=== PATIENT | male | born 1940 | race Caucasian/White ===

== ENCOUNTER 2023-09-18 12:28 | Emergency (ER) | payer MEDICARE, OTHER, SELFPAY ==
[2023-09-18 12:36] VITALS: BP 125/85; PULSE 76; RESP 22; TEMP 36.4; O2SAT 96; BMI 25.0
--- NOTE | 2023-09-18 12:43 | CRLHL7_ITS ---
For Patients: As a result of the Century Cures Act, medical imaging exams and procedure reports are released immediately into your electronic medical record. You may view this report before your referring provider. If you have questions, please contact your health care provider. Indication: Trauma. Technique: Left wrist, 3 views. Comparison: None. Findings/Impression: Bones: Decreased osseous mineralization. Acute minimally displaced distal radius fracture with trace dorsal angulation. Additional minimally displaced ulnar styloid fracture. Joint spaces: Associated joint effusion. Soft tissues: Associated soft tissue swelling. Dictated by Prosper Puente MD @ 09/18/2023 1:33:36 PM (Electronically Signed)
--- NOTE | 2023-09-18 12:43 | CRLHL7_ITS ---
For Patients: As a result of the Cures Act, medical imaging exams and procedure reports are released immediately into your electronic medical record. You may view this report before your referring provider. If you have questions, please contact your health care provider. Indication: Trauma. Technique: Left shoulder, 3 views. Comparison: None. Findings/Impression: Bones: Superior elevation of the humerus likely related to chronic rotator cuff insufficiency. Otherwise, alignment is normal. No displaced fractures or bone lesions. Postsurgical changes of prior rotator cuff repair. Joint spaces: Moderate acromioclavicular and mild glenohumeral joint degenerative changes. Soft tissues: Unremarkable. Dictated by Prosper Puente MD @ 09/18/2023 1:26:11 PM (Electronically Signed)
--- NOTE | 2023-09-18 13:02 | ED_ITS ---
HPI - General Adult General Date Seen: 09/18/23 Chief complaint: Extremity Pain/Injury, Upper Stated complaint: L arm pain, fall Time Seen by Provider: 09/18/23 12:36 Source: patient and other Mode of arrival: ambulatory Limitations: no limitations History of Present Illness HPI narrative: Patient is an 82-year-old brought in by a friend. He had a fall yesterday while he was at work, he fell landing on his left arm. To me he complained of pain at the top of his shoulder, near the acromion. He has limited active range of motion, with abduction to only about 15?, extension is the same. Passive range of motion I am able to take him to 90?. He also has some bruising in his wrist area that his friend was concerned about. Patient did not complain of pain in that area, but he does have a little tenderness and a little pain with range of motion. No other injuries or complaints. Related Data Allergies Allergy/AdvReac Type Severity Reaction Status Date / Time Penicillins Allergy Unknown Verified 09/18/23 12:40 [facility] Surgical History (Updated 09/18/23 @ 14:57 by Brianna Agrawal) S/P arthroscopy of right shoulder (11/02/97) ?Z98.890 - Other specified postprocedural states (ICD-10) S/P arthroscopy of left shoulder (12/26/01) ?Z98.890 - Other specified postprocedural states (ICD-10) Social History Smoking Status: Smoker, status unknown Non-prescribed substance use: denies use Exam Narrative: Exam Narrative: Vital signs reviewed In general, alert, nontoxic elderly male. Hard of hearing. Head: Normocephalic, atraumatic. Neck: Nontender to palpation. Extremities: The left shoulder is point tender over the lateral shoulder. No obvious deformity. There is bruising noted on the dorsal and volar side of the wrist and distal forearm. A little bit of mild tenderness with compression of the radius and ulna. He has extension and flexion intact at the wrist but says it is mildly uncomfortable. Distal CMS normal. Skin: Warm dry well perfused. Const: Vital Signs, click to edit/add: Vital Signs - 24 hr 09/18/23 12:36 09/18/23 14:09 Temperature 97.6 F 97.6 F Pulse Rate [Pulse Oximeter] 76 76 Respiratory Rate 22 22 Blood Pressure [Le ft Upper Arm] 125/85 125/85 Pulse Oximetry 96 Oxygen Delivery Me thod Room Air Documenting provider has reviewed patient's vital signs: yes Course Course ED Course: Patient had x-rays of the left shoulder and the left wrist. In the left shoulder there are postsurgical changes but I do not see any acute findings. Of the wrist, there is a minimally displaced fracture of the radius and the ulnar styloid. Final radiology is the same. I placed a sandwich plan on the left wrist using [employer] into [employer] wraps. Tolerated well. Will give him a sling. We made him a follow-up appointment with Orthopedics. Injury of the shoulder is unclear at this time although he has previous rotator cuff surgery and certainly could have re-injured the rotator cuff. Vital Signs Vital signs: Initial Vital Signs Temperature 97.6 F 09/18/23 12:36 Temperature Source Temporal Artery Scan 09/18/23 12:36 Pulse Rate 76 09/18/23 12:36 Pulse Strength 3+ Normal 09/18/23 12:36 Respiratory Rate 22 09/18/23 12:36 Blood Pressure 125/85 09/18/23 12:36 Blood Pressure Mean 98 09/18/23 12:36 Pulse Oximetry 96 09/18/23 12:36 Oxygen Delivery Method Room Air 09/18/23 12:36 Vital Signs Temperature 97.6 F 09/18/23 12:36 Pulse Rate 76 09/18/23 12:36 Respiratory Rate 22 09/18/23 12:36 Blood Pressure 125/85 09/18/23 12:36 Pulse Oximetry 96 09/18/23 12:36 Oxygen Delivery Method Room Air 09/18/23 12:36 Temperature 97.6 F 09/18/23 14:09 Pulse Rate 76 09/18/23 14:09 Respiratory Rate 22 09/18/23 14:09 Blood Pressure 125/85 09/18/23 14:09 Pulse Oximetry 96 09/18/23 12:36 Oxygen Delivery Method Room Air 09/18/23 12:36 Discharge Plan Discharge Clinical Impression: Fracture of wrist, Injury of shoulder, left Patient Disposition: Home, Self-Care Condition: Stable Instructions: Rotator Cuff Injury (ED), Wrist Fracture in Adults (ED) Additional Instructions: Splint until follow-up. Sling as needed for comfort. Tylenol as needed for pain. Ice may be helpful as well. Return for new or worsening symptoms. Follow Up/Referrals: Rome Fuller MD [Primary Care Provider] - Stand Alone Forms: [employer] Info Instructions
[2023-09-18 14:09] VITALS: BP 125/85; PULSE 76; RESP 22; TEMP 36.4
== END 2023-09-18 14:05 | disposition home or self-care (01) ==
PROVIDERS: Emergency Provider Emergency Medicine; PCP Family Medicine
DX: S52.615A Nondisplaced fracture of left ulna styloid process, initial encounter for closed fracture (principal); S52.515A Nondisplaced fracture of left radial styloid process, initial encounter for closed fracture; W19.XXXA Unspecified fall, initial encounter
CPT/HCPCS: 29125; 73030; 73110; 99283; 99284

== ENCOUNTER 2024-03-03 07:25 | Outpatient (CLI) | payer MEDICARE, OTHER, SELFPAY ==
--- OUTSIDE RECORDS SUMMARY | 2024-03-03 07:31 | XMS_ITS | Data Portability ---
Author Name Unknown Address [address] [place] [address] Phone [phone] Organization [facility], [facility] Address [address] [place] [address] Assessment No assessment recorded. Plan of Treatment Reminders Order Date Submit Date Provider Last Modified By Organization Details Last Modified Time Details Appointments None recorded. Lab None recorded. Referral oncologist referral 2020 021 [facility], [address], [address], [place], [address], 11:44:19 Procedures None recorded. Surgeries None recorded. Imaging US, renal 2020 021 [email or web address] 30 [facility], [address], [place], [address], 08:44:55 CT, chest, w/ contrast 2020 021 [facility], [address], [place], [address], 17:12:12 Medication Orders gentamicin 40 mg/mL injection solution 2020 021 [email or web address] [facility], [address] [place] [address], [address], 10:40:40 Casodex 50 mg tablet 2020 021 [facility], [address], [place], [address], 10:40:42 Patient TargetsNo targets recorded. Patient InstructionsNo instructions recorded. Reason for Referral Referring Physician: Jamar pack, Urology, Encounter Date: 04/21/2021 Results Created Date Observation Date Name Description Value Unit Range Abnormal Flag LastModifiedBy Organization Detail LastModifiedTime 04/15/20 21 04/11/2021 measu remen t of post- voidi ng resid ual urine and/o r bladd er capac ity (PROC ) No observ ation record ed. [email or web address] Not Available 04/15/2021 09:20:26 04/21/20 21 04/19/2021 CT, chest , w/ contr ast No observ ation record ed. [email or web address] [facility] [address], [place], [address], 04/21/2021 17:12:12 04/21/20 21 04/19/2021 NM, bone scan, whole body No observ ation record ed. [email or web address] Not Available 04/21/2021 17:12:59 04/21/20 21 04/21/2021 imagi ng/di agnos tic resul t No observ ation record ed. [email or web address] Not Available 04/21/2021 17:15:10 08/19/20 21 08/15/2021 measu remen t of post- voidi ng resid ual urine and/o r bladd er capac ity (PROC ) No observ ation record ed. [email or web address] Not Available 08/19/2021 09:33:44 Result Notes None recorded. Procedures Surgical History Date Name Laterality Status Provider Name and Address Organization Details Recorded Time 04/21/20 21 Prostate Biopsy Procedure completed Jamar Moss MD [address] [place] [address],[address], [place], [address], [facility] 04/21/2021 10:14:53 laminectomy completed TAMRA Carrillo [facility] 04/21/2021 10:37:04 tonsillectomy completed TAMRA Carrillo [facility] 04/21/2021 10:37:18 Imaging Results Imaging Date Name Status LastModified by Organiz ation Details LastModified Time 04/11/2021 measurement of post-voiding residual urine and/or bladder capacity (PROC) completed Information not available 04/15/2021 09:20:26 04/19/2021 CT, chest, w/ contrast completed [email or web address] [facility] [address], [place], [address], 04/21/2021 17:12:12 04/19/2021 NM, bone scan, whole body completed Information not available 04/21/2021 17:12:59 04/21/2021 imaging/diagnos tic result completed [email or web address] Information not available 04/21/2021 17:15:10 08/15/2021 measurement of post-voiding residual urine and/or bladder capacity (PROC) completed Information not available 08/19/2021 09:33:44 Procedure Notes None recorded. Medical Equipment None Reported. Allergies Allergen ID Allergen Name Allergen Category Reaction Reaction Severity Criticality Documentation Date Start Date Code Code System Note Provider Name and Address Organization Details Recorded Time 414308 Medicinal product containin g penicilli n and acting as antibacte rial agent (product) medicatio n Not available Not available Not available 04/21/2021 74324 05 SNOMED Beverleybjorn Mosquedadasia lux [facility] 10:01:28 402168 bupropion Not available Not available Not available Not available 04/21/2021 74127 RxNorm Beverley Bahsultana lux [facility] 10:01:42 Medications Name Sig Start Date Stop Date Status Note LastModified by Organization Details LastModified Time Casodex 50 mg tablet Take 1 tablet every day by oral route. 2020 active Not Available Not Available Not Avai lable Cipro 500 mg tablet Cipro 500mg #8 PO BID starting day before biopsy 2020 active Cipro 500mg #8 BID starting day before biopsy Not Available Not Available Not Available gentamicin 40 mg/mL injection solution Take 80 mg by injection route. 2020 active fred barroso Not Available Not Available Not Available Vitals Date Recorded Body height Body mass index (BMI) Body weight Provider Name and Address Organization Details Last Updated DateTime 04/21/2021 172.72 cm 24 kg/m2 18597.59 g TAMRA Carrillo [facility] 04/21/2021 10:01:19 Social History Question Answer Notes LastModified by Organizat ion Details LastModified Time Tobacco Smoking Status Former Smoker 1991 Beverley MosquedaTAMRA izquierdo [facility] 04/21/2021 10:36:12 When Did You Quit Smoking? 14+yearssinc elastcigaret te [email or web address] Information not available 04/21/2021 What Was The Date Of Your Most Recent Tobacco Screening? 04/21/2021 [email or web address] Information not available 04/21/2021 Sex: Male Functional Status None recorded. Mental Status None recorded. Family History Nothing Reported. Medical History Condition Response Depression Y GERD/Acid Reflux Y Past Encounters Encounter ID Performer Location Encounter Start Date Encounter Closed Date Diagnosis/Indication Diagnosis SNOMED-CT Code [id number] Jamar Moss MD [facility] [address] [place] [address] 04/21/2021 09:38:47 04/25/2021 09:11:18 Prostate nodule 614240069491395 Renal mass 164996767 Lung mass 170633415 Lower urin noble tract symptoms due to benign prostatic hypertrophy 05685774556126 Health Concerns Section Related Observation LastModified by Organization Detai ls LastModified Time None Recorded Concern Status LastModified by Organization Details LastModified Time None Recorded Advance Directives Directive None Recorded Payers Encounter Date Sequence Insurance Name Policy Number Policy Arechiga Covered Member ID Arechiga Member ID Guarantor Name 04/21/2021 1 MEDICA - DOS ON OR AFTER 2020 - [employer] GOVERNMENT PROGRAMS - ADVANTAGE SOLUTION (MEDICARE REPLACEMENT/A DVANTAGE - PPO) [id number] Jose Chan [id number] Jose Chan Notes Date Note Type Note Provider Name and Address Organization Details Recorded Time 04/21/2021 text/html HPI Notes: 80 yo male presented with with constipation and frequent urination for 6 months - examination revealed Right prostate nodule (hard / fixed). PSA - 327. He was noted to have incomplete bladder emptying (PVR = 127 mL). Oxybutynin was stopped. He was started on Flomax 0.4 mg daily. 04/21/21 - He presents for TRUS bx of the prostate. urinary frequency. He voids every 60 minutes during the day and 2-3x/night. He still has urgency with occasional leakage and variable stream. He denies hesitancy or dysuria. His constipation has improved. PSA - 327.32 (04/11/21) CT scan (04/19/21) - Prostate - 3.4 cm mass in Right prostate - extensive right pelvic sidewall / retroperitoneal adenopathy - numerous sclerotic bone mets - Left renal mass (1.4 cm) (lower pole medial) - ? 2.5 cm mass in Left lower lung Bone scan (04/19/21) - diffuse skeletal metastases Jamar Moss MD [address], [place], [address], [facility] 04/21/2021 10:46:26
--- OUTSIDE RECORDS SUMMARY | 2024-03-03 07:31 | XMS_ITS | Clinical Summary ---
Author Name Unknown Organization [facility] Address [place], [place] [address] Care Team Providers Care Live Hanger Name Role Phone Rome Fuller MD Primary Care Provider [phone] Abdulkadir Sandoval Unavailable [phone] Jamar Moss MD Unavailable [phone] Allergies Active Allergy Reactions Criticality Noted Date Comments Bupropion 03/14/2010 Patient felt hot spots on back area, painful. Penicillins 05/24/2007 Medications Medication Sig Dispensed Refills Start Date End Date Status GLUCOSAMINE-CHONDR OITIN COMPLX CAP daily 0 11/23/2008 Active multivitamin (MVI) tablet Take 1 tablet by mouth once daily. 0 11/17/2014 Active aspirin chewable 81 mg chewable tablet Take 1 tablet by mouth once daily with a meal. 0 03/05/2020 Active apalutamide 60 mg tab Take 120 mg by mouth once daily. 0 02/16/2022 Active cyclobenzaprine (FLEXERIL) 5 mg tabletIndications: Mid back pain on left side Take 1 Tablet (5 mg) by mouth 3 times daily if needed for Muscle Spasm. May cause drowsiness. 30 Tablet 05/31/2022 Active albuterol HFA (PRO-AIR; VENTOLIN; PROVENTIL) 90 mcg/actuation inhalerIndications :Chronic obstructive pulmonary disease, unspecified COPD type (HC) Inhale 1-2 Puffs by mouth every 4 hours if needed for Shortness of Breath 1st choice. 1 Each 2 11/05/2023 Active atorvastatin (LIPITOR) 20 mg tabletIndications: Cerebrovascular accident (CVA) of left thalamus (HC) Take 1 Tablet (20 mg) by mouth at bedtime. For Cholesterol. 90 Tablet 3 11/05/2023 Active fluticasone (50 mcg per actuation) nasal solution (FLONASE)Indicatio ns:Seasonal allergic rhinitis, unspecified trigger Inhale 1 Sherrill to both nostrils once daily. 48 g 3 11/05/2023 Active tamsulosin (FLOMAX) 0.4 mg capsuleIndications :Benign prostatic hyperplasia with incomplete bladder emptying Take 1 Capsule (0.4 mg) by mouth once daily after a meal. 90 Capsule 3 11/05/2023 Active tiotropium (spiriva) 18 mcg inhalation capsuleIndications :Chronic obstructive pulmonary disease, unspecified COPD type (HC) Inhale 1 Capsule (18 mcg) by mouth once daily. 90 Capsule 3 11/05/2023 Active traZODone (DESYREL) 150 mg tabletIndications: Insomnia, idiopathic Take 1 Tablet (150 mg) by mouth at bedtime. For sleep. 90 Tablet 3 11/05/2023 Active diphenhydrAMINE-ac etaminophen 25-500 mg (TYLENOL PM) 25-500 mg tablet Take 1 Tablet by mouth. Active losartan (COZAAR) 25 mg tabletIndications: Nonrheumatic mitral valve regurgitation Take 1 Tablet (25 mg) by mouth once daily. 90 Tablet 3 11/09/2023 Active HYDROcodone-acetam inophen (10-325 mg/tablet) Take 1 Tablet by mouth 3 times daily if needed for Pain. Active naproxen sodium 220 mg cap Take 1 Tablet by mouth once daily. Active famotidine (PEPCID) 20 mg tablet Take 20 mg by mouth once daily. 09/19/2023 Active iron,carbonyl-tasha min C (Vitron-C) 65 mg iron- 125 mg Delayed-Release tablet Take 1 Tablet by mouth two times daily with meals. 11/22/2023 Active leuprolide, 3 month, (ELIGARD) 22.5 mg subcutaneous syringe Inject 22.5 mg subcutaneous. 01/31/2024 Active methylPREDNISolone sod suc (SOLU-MEDROL) 2 gram injection Inject 125 mg intravenous one time. 01/18/2023 Active mometasone-formote rol (DULERA) 200-5 mcg/actuation inhalerIndications :Chronic obstructive pulmonary disease, unspecified COPD type (HC) Inhale 2 Puffs by mouth two times daily. 39 g 3 12/07/2023 Active polyethylene glycol-electrolyte (GOLYTELY) 236-22.74-6.74 -5.86 gram suspensionIndicati ons:Encounter for screening colonoscopy Drink 2 liters the day before the procedure and 2 liters 6 hours prior to procedure. 4000 mL 02/01/2024 Active polyethylene glycoL (MIRALAX) 17 gram/scoop powderIndications: Constipation, unspecified constipation type Mix 8.5gm up to 17gm of powder in liquid and drink once daily as needed. Use as needed for constipation. 850 g 2 01/13/2024 Active clopidogreL (PLAVIX) 75 mg tablet Take 75 mg by mouth once daily. 02/27/2020 Discontinue d(*Patient states no longer taking) Active Problems Problem Noted Date Diagnosed Date Malignant neoplasm metastati c to lung, unspecified laterality 12/08/2023 Anemia, unspecified 12/07/2023 Systolic murmur 09/19/2023 Overview: Aug 2023: 1st heard. Secondary malignant neoplasm of bone 01/31/2022 Prostate cancer 01/31/2022 Cerebrovascular accident (CVA) of left thalamus 03/05/2020 Overview: February 2020. Plavix 75 mg daily for one month. Aspirin 81 mg lifelong. Adenomatous colon polyp 01/29/2018 Overview: Colonoscopy 01/2018 polyp, repeat in 5 years COPD (chronic obstructive pulmonary disease) Overview: November 2023: dulera increased to 200mg dose twice daily. Anxiety state, unspecified 02/28/2011 Osteoporosis, unspecified 03/14/2010 Shingles 03/11/2010 Esophageal reflux 11/02/2009 Overview: EGD 10/2009 reflux, repeat EGD in 5 years EGD 11/2014 no montoya's, no follow up needed PLMD (periodic limb movement disorder) 9 Central Sleep Apnea -summary note 01/04/2009 01/0 03/2009 Bilateral primary osteoarthritis of knee 007 Overview: Synvisc right knee not helpful 2010. Right. knee Cortisone Helpful Jul 2012. Repeat Right knee cortisone April 2013, great benefit for pain 2 weeks out and continuing. Jul 2014: Dr. Griffith did right knee cortisone. March 2015: Bilateral knee cortisone by Dr. Fuller. (First left knee cortisone injection), 90 % better 1 week out. May 2022: Repeat bilateral knee cortisone injections by Dr. Fuller. December 2022: Repeat bilateral knee cortisone injections by Dr. Fuller. Aug 2023: Repeat bilateral knee cortisone injections by Dr. Fuller. Insomnia, unspecified 10/30/2006 Resolved Problems Problem Noted Date Diagnosed Date Resolved Date Mild recurrent major depression 02/14/2010 02/28/2011 Unspecified sleep apnea 10/30/200603/20 Encounters Date Type Department Care Team Description 03/02/2024 Travel 02/22/2024 9:05 AM CDT Preop Visit [facility] [address] [place] [address] Rome Fuller MD Preoperative Exam (DOS: 03/03/2024/Colonoscopy and EGD/[facility]/Dr Bear) 02/22/2024 Travel 02/18/2024 Travel 01/29/2024 Telephone [facility] [address] [place] [address] Rome Fuller MD Questions 01/17/2024 Orders Only [facility] [address] [place] [address] Ramos Bear MD <No scans attached> 01/13/2024 Refill [facility] [address] [place] [address] Tia Lynne PA Refill Request (Polyethylene Glycol) 12/12/2023 Telephone [facility] [address] [place] [address] Ramos Bear MD Referral 12/07/2023 9:05 AM NEWS PHOTOGRAPHER [facility] [address] [facility] [address] Rome Fuller MD Follow Up (Blood Pressure and review labs) 12/07/2023 Travel 12/05/2023 Telephone [facility] [address] [place] [address] Rome Fuller MD Referral (Referral for GI Consult) from Last 3 Months Immunizations Name Administration Dates Next Due AMB INFLUENZA IIV3 (AGE 65+ YRS) PF (Flu Clinic Only) 09/20/2017 AMB Influenza, IIV3 (Age >=3 years)(Flu Clinic Only) 08/14/2012,10/16/2008 Amb Influenza, Inact (High-d ose) (Flu Clinic Only) 08/21/2014 COVID-19 Vaccine Spikevax (M oderna 50mcg/0.5mL) 12YO+ [id number] Formula PF 09/17/2023 COVID-19 vaccine (Pfizer-Bio NTech 30mcg/0.3mL) 12YO+ BIVALENT PF, MDV 11/03/2022 COVID-19 vaccine (Pfizer-Bio NTech 30mcg/0.3mL) 12YO+ MERARI-SUCROSE PF, MDV 04/12/2022 COVID-19 vaccine (Pfizer-Bio NTech 30mcg/0.3mL) PF, MDV 09/23/2021,01/25/2021,01/04/2021 Influenza A (H1N1), Inactivated 11/17/2009 Influenza, High-dose Inactivated 08/17/2016,08/19,08/21/2014 Influenza, IIV3 (Age 6-35 mos) 08/25/2011,2009 Influenza, IIV3 (Age >=3 years) 09/02/20 13,08/14/2012,08/25/2011,10/16,09/19/2007,09/23/2005,09/03/2004 ,09/30/2003 Influenza, Inactivated AIIV4 (Age 65+ Years) Preserv Free 09/17/2023,09/11/2022,08/15/2021,08/14 Influenza, Inactivated IIV3 (Age 65+ Years) Preserv Free 08/21/2019,07/16/2018,09/20/2017 Pneumococcal Poly,23-Valent (Pneumovax) 08/10/2005 Pneumococcal conj 13-Valent (Prevnar 13) 09/03/2015 RSV, Recombinant ADJ Reconst ituted (Arexvy 120MCG/0.5mL) 11/16/2023 Td (Age >=7 Years) 05/19/2002 Td, Preservative Free (age >= 7 Years) 1 Tdap 10/11/2019 Family History Medical History Relation Name Comments Diabetes Mother borderline Heart Disease Mother Cancer-breast Sister 1 metastatic Other Sister 2 fibromyalgia Unknown Sister 3 Relation Name Status Comments Father MVA Mother Sister 1 Sister 2 Sister 3 Social History Tobacco Use Types Packs/Day Years Used Date Smoking Tobacco: Former Cigarettes Q uit: 05/24/1992 Smokeless Tobacco: Never Tobacco Cessation:Counseling Given: Yes Comments:quit in his 20s Alcohol Use Standard Drinks/Week Comments No 0 (1 standard drink = 0.6 oz pur e alcohol) PHQ-2 Answer Date Recorded PHQ-2 TOTAL SCORE 2 11/05/2023 Social Connections Answer Date Recorded Frequency of Communication with Friends and Fami ly 0 09/14/2023 Financial Resource Strain Answer Date R ecorded Difficulty of Paying Living Expenses 3 09/14/2023 Difficulty of Paying Living Expenses Not on file 09/14/2023 Food Insecurity Answer Date Recorded Worried About Running Out of Food in the Last Ye ar 1 09/14/2023 Transportation Needs Answer Date Record ed Lack of Transportation (Medical) 1 09/14/2023 Housing Stability Answer Date Recorded Unable to Pay for Housing in the Last Year 1 09/14/2023 Sex and Gender Information Value Date Recorded Sex Assigned at Not on file Gender Identity Not on file Sexual Orientation Not on file Obstetrics History Last Filed Vital Signs Vital Sign Reading Time Taken Comments Blood Pressure 128/64 02/22/2024 9:09 AM CDT Pulse 60 02/22/2024 9:09 AM CDT Temperature 36.8 ??C (98.3 ??F) 11/30/2023 1:03 PM CS T Respiratory Rate 24 03/22/2018 6:08 PM CDT Oxygen Saturation 100% 02/22/2024 9:09 AM CDT Inhaled Oxygen Concentration - - Weight 72.8 kg (160 lb 8 oz) 02/22/2024 9:09 AM CDT Height 162.6 cm (5' 4) 11/05/2023 8:35 AM NEWS PHOTOGRAPHER Body Mass Index 27.55 11/05/2023 8:35 AM NEWS PHOTOGRAPHER Plan of Treatment Upcoming Encounters Date Type Department Care Team (Late st Contact Info) Description 03/03/2024 7:45 AM CDT Office Visit [facility] at [facility] [address] [place] [address] Ramos Bear MD [address] [place] [address] 03/24/2024 7:40 AM CDT Office Visit [facility] [address] [place] [address] Shahzad Griffith MD [address] [place] [address] Health Maintenance Due Date Last Done Comments Zoster (shingles) series for age 50+ (1 of 2) 1959 COVID-19 vaccine series ( season) 2023 09/17/2023, 11/03/2022, 04/12/2022, Additional history exists Influenza for age 65+ 07/20/2024 09/17/2023 , 09/11/2022, 08/15/2021, Additional history exists BMI (ht and wt on same day) for age 18+ 11/05/2024 11/05/2023, 11/03/2022, 02/22/2021, Additional history exists Medicare Wellness for age 65+ 11/05/2024, 11/03/2022, 02/22/2021 Depression screening for age 12+ 11/09/2024 11/09/2023, 11/05/2023, 11/03/2022, Additional history exists Tetanus booster 10/11/2029 10/11/2019, 11/19, 05/19/2002 Pneumococcal series for age 65+ Completed 5, 08/10/2005 Tdap Completed 10/11/2019 Procedures Procedure Name Priority Date/Time Associated Diagnosis Comments CREATININE Routine 02/22/2024 10:09 AM CDT Preoperative examination POTASSIUM Routine 02/22/2024 10:09 AM CDT Preoperative examination from Last 3 Months Results * POTASSIUM (02/22/2024 10:09 AM CDT) POTASSIUM 4.6 3.5 - 5.1 mmol/L 02/22/2024 5:16 PM CDT [facility] Blood BLOOD SPECIMEN / Unknown Venipuncture / Unknown 02/22/2024 10:09 AM CDT 02/22/2024 10:11 AM CDT Rome Fuller MD CHEMISTRY [facility] [address] [place] [id number], * (ABNORMAL) CREATININE (02/22/2024 10:09 AM CDT) eGFR 70(L) >90 mL/min/1.7 3m2 02/22/2024 5:16 PM CDT [facility] Comment:As of 2022, eG FR is calculated by the CKD-EPI creatinine equation without race adjustment. ??eGFR can be influenced by muscle mass, exercise, and diet. ??The reported eGFR is an estimation only and is only applicable if the renal function is stable. CREATININE 1.05 0.70 - 1.20 mg/dL 02/22/2024 5:16 PM CDT [facility] Blood BLOOD SPECIMEN / Unknown Venipuncture / Unknown 02/22/2024 10:09 AM CDT 02/22/2024 10:11 AM CDT Rome Fuller MD CHEMISTRY [facility] [address] [place] [id number], [place] from Last 3 Months Additional Health Concerns Infection Onset Date Last Indicated [id number] Comment:Order contact precautions. Order consult to Infection Prevention to determine if patient may be removed from precautions. +MDRO <12/07/21, urine, ESBL E.coli> 12/07/2021 12/07/2021 Care Teams Live Hanger Relationship Specialty Start Date End Date Rome Fuller MD [address] [place] [address] PCP - General Family Practice 08/23/23 Abdulkadir Sandoval MBBS [address] [address] Oncology Oncology 11/05/23 Jamar Moss MD [address] [address] Urology Surgery - Urology 11/05/23
--- NOTE | 2024-03-03 09:28 | P.ANES_ITS ---
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
--- NOTE | 2024-03-03 09:37 | W.ANESCHARGE ---
Anesthesia Charges Start Date/Time Anesthesia Start Date: 03/03/24 Anesthesia Start Time: 08:40 Stop Date/Time Anesthesia Stop Date: 03/03/24 Anesthesia Stop Time: 09:20 Summary Extremes of Age - Over 70 or under 1: MDA
== END 2024-03-03 07:26 | disposition home or self-care (01) ==
PROVIDERS: PCP Family Medicine; Visit Provider Internal Medicine Gastroenterology
DX: D50.9 Iron deficiency anemia, unspecified (principal); K63.5 Polyp of colon; K57.30 Diverticulosis of large intestine without perforation or abscess without bleeding; Z86.010 Personal history of colon polyps
CPT/HCPCS: 00813; 43239; 45385; 88305; 99100; J2704

== ENCOUNTER 2024-05-13 14:15 | Outpatient (CLI) | payer MEDICARE, OTHER, SELFPAY ==
--- OUTSIDE RECORDS SUMMARY | 2024-05-13 14:17 | XMS_ITS | Clinical Summary ---
Author Organization [facility] Address [place], [place] [address] Care Team Providers Care Winding Machine Operator Name Role Phone Rome Fuller MD Primary Care Provider [phone] Abdulkadir Sandoval Unavailable [phone] Jamar Moss MD Unavailable [phone] Allergies Active Allergy Reactions Criticality Noted Date Comments Bupropion 03/14/2010 Patient felt hot spots on back area, painful. Penicillins 05/24/2007 Medications Medication Sig Dispensed Refills Start Date End Date Status GLUCOSAMINE-CHONDROI TIN COMPLX CAP daily 0 11/23/2008 Active multivitamin (MVI) tablet Take 1 tablet by mouth once daily. 0 11/17/2014 Active aspirin chewable 81 mg chewable tablet Take 1 tablet by mouth once daily with a meal. 0 03/05/2020 Active apalutamide 60 mg tab Take 120 mg by mouth once daily. 0 02/16/2022 Active cyclobenzaprine (FLEXERIL) 5 mg tabletIndications:Mi d back pain on left side Take 1 Tablet (5 mg) by mouth 3 times daily if needed for Muscle Spasm. May cause drowsiness. 30 Tablet 05/31/2022 Active albuterol HFA (PRO-AIR; VENTOLIN; PROVENTIL) 90 mcg/actuation inhalerIndications:C hronic obstructive pulmonary disease, unspecified COPD type (HC) Inhale 1-2 Puffs by mouth every 4 hours if needed for Shortness of Breath 1st choice. 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 For Cholesterol. 90 Tablet 3 11/05/2023 Active fluticasone (50 mcg per actuation) nasal solution (FLONASE)Indications :Seasonal allergic rhinitis, unspecified trigger Inhale 1 [place] to both nostrils once daily. 48 g 3 11/05/2023 Active tamsulosin (FLOMAX) 0.4 mg capsuleIndications:B enign prostatic hyperplasia with incomplete bladder emptying Take 1 Capsule (0.4 mg) by mouth once daily after a meal. 90 Capsule 3 11/05/2023 Active traZODone (DESYREL) 150 mg tabletIndications:In somnia, idiopathic Take 1 Tablet (150 mg) by mouth at bedtime. For sleep. 90 Tablet 3 11/05/2023 Active diphenhydrAMINE-acet aminophen 25-500 mg (TYLENOL PM) 25-500 mg tablet Take 1 Tablet by mouth. Active losartan (COZAAR) 25 mg tabletIndications:No nrheumatic mitral valve regurgitation Take 1 Tablet (25 mg) by mouth once daily. 90 Tablet 3 11/09/2023 Active HYDROcodone-acetamin ophen (10-325 mg/tablet) Take 1 Tablet by mouth 3 times daily if needed for Pain. Active naproxen sodium 220 mg cap Take 1 Tablet by mouth once daily. Active famotidine (PEPCID) 20 mg tablet Take 20 mg by mouth once daily. 09/19/2023 Active iron,carbonyl-vitami n C (Vitron-C) 65 mg iron- 125 mg Delayed-Release tablet Take 1 Tablet by mouth two times daily with meals. 11/22/2023 Active leuprolide, 3 month, (ELIGARD) 22.5 mg subcutaneous syringe Inject 22.5 mg subcutaneous. 01/31/2024 Active methylPREDNISolone sod suc (SOLU-MEDROL) 2 gram injection Inject 125 mg intravenous one time. 01/18/2023 Active polyethylene glycol-electrolyte (GOLYTELY) 236-22.74-6.74 -5.86 gram suspensionIndication s:Encounter for screening colonoscopy Drink 2 liters the day before the procedure and 2 liters 6 hours prior to procedure. 4000 mL 02/01/2024 Active polyethylene glycoL (MIRALAX) 17 gram/scoop powderIndications:Co nstipation, unspecified constipation type Mix 8.5gm up to 17gm of powder in liquid and drink once daily as needed. Use as needed for constipation. 850 g 2 01/13/2024 Active fluticasone vmz-eylylyevflld-hme anterol (TRELEGY ELLIPTA) 200-62.5-25 mcg inhalerIndications:C hronic obstructive pulmonary disease, unspecified COPD type (HC) Inhale 1 Puff by mouth once daily. Rinse mouth after use 90 Each 3 03/25/2024 Active Active Problems Problem Noted Date Diagnosed Date [...] Colonoscopy 01/2018 polyp, repeat in 5 years Colonoscopy 02/2024 hyperplastic polyp, no follow up needed COPD (chronic obstructive pulmonary disease) Overview: November 2023: dulera increased to 200mg dose twice daily. February 2024: Due to cost Trelligy ellipta prescription sent and Removing spiriva and dulera. Cost was only reason for change. Anxiety state, unspecified 02/28/2011 Osteoporosis, unspecified 03/14/2010 Shingles 03/11/2010 Esophageal reflux 11/02/2009 Overview: EGD 10/2009 reflux, repeat EGD in 5 years EGD 11/2014 no montoya's, no follow up needed EGD 02/2024 normal, no follow up needed PLMD (periodic limb [...] Encounters Date Type Department Care Team Description 05/11/2024 Travel 03/25/2024 Telephone [facility] [address] [place] [address] Rome Fuller MD Follow Up (Returning Provider Call) 03/24/2024 7:40 AM CDT Office Visit [facility] [address] [place] [address] Shahzad Griffith MD Musculoskeletal Problem (Consult bilateral knee pain right is worse per Dr. Fuller discuss [place]) 03/24/2024 Telephone [facility] [address] [place] [address] Rome Fuller MD Pharmacist Medication Management (tiotropium (spiriva)/mometasone-fo rmoterol (DULERA) /FYI alternates treligy elyipa or brectri aerofphere) 03/24/2024 Travel 03/17/2024 Refill [facility] [address] [place] [address] Tia Lynne PA Refill Request (Hydrocodone-acetaminop hen) 03/03/2024 7:45 AM CDT Office Visit [facility] at [address] [phone] Ramos Bear MD 03/03/2024 Lab Requisition [facility] [phone] Ramos Bear MD 03/03/2024 Lab Requisition [facility] [phone] Ramos Bear MD 03/02/2024 Travel 02/22/2024 9:05 AM CDT Preop Visit [facility] [address] [place] [address] Rome Fuller MD Preoperative Exam (DOS: 03/03/2024/Colonoscopy and EGD/[facility]/Dr Bear) 02/22/2024 Travel 02/18/2024 Travel from Last 3 Months Immunizations Name Administration Dates Next Due AMB INFLUENZA IIV3 (AGE 65+ YRS) PF (Flu Clinic Only) 09/20/2017 AMB Influenza, IIV3 (Age >=3 years)(Flu Clinic Only) 08/14/2012,10/16/2008 Amb Influenza, Inact (High-d ose) (Flu Clinic Only) 08/21/2014 COVID-19 Vaccine Spikevax (M oderna 50mcg/0.5mL) 12YO+ [id number] Formula PF 02/28/2024,09/17/2023 COVID-19 vaccine (Pfizer-Bio NTech 30mcg/0.3mL) 12YO+ BIVALENT [...] Sign Reading Time Taken Comments Blood Pressure 145/74 03/24/2024 7:48 AM CDT Pulse 67 03/24/2024 7:48 AM CDT Temperature 36.1 ??C (97 ??F) 03/24/2024 7:48 AM CDT Respiratory Rate 24 03/22/2018 6:08 PM CDT Oxygen Saturation 99% 03/24/2024 7:48 AM CDT Inhaled Oxygen Concentration - - Weight 72.3 kg (159 lb 6.4 oz) 03/24/2024 7:48 A M CDT Height 162.6 cm (5' 4) 11/05/2023 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 Body Mass Index 27.36 11/05/2023 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 Plan of Treatment Upcoming Encounters Date Type Department Care Team (Late st Contact Info) Description 05/13/2024 3:00 PM CDT Procedure Only [facility] [address] [place] [phone] Shahzad Griffith MD [address] [place] [address] Arrived 05/15/2024 11:10 AM CDT Office Visit [facility] [address] [place] [address] Rome Fuller MD [address] [place] [address] Health Maintenance Due Date Last Done Comments Zoster (shingles) series for age 50+ (1 of 2) 1959 COVID-19 vaccine series ( season) 2024 02/28/2024, 09/17/2023, 11/03/2022, Additional history exists Influenza for age 65+ [...] Procedure Name Priority Date/Time Associated Diagnosis Comments LAB TRACKING EVENT Routine 03/03/2024 9: 15 AM CDT LAB TRACKING EVENT Routine 03/03/2024 8: 50 AM CDT PATH TISSUE EXAM Routine 03/03/2024 8:50 AM CDT ESOPHAGOGASTRODUODENOSCOPY Routine 03/03 12:00 AM CDT Iron deficiency anemia, unspecified iron deficiency anemia type COLONOSCOPY SCREENING Routine 03/03/2024 12:00 AM CDT Iron deficiency anemia, unspecified iron deficiency anemia type CREATININE Routine 02/22/2024 10:09 AM CDT Preoperative examination POTASSIUM Routine 02/22/2024 10:09 AM CDT Preoperative examination from Last 3 Months Results * LAB TRACKING EVENT (03/03/2024 9:15 AM CDT) Only the most recent of2 resultswithin the time period is included. Other (Other) Client Collect / Unknown 03/03/2024 9:15 AM CDT 03/03/2024 9:48 PM CDT Ramos Bear MD LAB BILL ONLY [facility] [address] [place] [address], * PATH TISSUE EXAM (03/03/2024 8:50 AM CDT) Case Report Pathology Report ?Case: [id number] ? Authorizing Provider: ??Ramos Bear MD ?? Collected: ? 03/03/2024 0850 ? Ordering Location: ? [facility] ?Received: ?03/04/2024 0848 ? Pathologist: ? Erik Watson, ? MD ? Specimens: ?? A) - Duodenum ? B) - ? C) - Distal Esophagus Biopsy ? D) - Descending Colon Biopsy ? 03/05/2024 9:36 AM [facility] Final Diagnosis A) DUODENUM, BIOPSY: 1. Normal duodenal mucosa 2. Negative for celiac disease and other enteropathy B) STOMACH, ANTRUM AND BODY, BIOPSY: 1. Normal gastric antral and body mucosae 2. Negative for inflammation, Helicobacter and atrophy C) ESOPHAGUS, DISTAL, BIOPSY: 1. Normal esophageal squamous mucosa 2. Normal gastric fundic mucosa 3. Negative for reflux changes and eosinophilic esophagitis 4. Negative for intestinal metaplasia and dysplasia D) COLON, DESCENDING, POLYPECTOMY: Hyperplastic polyp 03/05/2024 9:36 AM [facility] Clinical Information Iron deficiency anemia. Upper endoscopy is grossly normal. Colonoscopy demonstrates a 4 mm descending colon polyp. 03/05/2024 9:36 AM [facility] Gross Description A) Received in formalin are 4 combs mucosal fragments ranging from 3 mm to 5 mm in greatest dimension, which are entirely submitted in one cassette. It is labeled with the patient's name and designated duodenal biopsy. B) Received in formalin are 6 combs mucosal fragments ranging from 3 mm to 5 mm in greatest dimension, which are entirely submitted in one cassette. It is labeled with the patient's name and designated random stomach biopsies. C) Received in formalin are 5 combs mucosal fragments ranging from 2 mm to 4 mm in greatest dimension, which are entirely submitted in one cassette. It is labeled with the patient's name and designated distal esophagus biopsies. D) Received in formalin is a combs mucosal fragment measuring 5 mm in greatest dimension, which is entirely submitted in one cassette. It is labeled with the patient's name and designated colon-descendi ng. Yuli Richards 03/04/2024 8:58 AM 03/05/2024 9:36 AM CDT [facility] Microscopic Description The final diagnosis is based on microscopic examination of appropriate sections of all specimens. 03/05/2024 9:36 AM CDT [facility] Additional Information Interpreted at [facility] - [address], [place] [address] 03/05/2024 9:36 AM CDT [facility] Other (Duodenum) 03/03/2024 8:50 AM CDT 03/04/2024 8:48 AM CDT Specimen (specimen) 03/03/2024 8:50 AM CDT 03/04/2024 8:48 AM CDT Specimen (specimen) (Distal Esophagus Biopsy) 03/03/2024 8:50 AM CDT 03/04/2024 8:48 AM CDT Specimen (specimen) (Descending Colon Biopsy) 03/03/2024 8:50 AM CDT 03/04/2024 8:48 AM CDT Ramos Bear MD PATHOLOGY/CYTOLOG Y Performing Organization Address City/State/[facility] Co de Phone Number [facility] [address] [place] [address], * ESOPHAGOGASTRODUODENOSCOPY (03/03/2024 12:00 AM CDT) Ramos Bear MD GI PROCEDURE ORD * COLONOSCOPY SCREENING (03/03/2024 12:00 AM CDT) Ramos Bear MD GI PROCEDURE ORD * POTASSIUM (02/22/2024 10:09 AM CDT) POTASSIUM 4.6 3.5 - 5.1 mmol/L 02/22/2024 5:16 PM CDT [facility] Blood BLOOD SPECIMEN / Unknown Venipuncture / Unknown 02/22/2024 10:09 AM CDT 02/22/2024 10:11 AM CDT Rome Fuller MD CHEMISTRY Performing Organization Address [facility] Co de Phone Number [facility] [address] [place] [address], * (ABNORMAL) CREATININE (02/22/2024 10:09 AM CDT) eGFR 70(L) >90 mL/min/1.7 3m2 02/22/2024 5:16 PM CDT [facility] Comment:As of 2022, eG FR is calculated by the CKD-EPI creatinine equation without race adjustment. ??eGFR can be influenced by muscle mass, exercise, and diet. ??The reported eGFR is an estimation only and is only applicable if the renal function is stable. CREATININE 1.05 0.70 - 1.20 mg/dL 02/22/2024 5:16 PM CDT [facility] Blood BLOOD SPECIMEN / Unknown Venipuncture / Unknown 02/22/2024 10:09 AM CDT 02/22/2024 10:11 AM CDT Rome Fuller MD CHEMISTRY Performing Organization Address [facility] Co de Phone Number [facility] [address] [place] [address], from Last 3 Months Additional Health Concerns Infection Onset Date Last Indicated MDRO-GNB Comment:Order contact precautions. Order consult to Infection Prevention to determine if patient may be removed from precautions. +MDRO <12/07/21, urine, ESBL E.coli> 12/07/2021 12/07/2021 Care Teams Winding Machine Operator Relationship Specialty Start Date End Date Rome Fuller MD [address] [place] [address] PCP - General Family Practice 08/23/23 Abdulkadir Sandoval MBBS [address] [address] Oncology Oncology 11/05/23 Jmaar Moss MD [address] [address] Urology Surgery - Urology 11/05/23
== END 2024-05-13 14:16 | disposition home or self-care (01) ==
LOC: INJ CL 14:15
PROVIDERS: PCP Family Medicine; Visit Provider Family Medicine
DX: M17.11 Unilateral primary osteoarthritis, right knee (principal); M25.561 Pain in right knee
CPT/HCPCS: 64454

== ENCOUNTER 2024-05-20 13:04 | Outpatient (CLI) | payer MEDICARE, OTHER, SELFPAY ==
--- OUTSIDE RECORDS SUMMARY | 2024-05-20 13:07 | XMS_ITS | Clinical Summary ---
Author Organization [facility] Address [place], [place] [address] Care Team Providers Care Biology Manager Name Role Phone Rome Fuller MD Primary Care Provider [phone] Abdulkadir Sandoval Unavailable [phone] Jamar Moss MD Unavailable [phone] Allergies Active Allergy Reactions Criticality Noted Date [...] :Seasonal allergic rhinitis, unspecified trigger Inhale 1 Peculiar to both nostrils once daily. 48 g [...] constipation. 850 g 2 01/13/2024 Active fluticasone znc-kdhauhsaiwds-yfr anterol (TRELEGY ELLIPTA) 200-62.5-25 mcg inhalerIndications:C hronic [...] Encounters Date Type Department Care Team Description 05/20/2024 2:00 PM CDT Procedure Only [facility] [address] [place] [address] Shahzad Griffith MD Arrived 05/19/2024 Travel 05/15/2024 12:00 PM CDT Ancillary Procedure [facility] [address] [place] [address] Arrived 05/15/2024 11:10 AM CDT Office Visit [facility] [address] [place] [address] Rome Fuller MD Ear Problem (Check both ears - possibly needs cleaning) 05/15/2024 Travel 05/13/2024 3:00 PM CDT Procedure Only [facility] [address] [place] [address] Shahzad Griffith MD Procedure (Right knee genicular nerve block ) 05/13/[address] [facility] Scanner 1 scan: (1-Ord) [facility], RT SUPERIOR MEDIAL, SUPERIOR LATERAL AND INFERIOR MEDIAL GENICULAR NERVE BLOCKS UNDER FLUROSC, 05/13/2024 05/11/2024 Travel 03/25/2024 Telephone [facility] [address] [place] [address] Rome Fuller MD Follow Up (Returning Provider Call) 03/24/2024 7:40 AM CDT Office Visit [facility] [address] [place] [address] Shahzad Griffith MD Musculoskeletal Problem (Consult bilateral knee pain right is worse per Dr. Fuller discuss Coolief) 03/24/2024 Telephone [facility] [address] [place] [address] Rome Fuller MD Pharmacist Medication Management (tiotropium (spiriva)/mometasone-f ormoterol (DULERA) /FYI alternates treligy elyipa or brectri aerofphere) 03/24/2024 Travel 03/17/2024 Refill [facility] [address] [place] [address] Tia Lynne PA Refill Request (Hydrocodone-acetamino phen) 03/03/2024 7:45 AM CDT Office Visit [facility] at [facility] [address] [place] [address] Ramos Bear MD 03/03/2024 Lab Requisition [facility] [phone] Ramos Bear MD 03/03/2024 Lab Requisition [facility] [phone] Ramos Bear MD 03/02/2024 Travel 02/22/2024 9:05 AM CDT Preop Visit [facility] [address] [place] [address] Rome Fuller MD Preoperative Exam (DOS: 03/03/2024/Colonoscopy and EGD/[facility]/Dr Bear) 02/22/2024 Travel from Last 3 Months Immunizations Name Administration Dates Next Due AMB INFLUENZA IIV3 (AGE 65+ YRS) PF (Flu Clinic Only) 09/20/2017 AMB Influenza, IIV3 (Age >=3 years)(Flu Clinic Only) 08/14/2012,10/16/2008 Amb Influenza, Inact (High-d ose) (Flu Clinic Only) 08/21/2014 COVID-19 Vaccine Spikevax (M oderna 50mcg/0.5mL) 12YO+ 6037-2633 Formula PF 02/28/2024,09/17/2023 COVID-19 vaccine (Pfizer-Bio NTech [...] Sign Reading Time Taken Comments Blood Pressure 149/74 05/15/2024 11:16 AM CDT BP med taken about 10am Pulse 60 05/15/2024 11:16 AM CDT Temperature 36.1 ??C (97 ??F) 03/24/2024 7:4 8 AM CDT Respiratory Rate 24 03/22/2018 6:08 PM CDT Oxygen Saturation 100% 05/15/2024 11: 14 AM CDT Inhaled Oxygen Concentration - - Weight 69.3 kg (152 lb 12.8 oz) 05/15/2024 11:14 AM CDT Height 162.6 cm (5' 4) 11/05/2023 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 Body Mass Index 26.23 11/05/2023 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 Plan of Treatment Upcoming Encounters Date Type Department Care Team (Late st Contact Info) Description 05/20/2024 2:00 PM CDT Procedure Only [facility] at [facility] [address] [place] [address] Shahzad Griffith MD [address] [place] [address] Arrived Health Maintenance Due Date Last Done Comments Zoster (shingles) series for age 50+ (1 of 2) 1959 COVID-19 vaccine series (2022-24 season) 2024 02/28/2024, 09/17/2023, 11/03/2022, Additional history [...] Procedure Name Priority Date/Time Associated Diagnosis Comments XR HIP 1 VIEW W PELVIS RIGHT Routine 12:09 PM CDT Right buttock pain SCAN-OPERATIVE/PROCEDURE REPORT 05/13/2024 12:00 AM CDT LAB TRACKING EVENT Routine 03/03/2024 9:15 AM CDT LAB TRACKING EVENT Routine 03/03/2024 8:50 AM CDT PATH TISSUE EXAM Routine 03/03/2024 8:50 AM CDT ESOPHAGOGASTRODUODENOSCOPY Routine 03/03 12:00 AM CDT Iron deficiency anemia, unspecified iron deficiency anemia type COLONOSCOPY SCREENING Routine 03/03/2024 12:00 AM CDT Iron deficiency anemia, unspecified iron deficiency anemia type CREATININE Routine 02/22/2024 10:09 AM CDT Preoperative examination POTASSIUM Routine 02/22/2024 10:09 AM CDT Preoperative examination from Last 3 Months Results * XR HIP 1 VIEW W PELVIS RIGHT (05/15/2024 12:09 PM CDT) Anatomical Region Laterality Modality HIPS, HIPR, Pelvis Computed Radi ography 05/18/2024 6:50 AM CDT Narrative 05/18/2024 6:50 AM CDT For Patients: ??As a result of the Cures Act, medical imaging exams and procedure reports are released immediately into your electronic medical record. ??You may view this report before your referring provider. ??If you have questions, please contact your health care provider. Indication: Right buttock pain. Technique: One-view pelvis. One-view right hip Comparison: CT abdomen pelvis 01/02/2023. Findings: Bones: Alignment is normal. No fractures. No suspicious osseous lesions. Joint spaces: Minimal bilateral hip arthrosis. Advanced lower lumbar spondylosis. Soft tissues: Large colonic and rectal stool burden. Impression: 1. Minimal bilateral hip arthrosis. 2. Advanced lower lumbar spondylosis. 3. Large colonic and rectal stool burden. Dictated by Abad Wray MD @ 05/18/2024 6:50:16 AM (Electronically Signed) Procedure Note Abad Wray MD - 05/18/2024 For Patients: As a result of the Cures Act, medical imagingexams and procedure reports are released immediately into your electronicmedical record. You may view this report before your referring provider.If you have questions, please contact your health care provider. Indication: Right buttock pain. Technique: One-view pelvis. One-view right hip Comparison: CT abdomen pelvis 01/02/2023. Findings: Bones: Alignment is normal. No fractures. No suspicious osseous lesions. Joint spaces: Minimal bilateral hip arthrosis. Advanced lower lumbarspondylosis. Soft tissues: Large colonic and rectal stool burden. Impression: 1. Minimal bilateral hip arthrosis. 2. Advanced lower lumbar spondylosis. 3. Large colonic and rectal stool burden. Dictated by Abad Wray MD @ 05/18/2024 6:50:16 AM (Electronically Signed) Rome Fuller MD GENERAL IMAGING * SCAN-OPERATIVE/PROCEDURE REPORT (05/13/2024 12:00 AM CDT) Scanner OTHER * LAB TRACKING EVENT (03/03/2024 9:15 AM CDT) Only the most recent of2 resultswithin the time period is included. Other (Other) Client Collect / Unknown 03/03/2024 9:15 AM CDT 03/03/2024 9:48 PM CDT Ramos Bear MD LAB BILL ONLY [facility] [address] [place] [address], * PATH TISSUE EXAM (03/03/2024 8:50 AM CDT) Case Report Pathology Report ?Case: [id number] ? Authorizing Provider: ??Ramos Bear MD ?? Collected: ? 03/03/2024 0850 ? Ordering Location: ? [facility] ?Received: ?03/04/2024 0848 ? Pathologist: ? Erik Watson, ? MD ? Specimens: ?? A) - Duodenum ? B) - ? C) - Distal Esophagus Biopsy ? D) - Descending Colon Biopsy ? 03/05/2024 9:36 AM CDT [facility] Final Diagnosis A) DUODENUM, BIOPSY: 1. [...] DESCENDING, POLYPECTOMY: Hyperplastic polyp 03/05/2024 9:36 AM CDT [facility] Clinical Information Iron deficiency anemia. Upper endoscopy is grossly normal. Colonoscopy demonstrates a 4 mm descending colon polyp. 03/05/2024 9:36 AM CDT [facility] Gross Description A) Received in [...] 03/04/2024 8:58 AM 03/05/2024 9:36 AM CDT [facility] Microscopic Description The final diagnosis is based on microscopic examination of appropriate sections of all specimens. 03/05/2024 9:36 AM CDT [facility] Additional Information [facility] - [address], [place] [address] 03/05/2024 9:36 AM CDT [facility] Other (Duodenum) 03/03/2024 8:50 AM CDT 03/04/2024 8:48 AM CDT Specimen (specimen) 03/03/2024 8:50 AM CDT 03/04/2024 8:48 AM CDT Specimen (specimen) (Distal Esophagus Biopsy) 03/03/2024 8:50 AM CDT 03/04/2024 8:48 AM CDT Specimen (specimen) (Descending Colon Biopsy) 03/03/2024 8:50 AM CDT 03/04/2024 8:48 AM CDT Ramos Bear MD PATHOLOGY/CYTOLOG Y Performing Organization Address [facility] Co de Phone Number [facility] [address] [address], [place] * ESOPHAGOGASTRODUODENOSCOPY (03/03/2024 12:00 AM CDT) Ramos Bear MD GI PROCEDURE ORD * COLONOSCOPY SCREENING (03/03/2024 12:00 AM CDT) Ramos Bear MD GI PROCEDURE ORD * POTASSIUM (02/22/2024 10:09 AM CDT) POTASSIUM 4.6 3.5 - 5.1 mmol/L 02/22/2024 5:16 PM CDT [facility] Blood BLOOD SPECIMEN / Unknown Venipuncture / Unknown 02/22/2024 10:09 AM CDT 02/22/2024 10:11 AM CDT Rome Fuller MD CHEMISTRY Performing Organization Address [facility] Co de Phone Number [facility] [address] [address], * (ABNORMAL) CREATININE (02/22/2024 10:09 AM CDT) eGFR 70(L) >90 mL/min/1.7 3m2 02/22/2024 5:16 PM CDT [facility] Comment:As of 2022, eG FR is calculated by the CKD-EPI creatinine equation without race adjustment. ??eGFR can be influenced by muscle mass, exercise, and diet. ??The reported eGFR is an estimation only and is only applicable if the renal function is stable. CREATININE 1.05 0.70 - 1.20 mg/dL 02/22/2024 5:16 PM CDT [facility] Blood BLOOD SPECIMEN / Unknown Venipuncture / Unknown 02/22/2024 10:09 AM CDT 02/22/2024 10:11 AM CDT Rome Fuller MD CHEMISTRY [facility] [address] [place] [address], from Last 3 Months Additional Health Concerns Infection Onset Date Last Indicated [id number] Comment:Order contact precautions. Order consult to Infection Prevention to determine if patient may be removed from precautions. +MDRO <12/07/21, urine, ESBL E.coli> 12/07/2021 12/07/2021 Care Teams Biology Manager Relationship Specialty Start Date End Date Rome Fuller MD [address] [place] [phone] PCP - General Family Practice 08/23/23 Abdulkadir Sandoval MBBS [address] [address] Oncology Oncology 11/05/23 Jamar Moss MD [address] [address] Urology Surgery - Urology 11/05/23
== END 2024-05-20 13:05 | disposition home or self-care (01) ==
LOC: INJ CL 13:05
PROVIDERS: PCP Family Medicine; Visit Provider Family Medicine
DX: M17.11 Unilateral primary osteoarthritis, right knee (principal); M25.561 Pain in right knee; G89.29 Other chronic pain
CPT/HCPCS: 64624; J2250; J3010

== ENCOUNTER 2025-07-14 20:11 | Emergency (ER) | payer MEDICARE, OTHER, SELFPAY ==
--- OUTSIDE RECORDS SUMMARY | 2025-07-14 20:14 | XMS_ITS ---
Author Name Interface, [id number] lity Address [address] [place] [address] [facility] Oncology Address [facility] [address] [address] Allergies and Adverse Reactions Plan Reason for Visit Encounters Immunizations Diagnostic Results Medications Problems Vital Signs
--- OUTSIDE RECORDS SUMMARY | 2025-07-14 20:14 | XMS_ITS | CCD ---
Author Name Interface, [id number] lity Address [address] [place] [address] [address] [place] [address] [facility] Oncology Address [address] [facility] [address] [place] [address] Care Team Providers Care Kennel Manager Dog Track Name Role Phone Abdulkadir Campo Unavailable Unavailable Allergies and Adverse Reactions Care Plan Reason for Visit Encounters Functional Status Diagnostic Results Medications Problems Procedures Social History Visits Vital Signs Notes Section
--- OUTSIDE RECORDS SUMMARY | 2025-07-14 20:14 | XMS_ITS | Clinical Summary ---
Author Organization [email or web address] [facility] Address [facility] [place] [address] Care Team Providers Care Vehicle Inspector Name Role Phone Rome Fuller MD Primary Care Provider [phone] Abdulkadir Sandoval Unavailable [phone] Jamar Moss MD Unavailable [phone] Rene Valdivia MD Unavailable [phone] Allergies Active Allergy Reactions Criticality Noted Date Comments Bupropion 03/14/2010 Patient felt hot spots on back area, painful. Penicillins *Unknown 05/24/2007 Medications multivitamin (MVI) tablet Take 1 tablet by mouth once daily. 0 11/17/20 14 Active famotidine (PEPCID) 20 mg tablet Take 20 mg by mouth once daily. 09/19/20 23 Active iron,carbonyl-vit tang C (Vitron-C) 65 mg iron- 125 mg Delayed-Release tablet Take 1 Tablet by mouth two times daily with meals. 11/22/19 24 Active diphenhydrAMINE-a cetaminophen 25-500 mg (Tylenol PM Extra Strength) 25-500 mg tablet Take 1 Tablet by mouth at bedtime if needed. Max acetaminophen dose: 4000mg in 24 hrs. Active glucosam/chond-ms m1/C/sloan/bor (GLUCOSAMINE-EVI D-MSM COMPLEX ORAL) Take 1 Capsule by mouth once daily. Active cetirizine (ZYRTEC) 10 mg tabletIndications :Allergy, sequela Take 1 Tablet (10 mg) by mouth once daily. 09/06/20 24 Active tamsulosin 0.4 mg capsuleIndication s:Benign prostatic hyperplasia with incomplete bladder emptying Take 1 Capsule (0.4 mg) by mouth once daily after a meal. 90 Capsule 2 11/21/19 25 Active acetaminophen (TYLENOL EXTRA STRGTH) 500 mg tabletIndications :S/P total knee arthroplasty, left Take 2 Tablets (1,000 mg) by mouth every 6 hours. Max acetaminophen dose: 4000mg in 24 hrs. If taking Tylenol PM at night, use that instead of night time dose of regular Tylenol. 200 Tablet 5 11:00 AM HAIR OR BEAUTY SALON MANAGER 12/06/19 25 Active sennosides-docusa te (SENOKOT S) (8.6-50 mg) tabletIndications :S/P total knee arthroplasty, left Take 1-3 Tablets by mouth two times daily as needed 100 Tablet 5 11:00 AM HAIR OR BEAUTY SALON MANAGER 12/06/19 25 Active aspirin (ECOTRIN) 81 mg enteric coated tabletIndications :S/P total knee arthroplasty, left Take 1 Tablet (81 mg) by mouth two times daily with meals. Take for 6 weeks following surgery, do not stop taking until 6 weeks after surgery. 84 Tablet 5 11:00 AM HAIR OR BEAUTY SALON MANAGER 12/06/19 25 Active traZODone (DESYREL) 150 mg tabletIndications :Insomnia, idiopathic Take 1 Tablet (150 mg) by mouth at bedtime. For sleep. 90 Tablet 3 12/16/19 25 Active atorvastatin (LIPITOR) 20 mg tabletIndications :Cerebrovascular accident (CVA) of left thalamus (HC) Take 1 Tablet (20 mg) by mouth at bedtime. For Cholesterol. 90 Tablet 3 01/18/20 25 Active losartan 25 mg tabletIndications :Nonrheumatic mitral valve regurgitation Take 1 Tablet (25 mg) by mouth once daily. 90 Tablet 3 04/24/20 25 Active fluticasone (50 mcg per actuation) nasal solution (FLONASE)Indicati ons:Seasonal allergic rhinitis, unspecified trigger Inhale 1 [place] in both nostrils once daily. 48 g 2 04/29/20 25 Active fluticasone fur-umeclidinium- vilanterol (TRELEGY ELLIPTA) 200-62.5-25 mcg inhalerIndication s:Chronic obstructive pulmonary disease, unspecified COPD type (HC) Inhale 1 Puff by mouth once daily. Rinse mouth after use 180 Each 05/29/20 25 Active albuterol HFA (PRO-AIR; VENTOLIN; PROVENTIL) 90 mcg/actuation inhalerIndication s:Chronic obstructive pulmonary disease, unspecified COPD type (HC) Inhale 1-2 Puffs by mouth every 4 hours if needed for Shortness of Breath 1st choice. 1 Each 2 05/29/20 25 Active polyethylene glycoL (MIRALAX) 17 gram/scoop powderIndications :Constipation, unspecified constipation type Mix 1 scoop (17 g) in liquid then take by mouth once daily if needed for Constipation. Hold if loose stools. 510 g 1 07/05/20 25 Active polyethylene glycoL 17 gram/scoop powderIndications :Constipation, unspecified constipation type Mix 1 scoop (17 g) in liquid then take by mouth once daily if needed for Constipation. 510 g 02/14/20 25 025 Discontin ued(Reord er (E-cancel not sent)) polyethylene glycoL (MIRALAX) 17 gram/scoop powderIndications :Constipation, unspecified constipation type Mix 1 scoop (17 g) in liquid then take by mouth once daily if needed for Constipation. 510 g 07/01/20 25 025 Discontin ued(Reord er (E-cancel not sent)) Active Problems Problem Noted Date Diagnosed Date Unilateral primary osteoarthritis, left knee Acquired iron deficiency anemia due to decreased absorption 10/23/2024 HTN (hypertension) 10/23/2024 Status post total knee replacement, right 2023 S/P total knee arthroplasty, right 09/05/2408/19 Primary osteoarthritis of right knee 09/05/2024 Bilateral primary osteoarthritis of knee 024 Overview (05/25/2024): May 2024: Right knee coolief procedure by Dr. Griffith. Malignant neoplasm metastatic to lung 12/08/2023 Anemia 12/07/2023 Systolic murmur 09/19/2023 Overview (09/19/2023): Aug 2023: 1st heard. Malignant neoplasm metastatic to bone 01/31/2022 Primary malignant neoplasm of prostate Cerebrovascular accident (CVA) 03/05/2020 Overview (03/05/2020): February 2020. Plavix 75 mg daily for one month. Aspirin 81 mg lifelong. Adenomatous colon polyp 01/29/2018 Overview (03/05/2024): Colonoscopy 01/2018 polyp, repeat in 5 years Colonoscopy 02/2024 hyperplastic polyp, no follow up needed COPD (chronic obstructive pulmonary disease) Overview (03/25/2024): November 2023: dulera increased to 200mg dose twice daily. February 2024: Due to cost Trelligy ellipta prescription sent and Removing spiriva and dulera. Cost was only reason for change. Anxiety state, unspecified 02/28/2011 Osteoporosis, unspecified 03/14/2010 Shingles 03/11/2010 Gastroesophageal reflux disease 11/02/2009 Overview (03/05/2024): EGD 10/2009 reflux, repeat EGD in 5 years EGD 11/2014 no montoya's, no follow up needed EGD 02/2024 normal, no follow up needed PLMD (periodic limb movement disorder) 9 Central Sleep Apnea -summary note 01/04/2009/0 03/2009 Bilateral primary osteoarthritis of knee 007 Overview (09/05/2023): Synvisc right knee not helpful 2010. Right. [...] bilateral knee cortisone injections by Dr. Fuller. Persistent insomnia 10/30/2006 Resolved Problems Problem Noted Date Diagnosed Date Resolved Date Closed fracture of carpal bone 10/23/2024 10/23/2024 Closed fracture of right clavicle 10/23/2024 10/23/2024 Mild recurrent major depression 02/14/2010 02/28/2011 Unspecified sleep apnea 10/30/200603/20 Encounters Date Type Department Care Team Description 06/29/2025 Refill [facility] [address] [place] [address] Rome Fuller MD Refill Request (Polyethylene glycol) 06/02/2025 1:30 PM CDT Office Visit [facility] [address] [facility] [address] [place] [address] Judy Joyner PA Surgical Followup 06/02/2025 Travel 05/31/2025 Travel 05/29/2025 10:45 AM CDT Office Visit [facility] [address] [place] [address] Rome Fuller MD Medicare ANNUAL (subsequent) Visit (Age 84) 05/29/2025 Travel 05/26/[address] [facility] [address] [facility] [address] [place] [address] Judy Joyner PA Refill Request (PANTOPRAZOLE SODIUM 40 MG TBEC) 05/24/2025 Travel 05/11/2025 1:00 PM CDT Ancillary Procedure [facility] [address] [place] [address] 05/11/2025 Travel 04/27/2025 Refill [facility] [address] [place] [address] Rome Fuller MD Refill Request (Fluticasone) 04/24/2025 Refill [facility] [address] [facility] [phone] Rudolph Martinez MD Refill Request (Losartan) from Last 3 Months Immunizations Immunization Administration Dates Next Due AMB INFLUENZA IIV3 (AGE 65+ YRS) PF (Flu Clinic Only) 09/20/2017 AMB Influenza, IIV3 (Age >=3 years)(Flu Clinic Only) 08/14/2012,10/16/2008 Amb Influenza, Inact (High-d ose) (Flu Clinic Only) 08/21/2014 COVID-19 VACCINE SPIKEVAX (M ODERNA 50MCG/0.5ML) 12YO+ PFS 09/11/2024,02/28/2024,09/17/2023 COVID-19 vaccine (VivaBioCell-Bio NTech 30mcg/0.3mL) 12YO+ BIVALENT PF, MDV 11/03/2022 COVID-19 vaccine (Pfizer-Bio NTech 30mcg/0.3mL) 12YO+ MERARI-SUCROSE PF, MDV 04/12/2022 COVID-19 vaccine (VivaBioCell-Bio NTech 30mcg/0.3mL) PF, MDV 09/23/2021,01/25/2021,01/04/2021 Influenza A (H1N1), Inactivated 11/17/2009 Influenza, High-dose Inactivated 08/17/2016,08/19,08/21/2014 Influenza, IIV3 (Age 6-35 mos) 08/25/2011,2009 Influenza, IIV3 (Age >=3 years) 09/02/20 13,08/14/2012,08/25/2011,10/16,09/19/2007,09/23/2005,09/03/2004 ,09/30/2003 Influenza, Inactivated AIIV4 (Age 65+ Years) Preserv Free 09/17/2023,09/11/2022,08/15/2021,08/14 Influenza, Inactivated IIV3 (Age 65+ Years) Preserv Free 09/11/2024,08/21/2019,07/16/2018,09/20 Pneumococcal Poly,23-Valent (Pneumovax) 08/10/2005 Pneumococcal conj 13-Valent [...] Years Used Date Smoking Tobacco: Former Cigarettes 1 10 Q uit: 05/24/1992 Smokeless Tobacco: Never Tobacco Cessation:Counseling Given: Yes Comments:quit in his 20s Alcohol Use Standard Drinks/Week Comments No 0 (1 standard drink = 0.6 oz pur e alcohol) PHQ-2 Answer Date Recorded PHQ-2 TOTAL SCORE 0 05/29/2025 Social Connections Answer Date Recorded Do you often feel lonely or isolated from those around you? 0 10/19/2024 Financial Resource Strain Answer Date R ecorded Difficulty of Paying Living Expenses 3 10/19/2024 Difficulty of Paying Living Expenses Not on file 10/19/2024 Food Insecurity Answer Date Recorded Do you worry your food will run out before you are able to buy more? 1 10/19/2024 Transportation Needs Answer Date Record ed Does lack of transportation keep you from medica l appointments? 1 10/19/2024 Does lack of transportation keep you from work, meetings or getting things that you need? 1 10/19/2024 Housing Stability Answer Date Recorded What is your housing situation today? 1 10/19/2024 Utilities Answer Date Recorded Do you have trouble paying f or utilities (for example, heat, electricity, water, phone)? 1 10/19/2024 Sex and Gender Information Value Date Recorded Sex Assigned at Not on file Legal Sex Male 6:02 AM HAIR OR BEAUTY SALON MANAGER Gender Identity Not on file Sexual Orientation Not on file Obstetrics History Last Filed Vital Signs Vital Sign Reading Time Taken Comments Blood Pressure 109/67 05/29/2025 10:51 AM CDT Pulse 64 05/29/2025 10:51 AM CDT Temperature 36.7 C (98.1 F) 12/06/2024 8:00 AM HAIR OR BEAUTY SALON MANAGER Respiratory Rate 18 12/06/2024 8:00 AM HAIR OR BEAUTY SALON MANAGER Oxygen Saturation 100% 05/29/2025 10:51 AM CDT Inhaled Oxygen Concentration - - Weight 72.8 kg (160 lb 9.6 oz) 05/29/2025 10:51 AM CDT Height 163.2 cm (5' 4.25) 05/29/2025 10:51 AM C DT Body Mass Index 27.35 05/29/2025 10:51 AM CDT Plan of Treatment Upcoming Encounters Date Type Department Care Team (Late st Contact Info) Description 12/01/2025 10:00 AM HAIR OR BEAUTY SALON MANAGER Office Visit [facility] [address] [place] [address] [place] [address] [place] [address] Health Maintenance Due Date Last Done Comments Zoster (shingles) series for age 50+ (1 of 2) 1959 COVID-19 vaccine series (9 - Pfizer risk season) 2025 09/11/2024, 02/28/2024, 09/17/2023, Additional history exists Influenza Vaccine (#1) 2025 , 09/17/2023, 09/11/2022, Additional history exists BMI (ht and wt on same day) for age 18+ 05/29/2026 05/29/2025, 11/21/2024, 11/05/2023, Additional history exists Depression screening for age 12+ 05/29/2026 05/29/2025, 11/21/2024, 11/09/2023, Additional history exists Medicare Wellness for age 65+ 05/30/2026 05/29/2025, 11/05/2023, 11/03/2022, Additional history exists Tetanus booster 10/11/2029 10/11/2019, 11/19, 05/19/2002 Pneumococcal series for age 50+ Completed 09/03/2015, 08/10/2005 RSV vaccine for adults or Completed 11/16/2023 Hepatitis B series for 19+ Aged Out N o longer eligible based on patient's age to complete this topic Medical Devices Implanted Type Area Gourmet Coffee Attendant Device Identifier Shelf Expiration Date Model / Serial / Lot Cmnt Bone 40g Simplex P Non Atb Mv - [id number] Implanted:Qty: 1 on 09/05/2024 by Satish Canela DO at [facility] Right: Knee [employer] 09/18/2026 6191-1-010 / / [id number] Cmnt Bone 40g Simplex P Non Atb Mv - [id number] Implanted:Qty: 1 on 09/05/2024 by Satish Canela DO at [facility] Right: Knee [employer] 07/19/2026 6191-1-010 / / [id number] Baseplate Tib Sz 5 Triathlon Pe - [id number] Implanted:Qty: 1 on 09/05/2024 by Satish Canela DO at [facility] Right: Knee [employer] 03/03/2029 5521-B-500 / / [id number] Fem Rt Sz 5 Triathlon Cruc Retco Cr - [id number] Implanted:Qty: 1 on 09/05/2024 by Satish Canela DO at [facility] Right: Knee [employer] 01/02/2029 5510-F-502 / / [id number] Insert Tib Sz 5 9mm Knee X3 Condylar Stabilizing Triathlon - [id number] Implanted:Qty: 1 on 09/05/2024 by Satish Canela DO at [facility] Right: Knee [employer] 04/16/2029 5531-G-509 -E / / [id number] Implant Patellar [id number] Knee X3 Asymmetric Triathlon - [id number] Implanted:Qty: 1 on 09/05/2024 by Satish Canela DO at [facility] Right: Knee [employer] 12/19/2028 5551-G-381 -E / / [id number] Baseplate Tib Sz 6 Triathlon Pe - [id number] Implanted:Qty: 1 on 12/05/2024 by Satish Canela DO at [facility] Left: Knee [employer] 03/13/2029 5521-B-600 / / [id number] Fem Lt Sz 6 Triathlon Cruc Retco Cr - [id number] Implanted:Qty: 1 on 12/05/2024 by Satish Canela DO at [facility] Left: Knee [employer] 11/19/2028 5510-F-601 / / [id number] Implant Patellar [id number] Knee X3 Asymmetric Triathlon - [id number] Implanted:Qty: 1 on 12/05/2024 by Satish Canela DO at [facility] Left: Knee [employer] 2028 5551-G-381 -E / / [id number] Insert Tib Sz 6 9mm Knee X3 Condylar Stabilizing Triathlon - [id number] Implanted:Qty: 1 on 12/05/2024 by Satish Canela DO at [facility] Left: Knee [employer] 06/25/2029 5531-G-609 -E / / [id number] Cmnt Bone Simplex Hv Us 1 Pack - [id number] Implanted:Qty: 2 on 12/05/2024 by Satish Canela DO at [facility] Left: Knee [employer] 03/18/2026 6194-1-001 / / [id number] Explanted Type Area Gourmet Coffee Attendant Device Identifier Shelf Expiration Date Model / Serial / Lot Pin Bone Fix [id number] - [id number] Explanted:Qty: 1 on 09/05/2024 at [facility] Right: Knee [employer] [id number] / / Inactive See # [id number] Pin Bone Fix 3.7oeg081up - [id number] Explanted:Qty: 1 on 09/05/2024 at [facility] Right: Knee [employer] [id number] / / Pin Bone Fix [id number] Strl - [id number] Explanted:Qty: 1 on 12/05/2024 by Satish Canela DO at [facility] Left: Azooo [id number] / / Pin Bone Fix [id number] - [id number] Explanted:Qty: 1 on 12/05/2024 by Satish Canela DO at [facility] Left: Knee [employer] [id number] / / Procedures Procedure Name Priority Date/Time Associated Diagnosis Comments ECHO TTE COMPLETE WO CONTRAST Routine 05/11/2025 1:23 PM CDT Nonrheumatic mitral valve regurgitation from Last 3 Months Results * ECHO TTE COMPLETE WO CONTRAST (05/11/2025 1:23 PM CDT) AORTIC VALVE MEAN PG 13 mmHg EJECTION FRACTION 72 % PEAK TR VELOCITY 3.2 m/s LVEDD 4.2 cm EJECTION FRACTION 70 - 75% Anatomical Region Laterality Modality Ultrasound 05/11/2025 1:05 PM CDT Narrative 05/11/2025 2:18 PM CDT ECHOCARDIOGRAM ISABEL CHAN : 1940 84 years Study Date: 05/11/2025 1:05:14 PM Gender: M BP: 110/56 mmHg Height: 168.00 cm BSA: 1.83 m Weight: 73.00 kg Tech: [facility] Referring MD: RENE VALDIVIA Site: [facility] Reading Location: Mobile-OP Patient Location: Outpatient. Procedure: 2D, Color Doppler and Spectral Doppler. Indication for study: Nonrheumatic mitral valve regurgitation Cardiac Rhythm: Regular.Study quality: Good. Final Impressions: 1. Normal LV size, mildly increased wall thickness, normal function with an estimated EF of 70 - 75%. 2. Right ventricular cavity size is normal, global systolic RV function is normal. 3. Moderately enlarged left atrium. 4. The mitral valve is sclerotic with probably moderate mitral regurgitation, eccentric anteromedially directed jet. No indirect markers of severe (e velocity 1m/s, no PV systolic reversal). 5. Moderately increased estimated pulmonary pressures by tricuspid regurgitation velocity and right atrial pressure (41 mmHg plus RAP). Comparison Compared to prior exam of 10/31/23: The PA pressure is higher. The degree of MR appears similar. Chamber Sizes and Function Normal left ventricular size, mildly increased wall thickness, normal global systolic function with an estimated EF of 70 - 75%. No resting regional wall motion abnormality visualized. Left atrial size is moderately enlarged. Left atrial pressure is normal. Right ventricular cavity size is normal, global systolic RV function is normal. RV wall thickness is normal. The right atrium is normal. Right atrial volume index is 13 ml/m . Right atrial area is 13 cm . The pulmonary artery is of normal size and origin. The sinus of Valsalva is normal sized. The ascending aorta is normal sized. Valves, RV Pressures and Diastolic Function The aortic valve is trileaflet and sclerotic, no stenosis and no regurgitation. The mitral valve is sclerotic, moderate mitral regurgitation, eccentric jet directed anteromedially suggests posterior mitral valve leaflet dysfunction. Normal diastolic function for age. The tricuspid valve is normal in structure, mild tricuspid regurgitation. The tricuspid regurgitant velocity is 3.2 m/s, the estimated right ventricular systolic pressure is 41 mmHg plus right atrial pressure. There is moderately increased estimated pulmonary pressure by tricuspid regurgitation velocity and right atrial pressure. The pulmonic valve is normal. No pulmonary regurgitation. Masses, Effusion, Shunts There is no pericardial effusion. The inferior vena cava is normal sized, respiratory size variation greater than 50%. No left to right shunting was detected by limited color flow Doppler interrogation of the interatrial septum. MEASUREMENTS AND CALCULATIONS 2-D Measurements and LV Function: LVID (d) 4.2 cm LV FS% (2D) 42 % LVID (s) 2.5 cm LVOT diameter 2.2 cm IVS (d) 1.3 cm HR 63 bpm LVPW (d) 1.3 cm LA Vol index 37 ml/m2 Ao Sinus 3.6 cm RA Vol index 13 ml/m2 Ao Sinus ULN 4.1 cm * RA area 13 cm Asc Ao 3.8 cm RV Basal Diam 3.5 cm Asc Ao ULN 4.3 cm * LA 3.9 cm * Input age outside of range, reported values correspond to Age = 78 Diastology: Mitral Tissue Doppler Pulmonary veins E Peak 1.0 m/s e', Septum 0.08 m/s Pulm s 61.4 cm/s A Peak 1.2 m/s e', Lateral 0.08 m/s Pulm d 43.2 cm/s E/A 0.9 E/e' Average 12.86 Pulm s/d ratio 1.42 DT 246 msec Aortic Valve: Vmax 2.3 m/s SHIRAZ (V) 2.31 cm VTI 0.56 m SHIRAZ (I) 1.86 cm LVOT V max 1.4 m/s Max PG 20 mmHg LVOT VTI 0.27 m Mean PG 13 mmHg SV 104 ml Dim Index 0.49 SV index 57 ml/m CO 6.5 l/min CI 3.6 l/min/m Mitral Valve: MVA 3.1 cm MV P 1/2 71 msec MV Mean G 3 mmHg MV VTI 0.44 m Tricuspid Valve and estimated PA pressures: TR Vmax 3.2 m/s TAPSE 2.4 cm TR maxG 41 mmHg Pulmonic Valve: PV AT 135 msec . This study was interpreted by an [facility] accredited facility. Final Procedure Note Fabio See MD - 05/11/2025 ECHOCARDIOGRAM ISABEL CHAN : 1940 84 years Study Date: 05/11/2025 1:05:14 PM Gender: M BP: 110/56 mmHg Height: 168.00 cm BSA: 1.83 m Weight: 73.00 kg Tech: [facility] Referring MD: RENE VALDIVIA Site: [facility] Reading Location: Mobile-OP Patient Location: Outpatient. Procedure: 2D, Color Doppler and Spectral Doppler. Indication for study: Nonrheumatic mitral valve regurgitation Cardiac Rhythm: Regular.Study quality: Good. Final Impressions: 1. Normal LV size, mildly increased wall thickness, normal function withan estimated EF of 70 - 75%. 2. Right ventricular cavity size is normal, global systolic RV functionis normal. 3. Moderately enlarged left atrium. 4. The mitral valve is sclerotic with probably moderate mitralregurgitation, eccentric anteromedially directed jet. No indirect markersof severe (e velocity 1m/s, no PV systolic reversal). 5. Moderately increased estimated pulmonary pressures by tricuspidregurgitation velocity and right atrial pressure (41 mmHg plus RAP). Comparison Compared to prior exam of 10/31/23: The PA pressure is higher. The degree of MR appears similar. Chamber Sizes and Function Normal left ventricular size, mildly increased wall thickness, normalglobal systolic function with an estimated EF of 70 - 75%. No restingregional wall motion abnormality visualized. Left atrial size ismoderately enlarged. Left atrial pressure is normal. Right ventricularcavity size is normal, global systolic RV function is normal. RV wallthickness is normal. The right atrium is normal. Right atrial volume indexis 13 ml/m . Right atrial area is 13 cm . The pulmonary artery is ofnormal size and origin. The sinus of Valsalva is normal sized. Theascending aorta is normal sized. Valves, RV Pressures and Diastolic Function The aortic valve is trileaflet and sclerotic, no stenosis and noregurgitation. The mitral valve is sclerotic, moderate mitralregurgitation, eccentric jet directed anteromedially suggests posteriormitral valve leaflet dysfunction. Normal diastolic function for age. Thetricuspid valve is normal in structure, mild tricuspid regurgitation. Thetricuspid regurgitant velocity is 3.2 m/s, the estimated right ventricularsystolic pressure is 41 mmHg plus right atrial pressure. There ismoderately increased estimated pulmonary pressure by tricuspidregurgitation velocity and right atrial pressure. The pulmonic valve isnormal. No pulmonary regurgitation. Masses, Effusion, Shunts There is no pericardial effusion. The inferior vena cava is normal sized,respiratory size variation greater than 50%. No left to right shunting wasdetected by limited color flow Doppler interrogation of the interatrialseptum. MEASUREMENTS AND CALCULATIONS 2-D Measurements and LV Function: LVID (d) 4.2 cm LV FS% (2D) 42% LVID (s) 2.5 cm LVOT diameter2.2 cm IVS (d) 1.3 cm HR 63bpm LVPW (d) 1.3 cm LA Vol index 37ml/m2 Ao Sinus 3.6 cm RA Vol index 13ml/m2 Ao Sinus ULN 4.1 cm * RA area 13cm Asc Ao 3.8 cm RV Basal Diam3.5 cm Asc Ao ULN 4.3 cm * LA 3.9 cm * Input age outside of range, reported values correspond to Age = 78 Diastology: Mitral Tissue Doppler Pulmonary veins E Peak 1.0 m/s e', Septum 0.08 m/s Pulm s 61.4 cm/s A Peak 1.2 m/s e', Lateral 0.08 m/s Pulm d 43.2 cm/s E/A 0.9 E/e' Average 12.86 Pulm s/d ratio 1.42 DT 246 msec Aortic Valve: Vmax 2.3 m/s SHIRAZ (V) 2.31 cm VTI 0.56 m SHIRAZ (I) 1.86 cm LVOT V max 1.4 m/s Max PG 20 mmHg LVOT VTI 0.27 m Mean PG 13 mmHg SV 104 ml Dim Index 0.49 SV index 57 ml/m CO 6.5 l/min CI 3.6 l/min/m Mitral Valve: MVA 3.1 cm MV P 1/2 71 msec MV Mean G 3 mmHg MV VTI 0.44 m Tricuspid Valve and estimated PA pressures: TR Vmax 3.2 m/s TAPSE 2.4 cm TR maxG 41 mmHg Pulmonic Valve: PV AT 135 msec . This study was interpreted by an [facility] accredited facility. Final us Rene Valdivia MD ECHO ORD Final Result from Last 3 Months Additional Health Concerns Infection Onset Date Last Indicated MDRO Clearance Comment:Infection Control Note: Hx of ESBL, surveillance criteria met, no need for further testing or isolation precautions. Do not delete or resolve the Infection Flag. +ESBL E. coli 12/07/21 urine 09/04/2024 09/04/2024 Insurance [employer] ONLY MEDICARE PART A HB ONLY MEDICARE PART B HB ONLY MEDICA PRIME SOLUTION HB Advance Directives * Full Code (Latest Code Status on File) Date Activated Date Inactivated Comments 12/05/2024 10:07 AM 12/06/2024 1:55 PM per surgica l consent Question Answer Comments Code Status Discussion: Reviewed Preferences * Full Code Date Activated Date Inactivated Comments 12/05/2024 6:01 AM 12/05/2024 10:07 AM per surgica l consent Question Answer Comments Code Status Discussion: Reviewed Preferences * Full Code Date Activated Date Inactivated Comments 09/05/2024 5:54 AM 09/06/2024 6:44 PM Question Answer Comments Code Status Discussion: Unable to Assess Preferences, Provider to review later Care Teams Vehicle Inspector Relationship Specialty Start Date End Date Rome Fuller [place] [address] PCP - General Family Practice 08/23/23 Abdulkadir Sandoval MBBS [address] [address] Oncology Oncology 11/05/23 Jamar Moss MD [address] [address] Urology Surgery - Urology 11/05/23 Rene Valdivia MD [address] [place] [id number] Cardiology Cardiovascular Disease 05/29/25
[2025-07-14 20:26] VITALS: BP 150/82; PULSE 84; RESP 16; TEMP 36.6; O2SAT 97; BMI 25.7
--- NOTE | 2025-07-14 21:22 | CRLHL7_ITS ---
For Patients: As a result of the Cures Act, medical imaging exams and procedure reports are released immediately into your electronic medical record. You may view this report before your referring provider. If you have questions, please contact your health care provider. INDICATION: Trauma, fall. Back pain. TECHNIQUE: CT thoracic spine without contrast. COMPARISON: None. FINDINGS: Vertebrae: Alignment is normal. Nondisplaced fractures of the right T6-T10 transverse processes. Discs and facet joints: There are diffuse degenerative changes in the disc spaces and facet joints. Extraspinal findings: Trace right pleural effusion. Bibasilar atelectasis. Cardiomegaly. Coronary artery and mitral annular calcifications. Nondisplaced fractures of the right 5th through 9th ribs at the costovertebral junction. Additional nondisplaced fracture of the posterior right 8th and 9th ribs. Old bilateral rib fractures. IMPRESSION: 1. Acute nondisplaced right T6-T10 transverse process fractures. 2. Acute nondisplaced right 5th through 9th rib costovertebral junction fractures. 3. Acute nondisplaced posterior right 8th and 9th rib fractures. 4. Trace right pleural effusion. Please note that all CT scans at this facility use dose modulation, iterative reconstruction, and/or weight-based dosing when appropriate to reduce radiation dose to as low as reasonably achievable. Dictated by Michael Hernandez MD @ 07/14/2025 10:47:04 PM (Electronically Signed)
--- NOTE | 2025-07-14 21:22 | CRLHL7_ITS ---
For Patients: As a result of the Century Cures Act, medical imaging exams and procedure reports are released immediately into your electronic medical record. You may view this report before your referring provider. If you have questions, please contact your health care provider. INDICATION: Trauma, fall. TECHNIQUE: CT head without contrast. COMPARISON: MRI brain 02/27/2020. FINDINGS: CSF spaces: Proportionate prominence of the ventricles and sulci, reflecting mild to moderate generalized cerebral volume loss. Brain parenchyma: The graham-white differentiation is maintained. Patchy white matter low attenuation changes, nonspecific but likely reflecting chronic small vessel ischemic disease. No evidence of intracranial hemorrhage, extra-axial collection, or midline shift. Atherosclerotic calcifications of the cavernous carotids and carotid siphons. Skull base and calvarium: The visualized paranasal sinuses and mastoid air cells demonstrate no acute or significant findings. The visualized orbits are grossly unremarkable. No skull fractures. Left TMJ arthrosis. IMPRESSION: No acute intracranial abnormality. Please note that all CT scans at this facility use dose modulation, iterative reconstruction, and/or weight-based dosing when appropriate to reduce radiation dose to as low as reasonably achievable. Dictated by Michael Hernandez MD @ 07/14/2025 10:37:11 PM (Electronically Signed)
--- NOTE | 2025-07-14 21:22 | CRLHL7_ITS ---
For Patients: As a result of the Cures Act, medical imaging exams and procedure reports are released immediately into your electronic medical record. You may view this report before your referring provider. If you have questions, please contact your health care provider. INDICATION: Trauma, fall. TECHNIQUE: CT cervical spine without contrast. COMPARISON: None. FINDINGS: Vertebrae: Alignment is normal. There are no fractures or suspicious bony lesions. Discs and facet joints: There are diffuse degenerative changes in the disc spaces and facet joints. C3-C7 laminectomies. Extraspinal findings: Paraspinous soft tissues are unremarkable. IMPRESSION: 1. No acute fracture or traumatic subluxation of the cervical spine. 2. Multilevel degenerative spondylosis. Please note that all CT scans at this facility use dose modulation, iterative reconstruction, and/or weight-based dosing when appropriate to reduce radiation dose to as low as reasonably achievable. Dictated by Michael Hernandez MD @ 07/14/2025 10:39:16 PM (Electronically Signed)
--- NOTE | 2025-07-14 21:22 | CRLHL7_ITS ---
For Patients: As a result of the Century Cures Act, medical imaging exams and procedure reports are released immediately into your electronic medical record. You may view this report before your referring provider. If you have questions, please contact your health care provider. INDICATION: Trauma, fall. Back pain. TECHNIQUE: CT lumbar spine without contrast. COMPARISON: None. FINDINGS: Vertebrae: Alignment is normal. Comminuted obliquely oriented fracture of the L2 vertebral body. Nondisplaced fracture plane extends to the left L1-L2 bridging osteophyte. Diffuse osteopenia. Discs and facet joints: Disc spaces and facets are within normal limits. Extraspinal findings: Severe scattered atherosclerotic calcifications. Hyperdense left renal cyst. IMPRESSION: Comminuted obliquely oriented L2 vertebral body fracture. Please note that all CT scans at this facility use dose modulation, iterative reconstruction, and/or weight-based dosing when appropriate to reduce radiation dose to as low as reasonably achievable. Dictated by Michael Hernandez MD @ 07/14/2025 10:54:46 PM (Electronically Signed)
--- OUTSIDE RECORDS SUMMARY | 2025-07-14 21:31 | XMS_ITS | CCD ---
Author Name Interface, [id number] lity Address [address] [place] [address] [address] [place] [address] [facility] Oncology Address [address] [facility] [address] [place] [address] Care Team Providers Care Bike Technician Name Role Phone Abdulkadir Campo Unavailable Unavailable Allergies and Adverse Reactions Care Plan Reason for Visit Encounters Functional Status Diagnostic Results Medications Problems Procedures Social History Visits Vital Signs Notes Section
--- OUTSIDE RECORDS SUMMARY | 2025-07-14 21:31 | XMS_ITS | CCD ---
Author Name Interface, [id number] lity Address [address] [place] [address] [address] [place] [address] [facility] Oncology Address [address] [facility] [address] [place] [address] Care Team Providers Care Bottom Saw Operator Name Role Phone Abdulkadir Campo Unavailable Unavailable Allergies and Adverse Reactions Care Plan Reason for Visit Encounters Functional Status Diagnostic Results Medications Problems Procedures Social History Visits Vital Signs Notes Section
--- OUTSIDE RECORDS SUMMARY | 2025-07-14 21:31 | XMS_ITS ---
Author Name Interface, [id number] lity Address [address] [place] [address] [facility] Oncology Address [facility] [address] Allergies and Adverse Reactions Plan Reason for Visit Encounters Immunizations Diagnostic Results Medications Problems Vital Signs
--- OUTSIDE RECORDS SUMMARY | 2025-07-14 21:32 | XMS_ITS ---
Author Name Interface, [id number] lity Address [address] [facility] [address] [address] [facility] Address [address] [facility] [address] [address] Allergies and Adverse Reactions Medication/Group Name Reaction Severity Date Penicillins 04/03/2025 Wellbutrin 04/03/2025 Plan Date Type Value 08/04/2025 APPOINTMENT OV 20 MIN 07/28/2025 APPOINTMENT LAB 10 MIN 04/03/2025 APPOINTMENT OV 20 MIN 03/27/2025 APPOINTMENT LAB 15 MIN 03/27/2025 APPOINTMENT LAB 15 MIN 11/20/2024 APPOINTMENT INJECTION 15 MIN 11/20/2024 APPOINTMENT OV 20 MIN 11/17/2024 APPOINTMENT LAB 10 MIN 08/12/2024 APPOINTMENT INJECTION 15 MIN 08/12/2024 APPOINTMENT OV 20 MIN 08/05/2024 APPOINTMENT LAB 15 MIN 05/20/2024 APPOINTMENT INJECTION 15 MIN 05/20/2024 APPOINTMENT OV 20 MIN 05/16/2024 APPOINTMENT LAB 15 MIN 02/01/2024 APPOINTMENT INJECTION 15 MIN 02/01/2024 APPOINTMENT OV 20 MIN 01/29/2024 APPOINTMENT LAB 10 MIN 11/08/2023 APPOINTMENT LAB 15 MIN 11/08/2023 APPOINTMENT LAB 10 MIN 11/08/2023 APPOINTMENT INJECTION 15 MIN 11/08/2023 APPOINTMENT OV 20 MIN 11/02/2023 APPOINTMENT LAB 15 MIN 08/03/2023 APPOINTMENT INJECTION 15 MIN 08/03/2023 APPOINTMENT LAB 15 MIN 08/03/2023 APPOINTMENT OV 20 MIN 05/04/2023 APPOINTMENT LAB 15 MIN 05/04/2023 APPOINTMENT INJECTION 15 MIN 05/04/2023 APPOINTMENT OV 20 MIN 01/18/2023 APPOINTMENT INJECTION 15 MIN 01/18/2023 APPOINTMENT OV 20 MIN 01/18/2023 APPOINTMENT LAB 10 MIN 10/24/2022 APPOINTMENT INJECTION 15 MIN 10/24/2022 APPOINTMENT OV 20 MIN 10/24/2022 APPOINTMENT LAB 15 MIN 10/17/2022 APPOINTMENT INJECTION 15 MIN 10/17/2022 APPOINTMENT OV 20 MIN 10/17/2022 APPOINTMENT LAB 15 MIN 08/07/2022 APPOINTMENT CHART CHECK 5 MD N 07/25/2022 APPOINTMENT INJECTION 15 MIN 07/25/2022 APPOINTMENT LAB 15 MIN 07/25/2022 APPOINTMENT OV 20 MIN 05/02/2022 APPOINTMENT INJECTION 15 MIN 05/02/2022 APPOINTMENT LAB 15 MIN 05/02/2022 APPOINTMENT OV 20 MIN 03/31/2022 APPOINTMENT LAB 15 MIN 03/31/2022 APPOINTMENT OV 20 MIN 02/07/2022 APPOINTMENT INJECTION 15 MIN 02/07/2022 APPOINTMENT LAB 15 MIN 02/07/2022 APPOINTMENT OV 20 MIN 01/06/2022 APPOINTMENT LAB 15 MIN 01/06/2022 APPOINTMENT OV 20 MIN 01/05/2022 APPOINTMENT LAB 15 MIN 01/05/2022 APPOINTMENT OV 20 MIN 12/06/2021 APPOINTMENT LAB 5 MIN 12/06/2021 APPOINTMENT OV 20 MIN 11/04/2021 APPOINTMENT CHART CHECK 5 MD N 11/01/2021 APPOINTMENT INJECTION 15 MIN 10/28/2021 APPOINTMENT INJECTION 15 MIN 10/28/2021 APPOINTMENT OV 20 MIN 10/28/2021 APPOINTMENT LAB 5 MIN 09/30/2021 APPOINTMENT RC - 158 ARM REC HECK - 158 ARM RECHECK 09/30/2021 APPOINTMENT RC - 158 ARM REC HECK - 158 ARM RECHECK 09/02/2021 APPOINTMENT RC - 158 ARM REC HECK - 158 ARM RECHECK 09/02/2021 APPOINTMENT RC - 158 ARM REC HECK - 158 ARM RECHECK 08/24/2021 APPOINTMENT CHTCK - 158 CT A ND DEXA [facility] 08/18/2021 APPOINTMENT CHTCK - 44 REVIE W SCANS DONE AT [facility] 08/17/[address] - [address] AB/PELVIS - [facility]: 12:45 08/17/2021 APPOINTMENT DEXA - 44 DEXA C T AB/PELVIS - [facility] CKIN: 12:45 08/02/2021 APPOINTMENT RCINJ - 158 ARM RC CARLINE - CT DONE PRIOR 08/02/2021 APPOINTMENT RCINJ - 158 ARM RC ELIGARD - CT DONE PRIOR 08/02/2021 APPOINTMENT RCINJ - 158 ARM RC ELIGARD - CT DONE PRIOR 07/28/[address] - 158 CHEST C T W/ CONTRAST - CK[facility] 8:45AM NPO 2 HOURS @ N.F 06/02/2021 APPOINTMENT RC - 158 ARM RC - 158 ARM RC 06/02/2021 APPOINTMENT RC - 158 ARM RC - 158 ARM RC 04/29/2021 APPOINTMENT INJ - 158 ELIGAR D NEW - 158 ZANDRAGARGena NEW 04/28/2021 APPOINTMENT TMSV - 158 VSEE - 158 VSEE 06/02/2021 LABORDER PSA diagnostic p destiny 06/02/2021 LABORDER CBC w/ auto diff 06/02/2021 LABORDER CMP 07/22/[address] chest w/ IV c ontrast 08/02/2021 LABORDER PSA diagnostic p destiny 08/02/2021 LABORDER CMP 08/02/2021 LABORDER CBC w/ auto diff 08/17/2021 LABORDER Bone scan, total body 08/17/[address] abdomen/pelvi s w/ contrast 09/02/2021 LABORDER PSA diagnostic p destiny 09/02/2021 LABORDER CBC w/ auto diff 09/02/2021 LABORDER CMP 09/30/2021 LABORDER PSA diagnostic p destiny 09/30/2021 LABORDER CBC w/ auto diff 09/30/2021 LABORDER CMP 10/02/2021 LABORDER PSA diagnostic p destiny 10/02/2021 LABORDER CBC w/ auto diff 10/02/2021 LABORDER CMP 12/06/2021 LABORDER CBC w/ auto diff 12/06/2021 LABORDER PSA diagnostic p destiny 12/06/2021 LABORDER CMP 12/06/2021 LABORDER Urinalysis with Reflex Panel 01/06/2022 LABORDER CBC w/ auto diff 01/06/2022 LABORDER PSA diagnostic p destiny 01/06/2022 LABORDER CMP 02/07/2022 LABORDER CMP 02/07/2022 LABORDER PSA diagnostic p destiny 02/07/2022 LABORDER CBC w/ auto diff 03/07/[address] chest/abdomen /pelvis w/ IV contrast 03/07/2022 LABORDER Bone scan, total body 03/31/2022 LABORDER CBC w/ auto diff 03/31/2022 LABORDER CMP 05/02/2022 LABORDER CMP 05/02/2022 LABORDER PSA diagnostic p destiny 05/02/2022 LABORDER CBC w/ auto diff 07/25/2022 LABORDER PSA diagnostic p destiny 07/25/2022 LABORDER CMP 07/25/2022 LABORDER CBC w/ auto diff 10/24/2022 LABORDER CBC w/ auto diff 10/24/2022 LABORDER CMP 10/24/2022 LABORDER PSA diagnostic p destiny 01/08/2023 LABORDER Bone scan, total body 01/08/[address] chest/abdomen /pelvis w/ IV contrast 01/18/2023 LABORDER CBC w/ auto diff 01/18/2023 LABORDER PSA diagnostic p destiny 01/18/2023 LABORDER CMP 05/04/2023 LABORDER CMP 05/04/2023 LABORDER CBC w/ auto diff 05/04/2023 LABORDER PSA diagnostic p destiny 08/03/2023 LABORDER CMP 08/03/2023 LABORDER CBC w/ auto diff 08/03/2023 LABORDER PSA diagnostic p destiny 11/02/2023 LABORDER CMP 11/02/2023 LABORDER PSA diagnostic p destiny 11/02/2023 LABORDER CBC w/ auto diff 11/08/2023 LABORDER Vitamin B12 pane l 11/08/2023 LABORDER Ferritin panel 11/08/2023 LABORDER Iron profile 11/08/2023 LABORDER Immunofixation, serum w/ quant IgG/A/M panel 11/08/2023 LABORDER Folate panel 11/08/2023 LABORDER Path peripheral blood slide review panel 01/29/2024 LABORDER CMP 01/29/2024 LABORDER PSA diagnostic p destiny 01/29/2024 LABORDER CBC w/ auto diff 05/16/2024 LABORDER PSA diagnostic p destiny 05/16/2024 LABORDER CMP 05/16/2024 LABORDER Ferritin panel 05/16/2024 LABORDER CBC w/ auto diff 08/05/2024 LABORDER PSA diagnostic p destiny 08/05/2024 LABORDER CMP 08/05/2024 LABORDER Ferritin panel 08/05/2024 LABORDER CBC w/ auto diff 11/17/2024 LABORDER PSA diagnostic p destiny 11/17/2024 LABORDER CMP 11/17/2024 LABORDER CBC w/ auto diff 03/27/2025 LABORDER PSA diagnostic p destiny 03/27/2025 LABORDER Ferritin panel 03/27/2025 LABORDER CBC w/ auto diff 03/27/2025 LABORDER CMP 07/28/2025 LABORDER Ferritin panel 07/28/2025 LABORDER CMP 07/28/2025 LABORDER CBC w/ auto diff 07/28/2025 LABORDER PSA diagnostic p destiny Reason for Visit OV 20 MIN Encounters Date Name 04/28/2021 Acquired iron defici ency anemia due to decreased absorption 04/28/2021 Anemia 04/28/2021 Counseling 04/28/2021 Edema of lower extre mity (finding) 04/28/2021 GERD 04/28/2021 Insomnia, persistent 04/28/2021 Primary malignant ne oplasm of prostate (disorder) 04/28/2021 Secondary malignant neoplasm of bone (disorder) 04/28/2021 Secondary malignant neoplasm of lung (disorder) 04/28/2021 Urine nitrite positi ve Immunizations Date Name Route Dose Instructions Refusal Reason Stat us Covid-19 vaccine (Pfizer) Patient declined/rejected Not Administered Flu vaccine - Adult Patient declined/rejected Not Administered Flu vaccine - Adult Comp leted Covid-19 vaccine (Moderna) Completed Covid-19 vaccine (Pfizer) Completed Covid-19 vaccine (Pfizer) Flu vaccine - Adult Comp leted Diagnostic Results Date Type Test Units Lower Limit Upper Limit Result Flag Comments Status Ordered By Specimen Source Lab Address 06/02 CBC w/ auto diff WBC K/uL 3.0 8.9 5.2 FINAL [facility] [place], [address] [place] [phone] 0 Phone: () - 06/02 CBC w/ auto diff HGB g/dL 12.5 16.6 13.6 FINAL [facility] [place], [address] [place] [phone] 0 Phone: () - 06/02 CBC w/ auto diff PLT K/uL 113.0 364.0 218 FINAL [facility] [place], [address] [place] [phone] 0 Phone: () - 06/02 CBC w/ auto diff Cayet[place] # (ANC) K/uL 1.6 6.6 2.7 FINAL [facility] [place], [address] [place] [phone] 0 Phone: () - 06/02 CBC w/ auto diff Cayet[place] % % 43.0 74.0 50.9 FINAL [facility] [place], [address] [place] [phone] 0 Phone: () - 06/02 CBC w/ auto diff IG % % 0.0 0.5 0.2 FINAL [facility] [place], [address] [place] [phone] 0 Phone: () - 06/02 CBC w/ auto diff IG # K/uL 0.0 0.03 0.01 FINAL [facility] [place], [address] [place] [phone] 0 Phone: () - 06/02 CBC w/ auto diff LY % % 14.0 41.0 31.9 FINAL [facility] [place], [address] [place] [phone] 0 Phone: () - 06/02 CBC w/ auto diff MO % % 6.0 15.0 8.2 FINAL [facility] [place], [address] [place] [phone] 0 Phone: () - 06/02 CBC w/ auto diff EO % % 0.0 7.0 8.2 High FINAL [facility] [place], [address] [place] [phone] 0 Phone: () - 06/02 CBC w/ auto diff BA % % 0.0 2.0 0.6 FINAL [facility] [place], [address] [place] [phone] 0 Phone: () - 06/02 CBC w/ auto diff LY # K/uL 0.4 3.6 1.7 FINAL [facility] [place], [address] [place] [phone] 0 Phone: () - 06/02 CBC w/ auto diff MO # K/uL 0.2 1.3 0.4 FINAL [facility] [place], [address] [place] [phone] 0 Phone: () - 06/02 CBC w/ auto diff EO # K/uL 0.0 0.6 0.4 FINAL [facility] [place], [address] [place] [phone] 0 Phone: () - 06/02 CBC w/ auto diff BA # K/uL 0.0 0.2 0.0 FINAL [facility] [place], [address] [place] [phone] 0 Phone: () - 06/02 CBC w/ auto diff NRBC % #/100W BC 0.0 0.2 0.0 FINAL [facility] [place], [address] [place] [phone] 0 Phone: () - 06/02 CBC w/ auto diff RBC M/uL 4.2 5.6 4.49 FINAL [facility] [place], [address] [place] [phone] 0 Phone: () - 06/02 CBC w/ auto diff HCT % 39.0 49.0 40.8 FINAL [facility] Ja[facility] [place], [address] [facility] [address] [place] [phone] 0 Phone: () - 06/02 CBC w/ auto diff MCV fL 80.0 104.0 90.9 FINAL [facility] [place], [address] [facility] [address] [place] [phone] 0 Phone: () - 06/02 CBC w/ auto diff MCH pg 26.0 35.0 30.3 FINAL [facility] [place], [address] [address] [facility] [address] [place] [phone] 0 Phone: () - 06/02 CBC w/ auto diff MCHC g/dL 30.0 35.0 33.3 FINAL [facility] [place], [address] [facility] [address] [place] [phone] 0 Phone: () - 06/02 CBC w/ auto diff MPV fL 9.5 13.4 10.5 FINAL [facility] [place], [address] [facility] [address] [place] [phone] 0 Phone: () - 06/02 CBC w/ auto diff RDW % 11.3 15.6 13.90 FINAL [facility] [place], [address] [facility] [address] [place] [phone] 0 Phone: () - 06/02 CMP Album in g/dL 3.2 5.2 4.2 FINAL [facility] Jaime [facility], [address] [facility] [address] [place] [phone] 0 Phone: () - 06/02 CMP Alkal ine phosp hatas e U/L 46.0 116.0 270 High FINAL [facility] Jaime [facility], [address] [facility] [address] [place] [phone] 0 Phone: () - 06/02 CMP ALT/S GPT U/L 7.0 40.0 24 FINAL [place] [address] [phone] 0 Phone: () - 06/02 CMP AST/S GOT U/L 13.0 40.0 39 FINAL [place] [address] [phone] 0 Phone: () - 06/02 CMP BUN mg/dL 9.0 23.0 21 FINAL [place] [address] [phone] 0 Phone: () - 06/02 CMP Calci um mg/dL 8.7 10.4 9.5 FINAL [place] [address] [phone] 0 Phone: () - 06/02 CMP Chlor narinder mmol/L 96.0 114.0 111 FINAL [place] [address] [phone] 0 Phone: () - 06/02 CMP CO2 mmol/L 20.0 31.0 26 FINAL [place] [address] [phone] 0 Phone: () - 06/02 CMP Creat inine mg/dL 0.5 1.2 0.95 FINAL [place] [address] [phone] 0 Phone: () - 06/02 CMP GFR estim ate ml/min /1.73m ^2 73.9 GFR is calculate d using the CKD-EPI equation. FINAL [place] [address] [phone] 0 Phone: () - 06/02 CMP Gluco se mg/dL 73.0 126.0 77 FINAL [place] [address] [place] [phone] 0 Phone: () - 06/02 CMP Potas sium mmol/L 3.5 5.1 3.9 FINAL [facility], [address] [facility] [address] [facility] [phone] 0 Phone: () - 06/02 CMP Sodiu m mmol/L 136.0 145.0 143 FINAL [facility] [address] [phone] 0 Phone: () - 06/02 CMP Bilir ubin, total mg/dL 0.3 1.2 0.4 FINAL [place] [address] [phone] 0 Phone: () - 06/02 CMP Total prote in g/dL 5.7 8.2 6.9 FINAL [place] [address] [phone] 0 Phone: () - 06/02 PSA diagn ostic panel PSA ng/ml 0.0 4.0 8.40 High Test performed at [facility] on a XGIMI Immunoass ay Analyzer that uses an immunoenz ymometric sandwich assay for analysis. Patient testing should not be performed using multiple methodolo mela due to analytica l variation seen between test methodunruly plaza. FINAL [place] [address] [phone] 0 Phone: () - [facility] d 08/02 CMP Album in g/dL 3.2 5.2 4.2 FINAL [place] [address] [address] [facility] [address] [phone] 0 Phone: () - 08/02 CMP Alkal ine phosp hatas e U/L 46.0 116.0 131 High FINAL [facility] [address] [phone] 0 Phone: () - 08/02 CMP ALT/S GPT U/L 7.0 40.0 22 FINAL [facility], [address] [facility] [address] [facility] [phone] 0 Phone: () - 08/02 CMP AST/S GOT U/L 13.0 40.0 31 FINAL [facility] [address] [facility] [address] [phone] 0 Phone: () - 08/02 CMP BUN mg/dL 9.0 23.0 20 FINAL [place] [address] [address] [facility] [address] [phone] 0 Phone: () - 08/02 CMP Calci um mg/dL 8.7 10.4 9.9 FINAL [place] [address] [address] [facility] [address] [phone] 0 Phone: () - 08/02 CMP Chlor narinder mmol/L 96.0 114.0 108 FINAL [place] [address] [address] [facility] [address] [phone] 0 Phone: () - 08/02 CMP CO2 mmol/L 20.0 31.0 25 The expected total allowable error for CO2 is 5.6%. We have seen up to 10% differenc e in values if reported at the end of the 96 hour stability window. Please consider the clinical significa nce of a 2.0-2.5 mmol/L lower reported CO2 value if reported at the end of the 96 hour stability window. FINAL [facility], [facility] [address] [facility] [address] [place] [phone] 0 Phone: () - 08/02 CMP Creat inine mg/dL 0.5 1.2 0.98 FINAL [place] [address] [address] [facility] [address] [phone] 0 Phone: () - 08/02 CMP GFR estim ate ml/min /1.73m ^2 71.1 GFR is calculate d using the CKD-EPI equation. FINAL [place] [address] [facility] [address] [facility] [phone] 0 Phone: () - 08/02 CMP Gluco se mg/dL 73.0 126.0 83 FINAL [facility] [address] [facility] [address] [facility] [phone] 0 Phone: () - 08/02 CMP Potas sium mmol/L 3.5 5.1 4.2 FINAL [facility] [address] [facility] [address] [facility] [phone] 0 Phone: () - 08/02 CMP Sodiu m mmol/L 136.0 145.0 142 FINAL [place] [address] [phone] 0 Phone: () - 08/02 CMP Bilir ubin, total mg/dL 0.3 1.2 0.5 FINAL [place] [address] [phone] 0 Phone: () - 08/02 CMP Total prote in g/dL 5.7 8.2 7.0 FINAL [place] [address] [phone] 0 Phone: () - 08/02 PSA diagn ostic panel PSA ng/ml 0.0 4.0 1.10 Test performed at [facility] on a tenXer 2000 Immunoass ay Analyzer that uses an immunoenz ymometric sandwich assay for analysis. Patient testing should not be performed using multiple methodunruly plaza due to analytica l variation seen between test methodunruly plaza. FINAL [facility], [facility] [address] [facility] [address] [phone] 0 Phone: () - 08/02 CBC w/ auto diff WBC K/uL 3.[address] [facility], [address] [facility] [phone] 0 Phone: () - 08/02 CBC w/ auto diff HGB g/dL 12.5 16.6 13.1 FINAL [facility] [place], [address] [place] [phone] 0 Phone: () - 08/02 CBC w/ auto diff PLT K/uL 113.0 364.0 237 FINAL [facility] [place], [address] [place] [phone] 0 Phone: () - 08/02 CBC w/ auto diff [place] # (ANC) K/uL 1.6 6.6 2.9 FINAL [facility] [place], [address] [place] [id number] 0 Phone: () - 08/02 CBC w/ auto diff [place] % % 43.0 74.0 49.2 FINAL [facility] [place], [address] [place] [phone] 0 Phone: () - 08/02 CBC w/ auto diff IG % % 0.0 0.5 0.2 FINAL [facility] [place], [address] [place] [phone] 0 Phone: () - 08/02 CBC w/ auto diff IG # K/uL 0.0 0.03 0.01 FINAL [facility] [place], [address] [place] [id number] 0 Phone: () - 08/02 CBC w/ auto diff LY % % 14.0 41.0 33.2 FINAL [facility] [place], [address] [place] [phone] 0 Phone: () - 08/02 CBC w/ auto diff MO % % 6.0 15.0 9.0 FINAL [facility] [place], [address] [place] [phone] 0 Phone: () - 08/02 CBC w/ auto diff EO % % 0.0 7.0 7.5 High FINAL [facility] [place], [address] [place] [phone] 0 Phone: () - 08/02 CBC w/ auto diff BA % % 0.0 2.0 0.9 FINAL [facility] [place], [address] [place] [phone] 0 Phone: () - 08/02 CBC w/ auto diff LY # K/uL 0.4 3.6 2.0 FINAL [facility] [place], [address] [place] [phone] 0 Phone: () - 08/02 CBC w/ auto diff MO # K/uL 0.2 1.3 0.5 FINAL [facility] [place], [address] [place] [id number] 0 Phone: () - 08/02 CBC w/ auto diff EO # K/uL 0.0 0.6 0.4 FINAL [facility] [place], [address] [place] [phone] 0 Phone: () - 08/02 CBC w/ auto diff BA # K/uL 0.0 0.2 0.1 FINAL [facility] [place], [address] [place] [phone] 0 Phone: () - 08/02 CBC w/ auto diff NRBC % #/100W BC 0.0 0.2 0.0 FINAL [facility] [place], [address] [place] [id number] 0 Phone: () - 08/02 CBC w/ auto diff RBC M/uL 4.2 5.6 4.28 FINAL [facility] [place], [address] [place] [phone] 0 Phone: () - 08/02 CBC w/ auto diff HCT % 39.0 49.0 39.1 FINAL [facility] [place], [address] [place] [phone] 0 Phone: () - 08/02 CBC w/ auto diff MCV fL 80.0 104.0 91.4 FINAL [facility] [place], [address] [place] [phone] 0 Phone: () - 08/02 CBC w/ auto diff MCH pg 26.0 35.0 30.6 FINAL [facility] [place], [address] [place] [phone] 0 Phone: () - 08/02 CBC w/ auto diff MCHC g/dL 30.0 35.0 33.5 FINAL [facility] [place], [address] [place] [phone] 0 Phone: () - 08/02 CBC w/ auto diff MPV fL 9.5 13.4 10.1 FINAL [facility] [place], [address] [place] [phone] 0 Phone: () - 08/02 CBC w/ auto diff RDW % 11.3 15.6 13.70 FINAL [facility] [place], [address] [place] [phone] 0 Phone: () - 09/02 CBC w/ auto diff WBC K/uL 3.0 8.9 5.0 FINAL [facility] [place], [address] [place] [phone] 0 Phone: () - 09/02 CBC w/ auto diff HGB g/dL 12.5 16.6 13.1 FINAL [facility] [place], [address] [place] [phone] 0 Phone: () - 09/02 CBC w/ auto diff PLT K/uL 113.0 364.0 209 FINAL [facility] [place], [address] [place] [phone] 0 Phone: () - 09/02 CBC w/ auto diff [place] # (ANC) K/uL 1.6 6.6 2.6 FINAL [facility] [place], [address] [place] [id number] 0 Phone: () - 09/02 CBC w/ auto diff [place] % % 43.0 74.0 53.1 FINAL [facility] [place], [address] [facility] [address] [place] [phone] 0 Phone: () - 09/02 CBC w/ auto diff IG % % 0.0 0.5 0.2 FINAL [facility] Ja[facility] [place], [address] [place] [phone] 0 Phone: () - 09/02 CBC w/ auto diff IG # K/uL 0.0 0.03 0.01 FINAL [facility] Ja[facility] [place], [address] [place] [phone] 0 Phone: () - 09/02 CBC w/ auto diff LY % % 14.0 41.0 33.6 FINAL [facility] [place], [address] [place] [phone] 0 Phone: () - 09/02 CBC w/ auto diff MO % % 6.0 15.0 8.7 FINAL [facility] [place], [address] [place] [id number] 0 Phone: () - 09/02 CBC w/ auto diff EO % % 0.0 7.0 3.8 FINAL [facility] [place], [address] [place] [phone] 0 Phone: () - 09/02 CBC w/ auto diff BA % % 0.0 2.0 0.6 FINAL [facility] [place], [address] [place] [phone] 0 Phone: () - 09/02 CBC w/ auto diff LY # K/uL 0.4 3.6 1.7 FINAL [facility] [place], [address] [place] [phone] 0 Phone: () - 09/02 CBC w/ auto diff MO # K/uL 0.2 1.3 0.4 FINAL [facility] [place], [address] [place] [phone] 0 Phone: () - 09/02 CBC w/ auto diff EO # K/uL 0.0 0.6 0.2 FINAL [facility] [place], [address] [place] [phone] 0 Phone: () - 09/02 CBC w/ auto diff BA # K/uL 0.0 0.2 0.0 FINAL [facility] [place], [address] [address] [place] [id number] 0 Phone: () - 09/02 CBC w/ auto diff NRBC % #/100W BC 0.0 0.2 0.0 FINAL [facility] Jaime [facility] - [place], [address] [place] [id number] 0 Phone: () - 09/02 CBC w/ auto diff RBC M/uL 4.2 5.6 4.26 FINAL Abd[facility]adirshell we[facility] [place], [address] [place] [address] d [address] [place] [id number] 0 Phone: () - 09/02 CBC w/ auto diff HCT % 39.0 49.0 39.6 FINAL [facility]adirshell ewinberg [facility] - [place], [address] [place] [address] [address] [place] [id number] 0 Phone: () - 09/02 CBC w/ auto diff MCV fL 80.0 104.0 93.0 FINAL [facility]adirshell we[facility] - [place], [address] [place] [address] [address] [place] [id number] 0 Phone: () - 09/02 CBC w/ auto diff MCH pg 26.0 35.0 30.8 FINAL [facility]adirshell we[facility] - [place], [address] [place] [address] [address] [place] [facility] [id number] 0 Phone: () - 09/02 CBC w/ auto diff MCHC g/dL 30.0 35.0 33.1 FINAL [facility] - [place], [address] [place] [address] [address] [place] [id number] 0 Phone: () - 09/02 CBC w/ auto diff MPV fL 9.5 13.4 10.2 FINAL [facility]adirshell we[facility] - [place], [address] [place] [address] [address] [place] [facility] [id number] 0 Phone: () - 09/02 CBC w/ auto diff RDW % 11.3 15.6 13.50 FINAL [facility]adirshell we[facility] - [place], [address] [place] [address] [address] [place] [id number] 0 Phone: () - 09/02 PSA diagn ostic panel PSA ng/ml 0.0 4.0 0.70 Test performed at [facility] on a XGIMI Immunoass ay Analyzer that uses an immunoenz ymometric sandwich assay for analysis. Patient testing should not be performed using multiple methodunruly plaza due to analytica l variation seen between test methodunruly plaza. FINAL [place] [address] [id number] 0 Phone: () - 09/02 CMP Album in g/dL 3.2 5.2 4.1 FINAL [place] [address] [id number] 0 Phone: () - 09/02 CMP Alkal ine phosp hatas e U/L 46.0 116.0 113 FINAL [place] [address] [id number] 0 Phone: () - 09/02 CMP ALT/S GPT U/L 7.0 40.0 23 FINAL [place] [address] [id number] 0 Phone: () - 09/02 CMP AST/S GOT U/L 13.0 40.0 35 FINAL [place] [address] [id number] 0 Phone: () - 09/02 CMP BUN mg/dL 9.0 23.0 20 FINAL [place] [address] [id number] 0 Phone: () - 09/02 CMP Calci um mg/dL 8.7 10.4 10.1 FINAL [place] [address] [id number] 0 Phone: () - 09/02 CMP Chlor narinder mmol/L 96.0 114.0 107 FINAL [place] [address] [id number] 0 Phone: () - 09/02 CMP CO2 mmol/L 20.0 31.0 25 The expected total allowable error for CO2 is 5.6%. We have seen up to 10% differenc e in values if reported at the end of the 96 hour stability window. Please consider the clinical significa nce of a 2.0-2.5 mmol/L lower reported CO2 value if reported at the end of the 96 hour stability window. FINAL [place] [address] [id number] 0 Phone: () - 09/02 CMP Creat inine mg/dL 0.5 1.2 1.00 [facility]AL [facility] [address] [id number] 0 Phone: () - 09/02 CMP GFR estim ate ml/min /1.73m ^2 69.4 GFR is calculate d using the CKD-EPI equation. FINAL [address] [id number] 0 Phone: () - 09/02 CMP Gluco se mg/dL 73.0 126.0 [address] [id number] 0 Phone: () - 09/02 CMP Potas sium mmol/L 3.5 5.1 3.8 FINAL [place] [address] [id number] 0 Phone: () - 09/02 CMP Sodiu m mmol/L 136.0 145.0 144 FINAL [place] [address] [id number] 0 Phone: () - 09/02 CMP Bilir ubin, total mg/dL 0.3 1.2 0.[address] [id number] 0 Phone: () - 09/02 CMP Total prote in g/dL 5.7 8.2 6.9 FINAL [place] [address] [id number] 0 Phone: () - 09/30 PSA diagn ostic panel PSA ng/ml 0.0 4.0 0.60 Test performed at [facility] on a tenXer 2000 Immunoass ay Analyzer that uses an immunoenz ymometric sandwich assay for analysis. Patient testing should not be performed using multiple malik plaza due to analytica l variation seen between test malik plaza. FINAL [place] [address] [id number] 0 Phone: () - 09/30 CMP Album in g/dL 3.2 5.2 4.2 FINAL [place] [address] [id number] 0 Phone: () - 09/30 CMP Alkal ine phosp hatas e U/L 46.0 116.0 108 FINAL [place] [address] [id number] 0 Phone: () - 09/30 CMP ALT/S GPT U/L 7.0 40.0 22 FINAL [place] [address] [id number] 0 Phone: () - 09/30 CMP AST/S GOT U/L 13.0 40.0 26 FINAL [place] [address] [id number] 0 Phone: () - 09/30 CMP BUN mg/dL 9.0 23.0 28 High FINAL [place] [address] [id number] 0 Phone: () - 09/30 CMP Calci um mg/dL 8.7 10.4 10.3 FINAL [place] [address] [id number] 0 Phone: () - 09/30 CMP Chlor narinder mmol/L 96.0 114.0 109 FINAL [place] [address] [address] [facility] [address] [id number] 0 Phone: () - 09/30 CMP CO2 mmol/L 20.0 31.0 27 The expected total allowable error for CO2 is 5.6%. We have seen up to 10% differenc e in values if reported at the end of the 96 hour stability window. Please consider the clinical significa nce of a 2.0-2.5 mmol/L lower reported CO2 value if reported at the end of the 96 hour stability window. [facility]AL [facility] [place] [address] [id number] 0 Phone: () - 09/30 CMP Creat inine mg/dL 0.5 1.2 0.96 FINAL [place] [address] [id number] 0 Phone: () - 09/30 CMP GFR estim ate ml/min /1.73m ^2 72.8 GFR is calculate d using the CKD-EPI equation. FINAL [place] [address] [id number] 0 Phone: () - 09/30 CMP Gluco se mg/dL 73.0 126.0 73 FINAL [place] [address] [id number] 0 Phone: () - 09/30 CMP Potas sium mmol/L 3.5 5.1 4.2 FINAL [place] [address] [id number] 0 Phone: () - 09/30 CMP Sodiu m mmol/L 136.0 145.0 146 High FINAL [place] [address] [id number] 0 Phone: () - 09/30 CMP Bilir ubin, total mg/dL 0.3 1.2 0.4 FINAL [place] [address] [id number] 0 Phone: () - 09/30 CMP Total prote in g/dL 5.7 8.2 6.8 FINAL Abdulkadir Jaime [facility] - [place], [address] [place] [id number] 0 Phone: () - 09/30 CBC w/ auto diff WBC K/uL 3.0 8.9 6.4 FINAL Abdulkadir Jaime [facility] [place], [address] [place] [id number] 0 Phone: () - 09/30 CBC w/ auto diff HGB g/dL 12.5 16.6 12.7 FINAL Abdulkadir Jaime [facility] [place], [address] [place] [id number] 0 Phone: () - 09/30 CBC w/ auto diff PLT K/uL 113.0 364.0 233 FINAL Abdulkadir Jaime [facility] [place], [address] [place] [id number] 0 Phone: () - 09/30 CBC w/ auto diff Cayetano # (ANC) K/uL 1.6 6.6 3.4 FINAL Abdulkadir Jaime [facility] - [place], [address] [place] [id number] 0 Phone: () - 09/30 CBC w/ auto diff Cayetano % % 43.0 74.0 53.1 FINAL Abdulkadir Jaime [facility] - [place], [address] [place] [id number] 0 Phone: () - 09/30 CBC w/ auto diff IG % % 0.0 0.5 0.3 FINAL Abdulkadir Jaime [facility] - [place], [address] [place] [id number] 0 Phone: () - 09/30 CBC w/ auto diff IG # K/uL 0.0 0.03 0.02 FINAL Abdulkadir Jaime [facility] - [place], [address] [place] [id number] 0 Phone: () - 09/30 CBC w/ auto diff LY % % 14.0 41.0 33.3 FINAL Abdulkadir Jaime [facility] [place], [address] [place] [id number] 0 Phone: () - 09/30 CBC w/ auto diff MO % % 6.0 15.0 8.9 FINAL Abdulkadir Jaime [facility] [place], [address] [place] [id number] 0 Phone: () - 09/30 CBC w/ auto diff EO % % 0.0 7.0 3.8 FINAL Abdulkadir Jaime [facility] - [place], [address] [place] [id number] 0 Phone: () - 09/30 CBC w/ auto diff BA % % 0.0 2.0 0.6 FINAL Abdulkadir Jaime [facility] - [place], [address] [place] [id number] 0 Phone: () - 09/30 CBC w/ auto diff LY # K/uL 0.4 3.6 2.1 FINAL Abdulkadir Jaime Campbell a [facility] - [place], [address] [place] [id number] 0 Phone: () - 09/30 CBC w/ auto diff MO # K/uL 0.2 1.3 0.6 FINAL Abdulkadir Jaime Campbell [facility] - [place], [address] [place] [id number] 0 Phone: () - 09/30 CBC w/ auto diff EO # K/uL 0.0 0.6 0.2 FINAL Abdulkadir Jaime [facility] - [place], [address] [place] [id number] 0 Phone: () - 09/30 CBC w/ auto diff BA # K/uL 0.0 0.2 0.0 FINAL Abdulkadir Jaime [facility] [place], [address] [place] [id number] 0 Phone: () - 09/30 CBC w/ auto diff NRBC % #/100W BC 0.0 0.2 0.0 FINAL Abdulkadir Jaime [facility] [place], [address] [place] [id number] 0 Phone: () - 09/30 CBC w/ auto diff RBC M/uL 4.2 5.6 4.10 Low FINAL Abdulkadir Jaime [facility] [place], [address] [place] [id number] 0 Phone: () - 09/30 CBC w/ auto diff HCT % 39.0 49.0 38.4 Low FINAL Abdulkadir Jaime [facility] - [place], [address] [place] [id number] 0 Phone: () - 09/30 CBC w/ auto diff MCV fL 80.0 104.0 93.7 FINAL Abdulkadir Jaime [facility] - [place], [address] [place] [id number] 0 Phone: () - 09/30 CBC w/ auto diff MCH pg 26.0 35.0 31.0 FINAL Abdulkadir Jaime [facility] - [place], [address] [place] [id number] 0 Phone: () - 09/30 CBC w/ auto diff MCHC g/dL 30.0 35.0 33.1 FINAL Abdulkadir Jaime [facility] [place], [address] [place] [id number] 0 Phone: () - 09/30 CBC w/ auto diff MPV fL 9.5 13.4 9.9 FINAL Abdulkadir Jaime [facility] - [place], [address] [place] [id number] 0 Phone: () - 09/30 CBC w/ auto diff RDW % 11.3 15.[address] [facility] Jaime weinberg [facility] angelic, [address] [facility] [id number] 0 Phone: () - 12/06 CMP Album in g/dL 3.2 5.[address] [facility], [address] [facility] [id number] 0 Phone: () - 12/06 CMP Alkal ine phosp hatas e U/L 46.0 116.0 103 FINAL [facility], [address] [facility] [address] [place] [address] [id number] 0 Phone: () - 12/06 CMP ALT/S GPT U/L 7.0 40.[address] [facility] [address] [facility] [address] [place] [address] [id number] 0 Phone: () - 12/06 CMP AST/S GOT U/L 13.0 40.0 [address] [facility], [address] [facility] [address] [place] [address] [id number] 0 Phone: () - 12/06 CMP BUN mg/dL 9.0 23.0 [address] [facility], [address] [facility] [address] [place] [address] [id number] 0 Phone: () - 12/06 CMP Calci um mg/dL 8.7 10.4 10.1 FINAL [facility], [address] [place] [address] [id number] 0 Phone: () - 12/06 CMP Chlor narinder mmol/L 96.0 114.0 108 FINAL [place] [address] [address] [facility] [address] [id number] 0 Phone: () - 12/06 CMP CO2 mmol/L 20.0 31.0 26 The expected total allowable error for CO2 is 5.6%. We have seen up to 10% differenc e in values if reported at the end of the 96 hour stability window. Please consider the clinical significa nce of a 2.0-2.5 mmol/L lower reported CO2 value if reported at the end of the 96 hour stability window. FINAL Abd[facility]irsavannah [facility], [facility] N [address] [id number] 0 Phone: () - 12/06 CMP Creat inine mg/dL 0.5 1.2 1.21 High FINAL [place] [address] [id number] 0 Phone: () - 12/06 CMP GFR estim ate ml/min /1.73m ^2 55.0 Low GFR is calculate d using the CKD-EPI equation. FINAL [place] [address] [id number] 0 Phone: () - 12/06 CMP Gluco se mg/dL 73.0 126.[address] [facility] [place] [address] [id number] 0 Phone: () - 12/06 CMP Potas sium mmol/L 3.5 5.1 4.2 FINAL [place] [address] [id number] 0 Phone: () - 12/06 CMP Sodiu m mmol/L 136.0 145.0 144 FINAL [place] [address] [id number] 0 Phone: () - 12/06 CMP Bilir ubin, total mg/dL 0.3 1.2 0.3 FINAL [place] [address] [id number] 0 Phone: () - 12/06 CMP Total prote in g/dL 5.7 8.2 6.5 FINAL [place] [address] [id number] 0 Phone: () - 12/06 CBC w/ auto diff WBC K/uL 3.0 8.9 5.2 FINAL Abd[facility]adir Jaime [facility] [place], [address] [facility] [address] [place] [id number] 0 Phone: () - 12/06 CBC w/ auto diff HGB g/dL 12.5 16.6 10.4 Low FINAL Abdulkadir Jaime [facility] [place], [address] [facility] [address] [place] [id number] 0 Phone: () - 12/06 CBC w/ auto diff PLT K/uL 113.0 364.0 248 FINAL [facility]ulkadir [facility] [place], [address] [place] [id number] 0 Phone: () - 12/06 CBC w/ auto diff Cayet[place] # (ANC) K/uL 1.6 6.6 2.6 FINAL Abdulkadir Jaime Campbell [facility] - [place], [address] [facility] [address] [place] [id number] 0 Phone: () - 12/06 CBC w/ auto diff Cayetano % % 43.0 74.0 50.8 FINAL Abdulkadir Jaime Campbell [facility] [place], [address] [facility] [address] [place] [id number] 0 Phone: () - 12/06 CBC w/ auto diff IG % % 0.0 0.5 0.2 FINAL Abdulkadir Jaime [facility] [place], [address] [place] [id number] 0 Phone: () - 12/06 CBC w/ auto diff IG # K/uL 0.0 0.03 0.01 FINAL Abdulkadir Jaime [facility] - [place], [address] [place] [id number] 0 Phone: () - 12/06 CBC w/ auto diff LY % % 14.0 41.0 35.7 FINAL Abdulkadir Jaime [facility] - [place], [address] [place] [id number] 0 Phone: () - 12/06 CBC w/ auto diff MO % % 6.0 15.0 10.6 FINAL Abdulkadir Jaime [facility] [place], [address] [place] [id number] 0 Phone: () - 12/06 CBC w/ auto diff EO % % 0.0 7.0 2.1 FINAL Abdulkadir Jaime [facility] [place], [address] [place] [id number] 0 Phone: () - 12/06 CBC w/ auto diff BA % % 0.0 2.0 0.6 FINAL Abdulkadir Jaime [facility] [place], [address] [place] [id number] 0 Phone: () - 12/06 CBC w/ auto diff LY # K/uL 0.4 3.6 1.9 FINAL Abdulkadir Jaime [facility] [place], [address] [place] [id number] 0 Phone: () - 12/06 CBC w/ auto diff MO # K/uL 0.2 1.3 0.6 FINAL Abdulkadir Jaime [facility] - [place], [address] [place] [id number] 0 Phone: () - 12/06 CBC w/ auto diff EO # K/uL 0.0 0.6 0.1 FINAL Abdulkadir Jaime [facility] [place], [address] [place] [id number] 0 Phone: () - 12/06 CBC w/ auto diff BA # K/uL 0.0 0.2 0.0 FINAL Abdulkadir Jaime [facility] [place], [address] [place] [id number] 0 Phone: () - 12/06 CBC w/ auto diff NRBC % #/100W BC 0.0 0.2 0.0 FINAL Abdulkadir Jaime [facility] [place], [address] [place] [id number] 0 Phone: () - 12/06 CBC w/ auto diff RBC M/uL 4.2 5.6 3.49 Low FINAL Abdulkadir Jaime [facility] [place], [address] [place] [id number] 0 Phone: () - 12/06 CBC w/ auto diff HCT % 39.0 49.0 31.6 Low FINAL Abdulkadir Jaime [facility] [place], [address] [place] [id number] 0 Phone: () - 12/06 CBC w/ auto diff MCV fL 80.0 104.0 90.5 FINAL Abdulkadir Jaime Campbell [facility] - [place], [address] [place] [id number] 0 Phone: () - 12/06 CBC w/ auto diff MCH pg 26.0 35.0 29.8 FINAL Abdulkadir Jaime [facility] - [place], [address] [place] [id number] 0 Phone: () - 12/06 CBC w/ auto diff MCHC g/dL 30.0 35.0 32.9 FINAL Abdulkadir Jaime [facility] - [place], [address] [place] [id number] 0 Phone: () - 12/06 CBC w/ auto diff MPV fL 9.5 13.4 9.9 FINAL Abdulkadir Jaime [facility] [place], [address] [place] [id number] 0 Phone: () - 12/06 CBC w/ auto diff RDW % 11.3 15.6 13.00 FINAL Abdulkadir Jaime [facility] [place], [address] [place] [id number] 0 Phone: () - 12/06 PSA diagn ostic panel PSA ng/ml 0.0 4.0 0.50 Test performed at [facility] on a tenXer 2000 Immunoass ay Analyzer that uses an immunoenz ymometric sandwich assay for analysis. Patient testing should not be performed using multiple methodunruly plaza due to analytica l variation seen between test methodunruly plaza. FINAL Abdulkadir Jaime Campbell [facility] - [place], [address] [place] [id number] 0 Phone: () - 12/06 UA Micro scopi c WBC (ua) 0.0 2.0 0-[address] [facility] Jaime Campbell [facility] [place], [address] [place] [address] [address] [facility] [id number] 0 Phone: () - 12/06 UA Micro scopi c RBC (ua) 0.0 2.0 3-5 Abnor mal FINAL [facility] Jaime Campbell [facility] [place], [address] [place] [address] [address] [facility] [id number] 0 Phone: () - 12/06 UA Micro scopi c Epith elial cells (ua) Rare 0-[address] [facility] Jaime we[facility] [place], [address] [place] [address] [address] [facility] [place] [id number] 0 Phone: () - 12/06 UA Micro scopi c Bacte anai (ua) Moderat e Abnor mal FINAL [facility] Jaime Campbell [facility] [place], [address] [place] [address] d [address] [facility] [place] [id number] 0 Phone: () - 12/06 UA Micro scopi c Mucus (ua) Negativ e FINAL Abdulkadir Jaime [facility] - [place], [address] [place] [address] [address] [facility] [place] [id number] 0 Phone: () - 12/06 UA Micro scopi c Casts , urine None FINAL Abdulkadir Jaime Campbell [facility] - [place], [address] [place] [address] d [address] [place] [id number] 0 Phone: () - 12/06 UA Micro scopi c Cryst als (ua) None FINAL Abdulkadir Jaime [facility] [place], [address] [place] [id number] 0 Phone: () - 12/06 UA Micro scopi c UA comme nt 1 Micro Positiv e-Cultu re Ordered FINAL Abdulkadir Jaime [facility] [place], [address] [place] [id number] 0 Phone: () - 12/06 Color (ua) Yellow FINAL Abdulkadir Jaime [facility] [place], [address] [place] [id number] 0 Phone: () - 12/06 Appea rosie (ua) Clear FINAL Abdulkadir Jaime [facility] [place], [address] [place] [id number] 0 Phone: () - 12/06 Gluco se (ua), qual Negativ e FINAL Abdulkadir Jaime Campbell [facility] [place], [address] [place] [id number] 0 Phone: () - 12/06 Bilir ubin (ua) Negativ e FINAL Abdulkadir Jaime [facility] - [place], [address] [place] [id number] 0 Phone: () - 12/06 Urina lysis , aceto ne or keton e vladimir s measu remen t Negativ e FINAL Abdulkadir Jaime [facility] [place], [address] [place] [id number] 0 Phone: () - 12/06 Speci fic gravi ty (ua) 1.005 1.02 1.030 Abnor mal FINAL Abdulkadir Jaime [facility] [place], [address] [place] [id number] 0 Phone: () - 12/06 Blood (ua) Negativ e FINAL Abdulkadir Jaime [facility] [place], [address] [place] [id number] 0 Phone: () - 12/06 pH (ua) 5.0 8.[address] [facility] Jaime [facility]ot [facility] - [place], [address] [place] [id number] 0 Phone: () - 12/06 Prote in (ua) Negativ e FINAL [facility] Jaime [facility] - [place], [address] [place] [id number] 0 Phone: () - 12/06 Urobi linog en (ua) 0.2 [address] [facility] Jaime [facility]ot [facility] - [place], [address] [place] [id number] 0 Phone: () - 12/06 Nitri te (ua) Positiv e Abnor mal FINAL [facility] Jaime Campbell [facility] - [place], [address] [place] [id number] 0 Phone: () - 12/06 Leuko cyte theresa ase (ua), qual Negativ e FINAL [facility] Jaime [facility]ot [facility] - [place], [address] [place] [id number] 0 Phone: () - 12/06 UA comme nt 1 Dipstic k Positiv e-Micro Ordered FINAL [facility] Jaime [facility] - [place], [address] [place] [id number] 0 Phone: () - 12/07 Urine cultu re panel Final repor t, urine cultu re SEE RESULTS BELOW Abnor mal SOURCE: Urine VoidBacte anai Identific ation in Isolate by Culture:R ESULT10,0 00-50,000 CFU/mL Escherich ia coliESBL- positive (Extended -spectrum beta-lact amase); multidrug -resistan t organism. Organism: ESCHERICH IA COLISusce ptibility :Trimetho prim+Sulf amethoxaz ole >=16/304 RAmpicill in >=32 RceFAZoli n >=64 RceFAZoli n >=64 RCefazoli n-UC interpret ations are for therapy of uncomplic ated UTIs due toE.coli, K.pneumon iae, or P.mirabli s.Gentami eric <=1 ScefTRIAX one >=64 RcefTAZid kae RlevoFLOX acin >=8 RCiproflo xacin >=4 RPiperac illin+Arvind obactam <=4 SAmpicill in+Sulbac austin 16 ICefepime RTobramyc in <=1 SMeropene m <=0.25 SNitrofur antoin <=16 STest Performed by:[facility] [address] - [facility] [place] [address]Tjtz e : FINAL Abdulkadir Jaime 01/06 CBC w/ auto diff WBC K/uL 3.0 8.9 5.5 FINAL Abdulkadir Sandovalbrody [facility] - [place], [address] [facility] [address] [place] [id number] 0 Phone: () - 01/06 CBC w/ auto diff HGB g/dL 12.5 16.6 11.0 Low FINAL Abdulkadir Jaime [facility] [place], [address] [place] [id number] 0 Phone: () - 01/06 CBC w/ auto diff PLT K/uL 113.0 364.0 245 FINAL Abdulkadir Jaime [facility] - [place], [address] [place] [id number] 0 Phone: () - 01/06 CBC w/ auto diff Cayet[place] # (ANC) K/uL 1.6 6.6 2.9 FINAL Abdulkadir Sandovalbrody [facility] - [place], [address] [facility] [address] [place] [id number] 0 Phone: () - 01/06 CBC w/ auto diff Cayet[place] % % 43.0 74.0 52.3 FINAL Abdulkadir Jaime [facility] - [place], [address] [place] [id number] [phone] Phone: () - 01/06 CBC w/ auto diff IG % % 0.0 0.5 0.2 FINAL [facility] [place], [address] [place] [phone] 0 Phone: () - 01/06 CBC w/ auto diff IG # K/uL 0.0 0.03 0.01 FINAL Abd[facility]adir Ja[facility] [place], [address] [place] [id number] 0 Phone: () - 01/06 CBC w/ auto diff LY % % 14.0 41.0 31.1 FINAL Abdulkadir Jaime Campbell a [facility] [place], [address] [place] [id number] 0 Phone: () - 01/06 CBC w/ auto diff MO % % 6.0 15.0 9.1 FINAL Abdulkadir Jaime Campbell [facility] [place], [address] [place] [id number] 0 Phone: () - 01/06 CBC w/ auto diff EO % % 0.0 7.0 6.8 FINAL Abdulkadirshell Campbell [facility] [place], [address] [place] [id number] 0 Phone: () - 01/06 CBC w/ auto diff BA % % 0.0 2.0 0.5 FINAL Abdulkadir Jaime Campbell [facility] [place], [address] [place] [id number] 0 Phone: () - 01/06 CBC w/ auto diff LY # K/uL 0.4 3.6 1.7 FINAL Abdulkadir [facility] [place], [address] [place] [id number] 0 Phone: () - 01/06 CBC w/ auto diff MO # K/uL 0.2 1.3 0.5 FINAL Abdulkadir Ja[facility] [place], [address] [place] [id number] 0 Phone: () - 01/06 CBC w/ auto diff EO # K/uL 0.0 0.6 0.4 FINAL Abdulkadir Ja[facility] [place], [address] [place] [id number] 0 Phone: () - 01/06 CBC w/ auto diff BA # K/uL 0.0 0.2 0.0 FINAL Abdulkadir Ja[facility] [place], [address] [place] [id number] 0 Phone: () - 01/06 CBC w/ auto diff NRBC % #/100W BC 0.0 0.2 0.0 FINAL Abdulkadir Ja[facility] [place], [address] [place] [id number] 0 Phone: () - 01/06 CBC w/ auto diff RBC M/uL 4.2 5.6 3.75 Low FINAL Abdulkadir Ja[facility] [place], [address] [place] [phone] 0 Phone: () - 01/06 CBC w/ auto diff HCT % 39.0 49.0 34.1 Low FINAL Abdulkadir Ja[facility] [place], [address] [place] [id number] 0 Phone: () - 01/06 CBC w/ auto diff MCV fL 80.0 104.0 90.9 FINAL Abdulkadir Jaime [facility] [place], [address] [place] [id number] 0 Phone: () - 01/06 CBC w/ auto diff MCH pg 26.0 35.0 29.3 FINAL Abdulkadir Jaime Campbell [facility] [place], [address] [facility] [address] [facility] [place] [id number] 0 Phone: () - 01/06 CBC w/ auto diff MCHC g/dL 30.0 35.0 32.3 FINAL Abdulkadir Jaime Rajan sultana [facility] [place], [address] [facility] [address] [facility] [place] [id number] 0 Phone: () - 01/06 CBC w/ auto diff MPV fL 9.5 13.4 10.0 FINAL Abdulkadir Jaime [facility]an s[facility] [place], [address] [facility] [address] [facility] [place] [id number] 0 Phone: () - 01/06 CBC w/ auto diff RDW % 11.3 15.[address] [facility] Jaime weinberg [facility] [place] , [address] [facility] [address] [facility] [place] [id number] 0 Phone: () - 01/06 PSA diagn ostic panel PSA ng/ml 0.0 4.0 0.30 Test performed at [facility] on a XGIMI Immunoass ay Analyzer that uses an immunoenz ymometric sandwich assay for analysis. Patient testing should not be performed using multiple methodolo girandee due to analytica l variation seen between test methodolo girandee. FINAL [facility], [address] [facility] [address] [place] [address] [id number] 0 Phone: () - 01/06 CMP Album in g/dL 3.2 5.[address] [facility] [address] [facility] [address] [place] [address] [id number] 0 Phone: () - 01/06 CMP Alkal ine phosp hatas e U/L 46.0 116.[address] [facility], [address] [place] [address] [id number] 0 Phone: () - 01/06 CMP ALT/S GPT U/L 7.0 40.[address] [facility], [address] [id number] 0 Phone: () - 01/06 CMP AST/S GOT U/L 13.0 40.0 45 High FINAL [facility] [address] [id number] 0 Phone: () - 01/06 CMP BUN mg/dL 9.0 23.0 25 High FINAL [facility] [address] [id number] 0 Phone: () - 01/06 CMP Calci um mg/dL 8.7 10.4 10.1 FINAL [place] [address] [id number] 0 Phone: () - 01/06 CMP Chlor narinder mmol/L 96.0 114.0 108 FINAL [place] [address] [id number] 0 Phone: () - 01/06 CMP CO2 mmol/L 20.0 31.0 25 The expected total allowable error for CO2 is 5.6%. We have seen up to 10% differenc e in values if reported at the end of the 96 hour stability window. Please consider the clinical significa nce of a 2.0-2.5 mmol/L lower reported CO2 value if reported at the end of the 96 hour stability window. FINAL [facility], [facility] N [address] [id number] 0 Phone: () - 01/06 CMP Creat inine mg/dL 0.5 1.2 1.14 FINAL [place] [address] [id number] 0 Phone: () - 01/06 CMP GFR estim ate ml/min /1.73m ^2 63.7 GFR is calculate d using the CKD-EPI equation. FINAL [place] [address] [place] [id number] 0 Phone: () - 01/06 CMP Gluco se mg/dL 73.0 126.0 119 FINAL Abdulkadir Jaime weinberg [facility], [address] [place] [address] [id number] 0 Phone: () - 01/06 CMP Potas sium mmol/L 3.5 5.1 3.9 FINAL Abdulkadir Jaime Campbell a [facility], [address] [facility] [id number] 0 Phone: () - 01/06 CMP Sodiu m mmol/L 136.0 145.0 144 FINAL Abdulkadir Jaime Campbell a [facility], [address] [id number] 0 Phone: () - 01/06 CMP Bilir ubin, total mg/dL 0.3 1.2 0.2 Low FINAL Abdulkadir Jaime Campbell a [facility], [address] [id number] 0 Phone: () - 01/06 CMP Total prote in g/dL 5.7 8.2 6.5 FINAL Abdulkadir Jaime weinberg [facility], [address] [id number] 0 Phone: () - 02/07 CBC w/ auto diff WBC K/uL 3.0 8.9 3.6 FINAL Abdulkadir Jaime [facility] [place], [address] [facility] [address] [facility] [id number] 0 Phone: () - 02/07 CBC w/ auto diff HGB g/dL 12.5 16.6 11.9 Low FINAL Abdulkadir Jaime [facility] [place], [address] [facility] [address] [facility] [id number] 0 Phone: () - 02/07 CBC w/ auto diff PLT K/uL 113.0 364.0 184 FINAL Abdulkadir Jaime [facility] [place], [address] [facility] [address] [facility] [id number] 0 Phone: () - 02/07 CBC w/ auto diff Cayet[place] # (ANC) K/uL 1.6 6.6 1.8 FINAL Abdulkadir Jaime Campbell [facility] [place], [address] [place] [id number] 0 Phone: () - 02/07 CBC w/ auto diff Cayetano % % 43.0 74.0 48.3 FINAL Abdulkadir Jaime [facility] [place], [address] [place] [id number] 0 Phone: () - 02/07 CBC w/ auto diff IG % % 0.0 0.5 0.3 FINAL Abdulkadir Jaime Campbell [facility] [place], [address] [place] [id number] 0 Phone: () - 02/07 CBC w/ auto diff IG # K/uL 0.0 0.03 0.01 FINAL Abdulkadirshell Campbell [facility] [place], [address] [place] [id number] 0 Phone: () - 02/07 CBC w/ auto diff LY % % 14.0 41.0 32.6 FINAL Abdulkadirshell Campbell [facility] [place], [address] [place] [id number] 0 Phone: () - 02/07 CBC w/ auto diff MO % % 6.0 15.0 15.5 High FINAL Abdulkadirshell Campbell [facility] [place], [address] [place] [id number] 0 Phone: () - 02/07 CBC w/ auto diff EO % % 0.0 7.0 3.0 FINAL Abdulkadir Jaime Campbell [facility] [place], [address] [place] [id number] 0 Phone: () - 02/07 CBC w/ auto diff BA % % 0.0 2.0 0.3 FINAL Abdulkadir Jaime [facility] [place], [address] [place] [id number] 0 Phone: () - 02/07 CBC w/ auto diff LY # K/uL 0.4 3.6 1.2 FINAL Abdulkadir Jaime [facility] [place], [address] [place] [id number] 0 Phone: () - 02/07 CBC w/ auto diff MO # K/uL 0.2 1.3 0.6 FINAL Abdulkadir Jaime [facility] [place], [address] [place] [id number] 0 Phone: () - 02/07 CBC w/ auto diff EO # K/uL 0.0 0.6 0.1 FINAL Abdulkadir Jaime [facility] [place], [address] [place] [id number] 0 Phone: () - 02/07 CBC w/ auto diff BA # K/uL 0.0 0.2 0.0 FINAL Abdulkadir Jaime [facility] [place], [address] [place] [id number] 0 Phone: () - 02/07 CBC w/ auto diff NRBC % #/100W BC 0.0 0.2 0.0 FINAL Abdulkadir Jaime [facility] [place], [address] [place] [id number] 0 Phone: () - 02/07 CBC w/ auto diff RBC M/uL 4.2 5.6 4.07 Low FINAL Abdulkadir Jaime [facility] [place], [address] [place] [id number] 0 Phone: () - 02/07 CBC w/ auto diff HCT % 39.0 49.0 36.0 Low FINAL Abdulkadir Jaime [facility] [place], [address] [place] [id number] 0 Phone: () - 02/07 CBC w/ auto diff MCV fL 80.0 104.0 88.5 FINAL Abdulkadirshell weinberg [facility] [place], [address] [facility] [address] [place] [id number] 0 Phone: () - 02/07 CBC w/ auto diff MCH pg 26.0 35.0 29.2 FINAL Abdulkadirshell weinberg [facility] [place], [address] [facility] [address] [place] [id number] 0 Phone: () - 02/07 CBC w/ auto diff MCHC g/dL 30.0 35.0 33.1 FINAL Abdulkadirshell weinberg [facility] [place], [address] [facility] [address] [place] [id number] 0 Phone: () - 02/07 CBC w/ auto diff MPV fL 9.5 13.4 10.9 FINAL Abdulkadirshell weinberg [facility] [place], [address] [facility] [address] [place] [id number] 0 Phone: () - 02/07 CBC w/ auto diff RDW % 11.3 15.6 14.50 FINAL Abdulkadirshell weinberg [facility] [place], [address] [place] [address] [address] [facility] [place] [phone] 0 Phone: () - 02/07 CMP Album in g/dL 3.2 5.2 3.9 FINAL Abdulkadirshell weinberg [facility], [address] [place] [address] [id number] 0 Phone: () - 02/07 CMP Alkal ine phosp hatas e U/L 46.0 116.0 102 FINAL Abdulkadir Jaime Rajan a [facility], [address] [facility] [address] [place] [address] [id number] 0 Phone: () - 02/07 CMP ALT/S GPT U/L 7.0 40.0 30 FINAL Abdulkadirshell Rajan a [facility], [address] [place] [address] [id number] 0 Phone: () - 02/07 CMP AST/S GOT U/L 13.0 40.0 [address] [facility], [address] [facility] [address] [facility] [id number] 0 Phone: () - 02/07 CMP BUN mg/dL 9.0 23.0 [address] [facility], [address] [facility] [id number] 0 Phone: () - 02/07 CMP Calci um mg/dL 8.7 10.4 9.5 FINAL [facility], [address] [facility] [address] [facility] [id number] 0 Phone: () - 02/07 CMP Chlor narinder mmol/L 96.0 114.0 106 FINAL [facility] [address] [id number] 0 Phone: () - 02/07 CMP CO2 mmol/L 20.0 31.0 27 The expected total allowable error for CO2 is 5.6%. We have seen up to 10% differenc e in values if reported at the end of the 96 hour stability window. Please consider the clinical significa nce of a 2.0-2.5 mmol/L lower reported CO2 value if reported at the end of the 96 hour stability window. FINAL [facility], [address] [id number] 0 Phone: () - 02/07 CMP Creat inine mg/dL 0.5 1.2 1.13 FINAL [facility], [address] [place] [address] [id number] 0 Phone: () - 02/07 CMP GFR estim ate ml/min /1.73m ^2 64.4 GFR is calculate d using the CKD-EPI equation. FINAL [facility], [address] [facility] [id number] 0 Phone: () - 02/07 CMP Gluco se mg/dL 73.0 126.0 92 FINAL [facility], [address] [facility] [address] [facility] [id number] 0 Phone: () - 02/07 CMP Potas sium mmol/L 3.5 5.1 3.7 FINAL [facility], [address] [facility] [address] [facility] [id number] 0 Phone: () - 02/07 CMP Sodiu m mmol/L 136.0 145.[address] [facility] [address] [facility] [address] [facility] [id number] 0 Phone: () - 02/07 CMP Bilir ubin, total mg/dL 0.3 1.2 0.[address] [facility] [address] [id number] 0 Phone: () - 02/07 CMP Total prote in g/dL 5.7 8.2 [address] [facility] [address] [id number] 0 Phone: () - 02/07 PSA diagn ostic panel PSA ng/ml 0.0 4.0 0.30 Test performed at [facility] on a XGIMI Immunoass ay Analyzer that uses an immunoenz ymometric sandwich assay for analysis. Patient testing should not be performed using multiple methodolo gies due to analytica l variation seen between test methodolo gies. FINAL [facility], [address] [facility] [address] [facility] [phone] 0 Phone: () - 03/31 CBC w/ auto diff WBC K/uL 3.0 8.[address] [facility] [place], [address] [place] [id number] 0 Phone: () - 03/31 CBC w/ auto diff HGB g/dL 12.5 16.6 10.[address] [facility] [place], [address] [place] [id number] 0 Phone: () - 03/31 CBC w/ auto diff PLT K/uL 113.0 364.0 257 FINAL Abdulkadirshell Campbell a [facility] [place], [address] [place] [id number] 0 Phone: () - 03/31 CBC w/ auto diff Cayet[place] # (ANC) K/uL 1.6 6.6 3.7 FINAL Abdulkadir Jaime [facility] [place], [address] [place] [id number] 0 Phone: () - 03/31 CBC w/ auto diff Cayetano % % 43.0 74.0 59.8 FINAL Abdulkadirshell Campbell a [facility] [place], [address] [place] [id number] 0 Phone: () - 03/31 CBC w/ auto diff IG % % 0.0 0.5 0.3 FINAL Abdulkadirshell Campbell a [facility] [place], [address] [place] [id number] 0 Phone: () - 03/31 CBC w/ auto diff IG # K/uL 0.0 0.03 0.02 FINAL Abdulkadirshell Campbell a [facility] [place], [address] [place] [id number] 0 Phone: () - 03/31 CBC w/ auto diff LY % % 14.0 41.0 27.9 FINAL Abdulkadirshell Campbell a [facility] [place], [address] [place] [id number] 0 Phone: () - 03/31 CBC w/ auto diff MO % % 6.0 15.0 10.0 FINAL Abdulkadirshell Rajanot a [facility] [place], [address] [place] [id number] 0 Phone: () - 03/31 CBC w/ auto diff EO % % 0.0 7.0 1.5 FINAL Abdulkadirshell [facility]anot [facility] [place], [address] [place] [id number] 0 Phone: () - 03/31 CBC w/ auto diff BA % % 0.0 2.0 0.5 FINAL Abdulkadir Jaime [facility] [place], [address] [place] [id number] 0 Phone: () - 03/31 CBC w/ auto diff LY # K/uL 0.4 3.6 1.7 FINAL Abdulkadir Jaime [facility]ot [facility] [place], [address] [place] [id number] 0 Phone: () - 03/31 CBC w/ auto diff MO # K/uL 0.2 1.3 0.6 FINAL Abdulkadir Jaime [facility]ot [facility] [place], [address] [place] [id number] 0 Phone: () - 03/31 CBC w/ auto diff EO # K/uL 0.0 0.6 0.1 FINAL Abdulkadir Jaime [facility] [place], [address] [place] [id number] 0 Phone: () - 03/31 CBC w/ auto diff BA # K/uL 0.0 0.2 0.0 FINAL Abdulkadir Jaime [facility] [place], [address] [place] [id number] 0 Phone: () - 03/31 CBC w/ auto diff NRBC % #/100W BC 0.0 0.2 0.0 FINAL Abdulkadir Jaime [facility] [place], [address] [place] [id number] 0 Phone: () - 03/31 CBC w/ auto diff RBC M/uL 4.2 5.6 3.50 Low FINAL Abdulkadir Jaime [facility] [place], [address] [place] [id number] 0 Phone: () - 03/31 CBC w/ auto diff HCT % 39.0 49.0 31.4 Low FINAL Abdulkadir Jaime [facility] [place], [address] [facility] [address] [place] [id number] 0 Phone: () - 03/31 CBC w/ auto diff MCV fL 80.0 104.0 89.7 FINAL Abdulkadir Jaime [facility] [place], [address] [facility] [address] [place] [id number] 0 Phone: () - 03/31 CBC w/ auto diff MCH pg 26.0 35.0 29.4 FINAL Abdulkadir Jaime [facility] [place], [address] [facility] [address] [place] [id number] 0 Phone: () - 03/31 CBC w/ auto diff MCHC g/dL 30.0 35.0 32.8 FINAL Abdulkadir Jaime weinberg [facility] [place], [address] [facility] [address] [place] [id number] 0 Phone: () - 03/31 CBC w/ auto diff MPV fL 9.5 13.4 9.9 FINAL Abdulkadir Jaime weinberg [facility] [place], [address] [facility] [address] [place] [id number] 0 Phone: () - 03/31 CBC w/ auto diff RDW % 11.3 15.6 15.00 FINAL Abdulkadir Jaime Campbell a [facility] [place], [address] [facility] [address] [place] [id number] 0 Phone: () - 03/31 CMP Album in g/dL 3.2 5.2 4.0 FINAL Abdulkadir Jaime Rajan a [facility], [facility] [address] [facility] [address] [place] [address] [id number] 0 Phone: () - 03/31 CMP Alkal ine phosp hatas e U/L 46.0 116.0 87 FINAL Abdulkadir Jaime Rajan a [facility], [address] [facility] [address] [place] [address] [place] [id number] 0 Phone: () - 03/31 CMP ALT/S GPT U/L 7.0 40.0 17 FINAL [facility], [address] [facility] [id number] 0 Phone: () - 03/31 CMP AST/S GOT U/L 13.0 40.0 33 FINAL [facility], [address] [facility] [id number] 0 Phone: () - 03/31 CMP BUN mg/dL 9.0 23.0 24 High FINAL [facility] [address] [id number] 0 Phone: () - 03/31 CMP Calci um mg/dL 8.7 10.4 10.6 High FINAL [facility] [address] [id number] 0 Phone: () - 03/31 CMP Chlor narnider mmol/L 96.0 114.0 106 FINAL [facility], [address] [id number] 0 Phone: () - 03/31 CMP CO2 mmol/L 20.0 31.0 27 The expected total allowable error for CO2 is 5.6%. We have seen up to 10% differenc e in values if reported at the end of the 96 hour stability window. Please consider the clinical significa nce of a 2.0-2.5 mmol/L lower reported CO2 value if reported at the end of the 96 hour stability window. FINAL [facility], [address] [place] [address] [id number] 0 Phone: () - 03/31 CMP Creat inine mg/dL 0.5 1.2 1.33 High FINAL [facility], [address] [place] [address] [id number] 0 Phone: () - 03/31 CMP GFR estim ate ml/min /1.73m ^2 52.9 Low GFR is calculate d using the CKD-EPI equation. FINAL Abdulkadir Jaime weinberg [facility], [address] [facility] [id number] 0 Phone: () - 03/31 CMP Gluco se mg/dL 73.0 126.0 89 FINAL Abdulkadir Jaime weinberg [facility], [address] [facility] [id number] 0 Phone: () - 03/31 CMP Potas sium mmol/L 3.5 5.[address] [facility] Jaime weinberg [facility], [address] [place] [address] [id number] 0 Phone: () - 03/31 CMP Sodiu m mmol/L 136.0 145.[address] [facility] Jaime Rajan sultana [facility], [address] [place] [address] [id number] 0 Phone: () - 03/31 CMP Bilir ubin, total mg/dL 0.3 1.2 [address] [facility] Jaime Rajan sultana [facility], [address] [place] [address] [id number] 0 Phone: () - 03/31 CMP Total prote in g/dL 5.7 8.2 [address] [facility] Jaime Rajan sultana [facility], [address] [place] [address] [id number] 0 Phone: () - 05/02 CBC w/ auto diff WBC K/uL 3.0 8.9 [address] [facility] Jaime we[facility] [place] , [address] [place] [address] [place] [address] [place] [id number] 0 Phone: () - 05/02 CBC w/ auto diff HGB g/dL 12.5 16.6 10.[address] [facility] Jaime we[facility] [place] , [address] [place] [address] [address] [place] [address] [place] [id number] 0 Phone: () - 05/02 CBC w/ auto diff PLT K/uL 113.0 364.[address] [facility] Jaime Rajan sultana [facility] [place], [address] [place] [id number] 0 Phone: () - 05/02 CBC w/ auto diff Cayetano # (ANC) K/uL 1.6 6.6 2.6 FINAL Abdulkadirshell Rajanot a [facility] [place], [address] [place] [id number] 0 Phone: () - 05/02 CBC w/ auto diff Cayetano % % 43.0 74.0 53.8 FINAL Abdulkadir Jaime Rajanot a [facility] [place], [address] [place] [id number] 0 Phone: () - 05/02 CBC w/ auto diff IG % % 0.0 0.5 0.2 FINAL Abdulkadir Jaime Rajanot [facility] [place], [address] [place] [id number] 0 Phone: () - 05/02 CBC w/ auto diff IG # K/uL 0.0 0.03 0.01 FINAL Abdulkadir Jaime Rajanot [facility] [place], [address] [place] [id number] 0 Phone: () - 05/02 CBC w/ auto diff LY % % 14.0 41.0 31.7 FINAL Abdulkadir Jaime Rajanot [facility] [place], [address] [place] [id number] 0 Phone: () - 05/02 CBC w/ auto diff MO % % 6.0 15.0 11.5 FINAL Abdulkadir Jaime Rajanot [facility] [place], [address] [place] [id number] 0 Phone: () - 05/02 CBC w/ auto diff EO % % 0.0 7.0 2.0 FINAL Abdulkadir Jaime Rajanot [facility] [place], [address] [place] [id number] 0 Phone: () - 05/02 CBC w/ auto diff BA % % 0.0 2.0 0.8 FINAL Abdulkadir Jaime [facility]ot [facility] [place], [address] [address] [place] [id number] 0 Phone: () - 05/02 CBC w/ auto diff LY # K/uL 0.4 3.6 1.6 FINAL Abdulkadir Jaime [facility] [place], [address] [place] [id number] 0 Phone: () - 05/02 CBC w/ auto diff MO # K/uL 0.2 1.3 0.6 FINAL Abdulkadir Jaime [facility] [place], [address] [place] [id number] 0 Phone: () - 05/02 CBC w/ auto diff EO # K/uL 0.0 0.6 0.1 FINAL Abdulkadir Jaime [facility] [place], [address] [place] [id number] 0 Phone: () - 05/02 CBC w/ auto diff BA # K/uL 0.0 0.2 0.0 FINAL Abdulkadir Jaime [facility] [place], [address] [place] [id number] 0 Phone: () - 05/02 CBC w/ auto diff NRBC % #/100W BC 0.0 0.2 0.0 FINAL Abdulkadir Jaime [facility] [place], [address] [place] [id number] 0 Phone: () - 05/02 CBC w/ auto diff RBC M/uL 4.2 5.6 3.68 Low FINAL Abdulkadir Jaime [facility] [place], [address] [place] [id number] 0 Phone: () - 05/02 CBC w/ auto diff HCT % 39.0 49.0 32.6 Low FINAL Abdulkadir Jaime [facility] [place], [address] [place] [id number] 0 Phone: () - 05/02 CBC w/ auto diff MCV fL 80.0 104.0 88.6 FINAL Abdulkadirshell Campbell [facility] - [place], [address] [place] [id number] 0 Phone: () - 05/02 CBC w/ auto diff MCH pg 26.0 35.0 29.1 FINAL Abdulkadirshell Campbell [facility] [place], [address] [place] [id number] 0 Phone: () - 05/02 CBC w/ auto diff MCHC g/dL 30.0 35.0 32.8 FINAL Abdulkadir [facility] - [place], [address] [place] [id number] 0 Phone: () - 05/02 CBC w/ auto diff MPV fL 9.5 13.4 9.7 FINAL Abdulkadir [facility] - [place], [address] [place] [id number] 0 Phone: () - 05/02 CBC w/ auto diff RDW % 11.3 15.6 14.20 FINAL [facility]adir [facility] [place], [address] [facility] [address] [place] [id number] 0 Phone: () - 05/02 CMP Album in g/dL 3.2 5.2 4.1 FINAL Abdulkadirshell Campbell [facility], [address] [place] [id number] 0 Phone: () - 05/02 CMP Alkal ine phosp hatas e U/L 46.0 116.0 85 FINAL Abdulkaidr Jaime Campbell [facility], [address] [place] [id number] 0 Phone: () - 05/02 CMP ALT/S GPT U/L 7.0 40.0 24 FINAL Abdulkadir Jaime [facility], [address] [id number] 0 Phone: () - 05/02 CMP AST/S GOT U/L 13.0 40.0 45 High FINAL [place] [address] [id number] 0 Phone: () - 05/02 CMP BUN mg/dL 9.0 23.[address] [facility] Jaime [place] [address] [id number] 0 Phone: () - 05/02 CMP Calci um mg/dL 8.7 10.4 10.5 High FINAL [place] [address] [id number] 0 Phone: () - 05/02 CMP Chlor anrinder mmol/L 96.0 114.0 106 FINAL [place] [address] [id number] 0 Phone: () - 05/02 CMP CO2 mmol/L 20.0 31.0 28 The expected total allowable error for CO2 is 5.6%. We have seen up to 10% differenc e in values if reported at the end of the 96 hour stability window. Please consider the clinical significa nce of a 2.0-2.5 mmol/L lower reported CO2 value if reported at the end of the 96 hour stability window. FINAL [facility] Jaime [facility], [facility] [address] [id number] 0 Phone: () - 05/02 CMP Creat inine mg/dL 0.5 1.2 1.35 High FINAL [place] [address] [id number] 0 Phone: () - 05/02 CMP GFR estim ate ml/min /1.73m ^2 51.9 Low GFR is calculate d using the CKD-EPI equation. FINAL [place] [address] [id number] 0 Phone: () - 05/02 CMP Gluco se mg/dL 73.0 126.0 94 FINAL [place] [address] [id number] 0 Phone: () - 05/02 CMP Potas sium mmol/L 3.5 5.1 4.3 FINAL [place] [address] [id number] 0 Phone: () - 05/02 CMP Sodiu m mmol/L 136.0 145.0 144 FINAL [place] [address] [id number] 0 Phone: () - 05/02 CMP Bilir ubin, total mg/dL 0.3 1.2 0.3 FINAL [place] [address] [id number] 0 Phone: () - 05/02 CMP Total prote in g/dL 5.7 8.2 6.5 FINAL [place] [address] [id number] 0 Phone: () - 05/02 PSA diagn ost panel PSA ng/ml 0.0 4.0 0.20 Test performed at [facility] on a XGIMI Immunoass ay Analyzer that uses an immunoenz ymometric sandwich assay for analysis. Patient testing should not be performed using multiple methodunruly plaza due to analytica l variation seen between test methodunruly plaza. FINAL [place] [address] [id number] 0 Phone: () - 07/25 CMP Album in g/dL 3.2 5.2 4.0 FINAL [place] [address] [id number] 0 Phone: () - 07/25 CMP Alkal ine phosp hatas e U/L 46.0 116.0 105 FINAL [place] [address] [id number] 0 Phone: () - 07/25 CMP ALT/S GPT U/L 7.0 40.0 13 FINAL [facility], [address] [facility] [address] [id number] 0 Phone: () - 07/25 CMP AST/S GOT U/L 13.0 40.0 26 FINAL [facility] [address] [facility] [address] [id number] 0 Phone: () - 07/25 CMP BUN mg/dL 9.0 23.0 22 FINAL [place] [address] [address] [facility] [address] [id number] 0 Phone: () - 07/25 CMP Calci um mg/dL 8.7 10.4 9.6 FINAL [place] [address] [id number] 0 Phone: () - 07/25 CMP Chlor narinder mmol/L 96.0 114.0 106 FINAL [place] [address] [address] [facility] [address] [id number] 0 Phone: () - 07/25 CMP CO2 mmol/L 20.0 31.0 25 The expected total allowable error for CO2 is 5.6%. We have seen up to 10% differenc e in values if reported at the end of the 96 hour stability window. Please consider the clinical significa nce of a 2.0-2.5 mmol/L lower reported CO2 value if reported at the end of the 96 hour stability window. FINAL [facility], [facility] [address] [facility] [address] [id number] 0 Phone: () - 07/25 CMP Creat inine mg/dL 0.5 1.2 1.09 FINAL [place] [address] [address] [facility] [address] [id number] 0 Phone: () - 07/25 CMP GFR estim ate ml/min /1.73m ^2 67.0 GFR is calculate d using the CKD-EPI equation. FINAL [facility], [address] [facility] [address] [facility] [id number] 0 Phone: () - 07/25 CMP Gluco se mg/dL 73.0 126.0 96 FINAL [facility] [address] [facility] [address] [place] [address] [id number] 0 Phone: () - 07/25 CMP Potas sium mmol/L 3.5 5.1 4.1 FINAL [facility] [address] [facility] [address] [place] [address] [phone] 0 Phone: () - 07/25 CMP Sodiu m mmol/L 136.0 145.0 142 FINAL [facility] [address] [id number] 0 Phone: () - 07/25 CMP Bilir ubin, total mg/dL 0.3 1.2 0.3 FINAL [facility] [address] [facility] [address] [id number] 0 Phone: () - 07/25 CMP Total prote in g/dL 5.7 8.2 6.4 FINAL [place] [address] [address] [facility] [address] [id number] 0 Phone: () - 07/25 PSA diagn ostic panel PSA ng/ml 0.0 4.0 0.10 Test performed at [facility] on a XGIMI Immunoass ay Analyzer that uses an immunoenz ymometric sandwich assay for analysis. Patient testing should not be performed using multiple methodunruly plaza due to analytica l variation seen between test methodunruly plaza. FINAL [facility], [facility] [address] [facility] [address] [id number] 0 Phone: () - 07/25 CBC w/ auto diff WBC K/uL 3.[address] [facility], [address] [facility] [id number] 0 Phone: () - 07/25 CBC w/ auto diff HGB g/dL 12.5 16.6 11.8 Low FINAL [facility] [place], [address] [place] [id number] 0 Phone: () - 07/25 CBC w/ auto diff PLT K/uL 113.0 364.0 263 FINAL Abd[facility]adir [facility] [place], [address] [place] [id number] 0 Phone: () - 07/25 CBC w/ auto diff Plate let, immat ure, fract ion % 0.9 11.2 No result FINAL Abd[facility]adir [facility] [place], [address] [place] [id number] 0 Phone: () - 07/25 CBC w/ auto diff Cayetano # (ANC) K/uL 1.6 6.6 3.3 FINAL Abdulkadir [facility] - [place], [address] [place] [id number] 0 Phone: () - 07/25 CBC w/ auto diff Cayetano % % 43.0 74.0 54.9 FINAL Abdulkadir [facility] - [place], [address] [place] [id number] 0 Phone: () - 07/25 CBC w/ auto diff IG % % 0.0 0.5 0.2 FINAL Abdulkadir [facility] - [place], [address] [place] [id number] 0 Phone: () - 07/25 CBC w/ auto diff IG # K/uL 0.0 0.03 0.01 FINAL Abdulkadir [facility] - [place], [address] [place] [id number] 0 Phone: () - 07/25 CBC w/ auto diff LY % % 14.0 41.0 23.3 FINAL Abdulkadir [facility] [place], [address] [place] [id number] 0 Phone: () - 07/25 CBC w/ auto diff MO % % 6.0 15.0 11.7 FINAL Abdulkadir Jaime [facility] [place], [address] [place] [id number] 0 Phone: () - 07/25 CBC w/ auto diff EO % % 0.0 7.0 9.4 High FINAL Abdulkadir Jaime [facility] [place], [address] [place] [id number] 0 Phone: () - 07/25 CBC w/ auto diff BA % % 0.0 2.0 0.5 FINAL Abdulkadir Jaime [facility] [place], [address] [place] [id number] 0 Phone: () - 07/25 CBC w/ auto diff LY # K/uL 0.4 3.6 1.4 FINAL Abdulkadir aJime [facility] - [place], [address] [place] [id number] 0 Phone: () - 07/25 CBC w/ auto diff MO # K/uL 0.2 1.3 0.7 FINAL Abdulkadir Jaime [facility] [place], [address] [place] [id number] 0 Phone: () - 07/25 CBC w/ auto diff EO # K/uL 0.0 0.6 0.6 FINAL Abdulkadir Jaime [facility] - [place], [address] [place] [id number] 0 Phone: () - 07/25 CBC w/ auto diff BA # K/uL 0.0 0.2 0.0 FINAL Abdulkadir Jaime [facility] [place], [address] [place] [id number] 0 Phone: () - 07/25 CBC w/ auto diff NRBC % #/100W BC 0.0 0.2 0.0 FINAL Abdulkadir Jaime [facility] - [place], [address] [facility] [address] [place] [id number] 0 Phone: () - 07/25 CBC w/ auto diff RBC M/uL 4.2 5.6 3.89 Low FINAL Abdulkadir Jaime Campbell [facility] - [place], [address] [facility] [address] [place] [id number] 0 Phone: () - 07/25 CBC w/ auto diff HCT % 39.0 49.0 36.0 Low FINAL Abdulkadir Jaime [facility] - [place], [address] [facility] [address] [place] [id number] 0 Phone: () - 07/25 CBC w/ auto diff MCV fL 80.0 104.0 92.5 FINAL Abdulkadir Jaime [facility] - [place], [address] [facility] [address] [place] [id number] 0 Phone: () - 07/25 CBC w/ auto diff MCH pg 26.0 35.0 30.3 FINAL Abdulkadir Jaime [facility] - [place], [address] [facility] [address] [place] [id number] 0 Phone: () - 07/25 CBC w/ auto diff MCHC g/dL 30.0 35.0 32.8 FINAL Abdulkadir Jaime [facility] [place], [address] [facility] [address] [place] [id number] 0 Phone: () - 07/25 CBC w/ auto diff MPV fL 9.5 13.4 9.7 FINAL Abdulkadirshell Campbell [facility] - [place], [address] [facility] [address] [place] [id number] 0 Phone: () - 07/25 CBC w/ auto diff RDW % 11.3 15.6 14.80 FINAL Abdulkadir Jaime [facility] - [place], [address] [facility] [address] [facility] [id number] 0 Phone: () - 07/25 CBC w/ auto diff Auto CBC comme nts No result FINAL Abdulkadir weinberg [facility] angelic, [address] [facility] [address] [facility] [place] [id number] 0 Phone: () - 10/24 PSA diagn ostic panel PSA ng/ml 0.0 4.0 0.10 Test performed at [facility] on a XGIMI Immunoass ay Analyzer that uses an immunoenz ymometric sandwich assay for analysis. Patient testing should not be performed using multiple methodolo girandee due to analytica l variation seen between test methodunruly plaza. FINAL [place] [address] [id number] 0 Phone: () - 10/24 CMP Album in g/dL 3.2 5.2 [address] [facility] [place] [address] [id number] 0 Phone: () - 10/24 CMP Alkal ine phosp hatas e U/L 46.0 116.[address] [facility] [place] [address] [id number] 0 Phone: () - 10/24 CMP ALT/S GPT U/L 7.0 40.[address] [facility] [place] [address] [id number] 0 Phone: () - 10/24 CMP AST/S GOT U/L 13.0 40.[address] [facility] [place] [address] [id number] 0 Phone: () - 10/24 CMP BUN mg/dL 9.0 23.[address] [facility] [place] [address] [id number] 0 Phone: () - 10/24 CMP Calci um mg/dL 8.7 10.4 10.1 FINAL Abdulkadir Jain [place] [address] [id number] 0 Phone: () - 10/24 CMP Chlor narinder mmol/L 96.0 114.0 107 FINAL [place] [address] [id number] 0 Phone: () - 10/24 CMP CO2 mmol/L 20.0 31.0 26 The expected total allowable error for CO2 is 5.6%. We have seen up to 10% differenc e in values if reported at the end of the 96 hour stability window. Please consider the clinical significa nce of a 2.0-2.5 mmol/L lower reported CO2 value if reported at the end of the 96 hour stability window. [facility]AL [facility] [place] [address] [id number] 0 Phone: () - 10/24 CMP Creat inine mg/dL 0.5 1.2 1.16 FINAL [place] [address] [id number] 0 Phone: () - 10/24 CMP GFR estim ate ml/min /1.73m ^2 62.1 GFR is calculate d using the CKD-EPI equation. FINAL [place] [address] [id number] 0 Phone: () - 10/24 CMP Gluco se mg/dL 73.0 126.0 110 FINAL [place] [address] [id number] 0 Phone: () - 10/24 CMP Potas sium mmol/L 3.5 5.1 3.8 [place] [address] [id number] 0 Phone: () - 10/24 CMP Sodiu m mmol/L 136.0 145.0 145 FINAL [place] [address] N [place] [address] [facility] [id number] 0 Phone: () - 10/24 CMP Bilir ubin, total mg/dL 0.3 1.2 0.5 FINAL Abdulkadir [facility] [place], [address] [facility] [address] [place] [id number] 0 Phone: () - 10/24 CMP Total prote in g/dL 5.7 8.2 6.4 FINAL Abdulkadirshell we[facility] - [place], [address] [facility] [address] [place] [id number] 0 Phone: () - 10/24 CBC w/ auto diff WBC K/uL 3.0 8.9 4.2 FINAL Abdulkadirshell weinberg [facility] [place], [address] [place] [address] [address] [facility] [id number] 0 Phone: () - 10/24 CBC w/ auto diff HGB g/dL 12.5 16.6 10.1 Low FINAL Abdulkadirshell weinberg [facility] - [place], [address] [place] [address] [address] [facility] [place] [id number] 0 Phone: () - 10/24 CBC w/ auto diff PLT K/uL 113.0 364.0 269 FINAL Abdulkadirshell weinberg [facility] - [place], [address] [place] [address] d [address] [facility] [facility] [place] [id number] 0 Phone: () - 10/24 CBC w/ auto diff Cayet[place] # (ANC) K/uL 1.6 6.6 2.1 FINAL Abdulkadirshell Campbell [facility] - [place], [address] [place] [address] d [address] [place] [facility] [place] [id number] 0 Phone: () - 10/24 CBC w/ auto diff Cayet[place] % % 43.0 74.0 50.7 FINAL Abdulkadirshell Campbell [facility] - [place], [address] [place] [address] [address] [place] [id number] 0 Phone: () - 10/24 CBC w/ auto diff IG % % 0.0 0.5 0.0 FINAL Abdulkadir [place] [facility] [place], [address] [place] [id number] 0 Phone: () - 10/24 CBC w/ auto diff IG # K/uL 0.0 0.03 0.00 FINAL Abdulkadir Jaime [facility] - [place], [address] [place] [id number] 0 Phone: () - 10/24 CBC w/ auto diff LY % % 14.0 41.0 34.9 FINAL Abdulkadir Jaime [facility] - [place], [address] [place] [id number] 0 Phone: () - 10/24 CBC w/ auto diff MO % % 6.0 15.0 11.2 FINAL Abdulkadir Jaime [facility] [place], [address] [place] [id number] 0 Phone: () - 10/24 CBC w/ auto diff EO % % 0.0 7.0 2.2 FINAL Abdulkadir Jaime [facility] - [place], [address] [place] [id number] 0 Phone: () - 10/24 CBC w/ auto diff BA % % 0.0 2.0 1.0 FINAL Abdulkadir Jaime [facility] [place], [address] [place] [id number] 0 Phone: () - 10/24 CBC w/ auto diff LY # K/uL 0.4 3.6 1.5 FINAL Abdulkadir Jaime [facility] - [place], [address] [place] [id number] 0 Phone: () - 10/24 CBC w/ auto diff MO # K/uL 0.2 1.3 0.5 FINAL Abdulkadir Jaime [facility] [place], [address] [place] [id number] 0 Phone: () - 10/24 CBC w/ auto diff EO # K/uL 0.0 0.6 0.1 FINAL Abdulkadir Jaime [facility] [place], [address] [place] [id number] 0 Phone: () - 10/24 CBC w/ auto diff BA # K/uL 0.0 0.2 0.0 FINAL Abdulkadir Jaime [facility] [place], [address] [place] [id number] 0 Phone: () - 10/24 CBC w/ auto diff NRBC % #/100W BC 0.0 0.2 0.0 FINAL Abdulkadir Jaime [facility] - [place], [address] [facility] [address] [place] [id number] 0 Phone: () - 10/24 CBC w/ auto diff RBC M/uL 4.2 5.6 3.37 Low FINAL Abdulkadir Jaime [facility] [place], [address] [facility] [address] [place] [id number] 0 Phone: () - 10/24 CBC w/ auto diff HCT % 39.0 49.0 31.2 Low FINAL Abdulkadir Jaime [facility] [place], [address] [facility] [address] [place] [id number] 0 Phone: () - 10/24 CBC w/ auto diff MCV fL 80.0 104.0 92.6 FINAL Abdulkadir Jaime [facility] - [place], [address] [place] [id number] 0 Phone: () - 10/24 CBC w/ auto diff MCH pg 26.0 35.0 30.0 FINAL Abdulkadir Jaime [facility] - [place], [address] [place] [id number] 0 Phone: () - 10/24 CBC w/ auto diff MCHC g/dL 30.0 35.0 32.4 FINAL Abdulkadir Jaime [facility] [place], [address] [place] [id number] 0 Phone: () - 10/24 CBC w/ auto diff MPV fL 9.5 13.4 10.1 FINAL Abdulkadir Jaime [facility] - [place], [address] [place] [id number] 0 Phone: () - 10/24 CBC w/ auto diff RDW % 11.3 15.6 14.40 FINAL Abdulkadir Jaime [facility] - [place], [address] [place] [id number] 0 Phone: () - 11/03 [facility] other lab See epidemiology investigator d 01/18 CBC w/ auto diff WBC K/uL 3.0 8.9 5.0 FINAL Abdulkadir Jaime [facility] - [place], [address] [place] [id number] 0 Phone: () - 01/18 CBC w/ auto diff HGB g/dL 12.5 16.6 11.3 Low FINAL Abdulkadir Jaime [facility] - [place], [address] [place] [id number] 0 Phone: () - 01/18 CBC w/ auto diff PLT K/uL 113.0 364.0 177 FINAL Abdulkadir Jaime [facility] - [place], [address] [place] [id number] 0 Phone: () - 01/18 CBC w/ auto diff Cayetano # (ANC) K/uL 1.6 6.6 2.8 FINAL Abdulkadir Jaime [facility] - [place], [address] [place] [id number] 0 Phone: () - 01/18 CBC w/ auto diff Cayetano % % 43.0 74.0 55.5 FINAL Abdulkadir Jaime [facility] - [place], [address] [place] [id number] 0 Phone: () - 01/18 CBC w/ auto diff IG % % 0.0 0.5 0.2 FINAL Abdulkadirshell Campbell [facility] - [place], [address] [place] [id number] 0 Phone: () - 01/18 CBC w/ auto diff IG # K/uL 0.0 0.03 0.01 FINAL Abdulkadir Jaime [facility] - [place], [address] [place] [id number] 0 Phone: () - 01/18 CBC w/ auto diff LY % % 14.0 41.0 31.7 FINAL Abdulkadirshell Rajanot [facility] - [place], [address] [place] [id number] 0 Phone: () - 01/18 CBC w/ auto diff MO % % 6.0 15.0 10.6 FINAL Abdulkadirshell Campbell [facility] - [place], [address] [place] [id number] 0 Phone: () - 01/18 CBC w/ auto diff EO % % 0.0 7.0 1.6 FINAL Abdulkadirshell Campbell [facility] - [place], [address] [place] [id number] 0 Phone: () - 01/18 CBC w/ auto diff BA % % 0.0 2.0 0.4 FINAL Abdulkadirshell aCmpbell a [facility] - [place], [address] [place] [id number] 0 Phone: () - 01/18 CBC w/ auto diff LY # K/uL 0.4 3.6 1.6 FINAL Abdulkadirshell Campbell [facility] - [place], [address] [place] [id number] 0 Phone: () - 01/18 CBC w/ auto diff MO # K/uL 0.2 1.3 0.5 FINAL Abdulkadirshell Rajanot [facility] - [place], [address] [place] [id number] 0 Phone: () - 01/18 CBC w/ auto diff EO # K/uL 0.0 0.6 0.1 FINAL Abdulkadir Jaime [facility] - [place], [address] [place] [id number] 0 Phone: () - 01/18 CBC w/ auto diff BA # K/uL 0.0 0.2 0.0 FINAL Abdulkadir Jaime [facility] - [place], [address] [place] [id number] 0 Phone: () - 01/18 CBC w/ auto diff NRBC % #/100W BC 0.0 0.2 0.0 FINAL Abdulkadir Jaime [facility] - [place], [address] [place] [id number] 0 Phone: () - 01/18 CBC w/ auto diff RBC M/uL 4.2 5.6 3.56 Low FINAL Abdulkadir Jaime [facility] - [place], [address] [place] [id number] 0 Phone: () - 01/18 CBC w/ auto diff HCT % 39.0 49.0 33.2 Low FINAL Abdulkadir Jaime [facility] - [place], [address] [place] [id number] 0 Phone: () - 01/18 CBC w/ auto diff MCV fL 80.0 104.0 93.3 FINAL Abdulkadir Jaime [facility] - [place], [address] [place] [id number] 0 Phone: () - 01/18 CBC w/ auto diff MCH pg 26.0 35.0 31.7 FINAL Abdulkadir Jaime [facility] - [place], [address] [place] [id number] 0 Phone: () - 01/18 CBC w/ auto diff MCHC g/dL 30.0 35.0 34.0 FINAL Abdulkadir Jaime [facility] - [place], [address] [facility] [address] [place] [id number] 0 Phone: () - 01/18 CBC w/ auto diff MPV fL 9.5 13.4 11.2 FINAL Abdulkadir Jaime [facility] - [place], [address] [facility] [address] [place] [id number] 0 Phone: () - 01/18 CBC w/ auto diff RDW % 11.3 15.6 13.50 FINAL Abdulkadir Jaime [facility] - [place], [address] [facility] [address] [facility] [place] [id number] 0 Phone: () - 01/18 CMP Album in g/dL 3.2 5.2 4.0 FINAL [facility]ir [facility], [address] [facility] [address] [place] [place] [address] [phone] 0 Phone: () - 01/18 CMP Alkal ine phosp hatas e U/L 46.0 116.[address] [facility], [address] [facility] [address] [place] [address] [id number] 0 Phone: () - 01/18 CMP ALT/S GPT U/L 7.0 40.[address] [facility] Jaime [facility], [address] [facility] [address] [place] [address] [id number] [phone] Phone: () - 01/18 CMP AST/S GOT U/L 13.0 40.0 29 FINAL Abdulkadir [facility], [address] [facility] [address] [place] [address] [id number] 0 Phone: () - 01/18 CMP BUN mg/dL 9.0 23.[address] [facility] Jaime [facility], [address] [facility] [address] [place] [address] [id number] 0 Phone: () - 01/18 CMP Calci um mg/dL 8.7 10.4 9.7 FINAL Abdulkadirsavannah Sandoval [place] [address] [id number] 0 Phone: () - 01/18 CMP Chlor narinder mmol/L 96.0 114.[address] [facility] Jaime [place] [address] [id number] [phone] Phone: () - 01/18 CMP CO2 mmol/L 20.0 31.0 25 The expected total allowable error for CO2 is 5.6%. We have seen up to 10% differenc e in values if reported at the end of the 96 hour stability window. Please consider the clinical significa nce of a 2.0-2.5 mmol/L lower reported CO2 value if reported at the end of the 96 hour stability window. FINAL Abdulkadir Jain [place] [address] [phone] 0 Phone: () - 01/18 CMP Creat inine mg/dL 0.5 1.2 1.[address] [facility] Sandoval [place] [address] [id number] 0 Phone: () - 01/18 CMP GFR estim ate ml/min /1.73m ^2 55.1 Low GFR is calculate d using the CKD-EPI equation. [place] [address] [phone] 0 Phone: () - 01/18 CMP Gluco se mg/dL 73.0 126.[address] [facility] Jaime [place] [address] [id number] 0 Phone: () - 01/18 CMP Potas sium mmol/L 3.5 5.1 4.1 FINAL [place] [address] [id number] 0 Phone: () - 01/18 CMP Sodiu m mmol/L 136.0 145.0 144 FINAL [place] [address] [id number] 0 Phone: () - 01/18 CMP Bilir ubin, total mg/dL 0.3 1.2 0.2 Low FINAL [place] [address] [id number] 0 Phone: () - 01/18 CMP Total prote in g/dL 5.7 8.2 6.2 FINAL [place] [address] [id number] 0 Phone: () - 01/18 PSA diagn ostic panel PSA ng/ml 0.0 4.0 PSA less than 0.05; Repeate d Test performed at [facility] on a XGIMI Immunoass ay Analyzer that uses an immunoenz ymometric sandwich assay for analysis. Patient testing should not be performed using multiple methodolo girandee due to analytica l variation seen between test methodolo girandee. FINAL [place] [address] [id number] 0 Phone: () - 05/04 CMP Album in g/dL 3.2 5.2 4.1 FINAL [place] [address] [id number] 0 Phone: () - 05/04 CMP Alkal ine phosp hatas e U/L 46.0 116.0 111 FINAL [place] [address] [id number] 0 Phone: () - 05/04 CMP ALT/S GPT U/L 7.0 40.0 19 FINAL [place] [address] [address] [facility] [address] [id number] 0 Phone: () - 05/04 CMP AST/S GOT U/L 13.0 40.0 34 FINAL [place] [address] [facility] [address] [phone] 0 Phone: () - 05/04 CMP BUN mg/dL 9.0 23.0 19.0 FINAL [facility], [address] [id number] 0 Phone: () - 05/04 CMP Calci um mg/dL 8.7 10.4 9.8 FINAL [place] [address] [id number] 0 Phone: () - 05/04 CMP Chlor narinder mmol/L 96.0 114.0 107 FINAL Abdulkadir Jain [place] [address] [id number] 0 Phone: () - 05/04 CMP CO2 mmol/L 20.0 31.0 24 The expected total allowable error for CO2 is 5.6%. We have seen up to 10% differenc e in values if reported at the end of the 96 hour stability window. Please consider the clinical significa nce of a 2.0-2.5 mmol/L lower reported CO2 value if reported at the end of the 96 hour stability window. FINAL [place] [address] [id number] 0 Phone: () - 05/04 CMP Creat inine mg/dL 0.5 1.2 1.06 FINAL Abdulkadir Jain [place] [address] [id number] 0 Phone: () - 05/04 CMP GFR estim ate ml/min /1.73m ^2 69.0 GFR is calculate d using the CKD-EPI equation. FINAL [place] [address] [id number] 0 Phone: () - 05/04 CMP Gluco se mg/dL 73.0 126.[address] [facility] Sandoval [place] [address] [id number] 0 Phone: () - 05/04 CMP Potas sium mmol/L 3.5 5.[address] [facility] [place] [address] [id number] 0 Phone: () - 05/04 CMP Sodiu m mmol/L 136.0 145.[address] [facility] Jaime weinberg [facility], [address] [facility] [address] [facility] [id number] 0 Phone: () - 05/04 CMP Bilir ubin, total mg/dL 0.3 1.[address] [facility] Jaime Rajan sultana [facility], [address] [facility] [id number] 0 Phone: () - 05/04 CMP Total prote in g/dL 5.7 8.[address] [facility] Jaime Rajan sultana [facility] [address] [facility] [address] [facility] [id number] 0 Phone: () - 05/04 PSA diagn ostic panel PSA ng/ml 0.0 4.0 PSA less than 0.05 Test performed at [facility] on a XGIMI Immunoass ay Analyzer that uses an immunoenz ymometric sandwich assay for analysis. Patient testing should not be performed using multiple methodolo mela due to analytica l variation seen between test methodunruly plaza. FINAL [facility] Jaime Rajan sultana [facility], [address] [facility] [address] [facility] [id number] 0 Phone: () - 05/04 CBC w/ auto diff WBC K/uL 3.0 8.[address] [facility] Jaime weinberg [facility] [place], [address] [facility] [phone] 0 Phone: () - 05/04 CBC w/ auto diff HGB g/dL 12.5 16.6 11.[address] [facility] Jaime Campbell a [facility] [place], [address] [place] [id number] 0 Phone: () - 05/04 CBC w/ auto diff PLT K/uL 113.0 364.0 222 FINAL Abdulkadir Jaime Rajan a [facility] - [place], [address] [facility] [id number] 0 Phone: () - 06/16 /2023 CBC w/ auto diff [place] # (ANC) K/uL 1.6 6.6 2.0 FINAL Abdulkadirshell Rajanot a [facility] - [place], [address] [place] [id number] 0 Phone: () - 05/04 CBC w/ auto diff [place] % % 43.0 74.0 46.4 FINAL Abdulkadir Jaime Rajanot a [facility] - [place], [address] [place] [id number] 0 Phone: () - 05/04 CBC w/ auto diff IG % % 0.0 0.5 0.0 FINAL Abdulkadir Jaime Rajanot a [facility] - [place], [address] [place] [id number] 0 Phone: () - 05/04 CBC w/ auto diff IG # K/uL 0.0 0.03 0.00 FINAL Abdulkadir Jaime Rajanot a [facility] - [place], [address] [place] [id number] 0 Phone: () - 05/04 CBC w/ auto diff LY % % 14.0 41.0 38.0 FINAL Abdulkadirshell Rajanot a [facility] - [place], [address] [place] [id number] 0 Phone: () - 05/04 CBC w/ auto diff MO % % 6.0 15.0 10.0 FINAL Abdulkadir Jaime Rajanot a [facility] - [place], [address] [place] [id number] 0 Phone: () - 05/04 CBC w/ auto diff EO % % 0.0 7.0 4.9 FINAL Abdulkadirshell Rajanot a [facility] - [place], [address] [place] [id number] 0 Phone: () - 05/04 CBC w/ auto diff BA % % 0.0 2.0 0.7 FINAL Abdulkadir Jaime Rajanot a [facility] - [place], [address] [place] [id number] 0 Phone: () - 05/04 CBC w/ auto diff LY # K/uL 0.4 3.6 1.6 FINAL Abdulkdair Jaime Rajanot a [facility] - [place], [address] [place] [id number] 0 Phone: () - 05/04 CBC w/ auto diff MO # K/uL 0.2 1.3 0.4 FINAL Abdulkadir Jaime Rajanot a [facility] - [place], [address] [place] [id number] 0 Phone: () - 05/04 CBC w/ auto diff EO # K/uL 0.0 0.6 0.2 FINAL Abdulkadir Jaime Rajanot a [facility] - [place], [address] [place] [id number] 0 Phone: () - 05/04 CBC w/ auto diff BA # K/uL 0.0 0.2 0.0 FINAL Abdulkadir Jaime Rajanot a [facility] - [place], [address] [place] [id number] 0 Phone: () - 05/04 CBC w/ auto diff NRBC % #/100W BC 0.0 0.2 0.0 FINAL Abdulkadir Jaime Rajanot a [facility] - [place], [address] [place] [id number] 0 Phone: () - 05/04 CBC w/ auto diff RBC M/uL 4.2 5.6 3.89 Low FINAL Abdulkadir Jaime Rajanot a [facility] - [place], [address] [place] [id number] 0 Phone: () - 05/04 CBC w/ auto diff HCT % 39.0 49.0 34.7 Low FINAL Abdulkadir Jaime Rajanot a [facility] - [place], [address] [place] [id number] 0 Phone: () - 05/04 CBC w/ auto diff MCV fL 80.0 104.0 89.2 FINAL Abdulkadir Jaime Rajanot a [facility] - [place], [address] [place] [id number] 0 Phone: () - 05/04 CBC w/ auto diff MCH pg 26.0 35.0 29.6 FINAL Abdulkadir Jaime Rajanot a [facility] - [place], [address] [place] [id number] 0 Phone: () - 05/04 CBC w/ auto diff MCHC g/dL 30.0 35.0 33.1 FINAL Abdulkadir Jaime Rajanot a [facility] - [place], [address] [place] [id number] 0 Phone: () - 05/04 CBC w/ auto diff MPV fL 9.5 13.4 11.0 FINAL Abdulkadir Jaime Rajanot a [facility] - [place], [address] [place] [id number] 0 Phone: () - 05/04 CBC w/ auto diff RDW % 11.3 15.6 14.10 FINAL Abdulkadir Jaime Rajanot a [facility] - [place], [address] [place] [id number] 0 Phone: () - 08/03 CBC w/ auto diff WBC K/uL 3.0 8.9 4.3 FINAL Abdulkadir Jaime Rajanot a [facility] - [place], [address] [place] [id number] 0 Phone: () - 08/03 CBC w/ auto diff HGB g/dL 12.5 16.6 10.9 Low FINAL Abdulkadir Jaime Rajanot a [facility] - [place], [address] [place] [id number] 0 Phone: () - 08/03 CBC w/ auto diff PLT K/uL 113.0 364.0 201 FINAL Abdulkadir Jaime Rajanot a [facility] - [place], [address] [place] [id number] 0 Phone: () - 08/03 CBC w/ auto diff [place]et[place] # (ANC) K/uL 1.6 6.6 2.4 FINAL Abdulkadir Campbell a [facility] - [place], [address] [place] [id number] 0 Phone: () - 08/03 CBC w/ auto diff [place]et[place] % % 43.0 74.0 55.3 FINAL Abdulkadir Campbell a [facility] - [place], [address] [place] [id number] 0 Phone: () - 08/03 CBC w/ auto diff IG % % 0.0 0.5 0.2 FINAL Abdulkadir Campbell a [facility] - [place], [address] [place] [id number] 0 Phone: () - 08/03 CBC w/ auto diff IG # K/uL 0.0 0.03 0.01 FINAL Abdulkadir Campbell a [facility] - [place], [address] [place] [id number] 0 Phone: () - 08/03 CBC w/ auto diff LY % % 14.0 41.0 31.9 FINAL Abdulkadir Campbell a [facility] - [place], [address] [place] [id number] 0 Phone: () - 08/03 CBC w/ auto diff MO % % 6.0 15.0 10.2 FINAL Abdulkadir Campbell a [facility] - [place], [address] [place] [id number] 0 Phone: () - 08/03 CBC w/ auto diff EO % % 0.0 7.0 1.9 FINAL Abdulkadir Rajanot a [facility] - [place], [address] [place] [id number] 0 Phone: () - 08/03 CBC w/ auto diff BA % % 0.0 2.0 0.5 FINAL Abdulkadir [place]oval [place] [facility] [place], [address] [place] [id number] 0 Phone: () - 08/03 CBC w/ auto diff LY # K/uL 0.4 3.6 1.4 FINAL Abdulkadir Jaime Rajanot a [facility] - [place], [address] [place] [id number] 0 Phone: () - 08/03 CBC w/ auto diff MO # K/uL 0.2 1.3 0.4 FINAL Abdulkadir Jaime Rajanot a [facility] - [place], [address] [place] [id number] 0 Phone: () - 08/03 CBC w/ auto diff EO # K/uL 0.0 0.6 0.1 FINAL Abdulkadir Jaime Rajanot a [facility] - [place], [address] [place] [id number] 0 Phone: () - 08/03 CBC w/ auto diff BA # K/uL 0.0 0.2 0.0 FINAL Abdulkadir Jaime Rajanot a [facility] - [place], [address] [place] [id number] 0 Phone: () - 08/03 CBC w/ auto diff NRBC % #/100W BC 0.0 0.2 0.0 FINAL Abdulkadir Jaime Rajanot a [facility] - [place], [address] [place] [id number] 0 Phone: () - 08/03 CBC w/ auto diff RBC M/uL 4.2 5.6 3.69 Low FINAL Abdulkadir Jaime Rajanot a [facility] - [place], [address] [place] [id number] 0 Phone: () - 08/03 CBC w/ auto diff HCT % 39.0 49.0 34.2 Low FINAL Abdulkadir Jaime Rajanot a [facility] - [place], [address] [place] [id number] 0 Phone: () - 08/03 CBC w/ auto diff MCV fL 80.0 104.0 92.7 FINAL Abdulkadir weinberg [facility] - [place], [address] [place] [id number] 0 Phone: () - 08/03 CBC w/ auto diff MCH pg 26.0 35.0 29.5 FINAL Abdulkadir weinberg [facility] - [place], [address] [facility] [address] [place] [id number] 0 Phone: () - 08/03 CBC w/ auto diff MCHC g/dL 30.0 35.0 31.9 FINAL Abdulkadir weinberg [facility] - [place], [address] [facility] [address] [place] [id number] 0 Phone: () - 08/03 CBC w/ auto diff MPV fL 9.5 13.4 10.4 FINAL Abdulkadir weinberg [facility] - [place], [address] [facility] [address] [place] [id number] 0 Phone: () - 08/03 CBC w/ auto diff RDW % 11.3 15.6 15.30 FINAL Abdulkadir weinberg [facility] - [place], [address] [facility] [address] [place] [id number] 0 Phone: () - 08/03 PSA diagn ostic panel PSA ng/ml 0.0 4.0 PSA less than 0.05 Test performed at [facility] on a XGIMI Immunoass ay Analyzer that uses an immunoenz ymometric sandwich assay for analysis. Patient testing should not be performed using multiple methodunruly plaza due to analytica l variation seen between test methodunruly plaza. FINAL Abdulkadir weinberg [facility], [address] [facility] [address] [place] [address] [place] [id number] 0 Phone: () - 08/03 CMP Album in g/dL 3.2 5.2 3.9 FINAL [facility], [address] [facility] [address] [place] [id number] 0 Phone: () - 08/03 CMP Alkal ine phosp hatas e U/L 46.0 116.0 117 High FINAL [facility], [address] [place] [address] [id number] 0 Phone: () - 08/03 CMP ALT/S GPT U/L 7.0 40.0 14 FINAL [facility] [address] [place] [address] [id number] 0 Phone: () - 08/03 CMP AST/S GOT U/L 13.0 40.0 28 FINAL [facility] [address] [place] [address] [id number] 0 Phone: () - 08/03 CMP BUN mg/dL 9.0 23.0 16.0 FINAL [place] [address] [address] [facility] [address] [id number] 0 Phone: () - 08/03 CMP Calci um mg/dL 8.7 10.4 9.5 FINAL [facility], [address] [place] [address] [id number] 0 Phone: () - 08/03 CMP Chlor narinder mmol/L 96.0 114.0 109 FINAL [facility], [address] [facility] [address] [place] [address] [id number] 0 Phone: () - 08/03 CMP CO2 mmol/L 20.0 31.0 25 The expected total allowable error for CO2 is 5.6%. We have seen up to 10% differenc e in values if reported at the end of the 96 hour stability window. Please consider the clinical significa nce of a 2.0-2.5 mmol/L lower reported CO2 value if reported at the end of the 96 hour stability window. FINAL [facility], [facility] [address] [place] [address] [id number] 0 Phone: () - 08/03 CMP Creat inine mg/dL 0.5 1.2 1.13 FINAL [place] [address] [id number] 0 Phone: () - 08/03 CMP GFR estim ate ml/min /1.73m ^2 63.8 GFR is calculate d using the CKD-EPI equation. FINAL [place] [address] [id number] 0 Phone: () - 08/03 CMP Gluco se mg/dL 73.0 126.0 100 FINAL [place] [address] [id number] 0 Phone: () - 08/03 CMP Potas sium mmol/L 3.5 5.1 4.5 FINAL [place] [address] [id number] 0 Phone: () - 08/03 CMP Sodiu m mmol/L 136.0 145.0 144 FINAL [place] [address] [id number] 0 Phone: () - 08/03 CMP Bilir ubin, total mg/dL 0.3 1.2 0.3 FINAL [place] [address] [id number] 0 Phone: () - 08/03 CMP Total prote in g/dL 5.7 8.2 6.2 FINAL [place] [address] [id number] 0 Phone: () - 11/02 CMP Album in g/dL 3.2 5.2 4.0 FINAL [place] [address] [id number] 0 Phone: () - 11/02 CMP Alkal ine phosp hatas e U/L 46.0 116.0 106 FINAL [place] [address] [address] [facility] [address] [id number] 0 Phone: () - 11/02 CMP ALT/S GPT U/L 7.0 40.0 14 FINAL [facility], [address] [facility] [address] [facility] [id number] 0 Phone: () - 11/02 CMP AST/S GOT U/L 13.0 40.0 25 FINAL [facility] [address] [facility] [address] [id number] 0 Phone: () - 11/02 CMP BUN mg/dL 9.0 23.0 20.0 FINAL [facility] [address] [facility] [address] [id number] 0 Phone: () - 11/02 CMP Calci um mg/dL 8.7 10.4 9.5 FINAL [facility] [address] [facility] [address] [id number] 0 Phone: () - 11/02 CMP Chlor narinder mmol/L 96.0 114.0 109 FINAL [facility] [address] [facility] [address] [id number] 0 Phone: () - 11/02 CMP CO2 mmol/L 20.0 31.0 26 The expected total allowable error for CO2 is 5.6%. We have seen up to 10% differenc e in values if reported at the end of the 96 hour stability window. Please consider the clinical significa nce of a 2.0-2.5 mmol/L lower reported CO2 value if reported at the end of the 96 hour stability window. FINAL [facility], [facility] [address] [facility] [address] [place] [address] [id number] 0 Phone: () - 11/02 CMP Creat inine mg/dL 0.5 1.2 1.07 FINAL [facility], [address] [place] [address] [id number] 0 Phone: () - 11/02 CMP GFR estim ate ml/min /1.73m ^2 68.0 GFR is calculate d using the CKD-EPI equation. FINAL [facility], [address] [facility] [address] [place] [address] [id number] 0 Phone: () - 11/02 CMP Gluco se mg/dL 73.0 126.0 84 FINAL [facility], [address] [facility] [address] [facility] [id number] 0 Phone: () - 11/02 CMP Potas sium mmol/L 3.5 5.1 4.0 FINAL [facility] [address] [facility] [address] [place] [address] [id number] 0 Phone: () - 11/02 CMP Sodiu m mmol/L 136.0 145.0 145 FINAL [facility] [address] [id number] 0 Phone: () - 11/02 CMP Bilir ubin, total mg/dL 0.3 1.2 0.4 FINAL [place] [address] [id number] 0 Phone: () - 11/02 CMP Total prote in g/dL 5.7 8.2 6.3 FINAL [place] [address] [id number] 0 Phone: () - 11/02 PSA diagn ostic panel PSA ng/ml 0.0 4.0 PSA less than 0.05 Test performed at [facility] on a [employer]er 2000 Immunoass ay Analyzer that uses an immunoenz ymometric sandwich assay for analysis. Patient testing should not be performed using multiple methodolo girandee due to analytica l variation seen between test methodolo mela. FINAL [place] [address] [address] [facility] [address] [place] [address] [id number] 0 Phone: () - 11/02 CBC w/ auto diff WBC K/uL 3.[address] [facility], [address] [facility] [id number] 0 Phone: () - 11/02 CBC w/ auto diff HGB g/dL 12.5 16.6 9.7 Low FINAL Abdulkadir Jaime Rajanot [facility] - [place], [address] [place] [id number] 0 Phone: () - 11/02 CBC w/ auto diff PLT K/uL 113.0 364.0 244 FINAL Abdulkadir Jaime Campbell [facility] - [place], [address] [place] [id number] 0 Phone: () - 11/02 CBC w/ auto diff [place] # (ANC) K/uL 1.6 6.6 2.1 FINAL Abdulkadir Jaime Campbell [facility] - [place], [address] [place] [id number] 0 Phone: () - 11/02 CBC w/ auto diff [place] % % 43.0 74.0 44.9 FINAL Abdulkadir Jaime Campbell [facility] - [place], [address] [place] [id number] 0 Phone: () - 11/02 CBC w/ auto diff IG % % 0.0 0.5 0.2 FINAL Abdulkadir Jaime Campbell [facility] - [place], [address] [facility] [address] [place] [id number] 0 Phone: () - 11/02 CBC w/ auto diff IG # K/uL 0.0 0.03 0.01 FINAL Abdulkadir Jaime Rajanot a [facility] - [place], [address] [place] [id number] 0 Phone: () - 11/02 CBC w/ auto diff LY % % 14.0 41.0 37.5 FINAL Abdulkadir Jaime Rajanot a [facility] - [place], [address] [place] [id number] 0 Phone: () - 11/02 CBC w/ auto diff MO % % 6.0 15.0 12.8 FINAL Abdulkadir Jaime Rajanot a [facility] - [place], [address] [place] [id number] 0 Phone: () - 11/02 CBC w/ auto diff EO % % 0.0 7.0 4.0 FINAL Abdulkadir Jaime Rajanot [facility] - [place], [address] [place] [id number] 0 Phone: () - 11/02 CBC w/ auto diff BA % % 0.0 2.0 0.6 FINAL Abdulkadir Jaime Rajanot [facility] - [place], [address] [place] [id number] 0 Phone: () - 11/02 CBC w/ auto diff LY # K/uL 0.4 3.6 1.8 FINAL Abdulkadir Jaime Rajanot [facility] - [place], [address] [place] [id number] 0 Phone: () - 11/02 CBC w/ auto diff MO # K/uL 0.2 1.3 0.6 FINAL Abdulkadir Jaime Rajanot [facility] - [place], [address] [place] [id number] 0 Phone: () - 11/02 CBC w/ auto diff EO # K/uL 0.0 0.6 0.2 FINAL Abdulkadir Jaime Raj[facility]ot [facility] - [place], [address] [place] [id number] 0 Phone: () - 11/02 CBC w/ auto diff BA # K/uL 0.0 0.2 0.0 FINAL Abdulkadir Jaime [facility]ot [facility] - [place], [address] [place] [id number] 0 Phone: () - 11/02 CBC w/ auto diff NRBC % #/100W BC 0.0 0.2 0.0 FINAL Abdulkadir Jaime [facility]ot [facility] - [place], [address] [place] [id number] 0 Phone: () - 11/02 CBC w/ auto diff RBC M/uL 4.2 5.6 3.50 Low FINAL Abdulkadir Jaime [facility]ot [facility] - [place], [address] [place] [id number] 0 Phone: () - 11/02 CBC w/ auto diff HCT % 39.0 49.0 30.8 Low FINAL Abdulkadir Jaime Raj[facility]ot [facility] - [place], [address] [place] [id number] 0 Phone: () - 11/02 CBC w/ auto diff MCV fL 80.0 104.0 88.0 FINAL Abdulkadir Jaime Rajanot [facility] - [place], [address] [facility] [address] [place] [id number] 0 Phone: () - 11/02 CBC w/ auto diff MCH pg 26.0 35.0 27.7 FINAL Abdulkadir Sandoval [facility] [facility] - [place], [address] [facility] [address] [place] [id number] 0 Phone: () - 11/02 CBC w/ auto diff MCHC g/dL 30.0 35.0 31.5 FINAL Abdulkadir Jaime Rajanot a [facility] - [place], [address] [facility] [address] [place] [phone] 0 Phone: () - 11/02 CBC w/ auto diff MPV fL 9.5 13.4 10.3 FINAL Abdulkadir Sandovalbrody [facility]an[facility] a [facility] - [place], [address] [facility] [place] [id number] 0 Phone: () - 11/02 CBC w/ auto diff RDW % 11.3 15.6 14.50 FINAL Abdulkadir Jaime [facility] - [place], [address] [place] [id number] 0 Phone: () - 11/08 Di tin panel Di tin NG/ML 27.0 300.0 7.90 Low FINAL Abdulkadir Sandoval [facility] [place], [address] [facility] [id number] 0 Phone: () - 11/08 Iron profi le TIBC ug/dL 250.0 425.0 385 FINAL [facility], [address] [place] [address] [id number] 0 Phone: () - 11/08 Iron profi le Iron ug/dL 50.0 175.0 42 Low FINAL [facility], [address] [place] [address] [id number] 0 Phone: () - 11/08 Iron profi le Unbou nd iron capac ity ug/dL 75.0 410.0 343 FINAL [facility], [address] [place] [address] [id number] 0 Phone: () - 11/08 Iron profi le Iron, % satur ation % 20.0 55.0 11 Low FINAL [facility], [address] [place] [address] [id number] 0 Phone: () - 11/08 Immun ofixa tion, serum w/ quant IgG/A /M panel Immun ofixa tion, serum , inter preta tion No monoclo nal peaks detecte d. Interpr eted and signed by Jimenez underwood MD on 023 FINAL [facility], [address] [facility] [address] [place] [address] [id number] 0 Phone: () - 11/08 Folat e panel Folat e, serum ng/mL 3.0 16.0 Folate greater than 20 FINAL [facility], [address] [place] [address] [id number] 0 Phone: () - 11/08 Vitam in B12 panel Vitam in B12 pg/mL 230.0 1050.0 879 Test performed at [facility]. [address] [place] [address], [place] [address] FINAL [facility], [address] [place] [address] [id number] 0 Phone: () - 11/08 WBC K/uL 3.0 8.9 4.5 FINAL Abdulkadir Jaime [facility] - [place], [address] [place] [id number] 0 Phone: () - 11/08 HGB g/dL 12.5 16.6 9.7 Low FINAL Abdulkadir Jaime [place] [facility] [place], [address] [place] [id number] 0 Phone: () - 11/08 PLT K/uL 113.0 364.0 225 FINAL Abdulkadir Jaime [facility] - [place], [address] [place] [id number] 0 Phone: () - 11/08 Cayetano % % 43.0 74.0 44.8 FINAL Abdulkadir Jaime [facility] - [place], [address] [place] [id number] 0 Phone: () - 11/08 Cayet[place] # (ANC) K/uL 1.6 6.6 2.0 FINAL Abdulkadir Jaime [facility] - [place], [address] [place] [id number] 0 Phone: () - 11/08 IG % % 0.0 0.5 0.2 FINAL Abdulkadir Jaime [facility] - [place], [address] [place] [id number] 0 Phone: () - 11/08 IG # K/uL 0.0 0.03 0.01 FINAL Abdulkadir Jaime [place] [facility] [place], [address] [place] [id number] 0 Phone: () - 11/08 LY % % 14.0 41.0 37.8 FINAL Abdulkadir Jaime [place] [facility] [place], [address] [place] [id number] 0 Phone: () - 11/08 MO % % 6.0 15.0 13.0 FINAL Abdulkadirshell [facility] a [facility] - [place], [address] [place] [id number] 0 Phone: () - 11/08 EO % % 0.0 7.0 3.8 FINAL Abdulkadirshell [facility] - [place], [address] [place] [id number] 0 Phone: () - 11/08 BA % % 0.0 2.0 0.4 FINAL Abdulkadir Jaime [facility] - [place], [address] [place] [id number] 0 Phone: () - 11/08 LY # K/uL 0.4 3.6 1.7 FINAL Abdulkadirshell [facility] - [place], [address] [place] [id number] 0 Phone: () - 11/08 MO # K/uL 0.2 1.3 0.6 FINAL Abdulkadir Jaime [facility] - [place], [address] [place] [id number] 0 Phone: () - 11/08 EO # K/uL 0.0 0.6 0.2 FINAL Abdulkadir Jaime [facility] - [place], [address] [place] [id number] 0 Phone: () - 11/08 BA # K/uL 0.0 0.2 0.0 FINAL Abdulkadir Jaime [facility] - [place], [address] [place] [id number] 0 Phone: () - 11/08 NRBC % #/100W BC 0.0 0.2 0.0 FINAL Abdulkadirshell [facility] a [facility] - [place], [address] [place] [id number] 0 Phone: () - 11/08 RBC M/uL 4.2 5.6 3.57 Low FINAL Abdulkadir Jaime [facility] - [place], [address] [place] [id number] 0 Phone: () - 11/08 HCT % 39.0 49.0 31.0 Low FINAL Abdulkadir Jaime [facility] - [place], [address] [place] [id number] 0 Phone: () - 11/08 MCV fL 80.0 104.0 86.8 FINAL Abdulkadir Jaime [facility] - [place], [address] [place] [id number] 0 Phone: () - 11/08 MCH pg 26.0 35.0 27.2 FINAL Abdulkadir Jaime [facility] - [place], [address] [place] [id number] 0 Phone: () - 11/08 MCHC g/dL 30.0 35.0 31.3 FINAL Abdulkadir Jaime [facility] - [place], [address] [place] [id number] 0 Phone: () - 11/08 MPV fL 9.5 13.4 10.6 FINAL Abdulkadir Jaime [facility] - [place], [address] [place] [id number] 0 Phone: () - 11/08 RDW % 11.3 15.6 14.60 FINAL Abdulkadir Jaime [facility] [place], [address] [place] [id number] 0 Phone: () - 11/08 Retic ulocy te, absol cintia M/uL 0.01 0.1 0.07 FINAL Abdulkadir Jaime [facility] - [place], [address] [place] [id number] 0 Phone: () - 11/08 Retic ulocy te count % 0.2 1.7 2.[address] [facility] Jaime Campbell a On[facility] - [place], [address] [facility] [address] [place] [phone] 0 Phone: () - 11/08 Immat ure retic ulocy te fract ion, % % 0.0 18.8 23.[address] [facility] Jaime [facility]an[facility] a [facility] - [place], [address] [place] [id number] 0 Phone: () - 11/08 Retic ulocy te cellu lar hemog lobin pg 28.0 37.0 [address] [facility] Jaime Rajanot a [facility] - [place], [address] [address] [place] [id number] 0 Phone: () - 11/08 Immun oglob ulin measu remen t IgG, quant mg/dL 610.0 1616.0 649.53 Test performed at [facility] on a [facility] [address] Optilite Analyzer that uses a turbidime tric method for analysis. Patient testing should not be performed using multiple methodolo gies due to analytica l variation seen between test methodolo gies. FINAL [facility] Jaime Rajan a [facility], [facility] [address] [facility] [address] [place] [address] [id number] 0 Phone: () - 11/08 Immun oglob ulin measu remen t IgA, quant mg/dL 61.0 348.0 214.98 Test performed at [facility] on a [facility] [address] Optilite Analyzer that uses a turbidime tric method for analysis. Patient testing should not be performed using multiple methodolo gies due to analytica l variation seen between test methodolo gies. FINAL [facility] Jaime Vovici a [facility], [address] [facility] [address] [place] [address] [id number] 0 Phone: () - 11/08 Immun oglob ulin measu remen t IgM, quant mg/dL 35.0 242.0 43.44 Test performed at [facility] on a [employer] Optilite Analyzer that uses a turbidime tric method for analysis. Patient testing should not be performed using multiple methodolo gies due to analytica l variation seen between test methodolo gies. FINAL Abdulkadir Campbell a [facility] [place], [address] [facility] [id number] 0 Phone: () - 11/08 Path perip heral blood slide revie w panel Patho logy/ Cytol ogy Morph ology SEE RESULTS BELOW CASE REPORTSpe cial Hematolog y Report Case: [id number] ing Provider: Abdulkadir Sandoval MBBS Collected :11/08/20 23 [id number] ing Location: [facility] Received: 3 [id number] logist: Blake Mahoney MDSpecime n: BloodFINA L DIAGNOSIS PERIPHERA L BLOOD:Per sistent mild hypochrom ic, normocyti c anemiaEle ctronical ly signed by Blake Mahoney MD on 3 at 11:32 AMCOMMENT The specific etiology of the anemia is not apparent from the blood smearfind ings. The morpholog ic features are not suggestiv e of hemolysis . No definitem yelodyspl astic features are seen.Norm ocytic anemia may be associate d with a variety of condition s, including anemia of chronic disease, hypothyro idism, active bleeding, early irondefic iency, or medicatio n effect. The presence of hypochrom shante suggests anelement of early iron deficienc y and/or anemia of chronic disease.C LINICAL INFORMATI ONPatient has a history of metastati c prostate cancer with metastasi s to bones andlungs, as well as anemia of chronic disease.C BC AND DIFFERENT IALHEMATO LOGY PARAMETER STested at: [facility] eRESULTS EXPECTED VALUESWBC : 4.5 4.5-11x10 00/cumm DECREASED RBC: 3.57 4.30-5.90 mil/cummD ECREASEDH GB: 9.7 13.5-17.5 gm/di DECREASED HCT: 31 37-53% DECREASED MCV: 86.8 80-100 fl NORMOCYTI CMCH: 27.2 26-34 pgMCHC: 31.3 32-36 gm/dl HYPOCHROM ICRDW: 14.6 11.5-15.5 %PLT: 225 140-440x1 000/uLMPV : 10.6 6.5-11 flRetic: 2.0 0.5-1.5% ELEVATEDD ifferenti alAbsolut e (%) Expected (%)(x10*9 /L) (x10*9/L) Neutrophi ls: 2 (44.7) 1.7-7.0 (42-72%)L ymphocyte s: 1.69 (37.8) 0.9-2.9 (20-44%)M onocytes: 0.58 (13) <0.9 (0-11%)Eo sinophils : 0.17 (3.8) <0.5 (0-2%)Bas ophils: 0.02 (.4) <0.3 (<3.0%)Im m Grans: 0.01 (.2) <0.3 (0-3%)(Me tas, Myelos,Pr os)MICROS COPIC DESCRIPTI ONThe final diagnosis is based on microscop ic examinati on of an appropria telystain ed blood smear.ADD ITIONAL INFORMATI ONInterpr eted at [facility], [facility] - [address], [place] [address] FINAL Abdulkadir Sandoval 01/28 CBC w/ auto diff WBC K/uL 3.0 8.9 4.8 FINAL Abdulkadir Jaime Rajanot a [facility] - [place], [address] [place] [id number] 0 Phone: () - 01/28 CBC w/ auto diff HGB g/dL 12.5 16.6 12.6 FINAL Abdulkadir Jaime [facility] - [place], [address] [place] [id number] 0 Phone: () - 01/28 CBC w/ auto diff PLT K/uL 113.0 364.0 155 FINAL Abdulkadir Jaime [facility] - [place], [address] [place] [id number] 0 Phone: () - 01/28 CBC w/ auto diff Cayet[place] # (ANC) K/uL 1.6 6.6 2.7 FINAL Abdulkadir Jaime [facility] a [facility] - [place], [address] [place] [id number] 0 Phone: () - 01/28 CBC w/ auto diff Cayet[place] % % 43.0 74.0 54.7 FINAL Abdulkadir Jaime [facility] a [facility] - [place], [address] [place] [id number] 0 Phone: () - 01/28 CBC w/ auto diff IG % % 0.0 0.5 0.2 FINAL Abdulkadir Jaime [facility] a [facility] - [place], [address] [place] [id number] 0 Phone: () - 01/28 CBC w/ auto diff IG # K/uL 0.0 0.03 0.01 FINAL Abdulkadir Jaime [facility] a [facility] - [place], [address] [place] [id number] 0 Phone: () - 01/28 CBC w/ auto diff LY % % 14.0 41.0 33.1 FINAL Abdulkadir Jaime [facility] a [facility] - [place], [address] [place] [id number] 0 Phone: () - 01/28 CBC w/ auto diff MO % % 6.0 15.0 8.5 FINAL Abdulkadir Jaime [facility] a [facility] - [place], [address] [place] [id number] 0 Phone: () - 01/28 CBC w/ auto diff EO % % 0.0 7.0 3.1 FINAL Abdulkadir Jaime [facility] a [facility] - [place], [address] [place] [id number] 0 Phone: () - 01/28 CBC w/ auto diff BA % % 0.0 2.0 0.4 FINAL Abdulkadir Jaime [facility] a [facility] - [place], [address] [place] [id number] 0 Phone: () - 01/28 CBC w/ auto diff LY # K/uL 0.4 3.6 1.6 FINAL Abdulkadir Jaime [facility] a [facility] - [place], [address] [place] [id number] 0 Phone: () - 01/28 CBC w/ auto diff MO # K/uL 0.2 1.3 0.4 FINAL Abdulkadir Jaime [facility] - [place], [address] [place] [id number] 0 Phone: () - 01/28 CBC w/ auto diff EO # K/uL 0.0 0.6 0.2 FINAL Abdulkadir Jaime [facility] - [place], [address] [place] [id number] 0 Phone: () - 01/28 CBC w/ auto diff BA # K/uL 0.0 0.2 0.0 FINAL Abdulkadir Jaime Campbell a [facility] - [place], [address] [place] [id number] 0 Phone: () - 01/28 CBC w/ auto diff NRBC % #/100W BC 0.0 0.2 0.0 FINAL Abdulkadir Jaime [facility] - [place], [address] [place] [id number] 0 Phone: () - 01/28 CBC w/ auto diff RBC M/uL 4.2 5.6 4.25 FINAL Abdulkadir Jaime [facility] - [place], [address] [place] [id number] 0 Phone: () - 01/28 CBC w/ auto diff HCT % 39.0 49.0 39.6 FINAL Abdulkadir Jaime [facility] - [place], [address] [place] [id number] 0 Phone: () - 01/28 CBC w/ auto diff MCV fL 80.0 104.0 93.2 FINAL Abdulkadir Jaime Campbell a [facility] - [place], [address] [place] [id number] 0 Phone: () - 01/28 CBC w/ auto diff MCH pg 26.0 35.0 29.6 FINAL Abdulkadirshell Campbell a [facility] - [place], [address] [place] [id number] 0 Phone: () - 01/28 CBC w/ auto diff MCHC g/dL 30.0 35.0 31.8 FINAL Abdulkadir Jaime [facility] - [place], [address] [place] [id number] 0 Phone: () - 01/28 CBC w/ auto diff MPV fL 9.5 13.4 10.5 FINAL Abdulkadirshell weinberg [facility] - [place], [address] [place] [id number] 0 Phone: () - 01/28 CBC w/ auto diff RDW % 11.3 15.6 15.90 High FINAL Abdulkadirshell weinberg [facility] - [place], [address] [place] [id number] 0 Phone: () - 01/28 PSA diagn ostic panel PSA ng/mL 0.0 3.9 <0.06 Test performed at [facility] on a [employer] Immunoass ay Analyzer that uses an immunomet yuko immunoass ay technique . Patient testing should not be performed using multiple methodunruly girandee due to analytica l variation seen between test methodunruly plaza. FINAL Abdulkadir Jaime * [facility] [place], [address] [facility] [place] [id number] 0 01/28 CMP Album in g/dL 3.5 5.0 3.8 FINAL Abdulkadir Jaime * [facility] [place], [address] [facility] [place] [id number] 0 01/28 CMP Alkal ine phosp hatas e U/L 36.0 125.0 105 FINAL Abdulkadir Sandoval * [facility], [address] [facility] [address] [facility] [id number] 0 01/28 CMP ALT/S GPT U/L 0.0 49.0 23 FINAL Abdulkadir Sandoval * [facility], [facility] [address] [id number] 0 01/28 CMP AST/S GOT U/L 17.0 59.0 36 FINAL Abdulkadir Sandoval * [facility], [facility] [address] [place] [address] [id number] 0 01/28 CMP BUN mg/dL 9.0 20.0 23.0 High FINAL Abdulkadir Sandoval * [facility], [facility] [address] [id number] 01/28 CMP Calci um mg/dL 8.4 10.2 9.8 FINAL Abdulkadir Sandoval * [facility], [facility] [address] [place] [address] [id number] 0 01/28 CMP Chlor narinder mmol/L 96.0 107.0 110 High FINAL Abdulkadir Sandoval * [facility], [facility] [address] [place] [address] [id number] 0 01/28 CMP CO2 mmol/L 22.0 30.0 28 The expected total allowable error for CO2 is 5.6%. We have seen up to 10% differenc e in values if reported at the end of the 96 hour stability window. Please consider the clinical significa nce of a 2.0-2.5 mmol/L lower reported CO2 value if reported at the end of the 96 hour stability window. FINAL Abdulkadir Sandoval * [facility], [address] [id number] 01/28 CMP Creat inine mg/dL 0.66 1.25 1.00 FINAL Abdulkadir Sandoval * [facility], [address] [id number] 0 01/28 CMP GFR estim ate ml/min /1.73m ^2 73.6 GFR is calculate d using the CKD-EPI equation. FINAL Abdulkadir Sandoval * [facility], [address] [id number] 0 01/28 CMP Gluco se mg/dL 74.0 100.0 104 High FINAL Abdulkadir Sandoval * [facility], [facility] [address] [id number] 0 01/28 CMP Potas sium mmol/L 3.5 5.1 4.1 FINAL Abdulkadir Sandoval * [facility], [address] [id number] 0 01/28 CMP Sodiu m mmol/L 137.0 145.0 141 FINAL Abdulkadir Sandoval * [facility], [address] [id number] 0 01/28 CMP Bilir ubin, total mg/dL 0.2 1.3 0.7 FINAL Abdulkadir Sandoval * [facility], [address] [id number] 0 01/28 CMP Total prote in g/dL 6.3 8.2 6.5 FINAL Abdulkadir Sandoval * [facility], [address] [id number] 05/16 CBC w/ auto diff WBC K/uL 3.0 8.9 5.4 FINAL Abdulkadir weinberg [facility] [place], [address] [place] [id number] 0 Phone: () - 05/16 CBC w/ auto diff HGB g/dL 12.5 16.6 12.6 FINAL Abdulkadirshell weinberg [facility] - [place], [address] [place] [id number] 0 Phone: () - 05/16 CBC w/ auto diff PLT K/uL 113.0 364.0 222 FINAL Abdulkadirshell weinberg [facility] - [place], [address] [place] [id number] 0 Phone: () - 05/16 CBC w/ auto diff Cayet[place] # (ANC) K/uL 1.6 6.6 3.1 FINAL Abdulkadir weinberg [facility] - [place], [address] [place] [id number] 0 Phone: () - 05/16 CBC w/ auto diff [place]et[place] % % 43.0 74.0 56.8 FINAL Abdulkadir weinberg [facility] - [place], [address] [place] [id number] 0 Phone: () - 05/16 CBC w/ auto diff IG % % 0.0 0.5 0.2 FINAL Abdulkadir weinberg [facility] - [place], [address] [place] [id number] 0 Phone: () - 05/16 CBC w/ auto diff IG # K/uL 0.0 0.03 0.01 FINAL Abdulkadir Campbell a [facility] [place], [address] [place] [id number] 0 Phone: () - 05/16 CBC w/ auto diff LY % % 14.0 41.0 32.5 FINAL Abdulkadir Sandoval [place] [facility] [place], [address] [place] [id number] 0 Phone: () - 05/16 CBC w/ auto diff MO % % 6.0 15.0 7.5 FINAL Abdulkadir Jaime [facility] [place], [address] [place] [id number] 0 Phone: () - 05/16 CBC w/ auto diff EO % % 0.0 7.0 2.4 FINAL Abdulkadir Jaime [facility] [place], [address] [place] [id number] 0 Phone: () - 05/16 CBC w/ auto diff BA % % 0.0 2.0 0.6 FINAL Abdulkadir Jaime [facility] [place], [address] [place] [id number] 0 Phone: () - 05/16 CBC w/ auto diff LY # K/uL 0.4 3.6 1.7 FINAL Abdulkadir Jaime [facility] [place], [address] [place] [id number] 0 Phone: () - 05/16 CBC w/ auto diff MO # K/uL 0.2 1.3 0.4 FINAL Abdulkadir Jaime [facility] [place], [address] [place] [id number] 0 Phone: () - 05/16 CBC w/ auto diff EO # K/uL 0.0 0.6 0.1 FINAL Abdulkadir Jaime [facility] [place], [address] [place] [id number] 0 Phone: () - 05/16 CBC w/ auto diff BA # K/uL 0.0 0.2 0.0 FINAL Abdulkadir Jaime [facility] [place], [address] [place] [id number] 0 Phone: () - 05/16 CBC w/ auto diff NRBC % #/100W BC 0.0 0.2 0.0 FINAL Abdulkadir Jaime Campbell a [facility] - [place], [address] [facility] [address] [place] [id number] 0 Phone: () - 05/16 CBC w/ auto diff RBC M/uL 4.2 5.6 3.94 Low FINAL Abdulkadir Jaime [facility] - [place], [address] [facility] [address] [place] [id number] 0 Phone: () - 05/16 CBC w/ auto diff HCT % 39.0 49.0 38.5 Low FINAL Abdulkadir Jaime [facility] [place], [address] [facility] [address] [place] [id number] 0 Phone: () - 05/16 CBC w/ auto diff MCV fL 80.0 104.0 97.7 FINAL Abdulkadir Jaime Campbell [facility] - [place], [address] [facility] [address] [place] [id number] 0 Phone: () - 05/16 CBC w/ auto diff MCH pg 26.0 35.0 32.0 FINAL Abdulkadir Jaime [facility] [place], [address] [facility] [address] [place] [id number] 0 Phone: () - 05/16 CBC w/ auto diff MCHC g/dL 30.0 35.0 32.7 FINAL Abdulkadir Jaime Campbell [facility] - [place], [address] [facility] [address] [place] [id number] 0 Phone: () - 05/16 CBC w/ auto diff MPV fL 9.5 13.4 10.3 FINAL Abdulkdair Jaime Campbell a [facility] - [place], [address] [facility] [address] [place] [id number] 0 Phone: () - 05/16 CBC w/ auto diff RDW % 11.3 15.6 13.10 FINAL Abdulkadir Jaime Campbell a [facility] - [place], [address] [facility] [place] [id number] 0 Phone: () - 05/16 CMP Album in g/dL 3.5 5.0 4.2 FINAL Abdulkadir Sandoval * [place] [facility], [address] [facility] [id number] 0 05/16 CMP Alkal ine phosp hatas e U/L 36.0 125.0 104 FINAL Abdulkadir Sandoval * [place] [facility], [address] [facility] [id number] 0 05/16 CMP ALT/S GPT U/L 0.0 49.0 19 FINAL Abdulkadir Sandoval * [place] [facility], [address] [id number] 0 05/16 CMP AST/S GOT U/L 17.0 59.0 39 FINAL Abdulkadir Sandoval * [place] [facility], [address] [id number] 0 05/16 CMP BUN mg/dL 9.0 20.0 23.0 High FINAL Abdulkadir Sandoval * [place] [facility], [address] [facility] [id number] 0 05/16 CMP Calci um mg/dL 8.4 10.2 9.3 FINAL Abdulkadir Sandoval * [place] [facility], [address] [id number] 0 05/16 CMP Chlor narinder mmol/L 96.0 107.0 104 FINAL Abdulkadir Sandoval * [place] [facility], [address] [facility] [id number] 0 05/16 CMP CO2 mmol/L 22.0 30.0 25 The expected total allowable error for CO2 is 5.6%. We have seen up to 10% differenc e in values if reported at the end of the 96 hour stability window. Please consider the clinical significa nce of a 2.0-2.5 mmol/L lower reported CO2 value if reported at the end of the 96 hour stability window. FINAL Abdulkadir Jaime * [facility], [address] [id number] 05/16 CMP Creat inine mg/dL 0.66 1.25 1.00 FINAL Abdulkadir Jaime * [facility], [facility] [address] [id number] 05/16 CMP GFR estim ate ml/min /1.73m ^2 73.5 GFR is calculate d using the CKD-EPI equation. FINAL Abdulkadir Jaime Friend [facility], [facility] [address] [id number] 0 05/16 CMP Gluco se mg/dL 74.0 100.0 71 Low FINAL Abdulkadir Jaime Friend [facility], [facility] [address] [id number] 0 05/16 CMP Potas sium mmol/L 3.5 5.1 4.2 FINAL Abdulkadir Jaime Friend [facility], [facility] [address] [id number] 0 05/16 CMP Sodiu m mmol/L 137.0 145.0 141 FINAL Abdulkadir Jaime * [facility], [facility] [address] [id number] 0 05/16 CMP Bilir ubin, total mg/dL 0.2 1.3 0.3 FINAL Abdulkadir Sandoval * [facility], [address] [id number] 0 05/16 CMP Total prote in g/dL 6.3 8.2 6.7 FINAL Abdulkadir Sandoval * [facility], [address] [id number] 0 05/16 PSA diagn ostic panel PSA ng/mL 0.0 3.9 0.08 Test performed at [facility] on a [facility] [employer] Immuno[employer] ay Analyzer that uses an immunomet yuko immunoass ay technique . Patient testing should not be performed using multiple methodolo gies due to analytica l variation seen between test methodolo gies. FINAL Abdulkadir Sandoval * [facility], [address] [id number] 0 05/16 Di tin panel Di tin ng/mL 17.9 464.0 21.90 FINAL Abdulkadir Sandoval * [facility], [address] [id number] 0 08/05 Di tin panel Di tin ng/mL 17.9 464.0 20.90 FINAL Abdulkadir Sandoval * [facility], [address] [id number] 08/05 PSA diagn ostic panel PSA ng/ml 0.0 3.9 <0.06 Repeate d Test performed at [facility] on [facility]600 Immunoass ay Analyzer that uses an immunomet yuko immunoass ay technique . Patient testing should not be performed using multiple methodolo gies due to analytica l variation seen between test methodolo gies. FINAL Abdulkadir Sandoval * [facility], [address] [id number] 0 08/05 CMP Album in g/dL 3.5 5.0 3.8 FINAL Abdulkadir Sandoval * [facility], [address] [id number] 0 08/05 CMP Alkal ine phosp hatas e U/L 36.0 125.0 127 High FINAL Abdulkadir Sandoval * [facility], [address] [id number] 0 08/05 CMP ALT/S GPT U/L 0.0 49.0 18 FINAL Abdulkadir Sandoval * [facility], [address] [id number] 0 08/05 CMP AST/S GOT U/L 17.0 59.0 32 FINAL Abdulkadir Sandoval * [facility], [address] [id number] 0 08/05 CMP BUN mg/dL 9.0 20.0 27.0 High FINAL Abdulkadir Sandoval * [facility], [address] [id number] 08/05 CMP Calci um mg/dL 8.4 10.2 9.5 FINAL Abdulkadir Sandoval * [facility], [address] [id number] 08/05 CMP Chlor narinder mmol/L 96.0 107.0 108 High FINAL Abdulkadir Sandoval * [facility], [address] [id number] 0 08/05 CMP CO2 mmol/L 22.0 30.0 23 The expected total allowable error for CO2 is 5.6%. We have seen up to 10% differenc e in values if reported at the end of the 96 hour stability window. Please consider the clinical significa nce of a 2.0-2.5 mmol/L lower reported CO2 value if reported at the end of the 96 hour stability window. FINAL Abdulkadir Sandoval * [facility], [address] [id number] 0 08/05 CMP Creat inine mg/dL 0.66 1.25 1.00 FINAL Abdulkadir Jaime * [facility], [facility] [address] [place] [address] [id number] 0 08/05 CMP GFR estim ate ml/min /1.73m ^2 73.4 GFR is calculate d using the CKD-EPI equation. FINAL Abdulkadir Jaime * [facility], [facility] [address] [id number] 0 08/05 CMP Gluco se mg/dL 74.0 100.0 119 High FINAL Abdulkadir Jaime * [facility], [facility] [address] [place] [address] [id number] 0 08/05 CMP Potas sium mmol/L 3.5 5.1 3.8 FINAL Abdulkadir Jaime * [facility], [facility] [address] [id number] 08/05 CMP Sodiu m mmol/L 137.0 145.0 140 FINAL Abdulkadir Jaime * [facility], [facility] [address] [id number] 0 08/05 CMP Bilir ubin, total mg/dL 0.2 1.3 0.4 FINAL Abdulkadir Sandoval * [facility], [address] [facility] [place] [id number] 0 08/05 CMP Total prote in g/dL 6.3 8.2 6.6 FINAL Abdulkadir Jaime * [facility] [place], [address] [facility] [place] [id number] 0 08/05 CBC w/ auto diff WBC K/uL 3.0 8.9 5.6 FINAL Abdulkadir Jaime [facility] [place], [address] [place] [id number] 0 Phone: () - 08/05 CBC w/ auto diff HGB g/dL 12.5 16.6 10.9 Low FINAL Abdulkadir Jaime [facility] [place], [address] [place] [id number] 0 Phone: () - 08/05 CBC w/ auto diff PLT K/uL 113.0 364.0 192 FINAL Abdulkadir Jaime [facility] [place], [address] [place] [id number] 0 Phone: () - 08/05 CBC w/ auto diff [place] # (ANC) K/uL 1.6 6.6 3.3 FINAL Abdulkadir Jaime [facility] [place], [address] [place] [id number] 0 Phone: () - 08/05 CBC w/ auto diff [place] % % 43.0 74.0 58.6 FINAL Abdulkadir Jaime [facility] [place], [address] [place] [id number] 0 Phone: () - 08/05 CBC w/ auto diff IG % % 0.0 0.5 0.2 FINAL Abdulkadir Jaime [facility] [place], [address] [place] [id number] 0 Phone: () - 08/05 CBC w/ auto diff IG # K/uL 0.0 0.03 0.01 FINAL Abdulkadir Jaime [facility] [place], [address] [place] [id number] 0 Phone: () - 08/05 CBC w/ auto diff LY % % 14.0 41.0 22.7 FINAL Abdulkadir Jaime [facility] [place], [address] [place] [id number] 0 Phone: () - 08/05 CBC w/ auto diff MO % % 6.0 15.0 9.4 FINAL Abdulkadir Jaime [facility] [place], [address] [place] [id number] 0 Phone: () - 08/05 CBC w/ auto diff EO % % 0.0 7.0 8.6 High FINAL Abdulkadirshell [facility] [place], [address] [place] [id number] 0 Phone: () - 08/05 CBC w/ auto diff BA % % 0.0 2.0 0.5 FINAL Abdulkadir Jaime [facility] [place], [address] [place] [id number] 0 Phone: () - 08/05 CBC w/ auto diff LY # K/uL 0.4 3.6 1.3 FINAL Abdulkadir Jaime [facility] [place], [address] [place] [id number] 0 Phone: () - 08/05 CBC w/ auto diff MO # K/uL 0.2 1.3 0.5 FINAL Abdulkadir Jaime [facility] [place], [address] [place] [id number] 0 Phone: () - 08/05 CBC w/ auto diff EO # K/uL 0.0 0.6 0.5 FINAL Abdulkadir Jaime [facility] [place], [address] [place] [id number] 0 Phone: () - 08/05 CBC w/ auto diff BA # K/uL 0.0 0.2 0.0 FINAL Abdulkadir Jaime [facility] [place], [address] [place] [id number] 0 Phone: () - 08/05 CBC w/ auto diff NRBC % #/100W BC 0.0 0.2 0.0 FINAL Abdulkadir Jaime [facility] [place], [address] [place] [id number] 0 Phone: () - 08/05 CBC w/ auto diff RBC M/uL 4.2 5.6 3.43 Low FINAL Abdulkadir Jaime [facility] [place], [address] [place] [id number] 0 Phone: () - 08/05 CBC w/ auto diff HCT % 39.0 49.0 32.7 Low FINAL Abdulkadir Jaime [facility] [place], [address] [place] [id number] 0 Phone: () - 08/05 CBC w/ auto diff MCV fL 80.0 104.0 95.3 FINAL Abdulkadir Jaime [facility] [place], [address] [place] [id number] 0 Phone: () - 08/05 CBC w/ auto diff MCH pg 26.0 35.0 31.8 FINAL Abdulkadir Jaime [facility] [place], [address] [place] [id number] 0 Phone: () - 08/05 CBC w/ auto diff MCHC g/dL 30.0 35.0 33.3 FINAL Abdulkadir Jaime [facility] [place], [address] [place] [id number] 0 Phone: () - 08/05 CBC w/ auto diff MPV fL 9.5 13.4 10.3 FINAL Abdulkadir Sandoval [facility] [place], [address] [facility] [id number] 0 Phone: () - 08/05 CBC w/ auto diff RDW % 11.3 15.6 13.40 FINAL Abdulkadir Sandoval [facility] [place], [address] [facility] [id number] 0 Phone: () - 11/17 CMP Album in g/dL 3.5 5.0 4.2 FINAL Abdulkadir Sandoval * [facility] , [address] [facility] [id number] 0 11/17 CMP Alkal ine phosp hatas e U/L 36.0 125.0 118 FINAL Abdulkadir Sandoval * [facility] , [address] [facility] [id number] 0 11/17 CMP ALT/S GPT U/L 0.0 49.0 20 FINAL Abdulkadir Sandoval * [facility] , [address] [facility] [id number] 0 11/17 CMP AST/S GOT U/L 17.0 59.0 39 FINAL Abdulkadir Sandoval * [facility] , [address] [facility] [id number] 0 11/17 CMP BUN mg/dL 9.0 20.0 30.0 High FINAL Abdulkadir Sandoval * [facility] , [address] [facility] [id number] 0 11/17 CMP Calci um mg/dL 8.4 10.2 9.6 FINAL Abdulkadir Sandoval * [facility] , [address] [facility] [id number] 0 11/17 CMP Chlor narinder mmol/L 96.0 107.0 104 [facility]AL [facility] * [facility] , [address] [id number] 0 11/17 CMP CO2 mmol/L 22.0 30.0 28 The expected total allowable error for CO2 is 5.6%. We have seen up to 10% differenc e in values if reported at the end of the 96 hour stability window. Please consider the clinical significa nce of a 2.0-2.5 mmol/L lower reported CO2 value if reported at the end of the 96 hour stability window. FINAL [facility] * [facility] , [facility] [address] [id number] 0 11/17 CMP Creat inine mg/dL 0.66 1.25 1.00 FINAL [facility] * [facility] , [facility] [address] [id number] 0 11/17 CMP GFR estim ate ml/min /1.73m ^2 73.3 GFR is calculate d using the CKD-EPI equation. FINAL [facility] * [facility] , [facility] [address] [id number] 0 11/17 CMP Gluco se mg/dL 74.0 100.0 117 High FINAL [facility] * [facility] , [facility] [address] [facility] [id number] 11/17 CMP Potas sium mmol/L 3.5 5.1 4.2 FINAL [facility] * [facility] , [facility] [address] [id number] 0 11/17 CMP Sodiu m mmol/L 137.0 145.0 138 FINAL Abdulkadir Sandoval * [place] [facility] [place] [facility] , [address] [facility] [id number] 0 11/17 CMP Bilir ubin, total mg/dL 0.2 1.3 0.5 FINAL Abdulkadir Sandoval * [place] [facility] [place] [facility] , [address] [facility] [id number] 0 11/17 CMP Total prote in g/dL 6.3 8.2 6.7 FINAL Abdulkadir Sandoval * [place] [facility] [place] [facility] , [address] [facility] [id number] 0 11/17 CBC w/ auto diff WBC K/uL 3.0 8.9 6.0 FINAL Abdulkadir Sandoval [place] [facility] [place] [facility] , [address] [place] [id number] 0 11/17 CBC w/ auto diff HGB g/dL 12.5 16.6 12.3 Low FINAL Abdulkadir Sandoval [place] [facility] [place] [facility] , [address] [place] [id number] 0 11/17 CBC w/ auto diff PLT K/uL 113.0 364.0 174 FINAL Abdulkadir Sandoval [place] [facility] [place] [facility] , [address] [place] [id number] 0 11/17 CBC w/ auto diff [place] # (ANC) K/uL 1.6 6.6 3.4 FINAL Abdulkadir Sandoval [place] [facility] [place] [facility] , [address] [place] [id number] 0 11/17 CBC w/ auto diff [place] % % 43.0 74.0 55.8 FINAL Abdulkadir Sandoval [place] [facility] [place] [facility] , [address] [place] [id number] 0 11/17 CBC w/ auto diff IG % % 0.0 0.5 0.2 FINAL Abdulkadir Sandoval [place] [facility] [place] [facility] , [address] [place] [id number] 0 11/17 CBC w/ auto diff IG # K/uL 0.0 0.03 0.01 FINAL Abdulkadir Sandoval [place] [facility] [place] [facility] , [address] [place] [id number] 0 11/17 CBC w/ auto diff LY % % 14.0 41.0 29.0 FINAL Abdulkadir Sandoval [place] [facility] [place] [facility] , [address] [place] [id number] 0 11/17 CBC w/ auto diff MO % % 6.0 15.0 10.3 FINAL Abdulkadir Sandoval [place] [facility] [place] [facility] , [address] [place] [id number] 0 11/17 CBC w/ auto diff EO % % 0.0 7.0 4.2 FINAL Abdulkadir Sandoval [place] [facility] [place] [facility] , [address] [place] [id number] 0 11/17 CBC w/ auto diff BA % % 0.0 2.0 0.5 FINAL Abdulkadir Sandoval [place] [facility] [place] [facility] , [address] [place] [id number] 0 11/17 CBC w/ auto diff LY # K/uL 0.4 3.6 1.7 FINAL Abdulkadir Sandoval [place] [facility] [place] [facility] , [address] [place] [id number] 0 11/17 CBC w/ auto diff MO # K/uL 0.2 1.3 0.6 FINAL Abdulkadir Sandoval [place] [facility] [place] [facility] , [address] [place] [id number] 0 11/17 CBC w/ auto diff EO # K/uL 0.0 0.6 0.3 FINAL Abdulkadir Sandoval [place] [facility] [place] [facility] , [address] [place] [id number] 0 11/17 CBC w/ auto diff BA # K/uL 0.0 0.2 0.0 FINAL Abdulkadir Sandoval [place] [facility] [place] [facility] , [address] [place] [id number] 0 11/17 CBC w/ auto diff NRBC % #/100W BC 0.0 0.2 0.0 FINAL Abdulkadir Sandoval [place] [facility] [place] [facility] , [address] [place] [id number] 0 11/17 CBC w/ auto diff RBC M/uL 4.2 5.6 4.17 Low FINAL Abdulkadir Sandoval [place] [facility] [place] [facility] , [address] [place] [id number] 0 11/17 CBC w/ auto diff HCT % 39.0 49.0 38.9 Low FINAL Abdulkadir Sandoval [place] [facility] [place] [facility] , [address] [place] [id number] 0 11/17 CBC w/ auto diff MCV fL 80.0 104.0 93.3 FINAL Abdulkadir Sandoval [place] [facility] [place] [facility] , [address] [place] [id number] 0 11/17 CBC w/ auto diff MCH pg 26.0 35.0 29.5 FINAL Abdulkadir Jaime [facility] [place] [facility] , [address] [place] [facility] [id number] 0 11/17 CBC w/ auto diff MCHC g/dL 30.0 35.0 31.6 FINAL Abdulkadir Jaime [place] [facility] [place] [facility] , [address] [place] [facility] [id number] 0 11/17 CBC w/ auto diff MPV fL 9.5 13.4 11.5 FINAL Abdulkadir Jaime [place] [facility] [place] [facility] , [address] [facility] [address] [facility] [id number] 0 11/17 CBC w/ auto diff RDW % 11.3 15.6 14.60 FINAL Abdulkadir Jaime Hill[facility] , [address] [facility] [address] [facility] [id number] 0 11/17 PSA diagn ostic panel PSA ng/ml 0.0 3.9 <0.06 Test performed at [facility] on a [employer] Immunoass ay Analyzer that uses an immunomet yuko immunoass ay technique . Patient testing should not be performed using multiple methodunruly plaza due to analytica l variation seen between test methodunruly plaza. FINAL Abdulkadir Jaime * [place] [facility] [place] [facility] , [address] [facility] [id number] 0 02/27 [facility] other lab See epidemiology investigator d 03/27 CBC w/ auto diff MCHC g/dL 30.0 35.0 32.7 FINAL Abdulkadir Jaime [place] [facility] [place] [facility] , [address] [facility] [id number] 0 03/27 CBC w/ auto diff MPV fL 9.5 13.4 10.1 FINAL Abdulkadir Jaime [place] [facility] [place] [facility] , [address] [place] [id number] 0 03/27 CBC w/ auto diff RDW % 11.3 15.6 13.30 FINAL Abdulkadir Sandoval [place] [facility] [place] [facility] , [address] [place] [id number] 0 03/27 CBC w/ auto diff WBC K/uL 3.0 8.9 4.6 FINAL Abdulkadir Sandoval [place] [facility] [place] [facility] , [address] [place] [id number] 0 03/27 CBC w/ auto diff HGB g/dL 12.5 16.6 13.0 FINAL Abdulkadir Jaime [place] [facility] [place] [facility] , [address] [place] [id number] 0 03/27 CBC w/ auto diff PLT K/uL 113.0 364.0 178 FINAL Abdulkadir Jaime [place] [facility] [place] [facility] , [address] [place] [id number] 0 03/27 CBC w/ auto diff [place] # (ANC) K/uL 1.6 6.6 2.8 FINAL Abdulkadir Jaime [place] [facility] [place] [facility] , [address] [place] [id number] 0 03/27 CBC w/ auto diff [place] % % 43.0 74.0 61.1 FINAL Abdulkadir Sandoval [place] [facility] [place] [facility] , [address] [place] [id number] 0 03/27 CBC w/ auto diff IG % % 0.0 0.5 0.0 FINAL Abdulkadir Sandoval [place] [facility] [place] [facility] , [address] [place] [id number] 0 03/27 CBC w/ auto diff IG # K/uL 0.0 0.03 0.00 FINAL Abdulkadir Sandoval [place] [facility] [place] [facility] , [address] [place] [id number] 0 03/27 CBC w/ auto diff LY % % 14.0 41.0 25.4 FINAL Abdulkadir Sandoval [place] [facility] [place] [facility] , [address] [place] [id number] 0 03/27 CBC w/ auto diff MO % % 6.0 15.0 11.3 FINAL Abdulkadir Sandoval [place] [facility] [place] [facility] , [address] [place] [id number] 0 03/27 CBC w/ auto diff EO % % 0.0 7.0 1.5 FINAL Abdulkadir Jaime [place] [facility] [place] [facility] , [address] [place] [id number] 0 03/27 CBC w/ auto diff BA % % 0.0 2.0 0.7 FINAL Abdulkadir Jaime [place] [facility] [place] [facility] , [address] [place] [id number] 0 03/27 CBC w/ auto diff LY # K/uL 0.4 3.6 1.2 FINAL Abdulkadir Jaime [place] [facility] [place] [facility] , [address] [place] [id number] 0 03/27 CBC w/ auto diff MO # K/uL 0.2 1.3 0.5 FINAL Abdulkadir Sandoval [place] [facility] [place] [facility] , [address] [place] [id number] 0 03/27 CBC w/ auto diff EO # K/uL 0.0 0.6 0.1 FINAL Abdulkadir Sandoval [place] [facility] [place] [facility] , [address] [place] [id number] 0 03/27 CBC w/ auto diff BA # K/uL 0.0 0.2 0.0 FINAL Abdulkadir Sandoval [place] [facility] [place] [facility] , [address] [place] [id number] 0 03/27 CBC w/ auto diff NRBC % #/100W BC 0.0 0.2 0.0 FINAL Abdulkadir Sandoval [place] [facility] [place] [facility] , [address] [place] [id number] 0 03/27 CBC w/ auto diff RBC M/uL 4.2 5.6 4.19 Low FINAL Abdulkadir Sandoval [place] [facility] [place] [facility] , [address] [place] [id number] 0 03/27 CBC w/ auto diff HCT % 39.0 49.0 39.8 FINAL Abdulkadir Sandoval [place] [facility] [place] [facility] , [address] [place] [id number] 0 03/27 CBC w/ auto diff MCV fL 80.0 104.0 95.0 FINAL Abdulkadir Sandoval [place] [facility] [place] [facility] , [address] [place] [id number] 0 03/27 CBC w/ auto diff MCH pg 26.0 35.0 31.0 FINAL Abdulkadir Sandoval [place] [facility] [place] [facility] , [address] [place] [id number] 0 03/27 CMP Album in g/dL 3.5 5.0 4.2 FINAL Abdulkadir Sandoval * [facility] , [address] [facility] [id number] 0 03/27 CMP Alkal ine phosp hatas e U/L 36.0 125.0 111 FINAL Abdulkadir Sandoval * [facility] , [address] [facility] [id number] 0 03/27 CMP ALT/S GPT U/L 0.0 49.0 20 FINAL Abdulkadir Sandoval * [facility] , [address] [facility] [id number] 0 03/27 CMP AST/S GOT U/L 17.0 59.0 40 FINAL Abdulkadir Sandoval * [facility] , [address] [facility] [id number] 0 03/27 CMP BUN mg/dL 9.0 20.0 21.0 High FINAL Abdulkadir Sandoval * [facility] , [address] [facility] [id number] 0 03/27 CMP Calci um mg/dL 8.4 10.2 9.4 FINAL Abdulkadir Sandoval * [facility] , [address] [facility] [id number] 0 03/27 CMP Chlor narinder mmol/L 96.0 107.0 101 FINAL Abdulkadir Sandoval * [facility] , [address] [facility] [id number] 0 03/27 CMP CO2 mmol/L 22.0 30.0 30 The expected total allowable error for CO2 is 5.6%. We have seen up to 10% differenc e in values if reported at the end of the 96 hour stability window. Please consider the clinical significa nce of a 2.0-2.5 mmol/L lower reported CO2 value if reported at the end of the 96 hour stability window. FINAL Abdulkadir Sandoval * [facility] , [facility] [address] [id number] 0 03/27 CMP Creat inine mg/dL 0.66 1.25 1.00 FINAL Abdulkadir Sandoval * [facility] , [facility] [address] [id number] 0 03/27 CMP GFR estim ate ml/min /1.73m ^2 73.1 GFR is calculate d using the CKD-EPI equation. FINAL Abdulkadir Sandoval * [facility] , [facility] [address] [facility] [id number] [facility]/27 CMP Gluco se mg/dL 74.0 100.0 81 FINAL Abdulkadir Sandoval * [facility] , [facility] [address] [place] [address] [id number] 03/27 CMP Potas sium mmol/L 3.5 5.1 4.3 FINAL Abdulkadir Sandoval * [facility] , [address] [place] [address] [place] [address] [id number] 03/27 CMP Sodiu m mmol/L 137.0 145.0 139 FINAL Abdulkadir Sandoval * [facility] , [facility] [address] [id number] 03/27 CMP Bilir ubin, total mg/dL 0.2 1.3 0.3 FINAL Abdulkadir Sandoval * [facility] , [facility] [address] [id number] 03/27 CMP Total prote in g/dL 6.3 8.2 6.6 FINAL Abdulkadir Sandoval * [facility] , [facility] [address] [id number] 03/27 PSA diagn ostic panel PSA ng/ml 0.0 3.9 0.33 Test performed at [facility] on a [employer] Up0 Immunoass ay Analyzer that uses an immunomet yuko immunoass ay technique . Patient testing should not be performed using multiple methodolo gies due to analytica l variation seen between test methodolo gies. FINAL Abdulkadir Sandoval * [facility] , [address] [facility] [address] [id number] 03/27 Di tin panel Di tin ng/mL 17.9 464.0 27.20 FINAL Abdulkadir Sandoval * [facility] , [address] [facility] [address] [place] [address] [id number] Medications Date Name Route Dose Frequency Instructions Start Date End Date Status Diphenhydramine- Acetaminophen Oral 25 mg-500 mg 1.0 tablet prn insomnia active Polyethylene Glycol Oral Powder gram/do se either 1/2 dose daily or full dose every other night prn constipation active Fluticasone-Umec lidin-Vilanter Inhaler 100 mcg-62.5 mcg-25 mcg/actuation QD 1 puff QD active Tamsulosin Oral QD a ctive Hydrocodone-Acet aminophen Oral 10 mg-325 mg PRN active Naproxen Sodium Oral 1.0 tablet prn pain active Aspirin Oral orally 81.0 mg daily act garo Cyclobenzaprine Oral PRN active 08/25 famotidine 10 MG/ML Injectable Solution intravenously 20.0 mg Re-initiate treatment only upon physician approval. 2026 active 08/25 hydrocortisone 100 MG Injection intravenously 100.0 mg Re-initiate treatment only upon physician approval. 2026 active 08/25 diphenhydramine hydrochloride 0.5 MG/ML Injectable Solution intravenously 50.0 mg Re-initiate treatment only upon physician approval. 2026 active 08/25 0.375 ML leuprolide acetate 60 MG/ML Prefilled Syringe subcutaneously 22.5 mg once 2026 active 08/25 1 ML epinephrine 1 MG/ML Injection intramuscularly 0.3 mg once Re-initiate treatment only upon physician approval. 2026 active 08/25 methylprednisolo ne 2000 MG Injection intravenously 125.0 mg Re-initiate treatment only upon physician approval. 2026 active 06/02 famotidine 10 MG/ML Injectable Solution intravenously 20.0 mg Re-initiate treatment only upon physician approval. 2026 active 06/02 hydrocortisone 100 MG Injection intravenously 100.0 mg Re-initiate treatment only upon physician approval. 2026 active 06/02 1 ML epinephrine 1 MG/ML Injection intramuscularly 0.3 mg once Re-initiate treatment only upon physician approval. 2026 active 06/02 diphenhydramine hydrochloride 0.5 MG/ML Injectable Solution intravenously 50.0 mg Re-initiate treatment only upon physician approval. 2026 active 06/02 0.375 ML leuprolide acetate 60 MG/ML Prefilled Syringe subcutaneously 22.5 mg once 2026 active 06/02 methylprednisolo ne 2000 MG Injection intravenously 125.0 mg Re-initiate treatment only upon physician approval. 2026 active 03/10 hydrocortisone 100 MG Injection intravenously 100.0 mg Re-initiate treatment only upon physician approval. 2026 active 03/10 famotidine 10 MG/ML Injectable Solution intravenously 20.0 mg Re-initiate treatment only upon physician approval. 2026 active 03/10 1 ML epinephrine 1 MG/ML Injection intramuscularly 0.3 mg once Re-initiate treatment only upon physician approval. 2026 active 03/10 methylprednisolo ne 2000 MG Injection intravenously 125.0 mg Re-initiate treatment only upon physician approval. 2026 active 03/10 diphenhydramine hydrochloride 0.5 MG/ML Injectable Solution intravenously 50.0 mg Re-initiate treatment only upon physician approval. 2026 active 03/10 0.375 ML leuprolide acetate 60 MG/ML Prefilled Syringe subcutaneously 22.5 mg once 2026 active 12/16 methylprednisolo ne 2000 MG Injection intravenously 125.0 mg Re-initiate treatment only upon physician approval. 2026 active 12/16 famotidine 10 MG/ML Injectable Solution intravenously 20.0 mg Re-initiate treatment only upon physician approval. 2026 active 12/16 0.375 ML leuprolide acetate 60 MG/ML Prefilled Syringe subcutaneously 22.5 mg once 2026 active 12/16 1 ML epinephrine 1 MG/ML Injection intramuscularly 0.3 mg once Re-initiate treatment only upon physician approval. 2026 active 12/16 hydrocortisone 100 MG Injection intravenously 100.0 mg Re-initiate treatment only upon physician approval. 2026 active 12/16 diphenhydramine hydrochloride 0.5 MG/ML Injectable Solution intravenously 50.0 mg Re-initiate treatment only upon physician approval. 2026 active 09/23 1 ML epinephrine 1 MG/ML Injection intramuscularly 0.3 mg once Re-initiate treatment only upon physician approval. 2025 active 09/23 0.375 ML leuprolide acetate 60 MG/ML Prefilled Syringe subcutaneously 22.5 mg once 2025 active 09/23 diphenhydramine hydrochloride 0.5 MG/ML Injectable Solution intravenously 50.0 mg Re-initiate treatment only upon physician approval. 2025 active 09/23 hydrocortisone 100 MG Injection intravenously 100.0 mg Re-initiate treatment only upon physician approval. 2025 active 09/23 methylprednisolo ne 2000 MG Injection intravenously 125.0 mg Re-initiate treatment only upon physician approval. 2025 active 09/23 famotidine 10 MG/ML Injectable Solution intravenously 20.0 mg Re-initiate treatment only upon physician approval. 2025 active 07/01 diphenhydramine hydrochloride 0.5 MG/ML Injectable Solution intravenously 50.0 mg Re-initiate treatment only upon physician approval. 2025 active 07/01 1 ML epinephrine 1 MG/ML Injection intramuscularly 0.3 mg once Re-initiate treatment only upon physician approval. 2025 active 07/01 0.375 ML leuprolide acetate 60 MG/ML Prefilled Syringe subcutaneously 22.5 mg once 2025 active 07/01 methylprednisolo ne 2000 MG Injection intravenously 125.0 mg Re-initiate treatment only upon physician approval. 2025 active 07/01 hydrocortisone 100 MG Injection intravenously 100.0 mg Re-initiate treatment only upon physician approval. 2025 active 07/01 famotidine 10 MG/ML Injectable Solution intravenously 20.0 mg Re-initiate treatment only upon physician approval. 2025 active 04/08 methylprednisolo ne 2000 MG Injection intravenously 125.0 mg Re-initiate treatment only upon physician approval. 2025 active 04/08 0.375 ML leuprolide acetate 60 MG/ML Prefilled Syringe subcutaneously 22.5 mg once 2025 active 04/08 1 ML epinephrine 1 MG/ML Injection intramuscularly 0.3 mg once Re-initiate treatment only upon physician approval. 2025 active 04/08 famotidine 10 MG/ML Injectable Solution intravenously 20.0 mg Re-initiate treatment only upon physician approval. 2025 active 04/08 hydrocortisone 100 MG Injection intravenously 100.0 mg Re-initiate treatment only upon physician approval. 2025 active 04/08 diphenhydramine hydrochloride 0.5 MG/ML Injectable Solution intravenously 50.0 mg Re-initiate treatment only upon physician approval. 2025 active 01/14 0.375 ML leuprolide acetate 60 MG/ML Prefilled Syringe subcutaneously 22.5 mg once 2025 active 01/14 1 ML epinephrine 1 MG/ML Injection intramuscularly 0.3 mg once Re-initiate treatment only upon physician approval. 2025 active 01/14 methylprednisolo ne 2000 MG Injection intravenously 125.0 mg Re-initiate treatment only upon physician approval. 2025 active 01/14 famotidine 10 MG/ML Injectable Solution intravenously 20.0 mg Re-initiate treatment only upon physician approval. 2025 active 01/14 hydrocortisone 100 MG Injection intravenously 100.0 mg Re-initiate treatment only upon physician approval. 2025 active 01/14 diphenhydramine hydrochloride 0.5 MG/ML Injectable Solution intravenously 50.0 mg Re-initiate treatment only upon physician approval. 2025 active 10/22 0.375 ML leuprolide acetate 60 MG/ML Prefilled Syringe subcutaneously 22.5 mg once 2024 active 10/22 diphenhydramine hydrochloride 0.5 MG/ML Injectable Solution intravenously 50.0 mg Re-initiate treatment only upon physician approval. 2024 active 10/22 famotidine 10 MG/ML Injectable Solution intravenously 20.0 mg Re-initiate treatment only upon physician approval. 2024 active 10/22 hydrocortisone 100 MG Injection intravenously 100.0 mg Re-initiate treatment only upon physician approval. 2024 active 10/22 1 ML epinephrine 1 MG/ML Injection intramuscularly 0.3 mg once Re-initiate treatment only upon physician approval. 2024 active 10/22 methylprednisolo ne 2000 MG Injection intravenously 125.0 mg Re-initiate treatment only upon physician approval. 2024 active 07/30 diphenhydramine hydrochloride 0.5 MG/ML Injectable Solution intravenously 50.0 mg Re-initiate treatment only upon physician approval. 2024 active 07/30 hydrocortisone 100 MG Injection intravenously 100.0 mg Re-initiate treatment only upon physician approval. 2024 active 07/30 famotidine 10 MG/ML Injectable Solution intravenously 20.0 mg Re-initiate treatment only upon physician approval. 2024 active 07/30 0.375 ML leuprolide acetate 60 MG/ML Prefilled Syringe subcutaneously 22.5 mg once 2024 active 07/30 1 ML epinephrine 1 MG/ML Injection intramuscularly 0.3 mg once Re-initiate treatment only upon physician approval. 2024 active 07/30 methylprednisolo ne 2000 MG Injection intravenously 125.0 mg Re-initiate treatment only upon physician approval. 2024 active 06/15 ascorbic acid 125 MG / iron carbonyl 65 MG Delayed Release Oral Tablet [Vitron-C Reformulated May 2016] orally 1.0 tab 2 times per week 2024 active 05/07 methylprednisolo ne 2000 MG Injection intravenously 125.0 mg Re-initiate treatment only upon physician approval. 2024 active 05/07 diphenhydramine hydrochloride 0.5 MG/ML Injectable Solution intravenously 50.0 mg Re-initiate treatment only upon physician approval. 2024 active 05/07 famotidine 10 MG/ML Injectable Solution intravenously 20.0 mg Re-initiate treatment only upon physician approval. 2024 active 05/07 0.375 ML leuprolide acetate 60 MG/ML Prefilled Syringe subcutaneously 22.5 mg once 2024 active 05/07 hydrocortisone 100 MG Injection intravenously 100.0 mg Re-initiate treatment only upon physician approval. 2024 active 05/07 1 ML epinephrine 1 MG/ML Injection intramuscularly 0.3 mg once Re-initiate treatment only upon physician approval. 2024 active 02/12 diphenhydramine hydrochloride 0.5 MG/ML Injectable Solution intravenously 50.0 mg Re-initiate treatment only upon physician approval. 2024 active 02/12 0.375 ML leuprolide acetate 60 MG/ML Prefilled Syringe subcutaneously 22.5 mg once 2024 active 02/12 hydrocortisone 100 MG Injection intravenously 100.0 mg Re-initiate treatment only upon physician approval. 2024 active 02/12 famotidine 10 MG/ML Injectable Solution intravenously 20.0 mg Re-initiate treatment only upon physician approval. 2024 active 02/12 methylprednisolo ne 2000 MG Injection intravenously 125.0 mg Re-initiate treatment only upon physician approval. 2024 active 02/12 1 ML epinephrine 1 MG/ML Injection intramuscularly 0.3 mg once Re-initiate treatment only upon physician approval. 2024 active 11/20 0.375 ML leuprolide acetate 60 MG/ML Prefilled Syringe subcutaneously 22.5 mg once 11/20 on hold 11/20 1 ML epinephrine 1 MG/ML Injection intramuscularly 0.3 mg once Re-initiate treatment only upon physician approval. 11/20 on hold 11/20 hydrocortisone 100 MG Injection intravenously 100.0 mg Re-initiate treatment only upon physician approval. 11/20 on hold 11/20 methylprednisolo ne 2000 MG Injection intravenously 125.0 mg Re-initiate treatment only upon physician approval. 11/20 on hold 11/20 famotidine 10 MG/ML Injectable Solution intravenously 20.0 mg Re-initiate treatment only upon physician approval. 11/20 on hold 11/20 diphenhydramine hydrochloride 0.5 MG/ML Injectable Solution intravenously 50.0 mg Re-initiate treatment only upon physician approval. 11/20 on hold 08/20 famotidine 20 MG Oral Tablet orally 1.0 tablet every day 2023 active 08/12 famotidine 10 MG/ML Injectable Solution intravenously 20.0 mg Re-initiate treatment only upon physician approval. 2023 active 08/12 hydrocortisone 100 MG Injection intravenously 100.0 mg Re-initiate treatment only upon physician approval. 2023 active 08/12 methylprednisolo ne 2000 MG Injection intravenously 125.0 mg Re-initiate treatment only upon physician approval. 2023 active 08/12 0.375 ML leuprolide acetate 60 MG/ML Prefilled Syringe subcutaneously 22.5 mg once 08/12 on hold 08/12 diphenhydramine hydrochloride 0.5 MG/ML Injectable Solution intravenously 50.0 mg Re-initiate treatment only upon physician approval. 2023 active 08/12 1 ML epinephrine 1 MG/ML Injection intramuscularly 0.3 mg once Re-initiate treatment only upon physician approval. 2023 active 05/27 famotidine 20 MG Oral Tablet orally 1.0 tablet every day 2023 active 05/20 ascorbic acid 125 MG / iron carbonyl 65 MG Delayed Release Oral Tablet [Vitron-C Reformulated May 2016] orally 1.0 tab 2 times per week 2023 active 05/20 1 ML epinephrine 1 MG/ML Injection intramuscularly 0.3 mg once Re-initiate treatment only upon physician approval. 2023 active 05/20 methylprednisolo ne 2000 MG Injection intravenously 125.0 mg Re-initiate treatment only upon physician approval. 2023 active 05/20 hydrocortisone 100 MG Injection intravenously 100.0 mg Re-initiate treatment only upon physician approval. 2023 active 05/20 famotidine 10 MG/ML Injectable Solution intravenously 20.0 mg Re-initiate treatment only upon physician approval. 2023 active 05/20 diphenhydramine hydrochloride 0.5 MG/ML Injectable Solution intravenously 50.0 mg Re-initiate treatment only upon physician approval. 2023 active 03/19 acetaminophen 325 MG / hydrocodone bitartrate 5 MG Oral Tablet orally 1.0 tablet every 4 hours 2023 active 03/03 famotidine 20 MG Oral Tablet orally 1.0 tablet every day 2023 active 01/20 ascorbic acid 125 MG / iron carbonyl 65 MG Delayed Release Oral Tablet [Vitron-C Reformulated May 2016] orally 1.0 tab daily 2023 active 12/14 trazodone hydrochloride 150 MG Oral Tablet orally 1.0 tablet every day at bedtime 2023 active 11/30 famotidine 20 MG Oral Tablet orally 1.0 tablet every day 2023 active 11/22 ascorbic acid 125 MG / iron carbonyl 65 MG Delayed Release Oral Tablet [Vitron-C Reformulated May 2016] orally 1.0 tab daily 2023 active 09/10 famotidine 20 MG Oral Tablet orally 1.0 tablet every day 2022 active 08/09 trazodone hydrochloride 150 MG Oral Tablet orally 1.0 tablet every day at bedtime 2022 active 08/03 hydrocortisone 100 MG Injection intravenously 100.0 mg Re-initiate treatment only upon physician approval. 2022 active 08/03 methylprednisolo ne 2000 MG Injection intravenously 125.0 mg Re-initiate treatment only upon physician approval. 2022 active 08/03 famotidine 10 MG/ML Injectable Solution intravenously 20.0 mg Re-initiate treatment only upon physician approval. 2022 active 08/03 diphenhydramine hydrochloride 0.5 MG/ML Injectable Solution intravenously 50.0 mg Re-initiate treatment only upon physician approval. 2022 active 08/03 1 ML epinephrine 1 MG/ML Injection intramuscularly 0.3 mg once Re-initiate treatment only upon physician approval. 2022 active 08/02 apalutamide 60 MG Oral Tablet orally 120.0 mg daily 2022 active 06/19 famotidine 20 MG Oral Tablet orally 1.0 tablet every day 2022 active 05/04 hydrocortisone 100 MG Injection intravenously 100.0 mg Re-initiate treatment only upon physician approval. 2022 active 05/04 methylprednisolo ne 2000 MG Injection intravenously 125.0 mg Re-initiate treatment only upon physician approval. 2022 active 05/04 famotidine 10 MG/ML Injectable Solution intravenously 20.0 mg Re-initiate treatment only upon physician approval. 2022 active 05/04 1 ML epinephrine 1 MG/ML Injection intramuscularly 0.3 mg once Re-initiate treatment only upon physician approval. 2022 active 05/04 diphenhydramine hydrochloride 0.5 MG/ML Injectable Solution intravenously 50.0 mg Re-initiate treatment only upon physician approval. 2022 active 04/18 trazodone hydrochloride 150 MG Oral Tablet orally 1.0 tablet every day at bedtime 2022 active 03/28 famotidine 20 MG Oral Tablet orally 1.0 tablet every day 2022 active 01/18 1 ML epinephrine 1 MG/ML Injection intramuscularly 0.3 mg once Re-initiate treatment only upon physician approval. 2022 active 01/18 hydrocortisone 100 MG Injection intravenously 100.0 mg Re-initiate treatment only upon physician approval. 2022 active 01/18 famotidine 10 MG/ML Injectable Solution intravenously 20.0 mg Re-initiate treatment only upon physician approval. 2022 active 01/18 diphenhydramine hydrochloride 0.5 MG/ML Injectable Solution intravenously 50.0 mg Re-initiate treatment only upon physician approval. 2022 active 01/18 methylprednisolo ne 2000 MG Injection intravenously 125.0 mg Re-initiate treatment only upon physician approval. 2022 active 10/24 methylprednisolo ne 2000 MG Injection intravenously 125.0 mg Re-initiate treatment only upon physician approval. 2021 active 10/24 famotidine 10 MG/ML Injectable Solution intravenously 20.0 mg Re-initiate treatment only upon physician approval. 2021 active 10/24 trazodone hydrochloride 150 MG Oral Tablet orally 1.0 tablet every day at bedtime 2021 active 10/24 1 ML epinephrine 1 MG/ML Injection intramuscularly 0.3 mg once Re-initiate treatment only upon physician approval. 2021 active 10/24 diphenhydramine hydrochloride 0.5 MG/ML Injectable Solution intravenously 50.0 mg Re-initiate treatment only upon physician approval. 2021 active 10/24 hydrocortisone 100 MG Injection intravenously 100.0 mg Re-initiate treatment only upon physician approval. 2021 active 10/24 apalutamide 60 MG Oral Tablet orally 120.0 mg daily 2021 active 09/26 trazodone hydrochloride 150 MG Oral Tablet orally 1.0 tablet every day at bedtime 2021 active 09/12 trazodone hydrochloride 150 MG Oral Tablet orally 1.0 tablet every day at bedtime 2021 active 07/25 methylprednisolo ne 2000 MG Injection intravenously 125.0 mg Re-initiate treatment only upon physician approval. 2021 active 07/25 hydrocortisone 100 MG Injection intravenously 100.0 mg Re-initiate treatment only upon physician approval. 2021 active 07/25 famotidine 10 MG/ML Injectable Solution intravenously 20.0 mg Re-initiate treatment only upon physician approval. 2021 active 07/25 1 ML epinephrine 1 MG/ML Injection intramuscularly 0.3 mg once Re-initiate treatment only upon physician approval. 2021 active 07/25 diphenhydramine hydrochloride 0.5 MG/ML Injectable Solution intravenously 50.0 mg Re-initiate treatment only upon physician approval. 2021 active 07/18 apalutamide 60 MG Oral Tablet orally 120.0 mg daily 2021 active 06/26 trazodone hydrochloride 150 MG Oral Tablet orally 1.0 tablet every day at bedtime 2021 active 05/02 methylprednisolo ne 2000 MG Injection intravenously 125.0 mg Re-initiate treatment only upon physician approval. 2021 active 05/02 famotidine 10 MG/ML Injectable Solution intravenously 20.0 mg Re-initiate treatment only upon physician approval. 2021 active 05/02 1 ML epinephrine 1 MG/ML Injection intramuscularly 0.3 mg once Re-initiate treatment only upon physician approval. 2021 active 05/02 diphenhydramine hydrochloride 0.5 MG/ML Injectable Solution intravenously 50.0 mg Re-initiate treatment only upon physician approval. 2021 active 05/02 hydrocortisone 100 MG Injection intravenously 100.0 mg Re-initiate treatment only upon physician approval. 2021 active 03/27 trazodone hydrochloride 150 MG Oral Tablet orally 1.0 tablet every day at bedtime 2021 active 03/08 trazodone hydrochloride 100 MG Oral Tablet orally 1.0 tablet every day at bedtime 2021 active 02/07 methylprednisolo ne 2000 MG Injection intravenously 125.0 mg Re-initiate treatment only upon physician approval. 2021 active 02/07 hydrocortisone 100 MG Injection intravenously 100.0 mg Re-initiate treatment only upon physician approval. 2021 active 02/07 famotidine 10 MG/ML Injectable Solution intravenously 20.0 mg Re-initiate treatment only upon physician approval. 2021 active 02/07 1 ML epinephrine 1 MG/ML Injection intramuscularly 0.3 mg once Re-initiate treatment only upon physician approval. 2021 active 02/07 diphenhydramine hydrochloride 0.5 MG/ML Injectable Solution intravenously 50.0 mg Re-initiate treatment only upon physician approval. 2021 active 01/06 trazodone hydrochloride 150 MG Oral Tablet orally 1.0 tablet every day at bedtime 2021 active 12/07 apalutamide 60 MG Oral Tablet orally 120.0 mg daily 2021 active 12/06 trazodone hydrochloride 100 MG Oral Tablet orally 1.0 tablet every day at bedtime 2021 active 12/06 apalutamide 60 MG Oral Tablet orally 120.0 mg daily 2021 active 11/01 1 ML epinephrine 1 MG/ML Injection intramuscularly 0.3 mg once Re-initiate treatment only upon physician approval. 2020 active 11/01 famotidine 10 MG/ML Injectable Solution intravenously 20.0 mg Re-initiate treatment only upon physician approval. 2020 active 11/01 methylprednisolo ne 2000 MG Injection intravenously 125.0 mg Re-initiate treatment only upon physician approval. 2020 active 11/01 hydrocortisone 100 MG Injection intravenously 100.0 mg Re-initiate treatment only upon physician approval. 2020 active 11/01 diphenhydramine hydrochloride 0.5 MG/ML Injectable Solution intravenously 50.0 mg Re-initiate treatment only upon physician approval. 2020 active 08/02 1 ML epinephrine 1 MG/ML Injection intramuscularly 0.3 mg once Re-initiate treatment only upon physician approval. 2020 active 08/02 famotidine 10 MG/ML Injectable Solution intravenously 20.0 mg Re-initiate treatment only upon physician approval. 2020 active 08/02 hydrocortisone 100 MG Injection intravenously 100.0 mg Re-initiate treatment only upon physician approval. 2020 active 08/02 diphenhydramine hydrochloride 0.5 MG/ML Injectable Solution intravenously 50.0 mg Re-initiate treatment only upon physician approval. 2020 active 08/02 0.375 ML leuprolide acetate 60 MG/ML Prefilled Syringe subcutaneously 22.5 mg once 2020 active 08/02 apalutamide 60 MG Oral Tablet orally 240.0 mg daily 2020 active 08/02 methylprednisolo ne 2000 MG Injection intravenously 125.0 mg Re-initiate treatment only upon physician approval. 2020 active 04/29 methylprednisolo ne 2000 MG Injection intravenously 125.0 mg Re-initiate treatment only upon physician approval. 2020 active 04/29 famotidine 10 MG/ML Injectable Solution intravenously 20.0 mg Re-initiate treatment only upon physician approval. 2020 active 04/29 hydrocortisone 100 MG Injection intravenously 100.0 mg Re-initiate treatment only upon physician approval. 2020 active 04/29 1 ML epinephrine 1 MG/ML Injection intramuscularly 0.3 mg once Re-initiate treatment only upon physician approval. 2020 active 04/29 diphenhydramine hydrochloride 0.5 MG/ML Injectable Solution intravenously 50.0 mg Re-initiate treatment only upon physician approval. 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 Edema of lower extremity (finding) Active Urine nitrite positive Active Insomnia, persistent Active GERD Active Vital Signs Date Type Value 04/28/2021 Pain Scale 0.00 04/28/2021 Height 66.00 06/02/2021 Body Temperature 97.80 06/02/2021 BMI 24.99 06/02/2021 Height 66.00 06/02/2021 BSA 1.79 06/02/2021 Pain Scale 0.00 06/02/2021 Intravascular Systolic 142 06/02/2021 Intravascular Diastolic 70 06/02/2021 Oxygen Saturation 98.00 06/02/2021 Heart Beat 68.00 06/02/2021 Respiratory Rate 18.00 06/02/2021 Weight 154.80 08/02/2021 BSA 1.81 08/02/2021 BMI 25.66 08/02/2021 Height 66.00 08/02/2021 Weight 159.00 08/02/2021 Pain Scale 0.00 08/02/2021 Respiratory Rate 16.00 08/02/2021 Intravascular Systolic 182 08/02/2021 Intravascular Diastolic 78 08/02/2021 Oxygen Saturation 97.00 08/02/2021 Heart Beat 61.00 08/02/2021 Body Temperature 97.80 09/02/2021 Height 66.00 09/02/2021 BMI 25.47 09/02/2021 BSA 1.81 09/02/2021 Weight 157.80 09/02/2021 Body Temperature 97.40 09/02/2021 Intravascular Systolic 160 09/02/2021 Intravascular Diastolic 89 09/02/2021 Oxygen Saturation 97.00 09/02/2021 Respiratory Rate 12.00 09/02/2021 Heart Beat 74.00 09/02/2021 Pain Scale 0.00 09/30/2021 Intravascular Systolic 162 09/30/2021 Intravascular Diastolic 79 09/30/2021 BMI 25.99 09/30/2021 Height 66.00 09/30/2021 Weight 161.00 09/30/2021 Pain Scale 3.00 09/30/2021 Intravascular Systolic 183 09/30/2021 Intravascular Diastolic 83 09/30/2021 Oxygen Saturation 97.00 09/30/2021 Respiratory Rate 18.00 09/30/2021 Heart Beat 72.00 09/30/2021 Body Temperature 97.30 09/30/2021 BSA 1.82 12/06/2021 Body Temperature 98.00 12/06/2021 Heart Beat 58.00 12/06/2021 BSA 1.88 12/06/2021 BMI 27.92 12/06/2021 Height 66.00 12/06/2021 Weight 173.00 12/06/2021 Pain Scale 4.00 12/06/2021 Intravascular Systolic 160 12/06/2021 Intravascular Diastolic 70 12/06/2021 Oxygen Saturation 98.00 12/06/2021 Respiratory Rate 18.00 01/06/2022 Body Temperature 98.00 01/06/2022 BMI 26.94 01/06/2022 Height 66.00 01/06/2022 Weight 166.90 01/06/2022 BSA 1.85 01/06/2022 Intravascular Systolic 149 01/06/2022 Intravascular Diastolic 78 01/06/2022 Oxygen Saturation 97.00 01/06/2022 Respiratory Rate 16.00 01/06/2022 Heart Beat 67.00 01/06/2022 Pain Scale 0.00 02/07/2022 Body Temperature 96.20 02/07/2022 Heart Beat 90.00 02/07/2022 Respiratory Rate 16.00 02/07/2022 Oxygen Saturation 96.00 02/07/2022 Intravascular Systolic 148 02/07/2022 Intravascular Diastolic 74 02/07/2022 Pain Scale 8.00 02/07/2022 Weight 163.60 02/07/2022 Height 66.00 02/07/2022 BMI 26.41 02/07/2022 BSA 1.84 03/31/2022 BMI 24.86 03/31/2022 Height 66.00 03/31/2022 Weight 154.00 03/31/2022 Pain Scale 4.00 03/31/2022 BSA 1.79 03/31/2022 Oxygen Saturation 98.00 03/31/2022 Respiratory Rate 18.00 03/31/2022 Heart Beat 68.00 03/31/2022 Body Temperature 98.70 03/31/2022 Intravascular Systolic 136 03/31/2022 Intravascular Diastolic 72 05/02/2022 BSA 1.77 05/02/2022 BMI 24.37 05/02/2022 Height 66.00 05/02/2022 Weight 151.00 05/02/2022 Pain Scale 5.00 05/02/2022 Intravascular Systolic 140 05/02/2022 Intravascular Diastolic 71 05/02/2022 Oxygen Saturation 98.00 05/02/2022 Respiratory Rate 14.00 05/02/2022 Body Temperature 98.60 05/02/2022 Heart Beat 72.00 07/25/2022 Body Temperature 98.10 07/25/2022 Heart Beat 82.00 07/25/2022 BSA 1.75 07/25/2022 BMI 23.73 07/25/2022 Height 66.00 07/25/2022 Weight 147.00 07/25/2022 Pain Scale 0.00 07/25/2022 Intravascular Systolic 146 07/25/2022 Intravascular Diastolic 78 07/25/2022 Oxygen Saturation 97.00 07/25/2022 Respiratory Rate 16.00 10/24/2022 Body Temperature 98.90 10/24/2022 BMI 22.95 10/24/2022 Height 66.00 10/24/2022 Weight 142.20 10/24/2022 BSA 1.73 10/24/2022 Intravascular Systolic 138 10/24/2022 Intravascular Diastolic 78 10/24/2022 Oxygen Saturation 98.00 10/24/2022 Respiratory Rate 16.00 10/24/2022 Heart Beat 53.00 10/24/2022 Pain Scale 0.00 01/18/2023 Heart Beat 65.00 01/18/2023 Respiratory Rate 16.00 01/18/2023 Oxygen Saturation 98.00 01/18/2023 Intravascular Systolic 154 01/18/2023 Intravascular Diastolic 70 01/18/2023 Body Temperature 96.40 01/18/2023 Weight 151.40 01/18/2023 Height 66.00 01/18/2023 BMI 24.44 01/18/2023 BSA 1.78 01/18/2023 Pain Scale 0.00 05/04/2023 BSA 1.77 05/04/2023 BMI 24.08 05/04/2023 Height 66.00 05/04/2023 Weight 149.20 05/04/2023 Pain Scale 0.00 05/04/2023 Intravascular Systolic 140 05/04/2023 Intravascular Diastolic 64 05/04/2023 Oxygen Saturation 99.00 05/04/2023 Respiratory Rate 18.00 05/04/2023 Body Temperature 97.20 05/04/2023 Heart Beat 49.00 08/03/2023 BMI 24.86 08/03/2023 BSA 1.79 08/03/2023 Height 66.00 08/03/2023 Weight 154.00 08/03/2023 Pain Scale 0.00 08/03/2023 Intravascular Systolic 146 08/03/2023 Intravascular Diastolic 84 08/03/2023 Oxygen Saturation 100.00 08/03/2023 Respiratory Rate 18.00 08/03/2023 Heart Beat 61.00 08/03/2023 Body Temperature 96.60 11/08/2023 Body Temperature 97.00 11/08/2023 Heart Beat 64.00 11/08/2023 Respiratory Rate 14.00 11/08/2023 Oxygen Saturation 100.00 11/08/2023 BSA 1.79 11/08/2023 Pain Scale 0.00 11/08/2023 Weight 154.60 11/08/2023 Height 66.00 11/08/2023 BMI 24.95 11/08/2023 Intravascular Systolic 126 11/08/2023 Intravascular Diastolic 78 02/01/2024 Oxygen Saturation 100.00 02/01/2024 Respiratory Rate 16.00 02/01/2024 Heart Beat 49.00 02/01/2024 Body Temperature 95.50 02/01/2024 BSA 1.82 02/01/2024 Pain Scale 7.00 02/01/2024 Weight 160.20 02/01/2024 Height 66.00 02/01/2024 BMI 25.86 02/01/2024 Intravascular Systolic 144 02/01/2024 Intravascular Diastolic 80 05/20/2024 Respiratory Rate 16.00 05/20/2024 Heart Beat 61.00 05/20/2024 Body Temperature 96.90 05/20/2024 Height 66.00 05/20/2024 Oxygen Saturation 99.00 05/20/2024 BSA 1.79 05/20/2024 BMI 24.99 05/20/2024 Weight 154.80 05/20/2024 Pain Scale 3.00 05/20/2024 Intravascular Systolic 136 05/20/2024 Intravascular Diastolic 80 08/12/2024 Body Temperature 96.20 08/12/2024 Heart Beat 66.00 08/12/2024 Respiratory Rate 20.00 08/12/2024 Oxygen Saturation 92.00 08/12/2024 BSA 1.82 08/12/2024 Height 66.00 08/12/2024 Weight 161.20 08/12/2024 Pain Scale 0.00 08/12/2024 Intravascular Systolic 136 08/12/2024 Intravascular Diastolic 86 08/12/2024 BMI 26.02 11/20/2024 Body Temperature 96.60 11/20/2024 Heart Beat 63.00 11/20/2024 BSA 0.68 11/20/2024 BMI 2.55 11/20/2024 Height 66.00 11/20/2024 Weight 15.80 11/20/2024 Pain Scale 0.00 11/20/2024 Intravascular Systolic 120 11/20/2024 Intravascular Diastolic 82 11/20/2024 Oxygen Saturation 96.00 11/20/2024 Respiratory Rate 16.00 04/03/2025 Body Temperature 96.60 04/03/2025 BMI 25.73 04/03/2025 Height 66.00 04/03/2025 Weight 159.40 04/03/2025 BSA 1.82 04/03/2025 Intravascular Systolic 115 04/03/2025 Intravascular Diastolic 78 04/03/2025 Oxygen Saturation 100.00 04/03/2025 Respiratory Rate 16.00 04/03/2025 Heart Beat 63.00 04/03/2025 Pain Scale 0.00
--- NOTE | 2025-07-14 21:33 | ED_ITS ---
HPI - Back Pain/Injury General Date Seen: 07/14/25 Chief Complaint: Back Injury/Pain Stated Complaint: fell hurt back Time Seen by Provider: 07/14/25 21:14 Source: patient and family Mode of arrival: ambulatory Limitations: no limitations History of Present Illness HPI Narrative: Patient is a 84-year-old gentleman lives by himself in yesterday was coming up the stairs to his basement, when he turned he something fell out of his hands any tried to grab it he then slid down the last 8 stairs onto the ground. He says he did not hit his head he has no neck pain but he has pain in his lower back, was so bad that he threw up there he laid on the ground for approximately 2 hours, then was able to get himself up and walk up the stairs. Told his daughter this tonight, she has brought him in for assessment. He has had no further vomiting, denies any head pain neck pain associated with this denies any abdominal pain he ate normally today, there is no pain in any of his extremities but he has pretty bad back pain he tells me that he did have before he fell. He only anticoagulant he takes is 81 mg of aspirin. 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, elicited complaint: back pain, back injury and fall Similar Symptoms Previously: No Location: lumbar spine Radiation: none Exacerbating factors: movement Relieving factors: immobilization Context: fall Associated symptoms: denies other symptoms Work related injury: No Related Data Home Medications ?Medication ?Instructions ?Recorded ?Confirmed albuterol sulfate 90 mcg/actuation inhalation 09/19/23 10/17/23 aerosol inhaler apalutamide 60 mg tablet (Erleada) mg PO 09/19/2309/20 atorvastatin 20 mg tablet 20 mg PO DAILY 09/19/2309/20 famotidine 20 mg tablet 20 mg PO DAILY 09/19/2309/20 fluticasone propionate 50 1 spray intranasal DAILY 12/1110/17/23 mcg/actuation nasal spray,suspension mometasone-formoterol HFA 100 2 puff inhalation BID 10/17/23 mcg-5 mcg/actuation aerosol inhaler (Dulera) tamsulosin 0.4 mg capsule 0.4 mg PO DAILY 09/19/23 tiotropium bromide 18 mcg capsule 1 cap inhalation AWAIS LY 09/19/23 10/17/23 with inhalation device (Spiriva with HandiHaler) trazodone 150 mg tablet 150 mg PO QPM 09/19/2310/17 Allergies Allergy/AdvReac Type Severity Reaction Status Date / Time bupropion Allergy Unknown Verified 05/20/24 14:56 Penicillins Allergy Unknown Verified 05/20/24 14:56 Review of Systems Status of ROS: Reports: 10 or more systems reviewed and unremarkable except as noted in History and below [facility] Medical History GERD (gastroesophageal reflux disease) ?K21.9 - Gastro-esophageal reflux disease without esophagitis (ICD-10) COPD (chronic obstructive pulmonary disease) ?J44.9 - Chronic obstructive pulmonary disease, unspecified (ICD-10) Surgical History Hx of tonsillectomy ?Z90.89 - Acquired absence of other organs (ICD-10) S/P arthroscopy of right shoulder (11/02/97) ?Z98.890 - Other specified postprocedural states (ICD-10) S/P arthroscopy of left shoulder (12/26/01) ?Z98.890 - Other specified postprocedural states (ICD-10) Social History Smoking Status: Former smoker What tobacco products do you use: cigarettes Smoking quit date/years: >15 years ago Do you use any of these nicotine containing products: None Second hand tobacco smoke exposure: Yes (around [place] at work) Non-prescribed substance use: denies use service: No Exam Narrative: Exam Narrative: On examination patient is in room 2, he is alert oriented speaking to me normally but very [place], pupils equal round reactive to light there is no scleral icterus redness, is neck has range of motion from 6 cm through 18 cm side flexion is 10? and rotation 60? he has no absolutely no evidence of any swelling bruising over his head, or neck, cranial nerves 3-12 are normal common mouth opening is normal chest is good air entry bilaterally with no wheezing crackles noted his heart sounds are normal his abdomen is soft there is no organomegaly bowel sounds are normal. There is no tenderness over his chest, he has tenderness over his lower spine, I do not see any bruising there, any scoliosis Const: Vital Signs, click to edit/add: Vital Signs - 24 hr 07/14/25 20:26 07/14/25 22:38 Temperature 98 F 96.9 F L Pulse Rate [Pulse Oximeter] 84 76 Respiratory Rate 16 17 Blood Pressure [Ri ght Upper Arm] 150/82 H 157/87 H Pulse Oximetry 97 91 Oxygen Delivery Me thod Room Air Room Air Course Consultations Consultation #1: Dr. Lunsford emergency medicine [facility] – [place] Vital Signs Vital signs: Initial Vital Signs Temperature 98 F 07/14/25 20:26 Temperature Source Temporal Artery Scan 07/14/25 20:26 Pulse Rate 84 07/14/25 20:26 Respiratory Rate 16 07/14/25 20:26 Blood Pressure 150/82 H 07/14/25 20:26 Blood Pressure Mean 104 07/14/25 20:26 Blood Pressure Position Sitting 07/14/25 20:26 Pulse Oximetry 97 07/14/25 20:26 Oxygen Delivery Method Room Air 07/14/25 20:26 Vital Signs Temperature 98 F 07/14/25 20:26 Pulse Rate 84 07/14/25 20:26 Respiratory Rate 16 07/14/25 20:26 Blood Pressure 150/82 H 07/14/25 20:26 Pulse Oximetry 97 07/14/25 20:26 Oxygen Delivery Method Room Air 07/14/25 20:26 Temperature 96.9 F L 07/14/25 22:38 Pulse Rate 76 07/14/25 22:38 Respiratory Rate 17 07/14/25 22:38 Blood Pressure 157/87 H 07/14/25 22:38 Pulse Oximetry 91 07/14/25 22:38 Oxygen Delivery Method Room Air 07/14/25 22:38 Medications Administered Medications: Discontinued Medications Generic Name Dose Route Start Last Admin Trade Name Freq PRN Reason Stop Dose Admin Acetaminophen 1,000 mg 07/14/25 21:23 07/14/25 22:30 Acetaminophen 500 Mg Tablet PO 07/14/25 21:24 1,000 mg ONCE ONE Administration Hydromorphone HCl 0.5 mg 07/14/25 23:01 07/14/25 23:13 Hydromorphone 0.5 Mg/0.5 Ml Inj IVP 07/14/25 23:02 0.5 mg ONCE ONE Administration MDM - Back Pain/Injury MDM Narrative Medical decision making narrative: Patient was the multiple trauma 24 hours ago who walked into the emergency room. Complaining of back pain. We initially did scans of both his heads neck lumbar and thoracic multiple fractures were seen of his thoracic, ribs, and lumbar. I spoke to Dr. Lunsford in the emergency room at [facility], he accepted him in transfer but thought it would be prudent lower waiting to get a chest abdomen and pelvis CT. Patient is stable, and agreed to this. We will do laboratory work also. Medical Records Attestation: I reviewed the patient's medical records. Lab Data Attestation: I reviewed the patient's lab results. Labs: Lab Results 07/14/25 Range/Units 23:11 WBC 8.99 (4.50-11.00) K/uL RBC 3.25 L (4.30-5.90) m/uL Hgb 9.5 L (13.5-17.5) gm/dL Hct 28.8 L (37.0-53.0) % MCV 89 (80-100) fL MCH 29 (26-34) pg MCHC 33 (32-36) gm/dL RDW Coeff of Neris 14.0 (11.5-15.5) % Plt Count 176 (140-440) K/uL Neut % (Auto) 79.7 H (42.0-72.0) % Lymph % (Auto) 7.6 L (20-44) % [place] % (Auto) 12.2 H (0.0-11.0) % Eos % (Auto) 0.0 (0.0-7.0) % Baso % (Auto) 0.1 (0.0-3.0) % Neut # (Auto) 7.20 H (1.7-7.0) K/uL Lymph # (Auto) 0.70 L (0.90-2.90) K/uL [place] # (Auto) 1.10 H (0.00-0.90) K/UL Eos # (Auto) 0.00 (0.00-0.50) K/uL Baso # (Auto) 0.01 (0.00-0.30) K/uL Abs Immat Gran (auto) 0.04 (0.00-0.30) K/uL Imm/Tot Granulo (auto) 0.4 % INR 1.11 H (0.91-1.10) APTT 33 (23-33) Seconds Sodium 134 L (135-149) mmol/L Potassium 3.8 (3.6-5.1) mmol/L Chloride 102 (96-114) mmol/L Carbon Dioxide 26 (20-32) mmol/L Anion Gap 6 L (7-15) mEq/L BUN 26 (7-30) mg/dL Creatinine 0.9 (0.5-1.5) mg/dL Estimated Creat Clear 44.40 Estimated GFR 83 ml/min Glucose 130 H (60-115) mg/dL Calcium 9.6 (8.4-10.6) mg/dL Imaging Data CT Chest/Ab/Pelvis: Attestation: I have reviewed the pertinent imaging results. My impression: Multiple rib fractures nondisplaced. Radiologist's impression: [place] [address] Diagnostic Imaging Report Patient: Jose Chan Jr MR#: [id number] : 1940 Acct:[id number] Loc: ED Service Date: 07/14/[address]: Ordering Physician: Surendra Wilson M.D. Date of Service: 07/14/25 Procedure(s): CT chest abdomen pelv w con Accession Number(s): [id number] cc: Rome Fuller M.D.; Surendra Wilson M.D.~ For Patients: As a result of the Century Cures Act, medical imaging exams and procedure reports are released immediately into your electronic medical record. You may view this report before your referring provider. If you have questions, please contact your health care provider. INDICATION: Fall and multiple rib fractures TECHNIQUE: CT chest, abdomen and pelvis acquired with 74 cc of Isovue 370 IV contrast. COMPARISON: Chest CT 02/26/2020 FINDINGS: CHEST: Cardiovascular structures: Heart size is normal. Thoracic aorta and main pulmonary artery are normal in caliber. Mediastinum and lópez: No mass or adenopathy. Lungs and pleura: Small right and trace left pleural effusion with adjacent passive atelectasis. Mild additional dependent lower lobe atelectasis with bilaterally. 2.2 x 1.3 cm nodular airspace opacity within the left lower lobe (3/35). There was a smaller nodular opacity and scarring in this area on the prior CT. Chest wall and axilla: No mass or adenopathy. Bones: Possible acute nondisplaced right posterior 9th and 10th rib fractures. Several old left-sided rib fractures. Age-indeterminate mild T1 superior endplate compression fracture. Complete disc height loss at T9-T10. Chronic-appearing resection versus traumatic deformity of the right proximal clavicular shaft. The distal clavicle is separate from the clavicular head. ABDOMEN AND PELVIS: Liver: Unremarkable. Gallbladder and bile ducts: Unremarkable. Pancreas: Unremarkable. Spleen: Unremarkable. Adrenal glands: Unremarkable. Kidneys: Indeterminate hyperdense 1.8 cm lesion within the left kidney superior pole. No hydronephrosis or stone bilaterally. GI tract: Moderate colonic stool burden. No obstruction. Normal appendix. Vascular structures: Normal caliber abdominal aorta with moderate to heavy atherosclerotic calcification. Lymph nodes: Unremarkable. Miscellaneous: Unremarkable. No free air or significant free fluid. Pelvic Organs: Unremarkable. Bones: No suspicious bone lesions. Unremarkable for age. IMPRESSION: 1. Possible acute nondisplaced right posterior 9th and 10th rib fractures. Age-indeterminate mild T1 superior endplate compression fracture. Recommend correlation with sites for focal tenderness. 2. No other evidence of acute traumatic injury within the chest, abdomen, or pelvis. 3. Indeterminate 1.8 cm hyperdense lesion within the left kidney superior pole. This could represent a proteinaceous/hemorrhagic cyst; however, malignancy can not be excluded. Recommend dedicated outpatient renal CT or MRI for further evaluation, as clinically indicated. 4. 2.2 x 1.3 cm nodular airspace opacity within the left lower lobe, in an area of a previous smaller nodular opacity and scarring, could represent atelectasis, focal pneumonia, or possibly a pulmonary nodule. Recommend follow-up chest CT in 3 months to evaluate for interval change/resolution. Please note that all CT scans at this facility use dose modulation, iterative reconstruction, and/or weight-based dosing when appropriate to reduce radiation dose to as low as reasonably achievable. Dictated by Rudolph Peres MD @ 07/14/2025 11:56:[address] [address] Diagnostic Imaging Report Patient: Jose Chan Jr MR#: [id number] : 1940 Acct:[id number] Loc: ED Service Date: 07/14/25 Attending : Ordering Physician: Surendra Wilson M.D. Date of Service: 07/14/25 Procedure(s): CT thoracic spine wo con Accession Number(s): [id number] cc: Rome Fuller M.D.; Surendra Wilson M.D.~ For Patients: As a result of the Cures Act, medical imaging exams and procedure reports are released immediately into your electronic medical record. You may view this report before your referring provider. If you have questions, please contact your health care provider. INDICATION: Trauma, fall. Back pain. TECHNIQUE: CT thoracic spine without contrast. COMPARISON: None. FINDINGS: Vertebrae: Alignment is normal. Nondisplaced fractures of the right T6-T10 transverse processes. Discs and facet joints: There are diffuse degenerative changes in the disc spaces and facet joints. Extraspinal findings: Trace right pleural effusion. Bibasilar atelectasis. Cardiomegaly. Coronary artery and mitral annular calcifications. Nondisplaced fractures of the right 5th through 9th ribs at the costovertebral junction. Additional nondisplaced fracture of the posterior right 8th and 9th ribs. Old bilateral rib fractures. IMPRESSION: 1. Acute nondisplaced right T6-T10 transverse process fractures. 2. Acute nondisplaced right 5th through 9th rib costovertebral junction fractures. 3. Acute nondisplaced posterior right 8th and 9th rib fractures. 4. Trace right pleural effusion. Please note that all CT scans at this facility use dose modulation, iterative reconstruction, and/or weight-based dosing when appropriate to reduce radiation dose to as low as reasonably achievable. Dictated by Michael Hernandez MD @ 07/14/2025 10:47:[address] [address] Diagnostic Imaging Report Patient: Jose Chan Jr MR#: [id number] : 1940 Acct:[id number] Loc: ED Service Date: 07/14/[address]: Ordering Physician: Surendra Wilson M.D. Date of Service: 07/14/25 Procedure(s): CT lumbar spine wo con Accession Number(s): [id number] cc: Rome Fuller M.D.; Surendra Wilson M.D.~ For Patients: As a result of the Cures Act, medical imaging exams and procedure reports are released immediately into your electronic medical record. You may view this report before your referring provider. If you have questions, please contact your health care provider. INDICATION: Trauma, fall. Back pain. TECHNIQUE: CT lumbar spine without contrast. COMPARISON: None. FINDINGS: Vertebrae: Alignment is normal. Comminuted obliquely oriented fracture of the L2 vertebral body. Nondisplaced fracture plane extends to the left L1-L2 bridging osteophyte. Diffuse osteopenia. Discs and facet joints: Disc spaces and facets are within normal limits. Extraspinal findings: Severe scattered atherosclerotic calcifications. Hyperdense left renal cyst. IMPRESSION: Comminuted obliquely oriented L2 vertebral body fracture. Please note that all CT scans at this facility use dose modulation, iterative reconstruction, and/or weight-based dosing when appropriate to reduce radiation dose to as low as reasonably achievable. Dictated by Michael Hernandez MD @ 07/14/2025 10:54:46 [place] [address] Diagnostic Imaging Report Patient: Jose Chan Jr MR#: [id number] : 1940 Acct:[id number] Loc: ED Service Date: 07/14/[address]: Ordering Physician: Surendra Wilson M.D. Date of Service: 07/14/25 Procedure(s): CT head/brain wo con Accession Number(s): [id number] cc: Rome Fuller M.D.; Surendra Wilson M.D.~ For Patients: As a result of the Cures Act, medical imaging exams and procedure reports are released immediately into your electronic medical record. You may view this report before your referring provider. If you have questions, please contact your health care provider. INDICATION: Trauma, fall. TECHNIQUE: CT head without contrast. COMPARISON: MRI brain 02/27/2020. FINDINGS: CSF spaces: Proportionate prominence of the ventricles and sulci, reflecting mild to moderate generalized cerebral volume loss. Brain parenchyma: The graham-white differentiation is maintained. Patchy white matter low attenuation changes, nonspecific but likely reflecting chronic small vessel ischemic disease. No evidence of intracranial hemorrhage, extra-axial collection, or midline shift. Atherosclerotic calcifications of the cavernous carotids and carotid siphons. Skull base and calvarium: The visualized paranasal sinuses and mastoid air cells demonstrate no acute or significant findings. The visualized orbits are grossly unremarkable. No skull fractures. Left TMJ arthrosis. IMPRESSION: No acute intracranial abnormality. Please note that all CT scans at this facility use dose modulation, iterative reconstruction, and/or weight-based dosing when appropriate to reduce radiation dose to as low as reasonably achievable. Dictated by Michael Hernandez MD @ 07/14/2025 10:37:11 [place] [address] Diagnostic Imaging Report Patient: Jose Chan Jr MR#: [id number] : 1940 Acct:[id number] Loc: ED Service Date: 07/14/[address]: Ordering Physician: Surendra Wilson M.D. Date of Service: 07/14/25 Procedure(s): CT cervical spine wo con Accession Number(s): [id number] cc: Rome Fuller M.D.; Surendra Wilson M.D.~ For Patients: As a result of the Cures Act, medical imaging exams and procedure reports are released immediately into your electronic medical record. You may view this report before your referring provider. If you have questions, please contact your health care provider. INDICATION: Trauma, fall. TECHNIQUE: CT cervical spine without contrast. COMPARISON: None. FINDINGS: Vertebrae: Alignment is normal. There are no fractures or suspicious bony lesions. Discs and facet joints: There are diffuse degenerative changes in the disc spaces and facet joints. C3-C7 laminectomies. Extraspinal findings: Paraspinous soft tissues are unremarkable. IMPRESSION: 1. No acute fracture or traumatic subluxation of the cervical spine. 2. Multilevel degenerative spondylosis. Please note that all CT scans at this facility use dose modulation, iterative reconstruction, and/or weight-based dosing when appropriate to reduce radiation dose to as low as reasonably achievable. Dictated by Michael Hernandez MD @ 07/14/2025 10:39:16 PM (Electronically Signed)(Electronically Signed)(Electronically Signed)(Electronically Signed)(Electronically Signed) ECG Data Attestation: I personally reviewed and interpreted this ECG as follows: ECG interpretation date: 07/15/25 Prior ECG tracings: not available for review Interpretation: EKG shows sinus rhythm with occasional PACs, left ventricular hypertrophy and repolarization abnormality, assessment abnormal EKG. Is normal sinus rhythm at 80. Critical Care Time Critical Care Time Critical Care Time: Yes Attestation: The patient required my highest level preparedness to intervene emergently and I personally spent this critical care time directly and personally managing the patient. This critical care time included: Obtaining a history; Examining the patient; Pulse oximetry; Ordering and reviewing of studies; Arranging urgent treatment with development of a management plan; Evaluation of patients response to treatment; Frequent reassessment discussions with other providers. This critical care time was performed to assess and manage the high probability of imminent life-threatening deterioration that could result in multiorgan failure. It was exclusive of separate billable procedures and treating other patients and teaching time. Total Critical Care Time in Minutes: 60 Discharge Plan Discharge Clinical Impression: Multiple fractures of rib involving four or more ribs, Fracture of transverse process of vertebra, Closed wedge compression fracture of L2 vertebra Patient Disposition: [facility] Hospital Discharge Location: [facility] Condition: Guarded Additional Instructions: Transfer to [facility], accepting physician Dr. Lunsford
[2025-07-14] MEDS: ACETAMINOPHEN 500 MG TABLET 1000 MG PO (22:30)
[2025-07-14 22:38] VITALS: BP 157/87; PULSE 76; RESP 17; TEMP 36.1; O2SAT 91
--- NOTE | 2025-07-14 22:57 | CRLHL7_ITS ---
For Patients: As a result of the Century Cures Act, medical imaging exams and procedure reports are released immediately into your electronic medical record. You may view this report before your referring provider. If you have questions, please contact your health care provider. INDICATION: Fall and multiple rib fractures TECHNIQUE: CT chest, abdomen and pelvis acquired with 74 cc of Isovue 370 IV contrast. COMPARISON: Chest CT 02/26/2020 FINDINGS: CHEST: Cardiovascular structures: Heart size is normal. Thoracic aorta and main pulmonary artery are normal in caliber. Mediastinum and lópez: No mass or adenopathy. Lungs and pleura: Small right and trace left pleural effusion with adjacent passive atelectasis. Mild additional dependent lower lobe atelectasis with bilaterally. 2.2 x 1.3 cm nodular airspace opacity within the left lower lobe (3/35). There was a smaller nodular opacity and scarring in this area on the prior CT. Chest wall and axilla: No mass or adenopathy. Bones: Possible acute nondisplaced right posterior 9th and 10th rib fractures. Several old left-sided rib fractures. Age-indeterminate mild T1 superior endplate compression fracture. Complete disc height loss at T9-T10. Chronic-appearing resection versus traumatic deformity of the right proximal clavicular shaft. The distal clavicle is separate from the clavicular head. ABDOMEN AND PELVIS: Liver: Unremarkable. Gallbladder and bile ducts: Unremarkable. Pancreas: Unremarkable. Spleen: Unremarkable. Adrenal glands: Unremarkable. Kidneys: Indeterminate hyperdense 1.8 cm lesion within the left kidney superior pole. No hydronephrosis or stone bilaterally. GI tract: Moderate colonic stool burden. No obstruction. Normal appendix. Vascular structures: Normal caliber abdominal aorta with moderate to heavy atherosclerotic calcification. Lymph nodes: Unremarkable. Miscellaneous: Unremarkable. No free air or significant free fluid. Pelvic Organs: Unremarkable. Bones: No suspicious bone lesions. Unremarkable for age. IMPRESSION: 1. Possible acute nondisplaced right posterior 9th and 10th rib fractures. Age-indeterminate mild T1 superior endplate compression fracture. Recommend correlation with sites for focal tenderness. 2. No other evidence of acute traumatic injury within the chest, abdomen, or pelvis. 3. Indeterminate 1.8 cm hyperdense lesion within the left kidney superior pole. This could represent a proteinaceous/hemorrhagic cyst; however, malignancy can not be excluded. Recommend dedicated outpatient renal CT or MRI for further evaluation, as clinically indicated. 4. 2.2 x 1.3 cm nodular airspace opacity within the left lower lobe, in an area of a previous smaller nodular opacity and scarring, could represent atelectasis, focal pneumonia, or possibly a pulmonary nodule. Recommend follow-up chest CT in 3 months to evaluate for interval change/resolution. Please note that all CT scans at this facility use dose modulation, iterative reconstruction, and/or weight-based dosing when appropriate to reduce radiation dose to as low as reasonably achievable. Dictated by Rudolph Peres MD @ 07/14/2025 11:56:57 PM (Electronically Signed)
[2025-07-14 23:34] LABS: Chloride* 102 mmol/L (96-114); Sodium* 134 mmol/L (135-149)
[2025-07-14 23:35] LABS: Potassium* 3.8 mmol/L (3.6-5.1)
[2025-07-14 23:37] LABS: Blood Urea Nitrogen* 26 mg/dL (7-30); Creatinine* 0.9 mg/dL (0.5-1.5); Est. Creatinine Clearance* 44.40; Estimated Glomerular Filt Rate 83 ml/min
[2025-07-14 23:38] LABS: Anion Gap 6 mEq/L (7-15); Calcium* 9.6 mg/dL (8.4-10.6); Carbon Dioxide* 26 mmol/L (20-32); Glucose* 130 mg/dL (60-115)
[2025-07-14 23:50] LABS: INR 1.11 (0.91-1.10); Prothrombin Time 15.1 Seconds
[2025-07-14 23:52] LABS: Hematocrit 28.8 % (37.0-53.0); Hemoglobin* 9.5 gm/dL (13.5-17.5); Immature Granulocytes Abs Auto 0.04 K/uL (0.00-0.30); Immature Granulocytes Pct Auto 0.4 %; Mean Corpuscular HGB Conc 33 gm/dL (32-36); Mean Corpuscular Hemoglobin 29 pg (26-34); Mean Corpuscular Volume 89 fL (80-100); RDW Coefficient of Variation % 14.0 % (11.5-15.5); Red Blood Count 3.25 m/uL (4.30-5.90); White Blood Count* 8.99 K/uL (4.50-11.00)
[2025-07-14 23:53] LABS: Lymphocytes Absolute Auto 0.70 K/uL (0.90-2.90); Slide Review Reflex No
[2025-07-15 00:31] VITALS: O2SAT 95
[2025-07-15 00:42] VITALS: O2SAT 99
[2025-07-15 02:09] VITALS: PULSE 78; RESP 15; TEMP 36.2; O2SAT 97
== END 2025-07-15 02:07 | disposition short-term general hospital (02) ==
PROVIDERS: Emergency Provider Family Medicine; PCP Family Medicine
DX: S32.029A Unspecified fracture of second lumbar vertebra, initial encounter for closed fracture (principal); S22.059A Unspecified fracture of T5-T6 vertebra, initial encounter for closed fracture; S22.079A Unspecified fracture of T9-T10 vertebra, initial encounter for closed fracture; S22.41XA Multiple fractures of ribs, right side, initial encounter for closed fracture; W10.9XXA Fall (on) (from) unspecified stairs and steps, initial encounter
CPT/HCPCS: 36415; 70450; 71260; 72125; 72128; 72131; 74177; 80048; 85025; 85610; 85730; 93005; 94761; 96374; 99285; 99291; A9270; J1171; Q9967

== ENCOUNTER 2025-07-15 02:01 | Outpatient (CLI) | payer MEDICARE, OTHER, SELFPAY | END 2025-07-15 02:02 | disposition home or self-care (01) | LOC: AMB 07-16 14:48 | PROVIDERS: PCP Family Medicine; Visit Provider Family Medicine | DX: S32.020A Wedge compression fracture of second lumbar vertebra, initial encounter for closed fracture (principal); S42.001A Fracture of unspecified part of right clavicle, initial encounter for closed fracture; S22.49XA Multiple fractures of ribs, unspecified side, initial encounter for closed fracture | CPT/HCPCS: A0425; A0427 ==

== ENCOUNTER 2025-08-20 15:55 | Inpatient (IN) | payer MEDICARE, OTHER, SELFPAY ==
[2025-08-20] VITALS (10 sets, daily range): BP systolic 90–169; BP diastolic 53–75; PULSE 65–117; RESP 18–20; TEMP 36.2–36.7; O2SAT 86–98; BMI 22.8; BMI 19.1
--- OUTSIDE RECORDS SUMMARY | 2025-08-20 15:58 | XMS_ITS | Clinical Summary ---
Author Organization [employer] [facility] [employer] Address [facility] [place] [address] Care Team Providers Care Machine Clipper Name Role Phone Rome Fuller MD Primary Care Provider [phone] Abdulkadir Sandoval Unavailable [phone] Jamar Moss MD Unavailable Rene Villegas MD Unavailable Allergies Active Allergy Reactions Criticality Noted Date [...] by mouth once daily. 09/06/20 24 Active acetaminophen (TYLENOL EXTRA STRGTH) 500 mg tabletIndications :S/P total knee arthroplasty, left Take 2 Tablets (1,000 mg) by mouth every 6 hours. Max acetaminophen dose: 4000mg in 24 hrs. If taking Tylenol PM at night, use that instead of night time dose of regular Tylenol. 200 Tablet 5 11:00 AM BUNDLE CLERK 12/06/19 25 Active sennosides-docusa te (SENOKOT S) (8.6-50 mg) tabletIndications :S/P total knee arthroplasty, left Take 1-3 Tablets by mouth two times daily as needed 100 Tablet 5 11:00 AM BUNDLE CLERK 12/06/19 25 Active aspirin (ECOTRIN) 81 mg enteric coated tabletIndications :S/P total knee arthroplasty, left Take 1 Tablet (81 mg) by mouth two times daily with meals. Take for 6 weeks following surgery, do not stop taking until 6 weeks after surgery. 84 Tablet 5 11:00 AM BUNDLE CLERK 12/06/19 25 Active traZODone (DESYREL) 150 mg tabletIndications :Insomnia, idiopathic Take 1 Tablet (150 mg) by mouth at bedtime. For sleep. 90 Tablet 3 12/16/19 25 Active atorvastatin (LIPITOR) 20 mg tabletIndications :Cerebrovascular accident (CVA) of left thalamus (HC) Take 1 Tablet (20 mg) by mouth at bedtime. For Cholesterol. 90 Tablet 3 01/18/20 25 Active fluticasone (50 mcg per actuation) nasal solution (FLONASE)Indicati ons:Seasonal allergic rhinitis, unspecified trigger Inhale 1 [place] in both nostrils once daily. 48 g [...] stools. 510 g 1 07/05/20 25 Active pantoprazole (PROTONIX) 40 mg delayed-release tabletIndications :Gastroesophageal reflux disease, unspecified whether esophagitis present,Status post surgery Take 1 Tablet (40 mg) by mouth once daily. take before breakfast. 90 Tablet 2 07/27/20 25 Active tamsulosin 0.4 mg capsuleIndication s:Benign prostatic hyperplasia with incomplete bladder emptying Take 1 Capsule (0.4 mg) by mouth once daily after a meal. 90 Capsule 2 08/14/20 25 Active losartan (COZAAR) 25 mg tabletIndications :Nonrheumatic mitral valve regurgitation Take 0.5 Tablets (12.5 mg) by mouth once daily. 45 Tablet 3 08/20/20 25 Active tamsulosin 0.4 mg capsuleIndication s:Benign prostatic hyperplasia with incomplete bladder emptying Take 1 Capsule (0.4 mg) by mouth once daily after a meal. 90 Capsule 2 11/21/19 25 025 Discontin ued(Reord er (E-cancel not sent)) losartan 25 mg tabletIndications :Nonrheumatic mitral valve regurgitation Take 1 Tablet (25 mg) by mouth once daily. 90 Tablet 3 04/24/20 25 025 Discontin ued(*Medi cation adjustmen t) Active Problems Problem Noted Date Diagnosed Date Accidental fall 08/17/2025 Overview (08/17/2025): Jun 2025: fell on stairs, resulting in right-sided rib fractures, L2 vertebral fracture and T6-10 thoracic TP fractures Unilateral primary osteoarthritis, left knee Acquired iron [...] twice daily. February 2024: Due to cost Reyna costellota prescription sent and Removing spiriva and dulera. [...] Encounters Date Type Department Care Team Description 08/20/2025 1:50 PM CDT Office Visit [facility] [address] [place] [address] Rome Fuller MD Hospital F/[place]: 08/19/2025/Had a fall ) 08/19/2025 Travel 08/13/2025 Refill [facility] [address] [place] [address] Rome Fuller MD Refill Request (Tamsulosin HCL 0.4mg caps) 08/04/2025 Lab Requisition [facility] [phone] Radha Yarbrough MD 07/27/2025 Telephone [facility] [address] [facility] [address] [place] [address] Judy Joyner PA Refill Request (PANTOPRAZOLE SODIUM 40 MG TBEC) 07/14/2025 Orders Only [facility] Scanner 1 scan: (1-Ord) [facility], CHEST ABD PELV W/CON, 07/14/2025 07/14/2025 Orders Only [facility] Scanner 1 scan: (1-Ord) [facility], CT LUMBAR SPINE WO CON, 07/14/2025 07/14/2025 Orders Only [facility] Scanner 1 scan: (1-Ord) [facility], THORACIC SPINE WO CON, 07/14/2025 07/14/2025 Orders Only [facility] Scanner 1 scan: (1-Ord) [facility], CERVICAL SPINE WO CON, 07/14/2025 07/14/2025 Orders Only [facility] Scanner 1 scan: (1-Ord) [facility], CT HEAD/BRAIN W/O CONTRAST, 07/14/2025 06/29/2025 Refill [facility] [address] [place] [address] Rome Fuller MD Refill Request (Polyethylene glycol) 06/02/2025 1:30 PM CDT Office Visit [facility] [address] [facility] [address] [place] [address] Judy Joyner PA Surgical Followup 06/02/2025 Travel 05/31/2025 Travel 05/29/2025 10:45 AM CDT Office Visit [facility] [address] [place] [address] Rome Fuller MD Medicare ANNUAL (subsequent) Visit (Age 84) 05/29/2025 Travel 05/26/2025 Telephone [facility] [address] [facility] [address] [place] [address] Judy Joyner PA Refill Request (PANTOPRAZOLE SODIUM 40 MG TBEC) 05/24/2025 Travel from Last 3 Months Immunizations Immunization Administration Dates Next Due AMB INFLUENZA IIV3 (AGE 65+ YRS) PF (Flu Clinic Only) 09/20/2017 AMB Influenza, IIV3 (Age >=3 years)(Flu Clinic Only) 08/14/2012,10/16/2008 Amb Influenza, Inact (High-d ose) (Flu Clinic Only) 08/21/2014 COVID-19 VACCINE SPIKEVAX (M ODERNA 50MCG/0.5ML) 12YO+ PFS 09/11/2024,02/28/2024,09/17/2023 COVID-19 vaccine (Internal Gaming NTech 30mcg/0.3mL) 12YO+ BIVALENT PF, MDV 11/03/2022 COVID-19 vaccine (Internal Gaming NTech 30mcg/0.3mL) 12YO+ MERARI-SUCROSE PF, MDV 04/12/2022 COVID-19 vaccine (SRC Computers[employer] NTech 30mcg/0.3mL) PF, MDV 09/23/2021,01/25/2021,01/04/2021 Influenza A [...] on file Legal Sex Male 6:02 AM BUNDLE CLERK Gender Identity Not on file Sexual Orientation Not on file Obstetrics History Last Filed Vital Signs Vital Sign Reading Time Taken Comments Blood Pressure 104/60 08/20/2025 3:04 PM CDT Pulse 70 08/20/2025 3:04 PM CDT Temperature 36.7 C (98.1 F) 12/06/2024 8:00 AM BUNDLE CLERK Respiratory Rate 18 12/06/2024 8:00 AM BUNDLE CLERK Oxygen Saturation 100% 08/20/2025 3:04 PM CDT Inhaled Oxygen Concentration - - Weight 72.8 kg (160 lb 9.6 oz) 05/29/2025 10:51 AM CDT Height 163.2 cm (5' 4.25) 05/29/2025 10:51 AM C DT Body Mass Index 27.35 05/29/2025 10:51 AM CDT Plan of Treatment Upcoming Encounters Date Type Department Care Team (Late st Contact Info) Description 12/01/2025 10:00 AM BUNDLE CLERK Office Visit [facility] [address] [place] [address] Satish Canela, [address] [place], [place] [id number] Health Maintenance Due Date Last Done Comments Zoster (shingles) series for age 50+ (1 of 2) 1959 COVID-19 vaccine series ( season) 2025 09/11/2024, 02/28/2024, 09/17/2023, Additional history [...] this topic Medical Devices Implanted Type Area Water Treatment Plant Operator Device Identifier Shelf Expiration Date Model / Serial / Lot Cmnt Bone 40g Simplex P Non Atb Mv - [id number] Implanted:Qty: 1 on 09/05/2024 by Satish Canela DO at [facility] Right: Knee [employer] 09/18/2026 6191-1-010 / / [id number] Cmnt Bone 40g Simplex P Non Atb Mv - [id number] Implanted:Qty: 1 on 09/05/2024 by Satish Canela, at [facility] Right: Knee [employer] 07/19/2026 6191-1-010 / / [id number] Baseplate Tib Sz 5 Triathlon Pe - [id number] Implanted:Qty: 1 on 09/05/2024 by Satish Canela DO at [facility] Right: Knee [employer] 03/03/2029 5521-B-500 / / [id number] Fem Rt Sz 5 Triathlon Cruc Retco Cr - [id number] Implanted:Qty: 1 on 09/05/2024 by Satish Canela DO at [facility] Right: Knee [employer] 01/02/2029 5510-F-502 / / [id number] Insert Tib Sz 5 9mm Knee X3 Condylar Stabilizing Triathlon - [id number] Implanted:Qty: 1 on 09/05/2024 by Satish Canela DO at [facility] Right: Knee [employer] 04/16/2029 5531-G-509 -E / / [id number] Implant Patellar [id number] Knee X3 Asymmetric Triathlon - [id number] Implanted:Qty: 1 on 09/05/2024 by Satish Canela DO at [facility] Right: Knee [employer] 12/19/2028 5551-G-381 -E / / [id number] Baseplate Tib Sz 6 Triathlon Pe - [id number] Implanted:Qty: 1 on 12/05/2024 by Satish Canela DO at [facility] Left: Knee [employer] 03/13/2029 5521-B-600 / / [id number] Fem Lt Sz 6 Triathlon Cruc Retco Cr - [id number] Implanted:Qty: 1 on 12/05/2024 by Satish Canela DO at [facility] Left: Knee [employer] 11/19/2028 5510-F-601 / / [id number] Implant Patellar [id number] Knee X3 Asymmetric Triathlon - [id number] Implanted:Qty: 1 on 12/05/2024 by Satish Canela DO at [facility] Left: Knee [employer] 2028 5551-G-381 -E / / [id number] Insert Tib Sz 6 9mm Knee X3 Condylar Stabilizing Triathlon - [id number] Implanted:Qty: 1 on 12/05/2024 by Satish Canela DO at [facility] Left: Knee [employer] 06/25/2029 5531-G-609 -E / / [id number] Cmnt Bone Simplex Hv Us 1 Pack - [id number] Implanted:Qty: 2 on 12/05/2024 by Satish Canela DO at [facility] Left: Knee [employer] 03/18/2026 6194-1-001 / / [id number] Explanted Type Area Water Treatment Plant Operator Device Identifier Shelf Expiration Date Model / Serial / Lot Pin Bone Fix 3.2dev184cy - [id number] Explanted:Qty: 1 on 09/05/[address] [facility] Right: [employer] [id number] / / Inactive See # [id number] Pin Bone Fix [id number] - [id number] Explanted:Qty: 1 on 09/05/[address] [facility] Right: [employer] [id number] / / Pin Bone Fix [id number] Strl - [id number] Explanted:Qty: 1 on 12/05/2024 by Satish Canela DO at [facility] Left: [employer] [id number] / / Pin Bone Fix 3.6inw319cg - [id number] Explanted:Qty: 1 on 12/05/2024 by Satish Canela DO at [facility] Left: Knee [employer] [id number] / / Procedures Procedure Name Priority Date/Time Associated Diagnosis Comments CBC WITH AUTO DIFFERENTIAL Routine 08/05/2025 8:05 AM CDT Essential (primary) hypertension Muscle weakness (generalized) BASIC METABOLIC PANEL Routine 08/05/2025 8:05 AM CDT Essential (primary) hypertension Muscle weakness (generalized) CBC WITH AUTO DIFFERENTIAL Routine 08/05/2025 8:05 AM CDT Essential (primary) hypertension Muscle weakness (generalized) SCAN-CT INTERPRETATION 08/26/202 5 12:00 AM CDT SCAN-CT INTERPRETATION 5 12:00 AM CDT SCAN-CT INTERPRETATION 5 12:00 AM CDT SCAN-CT INTERPRETATION 5 12:00 AM CDT SCAN-CT INTERPRETATION 5 12:00 AM CDT from Last 3 Months Results * (ABNORMAL) CBC WITH AUTO DIFFERENTIAL (08/05/2025 8:05 AM CDT) Pathologist [facility] WHITE BLOOD COUNT 7.9 4.5 - 11.0 thou/cu mm 08/05/2025 8:56 AM [facility] RED BLOOD COUNT 3.30(L) 4.30 - 5.90 mil/cu mm 08/05/2025 8:56 AM [facility] HEMOGLOBIN 8.6(L) 13.5 - 17.5 g/dL 08/05/2025 8:56 AM [facility] HEMATOCRIT 27.4(L) 37.0 - 53.0 % 08/05/2025 8:56 AM [facility] MCV 83 80 - 100 fL 08/05/2025 8:56 AM [facility] MCH 26.1 26.0 - 34.0 pg 08/05/2025 8:56 AM [facility] MCHC 31.4(L) 32.0 - 36.0 g/dL 08/05/2025 8:56 AM [facility] RDW 14.6 11.5 - 15.5 % 08/05/2025 8:56 AM [facility] PLATELET COUNT 419 140 - 440 thou/cu mm 08/05/2025 8:56 AM [facility] MPV 9.9 6.5 - 11.0 fL 08/05/2025 8:56 AM [facility] % NEUT 73.5 % 08/05/2025 8:56 AM [facility] % LYMPH 13.6 % 08/05/2025 8:56 AM [facility] % MONO 10.5 % 08/05/2025 8:56 AM [facility] % EOS 2.3 % 08/05/2025 8:56 AM [facility] % BASO 0.1 % 08/05/2025 8:56 AM [facility] ABSOLUTE NEUTROPHILS 5.8 1.7 - 7.0 thou/cu mm 08/05/2025 8:56 AM [facility] ABSOLUTE LYMPHOCYTES 1.1 0.9 - 2.9 thou/cu mm 08/05/2025 8:56 AM [facility] ABSOLUTE MONOCYTES 0.8 <0.9 thou/cu mm 08/05/2025 8:56 AM [facility] ABSOLUTE EOSINOPHILS 0.2 <0.5 thou/cu mm 08/05/2025 8:56 AM [facility] ABSOLUTE BASOPHILS 0.0 <0.3 thou/cu mm 08/05/2025 8:56 AM [facility] Blood BLOOD SPECIMEN / Unknown Venipuncture / Unknown 08/05/2025 8:05 AM CDT 08/05/2025 8:33 AM CDT us Radha Yarbrough MD HEMATOLOGY Final Result [facility] [address] [place] [id number] * (ABNORMAL) BASIC METABOLIC PANEL (08/05/2025 8:05 AM CDT) SODIUM 138 136 - 145 mmol/L 08/05/2025 9:06 AM [facility] POTASSIUM 3.9 3.5 - 5.1 mmol/L 08/05/2025 9:06 AM [facility] CHLORIDE 105 98 - 107 mmol/L 08/05/2025 9:06 AM [facility] CO2,TOTAL 22 22 - 29 mmol/L 08/05/2025 9:06 AM [facility] ANION GAP 11 5 - 18 08/05/2025 9:06 AM [facility] GLUCOSE 96 70 - 99 mg/dL 08/05/2025 9:06 AM [facility] CALCIUM 9.1 8.8 - 10.4 mg/dL 08/05/2025 9:06 AM [facility] Comment: Reference ranges for this test were updated on 09/23/2024 to reflect our healthy population more accurately. Reference range changes are not retroactively applied to results, but previous results using the same methodology can be interpreted in the context of the new reference range. BUN 19 8 - 23 mg/dL 08/05/2025 9:06 AM [facility] CREATININE 0.83 0.70 - 1.20 mg/dL 08/05/2025 9:06 AM [facility] BUN/CREAT RATIO 23(H) 10 - 20 9:06 AM [facility] eGFR 85(L) >90 mL/min/1.7 3m2 08/05/2025 9:06 AM [facility] Comment:As of 2022, eG FR is calculated by the CKD-EPI creatinine equation without race adjustment. eGFR can be influenced by muscle mass, exercise, and diet. The reported eGFR is an estimation only and is only applicable if the renal function is stable. Blood BLOOD SPECIMEN / Unknown Venipuncture / Unknown 08/05/2025 8:05 AM CDT 08/05/2025 8:33 AM CDT Radha Yarbrough MD CHEMISTRY Final Result [facility] [address] [place] [address] * SCAN-CT INTERPRETATION (07/14/2025 12:00 AM CDT) Only the most recent of5 resultswithin the time period is included. Anatomical Region Laterality Modality Other us Scanner OTHER Final Result from Last 3 Months Additional Health Concerns Infection Onset Date Last Indicated MDRO Clearance Comment:Infection Control Note: Hx of ESBL, surveillance criteria met, no need for further testing or isolation precautions. Do not delete or resolve the Infection Flag. +ESBL E. coli 1/19/22 urine 09/04/2024 09/04/2024 Insurance [employer] MR PB ONLY MEDICARE PART A HB ONLY [...] Preferences, Provider to review later Care Teams Machine Clipper Relationship Specialty Start Date End Date Rome Fuller MD [address] [place] [id number] PCP - General Family Practice 08/23/23 Abdulkadir Sandoval MBBS [address] [address] Oncology Oncology 11/05/23 Jamar Moss MD [address] [employer] [facility] [address] [place] [address] Urology Surgery - Urology 11/05/23 Rene Villegas MD [address] [place] [address] Cardiology Cardiovascular Disease 05/29/25
--- OUTSIDE RECORDS SUMMARY | 2025-08-20 15:58 | XMS_ITS | CCD ---
Author Name Interface, [id number] lity Address [address] [facility] [address] [address] Organization [facility] Address [address] [facility] [address] [address] Care Team Providers Care Cna Instructor Name Role Phone Abdulkadir Campo Unavailable Unavailable Allergies and Adverse Reactions Medication/Group Name Reaction Severity Date Penicillins 04/03/2025 Wellbutrin 04/03/2025 Care Plan Date Type Value 09/01/2025 APPOINTMENT OV 20 MIN 08/21/2025 APPOINTMENT LAB 15 MIN 08/04/2025 APPOINTMENT OV 20 MIN 07/28/2025 APPOINTMENT LAB 10 MIN 04/03/2025 APPOINTMENT OV 20 MIN 03/27/2025 APPOINTMENT LAB 15 MIN 03/27/2025 APPOINTMENT LAB 15 MIN 11/20/2024 APPOINTMENT INJECTION 15 MIN 11/20/2024 APPOINTMENT OV 20 MIN 11/17/2024 APPOINTMENT LAB 10 MIN 11/17/2024 LABORDER PSA diagnostic p destiny 11/17/2024 LABORDER CMP 11/17/2024 LABORDER CBC w/ auto diff 03/27/2025 LABORDER PSA diagnostic p destiny 03/27/2025 LABORDER Ferritin panel 03/27/2025 LABORDER CBC w/ auto diff 03/27/2025 LABORDER CMP 08/21/2025 LABORDER Ferritin panel 08/21/2025 LABORDER CMP 08/21/2025 LABORDER CBC w/ auto diff 08/21/2025 LABORDER PSA diagnostic p destiny Reason for Visit OV 20 MIN Encounters Date Name 08/21/2025 Primary malignant ne oplasm of prostate (disorder) 08/21/2025 Anemia 08/21/2025 Insomnia, persistent 08/21/2025 Secondary malignant neoplasm of lung (disorder) 08/21/2025 Urine nitrite positi ve 08/21/2025 GERD 08/21/2025 Secondary malignant neoplasm of bone (disorder) 08/21/2025 Acquired iron defici ency anemia due to decreased absorption 09/01/2025 OV 20 MIN 08/21/2025 LAB 15 MIN Functional Status Date Name/Question Score/Answer 08/03/2021 ECOG performance status - grade 1 1 07/25/2025 Are you deaf, or do you have ser ious difficulty hearing? No 07/25/2025 Are you blind or do you have serious difficulty seeing, even when wearing glasses? No 07/25/2025 Because of a physica l, mental, or emotional condition, do you have serious difficulty concentrating, remembering, or making decisions? No 07/25/2025 Do you have serious difficulty w alking or climbing stairs? Yes 07/25/2025 Do you have difficulty dressing or bathing? No 07/25/2025 Because of a physica l, mental, or emotional condition, do you have difficulty doing errands alone such as visiting a physician's office or shopping? No Diagnostic Results Date Type Test Units Lower Limit Upper Limit Result Flag Comments Status Ordered By Specimen Source Lab Address 03/27 CBC w/ auto diff [place] # (ANC) K/uL 1.6 6.6 2.8 [facility]AL [facility] [address] [place] [address] [address] [facility] [id number] 0 03/27 CBC w/ auto diff IG % % 0.0 0.5 0.0 Formerly [facility] , [address] [place] [address] [address] [facility] [id number] 0 03/27 CBC w/ auto diff MO # K/uL 0.2 1.3 0.5 [facility]ly [facility] , [address] [place] [address] [address] [facility] [id number] 0 03/27 CBC w/ auto diff MCV fL 80.0 104.0 95.0 FINAL [facility] [place] [facility] [place] [facility] , [address] [place] [id number] 0 03/27 CBC w/ auto diff IG # K/uL 0.0 0.03 0.00 FINAL Abdulkadir Sandoval [place] [facility] [place] [facility] , [address] [place] [id number] 0 03/27 CBC w/ auto diff MO % % 6.0 15.0 11.3 FINAL Abdulkadir Sandoval [place] [facility] [place] [facility] , [address] [place] [id number] 0 03/27 CBC w/ auto diff EO # K/uL 0.0 0.6 0.1 FINAL Abdulkadir Jaime [place] [facility] [place] [facility] , [address] [place] [id number] 0 03/27 CBC w/ auto diff EO % % 0.0 7.0 1.5 FINAL Abdulkadir Jaime [place] [facility] [place] [facility] , [address] [place] [id number] 0 03/27 CBC w/ auto diff MPV fL 9.5 13.4 10.1 FINAL Abdulkadir Sandoval [place] [facility] [place] [facility] , [address] [place] [id number] 0 03/27 CBC w/ auto diff RBC M/uL 4.2 5.6 4.19 Low FINAL Abdulkadir Sandoval [place] [facility] [place] [facility] , [address] [place] [id number] 0 03/27 CBC w/ auto diff WBC K/uL 3.0 8.9 4.6 FINAL Abdulkadir Sandoval [place] [facility] [place] [facility] , [address] [place] [id number] 0 03/27 CBC w/ auto diff PLT K/uL 113.0 364.0 178 FINAL Abdulkadir Sandoval [place] [facility] [place] [facility] , [address] [place] [id number] 0 03/27 CBC w/ auto diff BA % % 0.0 2.0 0.7 FINAL Abdulkadir Sandoval [place] [facility] [place] [facility] , [address] [place] [id number] 0 03/27 CBC w/ auto diff BA # K/uL 0.0 0.2 0.0 FINAL Abdulkadir Sandoval [place] [facility] [place] [facility] , [address] [place] [id number] 0 03/27 CBC w/ auto diff HGB g/dL 12.5 16.6 13.0 FINAL Abdulkadir Jaime [place] [facility] [place] [facility] , [address] [place] [id number] 0 03/27 CBC w/ auto diff RDW % 11.3 15.6 13.30 FINAL Abdulkadir Jaime [place] [facility] [place] [facility] , [address] [place] [id number] 0 03/27 CBC w/ auto diff LY % % 14.0 41.0 25.4 FINAL Abdulkadir Sandoval [place] [facility] [place] [facility] , [address] [place] [id number] 0 03/27 CBC w/ auto diff LY # K/uL 0.4 3.6 1.2 FINAL Abdulkadir Sandoval [place] [facility] [place] [facility] , [address] [place] [id number] 0 03/27 CBC w/ auto diff MCH pg 26.0 35.0 31.0 FINAL Abdulkadir Jaime [place] [facility] [place] [facility] , [address] [place] [id number] 0 03/27 CBC w/ auto diff MCHC g/dL 30.0 35.0 32.7 FINAL Abdulkadir Jaime [place] [facility] [place] [facility] , [address] [place] [id number] 0 03/27 CBC w/ auto diff NRBC % #/100W BC 0.0 0.2 0.0 FINAL Abdulkadir Jaime [place] [facility] [place] [facility] , [address] [place] [id number] 0 03/27 CBC w/ auto diff HCT % 39.0 49.0 39.8 FINAL Abdulkadir Jaime [place] [facility] [place] [facility] , [address] [place] [id number] 0 03/27 CBC w/ auto diff [place] % % 43.0 74.0 61.1 FINAL Abdulkadir Jaime [place] [facility] , [address] [place] [id number] 0 03/27 CMP Alkal ine phosp hatas e U/L 36.0 125.0 111 FINAL Abdulkadir [place] * [place] [facility] [place] [facility] , [address] [facility] [id number] 0 03/27 CMP ALT/S GPT U/L 0.0 49.0 20 FINAL Abdulkadir Sandoval * [place] [facility] [place] [facility] , [address] [facility] [id number] 0 03/27 CMP Calci um mg/dL 8.4 10.2 9.4 FINAL Abdulkadir [place] * [facility] , [address] [facility] [id number] 0 03/27 CMP GFR estim ate ml/min /1.73m ^2 73.1 GFR is calculate d using the CKD-EPI equation. FINAL Abdulkadir [place] * [facility] , [address] [facility] [address] [facility] [id number] 0 03/27 CMP CO2 mmol/L 22.0 30.0 [...] hour stability window. FINAL Abdulkadir Sandoval * [facility] , [address] [facility] [address] [facility] [id number] 0 03/27 CMP Gluco se mg/dL 74.0 100.0 81 FINAL Abdulkadir [place]oval * [facility] , [address] [facility] [address] [id number] 0 03/27 CMP Chlor narinder mmol/L 96.0 107.0 101 FINAL Abdulkadir Sandoval * [facility] , [address] [facility] [id number] 0 03/27 CMP Total prote in g/dL 6.3 8.2 6.6 FINAL Abdulkadir Sandoval * [facility] , [address] [facility] [address] [facility] [id number] 0 03/27 CMP BUN mg/dL 9.0 20.0 21.0 High FINAL Abdulkadir Sandoval * [facility] , [address] [facility] [address] [facility] [id number] 0 03/27 CMP Creat inine mg/dL 0.66 1.25 1.00 FINAL Abdulkadir Sandoval * [facility] , [address] [facility] [address] [id number] 0 03/27 CMP AST/S GOT U/L 17.0 59.0 40 FINAL Abdulkadir [place] * [facility] , [address] [facility] [address] [id number] 0 03/27 CMP Album in g/dL 3.5 5.0 4.2 FINAL Abdulkadir Sandoval * [facility] , [address] [facility] [address] [id number] 0 03/27 CMP Bilir ubin, total mg/dL 0.2 1.3 0.3 FINAL Abdulkadir Sandoval * [facility] , [address] [facility] [id number] 0 03/27 CMP Sodiu m mmol/L 137.0 145.0 139 FINAL Abdulkadir Sandoval * [facility] , [facility] [address] [id number] 0 03/27 CMP Potas sium mmol/L 3.5 5.1 4.3 FINAL Abdulkadir Sandoval * [facility] , [address] [facility] [address] [id number] 0 08/05 [facility] other lab See chainstitch elastic attacher d 03/27 PSA diagn ostic panel PSA ng/ml 0.0 3.9 0.33 Test performed at [facility] on a 99tests0 Immunoass ay Analyzer that uses an immunomet yuko immunoass ay technique . Patient testing should not be performed using multiple malik plaza due to analytica l variation seen between test methodunruly plaza. FINAL Abdulkadir Sandoval * [facility] , [facility] [facility] [id number] 0 03/27 Di tin panel Di tin ng/mL 17.9 464.0 27.20 FINAL Abdulkadir Jaime * [facility] , [address] [facility] [id number] Medications Date Name Route Dose Frequency Instructions Start Date End Date Status Fill Status Indication 04/28 Naproxe n Sodium Oral 1.0 tablet prn pain active 04/28 Tiotrop ium Inhaler 18 mcg inhaled 18.0 mcg daily puncture 1 cap using device; one dose = 2 inhalations inactive 04/28 Aspirin Oral orally 81.0 mg daily active 11/08 Mometas one-For moterol HFA Inhaler 100 mcg-5 mcg/act uation BID inactive 07/25 Famotid ine Oral daily stopped 04/28 Polyeth ylene Glycol Oral Powder gram/d ose either 1/2 dose daily or full dose every other night prn constipation active 07/25 Cyclobe nzaprin e Oral PRN active 04/28 Diphenh ydramin e-Aceta minophe n Oral 25 mg-500 mg 1.0 tablet prn insomnia active 04/28 Bicalut amide Oral orally 50.0 mg daily stopped 04/28 Tamsulo sin Oral orally 0.4 mg daily inactive 04/28 Omepraz ole Oral Delayed Release Tablet orally 20.0 mg daily stopped 08/12 Flutica sone-Um eclidin -Vilant er Inhaler 100 mcg-62. 5 mcg-25 mcg/act uation QD 1 puff QD active 11/08 Tamsulo sin Oral QD active 04/28 Eszopic lone Oral orally 2.0 mg every day at bedtime stopped 04/28 Flutica sone-Sa lmetero l Inhaler 250 mcg-50 mcg/Dos e inhaled 1.0 every 12 hours stopped 07/25 Hydroco done-Ac etamino phen Oral 10 mg-325 mg PRN active 04/02 methylp redniso lone 2000 MG Injecti on intrave nously 125.0 mg Re-initiate treatment only upon physician approval. 2026 active Primary malignant neoplasm of prostate (disorder) 04/02 hydroco rtisone 100 MG Injecti on intrave nously 100.0 mg Re-initiate treatment only upon physician approval. 2026 active Primary malignant neoplasm of prostate (disorder) 04/02 0.375 ML leuprol narinder acetate 60 MG/ML Prefill ed Syringe subcuta neously 22.5 mg once 2026 active Primary malignant neoplasm of prostate (disorder) 04/02 1 ML epineph rine 1 MG/ML Injecti on intramu scularl y 0.3 mg once Re-initiate treatment only upon physician approval. 2026 active Primary malignant neoplasm of prostate (disorder) 04/02 famotid ine 10 MG/ML Injecta ble Solutio n intrave nously 20.0 mg Re-initiate treatment only upon physician approval. 2026 active Primary malignant neoplasm of prostate (disorder) 04/02 diphenh ydramin e hydroch loride 0.5 MG/ML Injecta ble Solutio n intrave nously 50.0 mg Re-initiate treatment only upon physician approval. 2026 active Primary malignant neoplasm of prostate (disorder) 04/02 diphenh ydramin e hydroch loride 0.5 MG/ML Injecta ble Solutio n intrave nously 50.0 mg Re-initiate treatment only upon physician approval. 2026 active Primary malignant neoplasm of prostate (disorder) 04/02 famotid ine 10 MG/ML Injecta ble Solutio n intrave nously 20.0 mg Re-initiate treatment only upon physician approval. 2026 active Primary malignant neoplasm of prostate (disorder) 04/02 methylp redniso lone 2000 MG Injecti on intrave nously 125.0 mg Re-initiate treatment only upon physician approval. 2026 active Primary malignant neoplasm of prostate (disorder) 04/02 1 ML epineph rine 1 MG/ML Injecti on intramu scularl y 0.3 mg once Re-initiate treatment only upon physician approval. 2026 active Primary malignant neoplasm of prostate (disorder) 04/02 hydroco rtisone 100 MG Injecti on intrave nously 100.0 mg Re-initiate treatment only upon physician approval. 2026 active Primary malignant neoplasm of prostate (disorder) 04/02 0.375 ML leuprol narinder acetate 60 MG/ML Prefill ed Syringe subcuta neously 22.5 mg once 2026 active Primary malignant neoplasm of prostate (disorder) 04/02 1 ML epineph rine 1 MG/ML Injecti on intramu scularl y 0.3 mg once Re-initiate treatment only upon physician approval. 2026 active Primary malignant neoplasm of prostate (disorder) 04/02 0.375 ML leuprol narinder acetate 60 MG/ML Prefill ed Syringe subcuta neously 22.5 mg once 2026 active Primary malignant neoplasm of prostate (disorder) 04/02 famotid ine 10 MG/ML Injecta ble Solutio n intrave nously 20.0 mg Re-initiate treatment only upon physician approval. 2026 active Primary malignant neoplasm of prostate (disorder) 04/02 hydroco rtisone 100 MG Injecti on intrave nously 100.0 mg Re-initiate treatment only upon physician approval. 2026 active Primary malignant neoplasm of prostate (disorder) 04/02 methylp redniso lone 2000 MG Injecti on intrave nously 125.0 mg Re-initiate treatment only upon physician approval. 2026 active Primary malignant neoplasm of prostate (disorder) 04/02 diphenh ydramin e hydroch loride 0.5 MG/ML Injecta ble Solutio n intrave nously 50.0 mg Re-initiate treatment only upon physician approval. 2026 active Primary malignant neoplasm of prostate (disorder) 04/02 0.375 ML leuprol narinder acetate 60 MG/ML Prefill ed Syringe subcuta neously 22.5 mg once 2026 active Primary malignant neoplasm of prostate (disorder) 04/02 famotid ine 10 MG/ML Injecta ble Solutio n intrave nously 20.0 mg Re-initiate treatment only upon physician approval. 2026 active Primary malignant neoplasm of prostate (disorder) 04/02 1 ML epineph rine 1 MG/ML Injecti on intramu scularl y 0.3 mg once Re-initiate treatment only upon physician approval. 2026 active Primary malignant neoplasm of prostate (disorder) 04/02 methylp redniso lone 2000 MG Injecti on intrave nously 125.0 mg Re-initiate treatment only upon physician approval. 2026 active Primary malignant neoplasm of prostate (disorder) 04/02 diphenh ydramin e hydroch loride 0.5 MG/ML Injecta ble Solutio n intrave nously 50.0 mg Re-initiate treatment only upon physician approval. 2026 active Primary malignant neoplasm of prostate (disorder) 04/02 hydroco rtisone 100 MG Injecti on intrave nously 100.0 mg Re-initiate treatment only upon physician approval. 2026 active Primary malignant neoplasm of prostate (disorder) 04/02 0.375 ML leuprol narinder acetate 60 MG/ML Prefill ed Syringe subcuta neously 22.5 mg once 2025 active Primary malignant neoplasm of prostate (disorder) 04/02 methylp redniso lone 2000 MG Injecti on intrave nously 125.0 mg Re-initiate treatment only upon physician approval. 2025 active Primary malignant neoplasm of prostate (disorder) 04/02 diphenh ydramin e hydroch loride 0.5 MG/ML Injecta ble Solutio n intrave nously 50.0 mg Re-initiate treatment only upon physician approval. 2025 active Primary malignant neoplasm of prostate (disorder) 04/02 hydroco rtisone 100 MG Injecti on intrave nously 100.0 mg Re-initiate treatment only upon physician approval. 2025 active Primary malignant neoplasm of prostate (disorder) 04/02 1 ML epineph rine 1 MG/ML Injecti on intramu scularl y 0.3 mg once Re-initiate treatment only upon physician approval. 2025 active Primary malignant neoplasm of prostate (disorder) 04/02 famotid ine 10 MG/ML Injecta ble Solutio n intrave nously 20.0 mg Re-initiate treatment only upon physician approval. 2025 active Primary malignant neoplasm of prostate (disorder) 04/02 famotid ine 10 MG/ML Injecta ble Solutio n intrave nously 20.0 mg Re-initiate treatment only upon physician approval. 2025 active Primary malignant neoplasm of prostate (disorder) 04/02 0.375 ML leuprol narinder acetate 60 MG/ML Prefill ed Syringe subcuta neously 22.5 mg once 2025 active Primary malignant neoplasm of prostate (disorder) 04/02 1 ML epineph rine 1 MG/ML Injecti on intramu scularl y 0.3 mg once Re-initiate treatment only upon physician approval. 2025 active Primary malignant neoplasm of prostate (disorder) 04/02 methylp redniso lone 2000 MG Injecti on intrave nously 125.0 mg Re-initiate treatment only upon physician approval. 2025 active Primary malignant neoplasm of prostate (disorder) 04/02 diphenh ydramin e hydroch loride 0.5 MG/ML Injecta ble Solutio n intrave nously 50.0 mg Re-initiate treatment only upon physician approval. 2025 active Primary malignant neoplasm of prostate (disorder) 04/02 hydroco rtisone 100 MG Injecti on intrave nously 100.0 mg Re-initiate treatment only upon physician approval. 2025 active Primary malignant neoplasm of prostate (disorder) 04/02 1 ML epineph rine 1 MG/ML Injecti on intramu scularl y 0.3 mg once Re-initiate treatment only upon physician approval. 2025 active Primary malignant neoplasm of prostate (disorder) 04/02 hydroco rtisone 100 MG Injecti on intrave nously 100.0 mg Re-initiate treatment only upon physician approval. 2025 active Primary malignant neoplasm of prostate (disorder) 04/02 methylp redniso lone 2000 MG Injecti on intrave nously 125.0 mg Re-initiate treatment only upon physician approval. 2025 active Primary malignant neoplasm of prostate (disorder) 04/02 diphenh ydramin e hydroch loride 0.5 MG/ML Injecta ble Solutio n intrave nously 50.0 mg Re-initiate treatment only upon physician approval. 2025 active Primary malignant neoplasm of prostate (disorder) 04/02 famotid ine 10 MG/ML Injecta ble Solutio n intrave nously 20.0 mg Re-initiate treatment only upon physician approval. 2025 active Primary malignant neoplasm of prostate (disorder) 04/02 0.375 ML leuprol narinder acetate 60 MG/ML Prefill ed Syringe subcuta neously 22.5 mg once 2025 active Primary malignant neoplasm of prostate (disorder) 04/02 1 ML epineph rine 1 MG/ML Injecti on intramu scularl y 0.3 mg once Re-initiate treatment only upon physician approval. 2025 active Primary malignant neoplasm of prostate (disorder) 04/02 diphenh ydramin e hydroch loride 0.5 MG/ML Injecta ble Solutio n intrave nously 50.0 mg Re-initiate treatment only upon physician approval. 2025 active Primary malignant neoplasm of prostate (disorder) 04/02 methylp redniso lone 2000 MG Injecti on intrave nously 125.0 mg Re-initiate treatment only upon physician approval. 2025 active Primary malignant neoplasm of prostate (disorder) 04/02 famotid ine 10 MG/ML Injecta ble Solutio n intrave nously 20.0 mg Re-initiate treatment only upon physician approval. 2025 active Primary malignant neoplasm of prostate (disorder) 04/02 0.375 ML leuprol narinder acetate 60 MG/ML Prefill ed Syringe subcuta neously 22.5 mg once 2025 active Primary malignant neoplasm of prostate (disorder) 04/02 hydroco rtisone 100 MG Injecti on intrave nously 100.0 mg Re-initiate treatment only upon physician approval. 2025 active Primary malignant neoplasm of prostate (disorder) 04/02 1 ML epineph rine 1 MG/ML Injecti on intramu scularl y 0.3 mg once Re-initiate treatment only upon physician approval. 2024 active Primary malignant neoplasm of prostate (disorder) 04/02 methylp redniso lone 2000 MG Injecti on intrave nously 125.0 mg Re-initiate treatment only upon physician approval. 2024 active Primary malignant neoplasm of prostate (disorder) 04/02 hydroco rtisone 100 MG Injecti on intrave nously 100.0 mg Re-initiate treatment only upon physician approval. 2024 active Primary malignant neoplasm of prostate (disorder) 04/02 diphenh ydramin e hydroch loride 0.5 MG/ML Injecta ble Solutio n intrave nously 50.0 mg Re-initiate treatment only upon physician approval. 2024 active Primary malignant neoplasm of prostate (disorder) 04/02 0.375 ML leuprol narinder acetate 60 MG/ML Prefill ed Syringe subcuta neously 22.5 mg once 2024 active Primary malignant neoplasm of prostate (disorder) 04/02 famotid ine 10 MG/ML Injecta ble Solutio n intrave nously 20.0 mg Re-initiate treatment only upon physician approval. 2024 active Primary malignant neoplasm of prostate (disorder) 04/02 hydroco rtisone 100 MG Injecti on intrave nously 100.0 mg Re-initiate treatment only upon physician approval. 2024 active Primary malignant neoplasm of prostate (disorder) 04/02 diphenh ydramin e hydroch loride 0.5 MG/ML Injecta ble Solutio n intrave nously 50.0 mg Re-initiate treatment only upon physician approval. 2024 active Primary malignant neoplasm of prostate (disorder) 04/02 methylp redniso lone 2000 MG Injecti on intrave nously 125.0 mg Re-initiate treatment only upon physician approval. 2024 active Primary malignant neoplasm of prostate (disorder) 04/02 1 ML epineph rine 1 MG/ML Injecti on intramu scularl y 0.3 mg once Re-initiate treatment only upon physician approval. 2024 active Primary malignant neoplasm of prostate (disorder) 04/02 0.375 ML leuprol narinder acetate 60 MG/ML Prefill ed Syringe subcuta neously 22.5 mg once 2024 active Primary malignant neoplasm of prostate (disorder) 04/02 famotid ine 10 MG/ML Injecta ble Solutio n intrave nously 20.0 mg Re-initiate treatment only upon physician approval. 2024 active Primary malignant neoplasm of prostate (disorder) 06/15 ascorbi c acid 125 MG / iron carbony l 65 MG Delayed Release Oral Tablet [Vitron -C Reformu lated May 2016] orally 1.0 tab 2 times per week 2024 active Anemia 04/02 0.375 ML leuprol narinder acetate 60 MG/ML Prefill ed Syringe subcuta neously 22.5 mg once 2024 active Primary malignant neoplasm of prostate (disorder) 04/02 methylp redniso lone 2000 MG Injecti on intrave nously 125.0 mg Re-initiate treatment only upon physician approval. 2024 active Primary malignant neoplasm of prostate (disorder) 04/02 diphenh ydramin e hydroch loride 0.5 MG/ML Injecta ble Solutio n intrave nously 50.0 mg Re-initiate treatment only upon physician approval. 2024 active Primary malignant neoplasm of prostate (disorder) 04/02 famotid ine 10 MG/ML Injecta ble Solutio n intrave nously 20.0 mg Re-initiate treatment only upon physician approval. 2024 active Primary malignant neoplasm of prostate (disorder) 04/02 hydroco rtisone 100 MG Injecti on intrave nously 100.0 mg Re-initiate treatment only upon physician approval. 2024 active Primary malignant neoplasm of prostate (disorder) 04/02 1 ML epineph rine 1 MG/ML Injecti on intramu scularl y 0.3 mg once Re-initiate treatment only upon physician approval. 2024 active Primary malignant neoplasm of prostate (disorder) 04/02 1 ML epineph rine 1 MG/ML Injecti on intramu scularl y 0.3 mg once Re-initiate treatment only upon physician approval. 2024 active Primary malignant neoplasm of prostate (disorder) 04/02 methylp redniso lone 2000 MG Injecti on intrave nously 125.0 mg Re-initiate treatment only upon physician approval. 2024 active Primary malignant neoplasm of prostate (disorder) 04/02 famotid ine 10 MG/ML Injecta ble Solutio n intrave nously 20.0 mg Re-initiate treatment only upon physician approval. 2024 active Primary malignant neoplasm of prostate (disorder) 04/02 diphenh ydramin e hydroch loride 0.5 MG/ML Injecta ble Solutio n intrave nously 50.0 mg Re-initiate treatment only upon physician approval. 2024 active Primary malignant neoplasm of prostate (disorder) 04/02 hydroco rtisone 100 MG Injecti on intrave nously 100.0 mg Re-initiate treatment only upon physician approval. 2024 active Primary malignant neoplasm of prostate (disorder) 04/02 0.375 ML leuprol narinder acetate 60 MG/ML Prefill ed Syringe subcuta neously 22.5 mg once 2024 active Primary malignant neoplasm of prostate (disorder) 03/31 diphenh ydramin e hydroch loride 0.5 MG/ML Injecta ble Solutio n intrave nously 50.0 mg Re-initiate treatment only upon physician approval. 11/20 on hold Primary malignant neoplasm of prostate (disorder) 03/31 famotid ine 10 MG/ML Injecta ble Solutio n intrave nously 20.0 mg Re-initiate treatment only upon physician approval. 11/20 on hold Primary malignant neoplasm of prostate (disorder) 03/31 1 ML epineph rine 1 MG/ML Injecti on intramu scularl y 0.3 mg once Re-initiate treatment only upon physician approval. 11/20 on hold Primary malignant neoplasm of prostate (disorder) 03/31 0.375 ML leuprol narinder acetate 60 MG/ML Prefill ed Syringe subcuta neously 22.5 mg once 11/20 on hold Primary malignant neoplasm of prostate (disorder) 03/31 methylp redniso lone 2000 MG Injecti on intrave nously 125.0 mg Re-initiate treatment only upon physician approval. 11/20 on hold Primary malignant neoplasm of prostate (disorder) 03/31 hydroco rtisone 100 MG Injecti on intrave nously 100.0 mg Re-initiate treatment only upon physician approval. 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 Ordered 11/20/2024 Physician Order RTC nurse for injection Labs pr ior to appt. Ordered 04/03/2025 Physician Order RTC MD Labs prior to appt. Ordered 08/04/2025 Physician Order RTC MD Labs prior to appt. Ordered Social History Date Name Value 11/20/2024 Smoking Status Former smoker 11/05/2024 Sex Male Visits Date Type Value 09/01/2025 OV 20 MIN 08/21/2025 LAB 15 MIN Vital Signs Date Type Value 11/20/2024 Body Temperature 96.60 11/20/2024 Heart Beat [...] Heart Beat 63.00 04/03/2025 Pain Scale 0.00 Notes Section * Med Onc Follow-up Note Patient Name: ISABEL MCCALLUM Date Of : 1940 Today's Provider:?Abdulkadir GALLEGOS Date of Service:?04/03/2025 Attending Physician:?Abdulkadir Sandoval (Medical Oncology) Referring Provider: Jamar Moss MD (Urology) HEMATOLOGY/ MEDICAL ONCOLOGY FOLLOW UP VISIT Reason for Visit * Prostate cancer.? 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 * Stable 1.7 cm solid mass left kidney.? * Anemia:?Iron deficiency Assessment * Metastatic prostate cancer * Current treatment with apalutamide and ADT since November 2021. * Patient reported that he is tolerating treatment well he has mild side effects occasional hot flashsome fatigue.?Also he had some cytopenias and anemia requiring dose reduction.?Since reducingdose of apalutamide to?120 mg daily his tolerated treatment better.? * Patient returns for planned follow-up.?In the past he had treatment with apalutamide and ADT?patient is on a treatment break since October 2023 due to fatigue and anemia.?Patient had 1 injection of Lupron in?May 2024 as his PSA became?barely detectable.?Patient returns for planned follow-up he is doing well continues to be fatigued but his symptoms have stabilized since he stopped ADT since I last saw him he had surgery for knee replacement and his knee pain has improved denies any other symptoms today.? 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 * We will continue to monitor bone disease with periodic imaging studies.?Since he has castrate sensitive disease does not need bisphosphonates.? 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 * Remained stable no significant shortness of breath.? * Insomnia. * Patient continues to drink significant amount of coffee despite multiple intervention remains to have insomnia.? * Stable left kidney mass * Being followed by urology.? * Anemia of chronic disease.? * Patient has gradual worsening of anemia over the last?few months?today hemoglobin was 9.7.? * In October?2022 patient was started on oral iron?which she is currently taking,?he was also referred for gastroenterology and?he has a colonoscopy coming up in next month.?Patientdenies any blood in his stools denies any abdominal pain.?B12 folic acid?immunofixation was normal.? Plan * Patient's PSA was 0.33 I explained that this is positive but not clinically meaningful I recommended that we extend his treatment break if there is short PSA doubling time we will resume treatment with ADT.? * Will continue monitoring off treatment we will plan a follow-up in 3 to 4 months with repeat labs.? * Apalutamide is on hold as well. * I advised him to reduce iron to once or twice a week?for maintenance. * Patient will continue urology follow-up for solid mass in left kidney.? Advanced Care Planning Not discussed at this visit. Pain Scale on Today's Visit Not recorded on today's visit Pain Plan on Today's Visit No pain plan indicated for today's visit Smoking Status Smoking Tobacco : Former smoker; Smokeless Tobacco : Never used smokeless tobacco; Vaping : Never vaped Depression Screening Tool Status Screening Date: 04/03/2025; Plan: Patient declined treatment History of Present Illness * Patient pleasant 80-year-old?gentleman who is accompanied by his daughter. * 04/11/2021:?Patient was referred to Dr. Jamar Moss,?due to 6-month history of urinary frequency urgency and nocturia.? Patient been taking oxybutynin 5 mg daily without any benefit.? * 04/11/2021:?Patient PSA came back at 327. * 04/19/2021:?Whole-body bone scan showed diffuse skeletal metastasis greatest activity in thoracic and lumbar spine as well as left scapula.? CT scan of abdomen pelvis showed a 3.4 cm right prostate nodule and mass,?there was extensive right pelvic sidewall and retroperitoneal adenopathy.?Multifocal sclerotic metastatic osseous disease.? There was a partially visualized masslike density in the left lower lobe measuring 2.5 cm.? There is a indeterminate 1.4 cm left renal lesion.? * 04/20/2021:?Patient had prostate biopsy. requested that results be scanned into chart.? * 04/22/2021 patient was started on Bicalutamide (Casodex) 50 mg daily.? Current symptoms include pain in knees shoulders which has been going on for some time.? Urinary symptoms include nocturia,?frequency, no hematuria. * 04/29/2021: will start Leuprolide (Eligard) injection. * 06/02/2021 PSA is decreased to 8.4 * 07/28/2021:?Patient had a repeat CT scan of chest which showed increased density of innumerable sclerotic foci in the skeleton.? There was a stable masslike superior segment area in left lower lobe stable subcentimeter mediastinal lymph nodes solid mass in left kidney measuring 1.7 cm stable.? * 08/03/2021 switch to apalutamide plus Lupron ;?later decision made to wait till November to make the switch.? * 08/23/2021:?Patient had a bone scan which suggested with mild interval improvement in multiple skeletal metastasis CT scan of abdomen also showed primary prostate cancer has improved in size.? This would be consistent with response to treatment.? * November 2021 patient started on apalutamide?240 mg daily?later dose was reduced to 120 mg daily due to anemia.? * 03/28/2022 CT chest abdomen pelvis:?Stable multifocal sclerotic metastatic lesions throughout osseous structures.?No mediastinal hilar or axillary lymphadenopathy there is a spiculated lesion inleft lower lobe measuring 2.2 cm similar to previous exam.?No significant findings in abdomen pelvis except for extensive osseous metastatic disease.?Bone scan done same day showed excellent appendicular skeletal metastatic disease similar in distribution but less intense intermittent pelvis. * 08/08/2023 patient remains on apalutamide and ADT PSA remains undetectable.? * 11/08/2023?PSA remains undetectable?patient given a treatment break.? * February 01, 2024 we extended treatment break anemia corrected with oral iron.? * May 2024?EGD and colonoscopy negative.?Patient responded to oral iron anemia corrected. * May 2024:?PSA became detectable:?ADT restarted,?apalutamide will still be on hold. * August 12, 2024 PSA became undetectable again?we stopped ADT.? * -01/13 PSA undetectable we will continue with treatment break. * 04/08/2025 PSA became detectable will continue with treatment break Interval History { } Review of Systems Remaining 14 point comprehensive review of systems within normal limits. NCCN Distress Thermometer and Problem List were collected and documented in the patient chart.? Remarkable symptoms and concerns were discussed with the patient.? Any additional follow-up is indicated in the plan. Past Medical and Surgical History Past medical history significant for COPD,?CVA,?GERD Current Medications Medication List Name Date Hydrocodone-Acetaminophen Oral 5 mg-325 mg 03/19/2024 Trazodone Oral 12/14/2023 Vitron-C (Iron-Vitamin C) 05/20/2024 Aleve (Naproxen Sodium Oral) 04/28/2021 Tylenol PM Extra Strength (D iphenhydramine-Acetaminophen Oral 25 mg-500 mg) 04/28/2021 Famotidine Oral 08/20/2024 Cyclobenzaprine Oral 07/25/2022 Tamsulosin Oral 11/08/2023 Miralax (Polyethylene Glycol Oral) 04/28 Trelegy Ellipta (Fluticasone -Umeclidin-Vilanter Inhaler 100 mcg-62.5 mcg-25 mcg/actuation) 08/12/2024 Apalutamide Oral 08/02/2023 Hydrocodone-Acetaminophen Oral 10 mg-325 mg 07/25/2022 Aspirin Oral 04/28/2021 Allergies Penicillins and Wellbutrin Family History Social History Patient has previous history of smoking for a few years. Patient quit smoking over 35 years ago. Patient has been working for her own [employer] since he was 16 years old. 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 He continues to work full-time. Patient lives alone. His daughter, Lucy, lives about 2 miles away from him. Patient has a son, who lives in [facility] Vital Signs Blood pressure: Not recorded on visit, Pulse: Not recorded on visit, Temperature: Not recorded on visit, Respirations: Not recorded on visit, O2 sat: Not recorded on visit, Pain Scale: Not recorded on visit, Height: Not recorded on visit, Weight: Not recorded on visit, BSA: Not recorded on visit, BMI: Not recorded on visit Covid-19 vaccine (Moderna) (11/08/2023), Elsewhere; Covid-19 vaccine (Pfizer) (07/25/2022); Covid-19 vaccine (Pfizer) (04/22/2021), Elsewhere; Covid-19 vaccine (Pfizer) (04/22/2021), Elsewhere; Covid-19 vaccine (Pfizer) (02/01/2024), Patient declined/rejected; Covid-19 vaccine (Pfizer) (09/30/2021), Elsewhere; Flu vaccine - Adult (04/22/2021), Elsewhere; Flu vaccine - Adult (11/08/2023), Elsewhere; Flu vaccine - Adult (2021), Elsewhere; Flu vaccine - Adult (02/01/2024), Patient declined/rejected Performance Status ECOG or Karnofsky ECO Symptoms, but ambulatory. Restricted in physically strenuous activity, but ambulatory and able to carry out work of a light or sedentary nature (e.g., light housework, office work). (Date: 08/03/2021) Karnofsky: Not recorded Physical Exam Pleasant 84-year-old gentleman appears comfortable no acute distress ECOG performance score 2 Genetics/Molecular/Biomarkers * Primary malignant neoplasm of prostate (disorder) ( Stage Date: Unknown, Stage IVB ) Lab Results CBC Lab Results 03/27/2025 02/27/2025 11/17/2024 08/05/2024 05/16/20 24 01/29/2024 CBC WBC x 10^3/uL 4.6 6.0 5.6 5.4 4.8 RBC x 10^6/uL 4.19 (L) 4.17 (L) 3.43 (L) 3.94 (L) 4.25 NRBC % /100 wbc 0.0 0.0 0.0 0.0 0.0 HGB g/dL 13.0 12.3 (L) 10.9 (L) 12.6 12.6 HCT % 39.8 38.9 (L) 32.7 (L) 38.5 (L) 39.6 MCV fL 95.0 93.3 95.3 97.7 93.2 MCH pg 31.0 29.5 31.8 32.0 29.6 MCHC g/dL 32.7 31.6 33.3 32.7 31.8 RDW % 13.30 14.60 13.40 13.10 15.90 (H) PLT x 10^3/uL 178 174 192 222 155 MPV fL 10.1 11.5 10.3 10.3 10.5 [place] % 61.1 55.8 58.6 56.8 54.7 LY % 25.4 29.0 22.7 32.5 33.1 MO % 11.3 10.3 9.4 7.5 8.5 EO % 1.5 4.2 8.6 (H) 2.4 3.1 IG % 0.0 0.2 0.2 0.2 0.2 [place] # (ANC) x 10^3/uL 2.8 3.4 3.3 3.1 2.7 BA % 0.7 0.5 0.5 0.6 0.4 MO # x 10^3/uL 0.5 0.6 0.5 0.4 0.4 EO # x 10^3/uL 0.1 0.3 0.5 0.1 0.2 BA # x 10^3/uL 0.0 0.0 0.0 0.0 0.0 IG # x 10^3/uL 0.00 0.01 0.01 0.01 0.01 LY # x 10^3/uL 1.2 1.7 1.3 1.7 1.6 Chemistries Lab Results 03/27/2025 02/27/2025 11/17/2024 08/05/2024 05/16/20 24 01/29/2024 Chemistries Glucose mg/dL 81 117 (H) 119 (H) 71 (L) 104 (H) BUN mg/dL 21.0 (H) 30.0 (H) 27.0 (H) 23.0 (H) 23.0 (H) Creatinine mg/dL 1.00 1.00 1.00 1.00 1.00 Sodium mmol/L 139 138 140 141 141 Potassium mmol/L 4.3 4.2 3.8 4.2 4.1 Chloride mmol/L 101 104 108 (H) 104 110 (H) CO2 mmol/L 30 28 23 25 28 Calcium mg/dL 9.4 9.6 9.5 9.3 9.8 Albumin g/dL 4.2 4.2 3.8 4.2 3.8 Total protein g/dL 6.6 6.7 6.6 6.7 6.5 Bilirubin, total mg/dL 0.3 0.5 0.4 0.3 0.7 Alkaline phosphatase U/L 111 118 127 (H) 104 105 AST/SGOT U/L 40 39 32 39 36 ALT/SGPT U/L 20 20 18 19 23 GFR estimate mL/min/1.73m2 73.1 73.3 73.4 73.5 73.6 Tumor Markers Lab Results 03/27/2025 02/27/2025 11/17/2024 08/05/2024 05/16/20 24 01/29/2024 Tumor Markers PSA ng/mL 0.33 <0.06 <0.06 Repeated 0.08 <0.06 ? Lab Results 03/27/2025 02/27/2025 11/17/2024 08/05/2024 05/16/20 24 01/29/2024 Anemia Labs Ferritin ng/mL 27.20 20.90 21.90 Surveys/Consents/Other Discussions ROSY Bender CC: FAX Jamar Moss MD (Referring) Tia Lynne PA-C Electronically signed by Abdulkadir GALLEGOS 04/08/2025 15:04 CDT * Med Onc Follow-up Note Patient Name: ISABEL MCCALLUM Date Of : 1940 Today's Provider:?Abdulkadir GALLEGOS Date of Service:?11/20/2024 Attending Physician:?Abdulkadir Sandoval (Medical Oncology) Referring Provider: Jamar Moss MD (Urology) HEMATOLOGY/ MEDICAL ONCOLOGY FOLLOW UP VISIT Reason for Visit * Prostate cancer.? 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 * Stable 1.7 cm solid mass left kidney.? * Anemia:?Iron deficiency Assessment * Metastatic prostate cancer * Current treatment with apalutamide and ADT since November 2021. * Patient reported that he is tolerating treatment well he has mild side effects occasional hot flashsome fatigue.?Also he had some cytopenias and anemia requiring dose reduction.?Since reducingdose of apalutamide to?120 mg daily his tolerated treatment better.? * Patient returns for planned follow-up.?In the past he had treatment with apalutamide and ADT?patient is on a treatment break since October 2023 due to fatigue and anemia.?Patient had 1 injection of Lupron in?May 2024 as his PSA became?barely detectable.?Patient reported t hat he is doing well and he recently had surgery for his left knee replacement since then his knee pain has significantly improved no other health concerns today.? 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 * We will continue to monitor bone disease with periodic imaging studies.?Since he has castrate sensitive disease does not need bisphosphonates.? 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 * Remained stable no significant shortness of breath.? * Insomnia. * Patient continues to drink significant amount of coffee despite multiple intervention remains to have insomnia.? * Stable left kidney mass * Being followed by urology.? * Anemia of chronic disease.? * Patient has gradual worsening of anemia over the last?few months?today hemoglobin was 9.7.? * In October?2022 patient was started on oral iron?which she is currently taking,?he was also referred for gastroenterology and?he has a colonoscopy coming up in next month.?Patientdenies any blood in his stools denies any abdominal pain.?B12 folic acid?immunofixation was normal.? Plan * Clinically patient is improving performance status is improving PSA remains undetectable knee pain has significantly improved. * Will continue monitoring off treatment we will plan a follow-up in 3 to 4 months with repeat labs.? * Apalutamide is on hold as well. * I advised him to reduce iron to once or twice a week?for maintenance. * Will continue to monitor PSA?every 3 months.? * Patient will continue urology follow-up for solid mass in left kidney.? Advanced Care Planning Not discussed at this visit. Pain Scale on Today's Visit 0 Pain Plan on Today's Visit No pain plan indicated for today's visit Smoking Status Smoking Tobacco : Former smoker; Smokeless Tobacco : Never used smokeless tobacco; Vaping : Never vaped Depression Screening Tool Status Was screened; Outcome positive: No; Screening Date: 05/20/2024; Screening Tool: PRIME MD-PHQ2; Total depression score: 2 History of Present Illness * Patient pleasant 80-year-old?gentleman who is accompanied by his daughter. * 04/11/2021:?Patient was referred to Dr. Jamar Moss,?due to 6-month history of urinary frequency urgency and nocturia.? Patient been taking oxybutynin 5 mg daily without any benefit.? * 04/11/2021:?Patient PSA came back at 327. * 04/19/2021:?Whole-body bone scan showed diffuse skeletal metastasis greatest activity in thoracic and lumbar spine as well as left scapula.? CT scan of abdomen pelvis showed a 3.4 cm right prostate nodule and mass,?there was extensive right pelvic sidewall and retroperitoneal adenopathy.?Multifocal sclerotic metastatic osseous disease.? There was a partially visualized masslike density in the left lower lobe measuring 2.5 cm.? There is a indeterminate 1.4 cm left renal lesion.? * 04/20/2021:?Patient had prostate biopsy. requested that results be scanned into chart.? * 04/22/2021 patient was started on Bicalutamide (Casodex) 50 mg daily.? Current symptoms include pain in knees shoulders which has been going on for some time.? Urinary symptoms include nocturia,?frequency, no hematuria. * 04/29/2021: will start Leuprolide (Eligard) injection. * 06/02/2021 PSA is decreased to 8.4 * 07/28/2021:?Patient had a repeat CT scan of chest which showed increased density of innumerable sclerotic foci in the skeleton.? There was a stable masslike superior segment area in left lower lobe stable subcentimeter mediastinal lymph nodes solid mass in left kidney measuring 1.7 cm stable.? * 08/03/2021 switch to apalutamide plus Lupron ;?later decision made to wait till November to make the switch.? * 08/23/2021:?Patient had a bone scan which suggested with mild interval improvement in multiple skeletal metastasis CT scan of abdomen also showed primary prostate cancer has improved in size.? This would be consistent with response to treatment.? * November 2021 patient started on apalutamide?240 mg daily?later dose was reduced to 120 mg daily due to anemia.? * 03/28/2022 CT chest abdomen pelvis:?Stable multifocal sclerotic metastatic lesions throughout osseous structures.?No mediastinal hilar or axillary lymphadenopathy there is a spiculated lesion inleft lower lobe measuring 2.2 cm similar to previous exam.?No significant findings in abdomen pelvis except for extensive osseous metastatic disease.?Bone scan done same day showed excellent appendicular skeletal metastatic disease similar in distribution but less intense intermittent pelvis. * 08/08/2023 patient remains on apalutamide and ADT PSA remains undetectable.? * 11/08/2023?PSA remains undetectable?patient given a treatment break.? * February 01, 2024 we extended treatment break anemia corrected with oral iron.? * May 2024?EGD and colonoscopy negative.?Patient responded to oral iron anemia corrected. * May 2024:?PSA became detectable:?ADT restarted,?apalutamide will still be on hold. * August 12, 2024 PSA became undetectable again?we stopped ADT.? * -01/13 PSA undetectable we will continue with treatment break Interval History { } Review of Systems Remaining 14 point comprehensive review of systems within normal limits. NCCN Distress Thermometer and Problem List were collected and documented in the patient chart.? Remarkable symptoms and concerns were discussed with the patient.? Any additional follow-up is indicated in the plan. Past Medical and Surgical History Past medical history significant for COPD,?CVA,?GERD Current Medications Medication List Name Date Famotidine Oral 08/20/2024 Vitron-C (Iron-Vitamin C) 05/20/2024 Cyclobenzaprine Oral 07/25/2022 Aleve (Naproxen Sodium Oral) 04/28/2021 Hydrocodone-Acetaminophen Oral 10 mg-325 mg 07/25/2022 Tylenol PM Extra Strength (D iphenhydramine-Acetaminophen Oral 25 mg-500 mg) 04/28/2021 Apalutamide Oral 08/02/2023 Trazodone Oral 12/14/2023 Tamsulosin Oral 11/08/2023 Hydrocodone-Acetaminophen Oral 5 mg-325 mg 03/19/2024 Aspirin Oral 04/28/2021 Miralax (Polyethylene Glycol Oral) 04/28 Trelegy Ellipta (Fluticasone -Umeclidin-Vilanter Inhaler 100 mcg-62.5 mcg-25 mcg/actuation) 08/12/2024 Allergies Penicillins and Wellbutrin Family History Social History Patient has previous history of smoking for a few years. Patient quit smoking over 35 years ago. Patient has been working for her own [employer] since he was 16 years old. 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 Patient lives alone. His daughter, Lucy, lives about 2 miles away from him. Patient has a son, who lives in [facility] Vital Signs Blood pressure: 120/82, Pulse: 63, Temperature: 96.6 F, Respirations: 16, O2 sat: 96%, Pain Scale: 0, Height: 66 in, Weight: 15.8 lb, BSA: 0.68, BMI: 2.55 kg/m2 Covid-19 vaccine (Moderna) (11/08/2023), Elsewhere; Covid-19 vaccine (Pfizer) (09/30/2021), Elsewhere; Covid-19 vaccine (Pfizer) (02/01/2024), Patient declined/rejected; Covid-19 vaccine (Pfizer) (04/22/2021), Elsewhere; Covid-19 vaccine (Pfizer) (07/25/2022); Covid-19 vaccine (Pfizer) (04/22/2021), Elsewhere; Flu vaccine - Adult (02/01/2024), Patient declined/rejected; Flu vaccine - Adult (11/08/2023), Elsewhere; Flu vaccine - Adult (2021), Elsewhere; Flu vaccine - Adult (04/22/2021), Elsewhere Performance Status ECOG or Karnofsky ECO Symptoms, but ambulatory. Restricted in physically strenuous activity, but ambulatory and able to carry out work of a light or sedentary nature (e.g., light housework, office work). (Date: 08/03/2021) Karnofsky: Not recorded Physical Exam Pleasant 84-year-old gentleman appears comfortable no acute distress ECOG performance score 1 Genetics/Molecular/Biomarkers * Primary malignant neoplasm of prostate (disorder) ( Stage Date: Unknown, Stage IVB ) Lab Results CBC Lab Results 11/17/2024 08/05/2024 05/16/2024 01/29/2024 11/08/20 23 11/02/2023 CBC WBC x 10^3/uL 6.0 5.6 5.4 4.8 4.5 4.8 RBC x 10^6/uL 4.17 (L) 3.43 (L) 3.94 (L) 4.25 3.57 (L) 3.50 (L) NRBC % /100 wbc 0.0 0.0 0.0 0.0 0.0 0.0 HGB g/dL 12.3 (L) 10.9 (L) 12.6 12.6 9.7 (L) 9.7 (L) HCT % 38.9 (L) 32.7 (L) 38.5 (L) 39.6 31.0 (L) 30.8 (L) MCV fL 93.3 95.3 97.7 93.2 86.8 88.0 MCH pg 29.5 31.8 32.0 29.6 27.2 27.7 MCHC g/dL 31.6 33.3 32.7 31.8 31.3 31.5 RDW % 14.60 13.40 13.10 15.90 (H) 14.60 14.50 PLT x 10^3/uL 174 192 222 155 225 244 MPV fL 11.5 10.3 10.3 10.5 10.6 10.3 [place] % 55.8 58.6 56.8 54.7 44.8 44.9 LY % 29.0 22.7 32.5 33.1 37.8 37.5 MO % 10.3 9.4 7.5 8.5 13.0 12.8 EO % 4.2 8.6 (H) 2.4 3.1 3.8 4.0 IG % 0.2 0.2 0.2 0.2 0.2 0.2 [place] # (ANC) x 10^3/uL 3.4 3.3 3.1 2.7 2.0 2.1 BA % 0.5 0.5 0.6 0.4 0.4 0.6 MO # x 10^3/uL 0.6 0.5 0.4 0.4 0.6 0.6 EO # x 10^3/uL 0.3 0.5 0.1 0.2 0.2 0.2 BA # x 10^3/uL 0.0 0.0 0.0 0.0 0.0 0.0 IG # x 10^3/uL 0.01 0.01 0.01 0.01 0.01 0.01 LY # x 10^3/uL 1.7 1.3 1.7 1.6 1.7 1.8 Chemistries Lab Results 11/17/2024 08/05/2024 05/16/2024 01/29/2024 11/08/20 23 11/02/2023 Chemistries Glucose mg/dL 117 (H) 119 (H) 71 (L) 104 (H) 84 BUN mg/dL 30.0 (H) 27.0 (H) 23.0 (H) 23.0 (H) 20.0 Creatinine mg/dL 1.00 1.00 1.00 1.00 1.07 Sodium mmol/L 138 140 141 141 145 Potassium mmol/L 4.2 3.8 4.2 4.1 4.0 Chloride mmol/L 104 108 (H) 104 110 (H) 109 CO2 mmol/L 28 23 25 28 26 Calcium mg/dL 9.6 9.5 9.3 9.8 9.5 Albumin g/dL 4.2 3.8 4.2 3.8 4.0 Total protein g/dL 6.7 6.6 6.7 6.5 6.3 Bilirubin, total mg/dL 0.5 0.4 0.3 0.7 0.4 Alkaline phosphatase U/L 118 127 (H) 104 105 106 AST/SGOT U/L 39 32 39 36 25 ALT/SGPT U/L 20 18 19 23 14 GFR estimate mL/min/1.73m2 73.3 73.4 73.5 73.6 68.0 Tumor Markers Lab Results 11/17/2024 08/05/2024 05/16/2024 01/29/2024 11/08/20 23 11/02/2023 Tumor Markers PSA ng/mL <0.06 <0.06 Repeated 0.08 <0.06 PSA less t dutton 0.05 ? Lab Results 11/17/2024 08/05/2024 05/16/2024 01/29/2024 11/08/20 23 11/02/2023 Anemia Labs Iron ug/dL 42 (L) TIBC ug/dL 385 Ferritin ng/mL 20.90 21.90 7.90 (L) Unbound iron capacity ug/dL 343 Iron, % saturation % 11 (L) Vitamin B12 pg/mL 879 Folate, serum ng/mL Folate greater than 20 Reticulocyte count % 2.04 (H) Reticulocyte, absolute x 10^6/mL 0.07 Immature reticulocyte fraction, % 23.00 (H) Reticulocyte cellular hemoglobin pg 29.0 Surveys/Consents/Other Discussions ROSY Bender CC: FAX Jamar Moss MD (Referring) Tia Lynne PA-C Electronically signed by Abdulkadir GALLEGOS 11/20/2024 18:29 [employer]
--- OUTSIDE RECORDS SUMMARY | 2025-08-20 15:59 | XMS_ITS ---
Author Name Interface, [id number] lity Address [address] [facility] [address] [address] [facility] Address [address] [facility] [address] [address] Allergies and Adverse Reactions Medication/Group Name Reaction Severity Date Penicillins 04/03/2025 Wellbutrin 04/03/2025 Plan Date Type Value 09/01/2025 APPOINTMENT OV [...] 15 MIN 08/07/2022 APPOINTMENT CHART CHECK 5 AK N 07/25/2022 APPOINTMENT INJECTION 15 MIN 07/25/2022 [...] 20 MIN 11/04/2021 APPOINTMENT CHART CHECK 5 AK N 11/01/2021 APPOINTMENT INJECTION 15 MIN 10/28/2021 [...] CHTCK - 158 CT A ND DEXA [facility] 08/18/2021 APPOINTMENT CHTCK - 44 REVIE W SCANS DONE AT [facility] 08/17/[address] - [address] AB/PELVIS - [facility] CKIN: 12:45 08/17/2021 APPOINTMENT DEXA - 44 DEXA C T AB/PELVIS - [facility] CKIN: 12:45 08/02/2021 APPOINTMENT RCINJ - [...] - 158 ELIGAR D NEW - 158 ELIGARD NEW 04/28/2021 APPOINTMENT TMSV - 158 VSEE [...] LABORDER CMP 11/02/2023 LABORDER PSA diagnostic p desitny 11/02/2023 LABORDER CBC w/ auto diff 11/08/2023 [...] Ordered By Specimen Source Lab Address 06/02 CMP Album in g/dL 3.2 5.2 4.2 FINAL Abdulkadir Jaime Rajanot a [facility], [address] [id number] [phone] Phone: () - 06/02 CMP Alkal ine phosp hatas e U/L 46.0 116.0 270 High FINAL Abdulkadir Jaime Rajanot a On[facility], [address] [id number] 0 Phone: () - 06/02 CMP ALT/S GPT U/L 7.0 40.0 24 FINAL [place] [address] [id number] 0 Phone: () - 06/02 CMP AST/S GOT U/L 13.0 40.0 39 FINAL [place] [address] [id number] 0 Phone: () - 06/02 CMP BUN mg/dL 9.0 23.0 21 FINAL [place] [address] [id number] 0 Phone: () - 06/02 CMP Calci um mg/dL 8.7 10.4 9.5 FINAL [place] [address] [id number] 0 Phone: () - 06/02 CMP Chlor narinder mmol/L 96.0 114.0 111 FINAL [place] [address] [id number] 0 Phone: () - 06/02 CMP CO2 mmol/L 20.0 31.0 26 FINAL [place] [address] [id number] 0 Phone: () - 06/02 CMP Creat inine mg/dL 0.5 1.2 0.95 FINAL [place] [address] [id number] 0 Phone: () - 06/02 CMP GFR estim ate ml/min /1.73m ^2 73.9 GFR is calculate d using the CKD-EPI equation. FINAL [place] [address] [id number] 0 Phone: () - 06/02 CMP Gluco se mg/dL 73.0 126.0 77 FINAL [place] [address] [place] [id number] 0 Phone: () - 06/02 CMP Potas sium mmol/L 3.5 5.1 3.9 FINAL [facility] [address] [phone] 0 Phone: () - 06/02 CMP Sodiu m mmol/L 136.0 145.0 143 FINAL [facility] [address] [id number] 0 Phone: () - 06/02 CMP Bilir ubin, total mg/dL 0.3 1.2 0.4 FINAL [facility] [address] [id number] 0 Phone: () - 06/02 CMP Total prote in g/dL 5.7 8.2 6.9 FINAL [facility] [place] [address] [id number] 0 Phone: () - 06/02 PSA diagn ostic panel PSA ng/ml 0.0 4.0 8.40 High Test performed at [facility] on a [employer] 2000 Immunoass ay Analyzer that uses an immunoenz ymometric sandwich assay for analysis. Patient testing should not be performed using multiple methodolo gies due to analytica l variation seen between test methodolo girandee. FINAL [facility] [place] [address] [id number] 0 Phone: () - 06/02 CBC w/ auto diff WBC K/uL 3.0 8.9 5.2 FINAL [facility] - [place], [address] [place] [phone] 0 Phone: () - 06/02 CBC w/ auto diff HGB g/dL 12.5 16.6 13.6 FINAL [facility] Sandoval [facility] - [place], [address] [place] [phone] 0 Phone: () - 06/02 CBC w/ auto diff PLT K/uL 113.0 364.0 218 FINAL Abdulkadir Jaime Campbell a [facility] - [place], [address] [place] [id number] 0 Phone: () - 06/02 CBC w/ auto diff Cayetano # (ANC) K/uL 1.6 6.6 2.7 FINAL Abdulkadir Jaime Campbell a [facility] - [place], [address] [place] [id number] 0 Phone: () - 06/02 CBC w/ auto diff Cayet[place] % % 43.0 74.0 50.9 FINAL Abdulkadir Jaime Campbell a [facility] - [place], [address] [place] [id number] 0 Phone: () - 06/02 CBC w/ auto diff IG % % 0.0 0.5 0.2 FINAL [facility] - [place], [address] [place] [id number] 0 Phone: () - 06/02 CBC w/ auto diff IG # K/uL 0.0 0.03 0.01 FINAL Abd[facility]adirshell weinberg [facility] - [place], [address] [place] [id number] 0 Phone: () - 06/02 CBC w/ auto diff LY % % 14.0 41.0 31.9 FINAL Abdulkadirshell Campbell a [facility] - [place], [address] [place] [id number] 0 Phone: () - 06/02 CBC w/ auto diff MO % % 6.0 15.0 8.2 FINAL Abdulkadirshell Campbell a [facility] - [place], [address] [place] [id number] 0 Phone: () - 06/02 CBC w/ auto diff EO % % 0.0 7.0 8.2 High FINAL Abdulkadirshell Rajanot a [facility] - [place], [address] [place] [id number] 0 Phone: () - 06/02 CBC w/ auto diff BA % % 0.0 2.0 0.6 FINAL Abdulkadir Jaime Rajanot a [facility] - [place], [address] [place] [id number] 0 Phone: () - 06/02 CBC w/ auto diff LY # K/uL 0.4 3.6 1.7 FINAL Abdulkadir Jaime Rajanot a [facility] - [place], [address] [place] [phone] 0 Phone: () - 06/02 CBC w/ auto diff MO # K/uL 0.2 1.3 0.4 FINAL Abdulkadir Jaime Rajanot a [facility] - [place], [address] [place] [phone] 0 Phone: () - 06/02 CBC w/ auto diff EO # K/uL 0.0 0.6 0.4 FINAL Abdulkadir Jaime Rajanot a [facility] - [place], [address] [place] [id number] 0 Phone: () - 06/02 CBC w/ auto diff BA # K/uL 0.0 0.2 0.0 FINAL Abdulkadir Jaime Rajanot a [facility] - [place], [address] [place] [id number] 0 Phone: () - 06/02 CBC w/ auto diff NRBC % #/100W BC 0.0 0.2 0.0 FINAL Abdulkadir Jaime Rajanot a [facility] - [place], [address] [place] [id number] 0 Phone: () - 06/02 CBC w/ auto diff RBC M/uL 4.2 5.6 4.49 FINAL Abdulkadir Jaime Rajanot a [facility] - [place], [address] [place] [id number] 0 Phone: () - 06/02 CBC w/ auto diff HCT % 39.0 49.0 40.8 FINAL Abdulkadir Jaime Rajanot a [facility] - [place], [address] [place] [id number] 0 Phone: () - 06/02 CBC w/ auto diff MCV fL 80.0 104.0 90.9 FINAL Abdulkadir Jaime Rajanot a [facility] - [place], [address] [place] [id number] 0 Phone: () - 06/02 CBC w/ auto diff MCH pg 26.0 35.0 30.3 FINAL Abdulkadir Jaime Rajanot a [facility] - [place], [address] [place] [id number] 0 Phone: () - 06/02 CBC w/ auto diff MCHC g/dL 30.0 35.0 33.3 FINAL Abdulkadir Jaime Rajanot a [facility] - [place], [address] [place] [id number] 0 Phone: () - 06/02 CBC w/ auto diff MPV fL 9.5 13.4 10.5 FINAL Abdulkadir Jaime Rajanot a [facility] - [place], [address] [place] [id number] 0 Phone: () - 06/02 CBC w/ auto diff RDW % 11.3 15.6 13.90 FINAL Abdulkadir Jaime Rajanot a [facility] - [place], [address] [place] [phone] 0 Phone: () - 07/28 [facility] other lab See patient access registrar d 08/02 CBC w/ auto diff WBC K/uL 3.0 8.9 5.9 FINAL Abdulkadir Jaime Rajanot a [facility] - [place], [address] [place] [id number] 0 Phone: () - 08/02 CBC w/ auto diff HGB g/dL 12.5 16.6 13.1 FINAL Abdulkadir Jaime Rajanot a [facility] - [place], [address] [place] [id number] 0 Phone: () - 08/02 CBC w/ auto diff PLT K/uL 113.0 364.0 237 FINAL Abdulkadir Jaime Rajanot a [facility] - [place], [address] [place] [id number] 0 Phone: () - 08/02 CBC w/ auto diff Cayet[place] # (ANC) K/uL 1.6 6.6 2.9 FINAL Abdulkadir Jaime Rajanot a [facility] - [place], [address] [place] [id number] 0 Phone: () - 08/02 CBC w/ auto diff Cayet[place] % % 43.0 74.0 49.2 FINAL Abdulkadir Jaime Rajanot a [facility] - [place], [address] [place] [id number] 0 Phone: () - 08/02 CBC w/ auto diff IG % % 0.0 0.5 0.2 FINAL Abdulkadir Jaime Rajanot a [facility] - [place], [address] [place] [id number] 0 Phone: () - 08/02 CBC w/ auto diff IG # K/uL 0.0 0.03 0.01 FINAL Abdulkadirshell Rajanot a [facility] - [place], [address] [place] [id number] 0 Phone: () - 08/02 CBC w/ auto diff LY % % 14.0 41.0 33.2 FINAL Abdulkadir Jaime Rajanot a [facility] - [place], [address] [place] [id number] 0 Phone: () - 08/02 CBC w/ auto diff MO % % 6.0 15.0 9.0 FINAL Abdulkadir Jaime Rajanot a [facility] - [place], [address] [place] [id number] 0 Phone: () - 08/02 CBC w/ auto diff EO % % 0.0 7.0 7.5 High FINAL Abdulkadir Jaime Rajanot a [facility] - [place], [address] [place] [id number] 0 Phone: () - 08/02 CBC w/ auto diff BA % % 0.0 2.0 0.9 FINAL Abdulkadir Jaime Rajanot a [facility] - [place], [address] [place] [id number] 0 Phone: () - 08/02 CBC w/ auto diff LY # K/uL 0.4 3.6 2.0 FINAL Abdulkadir Jaime Rajanot a [facility] - [place], [address] [place] [id number] 0 Phone: () - 08/02 CBC w/ auto diff MO # K/uL 0.2 1.3 0.5 FINAL Abdulkadir Jaime Rajanot a [facility] - [place], [address] [place] [id number] 0 Phone: () - 08/02 CBC w/ auto diff EO # K/uL 0.0 0.6 0.4 FINAL Abdulkadir Jaime Rajanot a [facility] - [place], [address] [place] [id number] 0 Phone: () - 08/02 CBC w/ auto diff BA # K/uL 0.0 0.2 0.1 FINAL Abdulkadir Jaime Rajanot a [facility] - [place], [address] [place] [id number] 0 Phone: () - 08/02 CBC w/ auto diff NRBC % #/100W BC 0.0 0.2 0.0 FINAL Abdulkadir Jaime Rajanot a [facility] - [place], [address] [place] [id number] 0 Phone: () - 08/02 CBC w/ auto diff RBC M/uL 4.2 5.6 4.28 FINAL Abdulkadir Jaime Rajanot a [facility] - [place], [address] [place] [id number] 0 Phone: () - 08/02 CBC w/ auto diff HCT % 39.0 49.0 39.1 FINAL Abdulkadir Jaime Rajanot a [facility] - [place], [address] [place] [id number] 0 Phone: () - 08/02 CBC w/ auto diff MCV fL 80.0 104.0 91.4 FINAL Abdulkadir Jaime Rajanot a [facility] - [place], [address] [place] [id number] 0 Phone: () - 08/02 CBC w/ auto diff MCH pg 26.0 35.0 30.6 FINAL Abdulkdair Jaime Rajanot a [facility] - [place], [address] [place] [id number] 0 Phone: () - 08/02 CBC w/ auto diff MCHC g/dL 30.0 35.0 33.5 FINAL Abdulkadirshell Campbell a [facility] - [place], [address] [place] [id number] 0 Phone: () - 08/02 CBC w/ auto diff MPV fL 9.5 13.4 10.1 FINAL Abdulkadirshell Campbell a [facility] - [place], [address] [place] [id number] 0 Phone: () - 08/02 CBC w/ auto diff RDW % 11.3 15.6 13.70 FINAL Abdulkadir Jaime Campbell a [facility] - [place], [address] [place] [id number] 0 Phone: () - 08/02 CMP Album in g/dL 3.2 5.2 4.2 FINAL Abdulkadir Jaime Satindereddie a On[facility] - [place], [address] [place] [id number] 0 Phone: () - 08/02 CMP Alkal ine phosp hatas e U/L 46.0 116.0 131 High FINAL [facility], [address] [facility] [address] [phone] 0 Phone: () - 08/02 CMP ALT/S GPT U/L 7.0 40.0 22 FINAL [facility] [address] [facility] [address] [id number] 0 Phone: () - 08/02 CMP AST/S GOT U/L 13.0 40.0 31 FINAL [place] [address] [address] [facility] [address] [id number] 0 Phone: () - 08/02 CMP BUN mg/dL 9.0 23.0 20 FINAL [place] [address] [id number] 0 Phone: () - 08/02 CMP Calci um mg/dL 8.7 10.4 9.9 FINAL [place] [address] [id number] 0 Phone: () - 08/02 CMP Chlor narinder mmol/L 96.0 114.0 108 FINAL [place] [address] [id number] 0 Phone: () - 08/02 CMP CO2 [...] of the 96 hour stability window. FINAL [facility] [address] [id number] 0 Phone: () - 08/02 CMP Creat inine mg/dL 0.5 1.2 0.98 FINAL [place] [address] [address] [facility] [address] [id number] 0 Phone: () - 08/02 CMP GFR estim ate ml/min /1.73m ^2 71.1 GFR is calculate d using the CKD-EPI equation. FINAL [facility] [address] [facility] [address] [place] [address] [id number] 0 Phone: () - 08/02 CMP Gluco se mg/dL 73.0 126.0 83 FINAL [place] [address] [address] [facility] [address] [id number] 0 Phone: () - 08/02 CMP Potas sium mmol/L 3.5 5.1 4.2 FINAL [facility] [address] [facility] [address] [id number] 0 Phone: () - 08/02 CMP Sodiu m mmol/L 136.0 145.0 142 FINAL [place] [address] [id number] 0 Phone: () - 08/02 CMP Bilir ubin, total mg/dL 0.3 1.2 0.5 FINAL [facility] [address] [facility] [address] [id number] 0 Phone: () - 08/02 CMP Total prote in g/dL 5.7 8.2 7.0 FINAL [place] [address] [address] [facility] [address] [id number] 0 Phone: () - 08/02 PSA diagn ostic panel PSA ng/ml 0.0 4.0 1.10 Test performed at [facility] on a [employer] Immun[employer] ay Analyzer that uses an immunoenz ymometric sandwich assay for analysis. Patient testing should not be performed using multiple malik plaza due to analytica l variation seen between test malik plaza. FINAL [facility] [address] [facility] [address] [place] [address] [phone] 0 Phone: () - 09/02 CBC w/ auto diff WBC K/uL 3.0 8.9 5.0 FINAL [facility], [address] [place] [id number] 0 Phone: () - 09/02 CBC w/ auto diff HGB g/dL 12.5 16.6 13.1 FINAL Abdulkadir Jiame Rajanot a [facility] - [place], [address] [place] [id number] 0 Phone: () - 09/02 CBC w/ auto diff PLT K/uL 113.0 364.0 209 FINAL Abdulkadir Jaime Rajanot a [facility] - [place], [address] [place] [id number] 0 Phone: () - 09/02 CBC w/ auto diff [place]et[place] # (ANC) K/uL 1.6 6.6 2.6 FINAL Abdulkaidr Jaime Rajanot a [facility] - [place], [address] [place] [id number] 0 Phone: () - 09/02 CBC w/ auto diff Cayet[place] % % 43.0 74.0 53.1 FINAL Abdulkadir Jaime Rajanot a [facility] - [place], [address] [place] [id number] 0 Phone: () - 09/02 CBC w/ auto diff IG % % 0.0 0.5 0.2 FINAL Abdulkadir Jaime Rajanot a [facility] - [place], [address] [place] [id number] 0 Phone: () - 09/02 CBC w/ auto diff IG # K/uL 0.0 0.03 0.01 FINAL Abdulkadir Jaime Rajanot a [facility] - [place], [address] [place] [id number] 0 Phone: () - 09/02 CBC w/ auto diff LY % % 14.0 41.0 33.6 FINAL Abdulkadir Jaime Rajanot a [facility] - [place], [address] [place] [id number] 0 Phone: () - 09/02 CBC w/ auto diff MO % % 6.0 15.0 8.7 FINAL Abdulkadir Jaime Rajanot a [facility] - [place], [address] [place] [id number] 0 Phone: () - 09/02 CBC w/ auto diff EO % % 0.0 7.0 3.8 FINAL Abdulkadir Jaime Rajanot a [facility] - [place], [address] [place] [id number] 0 Phone: () - 09/02 CBC w/ auto diff BA % % 0.0 2.0 0.6 FINAL Abdulkadir Jaime Rajanot a [facility] - [place], [address] [place] [id number] 0 Phone: () - 09/02 CBC w/ auto diff LY # K/uL 0.4 3.6 1.7 FINAL Abdulkadir Jaime Rajanot a [facility] - [place], [address] [place] [id number] 0 Phone: () - 09/02 CBC w/ auto diff MO # K/uL 0.2 1.3 0.4 FINAL Abdulkadir Jaime Rajanot a [facility] - [place], [address] [place] [id number] 0 Phone: () - 09/02 CBC w/ auto diff EO # K/uL 0.0 0.6 0.2 FINAL Abdulkadir Jaime Rajanot a [facility] - [place], [address] [place] [id number] 0 Phone: () - 09/02 CBC w/ auto diff BA # K/uL 0.0 0.2 0.0 FINAL Abdulkadir Jaime Rajanot a [facility] - [place], [address] [place] [id number] 0 Phone: () - 09/02 CBC w/ auto diff NRBC % #/100W BC 0.0 0.2 0.0 FINAL Abdulkadir Jaime Rajanot a [facility] - [place], [address] [place] [id number] 0 Phone: () - 09/02 CBC w/ auto diff RBC M/uL 4.2 5.6 4.26 FINAL Abdulkadirshell Rajanot a [facility] - [place], [address] [place] [id number] 0 Phone: () - 09/02 CBC w/ auto diff HCT % 39.0 49.0 39.6 FINAL Abdulkadirshell Rajanot a [facility] - [place], [address] [facility] [address] [place] [id number] 0 Phone: () - 09/02 CBC w/ auto diff MCV fL 80.0 104.0 93.0 FINAL Abdulkadir Sandoval Satinderot a [facility] - [place], [address] [facility] [address] [place] [id number] 0 Phone: () - 09/02 CBC w/ auto diff MCH pg 26.0 35.0 30.8 FINAL Abdulkadir Jaime Satinderot a [facility] - [place], [address] [facility] [address] [place] [id number] 0 Phone: () - 09/02 CBC w/ auto diff MCHC g/dL 30.0 35.0 33.1 FINAL Abdulkadir Jaime Satinderot a [facility] - [place], [address] [facility] [address] [place] [id number] 0 Phone: () - 09/02 CBC w/ auto diff MPV fL 9.5 13.4 10.2 FINAL Abdulkadir Sandoval [facility] - [place], [address] [facility] [address] [place] [id number] 0 Phone: () - 09/02 CBC w/ auto diff RDW % 11.3 15.6 13.50 FINAL Abdulkadir Sandoval Satinderot [facility] - [place], [address] [facility] [address] [place] [id number] 0 Phone: () - 09/02 CMP Album in g/dL 3.2 5.2 4.1 FINAL [place] [address] [address] [facility] [address] [id number] 0 Phone: () - 09/02 CMP Alkal ine phosp hatas e U/L 46.0 116.0 113 FINAL [place] [address] [id number] 0 Phone: () - 09/02 CMP ALT/S GPT U/L 7.0 40.0 23 FINAL [place] [address] [id number] 0 Phone: () - 09/02 CMP AST/S GOT U/L 13.0 40.0 35 FINAL [place] [address] [id number] 0 Phone: () - 09/02 CMP BUN mg/dL 9.0 23.0 20 FINAL [place] [address] [id number] 0 Phone: () - 09/02 CMP Calci um mg/dL 8.7 10.4 10.1 FINAL [place] [address] [id number] 0 Phone: () - 09/02 CMP Chlor narinder mmol/L 96.0 114.0 107 FINAL [place] [address] [id number] 0 Phone: () - 09/02 CMP CO2 [...] of the 96 hour stability window. FINAL [place] [address] [phone] 0 Phone: () - 09/02 CMP Creat inine mg/dL 0.5 1.2 1.00 FINAL [place] [address] [id number] 0 Phone: () - 09/02 CMP GFR estim ate ml/min /1.73m ^2 69.4 GFR is calculate d using the CKD-EPI equation. FINAL [place] [address] [id number] 0 Phone: () - 09/02 CMP Gluco se mg/dL 73.0 126.0 98 FINAL [place] [address] [id number] 0 Phone: () - 09/02 CMP Potas sium mmol/L 3.5 5.1 3.8 FINAL [place] [address] [id number] 0 Phone: () - 09/02 CMP Sodiu m mmol/L 136.0 145.0 144 FINAL [place] [address] [id number] 0 Phone: () - 09/02 CMP Bilir ubin, total mg/dL 0.3 1.2 0.4 FINAL [place] [address] [id number] 0 Phone: () - 09/02 CMP Total prote in g/dL 5.7 8.2 6.9 FINAL [place] [address] [id number] 0 Phone: () - 09/02 PSA diagn ostic panel PSA ng/ml 0.0 4.0 0.70 Test performed at [facility] on a [employer] Immunoass ay Analyzer that uses an immunoenz ymometric sandwich assay for analysis. Patient testing should not be performed using multiple methodunruly plaza due to analytica l variation seen between test methodunruly plaza. FINAL [place] [address] [place] [id number] 0 Phone: () - 09/30 CBC w/ auto diff WBC K/uL 3.0 8.9 6.4 FINAL Abdulkadir Jaime Rajanot a [facility] - [place], [address] [place] [id number] 0 Phone: () - 09/30 CBC w/ auto diff HGB g/dL 12.5 16.6 12.7 FINAL Abdulkadir Jaime Rajanot a [facility] - [place], [address] [place] [id number] 0 Phone: () - 09/30 CBC w/ auto diff PLT K/uL 113.0 364.0 233 FINAL Abdulkadir Jaime Rajanot a [facility] - [place], [address] [place] [id number] 0 Phone: () - 09/30 CBC w/ auto diff [place]et[place] # (ANC) K/uL 1.6 6.6 3.4 FINAL Abdulkadir Jaime Campbell [facility] - [place], [address] [place] [id number] 0 Phone: () - 09/30 CBC w/ auto diff Cayet[place] % % 43.0 74.0 53.1 FINAL Abdulkadir Jaime Campbell [facility] - [place], [address] [place] [id number] 0 Phone: () - 09/30 CBC w/ auto diff IG % % 0.0 0.5 0.3 FINAL Abdulkadir Jaime Rajanot a [facility] - [place], [address] [place] [id number] 0 Phone: () - 09/30 CBC w/ auto diff IG # K/uL 0.0 0.03 0.02 FINAL Abdulkadir Jaime Rajanot a [facility] - [place], [address] [place] [id number] 0 Phone: () - 09/30 CBC w/ auto diff LY % % 14.0 41.0 33.3 FINAL Abdulkadir Jaime Rajanot a [facility] - [place], [address] [place] [id number] 0 Phone: () - 09/30 CBC w/ auto diff MO % % 6.0 15.0 8.9 FINAL Abdulkadir Jaime Rajanot a [facility] - [place], [address] [place] [id number] 0 Phone: () - 09/30 CBC w/ auto diff EO % % 0.0 7.0 3.8 FINAL Abdulkadir Jaime Rajanot a [facility] - [place], [address] [place] [id number] 0 Phone: () - 09/30 CBC w/ auto diff BA % % 0.0 2.0 0.6 FINAL Abdulkadir Jaime Rajanot a [facility] - [place], [address] [place] [id number] 0 Phone: () - 09/30 CBC w/ auto diff LY # K/uL 0.4 3.6 2.1 FINAL Abdulkadir Jaime Rajanot a [facility] - [place], [address] [place] [id number] 0 Phone: () - 09/30 CBC w/ auto diff MO # K/uL 0.2 1.3 0.6 FINAL Abdulkadir Jaime Rajanot a [facility] - [place], [address] [place] [id number] 0 Phone: () - 09/30 CBC w/ auto diff EO # K/uL 0.0 0.6 0.2 FINAL [facility] [place], [address] [place] [phone] 0 Phone: () - 09/30 CBC w/ auto diff BA # K/uL 0.0 0.2 0.0 FINAL [facility] [place], [address] [place] [phone] 0 Phone: () - 09/30 CBC w/ auto diff NRBC % #/100W BC 0.0 0.2 0.0 FINAL [facility] [place], [address] [place] [phone] 0 Phone: () - 09/30 CBC w/ auto diff RBC M/uL 4.2 5.6 4.10 Low FINAL [facility] [place], [address] [place] [phone] 0 Phone: () - 09/30 CBC w/ auto diff HCT % 39.0 49.0 38.4 Low FINAL [facility] [place] le, [address] [place] [id number] 0 Phone: () - 09/30 CBC w/ auto diff MCV fL 80.0 104.0 93.7 FINAL Abdulkadir Jaime Campbell [facility] - [place], [address] [facility] [address] [place] [id number] 0 Phone: () - 09/30 CBC w/ auto diff MCH pg 26.0 35.0 31.0 FINAL Abdulkadir Jaime [facility] - [place], [address] [address] [place] [id number] 0 Phone: () - 09/30 CBC w/ auto diff MCHC g/dL 30.0 35.0 33.1 FINAL Abdulkadir Jaime [facility] - [place], [address] [place] [id number] 0 Phone: () - 09/30 CBC w/ auto diff MPV fL 9.5 13.4 9.9 FINAL Abdulkadir Jaime Rajanot a On[facility] - [place], [address] [place] [id number] 0 Phone: () - 09/30 CBC w/ auto diff RDW % 11.3 15.6 13.60 FINAL [facility]ir [facility], [address] [facility] [phone] 0 Phone: () - 09/30 PSA diagn ostic panel PSA ng/ml 0.0 4.0 0.60 Test performed at [facility] on a [employer] 2000 Immunoass ay Analyzer that uses an immunoenz ymometric sandwich assay for analysis. Patient testing should not be performed using multiple methodunruly plaza due to analytica l variation seen between test methodunruly plaza. FINAL [facility] [place] [address] [facility] [address] [place] [address] [id number] [phone] Phone: () - 09/30 CMP Album in g/dL 3.2 5.2 4.2 FINAL [facility] [place] [address] [facility] [address] [place] [address] [id number] 0 Phone: () - 09/30 CMP Alkal ine phosp hatas e U/L 46.0 116.0 108 FINAL [facility] [place] [address] [facility] [address] [place] [address] [id number] 0 Phone: () - 09/30 CMP ALT/S GPT U/L 7.0 40.0 22 FINAL [place] [address] [facility] [address] [place] [address] [id number] 0 Phone: () - 09/30 CMP AST/S GOT U/L 13.0 40.0 26 FINAL [place] [address] [facility] [address] [place] [address] [id number] 0 Phone: () - 09/30 CMP BUN mg/dL 9.0 23.0 28 High FINAL [place] [address] [id number] 0 Phone: () - 09/30 CMP Calci um mg/dL 8.7 10.4 10.3 FINAL [facility] [place] [address] [facility] [address] [place] [address] [id number] 0 Phone: () - 09/30 CMP Chlor narinder mmol/L 96.0 114.0 109 FINAL [facility], [address] [facility] [address] [id number] 0 Phone: () - 09/30 CMP CO2 [...] of the 96 hour stability window. FINAL [facility] [place] [address] [id number] 0 Phone: () - 09/30 CMP Creat inine mg/dL 0.5 1.2 0.96 FINAL [place] [address] [id number] 0 Phone: () - 09/30 CMP GFR estim ate ml/min /1.73m ^2 72.8 GFR is calculate d using the CKD-EPI equation. FINAL [place] [address] [id number] 0 Phone: () - 09/30 CMP Gluco se mg/dL 73.0 126.0 73 FINAL [place] [address] [id number] 0 Phone: () - 09/30 CMP Potas sium mmol/L 3.5 5.1 4.2 FINAL [place] [address] [facility] [address] [id number] 0 Phone: () - 09/30 CMP Sodiu m mmol/L 136.0 145.0 146 High FINAL [facility] [address] [facility] [address] [id number] 0 Phone: () - 09/30 CMP Bilir ubin, total mg/dL 0.3 1.2 0.4 FINAL [place] [address] [facility] [address] [facility] [id number] 0 Phone: () - 09/30 CMP Total prote in g/dL 5.7 8.2 6.8 FINAL Abdulkadir weinberg [facility], [address] [facility] [address] [place] [id number] 0 Phone: () - 12/06 PSA diagn ostic panel PSA ng/ml 0.0 4.0 0.50 Test performed at [facility] on a [employer] 2000 Immunoass ay Analyzer that uses an immunoenz ymometric sandwich assay for analysis. Patient testing should not be performed using multiple methodolo gies due to analytica l variation seen between test methodolo gies. FINAL Abdulkadir weinberg [facility], [address] [facility] [address] [place] [id number] 0 Phone: () - 12/06 CBC w/ auto diff WBC K/uL 3.0 8.9 5.2 FINAL Abdulkadir weinberg [facility] - [place] , [address] [place] [address] [place] [address] [id number] 0 Phone: () - 12/06 CBC w/ auto diff HGB g/dL 12.5 16.6 10.4 Low FINAL Abdulkadir weinberg [facility] - [place] , [address] [place] [address] [place] [address] [place] [id number] 0 Phone: () - 12/06 CBC w/ auto diff PLT K/uL 113.0 364.0 248 FINAL Abdulkadir weinberg [facility] - [place] , [address] [place] [address] [place] [address] [place] [id number] 0 Phone: () - 12/06 CBC w/ auto diff Cayetano # (ANC) K/uL 1.6 6.6 2.6 FINAL Abdulkadir weinberg [facility] - [place] , [address] [place] [address] [place] [address] [place] [id number] 0 Phone: () - 12/06 CBC w/ auto diff Cayetano % % 43.0 74.0 50.8 FINAL Abdulkadir weinberg [facility] - [place], [address] [place] [phone] 0 Phone: () - 12/06 CBC w/ auto diff IG % % 0.0 0.5 0.2 FINAL Abdulkadirshell Campbell a [facility] - [place], [address] [place] [id number] 0 Phone: () - 12/06 CBC w/ auto diff IG # K/uL 0.0 0.03 0.01 FINAL Abdulkadirshell Rajanot a Oncology - [place], [address] [place] [id number] 0 Phone: () - 12/06 CBC w/ auto diff LY % % 14.0 41.0 35.7 FINAL Abdulkadirshell Rajanot a On[facility] - [place], [address] [place] [id number] 0 Phone: () - 12/06 CBC w/ auto diff MO % % 6.0 15.0 10.6 FINAL Abdulkadirshell Campbell [facility] - [place], [address] [place] [id number] 0 Phone: () - 12/06 CBC w/ auto diff EO % % 0.0 7.0 2.1 FINAL Abdulkadir Campbell [facility] - [place], [address] [place] [id number] 0 Phone: () - 12/06 CBC w/ auto diff BA % % 0.0 2.0 0.6 FINAL Abdulkadirshell Campbell a [facility] - [place], [address] [place] [id number] 0 Phone: () - 12/06 CBC w/ auto diff LY # K/uL 0.4 3.6 1.9 FINAL Abdulkadirshell Campbell a [facility] - [place], [address] [place] [id number] 0 Phone: () - 12/06 CBC w/ auto diff MO # K/uL 0.2 1.3 0.6 FINAL Abdulkadir Jaime Rajanot a [facility] - [place], [address] [place] [id number] 0 Phone: () - 12/06 CBC w/ auto diff EO # K/uL 0.0 0.6 0.1 FINAL Abdulkadir Jaime Rajanot a [facility] - [place], [address] [place] [id number] 0 Phone: () - 12/06 CBC w/ auto diff BA # K/uL 0.0 0.2 0.0 FINAL Abdulkadir Jaime Rajanot a [facility] - [place], [address] [place] [id number] 0 Phone: () - 12/06 CBC w/ auto diff NRBC % #/100W BC 0.0 0.2 0.0 FINAL Abdulkadir Jaime Rajanot a [facility] - [place], [address] [place] [id number] 0 Phone: () - 12/06 CBC w/ auto diff RBC M/uL 4.2 5.6 3.49 Low FINAL Abdulkadir Jaime Rajanot a [facility] - [place], [address] [place] [id number] 0 Phone: () - 12/06 CBC w/ auto diff HCT % 39.0 49.0 31.6 Low FINAL Abdulkadir Jaime Rajanot a [facility] - [place], [address] [place] [id number] 0 Phone: () - 12/06 CBC w/ auto diff MCV fL 80.0 104.0 90.5 FINAL Abdulkadir Jaime Rajanot a [facility] - [place], [address] [place] [id number] 0 Phone: () - 12/06 CBC w/ auto diff MCH pg 26.0 35.0 29.8 FINAL Abdulkadir Jaime Rajanot a [facility] - [place], [address] [place] [id number] 0 Phone: () - 12/06 CBC w/ auto diff MCHC g/dL 30.0 35.0 32.9 FINAL Abdulkadir Jaime weinberg [facility] - [place], [address] [facility] [address] [place] [id number] 0 Phone: () - 12/06 CBC w/ auto diff MPV fL 9.5 13.4 9.9 FINAL Abdulkadir Jaime weinberg On[facility] - [place], [address] [facility] [address] [place] [id number] 0 Phone: () - 12/06 CBC w/ auto diff RDW % 11.3 15.6 13.00 FINAL Abdulkadir Jaime weinberg On[facility] - [place], [address] [facility] [address] [facility] [place] [id number] 0 Phone: () - 12/06 CMP Album in g/dL 3.2 5.2 4.1 FINAL Abdulkadir Jaime weinberg [facility], [address] [facility] [address] [place] [address] [id number] 0 Phone: () - 12/06 CMP Alkal ine phosp hatas e U/L 46.0 116.0 103 FINAL Abdulkadir Jaime weinberg [facility], [address] [facility] [address] [place] [address] [id number] 0 Phone: () - 12/06 CMP ALT/S GPT U/L 7.0 40.0 27 FINAL Abdulkadir Jaime Rajan a [facility], [facility] [address] [facility] [address] [place] [address] [id number] 0 Phone: () - 12/06 CMP AST/S GOT U/L 13.0 40.0 56 High FINAL Abdulkadir Jaime Rajan sultana [facility], [facility] [address] [facility] [address] [place] [address] [id number] 0 Phone: () - 12/06 CMP BUN mg/dL 9.0 23.0 26 High FINAL Abdulkadirshell Rajan sultana [facility], [facility] [address] [facility] [address] [place] [address] [id number] 0 Phone: () - 12/06 CMP Calci um mg/dL 8.7 10.4 10.1 FINAL [facility] [place] [address] [id number] 0 Phone: () - 12/06 CMP Chlor narinder mmol/L 96.0 114.0 108 FINAL [place] [address] [id number] 0 Phone: () - 12/06 CMP CO2 [...] of the 96 hour stability window. FINAL [place] [address] [id number] 0 Phone: () - 12/06 CMP Creat inine mg/dL 0.5 1.2 1.21 High FINAL [place] [address] [id number] 0 Phone: () - 12/06 CMP GFR estim ate ml/min /1.73m ^2 55.0 Low GFR is calculate d using the CKD-EPI equation. FINAL [place] [address] [id number] 0 Phone: () - 12/06 CMP Gluco se mg/dL 73.0 126.0 111 FINAL [place] [address] [id number] 0 Phone: () - 12/06 CMP Potas sium mmol/L 3.5 5.1 4.2 FINAL [place] [address] [id number] 0 Phone: () - 12/06 CMP Sodiu m mmol/L 136.0 145.0 144 FINAL [facility] a [facility]cology - [place], [address] [place] [id number] 0 Phone: () - 12/06 CMP Bilir ubin, total mg/dL 0.3 1.2 0.3 FINAL Abdulkadir Jaime weinberg [facility] - [place], [address] [place] [id number] 0 Phone: () - 12/06 CMP Total prote in g/dL 5.7 8.2 6.5 FINAL Abdulkadir Jaime Campbell [facility] - [place], [address] [place] [id number] 0 Phone: () - 12/06 Color (ua) Yellow FINAL Abdulkadir Jaime [facility] - [place], [address] [place] [id number] 0 Phone: () - 12/06 Appea rosie (ua) Clear FINAL Abdulkadir Jaime [facility] - [place], [address] [place] [id number] 0 Phone: () - 12/06 Gluco se (ua), qual Negativ e FINAL Abdulkadir Jaime [facility] - [place], [address] [place] [id number] 0 Phone: () - 12/06 Bilir ubin (ua) Negativ e FINAL Abdulkadir Jaime Campbell [facility] - [place], [address] [place] [id number] 0 Phone: () - 12/06 Urina lysis , aceto ne or keton e vladimir s measu remen t Negativ e FINAL Abdulkadir Jaime Rajanot a [facility] - [place], [address] [place] [id number] 0 Phone: () - 12/06 Speci fic gravi ty (ua) 1.005 1.02 1.030 Abnor mal FINAL Abdulkadir Jaime Rajanot a [facility] - [place], [address] [place] [id number] 0 Phone: () - 12/06 Blood (ua) Negativ e FINAL Abdulkadir Jaime Rajanot a [facility] - [place], [address] [place] [id number] 0 Phone: () - 12/06 pH (ua) 5.0 8.0 6.0 FINAL Abdulkadir Jaime Rajanot a [facility] - [place], [address] [place] [id number] 0 Phone: () - 12/06 Prote in (ua) Negativ e FINAL Abdulkadir Jaime Rajanot a [facility] - [place], [address] [place] [id number] 0 Phone: () - 12/06 Urobi linog en (ua) 0.2 1.0 0.2 FINAL Abdulkadir Jaime Rajanot a [facility] - [place], [address] [place] [id number] 0 Phone: () - 12/06 Nitri te (ua) Positiv e Abnor mal FINAL Abdulkadir Jaime [facility] - [place], [address] [place] [id number] 0 Phone: () - 12/06 Leuko cyte theresa ase (ua), qual Negativ e FINAL Abdulkadir Jaime Rajanot a [facility] - [place], [address] [place] [id number] 0 Phone: () - 12/06 UA comme nt 1 Dipstic k Positiv e-Micro Ordered FINAL Abdulkadir Jaime Rajanot a [facility] - [place], [address] [place] [id number] 0 Phone: () - 12/06 UA Micro scopi c WBC (ua) 0.0 2.0 0-2 FINAL Abdulkadir Jaime Campbell [facility] - [place], [address] [place] [id number] 0 Phone: () - 12/06 UA Micro scopi c RBC (ua) 0.0 2.0 3-5 Abnor mal FINAL Abdulkadir Jaime weinberg [facility] - [place], [address] [facility] [address] [place] [id number] 0 Phone: () - 12/06 UA Micro scopi c Epith elial cells (ua) Rare 0-2 FINAL Abdulkadir Jaime weinberg [facility] - [place], [address] [place], [place] [address]et [facility] d [address] [place] [id number] 0 Phone: () - 12/06 UA Micro scopi c Bacte anai (ua) Moderat e Abnor mal FINAL Abdulkadir Jaime weinberg [facility] - [place], [address] [place] [address] d [address] [facility] [place] [id number] 0 Phone: () - 12/06 UA Micro scopi c Mucus (ua) Negativ e FINAL [facility] Jaime Campbell a [facility] - [place], [address] [place] [address] d [address] [facility] [place] [id number] 0 Phone: () - 12/06 UA Micro scopi c Casts , urine None FINAL Abdulkadir Jaime weinberg [facility] - [place], [address] [place] [address] d [address] [facility] [place] [id number] 0 Phone: () - 12/06 UA Micro scopi c Cryst als (ua) None FINAL [facility] Jaime weinberg On[facility] - [place], [address] [place] [address] [facility] [address] [place] [id number] 0 Phone: () - 12/06 UA Micro scopi c UA comme nt 1 Micro Positiv e-Cultu re Ordered FINAL [facility] Jaime weinberg On[facility] - [place], [address] [place], [place] [address]et [facility] d [address] [place] [id number] 0 Phone: () - 12/07 Urine cultu [...] kae RlevoFLOX acin >=8 RCiproflo xacin >=4 RPiperaci llin+Tazo bactam <=4 SAmpicill in+Sulbac austin 16 ICefepime RTobramyc in <=1 SMeropene m <=0.25 SNitrofur antoin <=16 STest Performed by:[facility] [address] - [facility] [place], [place] [address]Chou e [phone] FINAL Abdulkadir Jaime 01/06 CBC w/ auto diff WBC K/uL 3.0 8.9 5.5 FINAL Abdulkadir Jaime Campbell [facility] - [place] , [address] [place] [address] [address] [facility] [id number] 0 Phone: () - 01/06 CBC w/ auto diff HGB g/dL 12.5 16.6 11.0 Low FINAL Abdulkadir Jaime Rajanot a [facility] - [place] , [address] [place] [address] [address] [facility] [id number] 0 Phone: () - 01/06 CBC w/ auto diff PLT K/uL 113.0 364.0 245 FINAL Abdulkadir Jaime Campbell [facility] - [place] , [address] [place] [address] [address] [facility] [id number] 0 Phone: () - 01/06 CBC w/ auto diff Cayetano # (ANC) K/uL 1.6 6.6 2.9 FINAL Abdulkadir Jaime Campbell [facility] - [place], [address] [place] [id number] 0 Phone: () - 01/06 CBC w/ auto diff Cayetano % % 43.0 74.0 52.3 FINAL Abdulkadirshell Campbell a [facility] - [place], [address] [place] [id number] 0 Phone: () - 01/06 CBC w/ auto diff IG % % 0.0 0.5 0.2 FINAL Abdulkaidrshell Rajanot a Oncology - [place], [address] [place] [id number] 0 Phone: () - 01/06 CBC w/ auto diff IG # K/uL 0.0 0.03 0.01 FINAL Abdulkadirshell Rajanot a [facility] - [place], [address] [place] [id number] 0 Phone: () - 01/06 CBC w/ auto diff LY % % 14.0 41.0 31.1 FINAL Abdulkadirshell Campbell a [facility] - [place], [address] [place] [id number] 0 Phone: () - 01/06 CBC w/ auto diff MO % % 6.0 15.0 9.1 FINAL Abdulkadirshell Campbell a [facility] - [place], [address] [place] [id number] 0 Phone: () - 01/06 CBC w/ auto diff EO % % 0.0 7.0 6.8 FINAL Abdulkadirshell Campbell a [facility] - [place], [address] [place] [id number] 0 Phone: () - 01/06 CBC w/ auto diff BA % % 0.0 2.0 0.5 FINAL Abdulkadir Rajanot a [facility] - [place], [address] [place] [id number] 0 Phone: () - 01/06 CBC w/ auto diff LY # K/uL 0.4 3.6 1.7 FINAL Abdulkadir Jaime Rajanot a [facility] - [place], [address] [place] [id number] 0 Phone: () - 01/06 CBC w/ auto diff MO # K/uL 0.2 1.3 0.5 FINAL Abdulkadir Jaime Rajanot a [facility] - [place], [address] [place] [id number] 0 Phone: () - 01/06 CBC w/ auto diff EO # K/uL 0.0 0.6 0.4 FINAL Abdulkadir Jaime Rajanot a [facility] - [place], [address] [place] [id number] 0 Phone: () - 01/06 CBC w/ auto diff BA # K/uL 0.0 0.2 0.0 FINAL Abdulkadir Jaime Rajanot a [facility] - [place], [address] [place] [id number] 0 Phone: () - 01/06 CBC w/ auto diff NRBC % #/100W BC 0.0 0.2 0.0 FINAL Abdulkadir Jaime Rajanot a [facility] - [place], [address] [place] [id number] 0 Phone: () - 01/06 CBC w/ auto diff RBC M/uL 4.2 5.6 3.75 Low FINAL Abdulkadir Jaime Rajanot a [facility] - [place], [address] [place] [id number] 0 Phone: () - 01/06 CBC w/ auto diff HCT % 39.0 49.0 34.1 Low FINAL Abdulkadir Jaime Rajanot a [facility] - [place], [address] [place] [id number] 0 Phone: () - 01/06 CBC w/ auto diff MCV fL 80.0 104.0 90.9 FINAL Abdulkadir Jaime Rajanot a [facility] - [place], [address] [place] [id number] 0 Phone: () - 01/06 CBC w/ auto diff MCH pg 26.0 35.0 29.3 FINAL Abdulkadirshell weinberg Oncology - [place], [address] [facility] [address] [place] [id number] 0 Phone: () - 01/06 CBC w/ auto diff MCHC g/dL 30.0 35.0 32.3 FINAL Abdulkadir Jaime weinberg [facility] - [place], [address] [facility] [address] [place] [id number] 0 Phone: () - 01/06 CBC w/ auto diff MPV fL 9.5 13.4 10.0 FINAL Abdulkadirshell weinberg [facility] - [place], [address] [facility] [address] [place] [id number] 0 Phone: () - 01/06 CBC w/ auto diff RDW % 11.3 15.6 13.60 FINAL Abdulkadirshell weinberg [facility] - [place], [address] [facility] [address] [place] [id number] 0 Phone: () - 01/06 CMP Album in g/dL 3.2 5.2 4.0 FINAL Abdulkadirshell Rajan a [facility], [address] [facility] [address] [place] [address] [id number] 0 Phone: () - 01/06 CMP Alkal ine phosp hatas e U/L 46.0 116.0 105 FINAL Abdulkadir Jaime Rajan a [facility], [address] [facility] [address] [place] [address] [id number] 0 Phone: () - 01/06 CMP ALT/S GPT U/L 7.0 40.0 29 FINAL Abdulkadir Jaime Rajan a [facility], [address] [facility] [address] [facility] [id number] 0 Phone: () - 01/06 CMP AST/S GOT U/L 13.0 40.0 45 High FINAL Abdulkadir Jaime Rajan a [facility], [address] [facility] [address] [place] [address] [id number] 0 Phone: () - 01/06 CMP BUN mg/dL 9.0 23.0 25 High FINAL [facility] N [facility] 100 [facility] [id number] 0 Phone: () - 01/06 CMP Calci um mg/dL 8.7 10.4 10.1 FINAL [facility] [address] [facility] 100 [facility] [id number] 0 Phone: () - 01/06 CMP Chlor narinder mmol/L 96.0 114.0 108 FINAL [place] [address] [id number] 0 Phone: () - 01/06 CMP CO2 [...] of the 96 hour stability window. FINAL [facility] Jaime [place] [address] [id number] 0 Phone: () - 01/06 CMP Creat inine mg/dL 0.5 1.2 1.14 FINAL [place] [address] [id number] 0 Phone: () - 01/06 CMP GFR estim ate ml/min /1.73m ^2 63.7 GFR is calculate d using the CKD-EPI equation. FINAL [facility], [facility] N [address] [id number] 0 Phone: () - 01/06 CMP Gluco se mg/dL 73.0 126.0 119 FINAL [facility] Sandoval [facility], [address] [id number] 0 Phone: () - 01/06 CMP Potas sium mmol/L 3.5 5.1 3.9 FINAL [facility] [address] [id number] 0 Phone: () - 01/06 CMP Sodiu m mmol/L 136.0 145.0 144 FINAL [facility] [address] [id number] 0 Phone: () - 01/06 CMP Bilir ubin, total mg/dL 0.3 1.2 0.2 Low FINAL [place] [address] [id number] 0 Phone: () - 01/06 CMP Total prote in g/dL 5.7 8.2 6.5 FINAL [place] [address] [id number] 0 Phone: () - 01/06 PSA diagn ostic panel PSA ng/ml 0.0 4.0 0.30 Test performed at [facility] on a [employer] ay Analyzer that uses an immunoenz ymometric sandwich assay for analysis. Patient testing should not be performed using multiple methodunruly plaza due to analytica l variation seen between test malik plaza. FINAL [place] [address] [id number] 0 Phone: () - 02/07 CMP Album in g/dL 3.2 5.2 3.9 FINAL [place] [address] [id number] 0 Phone: () - 02/07 CMP Alkal ine phosp hatas e U/L 46.0 116.0 102 FINAL [place] [address] [id number] 0 Phone: () - 02/07 CMP ALT/S GPT U/L 7.0 40.0 30 FINAL [place] [address] [id number] 0 Phone: () - 02/07 CMP AST/S GOT U/L 13.0 40.0 48 High FINAL [facility], [address] [facility] 100 [facility] [id number] 0 Phone: () - 02/07 CMP BUN mg/dL 9.0 23.0 25 High FINAL [facility], [address] [facility] [address] [facility] [address] [facility] [id number] 0 Phone: () - 02/07 CMP Calci um mg/dL 8.7 10.4 9.5 FINAL [facility], [address] [facility] 100 [facility] [id number] 0 Phone: () - 02/07 CMP Chlor narinder mmol/L 96.0 114.0 106 FINAL [facility] [address] [facility] [address] [id number] 0 Phone: () - 02/07 CMP CO2 [...] of the 96 hour stability window. FINAL [facility], [address] [id number] 0 Phone: () - 02/07 CMP Creat inine mg/dL 0.5 1.2 1.13 FINAL [facility], [address] [place] [address] [phone] Phone: () - 02/07 CMP GFR estim ate ml/min /1.73m ^2 64.4 GFR is calculate d using the CKD-EPI equation. FINAL [facility], [address] [facility] [id number] 0 Phone: () - 02/07 CMP Gluco se mg/dL 73.0 126.0 92 FINAL [facility], [address] [facility] 100 [facility] [id number] 0 Phone: () - 02/07 CMP Potas sium mmol/L 3.5 5.1 3.7 [facility] [address] [facility] 100 [facility] [id number] 0 Phone: () - 02/07 CMP Sodiu m mmol/L 136.0 145.0 144 FINAL [facility] [address] [facility] 100 [facility] [phone] 0 Phone: () - 02/07 CMP Bilir ubin, total mg/dL 0.3 1.2 0.2 Low FINAL [facility] [address] [id number] 0 Phone: () - 02/07 CMP Total prote in g/dL 5.7 8.2 6.3 FINAL [facility] [address] [phone] 0 Phone: () - 02/07 PSA diagn ostic panel PSA ng/ml 0.0 4.0 0.30 Test performed at [facility] on a [employer] Immunoass ay Analyzer that uses an immunoenz ymometric sandwich assay for analysis. Patient testing should not be performed using multiple methodolo gies due to analytica l variation seen between test methodolo gies. FINAL [facility], [address] [facility] 100 [facility] [phone] 0 Phone: () - 02/07 CBC w/ auto diff WBC K/uL 3.0 8.9 3.6 FINAL [facility] [place], [address] [place] [phone] 0 Phone: () - 02/07 CBC w/ auto diff HGB g/dL 12.5 16.6 11.9 Low FINAL [facility] [place], [address] [place] [id number] 0 Phone: () - 02/07 CBC w/ auto diff PLT K/uL 113.0 364.0 184 FINAL Abdulkadir Jaime Campbell a [facility] - [place], [address] [place] [id number] 0 Phone: () - 02/07 CBC w/ auto diff Cayetano # (ANC) K/uL 1.6 6.6 1.8 FINAL Abdulkadir Jaime Campbell a [facility] - [place], [address] [place] [id number] 0 Phone: () - 02/07 CBC w/ auto diff Cayetano % % 43.0 74.0 48.3 FINAL Abdulkadir Jaime Campbell a [facility] - [place], [address] [place] [id number] 0 Phone: () - 02/07 CBC w/ auto diff IG % % 0.0 0.5 0.3 FINAL Abdulkadir Jaime Campbell a [facility] - [place], [address] [place] [id number] 0 Phone: () - 02/07 CBC w/ auto diff IG # K/uL 0.0 0.03 0.01 FINAL Abdulkadirshell Campbell a [facility] - [place], [address] [place] [id number] 0 Phone: () - 02/07 CBC w/ auto diff LY % % 14.0 41.0 32.6 FINAL Abdulkadir Jaime Campbell a [facility] - [place], [address] [place] [id number] 0 Phone: () - 02/07 CBC w/ auto diff MO % % 6.0 15.0 15.5 High FINAL Abdulkadirshell Rajanot a [facility] - [place], [address] [place] [id number] 0 Phone: () - 02/07 CBC w/ auto diff EO % % 0.0 7.0 3.0 FINAL [facility]ir [facility] [place] [facility] [place], [address] [place] [id number] 0 Phone: () - 02/07 CBC w/ auto diff BA % % 0.0 2.0 0.3 FINAL Abdulkadir Jaime Rajanot a [facility] - [place], [address] [place] [id number] 0 Phone: () - 02/07 CBC w/ auto diff LY # K/uL 0.4 3.6 1.2 FINAL Abdulkadir Jaime Rajanot a [facility] - [place], [address] [place] [id number] 0 Phone: () - 02/07 CBC w/ auto diff MO # K/uL 0.2 1.3 0.6 FINAL Abdulkadir Jaime Rajanot a [facility] - [place], [address] [place] [id number] 0 Phone: () - 02/07 CBC w/ auto diff EO # K/uL 0.0 0.6 0.1 FINAL Abdulkadir Jaime Rajanot a [facility] - [place], [address] [place] [id number] 0 Phone: () - 02/07 CBC w/ auto diff BA # K/uL 0.0 0.2 0.0 FINAL Abdulkadir Jaime Rajanot a [facility] - [place], [address] [place] [id number] 0 Phone: () - 02/07 CBC w/ auto diff NRBC % #/100W BC 0.0 0.2 0.0 FINAL Abdulkadir Jaime Rajanot a [facility] - [place], [address] [place] [id number] 0 Phone: () - 02/07 CBC w/ auto diff RBC M/uL 4.2 5.6 4.07 Low FINAL Abdulkadir Jaime Rajanot a [facility] - [place], [address] [place] [id number] 0 Phone: () - 02/07 CBC w/ auto diff HCT % 39.0 49.0 36.0 Low FINAL Abdulkadir Jaime weinberg [facility] - [place], [address] [facility] [address] [place] [id number] 0 Phone: () - 02/07 CBC w/ auto diff MCV fL 80.0 104.0 88.5 FINAL Abdulkadir Jaime weinberg [facility] - [place], [address] [place] [address] [address] [place] [id number] 0 Phone: () - 02/07 CBC w/ auto diff MCH pg 26.0 35.0 29.2 FINAL Abdulkadir Jaime weinberg [facility] - [place], [address] [facility] [address] [place] [id number] 0 Phone: () - 02/07 CBC w/ auto diff MCHC g/dL 30.0 35.0 33.1 FINAL Abdulkadir Jaime weinberg [facility] - [place], [address] [facility] [address] [place] [id number] 0 Phone: () - 02/07 CBC w/ auto diff MPV fL 9.5 13.4 10.9 FINAL Abdulkadir Jaime weinberg [facility] - [place], [address] [place] [address] [address] [place] [id number] 0 Phone: () - 02/07 CBC w/ auto diff RDW % 11.3 15.6 14.50 FINAL Abdulkadir Jaime weinberg [facility] - [place], [address] [place] [address] [address] [place] [id number] 0 Phone: () - 03/31 CMP Album in g/dL 3.2 5.2 4.0 FINAL Abdulkadir Jaime Rajan a [facility], [facility] [address] [facility] [address] [place] [address] [id number] 0 Phone: () - 03/31 CMP Alkal ine phosp hatas e U/L 46.0 116.0 87 FINAL Abdulkadir Jaime Rajan a [facility], [address] [facility] [address] [place] [address] [place] [id number] 0 Phone: () - 03/31 CMP ALT/S GPT U/L 7.0 40.0 17 FINAL [facility], [address] [facility] [id number] 0 Phone: () - 03/31 CMP AST/S GOT U/L 13.0 40.0 33 FINAL [facility] [address] [facility] 100 [facility] [id number] 0 Phone: () - 03/31 CMP BUN mg/dL 9.0 23.0 24 High FINAL [place] [address] [id number] 0 Phone: () - 03/31 CMP Calci um mg/dL 8.7 10.4 10.6 High FINAL [place] [address] [id number] 0 Phone: () - 03/31 CMP Chlor narinder mmol/L 96.0 114.0 106 FINAL [facility], [address] [id number] 0 Phone: () - 03/31 CMP CO2 [...] of the 96 hour stability window. FINAL [facility], [address] [place] [address] [id number] 0 Phone: () - 03/31 CMP Creat inine mg/dL 0.5 1.2 1.33 High FINAL [facility], [address] [place] [address] [id number] 0 Phone: () - 03/31 CMP GFR estim ate ml/min /1.73m ^2 52.9 Low GFR is calculate d using the CKD-EPI equation. FINAL Abdulkadir Jaime Rajan sultana [facility], [address] [facility] [id number] 0 Phone: () - 03/31 CMP Gluco se mg/dL 73.0 126.0 89 FINAL [facility] Jaime weinberg [facility], [address] [facility] [id number] 0 Phone: () - 03/31 CMP Potas sium mmol/L 3.5 5.1 4.3 FINAL [facility] Jaime weinberg [facility], [address] [place] [address] [id number] 0 Phone: () - 03/31 CMP Sodiu m mmol/L 136.0 145.0 144 FINAL [facility], [address] [facility] [id number] 0 Phone: () - 03/31 CMP Bilir ubin, total mg/dL 0.3 1.2 0.3 FINAL [facility] Jaime Rajan sultana [facility], [address] [place] [address] [id number] 0 Phone: () - 03/31 CMP Total prote in g/dL 5.7 8.2 6.3 FINAL [facility] Jaime Rajan sultana [facility], [address] [place] [address] [id number] 0 Phone: () - 03/31 CBC w/ auto diff WBC K/uL 3.0 8.9 6.1 FINAL [facility] Jaime weinberg [facility] - [place] , [address] [place] [address] [place] [address] [place] [id number] 0 Phone: () - 03/31 CBC w/ auto diff HGB g/dL 12.5 16.6 10.3 Low FINAL [facility] Jaime weinberg [facility]cology [place] , [address] [place] [address] [address] [facility] [place] [id number] 0 Phone: () - 03/31 CBC w/ auto diff PLT K/uL 113.0 364.0 257 FINAL [facility] Jaime Rajan sultana [facility] [place], [address] [place] [id number] 0 Phone: () - 03/31 CBC w/ auto diff Cayetano # (ANC) K/uL 1.6 6.6 3.7 FINAL Abdulkadir Jaime Rajanot a [facility] - [place], [address] [place] [id number] 0 Phone: () - 03/31 CBC w/ auto diff Cayetano % % 43.0 74.0 59.8 FINAL Abdulkadir Jaime Rajanot a [facility] - [place], [address] [place] [id number] 0 Phone: () - 03/31 CBC w/ auto diff IG % % 0.0 0.5 0.3 FINAL Abdulkadir Jaime Rajanot a [facility] - [place], [address] [place] [id number] 0 Phone: () - 03/31 CBC w/ auto diff IG # K/uL 0.0 0.03 0.02 FINAL Abdulkadir Jaime Rajanot a [facility] - [place], [address] [place] [id number] 0 Phone: () - 03/31 CBC w/ auto diff LY % % 14.0 41.0 27.9 FINAL Abdulkadir Jaime Rajanot a [facility] - [place], [address] [place] [id number] 0 Phone: () - 03/31 CBC w/ auto diff MO % % 6.0 15.0 10.0 FINAL Abdulkadir Jaime Rajanot a [facility] - [place], [address] [place] [id number] 0 Phone: () - 03/31 CBC w/ auto diff EO % % 0.0 7.0 1.5 FINAL Abdulkadir Jaime Rajanot a [facility] - [place], [address] [place] [id number] 0 Phone: () - 03/31 CBC w/ auto diff BA % % 0.0 2.0 0.5 FINAL Abdulkadir Jaime Rajanot a [facility] - [place], [address] [place] [id number] 0 Phone: () - 03/31 CBC w/ auto diff LY # K/uL 0.4 3.6 1.7 FINAL Abdulkadir Jaime Rajanot a [facility] - [place], [address] [place] [id number] 0 Phone: () - 03/31 CBC w/ auto diff MO # K/uL 0.2 1.3 0.6 FINAL Abdulkadir Jaime Rajanot a [facility] - [place], [address] [place] [id number] 0 Phone: () - 03/31 CBC w/ auto diff EO # K/uL 0.0 0.6 0.1 FINAL Abdulkadir Jaime Rajanot a [facility] - [place], [address] [place] [id number] 0 Phone: () - 03/31 CBC w/ auto diff BA # K/uL 0.0 0.2 0.0 FINAL Abdulkadir Jaime Rajanot a [facility] - [place], [address] [place] [id number] 0 Phone: () - 03/31 CBC w/ auto diff NRBC % #/100W BC 0.0 0.2 0.0 FINAL Abdulkadir Jaime Rajanot a [facility] - [place], [address] [place] [id number] 0 Phone: () - 03/31 CBC w/ auto diff RBC M/uL 4.2 5.6 3.50 Low FINAL Abdulkadir Jaime Rajanot a [facility] - [place], [address] [place] [id number] 0 Phone: () - 03/31 CBC w/ auto diff HCT % 39.0 49.0 31.4 Low FINAL Abdulkadir Jaime Rajanot a [facility] - [place], [address] [place] [id number] 0 Phone: () - 03/31 CBC w/ auto diff MCV fL 80.0 104.0 89.7 FINAL Abdulkadir Jaime Rajanot a [facility] - [place], [address] [place] [id number] 0 Phone: () - 03/31 CBC w/ auto diff MCH pg 26.0 35.0 29.4 FINAL Abdulkadir Jaime Rajanot a [facility] - [place], [address] [place] [id number] 0 Phone: () - 03/31 CBC w/ auto diff MCHC g/dL 30.0 35.0 32.8 FINAL Abdulkadir Jaime Rajanot a [facility] - [place], [address] [place] [id number] 0 Phone: () - 03/31 CBC w/ auto diff MPV fL 9.5 13.4 9.9 FINAL Abdulkadir Jaime Campbell a [facility] - [place], [address] [place] [id number] 0 Phone: () - 03/31 CBC w/ auto diff RDW % 11.3 15.6 15.00 FINAL Abdulkadir Jaime Campbell a [facility] - [place], [address] [place] [id number] 0 Phone: () - 05/02 CBC w/ auto diff WBC K/uL 3.0 8.9 4.9 FINAL Abdulkadir Jaime Rajanot a [facility] - [place], [address] [place] [id number] 0 Phone: () - 05/02 CBC w/ auto diff HGB g/dL 12.5 16.6 10.7 Low FINAL Abdulkadir Jaime Rajanot a [facility] - [place], [address] [place] [id number] 0 Phone: () - 05/02 CBC w/ auto diff PLT K/uL 113.0 364.0 225 FINAL Abdulkadir Jaime Rajanot a [facility] - [place], [address] [place] [id number] 0 Phone: () - 05/02 CBC w/ auto diff Cayetano # (ANC) K/uL 1.6 6.6 2.6 FINAL Abdulkadir Jaime Rajanot a [facility] - [place], [address] [place] [id number] 0 Phone: () - 05/02 CBC w/ auto diff Cayetano % % 43.0 74.0 53.8 FINAL Abdulkadir Jaime Rajanot a [facility] - [place], [address] [place] [id number] 0 Phone: () - 05/02 CBC w/ auto diff IG % % 0.0 0.5 0.2 FINAL Abdulkadir Jaime Rajanot a [facility] - [place], [address] [place] [id number] 0 Phone: () - 05/02 CBC w/ auto diff IG # K/uL 0.0 0.03 0.01 FINAL Abdulkadir Jaime Rajanot a [facility] - [place], [address] [place] [id number] 0 Phone: () - 05/02 CBC w/ auto diff LY % % 14.0 41.0 31.7 FINAL Abdulkadir Jaime Rajanot a [facility] - [place], [address] [place] [id number] 0 Phone: () - 05/02 CBC w/ auto diff MO % % 6.0 15.0 11.5 FINAL Abdulkadir Jaime Rajanot a [facility] - [place], [address] [place] [id number] 0 Phone: () - 05/02 CBC w/ auto diff EO % % 0.0 7.0 2.0 FINAL Abdulkadir Jaime Rajanot a [facility] - [place], [address] [place] [id number] 0 Phone: () - 05/02 CBC w/ auto diff BA % % 0.0 2.0 0.8 FINAL Abdulkadir Jaime Rajanot a [facility] - [place], [address] [place] [id number] 0 Phone: () - 05/02 CBC w/ auto diff LY # K/uL 0.4 3.6 1.6 FINAL Abdulkadir Jaime Rajanot a [facility] - [place], [address] [place] [id number] 0 Phone: () - 05/02 CBC w/ auto diff MO # K/uL 0.2 1.3 0.6 FINAL Abdulkadir Jaime Rajanot a [facility] - [place], [address] [place] [id number] 0 Phone: () - 05/02 CBC w/ auto diff EO # K/uL 0.0 0.6 0.1 FINAL Abdulkadir Jaime Rajanot a [facility] - [place], [address] [place] [id number] 0 Phone: () - 05/02 CBC w/ auto diff BA # K/uL 0.0 0.2 0.0 FINAL Abdulkadir Jaime Campbell a [facility] - [place], [address] [place] [id number] 0 Phone: () - 05/02 CBC w/ auto diff NRBC % #/100W BC 0.0 0.2 0.0 FINAL Abdulkadir Jaime Rajanot a [facility] - [place], [address] [place] [id number] 0 Phone: () - 05/02 CBC w/ auto diff RBC M/uL 4.2 5.6 3.68 Low FINAL Abdulkadir Jaime Rajanot a [facility] - [place], [address] [place] [id number] 0 Phone: () - 05/02 CBC w/ auto diff HCT % 39.0 49.0 32.6 Low FINAL Abdulkadir Jaime Campbell a [facility] - [place], [address] [place] [id number] 0 Phone: () - 05/02 CBC w/ auto diff MCV fL 80.0 104.0 88.6 FINAL Abdulkadirshell Campbell a [facility] - [place], [address] [place] [id number] 0 Phone: () - 05/02 CBC w/ auto diff MCH pg 26.0 35.0 29.1 FINAL Abdulkadir Jaime Campbell a [facility] - [place], [address] [place] [id number] 0 Phone: () - 05/02 CBC w/ auto diff MCHC g/dL 30.0 35.0 32.8 FINAL Abdulkadir Jaime weinberg [facility] - [place], [address] [place] [id number] 0 Phone: () - 05/02 CBC w/ auto diff MPV fL 9.5 13.4 9.7 FINAL Abdulkadir Jaime weinberg [facility] - [place], [address] [place] [id number] 0 Phone: () - 05/02 CBC w/ auto diff RDW % 11.3 15.6 14.20 FINAL Abdulkadir Jaime weinberg [facility] - [place], [address] [place] [id number] 0 Phone: () - 05/02 PSA diagn ostic panel PSA ng/ml 0.0 4.0 0.20 Test performed at [facility] on a [employer] 2000 Immunoass ay Analyzer that uses an immunoenz ymometric sandwich assay for analysis. Patient testing should not be performed using multiple methodunruly plaza due to analytica l variation seen between test malik plaza. FINAL Abdulkadir Jaime Campbell a [facility] - [place], [address] [place] [id number] 0 Phone: () - 05/02 CMP Album in g/dL 3.2 5.2 4.1 FINAL [facility], [address] [id number] 0 Phone: () - 05/02 CMP Alkal ine phosp hatas e U/L 46.0 116.0 85 FINAL [facility] [address] [id number] 0 Phone: () - 05/02 CMP ALT/S GPT U/L 7.0 40.0 24 FINAL [place] [address] [id number] 0 Phone: () - 05/02 CMP AST/S GOT U/L 13.0 40.0 45 High FINAL [facility] [address] [id number] 0 Phone: () - 05/02 CMP BUN mg/dL 9.0 23.0 20 FINAL [place] [address] [id number] 0 Phone: () - 05/02 CMP Calci um mg/dL 8.7 10.4 10.5 High FINAL [place] [address] [id number] 0 Phone: () - 05/02 CMP Chlor narinder mmol/L 96.0 114.0 106 FINAL [place] [address] [id number] 0 Phone: () - 05/02 CMP CO2 [...] of the 96 hour stability window. FINAL [facility], [facility] [address] [id number] 0 Phone: () - 05/02 CMP Creat inine mg/dL 0.5 1.2 1.35 High FINAL [facility] N [address] [id number] 0 Phone: () - 05/02 CMP GFR estim ate ml/min /1.73m ^2 51.9 Low GFR is calculate d using the CKD-EPI equation. FINAL [facility] Jaime [place] [address] [id number] 0 Phone: () - 05/02 CMP Gluco se mg/dL 73.0 126.0 94 FINAL [facility] Jaime [place] [address] [id number] 0 Phone: () - 05/02 CMP Potas sium mmol/L 3.5 5.1 4.3 FINAL [facility] Jaime [place] [address] [id number] 0 Phone: () - 05/02 CMP Sodiu m mmol/L 136.0 145.0 144 FINAL [facility] Jaime [place] [address] [id number] 0 Phone: () - 05/02 CMP Bilir ubin, total mg/dL 0.3 1.2 0.3 FINAL [facility] [place] [address] [id number] 0 Phone: () - 05/02 CMP Total prote in g/dL 5.7 8.2 6.5 FINAL [facility] N [address] [id number] 0 Phone: () - 07/25 CBC w/ auto diff WBC K/uL 3.0 8.9 6.1 FINAL [facility] Jaime [facility], [address] [facility] [id number] 0 Phone: () - 07/25 CBC w/ auto diff HGB g/dL 12.5 16.6 11.8 Low FINAL Abdulkadir Jaime Campbell a [facility] - [place], [address] [place] [id number] 0 Phone: () - 07/25 CBC w/ auto diff PLT K/uL 113.0 364.0 263 FINAL Abdulkadir Jaime weinberg [facility] - [place], [address] [place] [id number] 0 Phone: () - 07/25 CBC w/ auto diff Plate let, immat ure, fract ion % 0.9 11.2 No result FINAL Abdulkadir Jaime Campbell [facility] - [place], [address] [place] [id number] 0 Phone: () - 07/25 CBC w/ auto diff Cayetano # (ANC) K/uL 1.6 6.6 3.3 FINAL Abdulkadir Jaime weinberg [facility] - [place], [address] [place] [id number] 0 Phone: () - 07/25 CBC w/ auto diff Cayetano % % 43.0 74.0 54.9 FINAL Abdulkadir Jaime weinberg [facility] - [place], [address] [place] [id number] 0 Phone: () - 07/25 CBC w/ auto diff IG % % 0.0 0.5 0.2 FINAL Abdulkadir Jaime Campbell a [facility] - [place], [address] [place] [id number] 0 Phone: () - 07/25 CBC w/ auto diff IG # K/uL 0.0 0.03 0.01 FINAL Abdulkadir Jaime Campbell a [facility] - [place], [address] [place] [id number] 0 Phone: () - 07/25 CBC w/ auto diff LY % % 14.0 41.0 23.3 FINAL Abdulkadir Jaime Campbell [facility] - [place], [address] [place] [id number] 0 Phone: () - 07/25 CBC w/ auto diff MO % % 6.0 15.0 11.7 FINAL Abdulkadirshell Rajanot a [facility] - [place], [address] [place] [id number] 0 Phone: () - 07/25 CBC w/ auto diff EO % % 0.0 7.0 9.4 High FINAL Abdulkadirshell Rajanot a [facility] - [place], [address] [place] [id number] 0 Phone: () - 07/25 CBC w/ auto diff BA % % 0.0 2.0 0.5 FINAL Abdulkadirshell Rajanot a [facility] - [place], [address] [place] [id number] 0 Phone: () - 07/25 CBC w/ auto diff LY # K/uL 0.4 3.6 1.4 FINAL Abdulkadirshell Campbell a [facility] - [place], [address] [place] [id number] 0 Phone: () - 07/25 CBC w/ auto diff MO # K/uL 0.2 1.3 0.7 FINAL Abdulkadir Campbell [facility] - [place], [address] [place] [id number] 0 Phone: () - 07/25 CBC w/ auto diff EO # K/uL 0.0 0.6 0.6 FINAL Abdulkadirshell Rajanot a [facility] - [place], [address] [place] [id number] 0 Phone: () - 07/25 CBC w/ auto diff BA # K/uL 0.0 0.2 0.0 FINAL Abdulkadir Rajanot a [facility] - [place], [address] [place] [id number] 0 Phone: () - 07/25 CBC w/ auto diff NRBC % #/100W BC 0.0 0.2 0.0 FINAL Abdulkadir Jaime Rajanot a [facility] - [place], [address] [place] [id number] 0 Phone: () - 07/25 CBC w/ auto diff RBC M/uL 4.2 5.6 3.89 Low FINAL Abdulkadir Jaime Rajanot a [facility] - [place], [address] [place] [id number] 0 Phone: () - 07/25 CBC w/ auto diff HCT % 39.0 49.0 36.0 Low FINAL Abdulkadir Jaime Rajanot a [facility] - [place], [address] [place] [id number] 0 Phone: () - 07/25 CBC w/ auto diff MCV fL 80.0 104.0 92.5 FINAL Abdulkadir Jaime Rajanot a [facility] - [place], [address] [place] [id number] 0 Phone: () - 07/25 CBC w/ auto diff MCH pg 26.0 35.0 30.3 FINAL Abdulkadir Jaime Rajanot a [facility] - [place], [address] [place] [id number] 0 Phone: () - 07/25 CBC w/ auto diff MCHC g/dL 30.0 35.0 32.8 FINAL Abdulkadir Jaime Rajanot a [facility] [place], [address] [place] [id number] 0 Phone: () - 07/25 CBC w/ auto diff MPV fL 9.5 13.4 9.7 FINAL Abdulkadir Jaime [facility]ot [facility] [place], [address] [place] [phone] 0 Phone: () - 07/25 CBC w/ auto diff RDW % 11.3 15.6 14.80 FINAL Abdulkadir Jaime [facility]ot [facility] [place], [address] [place] [phone] 0 Phone: () - 07/25 CBC w/ auto diff Auto CBC comme nts No result FINAL [facility] Jaime Rajan sultana [facility], [address] [place] [phone] 0 Phone: () - 07/25 PSA diagn ostic panel PSA ng/ml 0.0 4.0 0.10 Test performed at [facility] on a Maps InDeed Immunoass ay Analyzer that uses an immunoenz ymometric sandwich assay for analysis. Patient testing should not be performed using multiple methodolo gies due to analytica l variation seen between test methodolo gies. FINAL [facility] [place] [address] [place] [address] [phone] 0 Phone: () - 07/25 CMP Album in g/dL 3.2 5.2 4.0 FINAL [facility] [address] [place] [address] [id number] 0 Phone: () - 07/25 CMP Alkal ine phosp hatas e U/L 46.0 116.0 105 FINAL [facility] [address] [place] [address] [id number] 0 Phone: () - 07/25 CMP ALT/S GPT U/L 7.0 40.0 13 FINAL [facility] [address] [place] [address] [id number] 0 Phone: () - 07/25 CMP AST/S GOT U/L 13.0 40.0 26 FINAL [facility] [address] [place] [address] [id number] 0 Phone: () - 07/25 CMP BUN mg/dL 9.0 23.0 22 FINAL [facility] [address] [place] [address] [id number] 0 Phone: () - 07/25 CMP Calci um mg/dL 8.7 10.4 9.6 FINAL [facility], [address] [id number] 0 Phone: () - 07/25 CMP Chlor narinder mmol/L 96.0 114.0 106 FINAL Abdulkadirsavannah Sandoval [place] [address] [id number] 0 Phone: () - 07/25 CMP CO2 [...] 96 hour stability window. FINAL Abdulkadir Jain [address] [id number] 0 Phone: () - 07/25 CMP Creat inine mg/dL 0.5 1.2 1.09 FINAL [facility] Jaime [address] [id number] 0 Phone: () - 07/25 CMP GFR estim ate ml/min /1.73m ^2 67.0 GFR is calculate d using the CKD-EPI equation. FINAL Abdulkadir Jain [place] [address] [id number] 0 Phone: () - 07/25 CMP Gluco se mg/dL 73.0 126.0 96 FINAL [facility] Jaime [address] [id number] 0 Phone: () - 07/25 CMP Potas sium mmol/L 3.5 5.1 4.[address] [id number] 0 Phone: () - 07/25 CMP Sodiu m mmol/L 136.0 145.0 142 FINAL [facility] [place] [address] [id number] 0 Phone: () - 07/25 CMP Bilir ubin, total mg/dL 0.3 1.2 0.3 FINAL Abdulkadirshell weinberg Oncology [facility], [address] [place] [id number] 0 Phone: () - 07/25 CMP Total prote in g/dL 5.7 8.2 6.4 FINAL Abdulkadirshell weinberg Oncology [facility], [address] [facility] [id number] 0 Phone: () - 10/24 PSA diagn ostic panel PSA ng/ml 0.0 4.0 0.10 Test performed at [facility] on a Maps InDeed Immunoass ay Analyzer that uses an immunoenz ymometric sandwich assay for analysis. Patient testing should not be performed using multiple methodunruly plaza due to analytica l variation seen between test methodunruly plaza. FINAL Abdulkadirshell weinberg Oncology [facility], [address] [facility] [address] [facility] [id number] 0 Phone: () - 10/24 CBC w/ auto diff WBC K/uL 3.0 8.9 4.2 FINAL Abdulkadirshell weinberg [facility] [place], [address] [place] [id number] 0 Phone: () - 10/24 CBC w/ auto diff HGB g/dL 12.5 16.6 10.1 Low FINAL Abdulkadirshell weinberg [facility] [place], [address] [place] [phone] 0 Phone: () - 10/24 CBC w/ auto diff PLT K/uL 113.0 364.0 269 FINAL Abdulkadirshell Campbell a [facility] [place], [address] [place] [id number] 0 Phone: () - 10/24 CBC w/ auto diff Cayetano # (ANC) K/uL 1.6 6.6 2.1 FINAL Abdulkadirshell Campbell a [facility] [place], [address] [place] [id number] 0 Phone: () - 10/24 CBC w/ auto diff Cayetano % % 43.0 74.0 50.7 FINAL Abdulkadir Jaime Raj[facility]ot [facility] [place], [address] [place] [id number] 0 Phone: () - 10/24 CBC w/ auto diff IG % % 0.0 0.5 0.0 FINAL Abdulkadir Jaime [facility]ot [facility] [place], [address] [place] [id number] 0 Phone: () - 10/24 CBC w/ auto diff IG # K/uL 0.0 0.03 0.00 FINAL Abdulkadir Jaime [facility]ot [facility] [place], [address] [place] [id number] 0 Phone: () - 10/24 CBC w/ auto diff LY % % 14.0 41.0 34.9 FINAL Abdulkadir Jaime Raj[facility]ot [facility] [place], [address] [place] [id number] 0 Phone: () - 10/24 CBC w/ auto diff MO % % 6.0 15.0 11.2 FINAL Abdulkadir Jaime [facility] [place], [address] [place] [id number] 0 Phone: () - 10/24 CBC w/ auto diff EO % % 0.0 7.0 2.2 FINAL Abdulkadir Jaime [facility]ot [facility] [place], [address] [place] [id number] 0 Phone: () - 10/24 CBC w/ auto diff BA % % 0.0 2.0 1.0 FINAL Abdulkadir Jaime Rajanot [facility] [place], [address] [place] [id number] 0 Phone: () - 10/24 CBC w/ auto diff LY # K/uL 0.4 3.6 1.5 FINAL Abdulkadir Jaime Raj[facility]ot [facility] [place], [address] [place] [id number] 0 Phone: () - 10/24 CBC w/ auto diff MO # K/uL 0.2 1.3 0.5 FINAL Abdulkadir Jaime [facility]ot [facility] [place], [address] [place] [id number] 0 Phone: () - 10/24 CBC w/ auto diff EO # K/uL 0.0 0.6 0.1 FINAL Abdulkadir Jaime Raj[facility]ot [facility] [place], [address] [place] [id number] 0 Phone: () - 10/24 CBC w/ auto diff BA # K/uL 0.0 0.2 0.0 FINAL Abdulkadir Jaime [facility] [place], [address] [place] [id number] 0 Phone: () - 10/24 CBC w/ auto diff NRBC % #/100W BC 0.0 0.2 0.0 FINAL Abdulkadir Jaime [facility]ot [facility] [place], [address] [place] [id number] 0 Phone: () - 10/24 CBC w/ auto diff RBC M/uL 4.2 5.6 3.37 Low FINAL Abdulkadir Jaime [facility]ot [facility] [place], [address] [place] [id number] 0 Phone: () - 10/24 CBC w/ auto diff HCT % 39.0 49.0 31.2 Low FINAL Abdulkadir Jaime [facility]ot [facility] [place], [address] [place] [id number] 0 Phone: () - 10/24 CBC w/ auto diff MCV fL 80.0 104.0 92.6 FINAL Abdulkadir Jaime [facility] [place], [address] [place] [id number] 0 Phone: () - 10/24 CBC w/ auto diff MCH pg 26.0 35.0 30.0 FINAL Abdulkadri Jaime Campbell a [facility] [place], [address] [place] [phone] 0 Phone: () - 10/24 CBC w/ auto diff MCHC g/dL 30.0 35.0 32.4 FINAL Abdulkadir Jaime Campbell a [facility] [place], [address] [place] [id number] 0 Phone: () - 10/24 CBC w/ auto diff MPV fL 9.5 13.4 10.1 FINAL Abdulkadir Jaime Campbell a [facility] [place], [address] [place] [id number] 0 Phone: () - 10/24 CBC w/ auto diff RDW % 11.3 15.6 14.40 FINAL Abdulkadir Jaime Campbell a [facility] [place], [address] [facility] [address] [place] [phone] 0 Phone: () - 10/24 CMP Album in g/dL 3.2 5.2 4.0 FINAL [facility] Jaime weinberg [facility], [address] [place] [address] [phone] 0 Phone: () - 10/24 CMP Alkal ine phosp hatas e U/L 46.0 116.0 78 FINAL [facility] Jaime Rajan a [facility], [facility] [address] [place] [address] [id number] 0 Phone: () - 10/24 CMP ALT/S GPT U/L 7.0 40.0 12 FINAL [facility] Jaime Rajanot a [facility], [address] [place] [address] [id number] 0 Phone: () - 10/24 CMP AST/S GOT U/L 13.0 40.0 26 FINAL [facility] Jaime Rajan a [facility], [address] [place] [address] [place] [id number] 0 Phone: () - 10/24 CMP BUN mg/dL 9.0 23.0 23 FINAL [facility] [place] [address] [id number] 0 Phone: () - 10/24 CMP Calci um mg/dL 8.7 10.4 10.1 FINAL Abd[place]adir [place] [address] [id number] 0 Phone: () - 10/24 CMP Chlor narinder mmol/L 96.0 114.0 107 FINAL Abdulkadir Jain [place] [address] [id number] 0 Phone: () - 10/24 CMP CO2 [...] 96 hour stability window. FINAL Abdulkadir Sandoval [place] [address] [id number] 0 Phone: () - 10/24 CMP Creat inine mg/dL 0.5 1.2 1.16 FINAL Abdulkadir Jain [place] [address] [id number] 0 Phone: () - 10/24 CMP GFR estim ate ml/min /1.73m ^2 62.1 GFR is calculate d using the CKD-EPI equation. FINAL bAdulkadir [place] [address] [id number] 0 Phone: () - 10/24 CMP Gluco se mg/dL 73.0 126.0 110 FINAL [facility] Jaime [place] [address] [id number] 0 Phone: () - 10/24 CMP Potas sium mmol/L 3.5 5.1 3.8 FINAL [facility] Jaime [place] [address] [id number] 0 Phone: () - 10/24 CMP Sodiu m mmol/L 136.0 145.0 145 FINAL Abdulkadir Jaime Campebll a [facility] [place], [address] [place] [id number] 0 Phone: () - 10/24 CMP Bilir ubin, total mg/dL 0.3 1.2 0.5 FINAL Abdulkadir Jaime Campbell a [facility] [place], [address] [place] [id number] 0 Phone: () - 10/24 CMP Total prote in g/dL 5.7 8.2 6.4 FINAL Abdulkadir Jaime Campbell a [facility] [place], [address] [place] [id number] 0 Phone: () - 11/03 [facility] other lab See patient access registrar d 01/18 CBC w/ auto diff WBC K/uL 3.0 8.9 5.0 FINAL Abdulkadir Jaime Campbell a [facility] [place], [address] [facility] [address] [facility] [place] [id number] 0 Phone: () - 01/18 CBC w/ auto diff HGB g/dL 12.5 16.6 11.3 Low FINAL Abdulkadir Jaime Campbell a [facility] [place], [address] [place] [address] [facility] [address] [facility] [place] [id number] 0 Phone: () - 01/18 CBC w/ auto diff PLT K/uL 113.0 364.0 177 FINAL Abdulkadir Jaime Rajanot a [facility] [place], [address] [facility] [place] [id number] 0 Phone: () - 01/18 CBC w/ auto diff Cayetano # (ANC) K/uL 1.6 6.6 2.8 FINAL Abdulkadir Jaime Rajanot a [facility] [place], [address] [facility] [place] [id number] 0 Phone: () - 01/18 CBC w/ auto diff Cayetano % % 43.0 74.0 55.5 FINAL Abdulkadir Jaime Rajanot [facility] [place], [address] [place] [id number] 0 Phone: () - 01/18 CBC w/ auto diff IG % % 0.0 0.5 0.2 FINAL Abdulkadir Campbell a [facility] [place], [address] [place] [id number] 0 Phone: () - 01/18 CBC w/ auto diff IG # K/uL 0.0 0.03 0.01 FINAL Abdulkadir Rajanot a [facility] [place], [address] [place] [id number] 0 Phone: () - 01/18 CBC w/ auto diff LY % % 14.0 41.0 31.7 FINAL Abdulkadir Rajanot a [facility] [place], [address] [place] [id number] 0 Phone: () - 01/18 CBC w/ auto diff MO % % 6.0 15.0 10.6 FINAL Abdulkadir Campbell a [facility] [place], [address] [place] [id number] 0 Phone: () - 01/18 CBC w/ auto diff EO % % 0.0 7.0 1.6 FINAL Abdulkadir Campbell a [facility] [place], [address] [place] [id number] 0 Phone: () - 01/18 CBC w/ auto diff BA % % 0.0 2.0 0.4 FINAL Abdulkadir Campbell a [facility] [place], [address] [place] [id number] 0 Phone: () - 01/18 CBC w/ auto diff LY # K/uL 0.4 3.6 1.6 FINAL Abdulkadir Campbell a [facility] [place], [address] [place] [id number] 0 Phone: () - 01/18 CBC w/ auto diff MO # K/uL 0.2 1.3 0.5 FINAL Abdulkadir Jaime Rajanot a [facility] [place], [address] [place] [id number] 0 Phone: () - 01/18 CBC w/ auto diff EO # K/uL 0.0 0.6 0.1 FINAL Abdulkadir Jaime Rajanot a [facility] [place], [address] [place] [id number] 0 Phone: () - 01/18 CBC w/ auto diff BA # K/uL 0.0 0.2 0.0 FINAL Abdulkadir Jaime Rajanot a [facility] [place], [address] [place] [id number] 0 Phone: () - 01/18 CBC w/ auto diff NRBC % #/100W BC 0.0 0.2 0.0 FINAL Abdulkadir Jaime Rajanot [facility] [place], [address] [place] [id number] 0 Phone: () - 01/18 CBC w/ auto diff RBC M/uL 4.2 5.6 3.56 Low FINAL Abdulkadir Jaime Rajanot a [facility] [place], [address] [place] [id number] 0 Phone: () - 01/18 CBC w/ auto diff HCT % 39.0 49.0 33.2 Low FINAL Abdulkadir Jaime Rajanot a [facility] [place], [address] [place] [id number] 0 Phone: () - 01/18 CBC w/ auto diff MCV fL 80.0 104.0 93.3 FINAL Abdulkadir Jaime Rajanot a [facility] [place], [address] [place] [id number] 0 Phone: () - 01/18 CBC w/ auto diff MCH pg 26.0 35.0 31.7 FINAL Abdulkadir Jaime Rajanot a [facility] [place], [address] [place] [id number] 0 Phone: () - 01/18 CBC w/ auto diff MCHC g/dL 30.0 35.0 34.0 FINAL Abdulkadir weinberg [facility] - [place], [address] [facility] [address] [place] [id number] 0 Phone: () - 01/18 CBC w/ auto diff MPV fL 9.5 13.4 11.2 FINAL Abdulkadirshell weinberg [facility] - [place], [address] [facility] [address] [facility] [place] [id number] 0 Phone: () - 01/18 CBC w/ auto diff RDW % 11.3 15.6 13.50 FINAL Abdulkadirshell weinberg [facility] - [place], [address] [facility] [address] [facility] [place] [id number] 0 Phone: () - 01/18 CMP Album in g/dL 3.2 5.2 4.0 FINAL [facility] [address] [facility] [address] [place] [address] [id number] 0 Phone: () - 01/18 CMP Alkal ine phosp hatas e U/L 46.0 116.0 77 FINAL [facility], [address] [facility] [address] [place] [address] [id number] 0 Phone: () - 01/18 CMP ALT/S GPT U/L 7.0 40.0 14 FINAL [facility] [place] [address] [place] [address] [id number] 0 Phone: () - 01/18 CMP AST/S GOT U/L 13.0 40.0 29 FINAL [facility] Jaime [facility], [address] [facility] [address] [place] [address] [id number] 0 Phone: () - 01/18 CMP BUN mg/dL 9.0 23.0 23 FINAL [facility], [address] [facility] [address] [place] [address] [id number] 0 Phone: () - 01/18 CMP Calci um mg/dL 8.7 10.4 9.7 FINAL [place] [address] [id number] 0 Phone: () - 01/18 CMP Chlor narinder mmol/L 96.0 114.0 110 FINAL [facility], [address] [facility] [address] [facility] [id number] 0 Phone: () - 01/18 CMP CO2 [...] of the 96 hour stability window. FINAL [place] [address] [id number] 0 Phone: () - 01/18 CMP Creat inine mg/dL 0.5 1.2 1.28 High FINAL [place] [address] [id number] 0 Phone: () - 01/18 CMP GFR estim ate ml/min /1.73m ^2 55.1 Low GFR is calculate d using the CKD-EPI equation. FINAL [place] [address] [id number] 0 Phone: () - 01/18 CMP Gluco se mg/dL 73.0 126.0 101 FINAL [facility] [address] [id number] 0 Phone: () - 01/18 CMP Potas sium mmol/L 3.5 5.1 4.1 [facility] [address] [id number] 0 Phone: () - 01/18 CMP Sodiu m mmol/L 136.0 145.0 144 FINAL [facility] [place], [address] [id number] 0 Phone: () - 01/18 CMP Bilir ubin, total mg/dL 0.3 1.2 0.2 Low FINAL [facility] Jaime [place] [address] [id number] 0 Phone: () - 01/18 CMP Total prote in g/dL 5.7 8.2 6.2 FINAL [facility] Jaime [place] [address] [id number] 0 Phone: () - 01/18 PSA diagn ostic panel PSA ng/ml 0.0 4.0 PSA less than 0.05; Repeate d Test performed at [facility] on a Maps InDeed Immunoass ay Analyzer that uses an immunoenz ymometric sandwich assay for analysis. Patient testing should not be performed using multiple methodunruly plaza due to analytica l variation seen between test methodunruly plaza. FINAL [facility] [place] [address] [id number] 0 Phone: () - 05/04 CMP Album in g/dL 3.2 5.2 4.1 FINAL [facility] Jaime [place] [address] [id number] 0 Phone: () - 05/04 CMP Alkal ine phosp hatas e U/L 46.0 116.0 111 FINAL [place] [address] [id number] 0 Phone: () - 05/04 CMP ALT/S GPT U/L 7.0 40.0 19 FINAL [place] [address] [id number] 0 Phone: () - 05/04 CMP AST/S GOT U/L 13.0 40.0 34 FINAL [place] [address] [id number] 0 Phone: () - 05/04 CMP BUN mg/dL 9.0 23.0 19.0 FINAL [facility] Sandoval [facility], [address] [facility] [id number] 0 Phone: () - 05/04 CMP Calci um mg/dL 8.7 10.4 9.8 FINAL [facility], [address] [facility] [id number] 0 Phone: () - 05/04 CMP Chlor narinder mmol/L 96.0 114.0 107 FINAL [facility], [address] [facility] [id number] 0 Phone: () - 05/04 CMP CO2 [...] of the 96 hour stability window. FINAL [facility], [address] [facility] 100 [facility] [id number] 0 Phone: () - 05/04 CMP Creat inine mg/dL 0.5 1.2 1.06 FINAL [facility] [address] [place] [address] [id number] 0 Phone: () - 05/04 CMP GFR estim ate ml/min /1.73m ^2 69.0 GFR is calculate d using the CKD-EPI equation. FINAL [facility], [address] [facility] [id number] 0 Phone: () - 05/04 CMP Gluco se mg/dL 73.0 126.0 73 FINAL [facility], [address] [facility] [id number] 0 Phone: () - 05/04 CMP Potas sium mmol/L 3.5 5.1 4.2 FINAL [facility], [address] [facility] [id number] 0 Phone: () - 05/04 CMP Sodiu m mmol/L 136.0 145.0 144 FINAL Abdulkadir weinberg [facility], [address] [facility] [id number] 0 Phone: () - 05/04 CMP Bilir ubin, total mg/dL 0.3 1.2 0.3 FINAL Abdulkadir Jaime weinberg [facility], [address] [facility] [id number] 0 Phone: () - 05/04 CMP Total prote in g/dL 5.7 8.2 6.5 FINAL Abdulkadirshell weinberg [facility] [address] [facility] [address] [facility] [id number] 0 Phone: () - 05/04 PSA diagn ostic panel PSA ng/ml 0.0 4.0 PSA less than 0.05 Test performed at [facility] on a Maps InDeed Immunoass ay Analyzer that uses an immunoenz ymometric sandwich assay for analysis. Patient testing should not be performed using multiple methodolo mela due to analytica l variation seen between test methodunruly plaza. FINAL Abdulkadirshell weinberg [facility], [address] [facility] [address] [facility] [id number] 0 Phone: () - 05/04 CBC w/ auto diff WBC K/uL 3.0 8.9 4.3 FINAL Abdulkadir Jaime weinberg [facility], [address] [facility] [address] [facility] [id number] 0 Phone: () - 05/04 CBC w/ auto diff HGB g/dL 12.5 16.6 11.5 Low FINAL [facility] Jaime weinberg [facility] - [place] , [facility] [address] [facility] [address] [facility] [place] [id number] 0 Phone: () - 05/04 CBC w/ auto diff PLT K/uL 113.0 364.0 222 FINAL [facility] Jaime [facility] [place] , [address] [place] [address] [facility] [address] [place] [id number] 0 Phone: () - 05/04 CBC w/ auto diff Cayetano # (ANC) K/uL 1.6 6.6 2.0 FINAL Abdulkadirshell Rajanot a [facility] - [place], [address] [place] [id number] 0 Phone: () - 05/04 CBC w/ auto diff Cayetano % % 43.0 74.0 46.4 FINAL Abdulkadirshell Rajanot a [facility] - [place], [address] [place] [id number] 0 Phone: () - 05/04 CBC w/ auto diff IG % % 0.0 0.5 0.0 FINAL Abdulkadirshell Rajanot a [facility] - [place], [address] [place] [id number] 0 Phone: () - 05/04 CBC w/ auto diff IG # K/uL 0.0 0.03 0.00 FINAL Abdulkadirshell Rajanot a [facility] - [place], [address] [place] [id number] 0 Phone: () - 05/04 CBC w/ auto diff LY % % 14.0 41.0 38.0 FINAL Abdulkadirshell Rajanot a [facility] - [place], [address] [place] [id number] 0 Phone: () - 05/04 CBC w/ auto diff MO % % 6.0 15.0 10.0 FINAL Abdulkadirshell Rajanot a [facility] - [place], [address] [place] [id number] 0 Phone: () - 05/04 CBC w/ auto diff EO % % 0.0 7.0 4.9 FINAL Abdulkadirshell Rajanot a [facility] - [place], [address] [place] [id number] 0 Phone: () - 05/04 CBC w/ auto diff BA % % 0.0 2.0 0.7 FINAL Abdulkadir Sandoval [place] [facility] [place], [address] [place] [id number] 0 Phone: () - 05/04 CBC w/ auto diff LY # K/uL 0.4 3.6 1.6 FINAL Abdulkadir Jaime Rajanot a [facility] - [place], [address] [place] [id number] 0 Phone: () - 05/04 CBC w/ auto diff MO # K/uL 0.2 1.3 0.4 FINAL Abdulkadir Jaime Rajanot a [facility] - [place], [address] [place] [id number] 0 Phone: () - 05/04 CBC w/ auto diff EO # K/uL 0.0 0.6 0.2 FINAL Abdulkadir Jaime Rajanot a [facility] - [place], [address] [place] [id number] 0 Phone: () - 05/04 CBC w/ auto diff BA # K/uL 0.0 0.2 0.0 FINAL Abdulkadir Jaime Rajanot [facility] - [place], [address] [address] [place] [id number] 0 Phone: () - 05/04 CBC w/ auto diff NRBC % #/100W BC 0.0 0.2 0.0 FINAL Abd[facility]adir Jaime [facility] - [place], [address] [place] [phone] 0 Phone: () - 05/04 CBC w/ auto diff RBC M/uL 4.2 5.6 3.89 Low FINAL Abdulkadir Jaime [facility] - [place], [address] [place] [id number] 0 Phone: () - 05/04 CBC w/ auto diff HCT % 39.0 49.0 34.7 Low FINAL Abdulkadir Jaime [facility] - [place], [address] [place] [id number] 0 Phone: () - 05/04 CBC w/ auto diff MCV fL 80.0 104.0 89.2 FINAL Abdulkadir Jaime weinberg [facility] - [place], [address] [facility] [address] [place] [id number] 0 Phone: () - 05/04 CBC w/ auto diff MCH pg 26.0 35.0 29.6 FINAL Abdulkadir Jaime we[facility] - [place], [address] [facility] [address] [place] [id number] 0 Phone: () - 05/04 CBC w/ auto diff MCHC g/dL 30.0 35.0 33.1 FINAL Abdulkadir Jaime weinberg [facility] - [place], [address] [facility] [address] [place] [id number] 0 Phone: () - 05/04 CBC w/ auto diff MPV fL 9.5 13.4 11.0 FINAL Abdulkadir Jaime weinberg [facility] - [place], [address] [facility] [address] [place] [id number] 0 Phone: () - 05/04 CBC w/ auto diff RDW % 11.3 15.6 14.10 FINAL Abdulkadirshell weinberg [facility] - [place], [address] [place] [address] d [address] [place] [id number] 0 Phone: () - 08/03 CMP Album in g/dL 3.2 5.2 3.9 FINAL Abdulkadirshell weinberg [place] [address] [address] [facility] [address] [place] [address] [id number] 0 Phone: () - 08/03 CMP Alkal ine phosp hatas e U/L 46.0 116.0 117 High FINAL Abdulkadir Jaime weinberg Oncology [place] [address] [address] [facility] [address] [place] [address] [id number] 0 Phone: () - 08/03 CMP ALT/S GPT U/L 7.0 40.0 14 FINAL Abdulkadir Jaime Campbell a [place] [address] [address] [facility] [address] [place] [address] [id number] 0 Phone: () - 08/03 CMP AST/S GOT U/L 13.0 40.0 28 FINAL [facility], [facility] [address] [id number] 0 Phone: () - 08/03 CMP BUN mg/dL 9.0 23.0 16.0 FINAL [place] [address] [address] [facility] 100 [facility] [id number] 0 Phone: () - 08/03 CMP Calci um mg/dL 8.7 10.4 9.5 FINAL [place] [address] [address] [facility] [address] [id number] 0 Phone: () - 08/03 CMP Chlor narinder mmol/L 96.0 114.0 109 FINAL [place] [address] [id number] 0 Phone: () - 08/03 CMP CO2 [...] of the 96 hour stability window. FINAL [place] [address] [id number] 0 Phone: () - 08/03 CMP Creat inine mg/dL 0.5 1.2 1.13 FINAL [place] [address] [address] [facility] [address] [id number] 0 Phone: () - 08/03 CMP GFR estim ate ml/min /1.73m ^2 63.8 GFR is calculate d using the CKD-EPI equation. FINAL [facility], [facility] [address] [id number] 0 Phone: () - 08/03 CMP Gluco se mg/dL 73.0 126.0 100 FINAL [facility], [address] [place] [address] [id number] 0 Phone: () - 08/03 CMP Potas sium mmol/L 3.5 5.1 4.5 FINAL [facility], [address] [facility] [id number] 0 Phone: () - 08/03 CMP Sodiu m mmol/L 136.0 145.0 144 FINAL [facility] [address] [facility] [address] [place] [address] [id number] 0 Phone: () - 08/03 CMP Bilir ubin, total mg/dL 0.3 1.2 0.3 FINAL [facility] [address] [facility] [address] [place] [address] [id number] 0 Phone: () - 08/03 CMP Total prote in g/dL 5.7 8.2 6.2 FINAL [facility], [address] [id number] 0 Phone: () - 08/03 PSA diagn ostic panel PSA ng/ml 0.0 4.0 PSA less than 0.05 Test performed at [facility] on a Maps InDeed Immunoass ay Analyzer that uses an immunoenz ymometric sandwich assay for analysis. Patient testing should not be performed using multiple methodunruly plaza due to analytica l variation seen between test methodunruly plaza. FINAL [facility], [address] [facility] [address] [place] [address] [id number] 0 Phone: () - 08/03 CBC w/ auto diff WBC K/uL 3.0 8.9 4.3 FINAL [facility], [address] [facility] [address] [facility] [id number] 0 Phone: () - 08/03 CBC w/ auto diff HGB g/dL 12.5 16.6 10.9 Low FINAL [facility] [place], [address] [place] [id number] 0 Phone: () - 08/03 CBC w/ auto diff PLT K/uL 113.0 364.0 201 FINAL Abdulkadirshell Campbell a [facility] - [place], [address] [place] [id number] 0 Phone: () - 08/03 CBC w/ auto diff Cayetano # (ANC) K/uL 1.6 6.6 2.4 FINAL Abdulkadirshell Rajanot a [facility] - [place], [address] [place] [id number] 0 Phone: () - 08/03 CBC w/ auto diff Cayetano % % 43.0 74.0 55.3 FINAL Abdulkadirshell Rajanot a [facility] - [place], [address] [place] [id number] 0 Phone: () - 08/03 CBC w/ auto diff IG % % 0.0 0.5 0.2 FINAL Abdulkadirshell Campbell a [facility] - [place], [address] [place] [id number] 0 Phone: () - 08/03 CBC w/ auto diff IG # K/uL 0.0 0.03 0.01 FINAL Abdulkadirshell Campbell a [facility] - [place], [address] [place] [id number] 0 Phone: () - 08/03 CBC w/ auto diff LY % % 14.0 41.0 31.9 FINAL Abdulkadirshell Rajanot a [facility] - [place], [address] [place] [id number] 0 Phone: () - 08/03 CBC w/ auto diff MO % % 6.0 15.0 10.2 FINAL Abdulkadirshell Rajanot a [facility] - [place], [address] [place] [id number] 0 Phone: () - 08/03 CBC w/ auto diff EO % % 0.0 7.0 1.9 FINAL Abdulkadir Jaime [facility] - [place], [address] [place] [id number] 0 Phone: () - 08/03 CBC w/ auto diff BA % % 0.0 2.0 0.5 FINAL Abdulkadir Jaime [facility] - [place], [address] [place] [id number] 0 Phone: () - 08/03 CBC w/ auto diff LY # K/uL 0.4 3.6 1.4 FINAL Abdulkadir Jaime [facility]ot [facility] - [place], [address] [place] [id number] 0 Phone: () - 08/03 CBC w/ auto diff MO # K/uL 0.2 1.3 0.4 FINAL Abdulkadir Jaime [facility] - [place], [address] [place] [id number] 0 Phone: () - 08/03 CBC w/ auto diff EO # K/uL 0.0 0.6 0.1 FINAL Abdulkadir Jaime [facility] - [place], [address] [place] [id number] 0 Phone: () - 08/03 CBC w/ auto diff BA # K/uL 0.0 0.2 0.0 FINAL Abdulkadir Jaime [facility] - [place], [address] [place] [id number] 0 Phone: () - 08/03 CBC w/ auto diff NRBC % #/100W BC 0.0 0.2 0.0 FINAL Abdulkadir Jaime [facility] - [place], [address] [place] [id number] 0 Phone: () - 08/03 CBC w/ auto diff RBC M/uL 4.2 5.6 3.69 Low FINAL Abdulkadir Jaime [facility] - [place], [address] [place] [id number] 0 Phone: () - 08/03 CBC w/ auto diff HCT % 39.0 49.0 34.2 Low FINAL Abdulkadir weinberg [facility] - [place], [address] [place] [id number] 0 Phone: () - 08/03 CBC w/ auto diff MCV fL 80.0 104.0 92.7 FINAL Abdulkadir weinberg [facility] - [place], [address] [place] [id number] 0 Phone: () - 08/03 CBC w/ auto diff MCH pg 26.0 35.0 29.5 FINAL Abdulkadir weinberg [facility] - [place], [address] [place] [id number] 0 Phone: () - 08/03 CBC w/ auto diff MCHC g/dL 30.0 35.0 31.9 FINAL Abdulkadir weinberg [facility] - [place], [address] [place] [id number] 0 Phone: () - 08/03 CBC w/ auto diff MPV fL 9.5 13.4 10.4 FINAL Abdulkadir weinberg [facility] - [place], [address] [facility] [address] [place] [id number] 0 Phone: () - 08/03 CBC w/ auto diff RDW % 11.3 15.6 15.30 FINAL Abdulkadir weinberg [facility] - [place], [address] [facility] [address] [place] [id number] 0 Phone: () - 11/02 PSA diagn ostic panel PSA ng/ml 0.0 4.0 PSA less than 0.05 Test performed at [facility] on a Nafhamass ay Analyzer that uses an immunoenz ymometric sandwich assay for analysis. Patient testing should not be performed using multiple methodunruly plaza due to analytica l variation seen between test methodunruly palza. FINAL Abdulkadir Jaime Rajaneddie weinberg [facility] - [place], [address] [place] [id number] 0 Phone: () - 11/02 CBC w/ auto diff WBC K/uL 3.0 8.9 4.8 FINAL Abdulkadir Jaime Rajanot [facility] - [place], [address] [place] [id number] 0 Phone: () - 11/02 CBC w/ auto diff HGB g/dL 12.5 16.6 9.7 Low FINAL Abdulkadir Jaime [facility] - [place], [address] [place] [id number] 0 Phone: () - 11/02 CBC w/ auto diff PLT K/uL 113.0 364.0 244 FINAL Abdulkadir Jaime [facility]ot [facility] - [place], [address] [place] [id number] 0 Phone: () - 11/02 CBC w/ auto diff Cayetano # (ANC) K/uL 1.6 6.6 2.1 FINAL Abdulkadir Jaime [facility]ot [facility] - [place], [address] [place] [id number] 0 Phone: () - 11/02 CBC w/ auto diff Cayetano % % 43.0 74.0 44.9 FINAL Abdulkadirshell Campbell a [facility] - [place], [address] [place] [id number] 0 Phone: () - 11/02 CBC w/ auto diff IG % % 0.0 0.5 0.2 FINAL Abdulkadir Jaime Rajanot [facility] - [place], [address] [place] [id number] 0 Phone: () - 11/02 CBC w/ auto diff IG # K/uL 0.0 0.03 0.01 FINAL Abdulkadir Jaime [facility] - [place], [address] [place] [id number] 0 Phone: () - 11/02 CBC w/ auto diff LY % % 14.0 41.0 37.5 FINAL Abdulkadir Jaime [facility] - [place], [address] [place] [id number] 0 Phone: () - 11/02 CBC w/ auto diff MO % % 6.0 15.0 12.8 FINAL Abdulkadir Jaime [facility] - [place], [address] [place] [id number] 0 Phone: () - 11/02 CBC w/ auto diff EO % % 0.0 7.0 4.0 FINAL Abdulkadir Jaime [facility] - [place], [address] [place] [id number] 0 Phone: () - 11/02 CBC w/ auto diff BA % % 0.0 2.0 0.6 FINAL Abdulkadir Jaime [facility]ot [facility] - [place], [address] [place] [id number] 0 Phone: () - 11/02 CBC w/ auto diff LY # K/uL 0.4 3.6 1.8 FINAL Abdulkadir Jaime [facility] - [place], [address] [place] [id number] 0 Phone: () - 11/02 CBC w/ auto diff MO # K/uL 0.2 1.3 0.6 FINAL Abdulkadir Jaime [facility]ot [facility] - [place], [address] [place] [id number] 0 Phone: () - 11/02 CBC w/ auto diff EO # K/uL 0.0 0.6 0.2 FINAL Abdulkadir Jaime [facility] - [place], [address] [place] [id number] 0 Phone: () - 11/02 CBC w/ auto diff BA # K/uL 0.0 0.2 0.0 FINAL Abdulkadir Jaime [facility] - [place], [address] [place] [id number] 0 Phone: () - 11/02 CBC w/ auto diff NRBC % #/100W BC 0.0 0.2 0.0 FINAL Abdulkadir Jaime [facility] - [place], [address] [place] [id number] 0 Phone: () - 11/02 CBC w/ auto diff RBC M/uL 4.2 5.6 3.50 Low FINAL Abdulkadir Jaime [facility] - [place], [address] [place] [id number] 0 Phone: () - 11/02 CBC w/ auto diff HCT % 39.0 49.0 30.8 Low FINAL Abdulkadir Jaime [facility] - [place], [address] [place] [id number] 0 Phone: () - 11/02 CBC w/ auto diff MCV fL 80.0 104.0 88.0 FINAL Abdulkadir Sandovalbrody Rajanot a [facility] - [place], [address] [place] [id number] 0 Phone: () - 11/02 CBC w/ auto diff MCH pg 26.0 35.0 27.7 FINAL Abdulkadir Sandovalbrody Rajanot [facility] - [place], [address] [place] [id number] 0 Phone: () - 11/02 CBC w/ auto diff MCHC g/dL 30.0 35.0 31.5 FINAL Abdulkadir Jaime [facility]ot [facility] - [place], [address] [place] [id number] 0 Phone: () - 11/02 CBC w/ auto diff MPV fL 9.5 13.4 10.3 FINAL Abdulkadir Jaime [facility] - [place], [address] [place] [id number] 0 Phone: () - 11/02 CBC w/ auto diff RDW % 11.3 15.6 14.50 FINAL [facility] le, [address] [facility] [id number] 0 Phone: () - 11/02 CMP Album in g/dL 3.2 5.2 4.0 FINAL [place] [address] [place] [address] [id number] 0 Phone: () - 11/02 CMP Alkal ine phosp hatas e U/L 46.0 116.0 106 FINAL [place] [address] [place] [address] [id number] 0 Phone: () - 11/02 CMP ALT/S GPT U/L 7.0 40.0 14 FINAL [place] [address] [address] [facility] [address] [place] [address] [id number] 0 Phone: () - 11/02 CMP AST/S GOT U/L 13.0 40.0 25 FINAL [place] [address] [address] [facility] [address] [place] [address] [id number] 0 Phone: () - 11/02 CMP BUN mg/dL 9.0 23.0 20.0 FINAL [place] [address] [address] [facility] [address] [place] [address] [id number] 0 Phone: () - 11/02 CMP Calci um mg/dL 8.7 10.4 9.5 FINAL [place] [address] [address] [facility] [address] [place] [address] [id number] 0 Phone: () - 11/02 CMP Chlor narinder mmol/L 96.0 114.0 109 FINAL [place] [address] [address] [facility] [address] [id number] 0 Phone: () - 11/02 CMP CO2 [...] of the 96 hour stability window. FINAL [place] [address] [id number] 0 Phone: () - 11/02 CMP Creat inine mg/dL 0.5 1.2 1.07 FINAL [place] [address] [id number] 0 Phone: () - 11/02 CMP GFR estim ate ml/min /1.73m ^2 68.0 GFR is calculate d using the CKD-EPI equation. FINAL [address] [id number] 0 Phone: () - 11/02 CMP Gluco se mg/dL 73.0 126.0 84 FINAL [place] [address] [id number] 0 Phone: () - 11/02 CMP Potas sium mmol/L 3.5 5.1 4.0 FINAL [place] [address] [id number] 0 Phone: () - 11/02 CMP Sodiu m mmol/L 136.0 145.0 145 FINAL [place] [address] [id number] 0 Phone: () - 11/02 CMP Bilir ubin, total mg/dL 0.3 1.2 0.4 FINAL [place] [address] [id number] 0 Phone: () - 11/02 CMP Total prote in g/dL 5.7 8.2 6.3 FINAL [place] [address] [id number] 0 Phone: () - 11/08 Di tin panel Di tin NG/ML 27.0 300.0 7.90 Low FINAL [facility], [address] [facility] [address] [facility] [address] [facility] [id number] 0 Phone: () - 11/08 Iron profi le TIBC ug/dL 250.0 425.0 385 FINAL [facility] [address] [facility] [address] [facility] [address] [facility] [id number] 0 Phone: () - 11/08 Iron profi le Iron ug/dL 50.0 175.0 42 Low FINAL [facility], [address] [facility] [address] [facility] [id number] 0 Phone: () - 11/08 Iron profi le Unbou nd iron capac ity ug/dL 75.0 410.0 343 FINAL [facility], [address] [facility] [address] [place] [address] [id number] 0 Phone: () - 11/08 Iron profi le Iron, % satur ation % 20.0 55.0 11 Low FINAL [facility], [address] [facility] [address] [place] [address] [id number] 0 Phone: () - 11/08 Vitam in B12 panel Vitam in B12 pg/mL 230.0 1050.0 879 Test performed at [facility]. [address] [facility] [place] [address] FINAL [facility], [address] [facility] [address] [place] [address] [id number] 0 Phone: () - 11/08 Folat e panel Folat e, serum ng/mL 3.0 16.0 Folate greater than 20 FINAL [facility], [address] [facility] [address] [place] [address] [id number] 0 Phone: () - 11/08 Immun oglob ulin measu remen t IgG, quant mg/dL 610.0 1616.0 649.53 Test performed at [facility] on a Binding Site Optilite Analyzer that uses a turbidime tric method for analysis. Patient testing should not be performed using multiple methodolo girandee due to analytica l variation seen between test methodolo gies. FINAL Abdulkadirshell weinberg Oncology [facility], [address] [facility] [id number] 0 Phone: () - 11/08 Immun oglob ulin measu remen t IgA, quant mg/dL 61.0 348.0 214.98 Test performed at [facility] on a Binding Site Optilite Analyzer that uses a turbidime tric method for analysis. Patient testing should not be performed using multiple methodolo gies due to analytica l variation seen between test methodolo gies. FINAL Abdulkadir Jaime weinberg On[facility], [address] [facility] [address] [facility] [id number] 0 Phone: () - 11/08 Immun oglob ulin measu remen t IgM, quant mg/dL 35.0 242.0 43.44 Test performed at [facility] on a Binding Site Optilite Analyzer that uses a turbidime tric method for analysis. Patient testing should not be performed using multiple methodolo gies due to analytica l variation seen between test methodolo gies. FINAL Abdulkadirshell weinberg On[facility], [address] [facility] [address] [facility] [facility] [id number] 0 Phone: () - 11/08 WBC K/uL 3.0 8.9 4.5 FINAL Abdulkadirshell Campbell a [facility] - [place], [address] [place] [address] d [address] [facility] [id number] 0 Phone: () - 11/08 HGB g/dL 12.5 16.6 9.7 Low FINAL Abdulkadirshell Campbell a [facility] - [place], [address] [place] [address] d [address] [place] [id number] 0 Phone: () - 11/08 PLT K/uL 113.0 364.0 225 FINAL Abdulkadirshell Rajanot a [facility] - [place], [address] [place] [address] [facility] [address] [place] [facility] [id number] 0 Phone: () - 11/08 Cayetano % % 43.0 74.0 44.8 FINAL Abdulkadirshell Campbell a [facility] - [place], [address] [place] [id number] 0 Phone: () - 11/08 Cayetano # (ANC) K/uL 1.6 6.6 2.0 FINAL Abdulkadir Jaime [facility]ot [facility] - [place], [address] [place] [id number] 0 Phone: () - 11/08 IG % % 0.0 0.5 0.2 FINAL Abdulkadir Jaime [facility] - [place], [address] [place] [id number] 0 Phone: () - 11/08 IG # K/uL 0.0 0.03 0.01 FINAL Abdulkadir Jaime [facility] - [place], [address] [place] [id number] 0 Phone: () - 11/08 LY % % 14.0 41.0 37.8 FINAL Abdulkadir Sandovalbrody [facility] - [place], [address] [place] [id number] 0 Phone: () - 11/08 MO % % 6.0 15.0 13.0 FINAL Abdulkadirshell Rajanot [facility] - [place], [address] [place] [id number] 0 Phone: () - 11/08 EO % % 0.0 7.0 3.8 FINAL Abdulkadir Jaime [facility] - [place], [address] [place] [id number] 0 Phone: () - 11/08 BA % % 0.0 2.0 0.4 FINAL Abdulkadir Jaime [facility]ot [facility] - [place], [address] [place] [id number] 0 Phone: () - 11/08 LY # K/uL 0.4 3.6 1.7 FINAL Abdulkadir Sandovalbrody Raj[facility]ot [facility] - [place], [address] [place] [id number] 0 Phone: () - 11/08 MO # K/uL 0.2 1.3 0.6 FINAL Abdulkadir Jaime [facility]ot [facility] - [place], [address] [place] [id number] 0 Phone: () - 11/08 EO # K/uL 0.0 0.6 0.2 FINAL Abdulkadir Jaime [facility]ot [facility] - [place], [address] [place] [id number] 0 Phone: () - 11/08 BA # K/uL 0.0 0.2 0.0 FINAL Abdulkadir Jaime [facility]ot [facility] - [place], [address] [place] [id number] 0 Phone: () - 11/08 NRBC % #/100W BC 0.0 0.2 0.0 FINAL Abdulkadir Jaime [facility]ot [facility] - [place], [address] [place] [id number] 0 Phone: () - 11/08 RBC M/uL 4.2 5.6 3.57 Low FINAL Abdulkadir Jaime [facility]ot [facility] - [place], [address] [place] [id number] 0 Phone: () - 11/08 HCT % 39.0 49.0 31.0 Low FINAL Abdulkadir Jaime [facility]ot [facility] - [place], [address] [place] [id number] 0 Phone: () - 11/08 MCV fL 80.0 104.0 86.8 FINAL Abdulkadir Jaime [facility]ot [facility] - [place], [address] [place] [id number] 0 Phone: () - 11/08 MCH pg 26.0 35.0 27.2 FINAL Abdulkadir Sandoval [place] [facility] [place], [address] [place] [id number] 0 Phone: () - 11/08 MCHC g/dL 30.0 35.0 31.3 FINAL Abdulkadir Jaime Campbell a [facility] - [place], [address] [facility] d [address] [place] [id number] 0 Phone: () - 11/08 MPV fL 9.5 13.4 10.6 FINAL Abdulkadir Jaime we[facility] - [place], [address] [facility] [address] [place] [id number] 0 Phone: () - 11/08 RDW % 11.3 15.6 14.60 FINAL Abdulkadir Jaime Campbell a [facility] - [place], [address] [facility] [address] [place] [id number] 0 Phone: () - 11/08 Retic ulocy te, absol [place] M/uL 0.01 0.1 0.07 FINAL Abdulkadir Jaime we[facility] - [place], [address] [facility] [address] [place] [id number] 0 Phone: () - 11/08 Retic ulocy te count % 0.2 1.7 2.04 High FINAL Abdulkadir Jaime we[facility] - [place], [address] [facility] [address] [place] [id number] 0 Phone: () - 11/08 Immat ure retic ulocy te fract ion, % % 0.0 18.8 23.00 High FINAL Abdulkadir Jaime weinberg [facility] - [place], [address] [facility] [address] [place] [id number] 0 Phone: () - 11/08 Retic ulocy te cellu lar hemog lobin pg 28.0 37.0 29.0 FINAL Abdulkadir Jaime Campbell a [facility] - [place], [address] [facility] [address] [place] [id number] 0 Phone: () - 11/08 Immun ofixa tion, serum w/ quant IgG/A /M panel Immun ofixa tion, serum , inter preta tion No monoclo nal peaks detecte d. Interpr eted and signed by Jimenez underwood MD on 023 FINAL Abdulkadir Rajan [facility] - [place], [address] [facility] [id number] 0 Phone: () - 11/08 Path perip heral blood slide revie w panel Patho logy/ Cytol ogy Morph ology SEE RESULTS BELOW CASE REPORTSpe cial Hematolog y Report Case: [id number] ing Provider: Abdulkadir Sandoval MBBS Collected :11/08/20 23 [id number] ing Location: [facility] Received: 3 2151Patho logist: Blake [...] AND DIFFERENT IALHEMATO LOGY PARAMETER STested at: [facility] [place] eRESULTS EXPECTED VALUESWBC : 4.5 4.5-11x10 00/cumm [...] microscop ic examinati on of an appropria [facility].ADD ITIONAL INFORMATI ONInterpr eted at [facility], [facility] - [address], [place] [address] FINAL Abdulkadir Sandoval 01/28 PSA diagn ostic panel PSA ng/mL 0.0 3.9 <0.06 Test performed at [facility] on a [employer] Immunoass ay Analyzer that uses an immunomet yuko immunoass ay technique . Patient testing should not be performed using multiple methodunruly plaza due to analytica l variation seen between test methodunruly plaza. FINAL Abdulkadir Jaime * [facility] [place], [address] [facility] [place] [id number] 0 01/28 CBC w/ auto diff WBC K/uL 3.0 8.9 4.8 FINAL Abdulkadirshell [facility] - [place], [address] [facility] [place] [id number] 0 Phone: () - 01/28 CBC w/ auto diff HGB g/dL 12.5 16.6 12.6 FINAL Abdulkadirshell [facility] - [place], [address] [place] [id number] 0 Phone: () - 01/28 CBC w/ auto diff PLT K/uL 113.0 364.0 155 FINAL Abdulkadirshell [facility] - [place], [address] [place] [id number] 0 Phone: () - 01/28 CBC w/ auto diff Cayetano # (ANC) K/uL 1.6 6.6 2.7 FINAL Abdulkadirshell [facility] - [place], [address] [place] [id number] 0 Phone: () - 01/28 CBC w/ auto diff Cayetano % % 43.0 74.0 54.7 FINAL Abdulkadirshell Campbell [facility] - [place], [address] [place] [id number] 0 Phone: () - 01/28 CBC w/ auto diff IG % % 0.0 0.5 0.2 FINAL Abdulkadirshell [facility] - [place], [address] [place] [id number] 0 Phone: () - 01/28 CBC w/ auto diff IG # K/uL 0.0 0.03 0.01 FINAL Abdulkadirshell [facility] - [place], [address] [place] [id number] 0 Phone: () - 01/28 CBC w/ auto diff LY % % 14.0 41.0 33.1 FINAL Abdulkadirshell [facility] - [place], [address] [place] [id number] 0 Phone: () - 01/28 CBC w/ auto diff MO % % 6.0 15.0 8.5 FINAL Abdulkadirshell [facility] - [place], [address] [place] [id number] 0 Phone: () - 01/28 CBC w/ auto diff EO % % 0.0 7.0 3.1 FINAL Abdulkadir Jaime [facility] [place], [address] [place] [id number] 0 Phone: () - 01/28 CBC w/ auto diff BA % % 0.0 2.0 0.4 FINAL Abdulkadir Jaime [facility] [place], [address] [place] [id number] 0 Phone: () - 01/28 CBC w/ auto diff LY # K/uL 0.4 3.6 1.6 FINAL Abdulkadir Jaime [facility] [place], [address] [place] [id number] 0 Phone: () - 01/28 CBC w/ auto diff MO # K/uL 0.2 1.3 0.4 FINAL Abdulkadir Jaime [facility] [place], [address] [place] [id number] 0 Phone: () - 01/28 CBC w/ auto diff EO # K/uL 0.0 0.6 0.2 FINAL Abdulkadir Jaime [facility] [place], [address] [place] [id number] 0 Phone: () - 01/28 CBC w/ auto diff BA # K/uL 0.0 0.2 0.0 FINAL Abdulkadir Jaime [facility] [place], [address] [place] [id number] 0 Phone: () - 01/28 CBC w/ auto diff NRBC % #/100W BC 0.0 0.2 0.0 FINAL Abdulkadir Jaime [facility] [place], [address] [place] [id number] 0 Phone: () - 01/28 CBC w/ auto diff RBC M/uL 4.2 5.6 4.25 FINAL Abdulkadir Jaime [facility] [place], [address] [place] [id number] 0 Phone: () - 01/28 CBC w/ auto diff HCT % 39.0 49.0 39.6 FINAL Abdulkadir Jaime [facility] [place], [address] [place] [id number] 0 Phone: () - 01/28 CBC w/ auto diff MCV fL 80.0 104.0 93.2 FINAL Abdulkadir Jaime [facility] [place], [address] [place] [id number] 0 Phone: () - 01/28 CBC w/ auto diff MCH pg 26.0 35.0 29.6 FINAL Abdulkadir Sandovalbrody [facility] - [place], [address] [place] [id number] 0 Phone: () - 01/28 CBC w/ auto diff MCHC g/dL 30.0 35.0 31.8 FINAL Abdulkadir Jaime [facility] [place], [address] [place] [id number] 0 Phone: () - 01/28 CBC w/ auto diff MPV fL 9.5 13.4 10.5 FINAL Abdulkadir Sandoval [facility] [place], [address] [place] [id number] 0 Phone: () - 01/28 CBC w/ auto diff RDW % 11.3 15.6 15.90 High FINAL Abdulkadir Sandoval [facility] [place], [address] [place] [id number] 0 Phone: () - 01/28 CMP Album in g/dL 3.5 5.0 3.8 FINAL Abdulkadir Jaime * [facility] [place], [address] [facility] [place] [id number] 0 01/28 CMP Alkal ine phosp hatas e U/L 36.0 125.0 105 FINAL Abdulkadir Sandoval * [facility], [address] [facility] [id number] 0 01/28 CMP ALT/S GPT U/L 0.0 49.0 23 FINAL Abdulkadir Sandoval * [facility], [address] [facility] [id number] 0 01/28 CMP AST/S GOT U/L 17.0 59.0 36 FINAL Abdulkadir Sandoval * [facility], [address] [id number] 0 01/28 CMP BUN mg/dL 9.0 20.0 23.0 High FINAL Abdulkadir Sandoval * [facility], [address] [id number] 0 01/28 CMP Calci um mg/dL 8.4 10.2 9.8 FINAL Abdulkadir Sandoval * [facility], [address] [id number] 0 01/28 CMP Chlor narinder mmol/L 96.0 107.0 110 High FINAL Abdulkadir Sandoval * [facility], [address] [facility] [id number] 0 01/28 CMP CO2 mmol/L 22.0 30.0 [...] hour stability window. FINAL Abdulkadir Sandoval * [facility], [address] [facility] [address] [id number] 0 01/28 CMP Creat inine mg/dL 0.66 1.25 1.00 FINAL Abdulkadir Sandoval * [facility], [facility] [address] [id number] 0 01/28 CMP GFR estim ate ml/min /1.73m ^2 73.6 GFR is calculate d using the CKD-EPI equation. FINAL Abdulkadir Sandoval * [facility], [facility] [address] [place] [address] [id number] 0 01/28 CMP Gluco se mg/dL 74.0 100.0 104 High FINAL Abdulkadir Sandoval * [facility], [facility] [address] [id number] 0 01/28 CMP Potas sium mmol/L 3.5 5.1 4.1 FINAL Abdulkadir Sandoval * [facility], [facility] [address] [place] [address] [id number] 0 01/28 CMP Sodiu m mmol/L 137.0 145.0 141 FINAL Abdulkadir Sandoval * [facility], [address] [id number] 0 01/28 CMP Bilir ubin, total mg/dL 0.2 1.3 0.7 FINAL Abdulkadir Sandoval * [facility], [facility] [address] [id number] 0 01/28 CMP Total prote in g/dL 6.3 8.2 6.5 FINAL Abdulkadir Sandoval * [facility], [address] [facility] [place] [id number] 0 05/16 Di tin panel Di tin ng/mL 17.9 464.0 21.90 FINAL Abdulkadir Jaime * [facility] [place], [address] [facility] [place] [id number] 0 05/16 CBC w/ auto diff WBC K/uL 3.0 8.9 5.4 FINAL Abdulkadir Jaime [facility] [place], [address] [place] [id number] 0 Phone: () - 05/16 CBC w/ auto diff HGB g/dL 12.5 16.6 12.6 FINAL Abdulkadir Jaime [facility] [place], [address] [place] [id number] 0 Phone: () - 05/16 CBC w/ auto diff PLT K/uL 113.0 364.0 222 FINAL Abdulkadir Jaime [facility] [place], [address] [place] [id number] 0 Phone: () - 05/16 CBC w/ auto diff Cayetano # (ANC) K/uL 1.6 6.6 3.1 FINAL Abdulkadir Jaime [facility] [place], [address] [place] [id number] 0 Phone: () - 05/16 CBC w/ auto diff Cayetano % % 43.0 74.0 56.8 FINAL Abdulkadir Jaime [facility] [place], [address] [place] [id number] 0 Phone: () - 05/16 CBC w/ auto diff IG % % 0.0 0.5 0.2 FINAL Abdulkadir Jaime [facility] [place], [address] [place] [id number] 0 Phone: () - 05/16 CBC w/ auto diff IG # K/uL 0.0 0.03 0.01 FINAL Abdulkadir Jaime [facility] [place], [address] [place] [id number] 0 Phone: () - 05/16 CBC w/ auto diff LY % % 14.0 41.0 32.5 FINAL Abdulkadir Jaime [facility] [place], [address] [place] [id number] 0 Phone: () - 05/16 CBC w/ auto diff MO % % 6.0 15.0 7.5 FINAL Abdulkadir Jaime [facility] [place], [address] [place] [id number] 0 Phone: () - 05/16 CBC w/ auto diff EO % % 0.0 7.0 2.4 FINAL Abdulkadir Jaime [facility] [place], [address] [place] [id number] 0 Phone: () - 05/16 CBC w/ auto diff BA % % 0.0 2.0 0.6 FINAL Abdulkadirshell [facility] [place], [address] [place] [id number] 0 Phone: () - 05/16 CBC w/ auto diff LY # K/uL 0.4 3.6 1.7 FINAL Abdulkadir Jaime [facility] [place], [address] [place] [id number] 0 Phone: () - 05/16 CBC w/ auto diff MO # K/uL 0.2 1.3 0.4 FINAL Abdulkadir Jaime [facility] [place], [address] [place] [id number] 0 Phone: () - 05/16 CBC w/ auto diff EO # K/uL 0.0 0.6 0.1 FINAL Abdulkadir Jaime [facility] [place], [address] [place] [id number] 0 Phone: () - 05/16 CBC w/ auto diff BA # K/uL 0.0 0.2 0.0 FINAL Abdulkadir Jaime [facility] [place], [address] [place] [id number] 0 Phone: () - 05/16 CBC w/ auto diff NRBC % #/100W BC 0.0 0.2 0.0 FINAL Abdulkadir Jaime [facility] [place], [address] [place] [id number] 0 Phone: () - 05/16 CBC w/ auto diff RBC M/uL 4.2 5.6 3.94 Low FINAL Abdulkadir Jaime [facility] [place], [address] [place] [id number] 0 Phone: () - 05/16 CBC w/ auto diff HCT % 39.0 49.0 38.5 Low FINAL Abdulkadir Jaime [facility] [place], [address] [place] [id number] 0 Phone: () - 05/16 CBC w/ auto diff MCV fL 80.0 104.0 97.7 FINAL Abdulkadir Jaiem [facility] [place], [address] [place] [id number] 0 Phone: () - 05/16 CBC w/ auto diff MCH pg 26.0 35.0 32.0 FINAL Abdulkadir Jaime [facility] [place], [address] [place] [id number] 0 Phone: () - 05/16 CBC w/ auto diff MCHC g/dL 30.0 35.0 32.7 FINAL Abdulkadir Jaime [facility] [place], [address] [place] [id number] 0 Phone: () - 05/16 CBC w/ auto diff MPV fL 9.5 13.4 10.3 FINAL Abdulkadir Sandoval [facility] [place], [address] [facility] [address] [place] [id number] 0 Phone: () - 05/16 CBC w/ auto diff RDW % 11.3 15.6 13.10 FINAL Abdulkadir Sandoval [facility] [place], [address] [facility] [address] [facility] [id number] 0 Phone: () - 05/16 CMP Album in g/dL 3.5 5.0 4.2 FINAL Abdulkadir Sandoval * [facility], [facility] [address] [id number] 0 05/16 CMP Alkal ine phosp hatas e U/L 36.0 125.0 104 FINAL Abdulkadir Sandoval * [facility], [facility] [address] [id number] 0 05/16 CMP ALT/S GPT U/L 0.0 49.0 19 FINAL Abdulkadir Sandoval * [facility], [facility] [address] [place] [address] [id number] 0 05/16 CMP AST/S GOT U/L 17.0 59.0 39 FINAL Abdulkadir Sandoval * [facility], [facility] [facility] [address] [id number] 0 05/16 CMP BUN mg/dL 9.0 20.0 23.0 High FINAL Abdulkadir Sandoval * [facility] a [facility], [facility] [address] [id number] 0 05/16 CMP Calci um mg/dL 8.4 10.2 9.3 FINAL Abdulkadir Sandoval * [facility], [facility] [address] [id number] 0 05/16 CMP Chlor narinder mmol/L 96.0 107.0 104 FINAL Abdulkadir weinberg [facility], [address] [facility] [address] [facility] [id number] 0 05/16 CMP CO2 mmol/L 22.0 30.0 [...] the 96 hour stability window. FINAL Abdulkadir Rajan sultana [facility], [facility] [address] [id number] 0 05/16 CMP Creat inine mg/dL 0.66 1.25 1.00 FINAL Abdulkadir weinberg [facility], [address] [facility] [address] [id number] 0 05/16 CMP GFR estim ate ml/min /1.73m ^2 73.5 GFR is calculate d using the CKD-EPI equation. FINAL Abdulkadir Rajan sultana [facility], [address] [facility] [address] [id number] 0 05/16 CMP Gluco se mg/dL 74.0 100.0 71 Low FINAL Abdulkadir Rajan a [facility], [address] [facility] [facility] [address] [facility] [id number] 0 05/16 CMP Potas sium mmol/L 3.5 5.1 4.2 FINAL Abdulkadir Rajan a [facility], [address] [facility] [facility] [address] [id number] 0 05/16 CMP Sodiu m mmol/L 137.0 145.0 141 FINAL Abdulkadir Sandoval * [facility], [facility] [address] [place] [address] [id number] 0 05/16 CMP Bilir ubin, total mg/dL 0.2 1.3 0.3 FINAL Abdulkadir Jaime * [facility], [facility] [address] [id number] 0 05/16 CMP Total prote in g/dL 6.3 8.2 6.7 FINAL Abdulkadir Jaime * [address] [place] [address] [id number] 0 05/16 PSA diagn ostic panel PSA ng/mL 0.0 3.9 0.08 Test performed at [facility] on a [employer] ay Analyzer that uses an immunomet yuko immunoass ay technique . Patient testing should not be performed using multiple methodolo gies due to analytica l variation seen between test methodolo gies. FINAL Abdulkadir Sandoval * [address] [place] [address] [id number] 0 08/05 PSA diagn ostic panel PSA ng/ml 0.0 3.9 <0.06 Repeate d Test performed at [facility] on a [employer] [employer] that uses an immunomet yuko immunoass ay technique . Patient testing should not be performed using multiple methodolo gies due to analytica l variation seen between test methodolo gies. FINAL Abdulkadir Sandoval * [facility], [address] [place] [address] [place] [address] [id number] 0 08/05 Di tin panel Di tin ng/mL 17.9 464.0 20.90 FINAL Abdulkadir Sandoval * [facility], [address] [facility] [id number] 0 08/05 CMP Album in g/dL 3.5 5.0 3.8 FINAL Abdulkadir Sandoval * [facility], [address] [facility] [id number] 0 08/05 CMP Alkal ine phosp hatas e U/L 36.0 125.0 127 High FINAL Abdulkadir Sandoval * [facility], [address] [facility] [id number] 0 08/05 CMP ALT/S GPT U/L 0.0 49.0 18 FINAL Abdulkadir Sandoval * [facility], [address] [facility] [id number] 0 08/05 CMP AST/S GOT U/L 17.0 59.0 32 FINAL Abdulkadir Sandoval * [facility], [address] [facility] [id number] 0 08/05 CMP BUN mg/dL 9.0 20.0 27.0 High FINAL Abdulkadir Sandoval * [facility], [address] [facility] [id number] 0 08/05 CMP Calci um mg/dL 8.4 10.2 9.5 FINAL Abdulkadir Sandoval * [facility], [address] [facility] [id number] 0 08/05 CMP Chlor narinder mmol/L 96.0 107.0 108 High FINAL Abdulkadir Sandoval * [facility], [address] [facility] [id number] 0 08/05 CMP CO2 mmol/L 22.0 30.0 [...] hour stability window. FINAL Abdulkadir Jaime * [facility] [address] [facility] [address] [id number] 0 08/05 CMP Creat inine mg/dL 0.66 1.25 1.00 FINAL Abdulkadir Jaime * [facility], [facility] [address] [id number] 0 08/05 CMP GFR estim ate ml/min /1.73m ^2 73.4 GFR is calculate d using the CKD-EPI equation. FINAL Abdulkadir Jaime * [facility], [address] [facility] [address] [id number] 0 08/05 CMP Gluco se mg/dL 74.0 100.0 119 High FINAL Abdulkadir Jaime * [facility], [address] [facility] [address] [id number] 0 08/05 CMP Potas sium mmol/L 3.5 5.1 3.8 FINAL Abdulkadir Jaime * [facility], [address] [id number] 0 08/05 CMP Sodiu m mmol/L 137.0 145.0 140 FINAL Abdulkadir Jaime * [facility], [address] [id number] 0 08/05 CMP Bilir ubin, total mg/dL 0.2 1.3 0.4 FINAL Abdulkadir Jaime * [facility] [place], [address] [facility] [place] [id number] 0 08/05 CMP Total prote in g/dL 6.3 8.2 6.6 FINAL Abdulkadir Jaime * [place] [facility] [place], [address] [facility] [place] [id number] 0 08/05 CBC w/ auto diff WBC K/uL 3.0 8.9 5.6 FINAL Abdulkadir Jaime [facility] [place], [address] [place] [id number] 0 Phone: () - 08/05 CBC w/ auto diff HGB g/dL 12.5 16.6 10.9 Low FINAL Abdulkadir Jaime [facility] [place], [address] [place] [id number] 0 Phone: () - 08/05 CBC w/ auto diff PLT K/uL 113.0 364.0 192 FINAL Abdulkadir Jaime [facility] [place], [address] [place] [id number] 0 Phone: () - 08/05 CBC w/ auto diff Cayetano # (ANC) K/uL 1.6 6.6 3.3 FINAL Abdulkadir Jaime [facility] [place], [address] [place] [id number] 0 Phone: () - 08/05 CBC w/ auto diff Cayetano % % 43.0 74.0 58.6 FINAL Abdulkadir Jaime [facility] [place], [address] [place] [id number] 0 Phone: () - 08/05 CBC w/ auto diff IG % % 0.0 0.5 0.2 FINAL Abdulkadir Jaime [facility] [place], [address] [place] [id number] 0 Phone: () - 08/05 CBC w/ auto diff IG # K/uL 0.0 0.03 0.01 FINAL Abdulkadirshell [facility] - [place], [address] [place] [id number] 0 Phone: () - 08/05 CBC w/ auto diff LY % % 14.0 41.0 22.7 FINAL Abdulkadirshell Campbell [facility] - [place], [address] [place] [id number] 0 Phone: () - 08/05 CBC w/ auto diff MO % % 6.0 15.0 9.4 FINAL Abdulkadirshell [facility] - [place], [address] [place] [id number] 0 Phone: () - 08/05 CBC w/ auto diff EO % % 0.0 7.0 8.6 High FINAL Adbulkadirshell [facility] - [place], [address] [place] [id number] 0 Phone: () - 08/05 CBC w/ auto diff BA % % 0.0 2.0 0.5 FINAL Abdulkadir weinberg [facility] - [place], [address] [place] [id number] 0 Phone: () - 08/05 CBC w/ auto diff LY # K/uL 0.4 3.6 1.3 FINAL Abdulkadirshell [facility] - [place], [address] [place] [id number] 0 Phone: () - 08/05 CBC w/ auto diff MO # K/uL 0.2 1.3 0.5 FINAL Abdulkadir Campbell [facility] - [place], [address] [place] [id number] 0 Phone: () - 08/05 CBC w/ auto diff EO # K/uL 0.0 0.6 0.5 FINAL Abdulkadir Sandoval [facility] [facility] [place], [address] [place] [id number] 0 Phone: () - 08/05 CBC w/ auto diff BA # K/uL 0.0 0.2 0.0 FINAL Abdulkadir Jaime [facility] [place], [address] [place] [id number] 0 Phone: () - 08/05 CBC w/ auto diff NRBC % #/100W BC 0.0 0.2 0.0 FINAL Abdulkadir Jaime [facility] - [place], [address] [place] [id number] 0 Phone: () - 08/05 CBC w/ auto diff RBC M/uL 4.2 5.6 3.43 Low FINAL Abdulkadir Jaime [facility] [place], [address] [place] [id number] 0 Phone: () - 08/05 CBC w/ auto diff HCT % 39.0 49.0 32.7 Low FINAL Abdulkadir Jaime [facility] - [place], [address] [place] [id number] 0 Phone: () - 08/05 CBC w/ auto diff MCV fL 80.0 104.0 95.3 FINAL Abdulkadir Jaime [facility] [place], [address] [place] [id number] 0 Phone: () - 08/05 CBC w/ auto diff MCH pg 26.0 35.0 31.8 FINAL Abdulkadir Jaime [facility] - [place], [address] [place] [id number] 0 Phone: () - 08/05 CBC w/ auto diff MCHC g/dL 30.0 35.0 33.3 FINAL Abdulkadir Jaime [facility] - [place], [address] [place] [id number] 0 Phone: () - 08/05 CBC w/ auto diff MPV fL 9.5 13.4 10.3 FINAL [facility]ulkadir [facility]ime [facility], [address] [facility] [address] [facility] [id number] 0 Phone: () - 08/05 CBC w/ auto diff RDW % 11.3 15.6 13.40 FINAL Abdulkadir Jaime [facility], [address] [facility] [address] [facility] [place] [id number] 0 Phone: () - 11/17 CMP Album in g/dL 3.5 5.0 4.2 FINAL Abdulkadir Sandoval * [facility] , [address] [id number] 0 11/17 CMP Alkal ine phosp hatas e U/L 36.0 125.0 118 FINAL Abdulkadir Sandoval * [facility] , [address] [facility] [id number] 0 11/17 CMP ALT/S GPT U/L 0.0 49.0 20 FINAL Abdulkadir Sandoval * [facility] , [address] [id number] 0 11/17 CMP AST/S GOT U/L 17.0 59.0 39 FINAL Abdulkadir Sandoval * [facility] , [address] [id number] 0 11/17 CMP BUN mg/dL 9.0 20.0 30.0 High FINAL Abdulkadir Sandoval * [facility] , [address] [id number] 0 11/17 CMP Calci um mg/dL 8.4 10.2 9.6 FINAL Abdulkadir Sandoval * [facility] , [address] [facility] [id number] 0 11/17 CMP Chlor narinder mmol/L 96.0 107.0 104 FINAL Abdulkadir Jaime * [facility] , [address] [address] [facility] [id number] 0 11/17 CMP CO2 mmol/L 22.0 30.0 [...] hour stability window. FINAL Abdulkadir Sandoval * [facility] , [address] [facility] [address] [facility] [id number] 0 11/17 CMP Creat inine mg/dL 0.66 1.25 1.00 FINAL Abdulkadir Jaime * [facility] , [address] [facility] [address] [facility] [id number] 0 11/17 CMP GFR estim ate ml/min /1.73m ^2 73.3 GFR is calculate d using the CKD-EPI equation. FINAL Abdulkadir Jaime * [facility] , [address] [facility] [id number] 0 11/17 CMP Gluco se mg/dL 74.0 100.0 117 High FINAL Abdulkadir Jaime * [facility] , [address] [facility] [facility] [address] [facility] [id number] 0 11/17 CMP Potas sium mmol/L 3.5 5.1 4.2 FINAL Abdulkadir Jaime * [facility] , [address] [facility] [id number] 0 11/17 CMP Sodiu m mmol/L 137.0 145.0 138 FINAL Abdulkadir Sandoval * [facility] , [address] [facility] [id number] 0 11/17 CMP Bilir ubin, total mg/dL 0.2 1.3 0.5 FINAL Abdulkadir Sandoval * [facility] , [address] [facility] [id number] 0 11/17 CMP Total prote in g/dL 6.3 8.2 6.7 FINAL Abdulkadir Sandoval * [facility] , [address] [facility] [id number] 0 11/17 PSA diagn ostic panel PSA ng/ml 0.0 3.9 <0.06 Test performed at [facility] on a [employer] Immunoass ay Analyzer that uses an immunomet yuko immunoass ay technique . Patient testing should not be performed using multiple methodolo gies due to analytica l variation seen between test methodunruly plaza. FINAL Abdulkadir Sandoval * [facility] , [address] [facility] [id number] 0 11/17 CBC w/ auto diff WBC K/uL 3.0 8.9 6.0 FINAL Abdulkadir Sandoval Eyadl [facility] , [facility] [address] [facility] [address] [place] [id number] 0 11/17 CBC w/ auto diff HGB g/dL 12.5 16.6 12.3 Low FINAL Abdulkadir Sandovalbrody Castanol [facility] , [facility] [address] [employer] [address] [place] [facility] [id number] 0 11/17 CBC w/ auto diff PLT K/uL 113.0 364.0 174 FINAL Abdulkadir Sandoval [place] [facility] , [facility] [address] [place] [id number] 0 11/17 CBC w/ auto diff [place] # (ANC) K/uL 1.6 6.6 3.4 FINAL Abdulkadir Sandoval [place] [facility] [place] [facility] , [address] [place] [id number] 0 11/17 CBC w/ auto diff [place] % % 43.0 74.0 55.8 FINAL Abdulkadir Sandoval [place] [facility] , [address] [place] [id number] 0 11/17 CBC w/ auto diff IG % % 0.0 0.5 0.2 FINAL Abdulkadir Sandoval [place] [facility] , [address] [place] [id number] 0 11/17 CBC w/ auto diff IG # K/uL 0.0 0.03 0.01 FINAL Abdulkadir Jaime [place] [facility] , [address] [place] [id number] 0 11/17 CBC w/ auto diff LY % % 14.0 41.0 29.0 FINAL Abdulkadir Jaime [place] [facility] , [address] [place] [id number] 0 11/17 CBC w/ auto diff MO % % 6.0 15.0 10.3 FINAL Abdulkadir Jaime [place] [facility] , [address] [place] [id number] 0 11/17 CBC w/ auto diff EO % % 0.0 7.0 4.2 FINAL Abdulkadir Sandoval [place] [facility] , [address] [place] [id number] 0 11/17 CBC w/ auto diff BA % % 0.0 2.0 0.5 FINAL Abdulkadir Sandoval [place] [facility] , [address] [place] [id number] 0 11/17 CBC w/ auto diff LY # K/uL 0.4 3.6 1.7 FINAL Abdulkadir Sandoval [place] [facility] , [address] [place] [id number] 0 11/17 CBC w/ auto diff MO # K/uL 0.2 1.3 0.6 FINAL Abdulkadir Sandoval [place] [facility] , [address] [place] [id number] 0 11/17 CBC w/ auto diff EO # K/uL 0.0 0.6 0.3 FINAL Abdulkadir Sandoval [place] [facility] , [address] [place] [id number] 0 11/17 CBC w/ auto diff BA # K/uL 0.0 0.2 0.0 FINAL Abdulkadir Sandoval [place] [facility] , [address] [place] [id number] 0 11/17 CBC w/ auto diff NRBC % #/100W BC 0.0 0.2 0.0 FINAL Abdulkadir Sandoval [place] [facility] [place] [facility] , [address] [place] [id number] 0 11/17 CBC w/ auto diff RBC M/uL 4.2 5.6 4.17 Low FINAL Abdulkadir Sandoval [place] [facility] [place] [facility] , [address] [place] [id number] 0 11/17 CBC w/ auto diff HCT % 39.0 49.0 38.9 Low FINAL Abdulkadir Jaime [place] [facility] [place] [facility] , [address] [place] [id number] 0 11/17 CBC w/ auto diff MCV fL 80.0 104.0 93.3 FINAL Abdulkadir Jaime [place] [facility] , [address] [place] [id number] 0 11/17 CBC w/ auto diff MCH pg 26.0 35.0 29.5 FINAL Abdulkadir Jaime [place] [facility] , [address] [place] [id number] 0 11/17 CBC w/ auto diff MCHC g/dL 30.0 35.0 31.6 FINAL Abdulkadir Jaime [place] [facility] , [address] [place] [id number] 0 11/17 CBC w/ auto diff MPV fL 9.5 13.4 11.5 FINAL Abdulkadir Jaime [place] [facility] , [address] [place] [id number] 0 11/17 CBC w/ auto diff RDW % 11.3 15.6 14.60 FINAL Abdulkadir Jaime [place] [facility] [place] [facility] , [address] [address] [place] [id number] 0 02/27 Misc other lab See patient access registrar d 03/27 Di tin panel Di tin ng/mL 17.9 464.0 27.20 FINAL Abdulkadir Sandoval * [place] [facility] [place] [facility] , [address] [facility] [id number] 0 03/27 PSA diagn ostic panel PSA ng/ml 0.0 3.9 0.33 Test performed at [facility] on a [employer] 7600 Immunoass ay Analyzer that uses an immunomet yuko immunoass ay technique . Patient testing should not be performed using juma plaza due to analytica l variation seen between test malik plaza. FINAL Abdulkadir Jaime * [place] [facility] [place] [facility] , [address] [facility] [place] [id number] 0 03/27 CBC w/ auto diff MCHC g/dL 30.0 35.0 32.7 FINAL Abdulkadir Jaime [place] [facility] , [address] [place] [id number] 0 03/27 CBC w/ auto diff MPV fL 9.5 13.4 10.1 FINAL Abdulkadir Jaime [place] [facility] [place] [facility] , [address] [place] [id number] 0 03/27 CBC w/ auto diff RDW % 11.3 15.6 13.30 FINAL [facility] Jaime [place] [facility] , [address] [place] [id number] 0 03/27 CBC w/ auto diff WBC K/uL 3.0 8.9 4.6 FINAL Abdulkadir Jaime [place] [facility] [place] [facility] , [address] [place] [id number] 0 03/27 CBC w/ auto diff HGB g/dL 12.5 16.6 13.0 FINAL Abdulkadir Jaime [place] [facility] [place] [facility] , [address] [place] [id number] 0 03/27 CBC w/ auto diff PLT K/uL 113.0 364.0 178 FINAL Abdulkadir Sandoval [place] [facility] [place] [facility] , [address] [place] [id number] 0 03/27 CBC w/ auto diff [place] # (ANC) K/uL 1.6 6.6 2.8 FINAL Abdulkadir Sandoval [place] [facility] [place] [facility] , [address] [place] [id number] 0 03/27 CBC w/ auto diff [place] % % 43.0 74.0 61.1 FINAL Abdulkadir Sandoval [place] [facility] , [address] [place] [id number] 0 03/27 CBC w/ auto diff IG % % 0.0 0.5 0.0 FINAL Abdulkadir Sandoval [place] [facility] , [address] [place] [id number] 0 03/27 CBC w/ auto diff IG # K/uL 0.0 0.03 0.00 FINAL Abdulkadir Jaime [place] [facility] , [address] [place] [id number] 0 03/27 CBC w/ auto diff LY % % 14.0 41.0 25.4 FINAL Abdulkadir Sandoval [place] [facility] , [address] [place] [id number] 0 03/27 CBC w/ auto diff MO % % 6.0 15.0 11.3 FINAL Abdulkadir Jaime [place] [facility] , [address] [place] [id number] 0 03/27 CBC w/ auto diff EO % % 0.0 7.0 1.5 FINAL Abdulkadir Sandoval [place] [facility] , [address] [place] [id number] 0 03/27 CBC w/ auto diff BA % % 0.0 2.0 0.7 FINAL Abdulkadir Sandoval [place] [facility] , [address] [place] [id number] 0 03/27 CBC w/ auto diff LY # K/uL 0.4 3.6 1.2 FINAL Abdulkadir Sandoval [place] [facility] , [address] [place] [id number] 0 03/27 CBC w/ auto diff MO # K/uL 0.2 1.3 0.5 FINAL Abdulkadir Sandoval [place] [facility] , [address] [place] [id number] 0 03/27 CBC w/ auto diff EO # K/uL 0.0 0.6 0.1 FINAL Abdulkadir Sandoval [place] [facility] , [address] [place] [id number] 0 03/27 CBC w/ auto diff BA # K/uL 0.0 0.2 0.0 FINAL Abdulkadir Sandoval [place] [facility] , [address] [place] [id number] 0 03/27 CBC w/ auto diff NRBC % #/100W BC 0.0 0.2 0.0 FINAL Abdulkadir Sandoval [place] [facility] , [address] [place] [id number] 0 03/27 CBC w/ auto diff RBC M/uL 4.2 5.6 4.19 Low FINAL Abdulkadir Sandoval [place] [facility] , [address] [place] [id number] 0 03/27 CBC w/ auto diff HCT % 39.0 49.0 39.8 FINAL Abdulkadir Sandoval [place] [facility] , [address] [address] [facility] [id number] 0 03/27 CBC w/ auto diff MCV fL 80.0 104.0 95.0 FINAL [facility] , [address] [facility] [address] [facility] [id number] 0 03/27 CBC w/ auto diff MCH pg 26.0 35.0 31.0 FINAL Abdulkadir Jaime [facility] , [address] [address] [facility] [id number] 0 03/27 CMP Album in g/dL 3.5 5.0 4.2 FINAL Abdulkadir Sandoval * [facility] , [address] [id number] 0 03/27 CMP Alkal ine phosp hatas e U/L 36.0 125.0 111 FINAL Abdulkadir Sandoval * [facility] , [address] [id number] 0 03/27 CMP ALT/S GPT U/L 0.0 49.0 20 FINAL Abdulkadir Sandoval * [facility] , [address] [id number] 03/27 CMP AST/S GOT U/L 17.0 59.0 40 FINAL Abdulkadir Sandoval * [facility] , [address] [id number] 0 03/27 CMP BUN mg/dL 9.0 20.0 21.0 High FINAL Abdulkadir Sandoval * [facility] , [address] [id number] 0 03/27 CMP Calci um mg/dL 8.4 10.2 9.4 FINAL Abdulkadir Jain * [facility] , [facility] [address] [id number] 0 03/27 CMP Chlor narinder mmol/L 96.0 107.0 101 FINAL Abdulkadir Jaime * [facility] , [facility] [address] [id number] 0 03/27 CMP CO2 mmol/L 22.0 30.0 [...] hour stability window. FINAL Abdulkadir Jaime * [facility] , [facility] [address] [id number] 0 03/27 CMP Creat inine mg/dL 0.66 1.25 1.00 FINAL Abdulkadir Jaime * [facility] , [facility] [address] [id number] 0 03/27 CMP GFR estim ate ml/min /1.73m ^2 73.1 GFR is calculate d using the CKD-EPI equation. FINAL [facility] Jaime * [facility] , [facility] [address] [id number] 0 03/27 CMP Gluco se mg/dL 74.0 100.0 81 FINAL Abdulkadir Jaime * [facility] , [facility] [address] [id number] 0 03/27 CMP Potas sium mmol/L 3.5 5.1 4.3 FINAL Abdulkadir Sandoval * [facility] , [address] [facility] [address] [facility] [id number] 0 03/27 CMP Sodiu m mmol/L 137.0 145.0 139 FINAL Abdulkadir Sandoval * [facility] , [address] [facility] [address] [facility] [id number] 0 03/27 CMP Bilir ubin, total mg/dL 0.2 1.3 0.3 FINAL Abdulkadir Sandoval * [facility] , [address] [facility] [address] [facility] [id number] 0 03/27 CMP Total prote in g/dL 6.3 8.2 6.6 FINAL Abdulkadir Sandoval * [facility] , [address] [facility] [address] [facility] [id number] 0 08/05 [facility] other lab See patient access registrar d 08/05 [facility] other lab See patient access registrar d Medications Date Name Route Dose Frequency Instructions Start Date End Date Status Fill Status Indication 04/28 Diphenh ydramin e-Aceta minophe n Oral 25 mg-500 mg 1.0 tablet prn insomnia active 07/25 Hydroco done-Ac etamino phen Oral 10 mg-325 mg PRN active 04/28 Naproxe n Sodium Oral 1.0 tablet prn pain active 04/28 Polyeth ylene Glycol Oral Powder gram/d ose either 1/2 dose daily or full dose every other night prn constipation active 07/25 Cyclobe nzaprin e Oral PRN active 11/08 Tamsulo sin Oral QD active 04/28 Aspirin Oral orally 81.0 mg daily active 08/12 Flutica sone-Um eclidin -Vilant er Inhaler 100 mcg-62. 5 mcg-25 mcg/act uation QD 1 puff QD active 04/02 diphenh ydramin e hydroch loride 0.5 MG/ML Injecta ble Solutio n intraven ously 50.0 mg Re-initiate treatment only upon physician approval. 2026 active Primary malignant neoplasm of prostate (disorder) 04/02 hydroco rtisone 100 MG Injecti on intraven ously 100.0 mg Re-initiate treatment only upon physician approval. 2026 active Primary malignant neoplasm of prostate (disorder) 04/02 methylp redniso lone 2000 MG Injecti on intraven ously 125.0 mg Re-initiate treatment only upon physician approval. 2026 active Primary malignant neoplasm of prostate (disorder) 04/02 famotid ine 10 MG/ML Injecta ble Solutio n intraven ously 20.0 mg Re-initiate treatment only upon physician approval. 2026 active Primary malignant neoplasm of prostate (disorder) 04/02 0.375 ML leuprol narinder acetate 60 MG/ML Prefill ed Syringe subcutan eously 22.5 mg once 2026 active Primary malignant neoplasm of prostate (disorder) 04/02 1 ML epineph rine 1 MG/ML Injecti on intramus cularly 0.3 mg once Re-initiate treatment only upon physician approval. 2026 active Primary malignant neoplasm of prostate (disorder) 04/02 famotid ine 10 MG/ML Injecta ble Solutio n intraven ously 20.0 mg Re-initiate treatment only upon physician approval. 2026 active Primary malignant neoplasm of prostate (disorder) 04/02 0.375 ML leuprol narinder acetate 60 MG/ML Prefill ed Syringe subcutan eously 22.5 mg once 2026 active Primary malignant neoplasm of prostate (disorder) 04/02 hydroco rtisone 100 MG Injecti on intraven ously 100.0 mg Re-initiate treatment only upon physician approval. 2026 active Primary malignant neoplasm of prostate (disorder) 04/02 methylp redniso lone 2000 MG Injecti on intraven ously 125.0 mg Re-initiate treatment only upon physician approval. 2026 active Primary malignant neoplasm of prostate (disorder) 04/02 1 ML epineph rine 1 MG/ML Injecti on intramus cularly 0.3 mg once Re-initiate treatment only upon physician approval. 2026 active Primary malignant neoplasm of prostate (disorder) 04/02 diphenh ydramin e hydroch loride 0.5 MG/ML Injecta ble Solutio n intraven ously 50.0 mg Re-initiate treatment only upon physician approval. 2026 active Primary malignant neoplasm of prostate (disorder) 04/02 1 ML epineph rine 1 MG/ML Injecti on intramus cularly 0.3 mg once Re-initiate treatment only upon physician approval. 2026 active Primary malignant neoplasm of prostate (disorder) 04/02 hydroco rtisone 100 MG Injecti on intraven ously 100.0 mg Re-initiate treatment only upon physician approval. 2026 active Primary malignant neoplasm of prostate (disorder) 04/02 famotid ine 10 MG/ML Injecta ble Solutio n intraven ously 20.0 mg Re-initiate treatment only upon physician approval. 2026 active Primary malignant neoplasm of prostate (disorder) 04/02 methylp redniso lone 2000 MG Injecti on intraven ously 125.0 mg Re-initiate treatment only upon physician approval. 2026 active Primary malignant neoplasm of prostate (disorder) 04/02 diphenh ydramin e hydroch loride 0.5 MG/ML Injecta ble Solutio n intraven ously 50.0 mg Re-initiate treatment only upon physician approval. 2026 active Primary malignant neoplasm of prostate (disorder) 04/02 0.375 ML leuprol narinder acetate 60 MG/ML Prefill ed Syringe subcutan eously 22.5 mg once 2026 active Primary malignant neoplasm of prostate (disorder) 04/02 methylp redniso lone 2000 MG Injecti on intraven ously 125.0 mg Re-initiate treatment only upon physician approval. 2026 active Primary malignant neoplasm of prostate (disorder) 04/02 hydroco rtisone 100 MG Injecti on intraven ously 100.0 mg Re-initiate treatment only upon physician approval. 2026 active Primary malignant neoplasm of prostate (disorder) 04/02 diphenh ydramin e hydroch loride 0.5 MG/ML Injecta ble Solutio n intraven ously 50.0 mg Re-initiate treatment only upon physician approval. 2026 active Primary malignant neoplasm of prostate (disorder) 04/02 1 ML epineph rine 1 MG/ML Injecti on intramus cularly 0.3 mg once Re-initiate treatment only upon physician approval. 2026 active Primary malignant neoplasm of prostate (disorder) 04/02 famotid ine 10 MG/ML Injecta ble Solutio n intraven ously 20.0 mg Re-initiate treatment only upon physician approval. 2026 active Primary malignant neoplasm of prostate (disorder) 04/02 0.375 ML leuprol narinder acetate 60 MG/ML Prefill ed Syringe subcutan eously 22.5 mg once 2026 active Primary malignant neoplasm of prostate (disorder) 04/02 famotid ine 10 MG/ML Injecta ble Solutio n intraven ously 20.0 mg Re-initiate treatment only upon physician approval. 2025 active Primary malignant neoplasm of prostate (disorder) 04/02 0.375 ML leuprol narinder acetate 60 MG/ML Prefill ed Syringe subcutan eously 22.5 mg once 2025 active Primary malignant neoplasm of prostate (disorder) 04/02 methylp redniso lone 2000 MG Injecti on intraven ously 125.0 mg Re-initiate treatment only upon physician approval. 2025 active Primary malignant neoplasm of prostate (disorder) 04/02 diphenh ydramin e hydroch loride 0.5 MG/ML Injecta ble Solutio n intraven ously 50.0 mg Re-initiate treatment only upon physician approval. 2025 active Primary malignant neoplasm of prostate (disorder) 04/02 hydroco rtisone 100 MG Injecti on intraven ously 100.0 mg Re-initiate treatment only upon physician approval. 2025 active Primary malignant neoplasm of prostate (disorder) 05/15 /2025 1 ML epineph rine 1 MG/ML Injecti on intramus cularly 0.3 mg once Re-initiate treatment only upon physician approval. 2025 active Primary malignant neoplasm of prostate (disorder) 04/02 1 ML epineph rine 1 MG/ML Injecti on intramus cularly 0.3 mg once Re-initiate treatment only upon physician approval. 2025 active Primary malignant neoplasm of prostate (disorder) 04/02 methylp redniso lone 2000 MG Injecti on intraven ously 125.0 mg Re-initiate treatment only upon physician approval. 2025 active Primary malignant neoplasm of prostate (disorder) 04/02 0.375 ML leuprol narinder acetate 60 MG/ML Prefill ed Syringe subcutan eously 22.5 mg once 2025 active Primary malignant neoplasm of prostate (disorder) 04/02 diphenh ydramin e hydroch loride 0.5 MG/ML Injecta ble Solutio n intraven ously 50.0 mg Re-initiate treatment only upon physician approval. 2025 active Primary malignant neoplasm of prostate (disorder) 04/02 famotid ine 10 MG/ML Injecta ble Solutio n intraven ously 20.0 mg Re-initiate treatment only upon physician approval. 2025 active Primary malignant neoplasm of prostate (disorder) 04/02 hydroco rtisone 100 MG Injecti on intraven ously 100.0 mg Re-initiate treatment only upon physician approval. 2025 active Primary malignant neoplasm of prostate (disorder) 04/02 0.375 ML leuprol narinder acetate 60 MG/ML Prefill ed Syringe subcutan eously 22.5 mg once 2025 active Primary malignant neoplasm of prostate (disorder) 04/02 famotid ine 10 MG/ML Injecta ble Solutio n intraven ously 20.0 mg Re-initiate treatment only upon physician approval. 2025 active Primary malignant neoplasm of prostate (disorder) 04/02 methylp redniso lone 2000 MG Injecti on intraven ously 125.0 mg Re-initiate treatment only upon physician approval. 2025 active Primary malignant neoplasm of prostate (disorder) 04/02 diphenh ydramin e hydroch loride 0.5 MG/ML Injecta ble Solutio n intraven ously 50.0 mg Re-initiate treatment only upon physician approval. 2025 active Primary malignant neoplasm of prostate (disorder) 04/02 hydroco rtisone 100 MG Injecti on intraven ously 100.0 mg Re-initiate treatment only upon physician approval. 2025 active Primary malignant neoplasm of prostate (disorder) 04/02 1 ML epineph rine 1 MG/ML Injecti on intramus cularly 0.3 mg once Re-initiate treatment only upon physician approval. 2025 active Primary malignant neoplasm of prostate (disorder) 04/02 hydroco rtisone 100 MG Injecti on intraven ously 100.0 mg Re-initiate treatment only upon physician approval. 2025 active Primary malignant neoplasm of prostate (disorder) 04/02 famotid ine 10 MG/ML Injecta ble Solutio n intraven ously 20.0 mg Re-initiate treatment only upon physician approval. 2025 active Primary malignant neoplasm of prostate (disorder) 04/02 1 ML epineph rine 1 MG/ML Injecti on intramus cularly 0.3 mg once Re-initiate treatment only upon physician approval. 2025 active Primary malignant neoplasm of prostate (disorder) 04/02 diphenh ydramin e hydroch loride 0.5 MG/ML Injecta ble Solutio n intraven ously 50.0 mg Re-initiate treatment only upon physician approval. 2025 active Primary malignant neoplasm of prostate (disorder) 04/02 0.375 ML leuprol narinder acetate 60 MG/ML Prefill ed Syringe subcutan eously 22.5 mg once 2025 active Primary malignant neoplasm of prostate (disorder) 04/02 methylp redniso lone 2000 MG Injecti on intraven ously 125.0 mg Re-initiate treatment only upon physician approval. 2025 active Primary malignant neoplasm of prostate (disorder) 04/02 diphenh ydramin e hydroch loride 0.5 MG/ML Injecta ble Solutio n intraven ously 50.0 mg Re-initiate treatment only upon physician approval. 2024 active Primary malignant neoplasm of prostate (disorder) 04/02 1 ML epineph rine 1 MG/ML Injecti on intramus cularly 0.3 mg once Re-initiate treatment only upon physician approval. 2024 active Primary malignant neoplasm of prostate (disorder) 04/02 0.375 ML leuprol narinder acetate 60 MG/ML Prefill ed Syringe subcutan eously 22.5 mg once 2024 active Primary malignant neoplasm of prostate (disorder) 04/02 famotid ine 10 MG/ML Injecta ble Solutio n intraven ously 20.0 mg Re-initiate treatment only upon physician approval. 2024 active Primary malignant neoplasm of prostate (disorder) 04/02 methylp redniso lone 2000 MG Injecti on intraven ously 125.0 mg Re-initiate treatment only upon physician approval. 2024 active Primary malignant neoplasm of prostate (disorder) 04/02 hydroco rtisone 100 MG Injecti on intraven ously 100.0 mg Re-initiate treatment only upon physician approval. 2024 active Primary malignant neoplasm of prostate (disorder) 04/02 diphenh ydramin e hydroch loride 0.5 MG/ML Injecta ble Solutio n intraven ously 50.0 mg Re-initiate treatment only upon physician approval. 2024 active Primary malignant neoplasm of prostate (disorder) 04/02 hydroco rtisone 100 MG Injecti on intraven ously 100.0 mg Re-initiate treatment only upon physician approval. 2024 active Primary malignant neoplasm of prostate (disorder) 04/02 1 ML epineph rine 1 MG/ML Injecti on intramus cularly 0.3 mg once Re-initiate treatment only upon physician approval. 2024 active Primary malignant neoplasm of prostate (disorder) 04/02 famotid ine 10 MG/ML Injecta ble Solutio n intraven ously 20.0 mg Re-initiate treatment only upon physician approval. 2024 active Primary malignant neoplasm of prostate (disorder) 04/02 methylp redniso lone 2000 MG Injecti on intraven ously 125.0 mg Re-initiate treatment only upon physician approval. 2024 active Primary malignant neoplasm of prostate (disorder) 04/02 0.375 ML leuprol narinder acetate 60 MG/ML Prefill ed Syringe subcutan eously 22.5 mg once 2024 active Primary malignant neoplasm of prostate (disorder) 06/15 ascorbi c acid 125 MG / iron carbony l 65 MG Delayed Release Oral Tablet [Vitron -C Reformu lated May 2016] orally 1.0 tab 2 times per week 2024 active Anemia 04/02 methylp redniso lone 2000 MG Injecti on intraven ously 125.0 mg Re-initiate treatment only upon physician approval. 2024 active Primary malignant neoplasm of prostate (disorder) 04/02 hydroco rtisone 100 MG Injecti on intraven ously 100.0 mg Re-initiate treatment only upon physician approval. 2024 active Primary malignant neoplasm of prostate (disorder) 04/02 diphenh ydramin e hydroch loride 0.5 MG/ML Injecta ble Solutio n intraven ously 50.0 mg Re-initiate treatment only upon physician approval. 2024 active Primary malignant neoplasm of prostate (disorder) 04/02 1 ML epineph rine 1 MG/ML Injecti on intramus cularly 0.3 mg once Re-initiate treatment only upon physician approval. 2024 active Primary malignant neoplasm of prostate (disorder) 04/02 0.375 ML leuprol narinder acetate 60 MG/ML Prefill ed Syringe subcutan eously 22.5 mg once 2024 active Primary malignant neoplasm of prostate (disorder) 04/02 famotid ine 10 MG/ML Injecta ble Solutio n intraven ously 20.0 mg Re-initiate treatment only upon physician approval. 2024 active Primary malignant neoplasm of prostate (disorder) 04/02 1 ML epineph rine 1 MG/ML Injecti on intramus cularly 0.3 mg once Re-initiate treatment only upon physician approval. 2024 active Primary malignant neoplasm of prostate (disorder) 04/02 diphenh ydramin e hydroch loride 0.5 MG/ML Injecta ble Solutio n intraven ously 50.0 mg Re-initiate treatment only upon physician approval. 2024 active Primary malignant neoplasm of prostate (disorder) 04/02 0.375 ML leuprol narinder acetate 60 MG/ML Prefill ed Syringe subcutan eously 22.5 mg once 2024 active Primary malignant neoplasm of prostate (disorder) 04/02 hydroco rtisone 100 MG Injecti on intraven ously 100.0 mg Re-initiate treatment only upon physician approval. 2024 active Primary malignant neoplasm of prostate (disorder) 04/02 famotid ine 10 MG/ML Injecta ble Solutio n intraven ously 20.0 mg Re-initiate treatment only upon physician approval. 2024 active Primary malignant neoplasm of prostate (disorder) 04/02 methylp redniso lone 2000 MG Injecti on intraven ously 125.0 mg Re-initiate treatment only upon physician approval. 2024 active Primary malignant neoplasm of prostate (disorder) 03/31 famotid ine 10 MG/ML Injecta ble Solutio n intraven ously 20.0 mg Re-initiate treatment only upon physician approval. 11/20 on hold Primary malignant neoplasm of prostate (disorder) 03/31 1 ML epineph rine 1 MG/ML Injecti on intramus cularly 0.3 mg once Re-initiate treatment only upon physician approval. 11/20 on hold Primary malignant neoplasm of prostate (disorder) 03/31 hydroco rtisone 100 MG Injecti on intraven ously 100.0 mg Re-initiate treatment only upon physician approval. 11/20 on hold Primary malignant neoplasm of prostate (disorder) 03/31 diphenh ydramin e hydroch loride 0.5 MG/ML Injecta ble Solutio n intraven ously 50.0 mg Re-initiate treatment only upon physician approval. 11/20 on hold Primary malignant neoplasm of prostate (disorder) 03/31 methylp redniso lone 2000 MG Injecti on intraven ously 125.0 mg Re-initiate treatment only upon physician approval. 11/20 on hold Primary malignant neoplasm of prostate (disorder) 03/31 0.375 ML leuprol narinder acetate 60 MG/ML Prefill ed Syringe subcutan eously 22.5 mg once 11/20 on hold Primary malignant neoplasm of prostate (disorder) 08/20 famotid ine 20 MG Oral Tablet orally 1.0 tablet every day 2023 active GERD 03/31 famotid ine 10 MG/ML Injecta ble Solutio n intraven ously 20.0 mg Re-initiate treatment only upon physician approval. 2023 active Primary malignant neoplasm of prostate (disorder) 03/31 diphenh ydramin e hydroch loride 0.5 MG/ML Injecta ble Solutio n intraven ously 50.0 mg Re-initiate treatment only upon physician approval. 2023 active Primary malignant neoplasm of prostate (disorder) 03/31 hydroco rtisone 100 MG Injecti on intraven ously 100.0 mg Re-initiate treatment only upon physician approval. 2023 active Primary malignant neoplasm of prostate (disorder) 03/31 1 ML epineph rine 1 MG/ML Injecti on intramus cularly 0.3 mg once Re-initiate treatment only upon physician approval. 2023 active Primary malignant neoplasm of prostate (disorder) 03/31 methylp redniso lone 2000 MG Injecti on intraven ously 125.0 mg Re-initiate treatment only upon physician approval. 2023 active Primary malignant neoplasm of prostate (disorder) 03/31 0.375 ML leuprol narinder acetate 60 MG/ML Prefill ed Syringe subcutan eously 22.5 mg once 08/12 on hold Primary malignant neoplasm of prostate (disorder) 05/27 famotid ine 20 MG Oral Tablet orally 1.0 tablet every day 2023 active GERD 05/20 ascorbi c acid 125 MG / iron carbony l 65 MG Delayed Release Oral Tablet [Vitron -C Reformu May 2016] orally 1.0 tab 2 times per week 2023 active Anemia 03/31 1 ML epineph rine 1 MG/ML Injecti on intramus cularly 0.3 mg once Re-initiate treatment only upon physician approval. 2023 active Primary malignant neoplasm of prostate (disorder) 03/31 hydroco rtisone 100 MG Injecti on intraven ously 100.0 mg Re-initiate treatment only upon physician approval. 2023 active Primary malignant neoplasm of prostate (disorder) 03/31 famotid ine 10 MG/ML Injecta ble Solutio n intraven ously 20.0 mg Re-initiate treatment only upon physician approval. 2023 active Primary malignant neoplasm of prostate (disorder) 03/31 diphenh ydramin e hydroch loride 0.5 MG/ML Injecta ble Solutio n intraven ously 50.0 mg Re-initiate treatment only upon physician approval. 2023 active Primary malignant neoplasm of prostate (disorder) 03/31 methylp redniso lone 2000 MG Injecti on intraven ously 125.0 mg Re-initiate treatment only upon physician approval. 2023 active Primary malignant neoplasm of prostate (disorder) 03/19 acetami nophen 325 MG / hydroco done bitartr ate 5 MG Oral Tablet orally 1.0 tablet every 4 hours 2023 active Primary malignant neoplasm of prostate (disorder) 03/03 famotid ine 20 MG Oral Tablet orally 1.0 tablet every day 2023 active GERD 01/20 ascorbi c acid 125 MG / iron carbony l 65 MG Delayed Release Oral Tablet [Vitron -C Reformu May 2016] orally 1.0 tab daily 2023 active Anemia 12/14 trazodo ne hydroch loride 150 MG Oral Tablet orally 1.0 tablet every day at bedtime 2023 active Insomnia, persistent 11/30 famotid ine 20 MG Oral Tablet orally 1.0 tablet every day 2023 active GERD 11/22 ascorbi c acid 125 MG / iron carbony l 65 MG Delayed Release Oral Tablet [Vitron -C Reformu lated May 2016] orally 1.0 tab daily 2023 active Anemia 09/10 famotid ine 20 MG Oral Tablet orally 1.0 tablet every day 2022 active GERD 08/09 trazodo ne hydroch loride 150 MG Oral Tablet orally 1.0 tablet every day at bedtime 2022 active Insomnia, persistent 03/31 1 ML epineph rine 1 MG/ML Injecti on intramus cularly 0.3 mg once Re-initiate treatment only upon physician approval. 2022 active Primary malignant neoplasm of prostate (disorder) 03/31 hydroco rtisone 100 MG Injecti on intraven ously 100.0 mg Re-initiate treatment only upon physician approval. 2022 active Primary malignant neoplasm of prostate (disorder) 03/31 diphenh ydramin e hydroch loride 0.5 MG/ML Injecta ble Solutio n intraven ously 50.0 mg Re-initiate treatment only upon physician approval. 2022 active Primary malignant neoplasm of prostate (disorder) 03/31 methylp redniso lone 2000 MG Injecti on intraven ously 125.0 mg Re-initiate treatment only upon physician approval. 2022 active Primary malignant neoplasm of prostate (disorder) 03/31 famotid ine 10 MG/ML Injecta ble Solutio n intraven ously 20.0 mg Re-initiate treatment only upon physician approval. 2022 active Primary malignant neoplasm of prostate (disorder) 08/02 apaluta mide 60 MG Oral Tablet orally 120.0 mg daily 2022 active Primary malignant neoplasm of prostate (disorder) 06/19 famotid ine 20 MG Oral Tablet orally 1.0 tablet every day 2022 active GERD 03/31 hydroco rtisone 100 MG Injecti on intraven ously 100.0 mg Re-initiate treatment only upon physician approval. 2022 active Primary malignant neoplasm of prostate (disorder) 03/31 diphenh ydramin e hydroch loride 0.5 MG/ML Injecta ble Solutio n intraven ously 50.0 mg Re-initiate treatment only upon physician approval. 2022 active Primary malignant neoplasm of prostate (disorder) 03/31 1 ML epineph rine 1 MG/ML Injecti on intramus cularly 0.3 mg once Re-initiate treatment only upon physician approval. 2022 active Primary malignant neoplasm of prostate (disorder) 03/31 methylp redniso lone 2000 MG Injecti on intraven ously 125.0 mg Re-initiate treatment only upon physician approval. 2022 active Primary malignant neoplasm of prostate (disorder) 03/31 famotid ine 10 MG/ML Injecta ble Solutio n intraven ously 20.0 mg Re-initiate treatment only upon physician approval. 2022 active Primary malignant neoplasm of prostate (disorder) 04/18 trazodo ne hydroch loride 150 MG Oral Tablet orally 1.0 tablet every day at bedtime 2022 active Insomnia, persistent 03/28 famotid ine 20 MG Oral Tablet orally 1.0 tablet every day 2022 active GERD 03/31 diphenh ydramin e hydroch loride 0.5 MG/ML Injecta ble Solutio n intraven ously 50.0 mg Re-initiate treatment only upon physician approval. 2022 active Primary malignant neoplasm of prostate (disorder) 03/31 1 ML epineph rine 1 MG/ML Injecti on intramus cularly 0.3 mg once Re-initiate treatment only upon physician approval. 2022 active Primary malignant neoplasm of prostate (disorder) 03/31 famotid ine 10 MG/ML Injecta ble Solutio n intraven ously 20.0 mg Re-initiate treatment only upon physician approval. 2022 active Primary malignant neoplasm of prostate (disorder) 03/31 methylp redniso lone 2000 MG Injecti on intraven ously 125.0 mg Re-initiate treatment only upon physician approval. 2022 active Primary malignant neoplasm of prostate (disorder) 03/31 hydroco rtisone 100 MG Injecti on intraven ously 100.0 mg Re-initiate treatment only upon physician approval. 2022 active Primary malignant neoplasm of prostate (disorder) 03/31 methylp redniso lone 2000 MG Injecti on intraven ously 125.0 mg Re-initiate treatment only upon physician approval. 2021 active Primary malignant neoplasm of prostate (disorder) 03/31 famotid ine 10 MG/ML Injecta ble Solutio n intraven ously 20.0 mg Re-initiate treatment only upon physician approval. 2021 active Primary malignant neoplasm of prostate (disorder) 03/31 diphenh ydramin e hydroch loride 0.5 MG/ML Injecta ble Solutio n intraven ously 50.0 mg Re-initiate treatment only upon physician approval. 2021 active Primary malignant neoplasm of prostate (disorder) 10/24 trazodo ne hydroch loride 150 MG Oral Tablet orally 1.0 tablet every day at bedtime 2021 active Insomnia, persistent 10/24 apaluta mide 60 MG Oral Tablet orally 120.0 mg daily 2021 active Primary malignant neoplasm of prostate (disorder) 03/31 hydroco rtisone 100 MG Injecti on intraven ously 100.0 mg Re-initiate treatment only upon physician approval. 2021 active Primary malignant neoplasm of prostate (disorder) 03/31 1 ML epineph rine 1 MG/ML Injecti on intramus cularly 0.3 mg once Re-initiate treatment only upon physician approval. 2021 active Primary malignant neoplasm of prostate (disorder) 09/26 trazodo ne hydroch loride 150 MG Oral Tablet orally 1.0 tablet every day at bedtime 2021 active Primary malignant neoplasm of prostate (disorder) 09/12 trazodo ne hydroch loride 150 MG Oral Tablet orally 1.0 tablet every day at bedtime 2021 active Primary malignant neoplasm of prostate (disorder) 03/31 hydroco rtisone 100 MG Injecti on intraven ously 100.0 mg Re-initiate treatment only upon physician approval. 2021 active Primary malignant neoplasm of prostate (disorder) 03/31 famotid ine 10 MG/ML Injecta ble Solutio n intraven ously 20.0 mg Re-initiate treatment only upon physician approval. 2021 active Primary malignant neoplasm of prostate (disorder) 03/31 diphenh ydramin e hydroch loride 0.5 MG/ML Injecta ble Solutio n intraven ously 50.0 mg Re-initiate treatment only upon physician approval. 2021 active Primary malignant neoplasm of prostate (disorder) 03/31 methylp redniso lone 2000 MG Injecti on intraven ously 125.0 mg Re-initiate treatment only upon physician approval. 2021 active Primary malignant neoplasm of prostate (disorder) 03/31 1 ML epineph rine 1 MG/ML Injecti on intramus cularly 0.3 mg once Re-initiate treatment only upon physician approval. 2021 active Primary malignant neoplasm of prostate (disorder) 07/18 apaluta mide 60 MG Oral Tablet orally 120.0 mg daily 2021 active Primary malignant neoplasm of prostate (disorder) 06/26 trazodo ne hydroch loride 150 MG Oral Tablet orally 1.0 tablet every day at bedtime 2021 active Primary malignant neoplasm of prostate (disorder) 08/02 diphenh ydramin e hydroch loride 0.5 MG/ML Injecta ble Solutio n intraven ously 50.0 mg Re-initiate treatment only upon physician approval. 2021 active Primary malignant neoplasm of prostate (disorder) 08/02 hydroco rtisone 100 MG Injecti on intraven ously 100.0 mg Re-initiate treatment only upon physician approval. 2021 active Primary malignant neoplasm of prostate (disorder) 08/02 methylp redniso lone 2000 MG Injecti on intraven ously 125.0 mg Re-initiate treatment only upon physician approval. 2021 active Primary malignant neoplasm of prostate (disorder) 08/02 famotid ine 10 MG/ML Injecta ble Solutio n intraven ously 20.0 mg Re-initiate treatment only upon physician approval. 2021 active Primary malignant neoplasm of prostate (disorder) 08/02 1 ML epineph rine 1 MG/ML Injecti on intramus cularly 0.3 mg once Re-initiate treatment only upon physician approval. 2021 active Primary malignant neoplasm of prostate (disorder) 03/27 trazodo ne hydroch loride 150 MG Oral Tablet orally 1.0 tablet every day at bedtime 2021 active Primary malignant neoplasm of prostate (disorder) 03/08 trazodo ne hydroch loride 100 MG Oral Tablet orally 1.0 tablet every day at bedtime 2021 active Primary malignant neoplasm of prostate (disorder) 08/02 1 ML epineph rine 1 MG/ML Injecti on intramus cularly 0.3 mg once Re-initiate treatment only upon physician approval. 2021 active Primary malignant neoplasm of prostate (disorder) 08/02 methylp redniso lone 2000 MG Injecti on intraven ously 125.0 mg Re-initiate treatment only upon physician approval. 2021 active Primary malignant neoplasm of prostate (disorder) 08/02 hydroco rtisone 100 MG Injecti on intraven ously 100.0 mg Re-initiate treatment only upon physician approval. 2021 active Primary malignant neoplasm of prostate (disorder) 08/02 diphenh ydramin e hydroch loride 0.5 MG/ML Injecta ble Solutio n intraven ously 50.0 mg Re-initiate treatment only upon physician approval. 2021 active Primary malignant neoplasm of prostate (disorder) 08/02 famotid ine 10 MG/ML Injecta ble Solutio n intraven ously 20.0 mg Re-initiate treatment only upon physician approval. 2021 active Primary malignant neoplasm of prostate (disorder) 01/06 trazodo ne hydroch loride 150 MG Oral Tablet orally 1.0 tablet every day at bedtime 2021 active Insomnia, persistent 12/07 apaluta mide 60 MG Oral Tablet orally 120.0 mg daily 2021 active Primary malignant neoplasm of prostate (disorder) 12/06 apaluta mide 60 MG Oral Tablet orally 120.0 mg daily 2021 active Primary malignant neoplasm of prostate (disorder) 12/06 trazodo ne hydroch loride 100 MG Oral Tablet orally 1.0 tablet every day at bedtime 2021 active Primary malignant neoplasm of prostate (disorder) 08/02 diphenh ydramin e hydroch loride 0.5 MG/ML Injecta ble Solutio n intraven ously 50.0 mg Re-initiate treatment only upon physician approval. 2020 active Primary malignant neoplasm of prostate (disorder) 08/02 1 ML epineph rine 1 MG/ML Injecti on intramus cularly 0.3 mg once Re-initiate treatment only upon physician approval. 2020 active Primary malignant neoplasm of prostate (disorder) 08/02 methylp redniso lone 2000 MG Injecti on intraven ously 125.0 mg Re-initiate treatment only upon physician approval. 2020 active Primary malignant neoplasm of prostate (disorder) 08/02 hydroco rtisone 100 MG Injecti on intraven ously 100.0 mg Re-initiate treatment only upon physician approval. 2020 active Primary malignant neoplasm of prostate (disorder) 08/02 famotid ine 10 MG/ML Injecta ble Solutio n intraven ously 20.0 mg Re-initiate treatment only upon physician approval. 2020 active Primary malignant neoplasm of prostate (disorder) 08/02 hydroco rtisone 100 MG Injecti on intraven ously 100.0 mg Re-initiate treatment only upon physician approval. 2020 active Primary malignant neoplasm of prostate (disorder) 08/02 1 ML epineph rine 1 MG/ML Injecti on intramus cularly 0.3 mg once Re-initiate treatment only upon physician approval. 2020 active Primary malignant neoplasm of prostate (disorder) 04/22 famotid ine 10 MG/ML Injecta ble Solutio n intraven ously 20.0 mg Re-initiate treatment only upon physician approval. 2020 active Primary malignant neoplasm of prostate (disorder) 08/02 diphenh ydramin e hydroch loride 0.5 MG/ML Injecta ble Solutio n intraven ously 50.0 mg Re-initiate treatment only upon physician approval. 2020 active Primary malignant neoplasm of prostate (disorder) 04/22 diphenh ydramin e hydroch loride 0.5 MG/ML Injecta ble Solutio n intraven ously 50.0 mg Re-initiate treatment only upon physician approval. 2020 active Primary malignant neoplasm of prostate (disorder) 08/02 methylp redniso lone 2000 MG Injecti on intraven ously 125.0 mg Re-initiate treatment only upon physician approval. 2020 active Primary malignant neoplasm of prostate (disorder) 08/02 0.375 ML leuprol narinder acetate 60 MG/ML Prefill ed Syringe subcutan eously 22.5 mg once 2020 active Primary malignant neoplasm of prostate (disorder) 04/22 methylp redniso lone 2000 MG Injecti on intraven ously 125.0 mg Re-initiate treatment only upon physician approval. 2020 active Primary malignant neoplasm of prostate (disorder) 08/02 famotid ine 10 MG/ML Injecta ble Solutio n intraven ously 20.0 mg Re-initiate treatment only upon physician approval. 2020 active Primary malignant neoplasm of prostate (disorder) 04/22 hydroco rtisone 100 MG Injecti on intraven ously 100.0 mg Re-initiate treatment only upon physician approval. 2020 active Primary malignant neoplasm of prostate (disorder) 08/02 apaluta mide 60 MG Oral Tablet orally 240.0 mg daily 2020 active Primary malignant neoplasm of prostate (disorder) 04/22 1 ML epineph rine 1 MG/ML Injecti on intramus cularly 0.3 mg once Re-initiate treatment only upon physician approval. 2020 active Primary malignant neoplasm of prostate (disorder) 04/22 hydroco rtisone 100 MG Injecti on intraven ously 100.0 mg Re-initiate treatment only upon physician approval. 2020 active Primary malignant neoplasm of prostate (disorder) 04/22 methylp redniso lone 2000 MG Injecti on intraven ously 125.0 mg Re-initiate treatment only upon physician approval. 2020 active Primary malignant neoplasm of prostate (disorder) 04/22 diphenh ydramin e hydroch loride 0.5 MG/ML Injecta ble Solutio n intraven ously 50.0 mg Re-initiate treatment only upon physician approval. 2020 active Primary malignant neoplasm of prostate (disorder) 04/22 famotid ine 10 MG/ML Injecta ble Solutio n intraven ously 20.0 mg Re-initiate treatment only upon physician approval. 2020 active Primary malignant neoplasm of prostate (disorder) 04/22 1 ML epineph rine 1 MG/ML Injecti on intramus cularly 0.3 mg once Re-initiate treatment only upon physician approval. 2020 active Primary malignant neoplasm of prostate (disorder) Problems Diagnosis Status Date of Diagnosis Resolution [...] Pain Scale 0.00 04/28/2021 Height 66.00 06/02/2021 Weight 154.80 06/02/2021 Pain Scale 0.00 06/02/2021 Intravascular Systolic 142 06/02/2021 Intravascular Diastolic 70 06/02/2021 Heart Beat 68.00 06/02/2021 Body Temperature 97.80 06/02/2021 Oxygen Saturation 98.00 06/02/2021 BSA 1.79 06/02/2021 Height 66.00 06/02/2021 BMI 24.99 06/02/2021 Respiratory Rate 18.00 08/02/2021 BSA 1.81 08/02/2021 BMI 25.66 08/02/2021 Height 66.00 08/02/2021 Pain Scale 0.00 08/02/2021 Respiratory Rate 16.00 08/02/2021 Intravascular Systolic 182 08/02/2021 Intravascular Diastolic 78 08/02/2021 Oxygen Saturation 97.00 08/02/2021 Heart Beat 61.00 08/02/2021 Weight 159.00 08/02/2021 Body Temperature 97.80 09/02/2021 Intravascular Systolic 160 09/02/2021 Intravascular Diastolic 89 09/02/2021 BMI 25.47 09/02/2021 Height 66.00 09/02/2021 Weight 157.80 09/02/2021 Pain Scale 0.00 09/02/2021 Oxygen Saturation 97.00 09/02/2021 Respiratory Rate 12.00 09/02/2021 Heart Beat 74.00 09/02/2021 Body Temperature 97.40 09/02/2021 BSA 1.81 09/30/2021 Intravascular Systolic 162 09/30/2021 Intravascular Diastolic 79 09/30/2021 BSA 1.82 09/30/2021 BMI 25.99 09/30/2021 Height 66.00 09/30/2021 Weight 161.00 09/30/2021 Pain Scale 3.00 09/30/2021 Oxygen Saturation 97.00 09/30/2021 Respiratory Rate 18.00 09/30/2021 Heart Beat 72.00 09/30/2021 Body Temperature 97.30 09/30/2021 Intravascular Systolic 183 09/30/2021 Intravascular Diastolic 83 12/06/2021 Height 66.00 12/06/2021 Weight 173.00 12/06/2021 Pain Scale 4.00 12/06/2021 Intravascular Systolic 160 12/06/2021 Intravascular Diastolic 70 12/06/2021 BMI 27.92 12/06/2021 Heart Beat 58.00 12/06/2021 Body Temperature 98.00 12/06/2021 Oxygen Saturation 98.00 12/06/2021 BSA 1.88 12/06/2021 Respiratory Rate 18.00 01/06/2022 Oxygen Saturation 97.00 01/06/2022 Body Temperature 98.00 01/06/2022 Heart Beat 67.00 01/06/2022 Respiratory Rate 16.00 01/06/2022 Intravascular Systolic 149 01/06/2022 Intravascular Diastolic 78 01/06/2022 Pain Scale 0.00 01/06/2022 Weight 166.90 01/06/2022 BMI 26.94 01/06/2022 Height 66.00 01/06/2022 BSA 1.85 02/07/2022 BMI 26.41 02/07/2022 BSA 1.84 02/07/2022 Height 66.00 02/07/2022 Weight 163.60 02/07/2022 Pain Scale 8.00 02/07/2022 Intravascular Systolic 148 02/07/2022 Intravascular Diastolic 74 02/07/2022 Respiratory Rate 16.00 02/07/2022 Heart Beat 90.00 02/07/2022 Body Temperature 96.20 02/07/2022 Oxygen Saturation 96.00 03/31/2022 BSA 1.79 03/31/2022 BMI 24.86 03/31/2022 Height 66.00 03/31/2022 Weight 154.00 03/31/2022 Body Temperature 98.70 03/31/2022 Intravascular Systolic 136 03/31/2022 Intravascular Diastolic 72 03/31/2022 Oxygen Saturation 98.00 03/31/2022 Respiratory Rate 18.00 03/31/2022 Heart Beat 68.00 03/31/2022 Pain Scale 4.00 05/02/2022 BMI 24.37 05/02/2022 Height 66.00 05/02/2022 Weight 151.00 05/02/2022 Pain Scale 5.00 05/02/2022 Intravascular Systolic 140 05/02/2022 Intravascular Diastolic 71 05/02/2022 Respiratory Rate 14.00 05/02/2022 Heart Beat 72.00 05/02/2022 Body Temperature 98.60 05/02/2022 Oxygen Saturation 98.00 05/02/2022 BSA 1.77 07/25/2022 Oxygen Saturation 97.00 07/25/2022 Body Temperature 98.10 07/25/2022 Heart Beat 82.00 07/25/2022 Respiratory Rate 16.00 07/25/2022 BSA 1.75 07/25/2022 Pain Scale 0.00 07/25/2022 Weight 147.00 07/25/2022 Height 66.00 07/25/2022 BMI 23.73 07/25/2022 Intravascular Systolic 146 07/25/2022 Intravascular Diastolic 78 10/24/2022 Intravascular Systolic 138 10/24/2022 Intravascular Diastolic 78 10/24/2022 BMI 22.95 10/24/2022 Pain Scale 0.00 10/24/2022 Weight 142.20 10/24/2022 Height 66.00 10/24/2022 BSA 1.73 10/24/2022 Oxygen Saturation 98.00 10/24/2022 Body Temperature 98.90 10/24/2022 Heart Beat 53.00 10/24/2022 Respiratory Rate 16.00 01/18/2023 Oxygen Saturation 98.00 01/18/2023 Body Temperature 96.40 01/18/2023 Heart Beat 65.00 01/18/2023 Respiratory Rate 16.00 01/18/2023 BSA 1.78 01/18/2023 Pain Scale 0.00 01/18/2023 Weight 151.40 01/18/2023 Height 66.00 01/18/2023 BMI 24.44 01/18/2023 Intravascular Systolic 154 01/18/2023 Intravascular Diastolic 70 05/04/2023 Body Temperature 97.20 05/04/2023 Heart Beat 49.00 05/04/2023 Respiratory Rate 18.00 05/04/2023 Oxygen Saturation 99.00 05/04/2023 Intravascular Systolic 140 05/04/2023 Intravascular Diastolic 64 05/04/2023 Pain Scale 0.00 05/04/2023 Weight 149.20 05/04/2023 Height 66.00 05/04/2023 BMI 24.08 05/04/2023 BSA 1.77 08/03/2023 BMI 24.86 08/03/2023 Height 66.00 08/03/2023 Weight 154.00 08/03/2023 Pain Scale 0.00 08/03/2023 BSA 1.79 08/03/2023 Respiratory Rate 18.00 08/03/2023 Heart Beat 61.00 08/03/2023 Body Temperature 96.60 08/03/2023 Oxygen Saturation 100.00 08/03/2023 Intravascular Systolic 146 08/03/2023 Intravascular Diastolic 84 11/08/2023 BSA 1.79 11/08/2023 BMI 24.95 11/08/2023 Height 66.00 11/08/2023 Weight 154.60 11/08/2023 Pain Scale 0.00 11/08/2023 Intravascular Systolic 126 11/08/2023 Intravascular Diastolic 78 11/08/2023 Oxygen Saturation 100.00 11/08/2023 Respiratory Rate 14.00 11/08/2023 Body Temperature 97.00 11/08/2023 Heart Beat 64.00 02/01/2024 Respiratory Rate 16.00 02/01/2024 Heart Beat 49.00 02/01/2024 Body Temperature 95.50 02/01/2024 Oxygen Saturation 100.00 02/01/2024 BSA 1.82 02/01/2024 Pain Scale 7.00 02/01/2024 Weight 160.20 02/01/2024 Height 66.00 02/01/2024 BMI 25.86 02/01/2024 Intravascular Systolic 144 02/01/2024 Intravascular Diastolic 80 05/20/2024 Heart Beat 61.00 05/20/2024 Body Temperature 96.90 05/20/2024 Height 66.00 05/20/2024 Intravascular Systolic 136 05/20/2024 Intravascular Diastolic 80 05/20/2024 Respiratory Rate 16.00 05/20/2024 BSA 1.79 05/20/2024 BMI 24.99 05/20/2024 Weight 154.80 05/20/2024 Pain Scale 3.00 05/20/2024 Oxygen Saturation 99.00 08/12/2024 Oxygen Saturation 92.00 08/12/2024 Body Temperature 96.20 08/12/2024 Heart Beat 66.00 08/12/2024 Respiratory Rate 20.00 08/12/2024 BSA 1.82 08/12/2024 Height 66.00 08/12/2024 [...]
--- NOTE | 2025-08-20 16:24 | CRLHL7_ITS ---
For Patients: As a result of the Century Cures Act, medical imaging exams and procedure reports are released immediately into your electronic medical record. You may view this report before your referring provider. If you have questions, please contact your health care provider. Indication: Suspicion of aspiration Comparison: Single view chest with two views ribs February 13, 2022 Technique: Single AP view chest Findings: There are extensive chronic interstitial changes again seen. Somewhat increased interstitial and airspace opacities within the lgfg-xevqmxa-cxdi-right lung bases. No pneumothorax or pleural effusion. The cardiomediastinal silhouette is within normal limits. The bony thorax is grossly intact. Impression: Somewhat increased interstitial opacities from previous exam likely representing mild pulmonary edema with basilar airspace disease commensurate with developing infiltrates. Dictated by Joseph Dominguez MD @ 08/20/2025 5:00:32 PM (Electronically Signed)
--- NOTE | 2025-08-20 16:26 | ED.SYNCOPE ---
HPI - Syncope General Chief Complaint: Syncope/Fainted Stated Complaint: Weakness Time Seen by Provider: 08/20/25 16:10 History of Present Illness HPI narrative: This 84-year-old male comes in by ambulance because of a syncopal event that occurred prior to arrival. He was discharged from a rehab facility and attended a doctor's appointment. As he was exiting in a wheelchair and attempting to transfer he had a brief loss of consciousness which included emesis. There is suspicion that he may have aspirated. He is not coughing currently. He arrives here with a systolic blood pressure of 90. Ambulance established an IV and he has a L of normal saline infusing currently. He does not have any complaints at this time. He is very hard of hearing and therefore a poor ability to communicate. His daughter is with him who states that he does have prostate cancer and has had anemia in the past. She mentioned that his hemoglobin was last checked at 8.6. He was instructed at his appointment today to take a half of a pill that affects his blood pressure. Looking at his list that we have currently the only medicine affecting blood pressure is tamsulosin. Related Data Home Medications ?Medication ?Instructions ?Recorded ?Confirmed albuterol sulfate 90 mcg/actuation inhalation 09/19/23 10/17/23 aerosol inhaler apalutamide 60 mg tablet (Erleada) mg PO 09/19/23 10/17/23 atorvastatin 20 mg tablet 20 mg PO DAILY 09/19/23 10/17/23 famotidine 20 mg tablet 20 mg PO DAILY 09/19/23 10/17/23 fluticasone propionate 50 1 spray intranasal DAILY 09/19/23 10/17/23 mcg/actuation nasal spray,suspension mometasone-formoterol HFA 100 2 puff inhalation BID 09/19/23 10/17/23 mcg-5 mcg/actuation aerosol inhaler (Dulera) tamsulosin 0.4 mg capsule 0.4 mg PO DAILY 09/19/23 10/17/23 tiotropium bromide 18 mcg capsule 1 cap inhalation DAILY 09/19/23 10/17/23 with inhalation device (Spiriva with HandiHaler) trazodone 150 mg tablet 150 mg PO QPM 09/19/23 10/17/23 Allergies Allergy/AdvReac Type Severity Reaction Status Date / Time bupropion Allergy Unknown Verified 05/20/24 14:56 Penicillins Allergy Unknown Verified 05/20/24 14:56 Review of Systems Status of ROS: Reports: unobtainable due to medical condition Narrative: Review of systems not obtained due to very hard of hearing and no hearing aids in place. [facility] PFS Medical History GERD (gastroesophageal reflux disease) ?K21.9 - Gastro-esophageal reflux disease without esophagitis (ICD-10) COPD (chronic obstructive pulmonary disease) ?J44.9 - Chronic obstructive pulmonary disease, unspecified (ICD-10) Surgical History Hx of tonsillectomy ?Z90.89 - Acquired absence of other organs (ICD-10) S/P arthroscopy of right shoulder (11/02/97) ?Z98.890 - Other specified postprocedural states (ICD-10) S/P arthroscopy of left shoulder (12/26/01) ?Z98.890 - Other specified postprocedural states (ICD-10) Social History Smoking Status: Former smoker What tobacco products do you use: cigarettes Smoking quit date/years: >15 years ago Do you use any of these nicotine containing products: None Second hand tobacco smoke exposure: Yes (around [place] at work) Non-prescribed substance use: denies use service: No Exam Narrative: Exam Narrative: Constitutional: Well-developed, well-nourished, no acute distress. HEENT: Normocephalic, atraumatic. Neck: Normal range of motion. Nontender. Supple. Heart: Regular. No murmurs. Normal rate. Intact distal pulses. Lungs: Clear to auscultation. No chest discomfort. No wheezes, rhonchi, or rales. Abdomen: Normal bowel sounds. Nontender. No rebound tenderness. Genitalia: Deferred. Back: No midline tenderness. Normal range of motion. Extremities: Normal range of motion. No injury. No pedal edema. Skin: Intact. No rash. Warm. No erythema or pallor. Neurologic: No altered sensation. No weakness. Alert and oriented. Psychiatric: No suicidality. No anxiety or depression. No insomnia. Nursing notes and vitals signs are reviewed. Const: Vital Signs, click to edit/add: Vital Signs - 24 hr 08/20/25 16:05 08/20/25 16:34 08/20/25 17:29 Temperature 97.5 F L 97.1 F L Pulse Rate [Pulse Oximeter] 72 65 65 Respiratory Rate 20 20 18 Blood Pressure [Le ft Upper Arm] 90/53 L 111/54 L 124/70 Pulse Oximetry 96 95 98 Oxygen Delivery Me thod Nasal Cannula Nasal Cannula Room Air Oxygen Flow Rate 1.5 08/20/25 19:35 Temperature 98.0 F Pulse Rate [Pulse Oximeter] 98 Respiratory Rate 18 Blood Pressure [Le ft Upper Arm] 124/68 Pulse Oximetry 90 Oxygen Delivery Me thod Room Air Oxygen Flow Rate Course Vital Signs Vital signs: Initial Vital Signs Temperature 97.5 F L 08/20/25 16:05 Temperature Source Temporal Artery Scan 08/20/25 16:05 Pulse Rate 72 08/20/25 16:05 Pulse Rhythm Irregular 08/20/25 16:05 Respiratory Rate 20 08/20/25 16:05 Blood Pressure 90/53 L 08/20/25 16:05 Blood Pressure Mean 65 L 08/20/25 16:05 Blood Pressure Position Supine 08/20/25 16:05 Pulse Oximetry 96 08/20/25 16:05 Oxygen Delivery Method Nasal Cannula 08/20/25 16:05 Vital Signs Temperature 97.5 F L 08/20/25 16:05 Pulse Rate 72 08/20/25 16:05 Respiratory Rate 20 08/20/25 16:05 Blood Pressure 90/53 L 08/20/25 16:05 Pulse Oximetry 96 08/20/25 16:05 Oxygen Delivery Method Nasal Cannula 08/20/25 16:05 Temperature 98.0 F 08/20/25 19:35 Pulse Rate 98 08/20/25 19:35 Respiratory Rate 18 08/20/25 19:35 Blood Pressure 124/68 08/20/25 19:35 Pulse Oximetry 90 08/20/25 19:35 Oxygen Delivery Method Room Air 08/20/25 19:35 Oxygen Flow Rate 1.5 08/20/25 16:34 Medications Administered Medications: Generic Name Dose Route Start Last Admin Trade Name Freq PRN Reason Stop Dose Admin Ceftriaxone Sodium 1 gm/ 100 mls @ 200 mls/hr 08/20/25 19:05 08/20/25 19:31 Sodium Chloride IVPB 08/20/25 19:06 200 mls/hr ONCE ONE Administration Discontinued Medications Generic Name Dose Route Start Last Admin Trade Name Shelbie PRN Reason Stop Dose Admin Sodium Chloride 500 mls @ 500 mls/hr 08/20/25 16:23 08/20/25 18:28 0.9 % Sodium Chloride 500 Ml IV 08/20/25 17:22 Infused .Q1H ONE Infusion MDM - Syncope Lab Data Labs: Lab Results 08/20/25 08/20/25 08/20/25 Range/Units 17:17 17:24 19:03 WBC 6.93 (4.50-11.00) K/uL RBC 3.58 L (4.30-5.90) m/uL Hgb 9.2 L (13.5-17.5) gm/dL Hct 30.5 L (37.0-53.0) % MCV 85 (80-100) fL MCH 26 (26-34) pg MCHC 30 L (32-36) gm/dL RDW Coeff of Neris 15.7 H (11.5-15.5) % Plt Count 280 (140-440) K/uL Neut % (Auto) 73.3 H (42.0-72.0) % Lymph % (Auto) 11.4 L (20-44) % Winkler % (Auto) 9.4 (0.0-11.0) % Eos % (Auto) 5.3 (0.0-7.0) % Baso % (Auto) 0.3 (0.0-3.0) % Neut # (Auto) 5.10 (1.7-7.0) K/uL Lymph # (Auto) 0.80 L (0.90-2.90) K/uL Winkler # (Auto) 0.70 (0.00-0.90) K/UL Eos # (Auto) 0.37 (0.00-0.50) K/uL Baso # (Auto) 0.02 (0.00-0.30) K/uL Abs Immat Gran (auto) 0.02 (0.00-0.30) K/uL Imm/Tot Granulo (auto) 0.3 % D-Dimer Quant (PE/DVT) 1.87 H (0.00-0.50) ug/ml Sodium 138 (135-149) mmol/L Potassium 3.9 (3.6-5.1) mmol/L Chloride 109 (96-114) mmol/L Carbon Dioxide 23 (20-32) mmol/L Anion Gap 6 L (7-15) mEq/L BUN 22 (7-30) mg/dL Creatinine 0.9 (0.5-1.5) mg/dL Estimated Creat Clear 51.03 Estimated GFR 83 ml/min Glucose 119 H (60-115) mg/dL Lactate 1.2 (0.5-1.9) mmol/L Calcium 9.2 (8.4-10.6) mg/dL SARS-CoV-2 (PCR) Negative SARS-CoV-2 (Negative) Influenza Type A (PCR) Negative PCR FLU A (Negative) Influenza Type B (PCR) Negative PCR FLU B (Negative) RSV (PCR) Negative PCR RSV (Negative) Lab Acknowledgement Test Added Imaging Data Chest x-ray: Radiologist's impression: Somewhat increased interstitial opacities from previous exam likely representing mild pulmonary edema with basilar airspace disease commensurate with developing infiltrates. CT scan - head: Radiologist's impression: 1. No acute intracranial abnormality. 2. Similar moderate diffuse parenchymal volume loss and chronic small vessel ischemic changes. 3. 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 ECG Data Attestation: I personally reviewed and interpreted this ECG as follows: Interpretation: Sinus rhythm with marked sinus arrhythmia, rate 67 beats per minute. There are no specific ST or T-wave abnormalities. Discharge Plan Discharge Clinical Impression: Syncope, Pneumonia Patient Disposition: Admitted As Observation Condition: Unchanged
[2025-08-20] MEDS: 0.9 % SODIUM CHLORIDE 500 ML 500 ML IV (16:46)
--- OUTSIDE RECORDS SUMMARY | 2025-08-20 16:50 | XMS_ITS | CCD ---
Author Name Interface, [employer]P[facility] l[facility] Address [address] [address] Organization [facility] Address [address] [address] Care Team Providers Care Resin Mixer Name Role Phone Abdulkadir Campo Unavailable Unavailable [...] # (ANC) K/uL 1.6 6.6 2.8 FINAL [facility] [address] [place] [address] [address] [facility] [id number] 03/27 CBC w/ auto diff IG % % 0.0 0.5 0.0 [facility] , [address] [place] [address] [address] [facility] [id number] 03/27 CBC w/ auto diff MO # K/uL 0.2 1.3 0.5 [facility] , [address] [place] [address] [address] [facility] [id number] 03/27 CBC w/ auto diff MCV fL 80.0 104.0 95.0 FINAL [facility] [place] [facility] [place] [facility] , [address] [place] [id number] 0 03/27 CBC w/ auto diff IG # K/uL 0.0 0.03 0.00 FINAL Abdulkadir Sandoval [place] [facility] [place] [facility] , [address] [place] [id number] 0 03/27 CBC w/ auto diff MO % % 6.0 15.0 11.3 FINAL Abdulkadir Sandoval [place] [facility] [place] [facility] , [address] [place] [id number] 0 03/27 CBC w/ auto diff EO # K/uL 0.0 0.6 0.1 FINAL Abdulkadir Jaime [place] [facility] [place] [facility] , [address] [place] [id number] 0 03/27 CBC w/ auto diff EO % % 0.0 7.0 1.5 FINAL Abdulkadir Jaime [place] [facility] [place] [facility] , [address] [place] [id number] 0 03/27 CBC w/ auto diff MPV fL 9.5 13.4 10.1 FINAL Abdulkadir Sandoval [place] [facility] [place] [facility] , [address] [place] [id number] 0 03/27 CBC w/ auto diff RBC M/uL 4.2 5.6 4.19 Low FINAL Abdulkadir Sandoval [place] [facility] [place] [facility] , [address] [place] [id number] 0 03/27 CBC w/ auto diff WBC K/uL 3.0 8.9 4.6 FINAL Abdulkadir Sandoval [place] [facility] [place] [facility] , [address] [place] [id number] 0 03/27 CBC w/ auto diff PLT K/uL 113.0 364.0 178 FINAL Abdulkadir Sandoval [place] [facility] [place] [facility] , [address] [place] [id number] 0 03/27 CBC w/ auto diff BA % % 0.0 2.0 0.7 FINAL Abdulkadir Sandoval [place] [facility] [place] [facility] , [address] [place] [id number] 0 03/27 CBC w/ auto diff BA # K/uL 0.0 0.2 0.0 FINAL Abdulkadir Sandoval [place] [facility] [place] [facility] , [address] [place] [id number] 0 03/27 CBC w/ auto diff HGB g/dL 12.5 16.6 13.0 FINAL Abdulkadir Jaime [place] [facility] [place] [facility] , [address] [place] [id number] 0 03/27 CBC w/ auto diff RDW % 11.3 15.6 13.30 FINAL Abdulkadir Jaime [place] [facility] [place] [facility] , [address] [place] [id number] 0 03/27 CBC w/ auto diff LY % % 14.0 41.0 25.4 FINAL Abdulkadir Sandoval [place] [facility] [place] [facility] , [address] [place] [id number] 0 03/27 CBC w/ auto diff LY # K/uL 0.4 3.6 1.2 FINAL Abdulkadir Sandoval [place] [facility] [place] [facility] , [address] [place] [id number] 0 03/27 CBC w/ auto diff MCH pg 26.0 35.0 31.0 FINAL Abdulkadir Jaime [place] [facility] [place] [facility] , [address] [place] [id number] 0 03/27 CBC w/ auto diff MCHC g/dL 30.0 35.0 32.7 FINAL Abdulkadir Jaime [place] [facility] [place] [facility] , [address] [place] [id number] 0 03/27 CBC w/ auto diff NRBC % #/100W BC 0.0 0.2 0.0 FINAL Abdulkadir Jaime [place] [facility] [place] [facility] , [address] [place] [id number] 0 03/27 CBC w/ auto diff HCT % 39.0 49.0 39.8 FINAL Abdulkadir Jaime [place] [facility] [place] [facility] , [address] [place] [id number] 0 03/27 CBC w/ auto diff [place] % % 43.0 74.0 61.1 FINAL Abdulkadir Jaime [place] [facility] , [address] [place] [id number] 0 03/27 CMP Alkal ine phosp hatas e U/L 36.0 125.0 111 FINAL Abdulkadir Sandoval * [place] [facility] [place] [facility] , [address] [facility] [id number] 0 03/27 CMP ALT/S GPT U/L 0.0 49.0 20 FINAL Abdulkadir Sandoval * [place] [facility] [place] [facility] , [address] [facility] [id number] 0 03/27 CMP Calci um mg/dL 8.4 10.2 9.4 FINAL Abdulkadir Sandoval * [facility] , [address] [facility] [id number] 0 03/27 CMP GFR estim ate ml/min /1.73m ^2 73.1 GFR is calculate d using the CKD-EPI equation. FINAL Abdulkadir Sandoval * [facility] , [address] [facility] [id number] 0 03/27 CMP CO2 mmol/L 22.0 30.0 [...] hour stability window. FINAL Abdulkadir Sandoval * [facility] , [address] [facility] [id number] 0 03/27 CMP Gluco se mg/dL 74.0 100.0 81 FINAL Abdulkadir Sandoval * [facility] , [address] [id number] 0 03/27 CMP Chlor narinder mmol/L 96.0 107.0 101 FINAL Abdulkadir Sandoval * [facility] , [address] [facility] [id number] 0 03/27 CMP Total prote in g/dL 6.3 8.2 6.6 FINAL Abdulkadir Sandoval * [facility] , [address] [facility] [id number] 0 03/27 CMP BUN mg/dL 9.0 20.0 21.0 High FINAL Abdulkadir Sandoval * [facility] , [address] [facility] [id number] 0 03/27 CMP Creat inine mg/dL 0.66 1.25 1.00 FINAL Abdulkadir Sandoval * [facility] , [address] [id number] 0 03/27 CMP AST/S GOT U/L 17.0 59.0 40 FINAL Abdulkadir Sandoval * [facility] , [address] [id number] 0 03/27 CMP Album in g/dL 3.5 5.0 4.2 FINAL Abdulkadir Sandoval * [facility] , [address] [id number] 0 03/27 CMP Bilir ubin, total mg/dL 0.2 1.3 0.3 FINAL Abdulkadir Sandoval * [facility] , [address] [facility] [id number] 0 03/27 CMP Sodiu m mmol/L 137.0 145.0 139 FINAL Abdulkadir Sandoval * [facility] , [facility] [id number] 0 03/27 CMP Potas sium mmol/L 3.5 5.1 4.3 FINAL Abdulkadir Sandoval * [facility] , [address] [id number] 0 08/05 [facility] [place] lab See clinical biochemical geneticist d 03/27 PSA diagn ostic panel PSA ng/ml 0.0 3.9 0.33 Test performed at [facility] on a [employer] Immunoass ay Analyzer that uses an immunomet yuko immunoass ay technique . Patient testing should not be performed using multiple malik plaza due to analytica l variation seen between test methodunruly plaza. FINAL Abdulkadir Sandoval * [facility] , [facility] [facility] [id number] 0 03/27 Di tin panel Di tin ng/mL 17.9 464.0 27.20 FINAL Abdulkadir Sandoval * [facility] , [address] [facility] [id number] 0 Medications Date Name Route Dose Frequency [...] Oral 10 mg-325 mg PRN active 04/02 hydroco rtisone 100 MG Injecti on [...] times per week 2024 active Anemia 04/02 famotid ine 10 MG/ML Injecta ble [...] mg Re-initiate treatment only upon physician approval. 01/02/ 2025 01/02 /2025 on hold Primary malignant neoplasm of prostate [...] Name Instructions Status 11/20/2024 Physician Order RTC nurse for injection Labs pr ior to appt. Ordered 11/20/2024 Physician Order RTC MD Labs prior to appt. Ordered 04/03/2025 Physician Order RTC [...] Patient has been working for her own [employer] since he was 16 years old. 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 Patient lives alone. His daughter, Lucy, lives about 2 miles away from him. Patient has a son, who lives in [facility] Vital Signs Blood pressure: Not recorded [...] Patient has been working for her own [employer] since he was 16 years old. 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 He continues to work full-time. Patient lives alone. His daughter, Lucy, lives about 2 miles away from him. Patient has a son, who lives in [place] [facility] Vital Signs Blood pressure: 120/82, Pulse: [...] <0.06 Repeated 0.08 <0.06 PSA less t dtuton 0.05 ? Lab Results 11/17/2024 08/05/2024 05/16/2024 [...] Electronically signed by Abdulkadir GALLEGOS 11/20/2024 18:29 PATHOLOGY TECHNOLOGIST
--- OUTSIDE RECORDS SUMMARY | 2025-08-20 16:51 | XMS_ITS ---
Author Name Interface, U7Isflqip lity Address [address] [address] [facility] Address [address] [address] Allergies and Adverse Reactions Medication/Group Name Reaction [...] 15 MIN 08/07/2022 APPOINTMENT CHART CHECK 5 ND N 07/25/2022 APPOINTMENT INJECTION 15 MIN 07/25/2022 [...] 20 MIN 11/04/2021 APPOINTMENT CHART CHECK 5 ND N 11/01/2021 APPOINTMENT INJECTION 15 MIN 10/28/2021 [...] CHTCK - 158 CT A ND DEXA ED [facility] 08/18/2021 APPOINTMENT CHTCK - 44 REVIE W SCANS DONE AT [facility] 08/17/[address] - [address] AB/[facility] - [facility] CKIN: 12:45 08/17/2021 APPOINTMENT DEXA - 44 DEXA C T AB/[facility] - [facility] CKIN: 12:45 08/02/2021 APPOINTMENT RCINJ - [...] LABORDER CMP 10/24/2022 LABORDER PSA diagnostic p destniy 01/08/2023 LABORDER Bone scan, total body 01/08/2023 [...] 5.2 4.2 FINAL Abdulkadir Jaime Rajanot a [facility], [address] [id number] [phone] Phone: () - 06/02 CMP Alkal ine phosp hatas e U/L 46.0 116.0 270 High FINAL Abdulkadir Jaime Rajanot a On[facility], [address] [id number] 0 Phone: () - 06/02 CMP ALT/S GPT U/L 7.0 40.0 24 FINAL [place] [address] [id number] 0 Phone: () - 06/02 CMP AST/S GOT U/L 13.0 40.0 39 FINAL [place] [address] [id number] 0 Phone: () - 06/02 CMP BUN mg/dL 9.0 23.0 21 FINAL [place] [address] [id number] 0 Phone: () - 06/02 CMP Calci um mg/dL 8.7 10.4 9.5 FINAL [place] [address] [id number] 0 Phone: () - 06/02 CMP Chlor narinder mmol/L 96.0 114.0 111 FINAL [place] [address] [id number] 0 Phone: () - 06/02 CMP CO2 mmol/L 20.0 31.0 26 FINAL [place] [address] [id number] 0 Phone: () - 06/02 CMP Creat inine mg/dL 0.5 1.2 0.95 FINAL [place] [address] [id number] 0 Phone: () - 06/02 CMP GFR estim ate ml/min /1.73m ^2 73.9 GFR is calculate d using the CKD-EPI equation. FINAL [place] [address] [id number] 0 Phone: () - 06/02 CMP Gluco se mg/dL 73.0 126.0 77 FINAL [place] [address] [place] [id number] 0 Phone: () - 06/02 CMP Potas sium mmol/L 3.5 5.1 3.9 FINAL [facility], [address] [id number] 0 Phone: () - 06/02 CMP Sodiu m mmol/L 136.0 145.0 143 FINAL [facility] [address] [id number] 0 Phone: () - 06/02 CMP Bilir ubin, total mg/dL 0.3 1.2 0.4 FINAL [facility] [address] [id number] 0 Phone: () - 06/02 CMP Total prote in g/dL 5.7 8.2 6.9 FINAL [facility] [place] [address] [id number] 0 Phone: () - 06/02 PSA diagn ostic panel PSA ng/ml 0.0 4.0 8.40 High Test performed at [facility] on a Aldagen 2000 Immunoass ay Analyzer that uses an immunoenz ymometric sandwich assay for analysis. Patient testing should not be performed using multiple methodolo gies due to analytica l variation seen between test methodolo girandee. FINAL [facility] [place] [address] [id number] 0 Phone: () - 06/02 CBC w/ auto diff WBC K/uL 3.0 8.9 5.2 FINAL [facility] - [place], [address] [place] [phone] 0 Phone: () - 06/02 CBC w/ auto diff HGB g/dL 12.5 16.6 13.6 FINAL [facility] - [place], [address] [place] [phone] 0 Phone: () - 06/02 CBC w/ auto diff PLT K/uL 113.0 364.0 218 FINAL Abdulkadir Jaime Campbell a [facility] - [place], [address] [place] [id number] 0 Phone: () - 06/02 CBC w/ auto diff Cayetano # (ANC) K/uL 1.6 6.6 2.7 FINAL Abdulkadir Jaime Campbell a [facility] - [place], [address] [place] [id number] 0 Phone: () - 06/02 CBC w/ auto diff Cayet[place] % % 43.0 74.0 50.9 FINAL Abdulkadir Jaime Campbell a [facility] - [place], [address] [place] [id number] 0 Phone: () - 06/02 CBC w/ auto diff IG % % 0.0 0.5 0.2 FINAL [facility] - [place], [address] [place] [id number] 0 Phone: () - 06/02 CBC w/ auto diff IG # K/uL 0.0 0.03 0.01 FINAL Abd[facility]adirshell weinberg [facility] - [place], [address] [place] [id number] 0 Phone: () - 06/02 CBC w/ auto diff LY % % 14.0 41.0 31.9 FINAL Abdulkadirshell Campbell a [facility] - [place], [address] [place] [id number] 0 Phone: () - 06/02 CBC w/ auto diff MO % % 6.0 15.0 8.2 FINAL Abdulkadirshell Campbell a [facility] - [place], [address] [place] [id number] 0 Phone: () - 06/02 CBC w/ auto diff EO % % 0.0 7.0 8.2 High FINAL Abdulkadirshell Rajanot a [facility] - [place], [address] [place] [id number] 0 Phone: () - 06/02 CBC w/ auto diff BA % % 0.0 2.0 0.6 FINAL Abdulkadir Jaime Rajanot a [facility] - [place], [address] [place] [id number] 0 Phone: () - 06/02 CBC w/ auto diff LY # K/uL 0.4 3.6 1.7 FINAL Abdulkadir Jaime Rajanot a [facility] - [place], [address] [place] [id number] 0 Phone: () - 06/02 CBC w/ auto diff MO # K/uL 0.2 1.3 0.4 FINAL Abdulkadir Jaime Rajanot a [facility] - [place], [address] [place] [id number] 0 Phone: () - 06/02 CBC w/ auto diff EO # K/uL 0.0 0.6 0.4 FINAL Abdulkadir Jaime Rajanot a [facility] - [place], [address] [place] [id number] 0 Phone: () - 06/02 CBC w/ auto diff BA # K/uL 0.0 0.2 0.0 FINAL Abdulkadir Jaime Rajanot a [facility] - [place], [address] [place] [id number] 0 Phone: () - 06/02 CBC w/ auto diff NRBC % #/100W BC 0.0 0.2 0.0 FINAL Abdulkadir Jaime Rajanot a [facility] - [place], [address] [place] [id number] 0 Phone: () - 06/02 CBC w/ auto diff RBC M/uL 4.2 5.6 4.49 FINAL Abdulkadir Jaime Rajanot a [facility] - [place], [address] [place] [id number] 0 Phone: () - 06/02 CBC w/ auto diff HCT % 39.0 49.0 40.8 FINAL Abdulkadir Jaime Rajanot a [facility] - [place], [address] [place] [id number] 0 Phone: () - 06/02 CBC w/ auto diff MCV fL 80.0 104.0 90.9 FINAL Abdulkadir Jaime Rajanot a [facility] - [place], [address] [place] [id number] 0 Phone: () - 06/02 CBC w/ auto diff MCH pg 26.0 35.0 30.3 FINAL Abdulkadir Jaime Rajanot a [facility] - [place], [address] [place] [id number] 0 Phone: () - 06/02 CBC w/ auto diff MCHC g/dL 30.0 35.0 33.3 FINAL Abdulkadir Jaime Rajanot a [facility] - [place], [address] [place] [id number] 0 Phone: () - 06/02 CBC w/ auto diff MPV fL 9.5 13.4 10.5 FINAL Abdulkadir Jaime Rajanot a [facility] - [place], [address] [place] [id number] 0 Phone: () - 06/02 CBC w/ auto diff RDW % 11.3 15.6 13.90 FINAL Abdulkadir Jaime Rajanot a [facility] - [place], [address] [place] [id number] 0 Phone: () - 07/28 [facility] other lab 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 d 08/02 CBC w/ auto diff WBC K/uL 3.0 8.9 5.9 FINAL Abdulkadir Jaime Rajanot a [facility] - [place], [address] [place] [id number] 0 Phone: () - 08/02 CBC w/ auto diff HGB g/dL 12.5 16.6 13.1 FINAL Abdulkadir Jaime Rajanot a [facility] - [place], [address] [place] [id number] 0 Phone: () - 08/02 CBC w/ auto diff PLT K/uL 113.0 364.0 237 FINAL Abdulkadir Jaime Rajanot a [facility] - [place], [address] [place] [id number] 0 Phone: () - 08/02 CBC w/ auto diff Cayet[place] # (ANC) K/uL 1.6 6.6 2.9 FINAL Abdulkadir Jaime Rajanot a [facility] - [place], [address] [place] [id number] 0 Phone: () - 08/02 CBC w/ auto diff Cayet[place] % % 43.0 74.0 49.2 FINAL Abdulkadir Jaime Rajanot a [facility] - [place], [address] [place] [id number] 0 Phone: () - 08/02 CBC w/ auto diff IG % % 0.0 0.5 0.2 FINAL Abdulkadir Jaime Rajanot a [facility] - [place], [address] [place] [id number] 0 Phone: () - 08/02 CBC w/ auto diff IG # K/uL 0.0 0.03 0.01 FINAL Abdulkadirshell Rajanot a On[facility] - [place], [address] [place] [id number] 0 Phone: () - 08/02 CBC w/ auto diff LY % % 14.0 41.0 33.2 FINAL Abdulkadir Jaime Rajanot a [facility] - [place], [address] [place] [id number] 0 Phone: () - 08/02 CBC w/ auto diff MO % % 6.0 15.0 9.0 FINAL Abdulkadir Jaime Rajanot a [facility] - [place], [address] [place] [id number] 0 Phone: () - 08/02 CBC w/ auto diff EO % % 0.0 7.0 7.5 High FINAL Abdulkadir Jaime Rajanot a [facility] - [place], [address] [place] [id number] 0 Phone: () - 08/02 CBC w/ auto diff BA % % 0.0 2.0 0.9 FINAL Abdulkadir Jaime Rajanot a [facility] - [place], [address] [place] [id number] 0 Phone: () - 08/02 CBC w/ auto diff LY # K/uL 0.4 3.6 2.0 FINAL Abdulkadir Jaime Rajanot a [facility] - [place], [address] [place] [id number] 0 Phone: () - 08/02 CBC w/ auto diff MO # K/uL 0.2 1.3 0.5 FINAL Abdulkadir Jaime Rajanot a [facility] - [place], [address] [place] [id number] 0 Phone: () - 08/02 CBC w/ auto diff EO # K/uL 0.0 0.6 0.4 FINAL Abdulkadir Jaime Rajanot a [facility] - [place], [address] [place] [id number] 0 Phone: () - 08/02 CBC w/ auto diff BA # K/uL 0.0 0.2 0.1 FINAL Abdulkadir Jaime Rajanot a [facility] - [place], [address] [place] [id number] 0 Phone: () - 08/02 CBC w/ auto diff NRBC % #/100W BC 0.0 0.2 0.0 FINAL Abdulkadir Jaime Rajanot a [facility] - [place], [address] [place] [id number] 0 Phone: () - 08/02 CBC w/ auto diff RBC M/uL 4.2 5.6 4.28 FINAL Abdulkadir Jaime Rajanot a [facility] - [place], [address] [place] [id number] 0 Phone: () - 08/02 CBC w/ auto diff HCT % 39.0 49.0 39.1 FINAL Abdulkadir Jaime Rajanot a [facility] - [place], [address] [place] [id number] 0 Phone: () - 08/02 CBC w/ auto diff MCV fL 80.0 104.0 91.4 FINAL Abdulkadir Jaime Rajanot a [facility] - [place], [address] [place] [id number] 0 Phone: () - 08/02 CBC w/ auto diff MCH pg 26.0 35.0 30.6 FINAL Abdulkadir Jaime Rajanot a [facility] - [place], [address] [place] [id number] 0 Phone: () - 08/02 CBC w/ auto diff MCHC g/dL 30.0 35.0 33.5 FINAL Abdulkadirshell Campbell a [facility] - [place], [address] [place] [id number] 0 Phone: () - 08/02 CBC w/ auto diff MPV fL 9.5 13.4 10.1 FINAL Abdulkadirshell Campbell a [facility] - [place], [address] [place] [id number] 0 Phone: () - 08/02 CBC w/ auto diff RDW % 11.3 15.6 13.70 FINAL Abdulkadir Jaime Campbell a [facility] - [place], [address] [place] [id number] 0 Phone: () - 08/02 CMP Album in g/dL 3.2 5.2 4.2 FINAL Abdulkadir Jaime Satindereddie a Oncology - [place], [address] [place] [id number] 0 Phone: () - 08/02 CMP Alkal ine phosp hatas e U/L 46.0 116.0 131 High FINAL [facility] [address] [facility] [address] [id number] 0 Phone: () - 08/02 CMP ALT/S GPT U/L 7.0 40.0 22 FINAL [facility] [address] [facility] [address] [id number] 0 Phone: () - 08/02 CMP AST/S GOT U/L 13.0 40.0 31 FINAL [place] [address] [address] [facility] [address] [id number] 0 Phone: () - 08/02 CMP BUN mg/dL 9.0 23.0 20 FINAL [place] [address] [id number] 0 Phone: () - 08/02 CMP Calci um mg/dL 8.7 10.4 9.9 FINAL [place] [address] [id number] 0 Phone: () - 08/02 CMP Chlor narinder mmol/L 96.0 114.0 108 FINAL [place] [address] [id number] 0 Phone: () - 08/02 CMP CO2 [...] of the 96 hour stability window. FINAL [facility] [address] [id number] 0 Phone: () - 08/02 CMP Creat inine mg/dL 0.5 1.2 0.98 FINAL [place] [address] [address] [facility] [address] [id number] 0 Phone: () - 08/02 CMP GFR estim ate ml/min /1.73m ^2 71.1 GFR is calculate d using the CKD-EPI equation. FINAL [facility] N [facility] [address] [place] [address] [phone] 0 Phone: () - 08/02 CMP Gluco se mg/dL 73.0 126.0 83 FINAL [place] [address] [address] [facility] [address] [id number] 0 Phone: () - 08/02 CMP Potas sium mmol/L 3.5 5.1 4.2 FINAL [facility] [address] [facility] [address] [id number] 0 Phone: () - 08/02 CMP Sodiu m mmol/L 136.0 145.0 142 FINAL [place] [address] [id number] 0 Phone: () - 08/02 CMP Bilir ubin, total mg/dL 0.3 1.2 0.5 FINAL [facility] [address] [facility] [address] [id number] 0 Phone: () - 08/02 CMP Total prote in g/dL 5.7 8.2 7.0 FINAL [place] [address] [address] [facility] [address] [id number] 0 Phone: () - 08/02 PSA diagn ostic panel PSA ng/ml 0.0 4.0 1.10 Test performed at [facility] on a Ustream Immunoass ay Analyzer that uses an immunoenz ymometric sandwich assay for analysis. Patient testing should not be performed using multiple malik plaza due to analytica l variation seen between test malik plaza. FINAL [facility] N [facility] [address] [place] [address] [phone] 0 Phone: () - 09/02 CBC w/ auto diff WBC K/uL 3.0 8.9 5.0 FINAL [facility], [address] [place] [id number] 0 Phone: () - 09/02 CBC w/ auto diff HGB g/dL 12.5 16.6 13.1 FINAL Abdulkadir Jaime Rajanot a On[facility] - [place], [address] [place] [id number] 0 Phone: () - 09/02 CBC w/ auto diff PLT K/uL 113.0 364.0 209 FINAL Abdulkadir Jaime Rajanot a On[facility] - [place], [address] [place] [id number] 0 Phone: () - 09/02 CBC w/ auto diff Cayet[place] # (ANC) K/uL 1.6 6.6 2.6 FINAL Abdulkadir Jaime Rajanot a [facility] - [place], [address] [place] [id number] 0 Phone: () - 09/02 CBC w/ auto diff Cayet[place] % % 43.0 74.0 53.1 FINAL Abdulkadir Jaime Rajanot a [facility] - [place], [address] [place] [id number] 0 Phone: () - 09/02 CBC w/ auto diff IG % % 0.0 0.5 0.2 FINAL Abdulkadir Jaime Rajanot a [facility] - [place], [address] [place] [id number] 0 Phone: () - 09/02 CBC w/ auto diff IG # K/uL 0.0 0.03 0.01 FINAL Abdulkadir Jaime Rajanot a [facility] - [place], [address] [place] [id number] 0 Phone: () - 09/02 CBC w/ auto diff LY % % 14.0 41.0 33.6 FINAL Abdulkadir Jaime Rajanot a [facility] - [place], [address] [place] [id number] 0 Phone: () - 09/02 CBC w/ auto diff MO % % 6.0 15.0 8.7 FINAL Abdulkadir Jaime Rajanot a [facility] - [place], [address] [place] [id number] 0 Phone: () - 09/02 CBC w/ auto diff EO % % 0.0 7.0 3.8 FINAL Abdulkadir Jaime Rajanot a [facility] - [place], [address] [place] [id number] 0 Phone: () - 09/02 CBC w/ auto diff BA % % 0.0 2.0 0.6 FINAL Abdulkadir Jaime Rajanot a [facility] - [place], [address] [place] [id number] 0 Phone: () - 09/02 CBC w/ auto diff LY # K/uL 0.4 3.6 1.7 FINAL Abdulkadir Jaime Rajanot a [facility] - [place], [address] [place] [id number] 0 Phone: () - 09/02 CBC w/ auto diff MO # K/uL 0.2 1.3 0.4 FINAL Abdulkadir Jaime Rajanot a [facility] - [place], [address] [place] [id number] 0 Phone: () - 09/02 CBC w/ auto diff EO # K/uL 0.0 0.6 0.2 FINAL Abdulkadir Jaime Rajanot a [facility] - [place], [address] [place] [id number] 0 Phone: () - 09/02 CBC w/ auto diff BA # K/uL 0.0 0.2 0.0 FINAL Abdulkadir Jaime Rajanot a [facility] - [place], [address] [place] [id number] 0 Phone: () - 09/02 CBC w/ auto diff NRBC % #/100W BC 0.0 0.2 0.0 FINAL Abdulkdair Jaime Rajanot a [facility] - [place], [address] [place] [id number] 0 Phone: () - 09/02 CBC w/ auto diff RBC M/uL 4.2 5.6 4.26 FINAL Abdulkadirshell Rajanot a [facility] - [place], [address] [place] [id number] 0 Phone: () - 09/02 CBC w/ auto diff HCT % 39.0 49.0 39.6 FINAL Abdulkadirshell Rajanot a [facility] - [place], [address] [place] [id number] 0 Phone: () - 09/02 CBC w/ auto diff MCV fL 80.0 104.0 93.0 FINAL Abdulkadir Sandoval Satinderot a [facility] - [place], [address] [place] [id number] 0 Phone: () - 09/02 CBC w/ auto diff MCH pg 26.0 35.0 30.8 FINAL Abdulkadir Jaime Satinderot a [facility] - [place], [address] [place] [id number] 0 Phone: () - 09/02 CBC w/ auto diff MCHC g/dL 30.0 35.0 33.1 FINAL Abdulkadir Jaime Satinderot a [facility] - [place], [address] [place] [id number] 0 Phone: () - 09/02 CBC w/ auto diff MPV fL 9.5 13.4 10.2 FINAL Abdulkadir Sandoval Satinderot a [facility] - [place], [address] [place] [id number] 0 Phone: () - 09/02 CBC w/ auto diff RDW % 11.3 15.6 13.50 FINAL Abdulkadir Sandoval Satinderot a [facility] - [place], [address] [place] [id number] 0 Phone: () - 09/02 CMP Album in g/dL 3.2 5.2 4.1 FINAL [place] [address] [address] [facility] [address] [id number] 0 Phone: () - 09/02 CMP Alkal ine phosp hatas e U/L 46.0 116.0 113 FINAL [place] [address] [id number] 0 Phone: () - 09/02 CMP ALT/S GPT U/L 7.0 40.0 23 FINAL [place] [address] [id number] 0 Phone: () - 09/02 CMP AST/S GOT U/L 13.0 40.0 35 FINAL [place] [address] [id number] 0 Phone: () - 09/02 CMP BUN mg/dL 9.0 23.0 20 FINAL [place] [address] [id number] 0 Phone: () - 09/02 CMP Calci um mg/dL 8.7 10.4 10.1 FINAL [place] [address] [id number] 0 Phone: () - 09/02 CMP Chlor narinder mmol/L 96.0 114.0 107 FINAL [place] [address] [id number] 0 Phone: () - 09/02 CMP CO2 [...] of the 96 hour stability window. FINAL [place] [address] [id number] 0 Phone: () - 09/02 CMP Creat inine mg/dL 0.5 1.2 1.00 FINAL [place] [address] [id number] 0 Phone: () - 09/02 CMP GFR estim ate ml/min /1.73m ^2 69.4 GFR is calculate d using the CKD-EPI equation. FINAL [place] [address] [id number] 0 Phone: () - 09/02 CMP Gluco se mg/dL 73.0 126.0 98 FINAL [place] [address] [id number] 0 Phone: () - 09/02 CMP Potas sium mmol/L 3.5 5.1 3.8 FINAL [place] [address] [id number] 0 Phone: () - 09/02 CMP Sodiu m mmol/L 136.0 145.0 144 FINAL [place] [address] [id number] 0 Phone: () - 09/02 CMP Bilir ubin, total mg/dL 0.3 1.2 0.4 FINAL [place] [address] [id number] 0 Phone: () - 09/02 CMP Total prote in g/dL 5.7 8.2 6.9 FINAL [place] [address] [id number] 0 Phone: () - 09/02 PSA diagn ostic panel PSA ng/ml 0.0 4.0 0.70 Test performed at [facility] on a Ustream Immunoass ay Analyzer that uses an immunoenz ymometric sandwich assay for analysis. Patient testing should not be performed using multiple methodunruly plaza due to analytica l variation seen between test methodunruly plaza. FINAL [place] [address] [place] [id number] 0 Phone: () - 09/30 CBC w/ auto diff WBC K/uL 3.0 8.9 6.4 FINAL Abdulkadir Jaime Rajanot a [facility] - [place], [address] [place] [id number] 0 Phone: () - 09/30 CBC w/ auto diff HGB g/dL 12.5 16.6 12.7 FINAL Abdulkadir Jaime Rajanot a [facility] - [place], [address] [place] [id number] 0 Phone: () - 09/30 CBC w/ auto diff PLT K/uL 113.0 364.0 233 FINAL Abdulkadir Jaime Rajanot a [facility] - [place], [address] [place] [id number] 0 Phone: () - 09/30 CBC w/ auto diff Cayet[place] # (ANC) K/uL 1.6 6.6 3.4 FINAL Abdulkadir Jaime Campbell a [facility] - [place], [address] [place] [id number] 0 Phone: () - 09/30 CBC w/ auto diff Cayet[place] % % 43.0 74.0 53.1 FINAL Abdulkadir Jaime Campbell [facility] - [place], [address] [place] [id number] 0 Phone: () - 09/30 CBC w/ auto diff IG % % 0.0 0.5 0.3 FINAL Abdulkadir Jaime Rajanot a [facility] - [place], [address] [place] [id number] 0 Phone: () - 09/30 CBC w/ auto diff IG # K/uL 0.0 0.03 0.02 FINAL Abdulkadir Jaime Rajanot a [facility] - [place], [address] [place] [id number] 0 Phone: () - 09/30 CBC w/ auto diff LY % % 14.0 41.0 33.3 FINAL Abdulkadir Jaime Rajanot a [facility] - [place], [address] [place] [id number] 0 Phone: () - 09/30 CBC w/ auto diff MO % % 6.0 15.0 8.9 FINAL Abdulkadir Jaime Rajanot a [facility] - [place], [address] [place] [id number] 0 Phone: () - 09/30 CBC w/ auto diff EO % % 0.0 7.0 3.8 FINAL Abdulkadir Jaime Rajanot a [facility] - [place], [address] [place] [id number] 0 Phone: () - 09/30 CBC w/ auto diff BA % % 0.0 2.0 0.6 FINAL Abdulkadir Jaime Rajanot a [facility] - [place], [address] [place] [id number] 0 Phone: () - 09/30 CBC w/ auto diff LY # K/uL 0.4 3.6 2.1 FINAL Abdulkadir Jaime Rajanot a [facility] - [place], [address] [place] [id number] 0 Phone: () - 09/30 CBC w/ auto diff MO # K/uL 0.2 1.3 0.6 FINAL Abdulkadir Jaime Rajanot a [facility] - [place], [address] [place] [id number] 0 Phone: () - 09/30 CBC w/ auto diff EO # K/uL 0.0 0.6 0.2 FINAL Abdulkadir Jaime Rajanot a [facility] - [place], [address] [place] [id number] 0 Phone: () - 09/30 CBC w/ auto diff BA # K/uL 0.0 0.2 0.0 FINAL Abdulkadir Jaime Rajanot a [facility] - [place], [address] [place] [id number] 0 Phone: () - 09/30 CBC w/ auto diff NRBC % #/100W BC 0.0 0.2 0.0 FINAL Abdulkadir Jaime Campbell [facility] - [place], [address] [place] [id number] 0 Phone: () - 09/30 CBC w/ auto diff RBC M/uL 4.2 5.6 4.10 Low FINAL Abdulkadir Jaime Rajanot a [facility] - [place], [address] [facility] [address] [place] [id number] 0 Phone: () - 09/30 CBC w/ auto diff HCT % 39.0 49.0 38.4 Low FINAL Abdulkadir [facility] [place], [address] [facility] [address] [place] [id number] 0 Phone: () - 09/30 CBC w/ auto diff MCV fL 80.0 104.0 93.7 FINAL [facility]ulkadir [facility] [place], [address] [place] [id number] 0 Phone: () - 09/30 CBC w/ auto diff MCH pg 26.0 35.0 31.0 FINAL Abdulkadir Ja[facility] [place], [address] [facility] [address] [place] [id number] 0 Phone: () - 09/30 CBC w/ auto diff MCHC g/dL 30.0 35.0 33.1 FINAL Abdulkadir Jaime Campbell [facility] - [place], [address] [place] [id number] 0 Phone: () - 09/30 CBC w/ auto diff MPV fL 9.5 13.4 9.9 FINAL Abdulkadir Jaime Rajanot a [facility] - [place], [address] [place] [id number] 0 Phone: () - 09/30 CBC w/ auto diff RDW % 11.3 15.6 13.60 FINAL [facility]ir [facility], [address] [facility] [phone] 0 Phone: () - 09/30 PSA diagn ostic panel PSA ng/ml 0.0 4.0 0.60 Test performed at [facility] on a Aldagen 2000 Immunoass ay Analyzer that uses an immunoenz ymometric sandwich assay for analysis. Patient testing should not be performed using multiple methodunruly plaza due to analytica l variation seen between test methodunruly plaza. FINAL [facility] [place] [address] [facility] [address] [place] [address] [id number] [phone] Phone: () - 09/30 CMP Album in g/dL 3.2 5.2 4.2 FINAL [facility] [place] [address] [facility] [address] [place] [address] [id number] 0 Phone: () - 09/30 CMP Alkal ine phosp hatas e U/L 46.0 116.0 108 FINAL [facility] [place] [address] [facility] [address] [place] [address] [id number] 0 Phone: () - 09/30 CMP ALT/S GPT U/L 7.0 40.0 22 FINAL [place] [address] [facility] [address] [place] [address] [id number] 0 Phone: () - 09/30 CMP AST/S GOT U/L 13.0 40.0 26 FINAL [place] [address] [facility] [address] [place] [address] [id number] 0 Phone: () - 09/30 CMP BUN mg/dL 9.0 23.0 28 High FINAL [place] [address] [id number] 0 Phone: () - 09/30 CMP Calci um mg/dL 8.7 10.4 10.3 FINAL [facility] [place] [address] [facility] [address] [place] [address] [id number] 0 Phone: () - 09/30 CMP Chlor narinder mmol/L 96.0 114.0 109 FINAL [facility], [address] [facility] [address] [id number] 0 Phone: () - 09/30 CMP CO2 [...] of the 96 hour stability window. FINAL [facility] [place] [address] [id number] 0 Phone: () - 09/30 CMP Creat inine mg/dL 0.5 1.2 0.96 FINAL [place] [address] [id number] 0 Phone: () - 09/30 CMP GFR estim ate ml/min /1.73m ^2 72.8 GFR is calculate d using the CKD-EPI equation. FINAL [place] [address] [id number] 0 Phone: () - 09/30 CMP Gluco se mg/dL 73.0 126.0 73 FINAL [place] [address] [id number] 0 Phone: () - 09/30 CMP Potas sium mmol/L 3.5 5.1 4.2 FINAL [place] [address] [address] [facility] [address] [id number] 0 Phone: () - 09/30 CMP Sodiu m mmol/L 136.0 145.0 146 High FINAL [facility] [address] [facility] [address] [id number] 0 Phone: () - 09/30 CMP Bilir ubin, total mg/dL 0.3 1.2 0.4 FINAL [place] [address] [facility] [address] [facility] [id number] 0 Phone: () - 09/30 CMP Total prote in g/dL 5.7 8.2 6.8 FINAL Abdulkadir weinberg [facility], [address] [facility] [address] [place] [id number] 0 Phone: () - 12/06 PSA diagn ostic panel PSA ng/ml 0.0 4.0 0.50 Test performed at [facility] on a Aldagen 2000 Immunoass ay Analyzer that uses an immunoenz ymometric sandwich assay for analysis. Patient testing should not be performed using multiple methodolo gies due to analytica l variation seen between test methodolo gies. FINAL Abdulkadir weinberg [facility], [address] [facility] [address] [place] [id number] 0 Phone: () - 12/06 CBC w/ auto diff WBC K/uL 3.0 8.9 5.2 FINAL Abdulkadir weinberg [facility] - [place] , [address] [place] [address] [place] [address] [id number] 0 Phone: () - 12/06 CBC w/ auto diff HGB g/dL 12.5 16.6 10.4 Low FINAL Abdulkadir weinberg [facility] - [place] , [address] [place] [address] [place] [address] [place] [id number] 0 Phone: () - 12/06 CBC w/ auto diff PLT K/uL 113.0 364.0 248 FINAL Abdulkadir weinberg [facility] - [place] , [address] [place] [address] [place] [address] [place] [id number] 0 Phone: () - 12/06 CBC w/ auto diff Cayetano # (ANC) K/uL 1.6 6.6 2.6 FINAL Abdulkadir weinberg [facility] - [place] , [address] [place] [address] [place] [address] [place] [id number] 0 Phone: () - 12/06 CBC w/ auto diff Cayetano % % 43.0 74.0 50.8 FINAL Abdulkadir weinberg [facility] - [place], [address] [place] [id number] 0 Phone: () - 12/06 CBC w/ auto diff IG % % 0.0 0.5 0.2 FINAL Abdulkadirshell Campbell [facility] - [place], [address] [place] [id number] 0 Phone: () - 12/06 CBC w/ auto diff IG # K/uL 0.0 0.03 0.01 FINAL Abdulkadirshell Rajanot a [facility] - [place], [address] [place] [id number] 0 Phone: () - 12/06 CBC w/ auto diff LY % % 14.0 41.0 35.7 FINAL Abdulkadirshell Rajanot a [facility] - [place], [address] [place] [id number] 0 Phone: () - 12/06 CBC w/ auto diff MO % % 6.0 15.0 10.6 FINAL Abdulkadirshell Campbell [facility] - [place], [address] [place] [id number] 0 Phone: () - 12/06 CBC w/ auto diff EO % % 0.0 7.0 2.1 FINAL Abdulkadir Campbell [facility] - [place], [address] [place] [id number] 0 Phone: () - 12/06 CBC w/ auto diff BA % % 0.0 2.0 0.6 FINAL Abdulkadirshell Campbell [facility] - [place], [address] [place] [id number] 0 Phone: () - 12/06 CBC w/ auto diff LY # K/uL 0.4 3.6 1.9 FINAL Abdulkadirshell Campbell [facility] - [place], [address] [place] [id number] 0 Phone: () - 12/06 CBC w/ auto diff MO # K/uL 0.2 1.3 0.6 FINAL Abdulkadir Jaime Rajanot a [facility] - [place], [address] [place] [id number] 0 Phone: () - 12/06 CBC w/ auto diff EO # K/uL 0.0 0.6 0.1 FINAL Abdulkadir Jaime Rajanot a [facility] - [place], [address] [place] [id number] 0 Phone: () - 12/06 CBC w/ auto diff BA # K/uL 0.0 0.2 0.0 FINAL Abdulkadir Jaime Rajanot a [facility] - [place], [address] [place] [id number] 0 Phone: () - 12/06 CBC w/ auto diff NRBC % #/100W BC 0.0 0.2 0.0 FINAL Abdulkadir Jaime Rajanot a [facility] - [place], [address] [place] [id number] 0 Phone: () - 12/06 CBC w/ auto diff RBC M/uL 4.2 5.6 3.49 Low FINAL Abdulkadir Jaime Rajanot a [facility] - [place], [address] [place] [id number] 0 Phone: () - 12/06 CBC w/ auto diff HCT % 39.0 49.0 31.6 Low FINAL Abdulkadir Jaime Rajanot a [facility] - [place], [address] [place] [id number] 0 Phone: () - 12/06 CBC w/ auto diff MCV fL 80.0 104.0 90.5 FINAL Abdulkadir Jaime Rajanot a [facility] - [place], [address] [place] [id number] 0 Phone: () - 12/06 CBC w/ auto diff MCH pg 26.0 35.0 29.8 FINAL Abdulkadir Jaime Rajanot a [facility] - [place], [address] [place] [id number] 0 Phone: () - 12/06 CBC w/ auto diff MCHC g/dL 30.0 35.0 32.9 FINAL Abdulkadir Jaime weinberg [facility] - [place], [address] [facility] [address] [place] [id number] 0 Phone: () - 12/06 CBC w/ auto diff MPV fL 9.5 13.4 9.9 FINAL Abdulkadir Jaime weinberg [facility] - [place], [address] [facility] [address] [address] [place] [id number] 0 Phone: () - 12/06 CBC w/ auto diff RDW % 11.3 15.6 13.00 FINAL Abdulkadir Jaime weinberg [facility] - [place], [address] [facility] [address] [facility] [place] [id number] 0 Phone: () - 12/06 CMP Album in g/dL 3.2 5.2 4.1 FINAL Abdulkadir Jaime weinberg [facility], [address] [facility] [address] [place] [address] [id number] 0 Phone: () - 12/06 CMP Alkal ine phosp hatas e U/L 46.0 116.0 103 FINAL Abdulkadir Jaime weinberg [facility], [address] [facility] [address] [place] [address] [id number] 0 Phone: () - 12/06 CMP ALT/S GPT U/L 7.0 40.0 27 FINAL Abdulkadir Jaime Rajan a [facility], [facility] [address] [facility] [address] [place] [address] [id number] 0 Phone: () - 12/06 CMP AST/S GOT U/L 13.0 40.0 56 High FINAL Abdulkadir Jaime Rajan sultana [facility], [facility] [address] [facility] [address] [place] [address] [id number] 0 Phone: () - 12/06 CMP BUN mg/dL 9.0 23.0 26 High FINAL Abdulkadirshell Rajan sultana [facility], [facility] [address] [facility] [address] [place] [address] [id number] 0 Phone: () - 12/06 CMP Calci um mg/dL 8.7 10.4 10.1 FINAL [facility] [place] [address] [id number] 0 Phone: () - 12/06 CMP Chlor narinder mmol/L 96.0 114.0 108 FINAL [place] [address] [id number] 0 Phone: () - 12/06 CMP CO2 [...] of the 96 hour stability window. FINAL [place] [address] [id number] 0 Phone: () - 12/06 CMP Creat inine mg/dL 0.5 1.2 1.21 High FINAL [place] [address] [id number] 0 Phone: () - 12/06 CMP GFR estim ate ml/min /1.73m ^2 55.0 Low GFR is calculate d using the CKD-EPI equation. FINAL [place] [address] [id number] 0 Phone: () - 12/06 CMP Gluco se mg/dL 73.0 126.0 111 FINAL [place] [address] [id number] 0 Phone: () - 12/06 CMP Potas sium mmol/L 3.5 5.1 4.2 FINAL [place] [address] [id number] 0 Phone: () - 12/06 CMP Sodiu m mmol/L 136.0 145.0 144 FINAL [facility] - [place], [address] [place] [id number] 0 Phone: () - 12/06 CMP Bilir ubin, total mg/dL 0.3 1.2 0.3 FINAL Abdulkadir Jaime weinberg [facility] - [place], [address] [place] [id number] 0 Phone: () - 12/06 CMP Total prote in g/dL 5.7 8.2 6.5 FINAL Abdulkadir Jaime [facility] - [place], [address] [place] [id number] 0 Phone: () - 12/06 Color (ua) Yellow FINAL Abdulkadir Jaime [facility] - [place], [address] [place] [id number] 0 Phone: () - 12/06 Appea rosie (ua) Clear FINAL Abdulkadir Jaime [facility] - [place], [address] [place] [id number] 0 Phone: () - 12/06 Gluco se (ua), qual Negativ e FINAL Abdulkadir Jaime [facility] [place], [address] [place] [id number] 0 Phone: () - 12/06 Bilir ubin (ua) Negativ e FINAL Abdulkadir Jaime [facility] - [place], [address] [place] [id number] 0 Phone: () - 12/06 Urina lysis , aceto ne or keton e vladimir s measu remen t Negativ e FINAL Abdulkadir Jaime Rajanot a [facility] - [place], [address] [place] [id number] 0 Phone: () - 12/06 Speci fic gravi ty (ua) 1.005 1.02 1.030 Abnor mal FINAL Abdulkadir Jaime Rajanot a [facility] - [place], [address] [place] [id number] 0 Phone: () - 12/06 Blood (ua) Negativ e FINAL Abdulkadir Jaime Rajanot a [facility] - [place], [address] [place] [id number] 0 Phone: () - 12/06 pH (ua) 5.0 8.0 6.0 FINAL Abdulkadir Jaime Rajanot a [facility] - [place], [address] [place] [id number] 0 Phone: () - 12/06 Prote in (ua) Negativ e FINAL Abdulkadir Jaime Rajanot a [facility] - [place], [address] [place] [id number] 0 Phone: () - 12/06 Urobi linog en (ua) 0.2 1.0 0.2 FINAL Abdulkadir Jaime Rajanot a [facility] - [place], [address] [place] [id number] 0 Phone: () - 12/06 Nitri te (ua) Positiv e Abnor mal FINAL Abdulkadir Jaime [facility] - [place], [address] [place] [id number] 0 Phone: () - 12/06 Leuko cyte theresa ase (ua), qual Negativ e FINAL Abdulkadir Jaime Rajanot a [facility] - [place], [address] [place] [id number] 0 Phone: () - 12/06 UA comme nt 1 Dipstic k Positiv e-Micro Ordered FINAL Abdulkadir Jaime Rajanot a [facility] - [place], [address] [place] [id number] 0 Phone: () - 12/06 UA Micro scopi c WBC (ua) 0.0 2.0 0-2 FINAL Abdulkadir Jaime [facility] - [place], [address] [place] [id number] 0 Phone: () - 12/06 UA Micro scopi c RBC (ua) 0.0 2.0 3-5 Abnor mal FINAL Abdulkadir Jaime weinberg [facility] - [place], [address] [facility] [address] [place] [id number] 0 Phone: () - 12/06 UA Micro scopi c Epith elial cells (ua) Rare 0-2 FINAL Abdulkadir Jaime weinberg [facility] - [place], [address] [place], [place] [address]et [facility] [address] [place] [id number] 0 Phone: () - 12/06 UA Micro scopi c Bacte anai (ua) Moderat e Abnor mal FINAL Abdulkadir Jaime weinberg [facility] - [place], [address] [place] [address] d [address] [facility] [place] [phone] 0 Phone: () - 12/06 UA Micro scopi c Mucus (ua) Negativ e FINAL [facility] Jaime Campbell [facility] - [place], [address] [place] [address] d [address] [facility] [place] [id number] 0 Phone: () - 12/06 UA Micro scopi c Casts , urine None FINAL Abdulkadir Jaime weinberg [facility] - [place], [address] [place] [address] d [address] [facility] [place] [id number] 0 Phone: () - 12/06 UA Micro scopi c Cryst als (ua) None FINAL [facility] Jaime weinberg [facility] - [place], [address] [place] [address] [facility] [address] [place] [id number] 0 Phone: () - 12/06 UA Micro scopi c UA comme nt 1 Micro Positiv e-Cultu re Ordered FINAL [facility] Jaime weinberg On[facility] - [place], [address] [place], [place] [address]et [facility] [facility] [address] [place] [id number] 0 Phone: () - 12/07 Urine cultu [...] m <=0.25 SNitrofur antoin <=16 STest Performed by:[facility] [address] - [facility] [place] [address]Wmrj e [phone] FINAL Abdulkadir Jaime 01/06 CBC w/ auto diff WBC K/uL 3.0 8.9 5.5 FINAL Abdulkadir Jaime [facility] - [place] , [address] [place] [address] [address] [facility] [id number] 0 Phone: () - 01/06 CBC w/ auto diff HGB g/dL 12.5 16.6 11.0 Low FINAL Abdulkadir Jaime Rajanot a [facility] - [place] , [address] [place] [address] [address] [facility] [id number] 0 Phone: () - 01/06 CBC w/ auto diff PLT K/uL 113.0 364.0 245 FINAL Abdulkadir Jaime [facility] - [place] , [address] [place] [address] [address] [facility] [id number] 0 Phone: () - 01/06 CBC w/ auto diff Cayetano # (ANC) K/uL 1.6 6.6 2.9 FINAL Abdulkadir Jaime [facility] - [place], [address] [place] [id number] 0 Phone: () - 01/06 CBC w/ auto diff Cayetano % % 43.0 74.0 52.3 FINAL Abdulkadirshell Campbell [facility] - [place], [address] [place] [id number] 0 Phone: () - 01/06 CBC w/ auto diff IG % % 0.0 0.5 0.2 FINAL Abdulkadirshell Rajanot a [facility] - [place], [address] [place] [id number] 0 Phone: () - 01/06 CBC w/ auto diff IG # K/uL 0.0 0.03 0.01 FINAL Abdulkadirshell Rajanot a [facility] - [place], [address] [place] [id number] 0 Phone: () - 01/06 CBC w/ auto diff LY % % 14.0 41.0 31.1 FINAL Abdulkadirshell Campbell a [facility] - [place], [address] [place] [id number] 0 Phone: () - 01/06 CBC w/ auto diff MO % % 6.0 15.0 9.1 FINAL Abdulkadirshell Campbell a [facility] - [place], [address] [place] [id number] 0 Phone: () - 01/06 CBC w/ auto diff EO % % 0.0 7.0 6.8 FINAL Abdulkadirshell [employer] a [facility] - [place], [address] [place] [id number] 0 Phone: () - 01/06 CBC w/ auto diff BA % % 0.0 2.0 0.5 FINAL Abdulkadir Rajanot a [facility] - [place], [address] [place] [id number] 0 Phone: () - 01/06 CBC w/ auto diff LY # K/uL 0.4 3.6 1.7 FINAL Abdulkadir Jaime Rajanot a [facility] - [place], [address] [place] [id number] 0 Phone: () - 01/06 CBC w/ auto diff MO # K/uL 0.2 1.3 0.5 FINAL Abdulkadir Jaime Rajanot a [facility] - [place], [address] [place] [id number] 0 Phone: () - 01/06 CBC w/ auto diff EO # K/uL 0.0 0.6 0.4 FINAL Abdulkadir Jaime Rajanot a [facility] - [place], [address] [place] [id number] 0 Phone: () - 01/06 CBC w/ auto diff BA # K/uL 0.0 0.2 0.0 FINAL Abdulkadir Jaime Rajanot a [facility] - [place], [address] [place] [id number] 0 Phone: () - 01/06 CBC w/ auto diff NRBC % #/100W BC 0.0 0.2 0.0 FINAL Abdulkadir Jaime Rajanot a [facility] - [place], [address] [place] [id number] 0 Phone: () - 01/06 CBC w/ auto diff RBC M/uL 4.2 5.6 3.75 Low FINAL Abdulkadir Jaime Rajanot a [facility] - [place], [address] [place] [id number] 0 Phone: () - 01/06 CBC w/ auto diff HCT % 39.0 49.0 34.1 Low FINAL Abdulkadir Jaime Rajanot a [facility] - [place], [address] [place] [id number] 0 Phone: () - 01/06 CBC w/ auto diff MCV fL 80.0 104.0 90.9 FINAL Abdulkadir Jaime Rajanot a [facility] - [place], [address] [place] [id number] 0 Phone: () - 01/06 CBC w/ auto diff MCH pg 26.0 35.0 29.3 FINAL Abdulkadirshell weinberg [facility] - [place], [address] [facility] [address] [address] [place] [id number] 0 Phone: () - 01/06 CBC w/ auto diff MCHC g/dL 30.0 35.0 32.3 FINAL Abdulkadir Jaime weinberg [facility] - [place], [address] [facility] [address] [address] [place] [id number] 0 Phone: () - 01/06 CBC w/ auto diff MPV fL 9.5 13.4 10.0 FINAL Abdulkadirshell weinberg [facility] - [place], [address] [facility] [address] [address] [place] [id number] 0 Phone: () - 01/06 CBC w/ auto diff RDW % 11.3 15.6 13.60 FINAL Abdulkadirshell weinberg [facility] - [place], [address] [facility] [address] [address] [place] [id number] 0 Phone: () - 01/06 CMP Album in g/dL 3.2 5.2 4.0 FINAL Abdulkadirshell Rajan a [facility], [address] [facility] [address] [place] [address] [id number] 0 Phone: () - 01/06 CMP Alkal ine phosp hatas e U/L 46.0 116.0 105 FINAL Abdulkadir Jaime Rajan a [facility], [address] [facility] [address] [place] [address] [id number] 0 Phone: () - 01/06 CMP ALT/S GPT U/L 7.0 40.0 29 FINAL Abdulkadir Jaime Rajan a [facility], [address] [facility] [address] [facility] [id number] 0 Phone: () - 01/06 CMP AST/S GOT U/L 13.0 40.0 45 High FINAL Abdulkadir Jaime Rajan a [facility], [address] [facility] [address] [place] [address] [id number] 0 Phone: () - 01/06 CMP BUN mg/dL 9.0 23.0 25 High FINAL [facility] Jaime [facility], [facility] N [facility] 100 [facility] [id number] 0 Phone: () - 01/06 CMP Calci um mg/dL 8.7 10.4 10.1 FINAL [facility] [address] [facility] 100 [facility] [id number] 0 Phone: () - 01/06 CMP Chlor narinder mmol/L 96.0 114.0 108 FINAL [place] [address] [id number] 0 Phone: () - 01/06 CMP CO2 [...] of the 96 hour stability window. FINAL [facility] Jaime [place] [address] [id number] 0 Phone: () - 01/06 CMP Creat inine mg/dL 0.5 1.2 1.14 FINAL [place] [address] [id number] 0 Phone: () - 01/06 CMP GFR estim ate ml/min /1.73m ^2 63.7 GFR is calculate d using the CKD-EPI equation. FINAL [facility], [facility] [address] [id number] 0 Phone: () - 01/06 CMP Gluco se mg/dL 73.0 126.0 119 FINAL [facility] [address] [facility], [address] [id number] 0 Phone: () - 01/06 CMP Potas sium mmol/L 3.5 5.1 3.9 FINAL [facility] [address] [id number] 0 Phone: () - 01/06 CMP Sodiu m mmol/L 136.0 145.0 144 FINAL [facility] [address] [id number] 0 Phone: () - 01/06 CMP Bilir ubin, total mg/dL 0.3 1.2 0.2 Low FINAL [place] [address] [id number] 0 Phone: () - 01/06 CMP Total prote in g/dL 5.7 8.2 6.5 FINAL [place] [address] [id number] 0 Phone: () - 01/06 PSA diagn ostic panel PSA ng/ml 0.0 4.0 0.30 Test performed at [facility] on a [employer] Immunoass ay Analyzer that uses an immunoenz ymometric sandwich assay for analysis. Patient testing should not be performed using multiple methodunruly plaza due to analytica l variation seen between test malik plaza. FINAL [place] [address] [id number] 0 Phone: () - 02/07 CMP Album in g/dL 3.2 5.2 3.9 FINAL [place] [address] [id number] 0 Phone: () - 02/07 CMP Alkal ine phosp hatas e U/L 46.0 116.0 102 FINAL [place] [address] [id number] 0 Phone: () - 02/07 CMP ALT/S GPT U/L 7.0 40.0 30 FINAL [place] [address] [id number] 0 Phone: () - 02/07 CMP AST/S GOT U/L 13.0 40.0 48 High FINAL [facility] [address] [facility] 100 [facility] [id number] 0 Phone: () - 02/07 CMP BUN mg/dL 9.0 23.0 25 High FINAL [facility], [address] [facility] [address] [facility] [id number] 0 Phone: () - 02/07 CMP Calci um mg/dL 8.7 10.4 9.5 FINAL [facility], [address] [facility] 100 [facility] [id number] 0 Phone: () - 02/07 CMP Chlor narinder mmol/L 96.0 114.0 106 FINAL [facility] [address] [facility] [address] [id number] 0 Phone: () - 02/07 CMP CO2 [...] of the 96 hour stability window. FINAL [facility], [address] [id number] 0 Phone: () - 02/07 CMP Creat inine mg/dL 0.5 1.2 1.13 FINAL [facility], [address] [facility] [address] [place] [address] [id number] 0 Phone: () - 02/07 CMP GFR estim ate ml/min /1.73m ^2 64.4 GFR is calculate d using the CKD-EPI equation. FINAL [facility], [address] [facility] [address] [facility] [id number] 0 Phone: () - 02/07 CMP Gluco se mg/dL 73.0 126.0 92 FINAL [facility], [address] [facility] 100 [facility] [id number] 0 Phone: () - 02/07 CMP Potas sium mmol/L 3.5 5.1 3.7 FINAL Abdulkadirshell [facility]anHeartland [facility] Center, [address] [facility] 100 [facility] [phone] 0 Phone: () - 02/07 CMP Sodiu m mmol/L 136.0 145.0 144 FINAL [facility] [address] [facility] 100 [facility] [id number] 0 Phone: () - 02/07 CMP Bilir ubin, total mg/dL 0.3 1.2 0.2 Low FINAL [facility] [address] [id number] 0 Phone: () - 02/07 CMP Total prote in g/dL 5.7 8.2 6.3 FINAL [facility] [address] [id number] 0 Phone: () - 02/07 PSA diagn ostic panel PSA ng/ml 0.0 4.0 0.30 Test performed at [facility] on a Ustream Immunoass ay Analyzer that uses an immunoenz ymometric sandwich assay for analysis. Patient testing should not be performed using multiple methodolo gies due to analytica l variation seen between test methodolo gies. FINAL [facility], [address] [facility] 100 [facility] [id number] 0 Phone: () - 02/07 CBC w/ auto diff WBC K/uL 3.0 8.9 3.6 FINAL [facility] - [place], [address] [place] [id number] 0 Phone: () - 02/07 CBC w/ auto diff HGB g/dL 12.5 16.6 11.9 Low FINAL [facility] - [place], [address] [place] [id number] 0 Phone: () - 02/07 CBC w/ auto diff PLT K/uL 113.0 364.0 184 FINAL Abdulkadir Jaime Campbell a Oncology - [place], [address] [place] [id number] 0 Phone: () - 02/07 CBC w/ auto diff Cayetano # (ANC) K/uL 1.6 6.6 1.8 FINAL Abdulkadir Jaime Campbell a On[facility] - [place], [address] [place] [id number] 0 Phone: () - 02/07 CBC w/ auto diff Cayetano % % 43.0 74.0 48.3 FINAL Abdulkadir Jaime Campbell a [facility] - [place], [address] [place] [id number] 0 Phone: () - 02/07 CBC w/ auto diff IG % % 0.0 0.5 0.3 FINAL Abdulkadir Jamie Campbell a On[facility] - [place], [address] [place] [id number] 0 Phone: () - 02/07 CBC w/ auto diff IG # K/uL 0.0 0.03 0.01 FINAL Abdulkadirshell Campbell a Oncology - [place], [address] [place] [id number] 0 Phone: () - 02/07 CBC w/ auto diff LY % % 14.0 41.0 32.6 FINAL Abdulkadir Jaime Campbell a [facility] - [place], [address] [place] [id number] 0 Phone: () - 02/07 CBC w/ auto diff MO % % 6.0 15.0 15.5 High FINAL Abdulkadirshell Rajanot a Oncology - [place], [address] [place] [id number] 0 Phone: () - 02/07 CBC w/ auto diff EO % % 0.0 7.0 3.0 FINAL Abd[facility]adir [place] [facility] [place], [address] [place] [id number] 0 Phone: () - 02/07 CBC w/ auto diff BA % % 0.0 2.0 0.3 FINAL Abdulkadir Jaime Rajanot a On[facility] - [place], [address] [place] [id number] 0 Phone: () - 02/07 CBC w/ auto diff LY # K/uL 0.4 3.6 1.2 FINAL Abdulkadir Jaime Rajanot a [facility] - [place], [address] [place] [id number] 0 Phone: () - 02/07 CBC w/ auto diff MO # K/uL 0.2 1.3 0.6 FINAL Abdulkadir Jaime Rajanot a On[facility] - [place], [address] [place] [id number] 0 Phone: () - 02/07 CBC w/ auto diff EO # K/uL 0.0 0.6 0.1 FINAL Abdulkadir Jaime Rajanot a [facility] - [place], [address] [place] [id number] 0 Phone: () - 02/07 CBC w/ auto diff BA # K/uL 0.0 0.2 0.0 FINAL Abdulkadir Jaime Rajanot a [facility] - [place], [address] [place] [id number] 0 Phone: () - 02/07 CBC w/ auto diff NRBC % #/100W BC 0.0 0.2 0.0 FINAL Abdulkadir Jaime Rajanot a [facility] - [place], [address] [place] [id number] 0 Phone: () - 02/07 CBC w/ auto diff RBC M/uL 4.2 5.6 4.07 Low FINAL Abdulkadir Jaime Rajanot a [facility] - [place], [address] [place] [id number] 0 Phone: () - 02/07 CBC w/ auto diff HCT % 39.0 49.0 36.0 Low FINAL Abdulkadir Jaime weinberg On[facility] - [place], [address] [facility] [address] [address] [place] [id number] 0 Phone: () - 02/07 CBC w/ auto diff MCV fL 80.0 104.0 88.5 FINAL Abdulkadir Jaime weinberg On[facility] - [place], [address] [place] [address] d [address] [place] [id number] 0 Phone: () - 02/07 CBC w/ auto diff MCH pg 26.0 35.0 29.2 FINAL Abdulkadir Jaime weinberg On[facility] - [place], [address] [facility] [address] [address] [address] [place] [id number] 0 Phone: () - 02/07 CBC w/ auto diff MCHC g/dL 30.0 35.0 33.1 FINAL Abdulkadir Jaime weinberg [facility] - [place], [address] [facility] [address] [place] [id number] 0 Phone: () - 02/07 CBC w/ auto diff MPV fL 9.5 13.4 10.9 FINAL Abdulkadir Jaime weinberg [facility] - [place], [address] [place] [address] d [address] [place] [id number] 0 Phone: () - 02/07 CBC w/ auto diff RDW % 11.3 15.6 14.50 FINAL Abdulkadir Jaime weinberg [facility] - [place], [address] [place] [address] [address] [place] [id number] 0 Phone: () - 03/31 CMP Album in g/dL 3.2 5.2 4.0 FINAL Abdulkadir Jaime Rajan a [facility], [facility] [address] [facility] [address] [place] [address] [id number] 0 Phone: () - 03/31 CMP Alkal ine phosp hatas e U/L 46.0 116.0 87 FINAL Abdulkadir Jaime Rajan a [facility], [address] [facility] [address] [place] [address] [place] [id number] 0 Phone: () - 03/31 CMP ALT/S GPT U/L 7.0 40.0 17 FINAL [facility], [address] [facility] [id number] 0 Phone: () - 03/31 CMP AST/S GOT U/L 13.0 40.0 33 FINAL [facility] [address] [facility] 100 [facility] [id number] 0 Phone: () - 03/31 CMP BUN mg/dL 9.0 23.0 24 High FINAL [place] [address] [facility] [address] [id number] 0 Phone: () - 03/31 CMP Calci um mg/dL 8.7 10.4 10.6 High FINAL [place] [address] [address] [facility] [address] [id number] 0 Phone: () - 03/31 CMP Chlor narinder mmol/L 96.0 114.0 106 FINAL [facility], [address] [facility] [address] [id number] 0 Phone: () - 03/31 CMP CO2 [...] of the 96 hour stability window. FINAL [facility], [address] [facility] [address] [place] [address] [id number] 0 Phone: () - 03/31 CMP Creat inine mg/dL 0.5 1.2 1.33 High FINAL [facility], [address] [place] [address] [id number] 0 Phone: () - 03/31 CMP GFR estim ate ml/min /1.73m ^2 52.9 Low GFR is calculate d using the CKD-EPI equation. FINAL Abdulkadir Jaime Rajan sultana [facility], [address] [facility] [address] [facility] [id number] 0 Phone: () - 03/31 CMP Gluco se mg/dL 73.0 126.0 89 FINAL [facility] Jaime weinberg [facility], [address] [facility] [id number] 0 Phone: () - 03/31 CMP Potas sium mmol/L 3.5 5.1 4.3 FINAL [facility] Jaime weinberg [facility], [address] [place] [address] [id number] 0 Phone: () - 03/31 CMP Sodiu m mmol/L 136.0 145.0 144 FINAL [facility], [address] [facility] [address] [facility] [id number] 0 Phone: () - 03/31 CMP Bilir ubin, total mg/dL 0.3 1.2 0.3 FINAL [facility] Jaime Rajan sultana [facility], [address] [facility] [address] [place] [address] [id number] 0 Phone: () - 03/31 CMP Total prote in g/dL 5.7 8.2 6.3 FINAL [facility] Jaime Rajan sultana [facility], [address] [place] [address] [id number] 0 Phone: () - 03/31 CBC w/ auto diff WBC K/uL 3.0 8.9 6.1 FINAL [facility] Jaime weinberg Oncology - [place] , [address] [place] [address] [place] [address] [place] [id number] 0 Phone: () - 03/31 CBC w/ auto diff HGB g/dL 12.5 16.6 10.3 Low FINAL [facility] Jaime weinberg Oncology [place] , [address] [place] [address] [address] [facility] [place] [id number] 0 Phone: () - 03/31 CBC w/ auto diff PLT K/uL 113.0 364.0 257 FINAL [facility] Jaime Rajan sultana Oncology [place], [address] [place] [id number] 0 Phone: () - 03/31 CBC w/ auto diff Cayetano # (ANC) K/uL 1.6 6.6 3.7 FINAL Abdulkadir Jaime Rajanot a Oncology - [place], [address] [place] [id number] 0 Phone: () - 03/31 CBC w/ auto diff Cayetano % % 43.0 74.0 59.8 FINAL Abdulkadir Jaime Rajanot a Oncology - [place], [address] [place] [id number] 0 Phone: () - 03/31 CBC w/ auto diff IG % % 0.0 0.5 0.3 FINAL Abdulkadir Jaime Rajanot a [facility] - [place], [address] [place] [id number] 0 Phone: () - 03/31 CBC w/ auto diff IG # K/uL 0.0 0.03 0.02 FINAL Abdulkadir Jaime Rajanot a On[facility] - [place], [address] [place] [id number] 0 Phone: () - 03/31 CBC w/ auto diff LY % % 14.0 41.0 27.9 FINAL Abdulkadir Jaime Rajanot a On[facility] - [place], [address] [place] [id number] 0 Phone: () - 03/31 CBC w/ auto diff MO % % 6.0 15.0 10.0 FINAL Abdulkadir Jaime Rajanot a On[facility] - [place], [address] [place] [id number] 0 Phone: () - 03/31 CBC w/ auto diff EO % % 0.0 7.0 1.5 FINAL Abdulkadir Jaime Rajanot a On[facility] - [place], [address] [place] [id number] 0 Phone: () - 03/31 CBC w/ auto diff BA % % 0.0 2.0 0.5 FINAL Abdulkadir Jaime Rajanot a On[facility] - [place], [address] [place] [id number] 0 Phone: () - 03/31 CBC w/ auto diff LY # K/uL 0.4 3.6 1.7 FINAL Abdulkadir Jaime Rajanot a [facility] - [place], [address] [place] [id number] 0 Phone: () - 03/31 CBC w/ auto diff MO # K/uL 0.2 1.3 0.6 FINAL Abdulkadir Jaime Rajanot a On[facility] - [place], [address] [place] [id number] 0 Phone: () - 03/31 CBC w/ auto diff EO # K/uL 0.0 0.6 0.1 FINAL Abdulkadir Jaime Rajanot a On[facility] - [place], [address] [place] [id number] 0 Phone: () - 03/31 CBC w/ auto diff BA # K/uL 0.0 0.2 0.0 FINAL Abdulkadir Jaime Rajanot a [facility] - [place], [address] [place] [id number] 0 Phone: () - 03/31 CBC w/ auto diff NRBC % #/100W BC 0.0 0.2 0.0 FINAL Abdulkadir Jaime Rajanot a [facility] - [place], [address] [place] [id number] 0 Phone: () - 03/31 CBC w/ auto diff RBC M/uL 4.2 5.6 3.50 Low FINAL Abdulkadir Jaime Rajanot a On[facility] - [place], [address] [place] [id number] 0 Phone: () - 03/31 CBC w/ auto diff HCT % 39.0 49.0 31.4 Low FINAL Abdulkadir Jaime Rajanot a On[facility] - [place], [address] [place] [id number] 0 Phone: () - 03/31 CBC w/ auto diff MCV fL 80.0 104.0 89.7 FINAL Abdulkadir Jaime Rajanot a [facility] - [place], [address] [place] [id number] 0 Phone: () - 03/31 CBC w/ auto diff MCH pg 26.0 35.0 29.4 FINAL Abdulkadir Jaime Rajanot a On[facility] - [place], [address] [place] [id number] 0 Phone: () - 03/31 CBC w/ auto diff MCHC g/dL 30.0 35.0 32.8 FINAL Abdulkadir Jaime Rajanot a On[facility] - [place], [address] [place] [id number] 0 Phone: () - 03/31 CBC w/ auto diff MPV fL 9.5 13.4 9.9 FINAL Abdulkadir Jaime Campbell a Oncology - [place], [address] [place] [id number] 0 Phone: () - 03/31 CBC w/ auto diff RDW % 11.3 15.6 15.00 FINAL Abdulkadir Jaime Campbell a Oncology - [place], [address] [place] [id number] 0 Phone: () - 05/02 CBC w/ auto diff WBC K/uL 3.0 8.9 4.9 FINAL Abdulkadir Jaime Rajanot a On[facility] - [place], [address] [place] [id number] 0 Phone: () - 05/02 CBC w/ auto diff HGB g/dL 12.5 16.6 10.7 Low FINAL Abdulkadir Jaime Rajanot a [facility] - [place], [address] [place] [id number] 0 Phone: () - 05/02 CBC w/ auto diff PLT K/uL 113.0 364.0 225 FINAL Abdulkadir Jaime Rajanot a [facility] - [place], [address] [place] [id number] 0 Phone: () - 05/02 CBC w/ auto diff Cayetano # (ANC) K/uL 1.6 6.6 2.6 FINAL Abdulkadir Jaime Rajanot a [facility] - [place], [address] [place] [id number] 0 Phone: () - 05/02 CBC w/ auto diff Cayetano % % 43.0 74.0 53.8 FINAL Abdulkadir Jaime Rajanot a [facility] - [place], [address] [place] [id number] 0 Phone: () - 05/02 CBC w/ auto diff IG % % 0.0 0.5 0.2 FINAL Abdulkadir Jaime Rajanot a [facility] - [place], [address] [place] [id number] 0 Phone: () - 05/02 CBC w/ auto diff IG # K/uL 0.0 0.03 0.01 FINAL Abdulkadir Jaime Rajanot a [facility] - [place], [address] [place] [id number] 0 Phone: () - 05/02 CBC w/ auto diff LY % % 14.0 41.0 31.7 FINAL Abdulkadir Jaime Rajanot a [facility] - [place], [address] [place] [id number] 0 Phone: () - 05/02 CBC w/ auto diff MO % % 6.0 15.0 11.5 FINAL Abdulkadir Jaime Rajanot a [facility] - [place], [address] [place] [id number] 0 Phone: () - 05/02 CBC w/ auto diff EO % % 0.0 7.0 2.0 FINAL Abdulkadir Jaime Rajanot a [facility] - [place], [address] [place] [id number] 0 Phone: () - 05/02 CBC w/ auto diff BA % % 0.0 2.0 0.8 FINAL Abdulkadir Jaime Rajanot a [facility] - [place], [address] [place] [id number] 0 Phone: () - 05/02 CBC w/ auto diff LY # K/uL 0.4 3.6 1.6 FINAL Abdulkadir Jaime Rajanot a [facility] - [place], [address] [place] [id number] 0 Phone: () - 05/02 CBC w/ auto diff MO # K/uL 0.2 1.3 0.6 FINAL Abdulkadir Jaime Rajanot a [facility] - [place], [address] [place] [id number] 0 Phone: () - 05/02 CBC w/ auto diff EO # K/uL 0.0 0.6 0.1 FINAL Abdulkadir Jaime Rajanot a [facility] - [place], [address] [place] [id number] 0 Phone: () - 05/02 CBC w/ auto diff BA # K/uL 0.0 0.2 0.0 FINAL Abdulkadir Jaime Campbell a [facility] - [place], [address] [place] [id number] 0 Phone: () - 05/02 CBC w/ auto diff NRBC % #/100W BC 0.0 0.2 0.0 FINAL Abdulkadir Jaime Rajanot a [facility] - [place], [address] [place] [id number] 0 Phone: () - 05/02 CBC w/ auto diff RBC M/uL 4.2 5.6 3.68 Low FINAL Abdulkadir Jaime Rajanot a [facility] - [place], [address] [place] [id number] 0 Phone: () - 05/02 CBC w/ auto diff HCT % 39.0 49.0 32.6 Low FINAL Abdulkadir Jaime Campbell a [facility] - [place], [address] [place] [id number] 0 Phone: () - 05/02 CBC w/ auto diff MCV fL 80.0 104.0 88.6 FINAL Abdulkadirshell Campbell a [facility] - [place], [address] [place] [id number] 0 Phone: () - 05/02 CBC w/ auto diff MCH pg 26.0 35.0 29.1 FINAL Abdulkadir Jaime Campbell a On[facility] - [place], [address] [place] [id number] 0 Phone: () - 05/02 CBC w/ auto diff MCHC g/dL 30.0 35.0 32.8 FINAL Abdulkadir Jaime weinberg [facility] - [place], [address] [place] [id number] 0 Phone: () - 05/02 CBC w/ auto diff MPV fL 9.5 13.4 9.7 FINAL Abdulkadir Jaime weinberg [facility] - [place], [address] [place] [id number] 0 Phone: () - 05/02 CBC w/ auto diff RDW % 11.3 15.6 14.20 FINAL Abdulkadir Jaime weinberg [facility] - [place], [address] [place] [id number] 0 Phone: () - 05/02 PSA diagn ostic panel PSA ng/ml 0.0 4.0 0.20 Test performed at [facility] on a [employer] 2000 Immunoass ay Analyzer that uses an immunoenz ymometric sandwich assay for analysis. Patient testing should not be performed using multiple methodunruly plaza due to analytica l variation seen between test malik plaza. FINAL Abdulkadir Jaime Campbell a [facility] - [place], [address] [place] [id number] 0 Phone: () - 05/02 CMP Album in g/dL 3.2 5.2 4.1 FINAL [facility] [address] [facility], [address] [facility] [address] [id number] 0 Phone: () - 05/02 CMP Alkal ine phosp hatas e U/L 46.0 116.0 85 FINAL [facility] [address] [facility] [address] [id number] 0 Phone: () - 05/02 CMP ALT/S GPT U/L 7.0 40.0 24 FINAL [place] [address] [address] [facility] [address] [id number] 0 Phone: () - 05/02 CMP AST/S GOT U/L 13.0 40.0 45 High FINAL [facility] [address] [id number] 0 Phone: () - 05/02 CMP BUN mg/dL 9.0 23.0 20 FINAL [place] [address] [address] [facility] [address] [id number] 0 Phone: () - 05/02 CMP Calci um mg/dL 8.7 10.4 10.5 High FINAL [place] [address] [id number] 0 Phone: () - 05/02 CMP Chlor narinder mmol/L 96.0 114.0 106 FINAL [place] [address] [id number] 0 Phone: () - 05/02 CMP CO2 [...] of the 96 hour stability window. FINAL [facility], [facility] [address] [facility] [address] [id number] 0 Phone: () - 05/02 CMP Creat inine mg/dL 0.5 1.2 1.35 High FINAL [facility], [facility] [address] [id number] 0 Phone: () - 05/02 CMP GFR estim ate ml/min /1.73m ^2 51.9 Low GFR is calculate d using the CKD-EPI equation. FINAL [facility] Jaime [place] [address] [id number] 0 Phone: () - 05/02 CMP Gluco se mg/dL 73.0 126.0 94 FINAL [facility] Jaime [place] [address] [id number] 0 Phone: () - 05/02 CMP Potas sium mmol/L 3.5 5.1 4.3 FINAL [facility] Jaime [place] [address] [id number] 0 Phone: () - 05/02 CMP Sodiu m mmol/L 136.0 145.0 144 FINAL [facility] Jaime [place] [address] [id number] 0 Phone: () - 05/02 CMP Bilir ubin, total mg/dL 0.3 1.2 0.3 FINAL [facility] [place] [address] [id number] 0 Phone: () - 05/02 CMP Total prote in g/dL 5.7 8.2 6.5 FINAL [facility], [facility] N [address] [id number] 0 Phone: () - 07/25 CBC w/ auto diff WBC K/uL 3.0 8.9 6.1 FINAL [facility] Jaime [facility], [address] [facility] [id number] 0 Phone: () - 07/25 CBC w/ auto diff HGB g/dL 12.5 16.6 11.8 Low FINAL Abdulkadir Jaime Campbell a [facility] - [place], [address] [place] [id number] 0 Phone: () - 07/25 CBC w/ auto diff PLT K/uL 113.0 364.0 263 FINAL Abdulkadir Jaime weinberg [facility] - [place], [address] [place] [id number] 0 Phone: () - 07/25 CBC w/ auto diff Plate let, immat ure, fract ion % 0.9 11.2 No result FINAL Abdulkadir Jaime Campbell a [facility] - [place], [address] [place] [id number] 0 Phone: () - 07/25 CBC w/ auto diff Cayetano # (ANC) K/uL 1.6 6.6 3.3 FINAL Abdulkadir Jaime weinberg [facility] - [place], [address] [place] [id number] 0 Phone: () - 07/25 CBC w/ auto diff Cayetano % % 43.0 74.0 54.9 FINAL Abdulkadir Jaime weinberg [facility] - [place], [address] [place] [id number] 0 Phone: () - 07/25 CBC w/ auto diff IG % % 0.0 0.5 0.2 FINAL Abdulkadir Jaime Campbell a [facility] - [place], [address] [place] [id number] 0 Phone: () - 07/25 CBC w/ auto diff IG # K/uL 0.0 0.03 0.01 FINAL Abdulkadir Jaime Campbell a [facility] - [place], [address] [place] [id number] 0 Phone: () - 07/25 CBC w/ auto diff LY % % 14.0 41.0 23.3 FINAL Abdulkadir Jaime Campbell a [facility] - [place], [address] [place] [id number] 0 Phone: () - 07/25 CBC w/ auto diff MO % % 6.0 15.0 11.7 FINAL Abdulkadirshell Rajanot a [facility] - [place], [address] [place] [id number] 0 Phone: () - 07/25 CBC w/ auto diff EO % % 0.0 7.0 9.4 High FINAL Abdulkadirshell Rajanot a [facility] - [place], [address] [place] [id number] 0 Phone: () - 07/25 CBC w/ auto diff BA % % 0.0 2.0 0.5 FINAL Abdulkadirshell Rajanot a [facility] - [place], [address] [place] [id number] 0 Phone: () - 07/25 CBC w/ auto diff LY # K/uL 0.4 3.6 1.4 FINAL Abdulkadirshell Campbell a [facility] - [place], [address] [place] [id number] 0 Phone: () - 07/25 CBC w/ auto diff MO # K/uL 0.2 1.3 0.7 FINAL Abdulkadir Campbell a [facility] - [place], [address] [place] [id number] 0 Phone: () - 07/25 CBC w/ auto diff EO # K/uL 0.0 0.6 0.6 FINAL Abdulkadirshell Rajanot a [facility] - [place], [address] [place] [id number] 0 Phone: () - 07/25 CBC w/ auto diff BA # K/uL 0.0 0.2 0.0 FINAL Abdulkadir Rajanot a [facility] - [place], [address] [place] [id number] 0 Phone: () - 07/25 CBC w/ auto diff NRBC % #/100W BC 0.0 0.2 0.0 FINAL Abdulkadir Jaime Rajanot a [facility] - [place], [address] [place] [id number] 0 Phone: () - 07/25 CBC w/ auto diff RBC M/uL 4.2 5.6 3.89 Low FINAL Abdulkadir Jaime Rajanot a [facility] - [place], [address] [place] [id number] 0 Phone: () - 07/25 CBC w/ auto diff HCT % 39.0 49.0 36.0 Low FINAL Abdulkadir Jaime Rajanot a [facility] - [place], [address] [place] [id number] 0 Phone: () - 07/25 CBC w/ auto diff MCV fL 80.0 104.0 92.5 FINAL Abdulkadir Jaime Rajanot a [facility] - [place], [address] [place] [id number] 0 Phone: () - 07/25 CBC w/ auto diff MCH pg 26.0 35.0 30.3 FINAL Abdukladir Jaime Rajanot a [facility] - [place], [address] [place] [id number] 0 Phone: () - 07/25 CBC w/ auto diff MCHC g/dL 30.0 35.0 32.8 FINAL Abdulkadir Jaime Rajanot a [facility] - [place], [address] [place] [id number] 0 Phone: () - 07/25 CBC w/ auto diff MPV fL 9.5 13.4 9.7 FINAL Abdulkadir Jaime Rajanot [facility] - [place], [address] [place] [id number] 0 Phone: () - 07/25 CBC w/ auto diff RDW % 11.3 15.6 14.80 FINAL Abdulkadir Jaime Rajanot a [facility] - [place], [address] [place] [id number] 0 Phone: () - 07/25 CBC w/ auto diff Auto CBC comme nts No result FINAL [facility] Jaime Rajan sultana [facility], [address] [place] [id number] 0 Phone: () - 07/25 PSA diagn ostic panel PSA ng/ml 0.0 4.0 0.10 Test performed at [facility] on a [employer] Immunoass ay Analyzer that uses an immunoenz ymometric sandwich assay for analysis. Patient testing should not be performed using multiple methodolo gies due to analytica l variation seen between test methodolo gies. FINAL [facility] [place] [address] [address] [facility] [address] [place] [address] [phone] 0 Phone: () - 07/25 CMP Album in g/dL 3.2 5.2 4.0 FINAL [facility] [address] [facility] [address] [place] [address] [id number] [phone] Phone: () - 07/25 CMP Alkal ine phosp hatas e U/L 46.0 116.0 105 FINAL [facility] [address] [facility] [address] [place] [address] [id number] [phone] Phone: () - 07/25 CMP ALT/S GPT U/L 7.0 40.0 13 FINAL [facility] [address] [facility] [address] [place] [address] [id number] Phone: () - 07/25 CMP AST/S GOT U/L 13.0 40.0 26 FINAL [facility] [address] [place] [address] [id number] 0 Phone: () - 07/25 CMP BUN mg/dL 9.0 23.0 22 FINAL [facility] [address] [place] [address] [id number] 0 Phone: () - 07/25 CMP Calci um mg/dL 8.7 10.4 9.6 FINAL [facility], [address] [id number] 0 Phone: () - 07/25 CMP Chlor narinder mmol/L 96.0 114.0 106 FINAL Abdulkadirsavannah Sand[place] [address] [id number] 0 Phone: () - 07/25 CMP CO2 [...] 96 hour stability window. FINAL Abdulkadir Jain [address] [id number] 0 Phone: () - 07/25 CMP Creat inine mg/dL 0.5 1.2 1.09 FINAL [facility] Jaime [address] [id number] 0 Phone: () - 07/25 CMP GFR estim ate ml/min /1.73m ^2 67.0 GFR is calculate d using the CKD-EPI equation. FINAL Abdulkadir Jain [place] [address] [id number] 0 Phone: () - 07/25 CMP Gluco se mg/dL 73.0 126.0 96 FINAL [facility] Jaime [address] [id number] 0 Phone: () - 07/25 CMP Potas sium mmol/L 3.5 5.1 4.[address] [id number] 0 Phone: () - 07/25 CMP Sodiu m mmol/L 136.0 145.0 142 FINAL [facility] [place] [address] [id number] 0 Phone: () - 07/25 CMP Bilir ubin, total mg/dL 0.3 1.2 0.3 FINAL Abdulkadirshell weinberg [facility], [address] [facility] [address] [place] [id number] 0 Phone: () - 07/25 CMP Total prote in g/dL 5.7 8.2 6.4 FINAL Abdulkadirshell weinberg [facility], [address] [facility] [address] [facility] [id number] 0 Phone: () - 10/24 PSA diagn ostic panel PSA ng/ml 0.0 4.0 0.10 Test performed at [facility] on a Ustream Immunoass ay Analyzer that uses an immunoenz ymometric sandwich assay for analysis. Patient testing should not be performed using multiple methodunruly plaza due to analytica l variation seen between test methodunruly plaza. FINAL Abdulkadirshell weinberg [facility], [address] [facility] [address] [facility] [id number] 0 Phone: () - 10/24 CBC w/ auto diff WBC K/uL 3.0 8.9 4.2 FINAL Abdulkadirshell weinberg [facility] - [place], [address] [place] [id number] 0 Phone: () - 10/24 CBC w/ auto diff HGB g/dL 12.5 16.6 10.1 Low FINAL Abdulkadirshell weinberg [facility] - [place], [address] [place] [id number] 0 Phone: () - 10/24 CBC w/ auto diff PLT K/uL 113.0 364.0 269 FINAL Abdulkadirshell Campbell a [facility] - [place], [address] [place] [id number] 0 Phone: () - 10/24 CBC w/ auto diff Cayetano # (ANC) K/uL 1.6 6.6 2.1 FINAL Abdulkadirshell Campbell a [facility] - [place], [address] [place] [id number] 0 Phone: () - 10/24 CBC w/ auto diff Cayetano % % 43.0 74.0 50.7 FINAL Abdulkadir Jaime aRjanot a [facility] - [place], [address] [place] [id number] 0 Phone: () - 10/24 CBC w/ auto diff IG % % 0.0 0.5 0.0 FINAL Abdulkadir Jaime Rajanot a [facility] - [place], [address] [place] [id number] 0 Phone: () - 10/24 CBC w/ auto diff IG # K/uL 0.0 0.03 0.00 FINAL Abdulkadir Jaime Rajanot a [facility] - [place], [address] [place] [id number] 0 Phone: () - 10/24 CBC w/ auto diff LY % % 14.0 41.0 34.9 FINAL Adbulkadir Jaime Rajanot a [facility] - [place], [address] [place] [id number] 0 Phone: () - 10/24 CBC w/ auto diff MO % % 6.0 15.0 11.2 FINAL Abdulkadir Jaime Rajanot a [facility] - [place], [address] [place] [id number] 0 Phone: () - 10/24 CBC w/ auto diff EO % % 0.0 7.0 2.2 FINAL Abdulkadir Jaime Rajanot a [facility] - [place], [address] [place] [id number] 0 Phone: () - 10/24 CBC w/ auto diff BA % % 0.0 2.0 1.0 FINAL Abdulkadir Jaime Rajanot a [facility] - [place], [address] [place] [id number] 0 Phone: () - 10/24 CBC w/ auto diff LY # K/uL 0.4 3.6 1.5 FINAL Abdulkadir Jaime Rajanot a [facility] - [place], [address] [place] [id number] 0 Phone: () - 10/24 CBC w/ auto diff MO # K/uL 0.2 1.3 0.5 FINAL Abdulkadir Jaime Rajanot a [facility] - [place], [address] [place] [id number] 0 Phone: () - 10/24 CBC w/ auto diff EO # K/uL 0.0 0.6 0.1 FINAL Abdulkadir Jaime Rajanot a [facility] - [place], [address] [place] [id number] 0 Phone: () - 10/24 CBC w/ auto diff BA # K/uL 0.0 0.2 0.0 FINAL Abdulkadir Jaime Rajanot a [facility] - [place], [address] [place] [id number] 0 Phone: () - 10/24 CBC w/ auto diff NRBC % #/100W BC 0.0 0.2 0.0 FINAL Abdulkadir Jaime Rajanot a [facility] - [place], [address] [place] [id number] 0 Phone: () - 10/24 CBC w/ auto diff RBC M/uL 4.2 5.6 3.37 Low FINAL Abdulkadir Jaime Rajanot a [facility] - [place], [address] [place] [id number] 0 Phone: () - 10/24 CBC w/ auto diff HCT % 39.0 49.0 31.2 Low FINAL Abdulkadir Jaime Rajanot a [facility] - [place], [address] [place] [id number] 0 Phone: () - 10/24 CBC w/ auto diff MCV fL 80.0 104.0 92.6 FINAL Abdulkadir Jaime Rajanot a [facility] - [place], [address] [place] [id number] 0 Phone: () - 10/24 CBC w/ auto diff MCH pg 26.0 35.0 30.0 FINAL Abdulkadir Jaime Campbell a [facility] - [place], [address] [place] [id number] 0 Phone: () - 10/24 CBC w/ auto diff MCHC g/dL 30.0 35.0 32.4 FINAL Abdulkadir Jaime Campbell a [facility] - [place], [address] [place] [id number] 0 Phone: () - 10/24 CBC w/ auto diff MPV fL 9.5 13.4 10.1 FINAL Abdulkadir Jaime Campbell a [facility] - [place], [address] [place] [id number] 0 Phone: () - 10/24 CBC w/ auto diff RDW % 11.3 15.6 14.40 FINAL Abdulkadir Jaime Campbell a [facility] - [place], [address] [facility] [address] [place] [id number] 0 Phone: () - 10/24 CMP Album in g/dL 3.2 5.2 4.0 FINAL [facility] Jaime weinberg [facility], [address] [place] [address] [id number] 0 Phone: () - 10/24 CMP Alkal ine phosp hatas e U/L 46.0 116.0 78 FINAL [facility] Jaime Rajan a [facility], [facility] [address] [place] [address] [id number] 0 Phone: () - 10/24 CMP ALT/S GPT U/L 7.0 40.0 12 FINAL [facility] Jaime Rajanot a [facility], [address] [place] [address] [id number] 0 Phone: () - 10/24 CMP AST/S GOT U/L 13.0 40.0 26 FINAL [facility] Jaime Rajan a [facility], [address] [place] [address] [place] [id number] 0 Phone: () - 10/24 CMP BUN mg/dL 9.0 23.0 23 FINAL [facility] [place] [address] [id number] 0 Phone: () - 10/24 CMP Calci um mg/dL 8.7 10.4 10.1 FINAL [place] [address] [id number] 0 Phone: () - 10/24 CMP Chlor narinder mmol/L 96.0 114.0 107 FINAL Abdulkadir Jain [place] [address] [id number] 0 Phone: () - 10/24 CMP CO2 [...] 96 hour stability window. FINAL Abdulkadir Sandoval [place] [address] [id number] 0 Phone: () - 10/24 CMP Creat inine mg/dL 0.5 1.2 1.16 FINAL Abdulkadir Jain [place] [address] [id number] 0 Phone: () - 10/24 CMP GFR estim ate ml/min /1.73m ^2 62.1 GFR is calculate d using the CKD-EPI equation. FINAL [place] [address] [id number] 0 Phone: () - 10/24 CMP Gluco se mg/dL 73.0 126.0 110 FINAL [facility] Jaime [place] [address] [id number] 0 Phone: () - 10/24 CMP Potas sium mmol/L 3.5 5.1 3.8 FINAL [facility] Jaime [place] [address] [id number] 0 Phone: () - 10/24 CMP Sodiu m mmol/L 136.0 145.0 145 FINAL Abdulkadir Jaime Campbell [facility] - [place], [address] [place] [id number] 0 Phone: () - 10/24 CMP Bilir ubin, total mg/dL 0.3 1.2 0.5 FINAL Abdulkadir Jaime Campbell [facility] - [place], [address] [place] [id number] 0 Phone: () - 10/24 CMP Total prote in g/dL 5.7 8.2 6.4 FINAL Abdulkadir Jaime Campbell [facility] - [place], [address] [place] [id number] 0 Phone: () - 11/03 [facility] other lab 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 d 01/18 CBC w/ auto diff WBC K/uL 3.0 8.9 5.0 FINAL Abdulkadir Jaime Campbell [facility] - [place], [address] [facility] [address] [facility] [place] [id number] 0 Phone: () - 01/18 CBC w/ auto diff HGB g/dL 12.5 16.6 11.3 Low FINAL Abdulkadir Jaime Campbell [facility] - [place], [address] [place] [address] [facility] [facility] [address] [facility] [place] [id number] 0 Phone: () - 01/18 CBC w/ auto diff PLT K/uL 113.0 364.0 177 FINAL Abdulkadir Jaime Rajanot a [facility] - [place], [address] [facility] [place] [id number] 0 Phone: () - 01/18 CBC w/ auto diff Cayetano # (ANC) K/uL 1.6 6.6 2.8 FINAL Abdulkadir Jaime Rajanot a [facility] - [place], [address] [facility] [place] [id number] 0 Phone: () - 01/18 CBC w/ auto diff Cayetano % % 43.0 74.0 55.5 FINAL Abdulkadir Jaime Rajanot a [facility] - [place], [address] [place] [id number] 0 Phone: () - 01/18 CBC w/ auto diff IG % % 0.0 0.5 0.2 FINAL Abdulkadir Campbell a [facility] - [place], [address] [place] [id number] 0 Phone: () - 01/18 CBC w/ auto diff IG # K/uL 0.0 0.03 0.01 FINAL Abdulkadir Rajanot a [facility] - [place], [address] [place] [id number] 0 Phone: () - 01/18 CBC w/ auto diff LY % % 14.0 41.0 31.7 FINAL Abdulkadir Rajanot a [facility] - [place], [address] [place] [id number] 0 Phone: () - 01/18 CBC w/ auto diff MO % % 6.0 15.0 10.6 FINAL Abdulkadir Campbell a [facility] - [place], [address] [place] [id number] 0 Phone: () - 01/18 CBC w/ auto diff EO % % 0.0 7.0 1.6 FINAL Abdulkadir Campbell a [facility] - [place], [address] [place] [id number] 0 Phone: () - 01/18 CBC w/ auto diff BA % % 0.0 2.0 0.4 FINAL Abdulkadir Campbell a [facility] - [place], [address] [place] [id number] 0 Phone: () - 01/18 CBC w/ auto diff LY # K/uL 0.4 3.6 1.6 FINAL Abdulkadir Campbell a [facility] - [place], [address] [place] [id number] 0 Phone: () - 01/18 CBC w/ auto diff MO # K/uL 0.2 1.3 0.5 FINAL Abdulkadir Jaime Rajanot a [facility] - [place], [address] [place] [id number] 0 Phone: () - 01/18 CBC w/ auto diff EO # K/uL 0.0 0.6 0.1 FINAL Abdulkadir Jaime Rajanot a [facility] - [place], [address] [place] [id number] 0 Phone: () - 01/18 CBC w/ auto diff BA # K/uL 0.0 0.2 0.0 FINAL Abdulkadir Jaime Rajanot a [facility] - [place], [address] [place] [id number] 0 Phone: () - 01/18 CBC w/ auto diff NRBC % #/100W BC 0.0 0.2 0.0 FINAL Abdulkadir Jaime Rajanot a [facility] - [place], [address] [place] [id number] 0 Phone: () - 01/18 CBC w/ auto diff RBC M/uL 4.2 5.6 3.56 Low FINAL Abdulkadir Jaime Rajanot a [facility] - [place], [address] [place] [id number] 0 Phone: () - 01/18 CBC w/ auto diff HCT % 39.0 49.0 33.2 Low FINAL Abdulkadir Jaime Rajanot a [facility] - [place], [address] [place] [id number] 0 Phone: () - 01/18 CBC w/ auto diff MCV fL 80.0 104.0 93.3 FINAL Abdulkadir Jaime Rajanot a [facility] - [place], [address] [place] [id number] 0 Phone: () - 01/18 CBC w/ auto diff MCH pg 26.0 35.0 31.7 FINAL Abdulkadir Jaime Rajanot a [facility] - [place], [address] [place] [id number] 0 Phone: () - 01/18 CBC w/ auto diff MCHC g/dL 30.0 35.0 34.0 FINAL Abdulkadir weinberg [facility] - [place], [address] [facility] [address] [place] [id number] 0 Phone: () - 01/18 CBC w/ auto diff MPV fL 9.5 13.4 11.2 FINAL Abdulkadirshell weinberg [facility] - [place], [address] [facility] [facility] [place] [id number] 0 Phone: () - 01/18 CBC w/ auto diff RDW % 11.3 15.6 13.50 FINAL Abdulkadirshell weinberg [facility] - [place], [address] [facility] [address] [address] [facility] [place] [id number] 0 Phone: () - 01/18 CMP Album in g/dL 3.2 5.2 4.0 FINAL [facility]ir [facility], [address] [facility] [address] [place] [address] [id number] 0 Phone: () - 01/18 CMP Alkal ine phosp hatas e U/L 46.0 116.0 77 FINAL [facility], [address] [facility] [address] [place] [address] [id number] 0 Phone: () - 01/18 CMP ALT/S GPT U/L 7.0 40.0 14 FINAL [facility] [place] [address] [address] [facility] [address] [place] [address] [id number] 0 Phone: () - 01/18 CMP AST/S GOT U/L 13.0 40.0 29 FINAL [facility] [address] [facility], [address] [facility] [address] [place] [address] [id number] Phone: () - 01/18 CMP BUN mg/dL 9.0 23.0 23 FINAL Abdulkadir Jaime [facility], [address] [facility] [address] [place] [address] [id number] 0 Phone: () - 01/18 CMP Calci um mg/dL 8.7 10.4 9.7 FINAL [place] [address] [address] [facility] [address] [id number] 0 Phone: () - 01/18 CMP Chlor narinder mmol/L 96.0 114.0 110 FINAL [facility], [address] [facility] [address] [facility] [id number] 0 Phone: () - 01/18 CMP CO2 [...] of the 96 hour stability window. FINAL [place] [address] [id number] 0 Phone: () - 01/18 CMP Creat inine mg/dL 0.5 1.2 1.28 High FINAL [place] [address] [id number] 0 Phone: () - 01/18 CMP GFR estim ate ml/min /1.73m ^2 55.1 Low GFR is calculate d using the CKD-EPI equation. FINAL [place] [address] [id number] 0 Phone: () - 01/18 CMP Gluco se mg/dL 73.0 126.0 101 FINAL [facility] [address] [facility] [address] [id number] 0 Phone: () - 01/18 CMP Potas sium mmol/L 3.5 5.1 4.1 [facility] [address] [facility] [address] [id number] 0 Phone: () - 01/18 CMP Sodiu m mmol/L 136.0 145.0 144 FINAL [facility], [address] [facility] [address] [id number] 0 Phone: () - 01/18 CMP Bilir ubin, total mg/dL 0.3 1.2 0.2 Low FINAL [facility] J[place]em [place] [address] [address] [facility] [address] [id number] 0 Phone: () - 01/18 CMP Total prote in g/dL 5.7 8.2 6.2 FINAL [facility] Jaime [place] [address] [id number] 0 Phone: () - 01/18 PSA diagn ostic panel PSA ng/ml 0.0 4.0 PSA less than 0.05; Repeate d Test performed at [facility] on a Ustream Immunoass ay Analyzer that uses an immunoenz ymometric sandwich assay for analysis. Patient testing should not be performed using multiple methodunruly plaza due to analytica l variation seen between test methodunruly plaza. FINAL [facility] [place] [address] [id number] 0 Phone: () - 05/04 CMP Album in g/dL 3.2 5.2 4.1 FINAL [facility] Jaime [place] [address] [id number] 0 Phone: () - 05/04 CMP Alkal ine phosp hatas e U/L 46.0 116.0 111 FINAL [place] [address] [id number] 0 Phone: () - 05/04 CMP ALT/S GPT U/L 7.0 40.0 19 FINAL [place] [address] [address] [facility] [address] [id number] 0 Phone: () - 05/04 CMP AST/S GOT U/L 13.0 40.0 34 FINAL [place] [address] [address] [facility] [address] [id number] 0 Phone: () - 05/04 CMP BUN mg/dL 9.0 23.0 19.0 FINAL [facility] [address] [facility], [address] [facility] [address] [facility] [id number] 0 Phone: () - 05/04 CMP Calci um mg/dL 8.7 10.4 9.8 FINAL [facility], [address] [facility] [id number] 0 Phone: () - 05/04 CMP Chlor narinder mmol/L 96.0 114.0 107 FINAL [facility], [address] [facility] [address] [facility] [id number] 0 Phone: () - 05/04 CMP CO2 [...] of the 96 hour stability window. FINAL [facility], [address] [facility] 100 [facility] [id number] 0 Phone: () - 05/04 CMP Creat inine mg/dL 0.5 1.2 1.06 FINAL [facility] [address] [facility] [address] [place] [address] [id number] 0 Phone: () - 05/04 CMP GFR estim ate ml/min /1.73m ^2 69.0 GFR is calculate d using the CKD-EPI equation. FINAL [facility], [address] [facility] [address] [facility] [id number] 0 Phone: () - 05/04 CMP Gluco se mg/dL 73.0 126.0 73 FINAL [facility], [address] [facility] [id number] 0 Phone: () - 05/04 CMP Potas sium mmol/L 3.5 5.1 4.2 FINAL [facility], [address] [facility] [address] [facility] [id number] 0 Phone: () - 05/04 CMP Sodiu m mmol/L 136.0 145.0 144 FINAL Abdulkadir weinberg [facility], [address] [facility] [address] [facility] [id number] 0 Phone: () - 05/04 CMP Bilir ubin, total mg/dL 0.3 1.2 0.3 FINAL Abdulkadir Jaime weinberg [facility], [address] [facility] [address] [facility] [id number] 0 Phone: () - 05/04 CMP Total prote in g/dL 5.7 8.2 6.5 FINAL Abdulkadirshell weinberg [facility] [address] [facility] [address] [facility] [id number] 0 Phone: () - 05/04 PSA diagn ostic panel PSA ng/ml 0.0 4.0 PSA less than 0.05 Test performed at [facility] on a [employer]stream Immunoass ay Analyzer that uses an immunoenz ymometric sandwich assay for analysis. Patient testing should not be performed using multiple methodolo mela due to analytica l variation seen between test methodunruly plaza. FINAL Abdulkadirshell weinberg [facility], [address] [facility] [address] [facility] [id number] 0 Phone: () - 05/04 CBC w/ auto diff WBC K/uL 3.0 8.9 4.3 FINAL Abdulkadir Jaime weinberg [facility] [address] [facility] [address] [facility] [id number] 0 Phone: () - 05/04 CBC w/ auto diff HGB g/dL 12.5 16.6 11.5 Low FINAL [facility] Jaime weinberg [facility] - [place] , [facility] [address] [facility] [address] [facility] [place] [id number] 0 Phone: () - 05/04 CBC w/ auto diff PLT K/uL 113.0 364.0 222 FINAL [facility] Jaime [facility] - [place] , [address] [place] [address] [address] [facility] [address] [place] [id number] 0 Phone: () - 05/04 CBC w/ auto diff Cayetano # (ANC) K/uL 1.6 6.6 2.0 FINAL Abdulkadirshell Rajanot a [facility] - [place], [address] [place] [id number] 0 Phone: () - 05/04 CBC w/ auto diff Cayetano % % 43.0 74.0 46.4 FINAL Abdulkadirshell Rajanot a [facility] - [place], [address] [place] [id number] 0 Phone: () - 05/04 CBC w/ auto diff IG % % 0.0 0.5 0.0 FINAL Abdulkadirshell Rajanot a [facility] - [place], [address] [place] [id number] 0 Phone: () - 05/04 CBC w/ auto diff IG # K/uL 0.0 0.03 0.00 FINAL Abdulkadirshell Rajanot a [facility] - [place], [address] [place] [id number] 0 Phone: () - 05/04 CBC w/ auto diff LY % % 14.0 41.0 38.0 FINAL Abdulkadirshell Rajanot a [facility] - [place], [address] [place] [id number] 0 Phone: () - 05/04 CBC w/ auto diff MO % % 6.0 15.0 10.0 FINAL Abdulkadirshell Rajanot a [facility] - [place], [address] [place] [id number] 0 Phone: () - 05/04 CBC w/ auto diff EO % % 0.0 7.0 4.9 FINAL Abdulkadirshell Rajanot a [facility] - [place], [address] [place] [id number] 0 Phone: () - 05/04 CBC w/ auto diff BA % % 0.0 2.0 0.7 FINAL Abdulkadir [place] [facility] [place], [address] [place] [id number] 0 Phone: () - 05/04 CBC w/ auto diff LY # K/uL 0.4 3.6 1.6 FINAL Abdulkadir Jaime Rajanot a [facility] - [place], [address] [place] [id number] 0 Phone: () - 05/04 CBC w/ auto diff MO # K/uL 0.2 1.3 0.4 FINAL Abdulkadir Jaime Rajanot a [facility] - [place], [address] [place] [id number] 0 Phone: () - 05/04 CBC w/ auto diff EO # K/uL 0.0 0.6 0.2 FINAL Abdulkadir Jaime Rajanot a [facility] - [place], [address] [place] [id number] 0 Phone: () - 05/04 CBC w/ auto diff BA # K/uL 0.0 0.2 0.0 FINAL Abdulkadir Jaime Rajanot a [facility] - [place], [address] [place] [id number] 0 Phone: () - 05/04 CBC w/ auto diff NRBC % #/100W BC 0.0 0.2 0.0 FINAL Abdulkadir Jaime Rajanot a [facility] - [place], [address] [place] [id number] 0 Phone: () - 05/04 CBC w/ auto diff RBC M/uL 4.2 5.6 3.89 Low FINAL Abdulkadir Jaime Rajanot a [facility] - [place], [address] [place] [id number] 0 Phone: () - 05/04 CBC w/ auto diff HCT % 39.0 49.0 34.7 Low FINAL Abdulkadir Jaime Rajanot a [facility] - [place], [address] [place] [id number] 0 Phone: () - 05/04 CBC w/ auto diff MCV fL 80.0 104.0 89.2 FINAL Abdulkadir Jaime weinberg [facility] - [place], [address] [facility] [address] [place] [id number] 0 Phone: () - 05/04 CBC w/ auto diff MCH pg 26.0 35.0 29.6 FINAL Abdulkadir Jaime weinberg [facility] - [place], [address] [facility] [facility] [address] [place] [id number] Phone: () - 05/04 CBC w/ auto diff MCHC g/dL 30.0 35.0 33.1 FINAL Abdulkadir Jaime we[facility] [place], [address] [place] [phone] 0 Phone: () - 05/04 CBC w/ auto diff MPV fL 9.5 13.4 11.0 FINAL Abdulkadir Jaime [facility] [place], [address] [place] [id number] 0 Phone: () - 05/04 CBC w/ auto diff RDW % 11.3 15.6 14.10 FINAL Abdulkadirshell weinberg [facility] - [place], [address] [place] [address] d [address] [place] [id number] 0 Phone: () - 08/03 CMP Album in g/dL 3.2 5.2 3.9 FINAL Abdulkadirshell weinberg [place] [address] [facility] [address] [place] [address] [id number] 0 Phone: () - 08/03 CMP Alkal ine phosp hatas e U/L 46.0 116.0 117 High FINAL Abdulkadir Jaime we[facility] [place] [address] [facility] [address] [place] [address] [id number] 0 Phone: () - 08/03 CMP ALT/S GPT U/L 7.0 40.0 14 FINAL Abdulkadir Jaime Campbell a [place] [address] [facility] [address] [place] [address] [id number] 0 Phone: () - 08/03 CMP AST/S GOT U/L 13.0 40.0 28 FINAL [facility], [facility] [address] [id number] 0 Phone: () - 08/03 CMP BUN mg/dL 9.0 23.0 16.0 FINAL [place] [address] [address] [facility] 100 [facility] [id number] 0 Phone: () - 08/03 CMP Calci um mg/dL 8.7 10.4 9.5 FINAL [place] [address] [address] [facility] [address] [id number] 0 Phone: () - 08/03 CMP Chlor narinder mmol/L 96.0 114.0 109 FINAL [place] [address] [id number] 0 Phone: () - 08/03 CMP CO2 [...] of the 96 hour stability window. FINAL [place] [address] [id number] 0 Phone: () - 08/03 CMP Creat inine mg/dL 0.5 1.2 1.13 FINAL [place] [address] [address] [facility] [address] [id number] 0 Phone: () - 08/03 CMP GFR estim ate ml/min /1.73m ^2 63.8 GFR is calculate d using the CKD-EPI equation. FINAL [facility], [facility] N [facility] [address] [id number] 0 Phone: () - 08/03 CMP Gluco se mg/dL 73.0 126.0 100 FINAL [facility], [address] [place] [address] [id number] 0 Phone: () - 08/03 CMP Potas sium mmol/L 3.5 5.1 4.5 FINAL [facility], [address] [facility] [id number] 0 Phone: () - 08/03 CMP Sodiu m mmol/L 136.0 145.0 144 FINAL [facility] [address] [facility] [address] [place] [address] [id number] 0 Phone: () - 08/03 CMP Bilir ubin, total mg/dL 0.3 1.2 0.3 FINAL [facility] [address] [facility] [address] [place] [address] [id number] 0 Phone: () - 08/03 CMP Total prote in g/dL 5.7 8.2 6.2 FINAL [facility], [address] [id number] 0 Phone: () - 08/03 PSA diagn ostic panel PSA ng/ml 0.0 4.0 PSA less than 0.05 Test performed at [facility] on a [employer] Immunoass ay Analyzer that uses an immunoenz ymometric sandwich assay for analysis. Patient testing should not be performed using multiple methodunruly plaza due to analytica l variation seen between test methodunruly plaza. FINAL [facility], [address] [facility] [address] [place] [address] [id number] 0 Phone: () - 08/03 CBC w/ auto diff WBC K/uL 3.0 8.9 4.3 FINAL [facility], [address] [facility] [address] [facility] [address] [facility] [id number] 0 Phone: () - 08/03 CBC w/ auto diff HGB g/dL 12.5 16.6 10.9 Low FINAL [facility] [place], [address] [place] [id number] 0 Phone: () - 08/03 CBC w/ auto diff PLT K/uL 113.0 364.0 201 FINAL Abdulkadirshell Campbell a [facility] [place], [address] [place] [id number] 0 Phone: () - 08/03 CBC w/ auto diff Cayetano # (ANC) K/uL 1.6 6.6 2.4 FINAL Abdulkadirshell Rajanot a [facility] - [place], [address] [place] [id number] 0 Phone: () - 08/03 CBC w/ auto diff Cayetano % % 43.0 74.0 55.3 FINAL Abdulkadirshell Rajanot a [facility] - [place], [address] [place] [id number] 0 Phone: () - 08/03 CBC w/ auto diff IG % % 0.0 0.5 0.2 FINAL Abdulkadirshell Campbell a [facility] - [place], [address] [place] [id number] 0 Phone: () - 08/03 CBC w/ auto diff IG # K/uL 0.0 0.03 0.01 FINAL Abdulkadirshell Campbell a [facility] [place], [address] [place] [id number] 0 Phone: () - 08/03 CBC w/ auto diff LY % % 14.0 41.0 31.9 FINAL Abdulkadirshell Rajanot a [facility] - [place], [address] [place] [id number] 0 Phone: () - 08/03 CBC w/ auto diff MO % % 6.0 15.0 10.2 FINAL Abdulkadirshell Rajanot a [facility] - [place], [address] [place] [id number] 0 Phone: () - 08/03 CBC w/ auto diff EO % % 0.0 7.0 1.9 FINAL Abdulkadir Jaime Rajanot a [facility] - [place], [address] [place] [id number] 0 Phone: () - 08/03 CBC w/ auto diff BA % % 0.0 2.0 0.5 FINAL Abdulkadir Jaime Rajanot a [facility] - [place], [address] [place] [id number] 0 Phone: () - 08/03 CBC w/ auto diff LY # K/uL 0.4 3.6 1.4 FINAL Abdulkadir Jaime Rajanot a [facility] - [place], [address] [place] [id number] 0 Phone: () - 08/03 CBC w/ auto diff MO # K/uL 0.2 1.3 0.4 FINAL Abdulkadir Jaime Rajanot a [facility] - [place], [address] [place] [id number] 0 Phone: () - 08/03 CBC w/ auto diff EO # K/uL 0.0 0.6 0.1 FINAL Abdulkadir Jaime Rajanot a [facility] - [place], [address] [place] [id number] 0 Phone: () - 08/03 CBC w/ auto diff BA # K/uL 0.0 0.2 0.0 FINAL Abdulkadir Jaime Rajanot a [facility] - [place], [address] [place] [id number] 0 Phone: () - 08/03 CBC w/ auto diff NRBC % #/100W BC 0.0 0.2 0.0 FINAL Abdulkadir Jaime Rajanot a [facility] - [place], [address] [place] [id number] 0 Phone: () - 08/03 CBC w/ auto diff RBC M/uL 4.2 5.6 3.69 Low FINAL Abdulkadir Jaime Rajanot a [facility] - [place], [address] [place] [id number] 0 Phone: () - 08/03 CBC w/ auto diff HCT % 39.0 49.0 34.2 Low FINAL Abdulkadir weinberg [facility] - [place], [address] [place] [id number] 0 Phone: () - 08/03 CBC w/ auto diff MCV fL 80.0 104.0 92.7 FINAL Abdulkadir weinberg [facility] - [place], [address] [place] [id number] 0 Phone: () - 08/03 CBC w/ auto diff MCH pg 26.0 35.0 29.5 FINAL Abdulkadir weinberg [facility] - [place], [address] [place] [id number] 0 Phone: () - 08/03 CBC w/ auto diff MCHC g/dL 30.0 35.0 31.9 FINAL Abdulkadir weinberg [facility] - [place], [address] [place] [id number] 0 Phone: () - 08/03 CBC w/ auto diff MPV fL 9.5 13.4 10.4 FINAL Abdulkadir weinberg [facility] - [place], [address] [facility] [address] [address] [place] [id number] 0 Phone: () - 08/03 CBC w/ auto diff RDW % 11.3 15.6 15.30 FINAL Abdulkadir weinberg [facility] - [place], [address] [facility] [facility] [address] [place] [id number] 0 Phone: () - 11/02 PSA diagn ostic panel PSA ng/ml 0.0 4.0 PSA less than 0.05 Test performed at [facility] on a Viragenass ay Analyzer that uses an immunoenz ymometric sandwich assay for analysis. Patient testing should not be performed using multiple methodunruly plaza due to analytica l variation seen between test methodunruly plaza. FINAL Abdulkadir Jaime Rajaneddie weinberg [facility] - [place], [address] [place] [id number] 0 Phone: () - 11/02 CBC w/ auto diff WBC K/uL 3.0 8.9 4.8 FINAL Abdulkadir Jaime Rajanot a [facility] - [place], [address] [place] [id number] 0 Phone: () - 11/02 CBC w/ auto diff HGB g/dL 12.5 16.6 9.7 Low FINAL Abdulkadir Jaime Rajanot a [facility] - [place], [address] [place] [id number] 0 Phone: () - 11/02 CBC w/ auto diff PLT K/uL 113.0 364.0 244 FINAL Abdulkadir Jaime Rajanot a [facility] - [place], [address] [place] [id number] 0 Phone: () - 11/02 CBC w/ auto diff Cayetano # (ANC) K/uL 1.6 6.6 2.1 FINAL Abdulkadir Jaime Rajanot a [facility] - [place], [address] [place] [id number] 0 Phone: () - 11/02 CBC w/ auto diff Cayetano % % 43.0 74.0 44.9 FINAL Abdulkadirshell Campbell a [facility] - [place], [address] [place] [id number] 0 Phone: () - 11/02 CBC w/ auto diff IG % % 0.0 0.5 0.2 FINAL Abdulkadir Jaime Rajanot a [facility] - [place], [address] [place] [id number] 0 Phone: () - 11/02 CBC w/ auto diff IG # K/uL 0.0 0.03 0.01 FINAL Abdulkadir Jaime Rajanot a [facility] - [place], [address] [place] [id number] 0 Phone: () - 11/02 CBC w/ auto diff LY % % 14.0 41.0 37.5 FINAL Abdulkadir Jaime Rajanot a [facility] - [place], [address] [place] [id number] 0 Phone: () - 11/02 CBC w/ auto diff MO % % 6.0 15.0 12.8 FINAL Abdulkadir Jaime Rajanot a [facility] - [place], [address] [place] [id number] 0 Phone: () - 11/02 CBC w/ auto diff EO % % 0.0 7.0 4.0 FINAL Abdulkadir Jaime Rajanot a [facility] - [place], [address] [place] [id number] 0 Phone: () - 11/02 CBC w/ auto diff BA % % 0.0 2.0 0.6 FINAL Abdulkadir Jaime Rajanot a [facility] - [place], [address] [place] [id number] 0 Phone: () - 11/02 CBC w/ auto diff LY # K/uL 0.4 3.6 1.8 FINAL Abdulkadir Jaime Rajanot a [facility] - [place], [address] [place] [id number] 0 Phone: () - 11/02 CBC w/ auto diff MO # K/uL 0.2 1.3 0.6 FINAL Abdulkadir Jaime Rajanot a [facility] - [place], [address] [place] [id number] 0 Phone: () - 11/02 CBC w/ auto diff EO # K/uL 0.0 0.6 0.2 FINAL Abdulkadir Jaime Rajanot a [facility] - [place], [address] [place] [id number] 0 Phone: () - 11/02 CBC w/ auto diff BA # K/uL 0.0 0.2 0.0 FINAL Abdulkadir Jaime Rajanot a [facility] - [place], [address] [place] [id number] 0 Phone: () - 11/02 CBC w/ auto diff NRBC % #/100W BC 0.0 0.2 0.0 FINAL Abdulkadir Jaime Rajanot a [facility] - [place], [address] [place] [id number] 0 Phone: () - 11/02 CBC w/ auto diff RBC M/uL 4.2 5.6 3.50 Low FINAL Abdulkadir Jaime Rajanot a [facility] - [place], [address] [place] [id number] 0 Phone: () - 11/02 CBC w/ auto diff HCT % 39.0 49.0 30.8 Low FINAL Abdulkadir Jaime Rajanot a [facility] - [place], [address] [place] [id number] 0 Phone: () - 11/02 CBC w/ auto diff MCV fL 80.0 104.0 88.0 FINAL Abdulkadir Sandovalbrody Rajanot a [facility] - [place], [address] [place] [id number] 0 Phone: () - 11/02 CBC w/ auto diff MCH pg 26.0 35.0 27.7 FINAL Abdulkadir Sandovalbrody Rajanot a [facility] - [place], [address] [place] [id number] 0 Phone: () - 11/02 CBC w/ auto diff MCHC g/dL 30.0 35.0 31.5 FINAL Badulkadir Jaime Rajanot a [facility] - [place], [address] [place] [id number] 0 Phone: () - 11/02 CBC w/ auto diff MPV fL 9.5 13.4 10.3 FINAL Abdulkadir Jaime Rajanot a [facility] - [place], [address] [place] [id number] 0 Phone: () - 11/02 CBC w/ auto diff RDW % 11.3 15.6 14.50 FINAL [facility] Sand[facility], [address] [facility] [id number] 0 Phone: () - 11/02 CMP Album in g/dL 3.2 5.2 4.0 FINAL [place] [address] [place] [address] [id number] 0 Phone: () - 11/02 CMP Alkal ine phosp hatas e U/L 46.0 116.0 106 FINAL [place] [address] [place] [address] [id number] 0 Phone: () - 11/02 CMP ALT/S GPT U/L 7.0 40.0 14 FINAL [place] [address] [address] [facility] [address] [place] [address] [id number] Phone: () - 11/02 CMP AST/S GOT U/L 13.0 40.0 25 FINAL [place] [address] [address] [facility] [address] [place] [address] [id number] 0 Phone: () - 11/02 CMP BUN mg/dL 9.0 23.0 20.0 FINAL [place] [address] [facility] [address] [place] [address] [id number] 0 Phone: () - 11/02 CMP Calci um mg/dL 8.7 10.4 9.5 FINAL [place] [address] [address] [facility] [address] [place] [address] [id number] 0 Phone: () - 11/02 CMP Chlor narinder mmol/L 96.0 114.0 109 FINAL [place] [address] [address] [facility] [address] [id number] 0 Phone: () - 11/02 CMP CO2 [...] of the 96 hour stability window. FINAL [place] [address] [id number] 0 Phone: () - 11/02 CMP Creat inine mg/dL 0.5 1.2 1.07 FINAL [place] [address] [id number] 0 Phone: () - 11/02 CMP GFR estim ate ml/min /1.73m ^2 68.0 GFR is calculate d using the CKD-EPI equation. FINAL [address] [id number] 0 Phone: () - 11/02 CMP Gluco se mg/dL 73.0 126.0 84 FINAL [place] [address] [id number] 0 Phone: () - 11/02 CMP Potas sium mmol/L 3.5 5.1 4.0 FINAL [place] [address] [id number] 0 Phone: () - 11/02 CMP Sodiu m mmol/L 136.0 145.0 145 FINAL [place] [address] [id number] 0 Phone: () - 11/02 CMP Bilir ubin, total mg/dL 0.3 1.2 0.4 FINAL [place] [address] [id number] 0 Phone: () - 11/02 CMP Total prote in g/dL 5.7 8.2 6.3 FINAL [place] [address] [id number] 0 Phone: () - 11/08 Di tin panel Di tin NG/ML 27.0 300.0 7.90 Low FINAL [facility], [address] [facility] [address] [facility] [id number] 0 Phone: () - 11/08 Iron profi le TIBC ug/dL 250.0 425.0 385 FINAL [facility] [address] [facility] [address] [facility] [id number] 0 Phone: () - 11/08 Iron profi le Iron ug/dL 50.0 175.0 42 Low FINAL [facility], [address] [facility] [address] [facility] [id number] 0 Phone: () - 11/08 Iron profi le Unbou nd iron capac ity ug/dL 75.0 410.0 343 FINAL [facility], [address] [facility] [address] [place] [address] [id number] 0 Phone: () - 11/08 Iron profi le Iron, % satur ation % 20.0 55.0 11 Low FINAL [facility], [address] [facility] [address] [place] [address] [id number] Phone: () - 11/08 Vitam in B12 panel Vitam in B12 pg/mL 230.0 1050.0 879 Test performed at [facility]. [address] [facility] [place] [address] FINAL [facility], [address] [facility] [address] [place] [address] [id number] 0 Phone: () - 11/08 Folat e panel Folat e, serum ng/mL 3.0 16.0 Folate greater than 20 FINAL [facility], [address] [facility] [address] [place] [address] [id number] 0 Phone: () - 11/08 Immun oglob ulin measu remen t IgG, quant mg/dL 610.0 1616.0 649.53 Test performed at [facility] on a Binding Site Optilite Analyzer that uses a turbidime tric method for analysis. Patient testing should not be performed using multiple methodolo girandee due to analytica l variation seen between test methodolo gies. FINAL Abdulkadirshell weinberg [facility], [address] [facility] [id number] 0 Phone: () - 11/08 Immun oglob ulin measu remen t IgA, quant mg/dL 61.0 348.0 214.98 Test performed at [facility] on a Binding Site Optilite Analyzer that uses a turbidime tric method for analysis. Patient testing should not be performed using multiple methodolo gies due to analytica l variation seen between test methodolo gies. FINAL Abdulkadir Jaime weinberg [facility], [address] [facility] [address] [facility] [id number] 0 Phone: () - 11/08 Immun oglob ulin measu remen t IgM, quant mg/dL 35.0 242.0 43.44 Test performed at [facility] on a Binding Site Optilite Analyzer that uses a turbidime tric method for analysis. Patient testing should not be performed using multiple methodolo gies due to analytica l variation seen between test methodolo gies. FINAL Abdulkadirshell weinberg [facility], [address] [facility] [address] [facility] [id number] 0 Phone: () - 11/08 WBC K/uL 3.0 8.9 4.5 FINAL Abdulkadirshell Campbell a [facility] [place], [address] [place] [address] d [address] [facility] [id number] 0 Phone: () - 11/08 HGB g/dL 12.5 16.6 9.7 Low FINAL Abdulkadirshell Campbell a [facility] [place], [address] [place] [address] d [address] [place] [id number] 0 Phone: () - 11/08 PLT K/uL 113.0 364.0 225 FINAL Abdulkadirshell Rajanot a [facility] - [place], [address] [place] [address] [facility] [address] [address] [place] [facility] [id number] 0 Phone: () - 11/08 Cayetano % % 43.0 74.0 44.8 FINAL Abdulkadirshell Campbell a [facility] - [place], [address] [place] [id number] 0 Phone: () - 11/08 Cayetano # (ANC) K/uL 1.6 6.6 2.0 FINAL Abdulkadir Jaime Rajanot a [facility] - [place], [address] [place] [id number] 0 Phone: () - 11/08 IG % % 0.0 0.5 0.2 FINAL Abdulkadir Jaime Rajanot a [facility] - [place], [address] [place] [id number] 0 Phone: () - 11/08 IG # K/uL 0.0 0.03 0.01 FINAL Abdulkadir Jaime [facility]ot [facility] - [place], [address] [place] [id number] 0 Phone: () - 11/08 LY % % 14.0 41.0 37.8 FINAL Abdulkadir Sandovalbrody Rajanot a [facility] - [place], [address] [place] [id number] 0 Phone: () - 11/08 MO % % 6.0 15.0 13.0 FINAL Abdulkadirshell Rajanot a [facility] - [place], [address] [place] [id number] 0 Phone: () - 11/08 EO % % 0.0 7.0 3.8 FINAL Abdulkadir Jaime Rajanot a [facility] - [place], [address] [place] [id number] 0 Phone: () - 11/08 BA % % 0.0 2.0 0.4 FINAL Abdulkadir Jaime [facility]ot [facility] - [place], [address] [place] [id number] 0 Phone: () - 11/08 LY # K/uL 0.4 3.6 1.7 FINAL Abdulkadir Sandovalbrody Rajanot a [facility] - [place], [address] [place] [id number] 0 Phone: () - 11/08 MO # K/uL 0.2 1.3 0.6 FINAL Abdulkadir Jaime [facility]ot [facility] - [place], [address] [place] [id number] 0 Phone: () - 11/08 EO # K/uL 0.0 0.6 0.2 FINAL Abdulkadir Jaime [facility]ot [facility] - [place], [address] [place] [id number] 0 Phone: () - 11/08 BA # K/uL 0.0 0.2 0.0 FINAL Abdulkadir Jaime [facility]ot [facility] - [place], [address] [place] [id number] 0 Phone: () - 11/08 NRBC % #/100W BC 0.0 0.2 0.0 FINAL Abdulkadir Jaime [facility]ot [facility] - [place], [address] [place] [id number] 0 Phone: () - 11/08 RBC M/uL 4.2 5.6 3.57 Low FINAL Abdulkadir Jaime [facility]ot [facility] - [place], [address] [place] [id number] 0 Phone: () - 11/08 HCT % 39.0 49.0 31.0 Low FINAL Abdulkadir Jaime [facility]anot [facility] - [place], [address] [place] [id number] 0 Phone: () - 11/08 MCV fL 80.0 104.0 86.8 FINAL Abdulkadir Jaime [facility]ot [facility] - [place], [address] [place] [id number] 0 Phone: () - 11/08 MCH pg 26.0 35.0 27.2 FINAL Abdulkadir Sandoval [place] [facility] [place], [address] [place] [id number] 0 Phone: () - 11/08 MCHC g/dL 30.0 35.0 31.3 FINAL Abdulkadir Jaime Campbell [facility] - [place], [address] [facility] [address] [place] [id number] 0 Phone: () - 11/08 MPV fL 9.5 13.4 10.6 FINAL Abdulkadir Jaime [facility] - [place], [address] [place] [id number] 0 Phone: () - 11/08 RDW % 11.3 15.6 14.60 FINAL Abdulkadir Jaime Campbell [facility] - [place], [address] [facility] [address] [place] [id number] 0 Phone: () - 11/08 Retic ulocy te, absol united keetoowah M/uL 0.01 0.1 0.07 FINAL Abdulkadir Jaime [facility] - [place], [address] [place] [id number] 0 Phone: () - 11/08 Retic ulocy te count % 0.2 1.7 2.04 High FINAL Abdulkadir Jaime [facility] - [place], [address] [place] [id number] 0 Phone: () - 11/08 Immat ure retic ulocy te fract ion, % % 0.0 18.8 23.00 High FINAL Abdulkadir Jaime [facility] - [place], [address] [place] [id number] 0 Phone: () - 11/08 Retic ulocy te cellu lar hemog lobin pg 28.0 37.0 29.0 FINAL Abdulkadir Jaime Campbell [facility] - [place], [address] [address] [place] [id number] 0 Phone: () - 11/08 Immun ofixa tion, serum w/ quant IgG/A /M panel Immun ofixa tion, serum , inter preta tion No monoclo nal peaks detecte d. Interpr eted and signed by Jimenez underwood MD on 023 FINAL Abdulkadir Rajan [facility] - [place], [address] [facility] [id number] 0 Phone: () - 11/08 Path perip heral blood slide revie w panel Patho logy/ Cytol ogy Morph ology SEE RESULTS BELOW CASE REPORTSpe cial Hematolog y Report Case: [id number] 5Authoriz ing Provider: Abdulkadir Sandoval MBBS Collected :11/08/20 23 [id number] ing Location: [facility] Received: 3 2151Patho logist: Blake [...] AND DIFFERENT IALHEMATO LOGY PARAMETER STested at: [facility] [place] eRESULTS EXPECTED VALUESWBC [...] microscop ic examinati on of an appropria [facility] ed blood smear.ADD ITIONAL INFORMATI ONInterpr eted at [facility], [facility] - [address], [place] [address] FINAL Abdulkadir Sandoval 01/28 PSA diagn ostic panel PSA ng/mL 0.0 3.9 <0.06 Test performed at [facility] on a [employer] Immunoass ay Analyzer that uses an immunomet yuko immunoass ay technique . Patient testing should not be performed using multiple methodunruly plaza due to analytica l variation seen between test methodunruly plaza. FINAL Abdulkadir Jaime * Adrian [facility] - [place], [address] [facility] [place] [id number] 0 01/28 CBC w/ auto diff WBC K/uL 3.0 8.9 4.8 FINAL Abdulkadirshell Rajanot a [facility] - [place], [address] [facility] [place] [id number] 0 Phone: () - 01/28 CBC w/ auto diff HGB g/dL 12.5 16.6 12.6 FINAL Abdulkadirshell Rajanot a [facility] - [place], [address] [place] [id number] 0 Phone: () - 01/28 CBC w/ auto diff PLT K/uL 113.0 364.0 155 FINAL Abdulkadirshell [facility] [place], [address] [place] [id number] 0 Phone: () - 01/28 CBC w/ auto diff Cayetano # (ANC) K/uL 1.6 6.6 2.7 FINAL Abdulkadirshell [facility] - [place], [address] [place] [phone] 0 Phone: () - 01/28 CBC w/ auto diff Cayetano % % 43.0 74.0 54.7 FINAL Abdulkadirshell Campbell [facility] - [place], [address] [place] [id number] 0 Phone: () - 01/28 CBC w/ auto diff IG % % 0.0 0.5 0.2 FINAL Abdulkadirshell Campbell [facility] - [place], [address] [place] [id number] 0 Phone: () - 01/28 CBC w/ auto diff IG # K/uL 0.0 0.03 0.01 FINAL Abdulkadirshell [facility] - [place], [address] [place] [id number] 0 Phone: () - 01/28 CBC w/ auto diff LY % % 14.0 41.0 33.1 FINAL Abdulkadirshell aRjanot a [facility] - [place], [address] [place] [id number] 0 Phone: () - 01/28 CBC w/ auto diff MO % % 6.0 15.0 8.5 FINAL Abdulkadirshell [facility] - [place], [address] [place] [id number] 0 Phone: () - 01/28 CBC w/ auto diff EO % % 0.0 7.0 3.1 FINAL Abdulkadir Jaime [facility] [place], [address] [place] [id number] 0 Phone: () - 01/28 CBC w/ auto diff BA % % 0.0 2.0 0.4 FINAL Abdulkadir Jaime [facility] [place], [address] [place] [id number] 0 Phone: () - 01/28 CBC w/ auto diff LY # K/uL 0.4 3.6 1.6 FINAL Abdulkadir Jaime [facility] [place], [address] [place] [id number] 0 Phone: () - 01/28 CBC w/ auto diff MO # K/uL 0.2 1.3 0.4 FINAL Abdulkadir Jaime Campbell [facility] - [place], [address] [place] [id number] 0 Phone: () - 01/28 CBC w/ auto diff EO # K/uL 0.0 0.6 0.2 FINAL Abdulkadir Jaime [facility] - [place], [address] [place] [id number] 0 Phone: () - 01/28 CBC w/ auto diff BA # K/uL 0.0 0.2 0.0 FINAL Abdulkadir Jaime [facility] [place], [address] [place] [id number] 0 Phone: () - 01/28 CBC w/ auto diff NRBC % #/100W BC 0.0 0.2 0.0 FINAL Abdulkadir Jaime [facility] [place], [address] [place] [phone] 0 Phone: () - 01/28 CBC w/ auto diff RBC M/uL 4.2 5.6 4.25 FINAL Abdulkadir Jaime [facility] [place], [address] [place] [id number] 0 Phone: () - 01/28 CBC w/ auto diff HCT % 39.0 49.0 39.6 FINAL Abdulkadir Jaime [facility] [place], [address] [place] [id number] 0 Phone: () - 01/28 CBC w/ auto diff MCV fL 80.0 104.0 93.2 FINAL Abdulkadir Jaime [facility] [place], [address] [place] [id number] 0 Phone: () - 01/28 CBC w/ auto diff MCH pg 26.0 35.0 29.6 FINAL Abdulkadir Sandovalbrody [facility] - [place], [address] [place] [id number] 0 Phone: () - 01/28 CBC w/ auto diff MCHC g/dL 30.0 35.0 31.8 FINAL Abdulkadir Jaime [facility] [place], [address] [place] [id number] 0 Phone: () - 01/28 CBC w/ auto diff MPV fL 9.5 13.4 10.5 FINAL Abdulkadir Sandoval [facility] [place], [address] [place] [id number] 0 Phone: () - 01/28 CBC w/ auto diff RDW % 11.3 15.6 15.90 High FINAL Abdulkadir Sandoval [facility] [place], [address] [place] [id number] 0 Phone: () - 01/28 CMP Album in g/dL 3.5 5.0 3.8 FINAL Abdulkadir Jaime * [place] [facility] [place], [address] [facility] [place] [id number] 0 01/28 CMP Alkal ine phosp hatas e U/L 36.0 125.0 105 FINAL Abdulkadir Sandoval * [facility], [address] [facility] [id number] 0 01/28 CMP ALT/S GPT U/L 0.0 49.0 23 FINAL Abdulkadir Sandoval * [facility], [address] [facility] [id number] 0 01/28 CMP AST/S GOT U/L 17.0 59.0 36 FINAL Abdulkadir Sandoval * [facility], [address] [id number] 0 01/28 CMP BUN mg/dL 9.0 20.0 23.0 High FINAL Abdulkadir Sandoval * [facility], [address] [id number] 0 01/28 CMP Calci um mg/dL 8.4 10.2 9.8 FINAL Abdulkadir Sandoval * [facility], [address] [id number] 0 01/28 CMP Chlor narinder mmol/L 96.0 107.0 110 High FINAL Abdulkadir Sandoval * [facility], [address] [facility] [id number] 0 01/28 CMP CO2 mmol/L 22.0 30.0 [...] window. FINAL Abdulkadir Sandoval * [facility], [address] [facility] [address] [id number] 0 01/28 CMP Creat inine mg/dL 0.66 1.25 1.00 FINAL Abdulkadir Sandoval * [facility], [facility] [address] [id number] 0 01/28 CMP GFR estim ate ml/min /1.73m ^2 73.6 GFR is calculate d using the CKD-EPI equation. FINAL Abdulkadir Sandoval * [facility], [facility] [address] [place] [address] [id number] 0 01/28 CMP Gluco se mg/dL 74.0 100.0 104 High FINAL Abdulkadir Sandoval * [facility], [facility] [address] [id number] 0 01/28 CMP Potas sium mmol/L 3.5 5.1 4.1 FINAL Abdulkadir Sandoval * [facility], [facility] [address] [place] [address] [id number] 0 01/28 CMP Sodiu m mmol/L 137.0 145.0 141 FINAL Abdulkadir Sandoval * [facility], [address] [id number] 0 01/28 CMP Bilir ubin, total mg/dL 0.2 1.3 0.7 FINAL Abdulkadir Sandoval * [facility], [facility] [address] [id number] 0 01/28 CMP Total prote in g/dL 6.3 8.2 6.5 FINAL Abdulkadir Sandoval * [facility], [address] [facility] [place] [id number] 0 05/16 Di tin panel Di tin ng/mL 17.9 464.0 21.90 FINAL Abdulkadir Jaime * [facility] [place], [address] [facility] [place] [id number] 0 05/16 CBC w/ auto diff WBC K/uL 3.0 8.9 5.4 FINAL Abdulkadir Jaime [facility] [place], [address] [place] [id number] 0 Phone: () - 05/16 CBC w/ auto diff HGB g/dL 12.5 16.6 12.6 FINAL Abdulkadir Jaime [facility] [place], [address] [place] [id number] 0 Phone: () - 05/16 CBC w/ auto diff PLT K/uL 113.0 364.0 222 FINAL Abdulkadir Jaime [facility] [place], [address] [place] [id number] 0 Phone: () - 05/16 CBC w/ auto diff Cayetano # (ANC) K/uL 1.6 6.6 3.1 FINAL Abdulkadir Jaime [facility] [place], [address] [place] [id number] 0 Phone: () - 05/16 CBC w/ auto diff Cayetano % % 43.0 74.0 56.8 FINAL Abdulkadir Jaime [facility] [place], [address] [place] [id number] 0 Phone: () - 05/16 CBC w/ auto diff IG % % 0.0 0.5 0.2 FINAL Abdulkadir Jaime [facility] [place], [address] [place] [id number] 0 Phone: () - 05/16 CBC w/ auto diff IG # K/uL 0.0 0.03 0.01 FINAL Abdlukadir Jaime Campbell [facility] - [place], [address] [place] [id number] 0 Phone: () - 05/16 CBC w/ auto diff LY % % 14.0 41.0 32.5 FINAL Abdulkadir Jaime [facility] [place], [address] [place] [id number] 0 Phone: () - 05/16 CBC w/ auto diff MO % % 6.0 15.0 7.5 FINAL Abdulkadir Jaime [facility] [place], [address] [place] [id number] 0 Phone: () - 05/16 CBC w/ auto diff EO % % 0.0 7.0 2.4 FINAL Abdulkadir Jaime [facility] - [place], [address] [place] [id number] 0 Phone: () - 05/16 CBC w/ auto diff BA % % 0.0 2.0 0.6 FINAL Abdulkadirshell Campbell [facility] - [place], [address] [place] [id number] 0 Phone: () - 05/16 CBC w/ auto diff LY # K/uL 0.4 3.6 1.7 FINAL Abdulkadir Jaime [facility] - [place], [address] [place] [id number] 0 Phone: () - 05/16 CBC w/ auto diff MO # K/uL 0.2 1.3 0.4 FINAL Abdulkadir Jaime [facility] - [place], [address] [place] [id number] 0 Phone: () - 05/16 CBC w/ auto diff EO # K/uL 0.0 0.6 0.1 FINAL Abdulkadir Jaime [facility] [place], [address] [place] [id number] 0 Phone: () - 05/16 CBC w/ auto diff BA # K/uL 0.0 0.2 0.0 FINAL Abdulkadir Jaime [facility] [place], [address] [place] [id number] 0 Phone: () - 05/16 CBC w/ auto diff NRBC % #/100W BC 0.0 0.2 0.0 FINAL Abdulkadir Jaime [facility] [place], [address] [place] [id number] 0 Phone: () - 05/16 CBC w/ auto diff RBC M/uL 4.2 5.6 3.94 Low FINAL Abdulkadir Jaime [facility] [place], [address] [place] [id number] 0 Phone: () - 05/16 CBC w/ auto diff HCT % 39.0 49.0 38.5 Low FINAL Abdulkadir Jaime [facility] [place], [address] [place] [id number] 0 Phone: () - 05/16 CBC w/ auto diff MCV fL 80.0 104.0 97.7 FINAL Abdulkadir Jaime [facility] [place], [address] [place] [id number] 0 Phone: () - 05/16 CBC w/ auto diff MCH pg 26.0 35.0 32.0 FINAL Abdulkadir Jaime [facility] [place], [address] [place] [id number] 0 Phone: () - 05/16 CBC w/ auto diff MCHC g/dL 30.0 35.0 32.7 FINAL Abdulkadir Jaime [facility] [place], [address] [place] [id number] 0 Phone: () - 05/16 CBC w/ auto diff MPV fL 9.5 13.4 10.3 FINAL Abdulkadir Sandoval [facility] [place], [address] [facility] [address] [place] [id number] 0 Phone: () - 05/16 CBC w/ auto diff RDW % 11.3 15.6 13.10 FINAL Abdulkadir Sandoval [facility] [place], [address] [facility] [address] [facility] [id number] 0 Phone: () - 05/16 CMP Album in g/dL 3.5 5.0 4.2 FINAL Abdulkadir Sadnoval * [facility], [facility] [address] [id number] 0 05/16 CMP Alkal ine phosp hatas e U/L 36.0 125.0 104 FINAL Abdulkadir Sandoval * [facility], [facility] [address] [id number] 0 05/16 CMP ALT/S GPT U/L 0.0 49.0 19 FINAL Abdulkadir Sandoval * [facility], [facility] [address] [place] [address] [id number] 0 05/16 CMP AST/S GOT U/L 17.0 59.0 39 FINAL Abdulkadir Sandoval * [facility], [facility] [address] [id number] 0 05/16 CMP BUN mg/dL 9.0 20.0 23.0 High FINAL Abdulkadir Sandoval * [facility] a [facility], [facility] [address] [id number] 0 05/16 CMP Calci um mg/dL 8.4 10.2 9.3 FINAL Abdulkadir Sandoval * [facility], [facility] [address] [id number] 0 05/16 CMP Chlor narinder mmol/L 96.0 107.0 104 FINAL Abdulkadir weinberg [facility], [address] [facility] [address] [facility] [id number] 0 05/16 CMP CO2 mmol/L 22.0 30.0 [...] hour stability window. FINAL Abdulkadir Rajan sultana [facility], [facility] [address] [id number] 0 05/16 CMP Creat inine mg/dL 0.66 1.25 1.00 FINAL Abdulkadir weinberg [facility], [address] [id number] 0 05/16 CMP GFR estim ate ml/min /1.73m ^2 73.5 GFR is calculate d using the CKD-EPI equation. FINAL Abdulkadir Rajan sultana [facility], [address] [facility] [address] [id number] 0 05/16 CMP Gluco se mg/dL 74.0 100.0 71 Low FINAL Abdulkadir Rajan a [facility], [address] [facility] [address] [facility] [id number] 0 05/16 CMP Potas sium mmol/L 3.5 5.1 4.2 FINAL Abdulkadir Rajan a [facility], [address] [facility] [address] [id number] 0 05/16 CMP Sodiu m mmol/L 137.0 145.0 141 FINAL Abdulkadir Sandoval * [facility], [facility] [address] [place] [address] [id number] 0 05/16 CMP Bilir ubin, total mg/dL 0.2 1.3 0.3 FINAL Abdulkadir Jaime * [facility], [facility] [address] [id number] 0 05/16 CMP Total prote in g/dL 6.3 8.2 6.7 FINAL Abdulkadir Jaime * [address] [place] [address] [id number] 0 05/16 PSA diagn ostic panel PSA ng/mL 0.0 3.9 0.08 Test performed at [facility] on a [employer] [address] [employer] ay Analyzer that uses an immunomet yuko immunoass ay technique . Patient testing should not be performed using multiple methodolo gies due to analytica l variation seen between test methodolo gies. FINAL Abdulkadir Sandoval * [address] [place] [address] [id number] 0 08/05 PSA diagn ostic panel PSA ng/ml 0.0 3.9 <0.06 Repeate d Test performed at [facility] on a [address] [employer] ay Analyzer that uses an immunomet yuko immunoass ay technique . Patient testing should not be performed using multiple methodolo gies due to analytica l variation seen between test methodolo gies. FINAL Abdulkadir Sandoval * [facility], [address] [place] [address] [place] [address] [id number] 0 08/05 Di tin panel Di tin ng/mL 17.9 464.0 20.90 FINAL Abdulkadir Sandoval * [facility], [address] [facility] [id number] 08/05 CMP Album in g/dL 3.5 5.0 3.8 FINAL Abdulkadir Sandoval * [facility], [address] [facility] [id number] 0 08/05 CMP Alkal ine phosp hatas e U/L 36.0 125.0 127 High FINAL Abdulkadir Sandoval * [facility], [address] [facility] [id number] 0 08/05 CMP ALT/S GPT U/L 0.0 49.0 18 FINAL Abdulkadir Sandoval * [facility], [address] [facility] [id number] 0 08/05 CMP AST/S GOT U/L 17.0 59.0 32 FINAL Abdulkadir Sandoval * [facility], [address] [facility] [id number] 0 08/05 CMP BUN mg/dL 9.0 20.0 27.0 High FINAL Abdulkadir Sandoval * [facility], [address] [facility] [id number] 0 08/05 CMP Calci um mg/dL 8.4 10.2 9.5 FINAL Abdulkadir Sandoval * [facility], [address] [facility] [id number] 0 08/05 CMP Chlor narinder mmol/L 96.0 107.0 108 High FINAL Abdulkadir Sandoval * [facility], [address] [facility] [id number] 0 08/05 CMP CO2 mmol/L 22.0 30.0 [...] hour stability window. FINAL Abdulkadir Jaime * [facility], [address] [facility] [address] [id number] 0 08/05 CMP Creat inine mg/dL 0.66 1.25 1.00 FINAL Abdulkadir Jaime * [facility], [facility] [address] [id number] 0 08/05 CMP GFR estim ate ml/min /1.73m ^2 73.4 GFR is calculate d using the CKD-EPI equation. FINAL Abdulkadir Jaime * [facility], [address] [facility] [address] [id number] 0 08/05 CMP Gluco se mg/dL 74.0 100.0 119 High FINAL Abdulkadir Jaime * [facility], [address] [facility] [address] [id number] 0 08/05 CMP Potas sium mmol/L 3.5 5.1 3.8 FINAL Abdulkadir Jaime * [facility], [address] [id number] 0 08/05 CMP Sodiu m mmol/L 137.0 145.0 140 FINAL Abdulkadir Jaime * [facility], [address] [id number] 0 08/05 CMP Bilir ubin, total mg/dL 0.2 1.3 0.4 FINAL Abdulkadir Jaime * [facility] [place], [address] [facility] [place] [id number] 0 08/05 CMP Total prote in g/dL 6.3 8.2 6.6 FINAL Abdulkadir Jaime * [place] [facility] [place], [address] [facility] [place] [id number] 0 08/05 CBC w/ auto diff WBC K/uL 3.0 8.9 5.6 FINAL Abdulkadir Jaime [facility] [place], [address] [place] [id number] 0 Phone: () - 08/05 CBC w/ auto diff HGB g/dL 12.5 16.6 10.9 Low FINAL Abdulkadir Jaime [facility] [place], [address] [place] [id number] 0 Phone: () - 08/05 CBC w/ auto diff PLT K/uL 113.0 364.0 192 FINAL Abdulkadir Jaime [facility] [place], [address] [place] [id number] 0 Phone: () - 08/05 CBC w/ auto diff Cayetano # (ANC) K/uL 1.6 6.6 3.3 FINAL Abdulkadir Jaime [facility] [place], [address] [place] [id number] 0 Phone: () - 08/05 CBC w/ auto diff Cayetano % % 43.0 74.0 58.6 FINAL Abdulkadir Jaime [facility] [place], [address] [place] [id number] 0 Phone: () - 08/05 CBC w/ auto diff IG % % 0.0 0.5 0.2 FINAL Abdulkadir Jaime [place] [facility] [place], [address] [place] [id number] 0 Phone: () - 08/05 CBC w/ auto diff IG # K/uL 0.0 0.03 0.01 FINAL Abdulkadirshell weinberg [facility] - [place], [address] [place] [id number] 0 Phone: () - 08/05 CBC w/ auto diff LY % % 14.0 41.0 22.7 FINAL Abdulkadirshell Campbell [facility] - [place], [address] [place] [id number] 0 Phone: () - 08/05 CBC w/ auto diff MO % % 6.0 15.0 9.4 FINAL Abdulkadirshell Campbell [facility] - [place], [address] [place] [id number] 0 Phone: () - 08/05 CBC w/ auto diff EO % % 0.0 7.0 8.6 High FINAL Abdulkadirshell Campbell [facility] - [place], [address] [place] [id number] 0 Phone: () - 08/05 CBC w/ auto diff BA % % 0.0 2.0 0.5 FINAL Abdulkadir weinberg [facility] - [place], [address] [place] [id number] 0 Phone: () - 08/05 CBC w/ auto diff LY # K/uL 0.4 3.6 1.3 FINAL Abdulkadirshell weinberg [facility] - [place], [address] [place] [id number] 0 Phone: () - 08/05 CBC w/ auto diff MO # K/uL 0.2 1.3 0.5 FINAL Abdulkadir Campbell [facility] - [place], [address] [place] [id number] 0 Phone: () - 08/05 CBC w/ auto diff EO # K/uL 0.0 0.6 0.5 FINAL Abdulkadir Sandoval [place] [facility] [place], [address] [place] [id number] 0 Phone: () - 08/05 CBC w/ auto diff BA # K/uL 0.0 0.2 0.0 FINAL Abdulkadir Jaime [facility] [place], [address] [place] [id number] 0 Phone: () - 08/05 CBC w/ auto diff NRBC % #/100W BC 0.0 0.2 0.0 FINAL Abdulkadir Jaime [facility] [place], [address] [place] [id number] 0 Phone: () - 08/05 CBC w/ auto diff RBC M/uL 4.2 5.6 3.43 Low FINAL Abdulkadir Jaime [facility] [place], [address] [place] [id number] 0 Phone: () - 08/05 CBC w/ auto diff HCT % 39.0 49.0 32.7 Low FINAL Abdulkadir Jaime [facility] [place], [address] [place] [id number] 0 Phone: () - 08/05 CBC w/ auto diff MCV fL 80.0 104.0 95.3 FINAL Abdulkadir Jaime [facility] [place], [address] [place] [id number] 0 Phone: () - 08/05 CBC w/ auto diff MCH pg 26.0 35.0 31.8 FINAL Abdulkadir Jaime [facility] [place], [address] [place] [id number] 0 Phone: () - 08/05 CBC w/ auto diff MCHC g/dL 30.0 35.0 33.3 FINAL Abdulkadir Jaime [facility] [place], [address] [place] [id number] 0 Phone: () - 08/05 CBC w/ auto diff MPV fL 9.5 13.4 10.3 FINAL Abdulkadir Jaime [facility], [address] [facility] [address] [facility] [id number] 0 Phone: () - 08/05 CBC w/ auto diff RDW % 11.3 15.6 13.40 FINAL Abdulkadir Jaime [facility], [address] [address] [facility] [place] [id number] 0 Phone: () - 11/17 CMP Album in g/dL 3.5 5.0 4.2 FINAL Abdulkadir Sandoval * [facility] , [address] [id number] 0 11/17 CMP Alkal ine phosp hatas e U/L 36.0 125.0 118 FINAL Abdulkadir Sandoval * [facility] , [address] [id number] 0 11/17 CMP ALT/S GPT U/L 0.0 49.0 20 FINAL Abdulkadir Sandoval * [facility] , [address] [id number] 0 11/17 CMP AST/S GOT U/L 17.0 59.0 39 FINAL Abdulkadir Sandoval * [facility] , [address] [id number] 0 11/17 CMP BUN mg/dL 9.0 20.0 30.0 High FINAL Abdulkadir Sandoval * [facility] , [address] [id number] 0 11/17 CMP Calci um mg/dL 8.4 10.2 9.6 FINAL Abdulkadir Sandoval * [facility] , [address] [facility] [id number] 0 11/17 CMP Chlor narinder mmol/L 96.0 107.0 104 FINAL Abdulkadir Jaime * [facility] [facility] , [address] [facility] [address] [facility] [id number] 0 11/17 CMP CO2 mmol/L 22.0 30.0 [...] hour stability window. FINAL Abdulkadir Sandoval * [facility] , [address] [facility] [address] [facility] [id number] 0 11/17 CMP Creat inine mg/dL 0.66 1.25 1.00 FINAL Abdulkadir Jaime * [facility] , [address] [address] [facility] [id number] 0 11/17 CMP GFR estim ate ml/min /1.73m ^2 73.3 GFR is calculate d using the CKD-EPI equation. FINAL Abdulkadir Jaime * [facility] , [address] [facility] [address] [facility] [id number] 0 11/17 CMP Gluco se mg/dL 74.0 100.0 117 High FINAL Abdulkadir Jaime * [facility] , [address] [facility] [address] [facility] [id number] 0 11/17 CMP Potas sium mmol/L 3.5 5.1 4.2 FINAL Abdulkadir Jaime * [facility] , [address] [facility] [address] [facility] [id number] 0 11/17 CMP Sodiu m mmol/L 137.0 145.0 138 FINAL Abdulkadir Sandoval * [facility] , [address] [facility] [id number] 0 11/17 CMP Bilir ubin, total mg/dL 0.2 1.3 0.5 FINAL Abdulkadir Sandoval * [facility] , [address] [facility] [id number] 0 11/17 CMP Total prote in g/dL 6.3 8.2 6.7 FINAL Abdulkadir Sandoval * [facility] , [address] [facility] [id number] 0 11/17 PSA diagn ostic panel PSA ng/ml 0.0 3.9 <0.06 Test performed at [facility] on a [employer] Immunoass ay Analyzer that uses an immunomet yuko immunoass ay technique . Patient testing should not be performed using multiple methodolo gies due to analytica l variation seen between test methodunruly plaza. FINAL Abdulkadir Sandoval * [facility] , [address] [facility] [id number] 0 11/17 CBC w/ auto diff WBC K/uL 3.0 8.9 6.0 FINAL Abdulkadir Sandoval Eyadl [facility] , [facility] [address] [facility] [address] [place] [id number] 0 11/17 CBC w/ auto diff HGB g/dL 12.5 16.6 12.3 Low FINAL Abdulkadir Sandovalbrody Castanol [facility] , [facility] [place] [employer] [address] [place] [facility] [id number] 0 11/17 CBC w/ auto diff PLT K/uL 113.0 364.0 174 FINAL Abdulkadir Sandoval [place] [facility] , [facility] [address] [place] [id number] 0 11/17 CBC w/ auto diff [place] # (ANC) K/uL 1.6 6.6 3.4 FINAL Abdulkadir Sandoval [place] [facility] , [address] [place] [id number] 0 11/17 CBC w/ auto diff [place] % % 43.0 74.0 55.8 FINAL Abdulkadir Sandoval [place] [facility] , [address] [place] [id number] 0 11/17 CBC w/ auto diff IG % % 0.0 0.5 0.2 FINAL Abdulkaidr Sandoval [place] [facility] , [address] [place] [id number] 0 11/17 CBC w/ auto diff IG # K/uL 0.0 0.03 0.01 FINAL Abdulkadir Jaime [place] [facility] , [address] [place] [id number] 0 11/17 CBC w/ auto diff LY % % 14.0 41.0 29.0 FINAL Abdulkadir Jaime [place] [facility] , [address] [place] [id number] 0 11/17 CBC w/ auto diff MO % % 6.0 15.0 10.3 FINAL Abdulkadir Jaime [place] [facility] , [address] [place] [id number] 0 11/17 CBC w/ auto diff EO % % 0.0 7.0 4.2 FINAL Abdulkadir Sandoval [place] [facility] , [address] [place] [id number] 0 11/17 CBC w/ auto diff BA % % 0.0 2.0 0.5 FINAL Abdulkadir Sandoval [place] [facility] , [address] [place] [id number] 0 11/17 CBC w/ auto diff LY # K/uL 0.4 3.6 1.7 FINAL Abdulkadir Sandoval [place] [facility] , [address] [place] [id number] 0 11/17 CBC w/ auto diff MO # K/uL 0.2 1.3 0.6 FINAL Abdulkadir Sandoval [place] [facility] , [address] [place] [id number] 0 11/17 CBC w/ auto diff EO # K/uL 0.0 0.6 0.3 FINAL Abdulkadir Sandoval [place] [facility] , [address] [place] [id number] 0 11/17 CBC w/ auto diff BA # K/uL 0.0 0.2 0.0 FINAL Abdulkadir Sandoval [place] [facility] , [address] [place] [id number] 0 11/17 CBC w/ auto diff NRBC % #/100W BC 0.0 0.2 0.0 FINAL Abdulkadir Sandoval [place] [facility] , [address] [place] [id number] 0 11/17 CBC w/ auto diff RBC M/uL 4.2 5.6 4.17 Low FINAL Abdulkadir Sandoval [place] [facility] , [address] [place] [id number] 0 11/17 CBC w/ auto diff HCT % 39.0 49.0 38.9 Low FINAL Abdulkadir Jaime [place] [facility] , [address] [place] [id number] 0 11/17 CBC w/ auto diff MCV fL 80.0 104.0 93.3 FINAL Abdulkadir Jaime [place] [facility] , [address] [place] [id number] 0 11/17 CBC w/ auto diff MCH pg 26.0 35.0 29.5 FINAL Abdulkadir Jaime [place] [facility] , [address] [place] [id number] 0 11/17 CBC w/ auto diff MCHC g/dL 30.0 35.0 31.6 FINAL Abdulkadir Jaime [place] [facility] , [address] [place] [id number] 0 11/17 CBC w/ auto diff MPV fL 9.5 13.4 11.5 FINAL Abdulkadir Jaime [place] [facility] , [address] [place] [id number] 0 11/17 CBC w/ auto diff RDW % 11.3 15.6 14.60 FINAL Abdulkadir Jaime [place] [facility] , [address] [facility] [address] [place] [id number] 0 02/27 Misc other lab 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 [id number] 0 03/27 PSA diagn ostic panel PSA ng/ml 0.0 3.9 0.33 Test performed at [facility] on a [employer] 7600 Immunoass ay Analyzer that uses an immunomet yuko immunoass ay technique . Patient testing should not be performed using juma plaza due to analytica l variation seen between test malik plaza. FINAL Abdulkadir Jaime * [place] [facility] [place] [facility] , [address] [facility] [place] [id number] 0 03/27 CBC w/ auto diff MCHC g/dL 30.0 35.0 32.7 FINAL Abdulkadir Jaime [place] [facility] , [address] [place] [id number] 0 03/27 CBC w/ auto diff MPV fL 9.5 13.4 10.1 FINAL Abdulkadir Jaime [place] [facility] , [address] [place] [id number] 0 03/27 CBC w/ auto diff RDW % 11.3 15.6 13.30 FINAL [facility] Jaime [place] [facility] , [address] [place] [id number] 0 03/27 CBC w/ auto diff WBC K/uL 3.0 8.9 4.6 FINAL Abdulkadir Jaime [place] [facility] , [address] [place] [id number] 0 03/27 CBC w/ auto diff HGB g/dL 12.5 16.6 13.0 FINAL Abdulkadir Jaime [place] [facility] , [address] [place] [id number] 0 03/27 CBC w/ auto diff PLT K/uL 113.0 364.0 178 FINAL Abdulkadir Sandoval [place] [facility] , [address] [place] [id number] 0 03/27 CBC w/ auto diff [place] # (ANC) K/uL 1.6 6.6 2.8 FINAL Abdulkadir Sandoval [place] [facility] , [address] [place] [id number] 0 03/27 CBC w/ auto diff [place] % % 43.0 74.0 61.1 FINAL Abdulkadir Sandoval [place] [facility] , [address] [place] [id number] 0 03/27 CBC w/ auto diff IG % % 0.0 0.5 0.0 FINAL Abdulkadir Sandoval [place] [facility] , [address] [place] [id number] 0 03/27 CBC w/ auto diff IG # K/uL 0.0 0.03 0.00 FINAL Abdulkadir Jaime [place] [facility] , [address] [place] [id number] 0 03/27 CBC w/ auto diff LY % % 14.0 41.0 25.4 FINAL Abdulkadir Sandoval [place] [facility] , [address] [place] [id number] 0 03/27 CBC w/ auto diff MO % % 6.0 15.0 11.3 FINAL Abdulkadir Jaime [place] [facility] , [address] [place] [id number] 0 03/27 CBC w/ auto diff EO % % 0.0 7.0 1.5 FINAL Abdulkadir Sandoval [place] [facility] , [address] [place] [id number] 0 03/27 CBC w/ auto diff BA % % 0.0 2.0 0.7 FINAL Abdulkadir Sandoval [place] [facility] , [address] [place] [id number] 0 03/27 CBC w/ auto diff LY # K/uL 0.4 3.6 1.2 FINAL Abdulkadir Sandoval [place] [facility] , [address] [place] [id number] 0 03/27 CBC w/ auto diff MO # K/uL 0.2 1.3 0.5 FINAL Abdulkadir Sandoval [place] [facility] , [address] [place] [id number] 0 03/27 CBC w/ auto diff EO # K/uL 0.0 0.6 0.1 FINAL Abdulkadir Sandoval [place] [facility] , [address] [place] [id number] 0 03/27 CBC w/ auto diff BA # K/uL 0.0 0.2 0.0 FINAL Abdulkadir Sandoval [place] [facility] , [address] [place] [id number] 0 03/27 CBC w/ auto diff NRBC % #/100W BC 0.0 0.2 0.0 FINAL Abdulkadir Sandoval [place] [facility] , [address] [place] [id number] 0 03/27 CBC w/ auto diff RBC M/uL 4.2 5.6 4.19 Low FINAL Abdulkadir Sandoval [place] [facility] , [address] [place] [id number] 0 03/27 CBC w/ auto diff HCT % 39.0 49.0 39.8 FINAL Abdulkadir Sandoval [place] [facility] , [address] [facility] [address] [facility] [id number] 0 03/27 CBC w/ auto diff MCV fL 80.0 104.0 95.0 FINAL Abdulkadir Jaime [place] [facility] beds at the [facility] , [address] [facility] [address] [facility] [id number] 0 03/27 CBC w/ auto diff MCH pg 26.0 35.0 31.0 FINAL Abdulkadir Jaime [facility] , [address] [facility] [facility] [address] [facility] [id number] 0 03/27 CMP Album in g/dL 3.5 5.0 4.2 FINAL Abdulkadir Sandoval * [facility] , [address] [id number] 0 03/27 CMP Alkal ine phosp hatas e U/L 36.0 125.0 111 FINAL Abdulkadir Sandoval * [facility] , [address] [id number] 0 03/27 CMP ALT/S GPT U/L 0.0 49.0 20 FINAL Abdulkadir Sandoval * [facility] , [address] [id number] 0 03/27 CMP AST/S GOT U/L 17.0 59.0 40 FINAL Abdulkadir Sandoval * [facility] , [address] [id number] 0 03/27 CMP BUN mg/dL 9.0 20.0 21.0 High FINAL Abdulkadir Sandoval * [facility] , [address] [id number] 0 03/27 CMP Calci um mg/dL 8.4 10.2 9.4 FINAL Abdulkadir Jain * [facility] , [facility] [address] [id number] 0 03/27 CMP Chlor narinder mmol/L 96.0 107.0 101 FINAL Abdulkadir Jaime * [facility] , [facility] [address] [id number] 0 03/27 CMP CO2 mmol/L 22.0 30.0 [...] hour stability window. FINAL Abdulkadir Jaime * [facility] , [facility] [address] [id number] 0 03/27 CMP Creat inine mg/dL 0.66 1.25 1.00 FINAL Abdulkadir Jaime * [facility] , [facility] [address] [id number] 0 03/27 CMP GFR estim ate ml/min /1.73m ^2 73.1 GFR is calculate d using the CKD-EPI equation. FINAL [facility] Jaime * [facility] , [facility] [address] [id number] 0 03/27 CMP Gluco se mg/dL 74.0 100.0 81 FINAL Abdulkadir Jaime * [facility] , [facility] [address] [id number] 0 03/27 CMP Potas sium mmol/L 3.5 5.1 4.3 FINAL Abdulkadir Sandoval * [facility] , [address] [facility] [address] [facility] [id number] 0 03/27 CMP Sodiu m mmol/L 137.0 145.0 139 FINAL Abdulkadir Sandoval * [facility] , [address] [facility] [address] [facility] [id number] 0 03/27 CMP Bilir ubin, total mg/dL 0.2 1.3 0.3 FINAL Abdulkadir Sandoval * [facility] , [address] [facility] [facility] [address] [facility] [id number] 0 03/27 CMP Total prote in g/dL 6.3 8.2 6.6 FINAL Abdulkadir Sandoval * [facility] , [address] [facility] [address] [facility] [id number] 0 08/05 [facility] other lab 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 d 08/05 [facility] other lab 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 d Medications Date Name Route Dose Frequency [...]
--- OUTSIDE RECORDS SUMMARY | 2025-08-20 16:52 | XMS_ITS ---
Author Name Interface, L2Tahwlxt lity Address [address] [facility] [address] [address] [facility] Oncology Address [address] [facility] [address] [address] Allergies and Adverse Reactions Medication/Group Name Reaction [...] 15 MIN 08/07/2022 APPOINTMENT CHART CHECK 5 DC N 07/25/2022 APPOINTMENT INJECTION 15 MIN 07/25/2022 [...] 20 MIN 11/04/2021 APPOINTMENT CHART CHECK 5 DC N 11/01/2021 APPOINTMENT INJECTION 15 MIN 10/28/2021 [...] 158 CT A ND DEXA [facility] 08/18/2021 APPOINTMENT CHTCK - 44 REVIE W SCANS DONE AT [facility] 08/17/[address] - [address] [facility] CKIN: 12:45 08/17/2021 APPOINTMENT DEXA - 44 DEXA C T AB/[facility] CKIN: 12:45 08/02/2021 APPOINTMENT RCINJ - [...] 5.2 4.2 FINAL Abdulkadir Jaime Rajanot a [facility], [address] [id number] 0 Phone: () - 06/02 CMP Alkal ine phosp hatas e U/L 46.0 116.0 270 High FINAL Abdulkadir Jaime Rajanot a Oncology [facility], [address] [phone] 0 Phone: () - 06/02 CMP ALT/S GPT U/L 7.0 40.0 24 FINAL [place] [address] [id number] 0 Phone: () - 06/02 CMP AST/S GOT U/L 13.0 40.0 39 FINAL [place] [address] [id number] 0 Phone: () - 06/02 CMP BUN mg/dL 9.0 23.0 21 FINAL [place] [address] [id number] 0 Phone: () - 06/02 CMP Calci um mg/dL 8.7 10.4 9.5 FINAL [place] [address] [id number] 0 Phone: () - 06/02 CMP Chlor narinder mmol/L 96.0 114.0 111 FINAL [place] [address] [id number] 0 Phone: () - 06/02 CMP CO2 mmol/L 20.0 31.0 26 FINAL [place] [address] [id number] 0 Phone: () - 06/02 CMP Creat inine mg/dL 0.5 1.2 0.95 FINAL [place] [address] [id number] 0 Phone: () - 06/02 CMP GFR estim ate ml/min /1.73m ^2 73.9 GFR is calculate d using the CKD-EPI equation. FINAL [place] [address] [phone] 0 Phone: () - 06/02 CMP Gluco se mg/dL 73.0 126.0 77 FINAL [place] [address] [place] [phone] 0 Phone: () - 06/02 CMP Potas sium mmol/L 3.5 5.1 3.9 FINAL [facility], [address] [id number] 0 Phone: () - 06/02 CMP Sodiu m mmol/L 136.0 145.0 143 FINAL [facility] [address] [id number] 0 Phone: () - 06/02 CMP Bilir ubin, total mg/dL 0.3 1.2 0.4 FINAL [facility] [address] [id number] 0 Phone: () - 06/02 CMP Total prote in g/dL 5.7 8.2 6.9 FINAL [facility] [place] [address] [id number] 0 Phone: () - 06/02 PSA diagn ostic panel PSA ng/ml 0.0 4.0 8.40 High Test performed at [facility] on a [employer] 2000 Immunoass ay Analyzer that uses an immunoenz ymometric sandwich assay for analysis. Patient testing should not be performed using multiple methodolo gies due to analytica l variation seen between test methodolo girandee. FINAL [facility] [place] [address] [phone] 0 Phone: () - 06/02 CBC w/ auto diff WBC K/uL 3.[address] [facility] - [place], [address] [place] [id number] 0 Phone: () - 06/02 CBC w/ auto diff HGB g/dL 12.5 16.6 13.6 FINAL [facility] - [place], [address] [place] [id number] 0 Phone: () - 06/02 CBC w/ auto diff PLT K/uL 113.0 364.0 218 FINAL Abdulkadir Jaime Campbell a Oncology - [place], [address] [place] [id number] 0 Phone: () - 06/02 CBC w/ auto diff Cayetano # (ANC) K/uL 1.6 6.6 2.7 FINAL Abdulkadir Jaiem Campbell a Oncology - [place], [address] [place] [id number] 0 Phone: () - 06/02 CBC w/ auto diff Cayetano % % 43.0 74.0 50.9 FINAL Abdulkadir Jaime Campbell a Oncology - [place], [address] [place] [id number] 0 Phone: () - 06/02 CBC w/ auto diff IG % % 0.0 0.5 0.2 FINAL Abdulkadirshell weinberg [facility] - [place], [address] [place] [phone] 0 Phone: () - 06/02 CBC w/ auto diff IG # K/uL 0.0 0.03 0.01 FINAL Abdulkadirshell weinberg Oncology - [place], [address] [place] [id number] 0 Phone: () - 06/02 CBC w/ auto diff LY % % 14.0 41.0 31.9 FINAL Abdulkadirshell Campbell a Oncology - [place], [address] [place] [id number] 0 Phone: () - 06/02 CBC w/ auto diff MO % % 6.0 15.0 8.2 FINAL Abdulkadirshell Campbell a Oncology - [place], [address] [place] [id number] 0 Phone: () - 06/02 CBC w/ auto diff EO % % 0.0 7.0 8.2 High FINAL Abdulkadirshell Rajanot a Oncology - [place], [address] [place] [id number] 0 Phone: () - 06/02 CBC w/ auto diff BA % % 0.0 2.0 0.6 FINAL Abdulkadir Jaime Rajanot a Oncology - [place], [address] [place] [id number] 0 Phone: () - 06/02 CBC w/ auto diff LY # K/uL 0.4 3.6 1.7 FINAL Abdulkadir Jaime Rajanot a Oncology - [place], [address] [place] [id number] 0 Phone: () - 06/02 CBC w/ auto diff MO # K/uL 0.2 1.3 0.4 FINAL Abdulkadir Jaime Rajanot a Oncology - [place], [address] [place] [id number] 0 Phone: () - 06/02 CBC w/ auto diff EO # K/uL 0.0 0.6 0.4 FINAL Abdulkadir Jaime Rajanot a Oncology - [place], [address] [place] [id number] 0 Phone: () - 06/02 CBC w/ auto diff BA # K/uL 0.0 0.2 0.0 FINAL Abdulkadir Jaime Rajanot a Oncology - [place], [address] [place] [id number] 0 Phone: () - 06/02 CBC w/ auto diff NRBC % #/100W BC 0.0 0.2 0.0 FINAL Abdulkadir Jaime Rajanot a Oncology - [place], [address] [place] [id number] 0 Phone: () - 06/02 CBC w/ auto diff RBC M/uL 4.2 5.6 4.49 FINAL Abdulkadir Jaime Rajanot a Oncology - [place], [address] [place] [id number] 0 Phone: () - 06/02 CBC w/ auto diff HCT % 39.0 49.0 40.8 FINAL Abdulkadir Jaime Rajanot a Oncology - [place], [address] [place] [id number] 0 Phone: () - 06/02 CBC w/ auto diff MCV fL 80.0 104.0 90.9 FINAL Abdulkadir Jaime Rajanot a Oncology - [place], [address] [place] [id number] 0 Phone: () - 06/02 CBC w/ auto diff MCH pg 26.0 35.0 30.3 FINAL Abdulkadir Jaime Rajanot a Oncology - [place], [address] [place] [id number] 0 Phone: () - 06/02 CBC w/ auto diff MCHC g/dL 30.0 35.0 33.3 FINAL Abdulkadir Jaime Rajanot a Oncology - [place], [address] [place] [id number] 0 Phone: () - 06/02 CBC w/ auto diff MPV fL 9.5 13.4 10.5 FINAL Abdulkadir Jaime Rajanot a Oncology - [place], [address] [place] [id number] 0 Phone: () - 06/02 CBC w/ auto diff RDW % 11.3 15.6 13.90 FINAL Abdulkadir Jaime Rajanot a Oncology - [place], [address] [place] [id number] 0 Phone: () - 07/28 [facility] other lab See flow specialist d 08/02 CBC w/ auto diff WBC K/uL 3.0 8.9 5.9 FINAL Abdulkadir Jaime Rajanot a Oncology - [place], [address] [place] [id number] 0 Phone: () - 08/02 CBC w/ auto diff HGB g/dL 12.5 16.6 13.1 FINAL Abdulkadir Jaime Rajanot a Oncology - [place], [address] [place] [id number] 0 Phone: () - 08/02 CBC w/ auto diff PLT K/uL 113.0 364.0 237 FINAL Abdulkadir Jaime Rajanot a Oncology - [place], [address] [place] [id number] 0 Phone: () - 08/02 CBC w/ auto diff Cayet[place] # (ANC) K/uL 1.6 6.6 2.9 FINAL Abdulkadir Jaime Rajanot a Oncology - [place], [address] [place] [id number] 0 Phone: () - 08/02 CBC w/ auto diff Cayet[place] % % 43.0 74.0 49.2 FINAL Abdulkadir Jaime Rajanot a Oncology - [place], [address] [place] [id number] 0 Phone: () - 08/02 CBC w/ auto diff IG % % 0.0 0.5 0.2 FINAL Abdulkadir Jaime Rajanot a Oncology - [place], [address] [place] [id number] 0 Phone: () - 08/02 CBC w/ auto diff IG # K/uL 0.0 0.03 0.01 FINAL Abdulkadirshell Rajanot a Oncology - [place], [address] [place] [id number] 0 Phone: () - 08/02 CBC w/ auto diff LY % % 14.0 41.0 33.2 FINAL Abdulkadir Jaime Rajanot a Oncology - [place], [address] [place] [id number] 0 Phone: () - 08/02 CBC w/ auto diff MO % % 6.0 15.0 9.0 FINAL Abdulkadir Jaime Rajanot a Oncology - [place], [address] [place] [id number] 0 Phone: () - 08/02 CBC w/ auto diff EO % % 0.0 7.0 7.5 High FINAL Abdulkadir Jaime Rajanot a Oncology - [place], [address] [place] [id number] 0 Phone: () - 08/02 CBC w/ auto diff BA % % 0.0 2.0 0.9 FINAL Abdulkadir Jaime Rajanot a Oncology - [place], [address] [place] [id number] 0 Phone: () - 08/02 CBC w/ auto diff LY # K/uL 0.4 3.6 2.0 FINAL Abdulkadir Jaime Rajanot a Oncology - [place], [address] [place] [id number] 0 Phone: () - 08/02 CBC w/ auto diff MO # K/uL 0.2 1.3 0.5 FINAL Abdulkadir Jaime Rajanot a Oncology - [place], [address] [place] [id number] 0 Phone: () - 08/02 CBC w/ auto diff EO # K/uL 0.0 0.6 0.4 FINAL Abdulkadir Jaime Rajanot a Oncology - [place], [address] [place] [id number] 0 Phone: () - 08/02 CBC w/ auto diff BA # K/uL 0.0 0.2 0.1 FINAL Abdulkadir Jaime Rajanot a Oncology - [place], [address] [place] [id number] 0 Phone: () - 08/02 CBC w/ auto diff NRBC % #/100W BC 0.0 0.2 0.0 FINAL Abdulkadir Jaime Rajanot a Oncology - [place], [address] [place] [id number] 0 Phone: () - 08/02 CBC w/ auto diff RBC M/uL 4.2 5.6 4.28 FINAL Abdulkadir Jaime Rajanot a Oncology - [place], [address] [place] [id number] 0 Phone: () - 08/02 CBC w/ auto diff HCT % 39.0 49.0 39.1 FINAL Abdulkadir Jaime Rajanot a Oncology - [place], [address] [place] [id number] 0 Phone: () - 08/02 CBC w/ auto diff MCV fL 80.0 104.0 91.4 FINAL Abdulkadir Jaime Rajanot a Oncology - [place], [address] [place] [id number] 0 Phone: () - 08/02 CBC w/ auto diff MCH pg 26.0 35.0 30.6 FINAL Abdulkadir Jaime Rajanot a Oncology - [place], [address] [place] [id number] 0 Phone: () - 08/02 CBC w/ auto diff MCHC g/dL 30.0 35.0 33.5 FINAL Abdulkadirshell Campbell a Oncology - [place], [address] [place] [id number] 0 Phone: () - 08/02 CBC w/ auto diff MPV fL 9.5 13.4 10.1 FINAL Abdulkadirshell Campbell a Oncology - [place], [address] [place] [id number] 0 Phone: () - 08/02 CBC w/ auto diff RDW % 11.3 15.6 13.70 FINAL Abdulkadir Jaime Campbell a Oncology - [place], [address] [place] [id number] 0 Phone: () - 08/02 CMP Album in g/dL 3.2 5.2 4.2 FINAL Abdulkadir Jaime Satindereddie a Oncology - [place], [address] [place] [id number] 0 Phone: () - 08/02 CMP Alkal ine phosp hatas e U/L 46.0 116.0 131 High FINAL [facility] [address] [facility] [address] [id number] 0 Phone: () - 08/02 CMP ALT/S GPT U/L 7.0 40.0 22 FINAL [facility] [address] [facility] [address] [id number] 0 Phone: () - 08/02 CMP AST/S GOT U/L 13.0 40.0 31 FINAL [place] [address] [address] [facility] [address] [id number] 0 Phone: () - 08/02 CMP BUN mg/dL 9.0 23.0 20 FINAL [place] [address] [id number] 0 Phone: () - 08/02 CMP Calci um mg/dL 8.7 10.4 9.9 FINAL [place] [address] [id number] 0 Phone: () - 08/02 CMP Chlor narinder mmol/L 96.0 114.0 108 FINAL [place] [address] [id number] 0 Phone: () - 08/02 CMP CO2 [...] of the 96 hour stability window. FINAL [facility] [address] [id number] 0 Phone: () - 08/02 CMP Creat inine mg/dL 0.5 1.2 0.98 FINAL [place] [address] [address] [facility] [address] [id number] 0 Phone: () - 08/02 CMP GFR estim ate ml/min /1.73m ^2 71.1 GFR is calculate d using the CKD-EPI equation. FINAL [facility] N [facility] [address] [place] [address] [id number] 0 Phone: () - 08/02 CMP Gluco se mg/dL 73.0 126.0 83 FINAL [place] [address] [address] [facility] [address] [id number] 0 Phone: () - 08/02 CMP Potas sium mmol/L 3.5 5.1 4.2 FINAL [facility] [address] [facility] [address] [id number] 0 Phone: () - 08/02 CMP Sodiu m mmol/L 136.0 145.0 142 FINAL [place] [address] [id number] 0 Phone: () - 08/02 CMP Bilir ubin, total mg/dL 0.3 1.2 0.5 FINAL [facility] [address] [facility] [address] [id number] 0 Phone: () - 08/02 CMP Total prote in g/dL 5.7 8.2 7.0 FINAL [place] [address] [address] [facility] [address] [phone] 0 Phone: () - 08/02 PSA diagn ostic panel PSA ng/ml 0.0 4.0 1.10 Test performed at [facility] on a [employer] Immunoass ay Analyzer that uses an immunoenz ymometric sandwich assay for analysis. Patient testing should not be performed using multiple malik plaza due to analytica l variation seen between test malik plaza. FINAL [facility] N [facility] [address] [place] [address] [id number] 0 Phone: () - 09/02 CBC w/ auto diff WBC K/uL 3.0 8.9 5.0 FINAL [facility], [address] [place] [id number] 0 Phone: () - 09/02 CBC w/ auto diff HGB g/dL 12.5 16.6 13.1 FINAL Abdulkadir Jaime Rajanot a Oncology - [place], [address] [place] [id number] 0 Phone: () - 09/02 CBC w/ auto diff PLT K/uL 113.0 364.0 209 FINAL Abdulkadir Jaime Rajanot a Oncology - [place], [address] [place] [id number] 0 Phone: () - 09/02 CBC w/ auto diff Cayet[place] # (ANC) K/uL 1.6 6.6 2.6 FINAL Abdulkadir Jaime Rajanot a Oncology - [place], [address] [place] [id number] 0 Phone: () - 09/02 CBC w/ auto diff Cayet[place] % % 43.0 74.0 53.1 FINAL Abdulkadir Jaime Rajanot a Oncology - [place], [address] [place] [id number] 0 Phone: () - 09/02 CBC w/ auto diff IG % % 0.0 0.5 0.2 FINAL Abdulkadir Jaime Rajanot a Oncology - [place], [address] [place] [id number] 0 Phone: () - 09/02 CBC w/ auto diff IG # K/uL 0.0 0.03 0.01 FINAL Abdulkadir Jaime Rajanot a Oncology - [place], [address] [place] [id number] 0 Phone: () - 09/02 CBC w/ auto diff LY % % 14.0 41.0 33.6 FINAL Abdulkadir Jaime Rajanot a Oncology - [place], [address] [place] [id number] 0 Phone: () - 09/02 CBC w/ auto diff MO % % 6.0 15.0 8.7 FINAL Abdulkadir Jaime Rajanot a Oncology - [place], [address] [place] [id number] 0 Phone: () - 09/02 CBC w/ auto diff EO % % 0.0 7.0 3.8 FINAL Abdulkadir Jaime Rajanot a Oncology - [place], [address] [place] [id number] 0 Phone: () - 09/02 CBC w/ auto diff BA % % 0.0 2.0 0.6 FINAL Abdulkadir Jaime Rajanot a Oncology - [place], [address] [place] [id number] 0 Phone: () - 09/02 CBC w/ auto diff LY # K/uL 0.4 3.6 1.7 FINAL Abdulkadir Jaime Rajanot a Oncology - [place], [address] [place] [id number] 0 Phone: () - 09/02 CBC w/ auto diff MO # K/uL 0.2 1.3 0.4 FINAL Abdulkadir Jaime Rajanot a Oncology - [place], [address] [place] [id number] 0 Phone: () - 09/02 CBC w/ auto diff EO # K/uL 0.0 0.6 0.2 FINAL Abdulkadir Jaime Rajanot a Oncology - [place], [address] [place] [id number] 0 Phone: () - 09/02 CBC w/ auto diff BA # K/uL 0.0 0.2 0.0 FINAL Abdulkadir Jaime Raajnot a Oncology - [place], [address] [place] [id number] 0 Phone: () - 09/02 CBC w/ auto diff NRBC % #/100W BC 0.0 0.2 0.0 FINAL Abdulkadir Jaime Rajanot a Oncology - [place], [address] [place] [id number] 0 Phone: () - 09/02 CBC w/ auto diff RBC M/uL 4.2 5.6 4.26 FINAL Abdulkadirshell Rajanot a Oncology - [place], [address] [place] [id number] 0 Phone: () - 09/02 CBC w/ auto diff HCT % 39.0 49.0 39.6 FINAL Abdulkadirshell Rajanot a Oncology - [place], [address] [facility] [address] [place] [id number] 0 Phone: () - 09/02 CBC w/ auto diff MCV fL 80.0 104.0 93.0 FINAL Abdulkadir Sandoval Satinderot a Oncology - [place], [address] [facility] [address] [place] [id number] 0 Phone: () - 09/02 CBC w/ auto diff MCH pg 26.0 35.0 30.8 FINAL Abdulkadir Jaime Satinderot a Oncology - [place], [address] [facility] [address] [place] [id number] 0 Phone: () - 09/02 CBC w/ auto diff MCHC g/dL 30.0 35.0 33.1 FINAL Abdulkadir Jaime Satinderot a Oncology - [place], [address] [facility] [address] [place] [id number] 0 Phone: () - 09/02 CBC w/ auto diff MPV fL 9.5 13.4 10.2 FINAL Abdulkadir Sandoval Satinderot a On[facility] - [place], [address] [facility] [address] [place] [id number] 0 Phone: () - 09/02 CBC w/ auto diff RDW % 11.3 15.6 13.50 FINAL Abdulkadir Sandoval Satinderot a Oncology - [place], [address] [facility] [address] [place] [id number] 0 Phone: () - 09/02 CMP Album in g/dL 3.2 5.2 4.1 FINAL [place] [address] [address] [facility] [address] [id number] 0 Phone: () - 09/02 CMP Alkal ine phosp hatas e U/L 46.0 116.0 113 FINAL [place] [address] [id number] 0 Phone: () - 09/02 CMP ALT/S GPT U/L 7.0 40.0 23 FINAL [place] [address] [id number] 0 Phone: () - 09/02 CMP AST/S GOT U/L 13.0 40.0 35 FINAL [place] [address] [id number] 0 Phone: () - 09/02 CMP BUN mg/dL 9.0 23.0 20 FINAL [place] [address] [id number] 0 Phone: () - 09/02 CMP Calci um mg/dL 8.7 10.4 10.1 FINAL [place] [address] [id number] 0 Phone: () - 09/02 CMP Chlor narinder mmol/L 96.0 114.0 107 FINAL [place] [address] [id number] 0 Phone: () - 09/02 CMP CO2 [...] of the 96 hour stability window. FINAL [place] [address] [id number] 0 Phone: () - 09/02 CMP Creat inine mg/dL 0.5 1.2 1.00 FINAL [place] [address] [id number] 0 Phone: () - 09/02 CMP GFR estim ate ml/min /1.73m ^2 69.4 GFR is calculate d using the CKD-EPI equation. FINAL [place] [address] [id number] 0 Phone: () - 09/02 CMP Gluco se mg/dL 73.0 126.0 98 FINAL [place] [address] [id number] 0 Phone: () - 09/02 CMP Potas sium mmol/L 3.5 5.1 3.8 FINAL [place] [address] [id number] 0 Phone: () - 09/02 CMP Sodiu m mmol/L 136.0 145.0 144 FINAL [place] [address] [id number] 0 Phone: () - 09/02 CMP Bilir ubin, total mg/dL 0.3 1.2 0.4 FINAL [place] [address] [id number] 0 Phone: () - 09/02 CMP Total prote in g/dL 5.7 8.2 6.9 FINAL [place] [address] [id number] 0 Phone: () - 09/02 PSA diagn ostic panel PSA ng/ml 0.0 4.0 0.70 Test performed at [facility] on a [employer] Immunoass ay Analyzer that uses an immunoenz ymometric sandwich assay for analysis. Patient testing should not be performed using multiple methodunruly plaza due to analytica l variation seen between test methodunruly plaza. FINAL [place] [address] [place] [phone] 0 Phone: () - 09/30 CBC w/ auto diff WBC K/uL 3.0 8.9 6.4 FINAL Abdulkadir Jaime Rajanot a Oncology - [place], [address] [place] [id number] 0 Phone: () - 09/30 CBC w/ auto diff HGB g/dL 12.5 16.6 12.7 FINAL Abdulkadir Jaime Rajanot a Oncology - [place], [address] [place] [id number] 0 Phone: () - 09/30 CBC w/ auto diff PLT K/uL 113.0 364.0 233 FINAL Abdulkadir Jaime Rajanot a Oncology - [place], [address] [place] [id number] 0 Phone: () - 09/30 CBC w/ auto diff [place]et[place] # (ANC) K/uL 1.6 6.6 3.4 FINAL Abdulkadir Jaime Campbell a Oncology - [place], [address] [place] [id number] 0 Phone: () - 09/30 CBC w/ auto diff Cayet[place] % % 43.0 74.0 53.1 FINAL Abdulkadir Jaime Campbell a [facility] - [place], [address] [place] [id number] 0 Phone: () - 09/30 CBC w/ auto diff IG % % 0.0 0.5 0.3 FINAL Abdulkadir Jaime Rajanot a Oncology - [place], [address] [place] [id number] 0 Phone: () - 09/30 CBC w/ auto diff IG # K/uL 0.0 0.03 0.02 FINAL Abdulkadir Jaime Rajanot a Oncology - [place], [address] [place] [id number] 0 Phone: () - 09/30 CBC w/ auto diff LY % % 14.0 41.0 33.3 FINAL Abdulkadir Jaime Rajanot a Oncology - [place], [address] [place] [id number] 0 Phone: () - 09/30 CBC w/ auto diff MO % % 6.0 15.0 8.9 FINAL Abudlkadir Jaime Rajanot a Oncology - [place], [address] [place] [id number] 0 Phone: () - 09/30 CBC w/ auto diff EO % % 0.0 7.0 3.8 FINAL Abdulkadir Jaime Rajanot a Oncology - [place], [address] [place] [id number] 0 Phone: () - 09/30 CBC w/ auto diff BA % % 0.0 2.0 0.6 FINAL Abdulkadir Jaime Rajanot a Oncology - [place], [address] [place] [id number] 0 Phone: () - 09/30 CBC w/ auto diff LY # K/uL 0.4 3.6 2.1 FINAL Abdulkadir Jaime Rajanot a Oncology - [place], [address] [place] [id number] 0 Phone: () - 09/30 CBC w/ auto diff MO # K/uL 0.2 1.3 0.6 FINAL Abdulkadir Jaime Rajanot a Oncology - [place], [address] [place] [id number] 0 Phone: () - 09/30 CBC w/ auto diff EO # K/uL 0.0 0.6 0.2 FINAL Abdulkadir Jaime Rajanot a On[facility] - [place], [address] [place] [id number] 0 Phone: () - 09/30 CBC w/ auto diff BA # K/uL 0.0 0.2 0.0 FINAL Abdulkadir Jaime Rajanot a On[facility] - [place], [address] [place] [id number] 0 Phone: () - 09/30 CBC w/ auto diff NRBC % #/100W BC 0.0 0.2 0.0 FINAL Abdulkadir Jaime Campbell a [facility] - [place], [address] [place] [id number] 0 Phone: () - 09/30 CBC w/ auto diff RBC M/uL 4.2 5.6 4.10 Low FINAL Abdulkadir Jaime Rajanot a Oncology - [place], [address] [facility] [address] [place] [id number] 0 Phone: () - 09/30 CBC w/ auto diff HCT % 39.0 49.0 38.4 Low FINAL Abdulkadir Ja[facility] [place], [address] [facility] [address] [place] [id number] 0 Phone: () - 09/30 CBC w/ auto diff MCV fL 80.0 104.0 93.7 FINAL [facility]ulkadir Ja[facility] [place], [address] [place] [id number] 0 Phone: () - 09/30 CBC w/ auto diff MCH pg 26.0 35.0 31.0 FINAL Abdulkadir Ja[facility] [place], [address] [facility] [address] [place] [id number] 0 Phone: () - 09/30 CBC w/ auto diff MCHC g/dL 30.0 35.0 33.1 FINAL Abdulkadir Jaime [facility] - [place], [address] [place] [id number] 0 Phone: () - 09/30 CBC w/ auto diff MPV fL 9.5 13.4 9.9 FINAL Abdulkadir Jaime Rajanot a [facility] - [place], [address] [place] [id number] 0 Phone: () - 09/30 CBC w/ auto diff RDW % 11.3 15.6 13.60 FINAL [facility], [address] [facility] [phone] 0 Phone: () - 09/30 PSA diagn ostic panel PSA ng/ml 0.0 4.0 0.60 Test performed at [facility] on a [employer] 2000 Immunoass ay Analyzer that uses an immunoenz ymometric sandwich assay for analysis. Patient testing should not be performed using multiple methodunruly plaza due to analytica l variation seen between test methodunruly plaza. FINAL [facility] [place] [address] [address] [facility] [address] [place] [address] [phone] 0 Phone: () - 09/30 CMP Album in g/dL 3.2 5.2 4.2 FINAL [facility] [place] [address] [address] [facility] [address] [place] [address] [phone] 0 Phone: () - 09/30 CMP Alkal ine phosp hatas e U/L 46.0 116.0 108 FINAL [facility] [place] [address] [address] [facility] [address] [place] [address] [id number] 0 Phone: () - 09/30 CMP ALT/S GPT U/L 7.0 40.0 22 FINAL [place] [address] [address] [facility] [address] [place] [address] [id number] 0 Phone: () - 09/30 CMP AST/S GOT U/L 13.0 40.0 26 FINAL [place] [address] [address] [facility] [address] [place] [address] [id number] 0 Phone: () - 09/30 CMP BUN mg/dL 9.0 23.0 28 High FINAL [place] [address] [id number] 0 Phone: () - 09/30 CMP Calci um mg/dL 8.7 10.4 10.3 FINAL [facility] [place] [address] [address] [facility] [address] [place] [address] [phone] 0 Phone: () - 09/30 CMP Chlor narinder mmol/L 96.0 114.0 109 FINAL [facility], [address] [facility] [address] [id number] 0 Phone: () - 09/30 CMP CO2 [...] of the 96 hour stability window. FINAL [facility] [place] [address] [phone] 0 Phone: () - 09/30 CMP Creat inine mg/dL 0.5 1.2 0.96 FINAL [place] [address] [id number] 0 Phone: () - 09/30 CMP GFR estim ate ml/min /1.73m ^2 72.8 GFR is calculate d using the CKD-EPI equation. FINAL [place] [address] [id number] 0 Phone: () - 09/30 CMP Gluco se mg/dL 73.0 126.0 73 FINAL [place] [address] [id number] 0 Phone: () - 09/30 CMP Potas sium mmol/L 3.5 5.1 4.2 FINAL [place] [address] [address] [facility] [address] [id number] 0 Phone: () - 09/30 CMP Sodiu m mmol/L 136.0 145.0 146 High FINAL [facility] [address] [facility] [address] [phone] 0 Phone: () - 09/30 CMP Bilir ubin, total mg/dL 0.3 1.2 0.4 FINAL [place] [address] [address] [facility] [address] [facility] [id number] 0 Phone: () - 09/30 CMP Total prote in g/dL 5.7 8.2 6.8 FINAL Abdulkadir weinberg [facility], [address] [facility] [address] [place] [id number] 0 Phone: () - 12/06 PSA diagn ostic panel PSA ng/ml 0.0 4.0 0.50 Test performed at [facility] on a [employer] 2000 Immunoass ay Analyzer that uses an immunoenz ymometric sandwich assay for analysis. Patient testing should not be performed using multiple methodolo gies due to analytica l variation seen between test methodolo gies. FINAL Abdulkadir weinberg [facility], [address] [facility] [address] [place] [id number] 0 Phone: () - 12/06 CBC w/ auto diff WBC K/uL 3.0 8.9 5.2 FINAL Abdulkadir weinberg [facility] - [place] , [address] [place] [address] [place] [address] [id number] 0 Phone: () - 12/06 CBC w/ auto diff HGB g/dL 12.5 16.6 10.4 Low FINAL Abdulkadir weinberg [facility] - [place] , [address] [place] [address] [place] [address] [place] [id number] 0 Phone: () - 12/06 CBC w/ auto diff PLT K/uL 113.0 364.0 248 FINAL Abdulkadir weinberg [facility] - [place] , [address] [place] [address] [place] [address] [place] [id number] 0 Phone: () - 12/06 CBC w/ auto diff Cayetano # (ANC) K/uL 1.6 6.6 2.6 FINAL Abdulkadir weinberg [facility] - [place] , [address] [place] [address] [place] [address] [place] [id number] 0 Phone: () - 12/06 CBC w/ auto diff Cayetano % % 43.0 74.0 50.8 FINAL Abdulkadir weinberg [facility] - [place], [address] [place] [id number] 0 Phone: () - 12/06 CBC w/ auto diff IG % % 0.0 0.5 0.2 FINAL Abdulkadirshell Campbell [facility] - [place], [address] [place] [id number] 0 Phone: () - 12/06 CBC w/ auto diff IG # K/uL 0.0 0.03 0.01 FINAL Abdulkadirshell Rajanot a [facility] - [place], [address] [place] [id number] 0 Phone: () - 12/06 CBC w/ auto diff LY % % 14.0 41.0 35.7 FINAL Abdulkadirshell Rajanot a [facility] - [place], [address] [place] [id number] 0 Phone: () - 12/06 CBC w/ auto diff MO % % 6.0 15.0 10.6 FINAL Abdulkadirshell [facility] - [place], [address] [place] [id number] 0 Phone: () - 12/06 CBC w/ auto diff EO % % 0.0 7.0 2.1 FINAL Abdulkadir [facility] - [place], [address] [place] [id number] 0 Phone: () - 12/06 CBC w/ auto diff BA % % 0.0 2.0 0.6 FINAL Abdulkadirshell [facility] - [place], [address] [place] [id number] 0 Phone: () - 12/06 CBC w/ auto diff LY # K/uL 0.4 3.6 1.9 FINAL Abdulkadirshell Campbell [facility] - [place], [address] [place] [id number] 0 Phone: () - 12/06 CBC w/ auto diff MO # K/uL 0.2 1.3 0.6 FINAL Abdulkadir Jaime Rajanot a [facility] - [place], [address] [place] [id number] 0 Phone: () - 12/06 CBC w/ auto diff EO # K/uL 0.0 0.6 0.1 FINAL Abdulkadir Jaime Rajanot a [facility] - [place], [address] [place] [id number] 0 Phone: () - 12/06 CBC w/ auto diff BA # K/uL 0.0 0.2 0.0 FINAL Abdulkadir Jaime Rajanot a [facility] - [place], [address] [place] [id number] 0 Phone: () - 12/06 CBC w/ auto diff NRBC % #/100W BC 0.0 0.2 0.0 FINAL Abdulkadir Jaime Rajanot a [facility] - [place], [address] [place] [id number] 0 Phone: () - 12/06 CBC w/ auto diff RBC M/uL 4.2 5.6 3.49 Low FINAL Abdulkadir Jaime Rajanot a [facility] - [place], [address] [place] [id number] 0 Phone: () - 12/06 CBC w/ auto diff HCT % 39.0 49.0 31.6 Low FINAL Abdulkadir Jaime Rajanot a [facility] - [place], [address] [place] [id number] 0 Phone: () - 12/06 CBC w/ auto diff MCV fL 80.0 104.0 90.5 FINAL Abdulkadir Jaime Rajanot a [facility] - [place], [address] [place] [id number] 0 Phone: () - 12/06 CBC w/ auto diff MCH pg 26.0 35.0 29.8 FINAL Abdulkadir Jaime Rajanot a [facility] - [place], [address] [place] [id number] 0 Phone: () - 12/06 CBC w/ auto diff MCHC g/dL 30.0 35.0 32.9 FINAL Abdulkadir Jaime weinberg [facility] - [place], [address] [facility] [address] [place] [id number] 0 Phone: () - 12/06 CBC w/ auto diff MPV fL 9.5 13.4 9.9 FINAL Abdulkadir Jaime weinberg [facility] - [place], [address] [facility] [address] [place] [id number] 0 Phone: () - 12/06 CBC w/ auto diff RDW % 11.3 15.6 13.00 FINAL Abdulkadir Jaime weinberg [facility] - [place], [address] [facility] [address] [facility] [place] [id number] 0 Phone: () - 12/06 CMP Album in g/dL 3.2 5.2 4.1 FINAL Abdulkadir Jaime weinberg [facility], [address] [facility] [address] [place] [address] [id number] 0 Phone: () - 12/06 CMP Alkal ine phosp hatas e U/L 46.0 116.0 103 FINAL Abdulkadir Jaime weinberg [facility], [address] [facility] [address] [place] [address] [id number] 0 Phone: () - 12/06 CMP ALT/S GPT U/L 7.0 40.0 27 FINAL Abdulkadir Jaime Rajan a [facility], [facility] [address] [facility] [address] [place] [address] [id number] 0 Phone: () - 12/06 CMP AST/S GOT U/L 13.0 40.0 56 High FINAL Abdulkadir Jaime Rajan sultana [facility], [facility] [address] [facility] [address] [place] [address] [id number] 0 Phone: () - 12/06 CMP BUN mg/dL 9.0 23.0 26 High FINAL Abdulkadirshell Rajan sultana [facility], [facility] [address] [facility] [address] [place] [address] [id number] 0 Phone: () - 12/06 CMP Calci um mg/dL 8.7 10.4 10.1 [facility] [place] [address] [id number] 0 Phone: () - 12/06 CMP Chlor narinder mmol/L 96.0 114.0 108 FINAL [place] [address] [id number] 0 Phone: () - 12/06 CMP CO2 [...] of the 96 hour stability window. FINAL [place] [address] [id number] 0 Phone: () - 12/06 CMP Creat inine mg/dL 0.5 1.2 1.21 High FINAL [place] [address] [id number] 0 Phone: () - 12/06 CMP GFR estim ate ml/min /1.73m ^2 55.0 Low GFR is calculate d using the CKD-EPI equation. FINAL [place] [address] [id number] 0 Phone: () - 12/06 CMP Gluco se mg/dL 73.0 126.0 111 FINAL [place] [address] [id number] 0 Phone: () - 12/06 CMP Potas sium mmol/L 3.5 5.1 4.2 FINAL [place] [address] [id number] 0 Phone: () - 12/06 CMP Sodiu m mmol/L 136.0 145.0 144 FINAL [facility] - [place], [address] [place] [id number] 0 Phone: () - 12/06 CMP Bilir ubin, total mg/dL 0.3 1.2 0.3 FINAL Abdulkadir Jaime weinberg [facility] - [place], [address] [place] [id number] 0 Phone: () - 12/06 CMP Total prote in g/dL 5.7 8.2 6.5 FINAL Abdulkadir Jaime [facility] - [place], [address] [place] [id number] 0 Phone: () - 12/06 Color (ua) Yellow FINAL Abdulkadir Jaime [facility] - [place], [address] [place] [id number] 0 Phone: () - 12/06 Appea rosie (ua) Clear FINAL Abdulkadir Jaime [facility] - [place], [address] [place] [id number] 0 Phone: () - 12/06 Gluco se (ua), qual Negativ e FINAL Abdulkadir Jaime [facility] [place], [address] [place] [id number] 0 Phone: () - 12/06 Bilir ubin (ua) Negativ e FINAL Abdulkadir Jaime [facility] - [place], [address] [place] [id number] 0 Phone: () - 12/06 Urina lysis , aceto ne or keton e vladimir s measu remen t Negativ e FINAL Abdulkadir Jaime Rajanot a [facility] - [place], [address] [place] [id number] 0 Phone: () - 12/06 Speci fic gravi ty (ua) 1.005 1.02 1.030 Abnor mal FINAL Abdulkadir Jaime Rajanot a [facility] - [place], [address] [place] [id number] 0 Phone: () - 12/06 Blood (ua) Negativ e FINAL Abdulkadir Jaime Rajanot a [facility] - [place], [address] [place] [id number] 0 Phone: () - 12/06 pH (ua) 5.0 8.0 6.0 FINAL Abdulkadir Jaime Rajanot a [facility] - [place], [address] [place] [id number] 0 Phone: () - 12/06 Prote in (ua) Negativ e FINAL Abdulkadir Jaime Rajanot a [facility] - [place], [address] [place] [id number] 0 Phone: () - 12/06 Urobi linog en (ua) 0.2 1.0 0.2 FINAL Abdulkadir Jaime Rajanot a [facility] - [place], [address] [place] [id number] 0 Phone: () - 12/06 Nitri te (ua) Positiv e Abnor mal FINAL Abdulkadir Jaime [facility] - [place], [address] [place] [id number] 0 Phone: () - 12/06 Leuko cyte theresa ase (ua), qual Negativ e FINAL Abdulkadir Jaime Rajanot [facility] - [place], [address] [place] [id number] 0 Phone: () - 12/06 UA comme nt 1 Dipstic k Positiv e-Micro Ordered FINAL Abdulkadir Jaiem Rajanot a [facility] - [place], [address] [place] [id number] 0 Phone: () - 12/06 UA Micro scopi c WBC (ua) 0.0 2.0 0-2 FINAL Abdulkadir Jaime [facility] - [place], [address] [place] [id number] 0 Phone: () - 12/06 UA Micro scopi c RBC (ua) 0.0 2.0 3-5 Abnor mal FINAL Abdulkadir Jaime weinberg [facility] - [place], [address] [facility] [address] [place] [id number] 0 Phone: () - 12/06 UA Micro scopi c Epith elial cells (ua) Rare 0-2 FINAL Abdulkadir Jaime weinberg [facility] - [place], [address] [place], [place] [address]et [facility] [address] [place] [id number] 0 Phone: () - 12/06 UA Micro scopi c Bacte anai (ua) Moderat e Abnor mal FINAL Abdulkadir Jaime weinberg [facility] - [place], [address] [place] [address] d [address] [facility] [place] [id number] 0 Phone: () - 12/06 UA Micro scopi c Mucus (ua) Negativ e FINAL [facility] Jaime Campbell [facility] - [place], [address] [place] [address] d [address] [facility] [place] [id number] 0 Phone: () - 12/06 UA Micro scopi c Casts , urine None FINAL Abdulkadir Jaime weinberg [facility] - [place], [address] [place] [address] d [address] [facility] [place] [id number] 0 Phone: () - 12/06 UA Micro scopi c Cryst als (ua) None FINAL [facility] Jaime weinberg [facility] - [place], [address] [place] [address] [facility] [address] [place] [id number] 0 Phone: () - 12/06 UA Micro scopi c UA comme nt 1 Micro Positiv e-Cultu re Ordered FINAL [facility] Jaime weinberg On[facility] - [place], [address] [place], [place] [address]et [facility] [address] [place] [id number] 0 Phone: () - 12/07 Urine cultu [...] m <=0.25 SNitrofur antoin <=16 STest Performed by:[facility] [address] - [facility] [place], [place] [address]Msbq e [phone] FINAL Abdulkadir Jaime 01/06 CBC w/ auto diff WBC K/uL 3.0 8.9 5.5 FINAL Abdulkadir Jaime [facility] - [place] , [address] [place] [address] [address] [facility] [id number] 0 Phone: () - 01/06 CBC w/ auto diff HGB g/dL 12.5 16.6 11.0 Low FINAL Abdulkadir Jaime Rajanot a [facility] - [place] , [address] [place] [address] [address] [facility] [id number] 0 Phone: () - 01/06 CBC w/ auto diff PLT K/uL 113.0 364.0 245 FINAL Abdulkadir Jaime [facility] - [place] , [address] [place] [address] [address] [facility] [id number] 0 Phone: () - 01/06 CBC w/ auto diff Cayetano # (ANC) K/uL 1.6 6.6 2.9 FINAL Abdulkadir Jaime [facility] - [place], [address] [place] [id number] 0 Phone: () - 01/06 CBC w/ auto diff Cayetano % % 43.0 74.0 52.3 FINAL Abdulkadirshell Campbell a [facility] - [place], [address] [place] [id number] 0 Phone: () - 01/06 CBC w/ auto diff IG % % 0.0 0.5 0.2 FINAL Abdulkadirshell Rajanot a [facility] - [place], [address] [place] [id number] 0 Phone: () - 01/06 CBC w/ auto diff IG # K/uL 0.0 0.03 0.01 FINAL Abdulkadirshell Rajanot a [facility] - [place], [address] [place] [id number] 0 Phone: () - 01/06 CBC w/ auto diff LY % % 14.0 41.0 31.1 FINAL Abdulkadirshell Campbell a [facility] - [place], [address] [place] [id number] 0 Phone: () - 01/06 CBC w/ auto diff MO % % 6.0 15.0 9.1 FINAL Abdulkadirshell Campbell a [facility] - [place], [address] [place] [id number] 0 Phone: () - 01/06 CBC w/ auto diff EO % % 0.0 7.0 6.8 FINAL Abdulkadirshell Campbell a [facility] - [place], [address] [place] [id number] 0 Phone: () - 01/06 CBC w/ auto diff BA % % 0.0 2.0 0.5 FINAL Abdulkadir Rajanot a [facility] - [place], [address] [place] [id number] 0 Phone: () - 01/06 CBC w/ auto diff LY # K/uL 0.4 3.6 1.7 FINAL Abdulkadir Jaime Rajanot a [facility] - [place], [address] [place] [id number] 0 Phone: () - 01/06 CBC w/ auto diff MO # K/uL 0.2 1.3 0.5 FINAL Abdulkadir Jaime Rajanot a [facility] - [place], [address] [place] [id number] 0 Phone: () - 01/06 CBC w/ auto diff EO # K/uL 0.0 0.6 0.4 FINAL Abdulkadir Jaime Rajanot a [facility] - [place], [address] [place] [id number] 0 Phone: () - 01/06 CBC w/ auto diff BA # K/uL 0.0 0.2 0.0 FINAL Abdulkadir Jaime Rajanot a [facility] - [place], [address] [place] [id number] 0 Phone: () - 01/06 CBC w/ auto diff NRBC % #/100W BC 0.0 0.2 0.0 FINAL Abdulkadir Jaime Rajanot a [facility] - [place], [address] [place] [id number] 0 Phone: () - 01/06 CBC w/ auto diff RBC M/uL 4.2 5.6 3.75 Low FINAL Abdulkadir Jaime Rajanot a [facility] - [place], [address] [place] [id number] 0 Phone: () - 01/06 CBC w/ auto diff HCT % 39.0 49.0 34.1 Low FINAL Abdulkadir Jaime Rajanot a [facility] - [place], [address] [place] [id number] 0 Phone: () - 01/06 CBC w/ auto diff MCV fL 80.0 104.0 90.9 FINAL Abdulkadir Jaime Rajanot a [facility] - [place], [address] [place] [id number] 0 Phone: () - 01/06 CBC w/ auto diff MCH pg 26.0 35.0 29.3 FINAL Abdulkadirshell weinberg On[facility] - [place], [address] [facility] [address] [place] [id number] 0 Phone: () - 01/06 CBC w/ auto diff MCHC g/dL 30.0 35.0 32.3 FINAL Abdulkadir Jaime weinberg [facility] - [place], [address] [facility] [address] [place] [id number] 0 Phone: () - 01/06 CBC w/ auto diff MPV fL 9.5 13.4 10.0 FINAL Abdulkadirshell weinberg [facility] - [place], [address] [facility] [address] [place] [id number] 0 Phone: () - 01/06 CBC w/ auto diff RDW % 11.3 15.6 13.60 FINAL Abdulkadirshell weinberg [facility] - [place], [address] [facility] [address] [place] [id number] 0 Phone: () - 01/06 CMP Album in g/dL 3.2 5.2 4.0 FINAL Abdulkadirshell Rajan a [facility], [address] [facility] [address] [place] [address] [id number] 0 Phone: () - 01/06 CMP Alkal ine phosp hatas e U/L 46.0 116.0 105 FINAL Abdulkadir Jaime Rajan a [facility], [address] [facility] [address] [place] [address] [id number] 0 Phone: () - 01/06 CMP ALT/S GPT U/L 7.0 40.0 29 FINAL Abdulkadir Jaime Rajan a [facility], [address] [facility] [address] [facility] [id number] 0 Phone: () - 01/06 CMP AST/S GOT U/L 13.0 40.0 45 High FINAL Abdulkadir Jaime Rajan a [facility], [address] [facility] [address] [place] [address] [id number] 0 Phone: () - 01/06 CMP BUN mg/dL 9.0 23.0 25 High FINAL [facility] Jaime [facility], [facility] [address] [facility] 100 [facility] [id number] 0 Phone: () - 01/06 CMP Calci um mg/dL 8.7 10.4 10.1 FINAL [facility] [address] [facility] 100 [facility] [id number] 0 Phone: () - 01/06 CMP Chlor narinder mmol/L 96.0 114.0 108 FINAL [place] [address] [id number] 0 Phone: () - 01/06 CMP CO2 [...] of the 96 hour stability window. FINAL [facility] Jaime [place] [address] [id number] 0 Phone: () - 01/06 CMP Creat inine mg/dL 0.5 1.2 1.14 FINAL [place] [address] [id number] 0 Phone: () - 01/06 CMP GFR estim ate ml/min /1.73m ^2 63.7 GFR is calculate d using the CKD-EPI equation. [facility]AL [facility], [facility] [address] [id number] 0 Phone: () - 01/06 CMP Gluco se mg/dL 73.0 126.0 119 FINAL [facility] Sand[facility], [address] [id number] 0 Phone: () - 01/06 CMP Potas sium mmol/L 3.5 5.1 3.9 FINAL [facility] [address] [id number] 0 Phone: () - 01/06 CMP Sodiu m mmol/L 136.0 145.0 144 FINAL [facility] [address] [id number] 0 Phone: () - 01/06 CMP Bilir ubin, total mg/dL 0.3 1.2 0.2 Low FINAL [place] [address] [id number] 0 Phone: () - 01/06 CMP Total prote in g/dL 5.7 8.2 6.5 FINAL [place] [address] [id number] 0 Phone: () - 01/06 PSA diagn ostic panel PSA ng/ml 0.0 4.0 0.30 Test performed at [facility] on a [employer] Immuno[employer] ay Analyzer that uses an immunoenz ymometric sandwich assay for analysis. Patient testing should not be performed using multiple methodunruly plaza due to analytica l variation seen between test malik plaza. FINAL [place] [address] [id number] 0 Phone: () - 02/07 CMP Album in g/dL 3.2 5.2 3.9 FINAL [place] [address] [id number] 0 Phone: () - 02/07 CMP Alkal ine phosp hatas e U/L 46.0 116.0 102 FINAL [place] [address] [id number] 0 Phone: () - 02/07 CMP ALT/S GPT U/L 7.0 40.0 30 FINAL [place] [address] [id number] 0 Phone: () - 02/07 CMP AST/S GOT U/L 13.0 40.0 48 High FINAL [facility] [address] [facility] 100 [facility] [id number] 0 Phone: () - 02/07 CMP BUN mg/dL 9.0 23.0 25 High FINAL [facility], [address] [facility] [address] [facility] [id number] 0 Phone: () - 02/07 CMP Calci um mg/dL 8.7 10.4 9.5 FINAL [facility], [address] [facility] 100 [facility] [id number] 0 Phone: () - 02/07 CMP Chlor narinder mmol/L 96.0 114.0 106 FINAL [facility] [address] [facility] [address] [id number] 0 Phone: () - 02/07 CMP CO2 [...] of the 96 hour stability window. FINAL [facility], [address] [id number] 0 Phone: () - 02/07 CMP Creat inine mg/dL 0.5 1.2 1.13 FINAL [facility], [address] [facility] [address] [place] [address] [id number] 0 Phone: () - 02/07 CMP GFR estim ate ml/min /1.73m ^2 64.4 GFR is calculate d using the CKD-EPI equation. FINAL [facility], [address] [facility] [address] [facility] [id number] 0 Phone: () - 02/07 CMP Gluco se mg/dL 73.0 126.0 92 FINAL [facility], [address] [facility] 100 [facility] [id number] 0 Phone: () - 02/07 CMP Potas sium mmol/L 3.5 5.1 3.7 FINAL [facility], [address] [facility] 100 [facility] [phone] 0 Phone: () - 02/07 CMP Sodiu m mmol/L 136.0 145.0 144 FINAL [facility] [address] [facility] 100 [facility] [id number] 0 Phone: () - 02/07 CMP Bilir ubin, total mg/dL 0.3 1.2 0.2 Low FINAL [facility] [address] [id number] 0 Phone: () - 02/07 CMP Total prote in g/dL 5.7 8.2 6.3 FINAL [facility] [address] [id number] 0 Phone: () - 02/07 PSA diagn ostic panel PSA ng/ml 0.0 4.0 0.30 Test performed at [facility] on a [employer] Immunoass ay Analyzer that uses an immunoenz ymometric sandwich assay for analysis. Patient testing should not be performed using multiple methodolo gies due to analytica l variation seen between test methodolo gies. FINAL [facility], [address] [facility] 100 [facility] [phone] 0 Phone: () - 02/07 CBC w/ auto diff WBC K/uL 3.0 8.9 3.6 FINAL [facility] - [place], [address] [place] [id number] 0 Phone: () - 02/07 CBC w/ auto diff HGB g/dL 12.5 16.6 11.9 Low FINAL [facility] - [place], [address] [place] [id number] 0 Phone: () - 02/07 CBC w/ auto diff PLT K/uL 113.0 364.0 184 FINAL [facility] Jaime Campbell a [facility] - [place], [address] [place] [id number] 0 Phone: () - 02/07 CBC w/ auto diff Cayetano # (ANC) K/uL 1.6 6.6 1.8 FINAL [facility] Jaime Campbell a [facility] - [place], [address] [place] [id number] 0 Phone: () - 02/07 CBC w/ auto diff Cayetano % % 43.0 74.0 48.3 FINAL [facility] Jaime Campbell [facility] - [place], [address] [place] [id number] 0 Phone: () - 02/07 CBC w/ auto diff IG % % 0.0 0.5 0.3 FINAL [facility] Jaime Campbell [facility] - [place], [address] [place] [id number] 0 Phone: () - 02/07 CBC w/ auto diff IG # K/uL 0.0 0.03 0.01 FINAL Abd[facility]adirshell Campbell a [facility] - [place], [address] [place] [id number] 0 Phone: () - 02/07 CBC w/ auto diff LY % % 14.0 41.0 32.6 FINAL Abd[facility] Jaime Campbell a [facility] - [place], [address] [place] [id number] 0 Phone: () - 02/07 CBC w/ auto diff MO % % 6.0 15.0 15.5 High FINAL Abd[facility]adirshell Rajanot a [facility] - [place], [address] [place] [id number] 0 Phone: () - 02/07 CBC w/ auto diff EO % % 0.0 7.0 3.0 FINAL [facility] [place] [facility] [place], [address] [place] [id number] 0 Phone: () - 02/07 CBC w/ auto diff BA % % 0.0 2.0 0.3 FINAL Abd[facility] Jaime Rajanot a [facility] - [place], [address] [place] [id number] 0 Phone: () - 02/07 CBC w/ auto diff LY # K/uL 0.4 3.6 1.2 FINAL Abd[facility] Jaime Rajanot a [facility] - [place], [address] [place] [id number] 0 Phone: () - 02/07 CBC w/ auto diff MO # K/uL 0.2 1.3 0.6 FINAL Abd[facility] Jaime Rajanot a [facility] - [place], [address] [place] [id number] 0 Phone: () - 02/07 CBC w/ auto diff EO # K/uL 0.0 0.6 0.1 FINAL [facility] Jaime Rajanot a [facility] - [place], [address] [place] [id number] 0 Phone: () - 02/07 CBC w/ auto diff BA # K/uL 0.0 0.2 0.0 FINAL Abdulkadir Jaime Rajanot a [facility] - [place], [address] [place] [id number] 0 Phone: () - 02/07 CBC w/ auto diff NRBC % #/100W BC 0.0 0.2 0.0 FINAL Abd[facility]ir Jaime Rajanot a [facility] - [place], [address] [place] [id number] 0 Phone: () - 02/07 CBC w/ auto diff RBC M/uL 4.2 5.6 4.07 Low FINAL Abd[facility]ir Jaime Rajanot a [facility] - [place], [address] [place] [id number] 0 Phone: () - 02/07 CBC w/ auto diff HCT % 39.0 49.0 36.0 Low FINAL Abdulkadir Jaime weinberg [facility] - [place], [address] [facility] [address] [place] [id number] 0 Phone: () - 02/07 CBC w/ auto diff MCV fL 80.0 104.0 88.5 FINAL Abdulkadir Jaime weinberg [facility] - [place], [address] [place] [address] d [address] [place] [id number] 0 Phone: () - 02/07 CBC w/ auto diff MCH pg 26.0 35.0 29.2 FINAL Abdulkadir Jaime weinberg [facility] - [place], [address] [facility] [address] [place] [id number] 0 Phone: () - 02/07 CBC w/ auto diff MCHC g/dL 30.0 35.0 33.1 FINAL Abdulkadir Jaime weinberg [facility] - [place], [address] [facility] [address] [place] [id number] 0 Phone: () - 02/07 CBC w/ auto diff MPV fL 9.5 13.4 10.9 FINAL Abd[facility]ir Jaime weinberg [facility] - [place], [address] [place] [address] [address] [place] [id number] 0 Phone: () - 02/07 CBC w/ auto diff RDW % 11.3 15.6 14.50 FINAL Abdulkadir Jaime weinberg [facility] - [place], [address] [place] [address] [address] [place] [id number] 0 Phone: () - 03/31 CMP Album in g/dL 3.2 5.2 4.0 FINAL Abdulk[facility]ir Jaime Rajan a [facility], [facility] N [facility] [address] [place] [address] [phone] 0 Phone: () - 03/31 CMP Alkal ine phosp hatas e U/L 46.0 116.0 87 FINAL Abd[facility]ir Jaime Rajan a [facility], [address] [facility] [address] [place] [address] [place] [id number] 0 Phone: () - 03/31 CMP ALT/S GPT U/L 7.0 40.0 17 FINAL [facility], [address] [facility] [id number] 0 Phone: () - 03/31 CMP AST/S GOT U/L 13.0 40.0 33 FINAL [facility] [address] [facility] 100 [facility] [id number] 0 Phone: () - 03/31 CMP BUN mg/dL 9.0 23.0 24 High FINAL [place] [address] [address] [facility] [address] [id number] 0 Phone: () - 03/31 CMP Calci um mg/dL 8.7 10.4 10.6 High FINAL [place] [address] [address] [facility] [address] [id number] 0 Phone: () - 03/31 CMP Chlor narinder mmol/L 96.0 114.0 106 FINAL [facility], [address] [facility] [address] [id number] 0 Phone: () - 03/31 CMP CO2 [...] of the 96 hour stability window. FINAL [facility], [address] [facility] [address] [place] [address] [phone] 0 Phone: () - 03/31 CMP Creat inine mg/dL 0.5 1.2 1.33 High FINAL [facility], [address] [place] [address] [id number] 0 Phone: () - 03/31 CMP GFR estim ate ml/min /1.73m ^2 52.9 Low GFR is calculate d using the CKD-EPI equation. FINAL [facility] Jaime Rajan sultana [facility], [address] [facility] [address] [facility] [id number] 0 Phone: () - 03/31 CMP Gluco se mg/dL 73.0 126.0 89 FINAL [facility] Jaime weinberg [facility], [address] [facility] [id number] 0 Phone: () - 03/31 CMP Potas sium mmol/L 3.5 5.1 4.3 FINAL [facility] Jaime weinberg [facility], [address] [place] [address] [id number] 0 Phone: () - 03/31 CMP Sodiu m mmol/L 136.0 145.0 144 FINAL [facility], [address] [facility] [address] [facility] [id number] 0 Phone: () - 03/31 CMP Bilir ubin, total mg/dL 0.3 1.2 0.3 FINAL [facility] Jaime Rajan sultana [facility], [address] [facility] [address] [place] [address] [id number] 0 Phone: () - 03/31 CMP Total prote in g/dL 5.7 8.2 6.3 FINAL [facility] Jaime Rajan sultana [facility], [address] [place] [address] [id number] 0 Phone: () - 03/31 CBC w/ auto diff WBC K/uL 3.0 8.9 6.1 FINAL [facility] Jaime weinberg [facility] - [place] , [address] [place] [address] [place] [address] [place] [id number] 0 Phone: () - 03/31 CBC w/ auto diff HGB g/dL 12.5 16.6 10.3 Low FINAL [facility] Jaime weinberg Oncology [place] , [address] [place] [address] [address] [facility] [place] [id number] 0 Phone: () - 03/31 CBC w/ auto diff PLT K/uL 113.0 364.0 257 FINAL [facility] Jaime Rajan sultana Oncology [place], [address] [place] [id number] 0 Phone: () - 03/31 CBC w/ auto diff Cayet[place] # (ANC) K/uL 1.6 6.6 3.7 FINAL [facility] Jaime Rajanot a [facility] - [place], [address] [place] [id number] 0 Phone: () - 03/31 CBC w/ auto diff Cayet[place] % % 43.0 74.0 59.8 FINAL Abdulkadir Jaime Rajanot a [facility] - [place], [address] [place] [id number] 0 Phone: () - 03/31 CBC w/ auto diff IG % % 0.0 0.5 0.3 FINAL Abdulkadir Jaime Rajanot a [facility] - [place], [address] [place] [id number] 0 Phone: () - 03/31 CBC w/ auto diff IG # K/uL 0.0 0.03 0.02 FINAL Abdulkadir Jaime Rajanot a [facility] - [place], [address] [place] [id number] 0 Phone: () - 03/31 CBC w/ auto diff LY % % 14.0 41.0 27.9 FINAL Abdulkadir Jaime Rajanot a [facility] - [place], [address] [place] [id number] 0 Phone: () - 03/31 CBC w/ auto diff MO % % 6.0 15.0 10.0 FINAL Abdulkadir Jaime Rajanot a [facility] - [place], [address] [place] [id number] 0 Phone: () - 03/31 CBC w/ auto diff EO % % 0.0 7.0 1.5 FINAL Abdulkadir Jaime Rajanot a [facility] - [place], [address] [place] [id number] 0 Phone: () - 03/31 CBC w/ auto diff BA % % 0.0 2.0 0.5 FINAL Abdulkadir Jaime Rajanot a [facility] - [place], [address] [place] [id number] 0 Phone: () - 03/31 CBC w/ auto diff LY # K/uL 0.4 3.6 1.7 FINAL Abd[facility]adir Jaime Rajanot a [facility] - [place], [address] [place] [id number] 0 Phone: () - 03/31 CBC w/ auto diff MO # K/uL 0.2 1.3 0.6 FINAL Abdulkadir Jaime Rajanot a [facility] - [place], [address] [place] [id number] 0 Phone: () - 03/31 CBC w/ auto diff EO # K/uL 0.0 0.6 0.1 FINAL Abd[facility]ir Jaime Rajanot a [facility] - [place], [address] [place] [id number] 0 Phone: () - 03/31 CBC w/ auto diff BA # K/uL 0.0 0.2 0.0 FINAL Abdulkadir Jaime Rajanot a [facility] - [place], [address] [place] [id number] 0 Phone: () - 03/31 CBC w/ auto diff NRBC % #/100W BC 0.0 0.2 0.0 FINAL Abdulkadir Jaime Rajanot a [facility] - [place], [address] [place] [id number] 0 Phone: () - 03/31 CBC w/ auto diff RBC M/uL 4.2 5.6 3.50 Low FINAL Abdulkadir Jaime Rajanot a [facility] - [place], [address] [place] [id number] 0 Phone: () - 03/31 CBC w/ auto diff HCT % 39.0 49.0 31.4 Low FINAL Abdulkadir Jaime Rajanot a [facility] - [place], [address] [place] [id number] 0 Phone: () - 03/31 CBC w/ auto diff MCV fL 80.0 104.0 89.7 FINAL Abdulkadir Jaime Rajanot a [facility] - [place], [address] [place] [id number] 0 Phone: () - 03/31 CBC w/ auto diff MCH pg 26.0 35.0 29.4 FINAL Abdulkadir Jaime Rajanot a [facility] - [place], [address] [place] [id number] 0 Phone: () - 03/31 CBC w/ auto diff MCHC g/dL 30.0 35.0 32.8 FINAL Abdulkadir Jaime Rajanot a [facility] - [place], [address] [place] [id number] 0 Phone: () - 03/31 CBC w/ auto diff MPV fL 9.5 13.4 9.9 FINAL Abd[facility]adir Jaime Campbell a [facility] - [place], [address] [place] [id number] 0 Phone: () - 03/31 CBC w/ auto diff RDW % 11.3 15.6 15.00 FINAL Abdulkadir Jaime Campbell a [facility] - [place], [address] [place] [id number] 0 Phone: () - 05/02 CBC w/ auto diff WBC K/uL 3.0 8.9 4.9 FINAL Abdulkadir Jaime Rajanot a [facility] - [place], [address] [place] [id number] 0 Phone: () - 05/02 CBC w/ auto diff HGB g/dL 12.5 16.6 10.7 Low FINAL Abdulkadir Jaime Rajanot a [facility] - [place], [address] [place] [id number] 0 Phone: () - 05/02 CBC w/ auto diff PLT K/uL 113.0 364.0 225 FINAL Abdulkadir Jaime Rajanot a [facility] - [place], [address] [place] [id number] 0 Phone: () - 05/02 CBC w/ auto diff Cayetano # (ANC) K/uL 1.6 6.6 2.6 FINAL Abdulkadir Jaime Rajanot a [facility] - [place], [address] [place] [id number] 0 Phone: () - 05/02 CBC w/ auto diff Cayetano % % 43.0 74.0 53.8 FINAL Abdulkadir Jaime Rajanot a [facility] - [place], [address] [place] [id number] 0 Phone: () - 05/02 CBC w/ auto diff IG % % 0.0 0.5 0.2 FINAL Abdulkadir Jaime Rajanot a [facility] - [place], [address] [place] [id number] 0 Phone: () - 05/02 CBC w/ auto diff IG # K/uL 0.0 0.03 0.01 FINAL Abdulkadir Jaime Rajanot a [facility] - [place], [address] [place] [id number] 0 Phone: () - 05/02 CBC w/ auto diff LY % % 14.0 41.0 31.7 FINAL Abdulkadir Jaime Rajanot a [facility] - [place], [address] [place] [id number] 0 Phone: () - 05/02 CBC w/ auto diff MO % % 6.0 15.0 11.5 FINAL Abdulkadir Jaime Rajanot a [facility] - [place], [address] [place] [id number] 0 Phone: () - 05/02 CBC w/ auto diff EO % % 0.0 7.0 2.0 FINAL Abdulkadir Jaime Rajanot a [facility] - [place], [address] [place] [id number] 0 Phone: () - 05/02 CBC w/ auto diff BA % % 0.0 2.0 0.8 FINAL Abdulkadir Jaime Rajanot a [facility] - [place], [address] [place] [id number] 0 Phone: () - 05/02 CBC w/ auto diff LY # K/uL 0.4 3.6 1.6 FINAL Abdulkadir Jaime Rajanot a [facility] - [place], [address] [place] [id number] 0 Phone: () - 05/02 CBC w/ auto diff MO # K/uL 0.2 1.3 0.6 FINAL Abdulkadir Jaime Rajanot a [facility] - [place], [address] [place] [id number] 0 Phone: () - 05/02 CBC w/ auto diff EO # K/uL 0.0 0.6 0.1 FINAL Abdulkadir Jaime Rajanot a [facility] - [place], [address] [place] [id number] 0 Phone: () - 05/02 CBC w/ auto diff BA # K/uL 0.0 0.2 0.0 FINAL Abdulkadir Jaime Campbell a [facility] - [place], [address] [place] [id number] 0 Phone: () - 05/02 CBC w/ auto diff NRBC % #/100W BC 0.0 0.2 0.0 FINAL Abdulkadir Jaime Rajanot a [facility] - [place], [address] [place] [id number] 0 Phone: () - 05/02 CBC w/ auto diff RBC M/uL 4.2 5.6 3.68 Low FINAL Abdulkadir Jaime Rajanot a [facility] - [place], [address] [place] [id number] 0 Phone: () - 05/02 CBC w/ auto diff HCT % 39.0 49.0 32.6 Low FINAL Abdulkadir Jaime Campbell a [facility] - [place], [address] [place] [id number] 0 Phone: () - 05/02 CBC w/ auto diff MCV fL 80.0 104.0 88.6 FINAL Abdulkadirshell Campbell a [facility] - [place], [address] [place] [id number] 0 Phone: () - 05/02 CBC w/ auto diff MCH pg 26.0 35.0 29.1 FINAL Abdulkadir Jaime Campbell a [facility] - [place], [address] [place] [id number] 0 Phone: () - 05/02 CBC w/ auto diff MCHC g/dL 30.0 35.0 32.8 FINAL Abdulkadir Jaime weinberg [facility] - [place], [address] [place] [id number] 0 Phone: () - 05/02 CBC w/ auto diff MPV fL 9.5 13.4 9.7 FINAL Abdulkadir Jaime weinberg [facility] - [place], [address] [place] [id number] 0 Phone: () - 05/02 CBC w/ auto diff RDW % 11.3 15.6 14.20 FINAL Abdulkadir Jaime weinberg [facility] - [place], [address] [place] [id number] 0 Phone: () - 05/02 PSA diagn ostic panel PSA ng/ml 0.0 4.0 0.20 Test performed at [facility] on a [employer] Immunoass ay Analyzer that uses an immunoenz ymometric sandwich assay for analysis. Patient testing should not be performed using multiple methodunruly plaza due to analytica l variation seen between test malik plaza. FINAL Abdulkadir Jaime Campbell a [facility] - [place], [address] [place] [id number] 0 Phone: () - 05/02 CMP Album in g/dL 3.2 5.2 4.1 FINAL [facility], [address] [facility] [address] [id number] 0 Phone: () - 05/02 CMP Alkal ine phosp hatas e U/L 46.0 116.0 85 FINAL [facility] [address] [facility] [address] [id number] 0 Phone: () - 05/02 CMP ALT/S GPT U/L 7.0 40.0 24 FINAL [place] [address] [address] [facility] [address] [id number] 0 Phone: () - 05/02 CMP AST/S GOT U/L 13.0 40.0 45 High FINAL [facility] [address] [id number] 0 Phone: () - 05/02 CMP BUN mg/dL 9.0 23.0 20 FINAL [place] [address] [address] [facility] [address] [id number] 0 Phone: () - 05/02 CMP Calci um mg/dL 8.7 10.4 10.5 High FINAL [place] [address] [id number] 0 Phone: () - 05/02 CMP Chlor narinder mmol/L 96.0 114.0 106 FINAL [place] [address] [id number] 0 Phone: () - 05/02 CMP CO2 [...] of the 96 hour stability window. FINAL [facility], [facility] [address] [facility] [address] [id number] 0 Phone: () - 05/02 CMP Creat inine mg/dL 0.5 1.2 1.35 High FINAL [facility], [facility] N [address] [id number] 0 Phone: () - 05/02 CMP GFR estim ate ml/min /1.73m ^2 51.9 Low GFR is calculate d using the CKD-EPI equation. FINAL [facility] Jaime [place] [address] [id number] 0 Phone: () - 05/02 CMP Gluco se mg/dL 73.0 126.0 94 FINAL [facility] Jaime [place] [address] [id number] 0 Phone: () - 05/02 CMP Potas sium mmol/L 3.5 5.1 4.3 FINAL [facility] Jaime [place] [address] [id number] 0 Phone: () - 05/02 CMP Sodiu m mmol/L 136.0 145.0 144 FINAL [facility] Jaime [place] [address] [id number] 0 Phone: () - 05/02 CMP Bilir ubin, total mg/dL 0.3 1.2 0.3 FINAL [facility] [place] [address] [id number] 0 Phone: () - 05/02 CMP Total prote in g/dL 5.7 8.2 6.5 FINAL [facility], [facility] N [address] [id number] 0 Phone: () - 07/25 CBC w/ auto diff WBC K/uL 3.0 8.9 6.1 FINAL [facility] Jaime [facility], [address] [facility] [id number] 0 Phone: () - 07/25 CBC w/ auto diff HGB g/dL 12.5 16.6 11.8 Low FINAL Abdulkadir Jaime Campbell [facility] - [place], [address] [place] [id number] 0 Phone: () - 07/25 CBC w/ auto diff PLT K/uL 113.0 364.0 263 FINAL Abdulkadir Jaime weinberg [facility] - [place], [address] [place] [id number] 0 Phone: () - 07/25 CBC w/ auto diff Plate let, immat ure, fract ion % 0.9 11.2 No result FINAL Abdulkadir Jaime Campbell [facility] - [place], [address] [place] [id number] 0 Phone: () - 07/25 CBC w/ auto diff Cayet[place] # (ANC) K/uL 1.6 6.6 3.3 FINAL Abdulkadir Jaime we[facility] - [place], [address] [place] [id number] 0 Phone: () - 07/25 CBC w/ auto diff Cayetano % % 43.0 74.0 54.9 FINAL Abdulkadir Jaime weinberg [facility] - [place], [address] [place] [id number] 0 Phone: () - 07/25 CBC w/ auto diff IG % % 0.0 0.5 0.2 FINAL Abdulkadir Jaime Campbell [facility] - [place], [address] [place] [id number] 0 Phone: () - 07/25 CBC w/ auto diff IG # K/uL 0.0 0.03 0.01 FINAL Abdulkadir Jaime Campbell a [facility] - [place], [address] [place] [id number] 0 Phone: () - 07/25 CBC w/ auto diff LY % % 14.0 41.0 23.3 FINAL Abdulkadir Jaime Campbell [facility] - [place], [address] [place] [id number] 0 Phone: () - 07/25 CBC w/ auto diff MO % % 6.0 15.0 11.7 FINAL Abdulkadirshell Rajanot a [facility] - [place], [address] [place] [id number] 0 Phone: () - 07/25 CBC w/ auto diff EO % % 0.0 7.0 9.4 High FINAL Abdulkadirshell Rajanot a [facility] - [place], [address] [place] [id number] 0 Phone: () - 07/25 CBC w/ auto diff BA % % 0.0 2.0 0.5 FINAL Abdulkadirshell Rajanot a [facility] - [place], [address] [place] [id number] 0 Phone: () - 07/25 CBC w/ auto diff LY # K/uL 0.4 3.6 1.4 FINAL Abdulkadirshell Campbell [facility] - [place], [address] [place] [id number] 0 Phone: () - 07/25 CBC w/ auto diff MO # K/uL 0.2 1.3 0.7 FINAL Abdulkadir Campbell [facility] - [place], [address] [place] [id number] 0 Phone: () - 07/25 CBC w/ auto diff EO # K/uL 0.0 0.6 0.6 FINAL Abdulkadirshell Rajanot a [facility] - [place], [address] [place] [id number] 0 Phone: () - 07/25 CBC w/ auto diff BA # K/uL 0.0 0.2 0.0 FINAL Abdulkadir Rajanot a [facility] - [place], [address] [place] [id number] 0 Phone: () - 07/25 CBC w/ auto diff NRBC % #/100W BC 0.0 0.2 0.0 FINAL Abdulkadir Jaime Rajanot a [facility] - [place], [address] [place] [id number] 0 Phone: () - 07/25 CBC w/ auto diff RBC M/uL 4.2 5.6 3.89 Low FINAL Abdulkadir Jaime Rajanot [facility] - [place], [address] [place] [id number] 0 Phone: () - 07/25 CBC w/ auto diff HCT % 39.0 49.0 36.0 Low FINAL Abdulkadir Jaime Rajanot a [facility] - [place], [address] [place] [id number] 0 Phone: () - 07/25 CBC w/ auto diff MCV fL 80.0 104.0 92.5 FINAL Abdulkadir Jaime [facility]anot [facility] - [place], [address] [place] [id number] 0 Phone: () - 07/25 CBC w/ auto diff MCH pg 26.0 35.0 30.3 FINAL Abdulkadir Jaime [facility]ot [facility] - [place], [address] [place] [id number] 0 Phone: () - 07/25 CBC w/ auto diff MCHC g/dL 30.0 35.0 32.8 FINAL Abdulkadir Jaime Rajanot [facility] - [place], [address] [place] [id number] 0 Phone: () - 07/25 CBC w/ auto diff MPV fL 9.5 13.4 9.7 FINAL Abdulkadir Jaime [facility]ot [facility] - [place], [address] [place] [id number] 0 Phone: () - 07/25 CBC w/ auto diff RDW % 11.3 15.6 14.80 FINAL Abdlukadir Jaime Rajanot a [facility] - [place], [address] [place] [id number] 0 Phone: () - 07/25 CBC w/ auto diff Auto CBC comme nts No result FINAL [facility] Jaime Rajan sultana [facility], [address] [address] [place] [id number] 0 Phone: () - 07/25 PSA diagn ostic panel PSA ng/ml 0.0 4.0 0.10 Test performed at [facility] on a SunFunder Immunoass ay Analyzer that uses an immunoenz ymometric sandwich assay for analysis. Patient testing should not be performed using multiple methodolo gies due to analytica l variation seen between test methodolo gies. FINAL [facility] [place] [address] [address] [facility] [address] [place] [address] [phone] 0 Phone: () - 07/25 CMP Album in g/dL 3.2 5.2 4.0 FINAL [facility] [address] [facility] [address] [place] [address] [id number] 0 Phone: () - 07/25 CMP Alkal ine phosp hatas e U/L 46.0 116.0 105 FINAL [facility] [address] [facility] [address] [place] [address] [id number] 0 Phone: () - 07/25 CMP ALT/S GPT U/L 7.0 40.0 13 FINAL [facility] [address] [facility] [address] [place] [address] [phone] 0 Phone: () - 07/25 CMP AST/S GOT U/L 13.0 40.0 26 FINAL [facility] [address] [place] [address] [id number] 0 Phone: () - 07/25 CMP BUN mg/dL 9.0 23.0 22 FINAL [facility] [address] [place] [address] [id number] 0 Phone: () - 07/25 CMP Calci um mg/dL 8.7 10.4 9.6 FINAL [facility], [address] [id number] 0 Phone: () - 07/25 CMP Chlor narinder mmol/L 96.0 114.0 106 FINAL Abdulkadirsavannah Sandoval [place] [address] [id number] 0 Phone: () - 07/25 CMP CO2 [...] 96 hour stability window. FINAL Abdulkadir Jain [address] [phone] 0 Phone: () - 07/25 CMP Creat inine mg/dL 0.5 1.2 1.09 FINAL [facility] Jaime [address] [phone] 0 Phone: () - 07/25 CMP GFR estim ate ml/min /1.73m ^2 67.0 GFR is calculate d using the CKD-EPI equation. FINAL Abdulkadir Jain [place] [address] [id number] 0 Phone: () - 07/25 CMP Gluco se mg/dL 73.0 126.0 96 FINAL [facility] Jaime [address] [id number] 0 Phone: () - 07/25 CMP Potas sium mmol/L 3.5 5.1 4.[address] [id number] 0 Phone: () - 07/25 CMP Sodiu m mmol/L 136.0 145.0 142 FINAL [facility] [place] [address] [id number] 0 Phone: () - 07/25 CMP Bilir ubin, total mg/dL 0.3 1.2 0.3 FINAL Abdulkadirshell weinberg [facility], [address] [facility] [address] [place] [id number] 0 Phone: () - 07/25 CMP Total prote in g/dL 5.7 8.2 6.4 FINAL Abdulkadirshell weinberg [facility], [address] [facility] [address] [facility] [id number] 0 Phone: () - 10/24 PSA diagn ostic panel PSA ng/ml 0.0 4.0 0.10 Test performed at [facility] on a Sun[employer] Immunoass ay Analyzer that uses an immunoenz ymometric sandwich assay for analysis. Patient testing should not be performed using multiple methodunruly plaza due to analytica l variation seen between test methodunruly plaza. FINAL Abdulkadirshell weinberg [facility], [address] [facility] [address] [facility] [id number] 0 Phone: () - 10/24 CBC w/ auto diff WBC K/uL 3.0 8.9 4.2 FINAL Abdulkadirshell weinberg [facility] - [place], [address] [place] [id number] 0 Phone: () - 10/24 CBC w/ auto diff HGB g/dL 12.5 16.6 10.1 Low FINAL Abdulkadirshell weinberg [facility] - [place], [address] [place] [phone] 0 Phone: () - 10/24 CBC w/ auto diff PLT K/uL 113.0 364.0 269 FINAL Abdulkadirshell Campbell a [facility] - [place], [address] [place] [id number] 0 Phone: () - 10/24 CBC w/ auto diff Cayetano # (ANC) K/uL 1.6 6.6 2.1 FINAL Abdulkadirshell Campbell a [facility] - [place], [address] [place] [id number] 0 Phone: () - 10/24 CBC w/ auto diff Cayetano % % 43.0 74.0 50.7 FINAL Abdulkadir Jaime Rajanot a [facility] - [place], [address] [place] [id number] 0 Phone: () - 10/24 CBC w/ auto diff IG % % 0.0 0.5 0.0 FINAL Abdulkadir Jaime Rajanot a [facility] - [place], [address] [place] [id number] 0 Phone: () - 10/24 CBC w/ auto diff IG # K/uL 0.0 0.03 0.00 FINAL Abdulkadir Jaime Rajanot a [facility] - [place], [address] [place] [id number] 0 Phone: () - 10/24 CBC w/ auto diff LY % % 14.0 41.0 34.9 FINAL Abdulkadir Jaime Rajanot a [facility] - [place], [address] [place] [id number] 0 Phone: () - 10/24 CBC w/ auto diff MO % % 6.0 15.0 11.2 FINAL Abdulkadir Jaime Rajanot a [facility] - [place], [address] [place] [id number] 0 Phone: () - 10/24 CBC w/ auto diff EO % % 0.0 7.0 2.2 FINAL Abdulkadir Jaime Rajanot a [facility] - [place], [address] [place] [id number] 0 Phone: () - 10/24 CBC w/ auto diff BA % % 0.0 2.0 1.0 FINAL Abdulkadir Jaime Rajanot a [facility] - [place], [address] [place] [id number] 0 Phone: () - 10/24 CBC w/ auto diff LY # K/uL 0.4 3.6 1.5 FINAL Abdulkadir Jaime Rajanot a [facility] - [place], [address] [place] [id number] 0 Phone: () - 10/24 CBC w/ auto diff MO # K/uL 0.2 1.3 0.5 FINAL Abdulkadir Jaime Rajanot a [facility] - [place], [address] [place] [id number] 0 Phone: () - 10/24 CBC w/ auto diff EO # K/uL 0.0 0.6 0.1 FINAL Abdulkadir Jaime Rajanot a [facility] - [place], [address] [place] [id number] 0 Phone: () - 10/24 CBC w/ auto diff BA # K/uL 0.0 0.2 0.0 FINAL Abdulkadir Jaime Rajanot a [facility] - [place], [address] [place] [id number] 0 Phone: () - 10/24 CBC w/ auto diff NRBC % #/100W BC 0.0 0.2 0.0 FINAL Abdulkadir Jaime aRjanot a [facility] - [place], [address] [place] [id number] 0 Phone: () - 10/24 CBC w/ auto diff RBC M/uL 4.2 5.6 3.37 Low FINAL Abdulkadir Jaime Rajanot a [facility] - [place], [address] [place] [id number] 0 Phone: () - 10/24 CBC w/ auto diff HCT % 39.0 49.0 31.2 Low FINAL Abdulkadir Jaime Rajanot a [facility] - [place], [address] [place] [id number] 0 Phone: () - 10/24 CBC w/ auto diff MCV fL 80.0 104.0 92.6 FINAL Abdulkadir Jaime Rajanot a [facility] - [place], [address] [place] [id number] 0 Phone: () - 10/24 CBC w/ auto diff MCH pg 26.0 35.0 30.0 FINAL Abdulkadir Jaime Campbell a [facility] - [place], [address] [place] [id number] 0 Phone: () - 10/24 CBC w/ auto diff MCHC g/dL 30.0 35.0 32.4 FINAL Abdulkadir Jaime Campbell a [facility] - [place], [address] [place] [id number] 0 Phone: () - 10/24 CBC w/ auto diff MPV fL 9.5 13.4 10.1 FINAL Abdulkadir Jaime Campbell a [facility] - [place], [address] [place] [id number] 0 Phone: () - 10/24 CBC w/ auto diff RDW % 11.3 15.6 14.40 FINAL Abdulkadir Jaime Campbell a [facility] - [place], [address] [facility] [address] [place] [id number] 0 Phone: () - 10/24 CMP Album in g/dL 3.2 5.2 4.0 FINAL [facility] Jaime weinberg [facility], [address] [place] [address] [id number] 0 Phone: () - 10/24 CMP Alkal ine phosp hatas e U/L 46.0 116.0 78 FINAL [facility] Jaime Rajan a [facility], [facility] [address] [place] [address] [id number] 0 Phone: () - 10/24 CMP ALT/S GPT U/L 7.0 40.0 12 FINAL [facility] Jaime Rajanot a [facility], [address] [place] [address] [id number] 0 Phone: () - 10/24 CMP AST/S GOT U/L 13.0 40.0 26 FINAL [facility] Jaime Rajan a [facility], [address] [place] [address] [place] [id number] 0 Phone: () - 10/24 CMP BUN mg/dL 9.0 23.0 23 FINAL [facility] [place] [address] [id number] 0 Phone: () - 10/24 CMP Calci um mg/dL 8.7 10.4 10.1 FINAL Abdulkadir [place] [address] [id number] 0 Phone: () - 10/24 CMP Chlor narinder mmol/L 96.0 114.0 107 FINAL Abdulkadir Jain [place] [address] [id number] 0 Phone: () - 10/24 CMP CO2 [...] 96 hour stability window. FINAL Abdulkadir Sandoval [place] [address] [id number] 0 Phone: () - 10/24 CMP Creat inine mg/dL 0.5 1.2 1.16 FINAL Abdulkadir Jain [place] [address] [id number] 0 Phone: () - 10/24 CMP GFR estim ate ml/min /1.73m ^2 62.1 GFR is calculate d using the CKD-EPI equation. FINAL Abdulkadir [place] [address] [id number] 0 Phone: () - 10/24 CMP Gluco se mg/dL 73.0 126.0 110 FINAL [facility] Jaime [place] [address] [id number] 0 Phone: () - 10/24 CMP Potas sium mmol/L 3.5 5.1 3.8 FINAL [facility] Jaime [place] [address] [id number] 0 Phone: () - 10/24 CMP Sodiu m mmol/L 136.0 145.0 145 FINAL Abdulkadir Jaime Campbell a [facility] [place], [address] [place] [id number] 0 Phone: () - 10/24 CMP Bilir ubin, total mg/dL 0.3 1.2 0.5 FINAL Abdulkadir Jaime Campbell a [facility] - [place], [address] [place] [id number] 0 Phone: () - 10/24 CMP Total prote in g/dL 5.7 8.2 6.4 FINAL Abdulkadir Jaime Campbell a [facility] - [place], [address] [place] [id number] 0 Phone: () - 11/03 [facility] other lab See flow specialist d 01/18 CBC w/ auto diff WBC K/uL 3.0 8.9 5.0 FINAL Abdulkadir Jaime Campbell a [facility] - [place], [address] [facility] [address] [facility] [place] [id number] 0 Phone: () - 01/18 CBC w/ auto diff HGB g/dL 12.5 16.6 11.3 Low FINAL Abdulkadir Jaime Campbell a [facility] - [place], [address] [place] [address] [facility] [address] [facility] [place] [id number] 0 Phone: () - 01/18 CBC w/ auto diff PLT K/uL 113.0 364.0 177 FINAL Abdulkadir Jaime Rajanot a [facility] [place], [address] [facility] [place] [id number] 0 Phone: () - 01/18 CBC w/ auto diff Cayetano # (ANC) K/uL 1.6 6.6 2.8 FINAL Abdulkadir Jaime Rajanot a [facility] - [place], [address] [facility] [place] [id number] 0 Phone: () - 01/18 CBC w/ auto diff Cayetano % % 43.0 74.0 55.5 FINAL Abdulkadir Jaime Rajanot a [facility] - [place], [address] [place] [id number] 0 Phone: () - 01/18 CBC w/ auto diff IG % % 0.0 0.5 0.2 FINAL Abdulkadir Campbell a [facility] - [place], [address] [place] [id number] 0 Phone: () - 01/18 CBC w/ auto diff IG # K/uL 0.0 0.03 0.01 FINAL Abdulkadir Rajanot a [facility] - [place], [address] [place] [id number] 0 Phone: () - 01/18 CBC w/ auto diff LY % % 14.0 41.0 31.7 FINAL Abdulkadir Rajanot a [facility] - [place], [address] [place] [id number] 0 Phone: () - 01/18 CBC w/ auto diff MO % % 6.0 15.0 10.6 FINAL Abdulkadir Campbell a [facility] - [place], [address] [place] [id number] 0 Phone: () - 01/18 CBC w/ auto diff EO % % 0.0 7.0 1.6 FINAL Abdulkadir Campbell a [facility] - [place], [address] [place] [id number] 0 Phone: () - 01/18 CBC w/ auto diff BA % % 0.0 2.0 0.4 FINAL Abdulkadir Campbell a [facility] - [place], [address] [place] [id number] 0 Phone: () - 01/18 CBC w/ auto diff LY # K/uL 0.4 3.6 1.6 FINAL Abdulkadir Campbell a [facility] - [place], [address] [place] [id number] 0 Phone: () - 01/18 CBC w/ auto diff MO # K/uL 0.2 1.3 0.5 FINAL Abdulkadir Jaime Rajanot a [facility] - [place], [address] [place] [id number] 0 Phone: () - 01/18 CBC w/ auto diff EO # K/uL 0.0 0.6 0.1 FINAL Abdulkadir Jaime Rajanot a [facility] - [place], [address] [place] [id number] 0 Phone: () - 01/18 CBC w/ auto diff BA # K/uL 0.0 0.2 0.0 FINAL Abdulkadir Jaime Rajanot a [facility] - [place], [address] [place] [id number] 0 Phone: () - 01/18 CBC w/ auto diff NRBC % #/100W BC 0.0 0.2 0.0 FINAL Abdulkadir Jaime Rajanot a [facility] - [place], [address] [place] [id number] 0 Phone: () - 01/18 CBC w/ auto diff RBC M/uL 4.2 5.6 3.56 Low FINAL Abdulkadir Jaime Rajanot a [facility] - [place], [address] [place] [id number] 0 Phone: () - 01/18 CBC w/ auto diff HCT % 39.0 49.0 33.2 Low FINAL Abdulkadir Jaime Rajanot a [facility] - [place], [address] [place] [id number] 0 Phone: () - 01/18 CBC w/ auto diff MCV fL 80.0 104.0 93.3 FINAL Abdulkadir Jaime Rajanot a [facility] - [place], [address] [place] [id number] 0 Phone: () - 01/18 CBC w/ auto diff MCH pg 26.0 35.0 31.7 FINAL Abdulkadir Jaime Rajanot a [facility] - [place], [address] [place] [id number] 0 Phone: () - 01/18 CBC w/ auto diff MCHC g/dL 30.0 35.0 34.0 FINAL Abdulkadir weinberg [facility] - [place], [address] [facility] [address] [place] [id number] 0 Phone: () - 01/18 CBC w/ auto diff MPV fL 9.5 13.4 11.2 FINAL Abdulkadirshell weinberg [facility] - [place], [address] [facility] [address] [facility] [place] [id number] 0 Phone: () - 01/18 CBC w/ auto diff RDW % 11.3 15.6 13.50 FINAL Abdulkadirshell weinberg [facility] - [place], [address] [facility] [address] [facility] [place] [id number] 0 Phone: () - 01/18 CMP Album in g/dL 3.2 5.2 4.0 FINAL Abdulkadir [facility]ime [facility], [address] [facility] [address] [place] [address] [id number] 0 Phone: () - 01/18 CMP Alkal ine phosp hatas e U/L 46.0 116.0 77 FINAL [facility] Ja[facility], [address] [facility] [address] [place] [address] [id number] 0 Phone: () - 01/18 CMP ALT/S GPT U/L 7.0 40.0 14 FINAL [facility] [place] [address] [address] [facility] [address] [place] [address] [id number] 0 Phone: () - 01/18 CMP AST/S GOT U/L 13.0 40.0 29 FINAL [facility] Jaime [facility], [address] [facility] [address] [place] [address] [id number] 0 Phone: () - 01/18 CMP BUN mg/dL 9.0 23.0 23 FINAL Abdulkadir Jaime [facility], [address] [facility] [address] [place] [address] [id number] 0 Phone: () - 01/18 CMP Calci um mg/dL 8.7 10.4 9.7 FINAL [place] [address] [address] [facility] [address] [id number] 0 Phone: () - 01/18 CMP Chlor narinder mmol/L 96.0 114.0 110 FINAL [facility], [address] [facility] 100 [facility] [id number] 0 Phone: () - 01/18 CMP CO2 [...] of the 96 hour stability window. FINAL [place] [address] [id number] 0 Phone: () - 01/18 CMP Creat inine mg/dL 0.5 1.2 1.28 High FINAL [place] [address] [id number] 0 Phone: () - 01/18 CMP GFR estim ate ml/min /1.73m ^2 55.1 Low GFR is calculate d using the CKD-EPI equation. FINAL [place] [address] [id number] 0 Phone: () - 01/18 CMP Gluco se mg/dL 73.0 126.0 101 FINAL [facility] [address] [facility] [address] [id number] 0 Phone: () - 01/18 CMP Potas sium mmol/L 3.5 5.1 4.1 [facility] [address] [facility] [address] [id number] 0 Phone: () - 01/18 CMP Sodiu m mmol/L 136.0 145.0 144 FINAL [facility] [place], [address] [facility] [address] [id number] 0 Phone: () - 01/18 CMP Bilir ubin, total mg/dL 0.3 1.2 0.2 Low FINAL [facility] Jaime [place] [address] [address] [facility] [address] [id number] 0 Phone: () - 01/18 CMP Total prote in g/dL 5.7 8.2 6.2 FINAL [facility] Jaime [place] [address] [id number] 0 Phone: () - 01/18 PSA diagn ostic panel PSA ng/ml 0.0 4.0 PSA less than 0.05; Repeate d Test performed at [facility] on a Sun[employer] Immunoass ay Analyzer that uses an immunoenz ymometric sandwich assay for analysis. Patient testing should not be performed using multiple methodunruly plaza due to analytica l variation seen between test methodunruly plaza. FINAL [facility] [place] [address] [id number] 0 Phone: () - 05/04 CMP Album in g/dL 3.2 5.2 4.1 FINAL [facility] Jaime [place] [address] [id number] 0 Phone: () - 05/04 CMP Alkal ine phosp hatas e U/L 46.0 116.0 111 FINAL [place] [address] [id number] 0 Phone: () - 05/04 CMP ALT/S GPT U/L 7.0 40.0 19 FINAL [place] [address] [address] [facility] [address] [id number] 0 Phone: () - 05/04 CMP AST/S GOT U/L 13.0 40.0 34 FINAL [place] [address] [address] [facility] [address] [id number] 0 Phone: () - 05/04 CMP BUN mg/dL 9.0 23.0 19.0 FINAL [facility] Sandoval [facility], [address] [facility] [address] [facility] [id number] 0 Phone: () - 05/04 CMP Calci um mg/dL 8.7 10.4 9.8 FINAL [facility], [address] [facility] [id number] 0 Phone: () - 05/04 CMP Chlor narinder mmol/L 96.0 114.0 107 FINAL [facility], [address] [facility] [address] [facility] [id number] 0 Phone: () - 05/04 CMP CO2 [...] of the 96 hour stability window. FINAL [facility], [address] [facility] 100 [facility] [id number] 0 Phone: () - 05/04 CMP Creat inine mg/dL 0.5 1.2 1.06 FINAL [facility] [address] [facility] [address] [place] [address] [id number] 0 Phone: () - 05/04 CMP GFR estim ate ml/min /1.73m ^2 69.0 GFR is calculate d using the CKD-EPI equation. FINAL [facility], [address] [facility] [address] [facility] [id number] 0 Phone: () - 05/04 CMP Gluco se mg/dL 73.0 126.0 73 FINAL [facility], [address] [facility] [id number] 0 Phone: () - 05/04 CMP Potas sium mmol/L 3.5 5.1 4.2 FINAL [facility], [address] [facility] [address] [facility] [id number] 0 Phone: () - 05/04 CMP Sodiu m mmol/L 136.0 145.0 144 FINAL Abdulkadir weinberg [facility], [address] [facility] [address] [facility] [id number] 0 Phone: () - 05/04 CMP Bilir ubin, total mg/dL 0.3 1.2 0.3 FINAL Abdulkadir Jaime weinberg [facility], [address] [facility] [address] [facility] [id number] 0 Phone: () - 05/04 CMP Total prote in g/dL 5.7 8.2 6.5 FINAL Abdulkadirshell weinberg [facility] [address] [facility] [address] [facility] [id number] 0 Phone: () - 05/04 PSA diagn ostic panel PSA ng/ml 0.0 4.0 PSA less than 0.05 Test performed at [facility] on a Sun[employer] Immunoass ay Analyzer that uses an immunoenz ymometric sandwich assay for analysis. Patient testing should not be performed using multiple methodolo mela due to analytica l variation seen between test methodunruly plaza. FINAL Abdulkadirshell weinberg [facility], [address] [facility] [address] [facility] [id number] 0 Phone: () - 05/04 CBC w/ auto diff WBC K/uL 3.0 8.9 4.3 FINAL Abdulkadir Jaime [facility]inberg [facility], [address] [facility] [address] [facility] [id number] 0 Phone: () - 05/04 CBC w/ auto diff HGB g/dL 12.5 16.6 11.5 Low FINAL [facility] Jaime weinberg [facility] - [place] , [facility] [address] [place] [facility] [address] [facility] [place] [id number] 0 Phone: () - 05/04 CBC w/ auto diff PLT K/uL 113.0 364.0 222 FINAL [facility] Jaime [facility] - [place] , [address] [place] [address] [facility] [address] [place] [id number] 0 Phone: () - 05/04 CBC w/ auto diff Cayetano # (ANC) K/uL 1.6 6.6 2.0 FINAL Abdulkadirshell Rajanot a [facility] - [place], [address] [place] [id number] 0 Phone: () - 05/04 CBC w/ auto diff Cayetano % % 43.0 74.0 46.4 FINAL Abdulkadirshell Rajanot a [facility] - [place], [address] [place] [id number] 0 Phone: () - 05/04 CBC w/ auto diff IG % % 0.0 0.5 0.0 FINAL Abdulkadirshell Rajanot a [facility] - [place], [address] [place] [id number] 0 Phone: () - 05/04 CBC w/ auto diff IG # K/uL 0.0 0.03 0.00 FINAL Abdulkadirshell Rajanot a [facility] - [place], [address] [place] [id number] 0 Phone: () - 05/04 CBC w/ auto diff LY % % 14.0 41.0 38.0 FINAL Abdulkadirshell Rajanot a [facility] - [place], [address] [place] [id number] 0 Phone: () - 05/04 CBC w/ auto diff MO % % 6.0 15.0 10.0 FINAL Abdulkadirshell Rajanot a [facility] - [place], [address] [place] [id number] 0 Phone: () - 05/04 CBC w/ auto diff EO % % 0.0 7.0 4.9 FINAL Abdulkadirshell Rajanot a [facility] - [place], [address] [place] [id number] 0 Phone: () - 05/04 CBC w/ auto diff BA % % 0.0 2.0 0.7 FINAL Abdulkadir Sandoval [place] [facility] [place], [address] [place] [id number] 0 Phone: () - 05/04 CBC w/ auto diff LY # K/uL 0.4 3.6 1.6 FINAL Abdulkadir Jaime Rajanot a [facility] - [place], [address] [place] [id number] 0 Phone: () - 05/04 CBC w/ auto diff MO # K/uL 0.2 1.3 0.4 FINAL Abdulkadir Jaime Rajanot a [facility] - [place], [address] [place] [id number] 0 Phone: () - 05/04 CBC w/ auto diff EO # K/uL 0.0 0.6 0.2 FINAL Abdulkadir Jaime Rajanot a [facility] - [place], [address] [place] [id number] 0 Phone: () - 05/04 CBC w/ auto diff BA # K/uL 0.0 0.2 0.0 FINAL Abdulkadir Jaime Rajanot a [facility] - [place], [address] [place] [id number] 0 Phone: () - 05/04 CBC w/ auto diff NRBC % #/100W BC 0.0 0.2 0.0 FINAL Abdulkadir Jaime Rajanot a [facility] - [place], [address] [place] [id number] 0 Phone: () - 05/04 CBC w/ auto diff RBC M/uL 4.2 5.6 3.89 Low FINAL Abdulkadir Jaime Rajanot a [facility] - [place], [address] [place] [id number] 0 Phone: () - 05/04 CBC w/ auto diff HCT % 39.0 49.0 34.7 Low FINAL Abdulkadir Jaime Rajanot a [facility] - [place], [address] [place] [id number] 0 Phone: () - 05/04 CBC w/ auto diff MCV fL 80.0 104.0 89.2 FINAL Abdulkadir Jaime weinberg [facility] - [place], [address] [place] [facility] [facility] [address] [place] [id number] 0 Phone: () - 05/04 CBC w/ auto diff MCH pg 26.0 35.0 29.6 FINAL Abdulkadir Jaime weinberg [facility] - [place], [address] [facility] [address] [place] [id number] 0 Phone: () - 05/04 CBC w/ auto diff MCHC g/dL 30.0 35.0 33.1 FINAL Abdulkadir Jaime weinberg [facility] - [place], [address] [facility] [address] [place] [id number] 0 Phone: () - 05/04 CBC w/ auto diff MPV fL 9.5 13.4 11.0 FINAL Abdulkadir Jaime weinberg [facility] - [place], [address] [facility] [address] [place] [id number] 0 Phone: () - 05/04 CBC w/ auto diff RDW % 11.3 15.6 14.10 FINAL Abdulkadirshell weinberg [facility] - [place], [address] [place] [address] [address] [place] [id number] 0 Phone: () - 08/03 CMP Album in g/dL 3.2 5.2 3.9 FINAL Abdulkadirshell weinberg [place] [address] [address] [facility] [address] [place] [address] [id number] 0 Phone: () - 08/03 CMP Alkal ine phosp hatas e U/L 46.0 116.0 117 High FINAL Abdulkadir Jaime weinberg Oncology [place] [address] [address] [facility] [address] [place] [address] [id number] 0 Phone: () - 08/03 CMP ALT/S GPT U/L 7.0 40.0 14 FINAL Abdulkadir Jaime Campbell a [place] [address] [address] [facility] [address] [place] [address] [id number] 0 Phone: () - 08/03 CMP AST/S GOT U/L 13.0 40.0 28 FINAL [facility] [address] [id number] 0 Phone: () - 08/03 CMP BUN mg/dL 9.0 23.0 16.0 FINAL [place] [address] [address] [facility] 100 [facility] [id number] 0 Phone: () - 08/03 CMP Calci um mg/dL 8.7 10.4 9.5 FINAL [place] [address] [address] [facility] [address] [id number] 0 Phone: () - 08/03 CMP Chlor narinder mmol/L 96.0 114.0 109 FINAL [place] [address] [id number] 0 Phone: () - 08/03 CMP CO2 [...] of the 96 hour stability window. FINAL [place] [address] [id number] 0 Phone: () - 08/03 CMP Creat inine mg/dL 0.5 1.2 1.13 FINAL [place] [address] [address] [facility] [address] [id number] 0 Phone: () - 08/03 CMP GFR estim ate ml/min /1.73m ^2 63.8 GFR is calculate d using the CKD-EPI equation. FINAL [facility] [address] [facility] [address] [id number] 0 Phone: () - 08/03 CMP Gluco se mg/dL 73.0 126.0 100 FINAL [facility], [address] [place] [address] [id number] 0 Phone: () - 08/03 CMP Potas sium mmol/L 3.5 5.1 4.5 FINAL [facility], [address] [facility] [id number] 0 Phone: () - 08/03 CMP Sodiu m mmol/L 136.0 145.0 144 [facility]AL [facility] [address] [facility] [address] [place] [address] [id number] 0 Phone: () - 08/03 CMP Bilir ubin, total mg/dL 0.3 1.2 0.3 FINAL [facility] [address] [facility] [address] [place] [address] [id number] 0 Phone: () - 08/03 CMP Total prote in g/dL 5.7 8.2 6.2 FINAL [facility] Ja[facility], [address] [id number] 0 Phone: () - 08/03 PSA diagn ostic panel PSA ng/ml 0.0 4.0 PSA less than 0.05 Test performed at [facility] on a SunFunder Immunoass ay Analyzer that uses an immunoenz ymometric sandwich assay for analysis. Patient testing should not be performed using multiple methodunruly plaza due to analytica l variation seen between test methodunruly plaza. FINAL [facility] Ja[facility], [address] [facility] [address] [place] [address] [id number] 0 Phone: () - 08/03 CBC w/ auto diff WBC K/uL 3.[address] [facility], [address] [facility] [address] [facility] [id number] 0 Phone: () - 08/03 CBC w/ auto diff HGB g/dL 12.5 16.6 10.9 Low FINAL [facility] [place], [address] [place] [id number] 0 Phone: () - 08/03 CBC w/ auto diff PLT K/uL 113.0 364.0 201 FINAL Abdulkadirshell Campbell a [facility] - [place], [address] [place] [id number] 0 Phone: () - 08/03 CBC w/ auto diff Cayetano # (ANC) K/uL 1.6 6.6 2.4 FINAL Abdulkadirshell Rajanot a [facility] - [place], [address] [place] [id number] 0 Phone: () - 08/03 CBC w/ auto diff Cayetano % % 43.0 74.0 55.3 FINAL Abdulkadirshell Rajanot a [facility] - [place], [address] [place] [id number] 0 Phone: () - 08/03 CBC w/ auto diff IG % % 0.0 0.5 0.2 FINAL Abdulkadirshell Campbell a [facility] - [place], [address] [place] [id number] 0 Phone: () - 08/03 CBC w/ auto diff IG # K/uL 0.0 0.03 0.01 FINAL Abdulkadirshell Campbell a [facility] - [place], [address] [place] [id number] 0 Phone: () - 08/03 CBC w/ auto diff LY % % 14.0 41.0 31.9 FINAL Abdulkadirshell Rajanot a On[facility] - [place], [address] [place] [id number] 0 Phone: () - 08/03 CBC w/ auto diff MO % % 6.0 15.0 10.2 FINAL Abdulkadirshell Rajanot a [facility] - [place], [address] [place] [id number] 0 Phone: () - 08/03 CBC w/ auto diff EO % % 0.0 7.0 1.9 FINAL Abdulkadir Jaime Rajanot a On[facility] - [place], [address] [place] [id number] 0 Phone: () - 08/03 CBC w/ auto diff BA % % 0.0 2.0 0.5 FINAL Abdulkadir Jaime Rajanot a On[facility] - [place], [address] [place] [id number] 0 Phone: () - 08/03 CBC w/ auto diff LY # K/uL 0.4 3.6 1.4 FINAL Abdulkadir Jaime Rajanot a On[facility] - [place], [address] [place] [id number] 0 Phone: () - 08/03 CBC w/ auto diff MO # K/uL 0.2 1.3 0.4 FINAL Abdulkadir Jaime Rajanot a [facility] - [place], [address] [place] [id number] 0 Phone: () - 08/03 CBC w/ auto diff EO # K/uL 0.0 0.6 0.1 FINAL Abdulkadir Jaime Rajanot a On[facility] - [place], [address] [place] [id number] 0 Phone: () - 08/03 CBC w/ auto diff BA # K/uL 0.0 0.2 0.0 FINAL Abdulkadir Jaime Rajanot a [facility] - [place], [address] [place] [id number] 0 Phone: () - 08/03 CBC w/ auto diff NRBC % #/100W BC 0.0 0.2 0.0 FINAL Abdulkadir Jaime Rajanot a [facility] - [place], [address] [place] [id number] 0 Phone: () - 08/03 CBC w/ auto diff RBC M/uL 4.2 5.6 3.69 Low FINAL Abdulkadir Jaime Rajanot a [facility] - [place], [address] [place] [id number] 0 Phone: () - 08/03 CBC w/ auto diff HCT % 39.0 49.0 34.2 Low FINAL Abdulkadir weinberg Oncology - [place], [address] [place] [id number] 0 Phone: () - 08/03 CBC w/ auto diff MCV fL 80.0 104.0 92.7 FINAL Abdulkadir weinberg Oncology - [place], [address] [place] [id number] 0 Phone: () - 08/03 CBC w/ auto diff MCH pg 26.0 35.0 29.5 FINAL Abdulkadir weinberg Oncology - [place], [address] [place] [id number] 0 Phone: () - 08/03 CBC w/ auto diff MCHC g/dL 30.0 35.0 31.9 FINAL Abdulkadir weinberg Oncology - [place], [address] [place] [id number] 0 Phone: () - 08/03 CBC w/ auto diff MPV fL 9.5 13.4 10.4 FINAL Abdulkadir weinberg Oncology - [place], [address] [facility] [address] [place] [id number] 0 Phone: () - 08/03 CBC w/ auto diff RDW % 11.3 15.6 15.30 FINAL Abdulkadir weinberg Oncology - [place], [address] [facility] [address] [place] [id number] 0 Phone: () - 11/02 PSA diagn ostic panel PSA ng/ml 0.0 4.0 PSA less than 0.05 Test performed at [facility] on a Autowattsass ay Analyzer that uses an immunoenz ymometric sandwich assay for analysis. Patient testing should not be performed using multiple methodunruly plaza due to analytica l variation seen between test methodunruly plaza. FINAL Abdulkadir Jaime Rajaneddie weinberg Oncology - [place], [address] [place] [id number] 0 Phone: () - 11/02 CBC w/ auto diff WBC K/uL 3.0 8.9 4.8 FINAL Abdulkadir Jaime Rajanot a Oncology - [place], [address] [place] [id number] 0 Phone: () - 11/02 CBC w/ auto diff HGB g/dL 12.5 16.6 9.7 Low FINAL Abdulkadir Jaime Rajanot a On[facility] - [place], [address] [place] [id number] 0 Phone: () - 11/02 CBC w/ auto diff PLT K/uL 113.0 364.0 244 FINAL Abdulkadir Jaime Rajanot a On[facility] - [place], [address] [place] [id number] 0 Phone: () - 11/02 CBC w/ auto diff Cayet[place] # (ANC) K/uL 1.6 6.6 2.1 FINAL Abdulkadir Jaime Rajanot a On[facility] - [place], [address] [place] [id number] 0 Phone: () - 11/02 CBC w/ auto diff Cayetano % % 43.0 74.0 44.9 FINAL Abdulkadirshell Campbell a On[facility] - [place], [address] [place] [id number] 0 Phone: () - 11/02 CBC w/ auto diff IG % % 0.0 0.5 0.2 FINAL Abdulkadir Jaime Rajanot a On[facility] - [place], [address] [place] [id number] 0 Phone: () - 11/02 CBC w/ auto diff IG # K/uL 0.0 0.03 0.01 FINAL Abdulkadir Jaime Rajanot a On[facility] - [place], [address] [place] [id number] 0 Phone: () - 11/02 CBC w/ auto diff LY % % 14.0 41.0 37.5 FINAL Abdulkadir Jaime Rajanot a On[facility] - [place], [address] [place] [id number] 0 Phone: () - 11/02 CBC w/ auto diff MO % % 6.0 15.0 12.8 FINAL Abdulkadir Jaime Rajanot a On[facility] - [place], [address] [place] [id number] 0 Phone: () - 11/02 CBC w/ auto diff EO % % 0.0 7.0 4.0 FINAL Abdulkadir Jaime Rajanot a [facility] - [place], [address] [place] [id number] 0 Phone: () - 11/02 CBC w/ auto diff BA % % 0.0 2.0 0.6 FINAL Abdulkadir Jaime Rajanot a [facility] - [place], [address] [place] [id number] 0 Phone: () - 11/02 CBC w/ auto diff LY # K/uL 0.4 3.6 1.8 FINAL Abdulkadir Jaime Rajanot a On[facility] - [place], [address] [place] [id number] 0 Phone: () - 11/02 CBC w/ auto diff MO # K/uL 0.2 1.3 0.6 FINAL Abdulkadir Jaime Rajanot a [facility] - [place], [address] [place] [id number] 0 Phone: () - 11/02 CBC w/ auto diff EO # K/uL 0.0 0.6 0.2 FINAL Abdulkadir Jaime Rajanot a [facility] - [place], [address] [place] [id number] 0 Phone: () - 11/02 CBC w/ auto diff BA # K/uL 0.0 0.2 0.0 FINAL Abdulkadir Jaime Rajanot a On[facility] - [place], [address] [place] [id number] 0 Phone: () - 11/02 CBC w/ auto diff NRBC % #/100W BC 0.0 0.2 0.0 FINAL Abdulkadir Jaime Rajanot a [facility] - [place], [address] [place] [id number] 0 Phone: () - 11/02 CBC w/ auto diff RBC M/uL 4.2 5.6 3.50 Low FINAL Abdulkadir Jaime Rajanot a [facility] - [place], [address] [place] [id number] 0 Phone: () - 11/02 CBC w/ auto diff HCT % 39.0 49.0 30.8 Low FINAL Abudlkadir Jaime Rajanot a Oncology - [place], [address] [place] [id number] 0 Phone: () - 11/02 CBC w/ auto diff MCV fL 80.0 104.0 88.0 FINAL Abdulkadir Sandovalbrody Rajanot a Oncology - [place], [address] [place] [id number] 0 Phone: () - 11/02 CBC w/ auto diff MCH pg 26.0 35.0 27.7 FINAL Abdulkadir Sandovalbrody Rajanot a Oncology - [place], [address] [place] [id number] 0 Phone: () - 11/02 CBC w/ auto diff MCHC g/dL 30.0 35.0 31.5 FINAL Abdulkadir Jaime Rajanot a On[facility] - [place], [address] [place] [id number] 0 Phone: () - 11/02 CBC w/ auto diff MPV fL 9.5 13.4 10.3 FINAL Abdulkadir Jaime Rajanot a On[facility] - [place], [address] [place] [id number] 0 Phone: () - 11/02 CBC w/ auto diff RDW % 11.3 15.6 14.50 FINAL [facility], [address] [facility] [id number] 0 Phone: () - 11/02 CMP Album in g/dL 3.2 5.2 4.0 FINAL [place] [address] [place] [address] [id number] 0 Phone: () - 11/02 CMP Alkal ine phosp hatas e U/L 46.0 116.0 106 FINAL [place] [address] [place] [address] [id number] 0 Phone: () - 11/02 CMP ALT/S GPT U/L 7.0 40.0 14 FINAL [place] [address] [address] [facility] [address] [place] [address] [id number] 0 Phone: () - 11/02 CMP AST/S GOT U/L 13.0 40.0 25 FINAL [place] [address] [address] [facility] [address] [place] [address] [id number] 0 Phone: () - 11/02 CMP BUN mg/dL 9.0 23.0 20.0 FINAL [place] [address] [address] [facility] [address] [place] [address] [id number] 0 Phone: () - 11/02 CMP Calci um mg/dL 8.7 10.4 9.5 FINAL [place] [address] [address] [facility] [address] [place] [address] [id number] 0 Phone: () - 11/02 CMP Chlor narinder mmol/L 96.0 114.0 109 FINAL [place] [address] [address] [facility] [address] [id number] 0 Phone: () - 11/02 CMP CO2 [...] of the 96 hour stability window. FINAL [place] [address] [id number] 0 Phone: () - 11/02 CMP Creat inine mg/dL 0.5 1.2 1.07 FINAL [place] [address] [id number] 0 Phone: () - 11/02 CMP GFR estim ate ml/min /1.73m ^2 68.0 GFR is calculate d using the CKD-EPI equation. FINAL [address] [id number] 0 Phone: () - 11/02 CMP Gluco se mg/dL 73.0 126.0 84 FINAL [place] [address] [id number] 0 Phone: () - 11/02 CMP Potas sium mmol/L 3.5 5.1 4.0 FINAL [place] [address] [id number] 0 Phone: () - 11/02 CMP Sodiu m mmol/L 136.0 145.0 145 FINAL [place] [address] [id number] 0 Phone: () - 11/02 CMP Bilir ubin, total mg/dL 0.3 1.2 0.4 FINAL [place] [address] [id number] 0 Phone: () - 11/02 CMP Total prote in g/dL 5.7 8.2 6.3 FINAL [place] [address] [id number] 0 Phone: () - 11/08 Di tin panel Di tin NG/ML 27.0 300.0 7.90 Low FINAL [facility], [address] [facility] [address] [facility] [id number] 0 Phone: () - 11/08 Iron profi le TIBC ug/dL 250.0 425.0 385 FINAL [facility] [address] [facility] [address] [facility] [id number] 0 Phone: () - 11/08 Iron profi le Iron ug/dL 50.0 175.0 42 Low FINAL [facility], [address] [facility] [address] [facility] [id number] 0 Phone: () - 11/08 Iron profi le Unbou nd iron capac ity ug/dL 75.0 410.0 343 FINAL [facility], [address] [facility] [address] [place] [address] [id number] 0 Phone: () - 11/08 Iron profi le Iron, % satur ation % 20.0 55.0 11 Low FINAL [facility], [address] [facility] [address] [place] [address] [id number] 0 Phone: () - 11/08 Vitam in B12 panel Vitam in B12 pg/mL 230.0 1050.0 879 Test performed at [facility]. [address] [facility] [place] [address] FINAL [facility], [address] [facility] [address] [place] [address] [id number] 0 Phone: () - 11/08 Folat e panel Folat e, serum ng/mL 3.0 16.0 Folate greater than 20 FINAL [facility], [address] [facility] [address] [place] [address] [id number] 0 Phone: () - 11/08 Immun oglob ulin measu remen t IgG, quant mg/dL 610.0 1616.0 649.53 Test performed at [facility] on a Binding Site Optilite Analyzer that uses a turbidime tric method for analysis. Patient testing should not be performed using multiple methodolo girandee due to analytica l variation seen between test methodolo gies. FINAL Abdulkadirshell weinberg On[facility], [address] [facility] [id number] 0 Phone: () - 11/08 Immun oglob ulin measu remen t IgA, quant mg/dL 61.0 348.0 214.98 Test performed at [facility] on a Binding Site Optilite Analyzer that uses a turbidime tric method for analysis. Patient testing should not be performed using multiple methodolo gies due to analytica l variation seen between test methodolo gies. FINAL Abdulkadir Jaime weinberg Oncology [facility], [address] [facility] [address] [facility] [id number] 0 Phone: () - 11/08 Immun oglob ulin measu remen t IgM, quant mg/dL 35.0 242.0 43.44 Test performed at [facility] on a Binding Site Optilite Analyzer that uses a turbidime tric method for analysis. Patient testing should not be performed using multiple methodolo gies due to analytica l variation seen between test methodolo gies. FINAL Abdulkadirshell weinberg Oncology [facility], [address] [facility] [address] [facility] [id number] 0 Phone: () - 11/08 WBC K/uL 3.0 8.9 4.5 FINAL Abdulkadirshell Campbell a [facility] - [place], [address] [place] [address] d [address] [facility] [id number] 0 Phone: () - 11/08 HGB g/dL 12.5 16.6 9.7 Low FINAL Abdulkadirshell Campbell a [facility] - [place], [address] [place] [address] d [address] [place] [id number] 0 Phone: () - 11/08 PLT K/uL 113.0 364.0 225 FINAL Abdulkadirshell Rajanot a Oncology - [place], [address] [place] [address] [facility] [address] [place] [facility] [id number] 0 Phone: () - 11/08 Cayetano % % 43.0 74.0 44.8 FINAL Abdulkadirshell Campbell a [facility] - [place], [address] [place] [id number] 0 Phone: () - 11/08 Cayetano # (ANC) K/uL 1.6 6.6 2.0 FINAL Abdulkadir Jaime Rajanot a On[facility] - [place], [address] [place] [id number] 0 Phone: () - 11/08 IG % % 0.0 0.5 0.2 FINAL Abdulkadir Jaime Rajanot a [facility] - [place], [address] [place] [id number] 0 Phone: () - 11/08 IG # K/uL 0.0 0.03 0.01 FINAL Abdulkadir Jaime Rajanot a [facility] - [place], [address] [place] [id number] 0 Phone: () - 11/08 LY % % 14.0 41.0 37.8 FINAL Abdulkadir Sandovalbrody Rajanot a On[facility] - [place], [address] [place] [id number] 0 Phone: () - 11/08 MO % % 6.0 15.0 13.0 FINAL Abdulkadirshell Rajanot a On[facility] - [place], [address] [place] [id number] 0 Phone: () - 11/08 EO % % 0.0 7.0 3.8 FINAL Abdulkadir Jaime Rajanot a [facility] - [place], [address] [place] [id number] 0 Phone: () - 11/08 BA % % 0.0 2.0 0.4 FINAL Abdulkadir Jaime Rajanot a [facility] - [place], [address] [place] [id number] 0 Phone: () - 11/08 LY # K/uL 0.4 3.6 1.7 FINAL Abdulkadir Sandovalbrody Rajanot a On[facility] - [place], [address] [place] [id number] 0 Phone: () - 11/08 MO # K/uL 0.2 1.3 0.6 FINAL Abdulkadir Jaime Rajanot a [facility] - [place], [address] [place] [id number] 0 Phone: () - 11/08 EO # K/uL 0.0 0.6 0.2 FINAL Abdulkadir Jaime Rajanot a [facility] - [place], [address] [place] [id number] 0 Phone: () - 11/08 BA # K/uL 0.0 0.2 0.0 FINAL Abdulkadir Jaime Rajanot a [facility] - [place], [address] [place] [id number] 0 Phone: () - 11/08 NRBC % #/100W BC 0.0 0.2 0.0 FINAL Abdulkadir Jaime Rajanot a [facility] - [place], [address] [place] [id number] 0 Phone: () - 11/08 RBC M/uL 4.2 5.6 3.57 Low FINAL Abdulkadir Jaime Rajanot a [facility] - [place], [address] [place] [id number] 0 Phone: () - 11/08 HCT % 39.0 49.0 31.0 Low FINAL Abdulkadir Jaime Rajanot a [facility] - [place], [address] [place] [id number] 0 Phone: () - 11/08 MCV fL 80.0 104.0 86.8 FINAL Abdulkadir Jaime Rajanot a [facility] - [place], [address] [place] [id number] 0 Phone: () - 11/08 MCH pg 26.0 35.0 27.2 FINAL Abdulkadir Sandoval [place] [facility] - [place], [address] [place] [id number] 0 Phone: () - 11/08 MCHC g/dL 30.0 35.0 31.3 FINAL Abdulkadir Jaime Campbell a On[facility] - [place], [address] [facility] [address] [place] [id number] 0 Phone: () - 11/08 MPV fL 9.5 13.4 10.6 FINAL Abdulkadir Jaime weinberg Oncology - [place], [address] [facility] [address] [place] [id number] 0 Phone: () - 11/08 RDW % 11.3 15.6 14.60 FINAL Abdulkadir Jaime Campbell a [facility] - [place], [address] [facility] [address] [place] [id number] 0 Phone: () - 11/08 Retic ulocy te, absol [place] M/uL 0.01 0.1 0.07 FINAL Abdulkadir Jaime weinberg [facility] - [place], [address] [facility] [address] [place] [id number] 0 Phone: () - 11/08 Retic ulocy te count % 0.2 1.7 2.04 High FINAL Abdulkadir Jaime weinberg [facility] - [place], [address] [facility] [address] [place] [id number] 0 Phone: () - 11/08 Immat ure retic ulocy te fract ion, % % 0.0 18.8 23.00 High FINAL Abdulkadir Jaime weinberg [facility] - [place], [address] [facility] [address] [place] [id number] 0 Phone: () - 11/08 Retic ulocy te cellu lar hemog lobin pg 28.0 37.0 29.0 FINAL Abdulkadir Jaime Campbell a [facility] - [place], [address] [facility] [address] [place] [id number] 0 Phone: () - 11/08 Immun ofixa tion, serum w/ quant IgG/A /M panel Immun ofixa tion, serum , inter preta tion No monoclo nal peaks detecte d. Interpr eted and signed by Jimenez underwood MD on 023 FINAL Abdulkadir Rajan a [facility] - [place], [address] [facility] [id number] 0 Phone: () - 11/08 Path perip heral blood slide revie w panel Patho logy/ Cytol ogy Morph ology SEE RESULTS BELOW CASE REPORTSpe cial Hematolog y Report Case: [id number] 5Authoriz ing Provider: Abdulkadir Sandoval MBBS Collected :11/08/20 23 [id number] ing Location: [facility] Received: 3 2151Patho logist: [...] AND DIFFERENT IALHEMATO LOGY PARAMETER STested at: [facility]emat[facility] y [place] eRESULTS EXPECTED VALUESWBC [...] microscop ic examinati on of an appropria [facility] ed blood smear.ADD ITIONAL INFORMATI ONInterpr eted at [facility], [facility] - [address], [place] [address] FINAL Abdulkadir Sandoval 01/28 PSA diagn ostic panel PSA ng/mL 0.0 3.9 <0.06 Test performed at [facility] on a [employer]0 Immunoass ay Analyzer that uses an immunomet yuko immunoass ay technique . Patient testing should not be performed using multiple methodunruly plaza due to analytica l variation seen between test methodunruly plaza. FINAL Abdulkadir Jaime * Adrian a On[facility] - [place], [address] [facility] [place] [id number] 0 01/28 CBC w/ auto diff WBC K/uL 3.0 8.9 4.8 FINAL Abdulkadirshell Rajanot a Oncology - [place], [address] [facility] [place] [id number] 0 Phone: () - 01/28 CBC w/ auto diff HGB g/dL 12.5 16.6 12.6 FINAL Abdulkadirshell [facility] [place], [address] [place] [id number] 0 Phone: () - 01/28 CBC w/ auto diff PLT K/uL 113.0 364.0 155 FINAL Abdulkadirshell [facility] [place], [address] [place] [id number] 0 Phone: () - 01/28 CBC w/ auto diff Cayetano # (ANC) K/uL 1.6 6.6 2.7 FINAL Abd[facility]adirshell [facility] [place], [address] [place] [id number] 0 Phone: () - 01/28 CBC w/ auto diff Cayetano % % 43.0 74.0 54.7 FINAL Abdulkadirshell Campbell [facility] [place], [address] [place] [id number] 0 Phone: () - 01/28 CBC w/ auto diff IG % % 0.0 0.5 0.2 FINAL Abdulkadirshell [facility] [place], [address] [place] [id number] 0 Phone: () - 01/28 CBC w/ auto diff IG # K/uL 0.0 0.03 0.01 FINAL Abd[facility]adirshell [facility] [place], [address] [place] [id number] 0 Phone: () - 01/28 CBC w/ auto diff LY % % 14.0 41.0 33.1 FINAL Abd[facility]adirshell [facility] [place], [address] [place] [id number] 0 Phone: () - 01/28 CBC w/ auto diff MO % % 6.0 15.0 8.5 FINAL Abd[facility]adirshell [facility] [place], [address] [place] [id number] 0 Phone: () - 01/28 CBC w/ auto diff EO % % 0.0 7.0 3.1 FINAL Abdulkadir Jaime [facility] [place], [address] [place] [id number] 0 Phone: () - 01/28 CBC w/ auto diff BA % % 0.0 2.0 0.4 FINAL Abdulkadir Jaime [facility] [place], [address] [place] [id number] 0 Phone: () - 01/28 CBC w/ auto diff LY # K/uL 0.4 3.6 1.6 FINAL Abdulkadir Jaime [facility] [place], [address] [place] [id number] 0 Phone: () - 01/28 CBC w/ auto diff MO # K/uL 0.2 1.3 0.4 FINAL Abdulkadir Jaime [facility] [place], [address] [place] [id number] 0 Phone: () - 01/28 CBC w/ auto diff EO # K/uL 0.0 0.6 0.2 FINAL Abdulkadir Jaime [facility] [place], [address] [place] [id number] 0 Phone: () - 01/28 CBC w/ auto diff BA # K/uL 0.0 0.2 0.0 FINAL Abdulkadir Jaime [facility] [place], [address] [place] [id number] 0 Phone: () - 01/28 CBC w/ auto diff NRBC % #/100W BC 0.0 0.2 0.0 FINAL Abdulkadir Jaime [facility] [place], [address] [place] [id number] 0 Phone: () - 01/28 CBC w/ auto diff RBC M/uL 4.2 5.6 4.25 FINAL Abdulkadir Jaime [facility] [place], [address] [place] [id number] 0 Phone: () - 01/28 CBC w/ auto diff HCT % 39.0 49.0 39.6 FINAL Abdulkadir Jaime [facility] [place], [address] [place] [id number] 0 Phone: () - 01/28 CBC w/ auto diff MCV fL 80.0 104.0 93.2 FINAL Abdulkadir Jaime [facility] [place], [address] [place] [id number] 0 Phone: () - 01/28 CBC w/ auto diff MCH pg 26.0 35.0 29.6 FINAL Abdulkadir Sandovalbrody [facility] [place], [address] [place] [id number] 0 Phone: () - 01/28 CBC w/ auto diff MCHC g/dL 30.0 35.0 31.8 FINAL Abdulkadir Jaime [facility] [place], [address] [place] [id number] 0 Phone: () - 01/28 CBC w/ auto diff MPV fL 9.5 13.4 10.5 FINAL Abdulkadir Sandoval [facility] [place], [address] [place] [id number] 0 Phone: () - 01/28 CBC w/ auto diff RDW % 11.3 15.6 15.90 High FINAL Abdulkadir Sandoval [facility] [place], [address] [place] [id number] 0 Phone: () - 01/28 CMP Album in g/dL 3.5 5.0 3.8 FINAL Abdulkadir Jaime * [facility] [place], [address] [facility] [place] [id number] 0 01/28 CMP Alkal ine phosp hatas e U/L 36.0 125.0 105 FINAL Abdulkadir Sandoval * [facility], [address] [facility] [id number] 0 01/28 CMP ALT/S GPT U/L 0.0 49.0 23 FINAL Abdulkadir Sandoval * [facility], [address] [facility] [id number] 0 01/28 CMP AST/S GOT U/L 17.0 59.0 36 FINAL Abdulkadir Sandoval * [facility], [address] [id number] 0 01/28 CMP BUN mg/dL 9.0 20.0 23.0 High FINAL Abdulkadir Sandoval * [facility], [address] [id number] 0 01/28 CMP Calci um mg/dL 8.4 10.2 9.8 FINAL Abdulkadir Sandoval * [facility], [address] [id number] 0 01/28 CMP Chlor narinder mmol/L 96.0 107.0 110 High FINAL Abdulkadir Sandoval * [facility], [address] [facility] [id number] 0 01/28 CMP CO2 mmol/L 22.0 30.0 [...] of the 96 hour stability window. FINAL Badulkadir Sandoval * [facility], [address] [facility] [address] [id number] 0 01/28 CMP Creat inine mg/dL 0.66 1.25 1.00 FINAL Abdulkadir Sandoval * [facility], [facility] [address] [id number] 0 01/28 CMP GFR estim ate ml/min /1.73m ^2 73.6 GFR is calculate d using the CKD-EPI equation. FINAL Abdulkadir Sandoval * [facility], [facility] [address] [place] [address] [id number] 0 01/28 CMP Gluco se mg/dL 74.0 100.0 104 High FINAL Abdulkadir Sandoval * [facility], [facility] [address] [id number] 0 01/28 CMP Potas sium mmol/L 3.5 5.1 4.1 FINAL Abdulkadir Sandoval * [facility], [facility] [address] [place] [address] [id number] 0 01/28 CMP Sodiu m mmol/L 137.0 145.0 141 FINAL Abdulkadir Sandoval * [facility], [address] [id number] 0 01/28 CMP Bilir ubin, total mg/dL 0.2 1.3 0.7 FINAL Abdulkadir Sandoval * [facility], [facility] [address] [id number] 0 01/28 CMP Total prote in g/dL 6.3 8.2 6.5 FINAL Abdulkadir Sandoval * [facility], [address] [facility] [place] [id number] 0 05/16 Di tin panel Di tin ng/mL 17.9 464.0 21.90 FINAL Abdulkadir Jaime * [facility] [place], [address] [facility] [place] [id number] 0 05/16 CBC w/ auto diff WBC K/uL 3.0 8.9 5.4 FINAL Abdulkadir Jaime [facility] [place], [address] [place] [id number] 0 Phone: () - 05/16 CBC w/ auto diff HGB g/dL 12.5 16.6 12.6 FINAL Abdulkadir Jaime [facility] [place], [address] [place] [id number] 0 Phone: () - 05/16 CBC w/ auto diff PLT K/uL 113.0 364.0 222 FINAL Abdulkadir Jaime [facility] [place], [address] [place] [id number] 0 Phone: () - 05/16 CBC w/ auto diff Cayetano # (ANC) K/uL 1.6 6.6 3.1 FINAL Abdulkadir Jaime [facility] [place], [address] [place] [id number] 0 Phone: () - 05/16 CBC w/ auto diff Cayetano % % 43.0 74.0 56.8 FINAL Abdulkadir Jaime [facility] [place], [address] [place] [id number] 0 Phone: () - 05/16 CBC w/ auto diff IG % % 0.0 0.5 0.2 FINAL Abdulkadir Jaime [facility] [place], [address] [place] [id number] 0 Phone: () - 05/16 CBC w/ auto diff IG # K/uL 0.0 0.03 0.01 FINAL Abdulkadir Jaime [facility] [place], [address] [place] [id number] 0 Phone: () - 05/16 CBC w/ auto diff LY % % 14.0 41.0 32.5 FINAL Abdulkadir Jaime [facility] [place], [address] [place] [id number] 0 Phone: () - 05/16 CBC w/ auto diff MO % % 6.0 15.0 7.5 FINAL Abdulkadir Jaime [facility] [place], [address] [place] [id number] 0 Phone: () - 05/16 CBC w/ auto diff EO % % 0.0 7.0 2.4 FINAL Abdulkadir Jaime [facility] [place], [address] [place] [id number] 0 Phone: () - 05/16 CBC w/ auto diff BA % % 0.0 2.0 0.6 FINAL Abd[facility]irshell [facility] [place], [address] [place] [id number] 0 Phone: () - 05/16 CBC w/ auto diff LY # K/uL 0.4 3.6 1.7 FINAL Abdulkadir Jaime [facility] [place], [address] [place] [id number] 0 Phone: () - 05/16 CBC w/ auto diff MO # K/uL 0.2 1.3 0.4 FINAL Abdulkadir Jaime [facility] [place], [address] [place] [id number] 0 Phone: () - 05/16 CBC w/ auto diff EO # K/uL 0.0 0.6 0.1 FINAL Abdulkadir Jaime [facility] [place], [address] [place] [id number] 0 Phone: () - 05/16 CBC w/ auto diff BA # K/uL 0.0 0.2 0.0 FINAL Abdulkadir Jaime [facility] [place], [address] [place] [id number] 0 Phone: () - 05/16 CBC w/ auto diff NRBC % #/100W BC 0.0 0.2 0.0 FINAL Abdulkadir Jaime [facility] [place], [address] [place] [id number] 0 Phone: () - 05/16 CBC w/ auto diff RBC M/uL 4.2 5.6 3.94 Low FINAL Abdulkadir Jaime [facility] [place], [address] [place] [id number] 0 Phone: () - 05/16 CBC w/ auto diff HCT % 39.0 49.0 38.5 Low FINAL Abdulkadir Jaime [facility] [place], [address] [place] [id number] 0 Phone: () - 05/16 CBC w/ auto diff MCV fL 80.0 104.0 97.7 FINAL Abdulkadir Jaime [facility] [place], [address] [place] [id number] 0 Phone: () - 05/16 CBC w/ auto diff MCH pg 26.0 35.0 32.0 FINAL Abdulkadir Jaime [facility] [place], [address] [place] [id number] 0 Phone: () - 05/16 CBC w/ auto diff MCHC g/dL 30.0 35.0 32.7 FINAL Abdulkadir Jaime [facility] [place], [address] [place] [id number] 0 Phone: () - 05/16 CBC w/ auto diff MPV fL 9.5 13.4 10.3 FINAL Abdulkadir Sandoval [facility] [place], [address] [facility] [facility] [address] [place] [id number] 0 Phone: () - 05/16 CBC w/ auto diff RDW % 11.3 15.6 13.10 FINAL Abdulkadir Sandoval [facility] [place], [address] [facility] [address] [facility] [id number] 0 Phone: () - 05/16 CMP Album in g/dL 3.5 5.0 4.2 FINAL Abdulkadir Sandoval * [facility], [facility] [address] [id number] 0 05/16 CMP Alkal ine phosp hatas e U/L 36.0 125.0 104 FINAL Abdulkadir Sandoval * [facility], [facility] [address] [id number] 0 05/16 CMP ALT/S GPT U/L 0.0 49.0 19 FINAL Abdulkadir Sandoval * [facility], [facility] [address] [place] [address] [id number] 0 05/16 CMP AST/S GOT U/L 17.0 59.0 39 FINAL Abdulkadir Sandoval * [facility], [facility] [address] [id number] 0 05/16 CMP BUN mg/dL 9.0 20.0 23.0 High FINAL Abdulkadir Sandoval * [facility], [facility] [address] [id number] 0 05/16 CMP Calci um mg/dL 8.4 10.2 9.3 FINAL Abdulkadir Sandoval * [facility], [facility] [address] [id number] 0 05/16 CMP Chlor narinder mmol/L 96.0 107.0 104 FINAL Abdulkadir weinberg [facility], [address] [facility] [id number] 0 05/16 CMP CO2 mmol/L 22.0 30.0 [...] hour stability window. FINAL Abdulkadir Rajan sultana [facility], [facility] [address] [id number] 0 05/16 CMP Creat inine mg/dL 0.66 1.25 1.00 FINAL Abdulkadir weinberg [facility], [address] [id number] 0 05/16 CMP GFR estim ate ml/min /1.73m ^2 73.5 GFR is calculate d using the CKD-EPI equation. FINAL Abdulkadir Rajan sultana [facility], [address] [facility] [address] [id number] 0 05/16 CMP Gluco se mg/dL 74.0 100.0 71 Low FINAL Abdulkadir Rajan a [facility], [address] [facility] [id number] 0 05/16 CMP Potas sium mmol/L 3.5 5.1 4.2 FINAL Abdulkadir Rajan a [facility], [address] [id number] 0 05/16 CMP Sodiu m mmol/L 137.0 145.0 141 FINAL Abdulkadir Sandoval * [facility], [facility] [address] [place] [address] [id number] 0 05/16 CMP Bilir ubin, total mg/dL 0.2 1.3 0.3 FINAL Abdulkadir Jaime * [facility], [facility] [address] [id number] 0 05/16 CMP Total prote in g/dL 6.3 8.2 6.7 FINAL Abdulkadir Jaime * [address] [place] [address] [id number] 0 05/16 PSA diagn ostic panel PSA ng/mL 0.0 3.9 0.08 Test performed at [facility] on a [employer] 7600 Immunoass ay Analyzer that uses an immunomet yuko immunoass ay technique . Patient testing should not be performed using multiple methodolo gies due to analytica l variation seen between test methodolo gies. FINAL Abdulkadir Sandoval * [address] [place] [address] [id number] 0 08/05 PSA diagn ostic panel PSA ng/ml 0.0 3.9 <0.06 Repeate d Test performed at [facility] on a [employer] 7600 Immunoass ay Analyzer that uses an immunomet yuko immunoass ay technique . Patient testing should not be performed using multiple methodolo gies due to analytica l variation seen between test methodolo gies. FINAL Abdulkadir Sandoval * [facility], [address] [place] [address] [place] [address] [id number] 0 08/05 Di tin panel Di tin ng/mL 17.9 464.0 20.90 FINAL Abdulkadir Sandoval * [facility], [address] [facility] [id number] 0 08/05 CMP Album in g/dL 3.5 5.0 3.8 FINAL Abdulkadir Sandoval * [facility], [address] [facility] [id number] 0 08/05 CMP Alkal ine phosp hatas e U/L 36.0 125.0 127 High FINAL Abdulkadir Sandoval * [facility], [address] [facility] [id number] 0 08/05 CMP ALT/S GPT U/L 0.0 49.0 18 FINAL Abdulkadir Sandoval * [facility], [address] [facility] [id number] 0 08/05 CMP AST/S GOT U/L 17.0 59.0 32 FINAL Abdulkadir Sandoval * [facility], [address] [facility] [id number] 0 08/05 CMP BUN mg/dL 9.0 20.0 27.0 High FINAL Abdulkadir Sandoval * [facility], [address] [facility] [id number] 0 08/05 CMP Calci um mg/dL 8.4 10.2 9.5 FINAL Abdulkadir Sandoval * [facility], [address] [facility] [id number] 0 08/05 CMP Chlor narinder mmol/L 96.0 107.0 108 High FINAL Abdulkadir Sandoval * [facility], [address] [facility] [id number] 0 08/05 CMP CO2 mmol/L 22.0 30.0 [...] hour stability window. FINAL Abdulkadir Jaime * [facility], [address] [id number] 0 08/05 CMP Creat inine mg/dL 0.66 1.25 1.00 FINAL Abdulkadir Jaime * [facility], [facility] [address] [id number] 0 08/05 CMP GFR estim ate ml/min /1.73m ^2 73.4 GFR is calculate d using the CKD-EPI equation. FINAL Abdulkadir Jaime * [facility], [address] [id number] 0 08/05 CMP Gluco se mg/dL 74.0 100.0 119 High FINAL Abdulkadir Jaime * [facility], [address] [id number] 0 08/05 CMP Potas sium mmol/L 3.5 5.1 3.8 FINAL Abdulkadir Jaime * [facility], [address] [id number] 0 08/05 CMP Sodiu m mmol/L 137.0 145.0 140 FINAL Abdulkadir Jaime * [facility], [address] [id number] 0 08/05 CMP Bilir ubin, total mg/dL 0.2 1.3 0.4 FINAL Abdulkadir Jaime * [facility] [place], [address] [facility] [place] [id number] 0 08/05 CMP Total prote in g/dL 6.3 8.2 6.6 FINAL Abdulkadir Jaime * [facility] [place], [address] [facility] [place] [id number] 0 08/05 CBC w/ auto diff WBC K/uL 3.0 8.9 5.6 FINAL Abdulkadir Jaime [facility] [place], [address] [place] [id number] 0 Phone: () - 08/05 CBC w/ auto diff HGB g/dL 12.5 16.6 10.9 Low FINAL Abdulkadir Jaime [facility] [place], [address] [place] [id number] 0 Phone: () - 08/05 CBC w/ auto diff PLT K/uL 113.0 364.0 192 FINAL Abdulkadir Jaime [facility] [place], [address] [place] [id number] 0 Phone: () - 08/05 CBC w/ auto diff Cayetano # (ANC) K/uL 1.6 6.6 3.3 FINAL Abdulkadir Jaime [facility] [place], [address] [place] [id number] 0 Phone: () - 08/05 CBC w/ auto diff Cayetano % % 43.0 74.0 58.6 FINAL Abdulkadir Jaime [facility] [place], [address] [place] [id number] 0 Phone: () - 08/05 CBC w/ auto diff IG % % 0.0 0.5 0.2 FINAL Abdulkadir Jaime [facility] [place], [address] [place] [id number] 0 Phone: () - 08/05 CBC w/ auto diff IG # K/uL 0.0 0.03 0.01 FINAL Abd[facility]adirshell [facility] - [place], [address] [place] [id number] 0 Phone: () - 08/05 CBC w/ auto diff LY % % 14.0 41.0 22.7 FINAL Abdulkadirshell [facility] - [place], [address] [place] [id number] 0 Phone: () - 08/05 CBC w/ auto diff MO % % 6.0 15.0 9.4 FINAL Abdulkadirshell [facility] [place], [address] [place] [id number] 0 Phone: () - 08/05 CBC w/ auto diff EO % % 0.0 7.0 8.6 High FINAL Abdulkadirshell [facility] [place], [address] [place] [id number] 0 Phone: () - 08/05 CBC w/ auto diff BA % % 0.0 2.0 0.5 FINAL Abdulkadir weinberg [facility] - [place], [address] [place] [id number] 0 Phone: () - 08/05 CBC w/ auto diff LY # K/uL 0.4 3.6 1.3 FINAL Abdulkadirshell we[facility] - [place], [address] [place] [id number] 0 Phone: () - 08/05 CBC w/ auto diff MO # K/uL 0.2 1.3 0.5 FINAL Abdulkadir Campbell [facility] - [place], [address] [place] [id number] 0 Phone: () - 08/05 CBC w/ auto diff EO # K/uL 0.0 0.6 0.5 FINAL Abdulkadir Sandoval [facility] [place], [address] [place] [id number] 0 Phone: () - 08/05 CBC w/ auto diff BA # K/uL 0.0 0.2 0.0 FINAL Abdulkadir Jaime [facility] [place], [address] [place] [id number] 0 Phone: () - 08/05 CBC w/ auto diff NRBC % #/100W BC 0.0 0.2 0.0 FINAL Abdulkadir Jaime [facility] [place], [address] [place] [id number] 0 Phone: () - 08/05 CBC w/ auto diff RBC M/uL 4.2 5.6 3.43 Low FINAL Abdulkadir Jaime [facility] [place], [address] [place] [id number] 0 Phone: () - 08/05 CBC w/ auto diff HCT % 39.0 49.0 32.7 Low FINAL Abdulkadir Jaime [facility] [place], [address] [place] [id number] 0 Phone: () - 08/05 CBC w/ auto diff MCV fL 80.0 104.0 95.3 FINAL Abdulkadir Jaime [facility] [place], [address] [place] [id number] 0 Phone: () - 08/05 CBC w/ auto diff MCH pg 26.0 35.0 31.8 FINAL Abdulkadir Jaime [facility] [place], [address] [place] [id number] 0 Phone: () - 08/05 CBC w/ auto diff MCHC g/dL 30.0 35.0 33.3 FINAL Abdulkadir Jaime [facility] [place], [address] [place] [id number] 0 Phone: () - 08/05 CBC w/ auto diff MPV fL 9.5 13.4 10.3 FINAL [facility], [address] [facility] [address] [facility] [id number] 0 Phone: () - 08/05 CBC w/ auto diff RDW % 11.3 15.6 13.40 FINAL [facility]ulkadir Jaime [facility], [address] [facility] [address] [facility] [place] [id number] 0 Phone: () - 11/17 CMP Album in g/dL 3.5 5.0 4.2 FINAL Abdulkadir Sandoval * [facility] , [address] [id number] 0 11/17 CMP Alkal ine phosp hatas e U/L 36.0 125.0 118 FINAL Abdulkadir Sandoval * [facility] , [address] [id number] 0 11/17 CMP ALT/S GPT U/L 0.0 49.0 20 FINAL Abdulkadir Sandoval * [facility] , [address] [id number] 0 11/17 CMP AST/S GOT U/L 17.0 59.0 39 FINAL Abdulkadir Sandoval * [facility] , [address] [id number] 0 11/17 CMP BUN mg/dL 9.0 20.0 30.0 High FINAL Abdulkadir Sandoval * [facility] , [address] [id number] 0 11/17 CMP Calci um mg/dL 8.4 10.2 9.6 FINAL Abdulkadir Sandoval * [facility] , [address] [facility] [id number] 0 11/17 CMP Chlor narinder mmol/L 96.0 107.0 104 FINAL Abdulkadir Jaime * [facility] , [address] [facility] [id number] 0 11/17 CMP CO2 mmol/L 22.0 30.0 [...] hour stability window. FINAL Abdulkadir Sandoval * [facility] , [address] [facility] [id number] 0 11/17 CMP Creat inine mg/dL 0.66 1.25 1.00 FINAL Abdulkadir Jaime * [facility] , [address] [facility] [id number] 0 11/17 CMP GFR estim ate ml/min /1.73m ^2 73.3 GFR is calculate d using the CKD-EPI equation. FINAL Abdulkadir Jaime * [facility] , [address] [facility] [id number] 0 11/17 CMP Gluco se mg/dL 74.0 100.0 117 High FINAL Abdulkadir Jaime * [facility] , [address] [facility] [id number] 0 11/17 CMP Potas sium mmol/L 3.5 5.1 4.2 FINAL Abdulkadir Jaime * [facility] , [address] [facility] [id number] 0 11/17 CMP Sodiu m mmol/L 137.0 145.0 138 FINAL Abdulkadir Sandoval * [facility] , [address] [facility] [id number] 0 11/17 CMP Bilir ubin, total mg/dL 0.2 1.3 0.5 FINAL Abdulkadir Sandoval * [facility] , [address] [facility] [id number] 0 11/17 CMP Total prote in g/dL 6.3 8.2 6.7 FINAL Abdulkadir Sandoval * [facility] , [address] [facility] [id number] 0 11/17 PSA diagn ostic panel PSA ng/ml 0.0 3.9 <0.06 Test performed at [facility] on a [employer]0 Immunoass ay Analyzer that uses an immunomet yuko immunoass ay technique . Patient testing should not be performed using multiple methodolo gies due to analytica l variation seen between test methodunruly plaza. FINAL Abdulkadir Sandoval * [facility] , [address] [facility] [id number] 0 11/17 CBC w/ auto diff WBC K/uL 3.0 8.9 6.0 FINAL Abdulkadir Sandoval Eyadl [facility] , [facility] [place] [facility] [address] [place] [id number] 0 11/17 CBC w/ auto diff HGB g/dL 12.5 16.6 12.3 Low FINAL Abdulkadir Sandovalbrody Castanol [facility] , [facility] [place] [address] [place] [facility] [id number] 0 11/17 CBC w/ auto diff PLT K/uL 113.0 364.0 174 FINAL Abdulkadir Sandoval [place] [facility] , [facility] [place] [address] [place] [id number] 0 11/17 CBC w/ auto diff [place] # (ANC) K/uL 1.6 6.6 3.4 FINAL Abdulkadir Sandoval [place] [facility] , [address] [place] [id number] 0 11/17 CBC w/ auto diff [place] % % 43.0 74.0 55.8 FINAL Abdulkadir Sandoval [place] [facility] , [address] [place] [id number] 0 11/17 CBC w/ auto diff IG % % 0.0 0.5 0.2 FINAL Abdulkadir Sandoval [place] [facility] , [address] [place] [id number] 0 11/17 CBC w/ auto diff IG # K/uL 0.0 0.03 0.01 FINAL Abdulkadir Jaime [place] [facility] , [address] [place] [id number] 0 11/17 CBC w/ auto diff LY % % 14.0 41.0 29.0 FINAL Abdulkadir Jaime [place] [facility] , [address] [place] [id number] 0 11/17 CBC w/ auto diff MO % % 6.0 15.0 10.3 FINAL Abdulkadir Jaime [place] [facility] , [address] [place] [id number] 0 11/17 CBC w/ auto diff EO % % 0.0 7.0 4.2 FINAL Abdulkadir Sandoval [place] [facility] , [address] [place] [id number] 0 11/17 CBC w/ auto diff BA % % 0.0 2.0 0.5 FINAL Abdulkadir Sandoval [place] [facility] , [address] [place] [id number] 0 11/17 CBC w/ auto diff LY # K/uL 0.4 3.6 1.7 FINAL Abdulkadir Sandoval [place] [facility] , [address] [place] [id number] 0 11/17 CBC w/ auto diff MO # K/uL 0.2 1.3 0.6 FINAL Abdulkadir Sandoval [place] [facility] , [address] [place] [id number] 0 11/17 CBC w/ auto diff EO # K/uL 0.0 0.6 0.3 FINAL Abdulkadir Sandoval [place] [facility] , [address] [place] [id number] 0 11/17 CBC w/ auto diff BA # K/uL 0.0 0.2 0.0 FINAL Abdulkadir Sandoval [place] [facility] , [address] [place] [id number] 0 11/17 CBC w/ auto diff NRBC % #/100W BC 0.0 0.2 0.0 FINAL Abdulkadir Sandoval [place] [facility] , [address] [place] [address] [place] [id number] 0 11/17 CBC w/ auto diff RBC M/uL 4.2 5.6 4.17 Low FINAL Abdulkadir Sandoval [place] [facility] , [address] [place] [address] [place] [id number] 0 11/17 CBC w/ auto diff HCT % 39.0 49.0 38.9 Low FINAL Abdulkadir Jaime [place] [facility] , [address] [place] [id number] 0 11/17 CBC w/ auto diff MCV fL 80.0 104.0 93.3 FINAL Abdulkadir Jaime [place] [facility] , [address] [place] [id number] 0 11/17 CBC w/ auto diff MCH pg 26.0 35.0 29.5 FINAL Abdulkadir Jaime [place] [facility] , [address] [place] [id number] 0 11/17 CBC w/ auto diff MCHC g/dL 30.0 35.0 31.6 FINAL Abdulkadir Jaime [place] [facility] , [address] [place] [id number] 0 11/17 CBC w/ auto diff MPV fL 9.5 13.4 11.5 FINAL Abdulkadir Jaime [place] [facility] , [address] [place] [id number] 0 11/17 CBC w/ auto diff RDW % 11.3 15.6 14.60 FINAL Abdulkadir Jaime [place] [facility] , [address] [place] [facility] [address] [address] [place] [id number] 0 02/27 Misc other lab See flow specialist d 03/27 Di tin panel Di tin ng/mL 17.9 464.0 27.20 FINAL Abdulkadir Sandoval * [place] [facility] [place] [facility] , [address] [facility] [id number] 0 03/27 PSA diagn ostic panel PSA ng/ml 0.0 3.9 0.33 Test performed at [facility] on a [employer] 7600 Immunoass ay Analyzer that uses an immunomet yuko immunoass ay technique . Patient testing should not be performed using juma plaza due to analytica l variation seen between test malik plaza. FINAL Abdulkadir Jaime * [place] [facility] [place] [facility] , [address] [facility] [place] [id number] 0 03/27 CBC w/ auto diff MCHC g/dL 30.0 35.0 32.7 FINAL Abdulkadir Jaime [place] [facility] , [address] [address] [place] [id number] 0 03/27 CBC w/ auto diff MPV fL 9.5 13.4 10.1 FINAL Abdulkadir Jaime [place] [facility] , [address] [place] [address] [place] [id number] 0 03/27 CBC w/ auto diff RDW % 11.3 15.6 13.30 FINAL [facility] Jaime [place] [facility] , [address] [place] [address] [place] [id number] 0 03/27 CBC w/ auto diff WBC K/uL 3.0 8.9 4.6 FINAL Abdulkadir Jaime [place] [facility] , [address] [place] [address] [place] [id number] 0 03/27 CBC w/ auto diff HGB g/dL 12.5 16.6 13.0 FINAL Abdulkadir Jaime [place] [facility] , [address] [place] [address] [place] [id number] 0 03/27 CBC w/ auto diff PLT K/uL 113.0 364.0 178 FINAL Abdulkadir Sandoval [place] [facility] , [address] [place] [address] [place] [id number] 0 03/27 CBC w/ auto diff [place] # (ANC) K/uL 1.6 6.6 2.8 FINAL Abdulkadir Sandoval [place] [facility] , [address] [place] [address] [place] [id number] 0 03/27 CBC w/ auto diff [place] % % 43.0 74.0 61.1 FINAL Abdulkadir Sandoval [place] [facility] , [address] [place] [address] [address] [place] [id number] 0 03/27 CBC w/ auto diff IG % % 0.0 0.5 0.0 FINAL Abdulkadir Sandoval [place] [facility] , [address] [place] [id number] 0 03/27 CBC w/ auto diff IG # K/uL 0.0 0.03 0.00 FINAL Abdulkadir Jaime [place] [facility] , [address] [place] [id number] 0 03/27 CBC w/ auto diff LY % % 14.0 41.0 25.4 FINAL Abdulkadir Sandoval [place] [facility] , [address] [place] [id number] 0 03/27 CBC w/ auto diff MO % % 6.0 15.0 11.3 FINAL Abdulkadir Jaime [place] [facility] , [address] [place] [id number] 0 03/27 CBC w/ auto diff EO % % 0.0 7.0 1.5 FINAL Abdulkadir Sandoval [place] [facility] , [address] [place] [id number] 0 03/27 CBC w/ auto diff BA % % 0.0 2.0 0.7 FINAL Abdulkadir Sandoval [place] [facility] , [address] [place] [id number] 0 03/27 CBC w/ auto diff LY # K/uL 0.4 3.6 1.2 FINAL Abdulkadir Sandoval [place] [facility] , [address] [place] [id number] 0 03/27 CBC w/ auto diff MO # K/uL 0.2 1.3 0.5 FINAL Abdulkadir Sandoval [place] [facility] , [address] [place] [id number] 0 03/27 CBC w/ auto diff EO # K/uL 0.0 0.6 0.1 FINAL Abdulkadir Sandoval [place] [facility] , [address] [place] [id number] 0 03/27 CBC w/ auto diff BA # K/uL 0.0 0.2 0.0 FINAL Abdulkadir Sandoval [place] [facility] , [address] [place] [id number] 0 03/27 CBC w/ auto diff NRBC % #/100W BC 0.0 0.2 0.0 FINAL Abdulkadir Sandoval [place] [facility] , [address] [place] [id number] 0 03/27 CBC w/ auto diff RBC M/uL 4.2 5.6 4.19 Low FINAL Abdulkadir Sandoval [place] [facility] , [address] [place] [id number] 0 03/27 CBC w/ auto diff HCT % 39.0 49.0 39.8 FINAL Abdulkadir Sandoval [place] [facility] , [address] [place] [facility] [address] [facility] [id number] 0 03/27 CBC w/ auto diff MCV fL 80.0 104.0 95.0 FINAL [facility] , [address] [facility] [address] [facility] [id number] 0 03/27 CBC w/ auto diff MCH pg 26.0 35.0 31.0 FINAL Abdulkadir Jaime [facility] , [address] [facility] [facility] [address] [facility] [id number] 0 03/27 CMP Album in g/dL 3.5 5.0 4.2 FINAL Abdulkadir Sandoval * [facility] , [address] [id number] 0 03/27 CMP Alkal ine phosp hatas e U/L 36.0 125.0 111 FINAL Abdulkadir Sandoval * [facility] , [address] [id number] 0 03/27 CMP ALT/S GPT U/L 0.0 49.0 20 FINAL Abdulkadir Sandoval * [facility] , [address] [id number] 0 03/27 CMP AST/S GOT U/L 17.0 59.0 40 FINAL Abdulkadir Sandoval * [facility] , [address] [id number] 0 03/27 CMP BUN mg/dL 9.0 20.0 21.0 High FINAL Abdulkadir Sandoval * [facility] , [address] [id number] 0 03/27 CMP Calci um mg/dL 8.4 10.2 9.4 FINAL Abdulkadir Jain * [facility] , [facility] [address] [id number] 0 03/27 CMP Chlor narinder mmol/L 96.0 107.0 101 FINAL Abdulkadir Jaime * [facility] , [facility] [address] [id number] 0 03/27 CMP CO2 mmol/L 22.0 30.0 [...] hour stability window. FINAL Abdulkadir Jaime * [facility] , [facility] [address] [id number] 0 03/27 CMP Creat inine mg/dL 0.66 1.25 1.00 FINAL Abdulkadir Jaime * [facility] , [facility] [address] [id number] 0 03/27 CMP GFR estim ate ml/min /1.73m ^2 73.1 GFR is calculate d using the CKD-EPI equation. FINAL [facility] Jaime * [facility] , [facility] [address] [id number] 0 03/27 CMP Gluco se mg/dL 74.0 100.0 81 FINAL Abdulkadir Jaime * [facility] , [facility] [address] [id number] 0 03/27 CMP Potas sium mmol/L 3.5 5.1 4.3 FINAL Abdulkadir Sandoval * [facility] , [address] [facility] [id number] 0 03/27 CMP Sodiu m mmol/L 137.0 145.0 139 FINAL Abdulkadir Sandoval * [facility] , [address] [facility] [id number] 0 03/27 CMP Bilir ubin, total mg/dL 0.2 1.3 0.3 FINAL Abdulkadir Sandoval * [facility] , [address] [facility] [id number] 0 03/27 CMP Total prote in g/dL 6.3 8.2 6.6 FINAL Abdulkadir Sandoval * [facility] , [address] [facility] [id number] 0 08/05 [facility] other lab See flow specialist d 08/05 [facility] other lab See flow specialist d Medications Date Name Route Dose Frequency [...] Active Vital Signs Date Type Value 04/28/2021 Height 66.00 04/28/2021 Pain Scale 0.00 06/02/2021 BSA 1.79 06/02/2021 BMI 24.99 06/02/2021 Height 66.00 06/02/2021 Weight 154.80 06/02/2021 Pain Scale 0.00 06/02/2021 Intravascular Systolic 142 06/02/2021 Intravascular Diastolic 70 06/02/2021 Respiratory Rate 18.00 06/02/2021 Heart Beat 68.00 06/02/2021 Body Temperature 97.80 06/02/2021 Oxygen Saturation 98.00 08/02/2021 BSA 1.81 08/02/2021 BMI 25.66 08/02/2021 Weight 159.00 08/02/2021 Pain Scale 0.00 08/02/2021 Intravascular Systolic 182 08/02/2021 Intravascular Diastolic 78 08/02/2021 Height 66.00 08/02/2021 Oxygen Saturation 97.00 08/02/2021 Heart Beat 61.00 08/02/2021 Body Temperature 97.80 08/02/2021 Respiratory Rate 16.00 09/02/2021 BSA 1.81 09/02/2021 BMI 25.47 09/02/2021 Height 66.00 09/02/2021 Weight 157.80 09/02/2021 Pain Scale 0.00 09/02/2021 Oxygen Saturation 97.00 09/02/2021 Respiratory Rate 12.00 09/02/2021 Heart Beat 74.00 09/02/2021 Body Temperature 97.40 09/02/2021 Intravascular Systolic 160 09/02/2021 Intravascular Diastolic 89 09/30/2021 Intravascular Systolic 162 09/30/2021 Intravascular Diastolic 79 09/30/2021 Height 66.00 09/30/2021 Pain Scale 3.00 09/30/2021 Intravascular Systolic 183 09/30/2021 Intravascular Diastolic 83 09/30/2021 Oxygen Saturation 97.00 09/30/2021 BMI 25.99 09/30/2021 Heart Beat 72.00 09/30/2021 Body Temperature 97.30 09/30/2021 Weight 161.00 09/30/2021 BSA 1.82 09/30/2021 Respiratory Rate 18.00 12/06/2021 Height 66.00 12/06/2021 Weight 173.00 12/06/2021 [...] Systolic 146 07/25/2022 Intravascular Diastolic 78 10/24/2022 Oxygen Saturation 98.00 10/24/2022 Body Temperature 98.90 10/24/2022 Heart Beat 53.00 10/24/2022 Respiratory Rate 16.00 10/24/2022 Intravascular Systolic 138 10/24/2022 Intravascular Diastolic 78 10/24/2022 BMI 22.95 10/24/2022 Pain Scale 0.00 10/24/2022 Weight 142.20 10/24/2022 Height 66.00 10/24/2022 BSA 1.73 01/18/2023 Heart Beat 65.00 01/18/2023 Respiratory Rate [...] Systolic 146 08/03/2023 Intravascular Diastolic 84 08/03/2023 Respiratory Rate 18.00 08/03/2023 Heart Beat 61.00 08/03/2023 Body Temperature 96.60 08/03/2023 Oxygen Saturation 100.00 11/08/2023 Body Temperature 97.00 11/08/2023 Heart Beat 64.00 11/08/2023 Respiratory Rate 14.00 11/08/2023 Oxygen Saturation 100.00 11/08/2023 BSA 1.79 11/08/2023 Pain Scale 0.00 11/08/2023 Weight 154.60 11/08/2023 Height 66.00 11/08/2023 BMI 24.95 11/08/2023 Intravascular Systolic 126 11/08/2023 Intravascular Diastolic 78 02/01/2024 Respiratory Rate 16.00 02/01/2024 Heart Beat [...]
--- OUTSIDE RECORDS SUMMARY | 2025-08-20 16:52 | XMS_ITS | Data Portability ---
Author Organization [facility], [facility] Address [address] [place] [address] Assessment No assessment recorded. Plan of Treatment Reminders Order Date Submit Date Provider Last Modified By Organization Details Last Modified Time Details Appointments None recorded. Lab None recorded. Referral oncologist referral 2020 021 [facility], [address], [place], [address], 11:44:19 Procedures None recorded. Surgeries None recorded. Imaging US, renal 2020 021 [email or web address] 30 [facility], [address], [place], [address], 08:44:55 CT, chest, w/ contrast 2020 021 [facility], [address], [place], [address], 17:12:12 Medication Orders gentamicin 40 mg/mL injection solution [email or web address], [address], 10:40:40 Casodex 50 mg tablet [address], [address], 10:40:42 Patient TargetsNo targets recorded. Patient InstructionsNo instructions recorded. Reason for Referral Referring Physician: Jamar pack, Urology, Encounter Date: 04/21/2021 Results Created Date Observation Date Name Description Value Unit Range Abnormal Flag Note LastModifiedBy Organization Detail LastModifiedTime 04/15/20 21 04/11/2021 measu remen t of post- voidi ng resid ual urine and/o r bladd er capac ity (PROC ) No observ ation record ed. [email or web address] Not Available 03/20 09:20:26 04/21/20 21 04/19/2021 CT, chest , w/ contr ast No observ ation record ed. [email or web address] [facility] [address] [facility], [place], [address], 04/21/2021 17:12:12 04/21/20 21 04/19/2021 NM, bone scan, whole body No observ ation record ed. [email or web address] Not Available 01/2021 17:12:59 04/21/20 21 04/21/2021 imagi ng/di agnos tic resul t No observ ation record ed. [email or web address] Not Available 01/2021 17:15:10 08/19/20 21 08/15/2021 measu remen t of post- voidi ng resid ual urine and/o r bladd er capac ity (PROC ) No observ ation record ed. [email or web address] Not Available 11/2020 09:33:44 Result Notes None recorded. Procedures Surgical History Date Name Laterality Status Provider Name and Address Organization Details Recorded Time 04/21/20 21 Prostate Biopsy Procedure completed Jamar Moss MD [address] [place] [address],[address], [place], [address], [facility] 04/21/2021 10:14:53 laminectomy completed Beverley [facility] 04/21/2021 10:37:04 tonsillectomy completed Beverley Montgomery [facility] 04/21/2021 10:37:18 Imaging Results None recorded. Procedure Notes None recorded. Medical Equipment None Reported. Allergies Allergen ID Allergen Name Allergen Category Reaction Reaction Severity Criticality Documentation Date Start Date Code Code System Note Provider Name and Address Organization Details Recorded Time 344234 Product containin g penicilli n (product) medicatio n Not available Not available Not available 04/21/2021 79015 8001 SNOMED Beverley Ulises [facility] 10:01:28 [id number] bupropion Not available Not available Not available Not available 04/21/2021 54831 RxNorm Beverley Ulises [facility] 10:01:42 Medications Name Sig Start Date Stop [...] 80 mg by injection route. 2020 active lillianendoza, [place] Not Available Not Available Not Available Vitals Date Recorded Body height Body mass index (BMI) Body weight Provider Name and Address Organization Details Last Updated DateTime 04/21/2021 172.72 cm 24 kg/m2 37509.59 g Beverleybjorn Montgomery [facility] 04/21/2021 10:01:19 Social History Question Answer Notes LastModified by Organizat ion Details LastModified Time Tobacco Smoking Status Former Smoker 1991 Beverley Montgomery [facility] 04/21/2021 10:36:12 When Did You Quit Smoking? 16+yearssinc elastcigaret te [email or web address] Information not available 04/21/2021 What Was The Date Of Your Most Recent Tobacco Screening? 04/21/2021 [email or web address] Information not available 04/21/2021 Sex: Unknown Functional Status None recorded. Mental Status None recorded. Family History Nothing Reported. Medical History Condition Response GERD/Acid Reflux Y Depression Y Past Encounters Encounter ID Performer Location Encounter Start Date Encounter Closed Date Diagnosis/Indication Diagnosis SNOMED-CT Code Diagnosis ICD10 Code Diagnosis IMO Codes Diagnosis Note [id number] Jamar Moss MD [facility] [address] [place], [place] [address] 04/21/2021 09:38:47 04/25/2021 09:11:18 Prostate nodule 0135844747 19928 N40.2 1. Prostate nodule / Elevated PSA- appears to have metastatic prostate cancer (on CT and Bone scan)- s/p TRUS bx of prostate today- complete course of abx- recommend starting Hormonal therapy - start Casodex 50 mg daily- will need Firmagon or Eligard (once tissue dx confirms prostate cancer)- referral to Oncology Renal mass 292411915 N28 .89 2. Left renal mass - 1.4 cm (medial lower pole)- check Renal U/S- given small size - recommend observatio n (re-image in 3-6 months) Lung mass 309173685 R91. 8 3. Possible lung mass (left lower pole)- check CT Chest Lower urin noble tract symptoms due to benign prostatic hypertrophy [id number] 9101 N40.1 4. BPH / Frequency- continue Flomax 0.4 mg daily Health Concerns Section Related Observation LastModified by Organization Detai ls LastModified Time None Recorded Concern Status LastModified by Organization Details LastModified Time None Recorded Advance Directives Directive None Recorded Payers Insurance Date Sequence Insurance Name Policy Number Policy Arechiga Covered Member ID Arechiga Member ID Guarantor Name 04/26/2021 1 MEDICA - PRIME SOLUTION (MEDICARE REPLACEMENT/A DVANTAGE - HMO) [id number] Jose Chan [id number] Jose Chan 04/26/2021 1 MEDICA - DOS ON OR AFTER 2020 - MEDICA GOVERNMENT PROGRAMS - ADVANTAGE SOLUTION (MEDICARE REPLACEMENT/A DVANTAGE - O) [id number] Jose Chan [id number] Jose Chan Notes Date Note Type Note Provider Name and Address Organization Details Recorded Time 04/21/2021 text/html 80 yo male presented with with constipation [...] - diffuse skeletal metastases Jamar Moss MD [address] [facility],[address], [place], [address], [facility] 04/21/2021 10:46:26
--- OUTSIDE RECORDS SUMMARY | 2025-08-20 16:52 | XMS_ITS | CCD ---
Author Name Interface, [email or web address] Address [address] [place] [address] [address] [place] [address] [facility] Address [address] [facility] [address] [place] [address] Care Team Providers Care Wireless Cellular Technician Name Role Phone Abdulkadir Campo Unavailable Unavailable Allergies and Adverse Reactions Care Plan Reason for Visit Encounters Functional Status Diagnostic Results Medications Problems Procedures Social History Visits Vital Signs Notes Section
[2025-08-20 17:30] LABS: Lactate* 1.2 mmol/L (0.5-1.9)
[2025-08-20 17:34] LABS: Hematocrit* 30.5 % (37.0-53.0); Hemoglobin* 9.2 gm/dL (13.5-17.5); Immature Granulocytes Abs Auto 0.02 K/uL (0.00-0.30); Immature Granulocytes Pct Auto 0.3 %; Mean Corpuscular HGB Conc 30 gm/dL (32-36); Mean Corpuscular Hemoglobin 26 pg (26-34); Mean Corpuscular Volume 85 fL (80-100); RDW Coefficient of Variation % 15.7 % (11.5-15.5); Red Blood Count* 3.58 m/uL (4.30-5.90); White Blood Count* 6.93 K/uL (4.50-11.00)
[2025-08-20 17:35] LABS: Lymphocytes Absolute Auto 0.80 K/uL (0.90-2.90)
[2025-08-20 17:36] LABS: Slide Review Reflex No
[2025-08-20 17:47] LABS: Chloride* 109 mmol/L (96-114); Potassium* 3.9 mmol/L (3.6-5.1); Sodium* 138 mmol/L (135-149)
[2025-08-20 17:50] LABS: Anion Gap 6 mEq/L (7-15); Blood Urea Nitrogen* 22 mg/dL (7-30); Calcium* 9.2 mg/dL (8.4-10.6); Carbon Dioxide* 23 mmol/L (20-32); Creatinine* 0.9 mg/dL (0.5-1.5); Est. Creatinine Clearance* 51.03; Estimated Glomerular Filt Rate 83 ml/min; Glucose* 119 mg/dL (60-115)
[2025-08-20 18:19] LABS: PCR FLU A Negative PCR FLU A (Negative); PCR FLU B Negative PCR FLU B (Negative); PCR RSV Negative PCR RSV (Negative); SARS PCR* Negative SARS-CoV-2 (Negative)
--- NOTE | 2025-08-20 19:04 | CRLHL7_ITS ---
For Patients: As a result of the Cures Act, medical imaging exams and procedure reports are released immediately into your electronic medical record. You may view this report before your referring provider. If you have questions, please contact your health care provider. INDICATION: Syncope. TECHNIQUE: Noncontrast CT of the head with multiplanar reconstruction utilizing bone and soft tissue algorithms. COMPARISON: CT head dated 07/14/2025. FINDINGS: No acute intracranial hemorrhage. Similar scattered hypoattenuation within the supratentorial white matter typical of chronic small vessel ischemic changes. Stable chronic lacunar infarct in the left thalamus. The graham-white matter interval is preserved. The ventricles are unchanged in size. There is similar moderate diffuse parenchymal volume loss. No abnormal extra-axial fluid collection is identified. Intact skull base and calvarium. Symmetric globes. Stable focal opacification of the left anterior ethmoid air cells. IMPRESSION: 1. No acute intracranial abnormality. 2. Similar moderate diffuse parenchymal volume loss and chronic small vessel ischemic changes. 3. 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 Please note that all CT scans at this facility use dose modulation, iterative reconstruction, and/or weight-based dosing when appropriate to reduce radiation dose to as low as reasonably achievable. Dictated by Wale Dowling MD @ 08/20/2025 7:29:11 PM (Electronically Signed)
[2025-08-20 19:22] LABS: D Dimer Quantitative* 1.87 ug/ml (0.00-0.50)
[2025-08-20] MEDS: cefTRIAXone 1 GM in 0.9 % SODIUM CHLORIDE Mini-bag 100 ML IVPB (19:31)
--- NOTE | 2025-08-20 19:45 | CRLHL7_ITS ---
For Patients: As a result of the Century Cures Act, medical imaging exams and procedure reports are released immediately into your electronic medical record. You may view this report before your referring provider. If you have questions, please contact your health care provider. Indication: Elevated D-dimer Technique: Postcontrast CTA of the chest following 95 mL Isovue 370 IV contrast. Axial MIP images obtained. Comparison: CT chest abdomen pelvis performed 07/14/2025 Findings: Pulmonary arteries: Respiratory motion degradation. No large central embolism is appreciated. Chronic area of stenosis with distal opacification within the left lower lobe pulmonary arterial tree. Lungs: Significant increase in left lower lobe airspace disease. Mild increase in right basilar airspace disease. Mediastinum: No acute abnormality appreciated. Calcified coronary arterial and aortic atherosclerosis. Lymph nodes: Progressive lymphadenopathy. Upper abdomen: No acute abnormality appreciated. Soft tissues: No acute abnormality appreciated. Bones: No acute abnormality appreciated. Degenerative changes. Evolving fractures. Few sclerotic foci are favored to be unchanged. Impression: 1. Respiratory motion degradation. No large central embolism is appreciated. 2. Significant increase in left basilar consolidative airspace disease with increased lymphadenopathy. Appearance is most suspicious for pneumonia. Aspiration pneumonitis could give a similar appearance. Follow-up CT in 3 months may be considered to ensure resolution. Please note that all CT scans at this facility use dose modulation, iterative reconstruction, and/or weight-based dosing when appropriate to reduce radiation dose to as low as reasonably achievable. Dictated by Carlton Nunes MD @ 08/20/2025 8:22:49 PM (Electronically Signed)
--- NOTE | 2025-08-20 19:45 | PM.IMHP1 ---
Assessment and Plan Assessment and plan (1) Syncope: Problem comment: - in [facility] clinic 08/19/25 prompting EMS transfer to ER - ddx: PNA, vasovagal/orthostasis. Reassuring head CT, no PE on CTA chest - follow orthostatic BPs, hold Trazodone and Tamsulosin - per Epic chart, was also on Losartan and PCP recommended holding/decreasing that medication, given hypotension in clinic Status: Acute (2) Pneumonia: Problem comment: - L bibasilar region, concern for aspiration during clinic visit 08/20/25 - initiate treatment with ceftriaxone and azithromycin - Legionella and strep pending, will screen for MRSA given recent TCU stay Status: Acute (3) Acute hypoxic respiratory failure: Problem comment: - 12/21 PNA Status: Acute (4) Mitral regurgitation: Problem comment: - follows with Dr. Villegas of Cardiology - last TTE 03/2025 with results below Final Impressions: 1. Normal LV size, mildly increased wall thickness, normal function with an estimated EF of 70 - 75%. 2. Right ventricular cavity size is normal, global systolic RV function is normal. 3. Moderately enlarged left atrium. 4. The mitral valve is sclerotic with probably moderate mitral regurgitation, eccentric anteromedially directed jet. No indirect markers of severe (e velocity 1m/s, no PV systolic reversal). 5. Moderately increased estimated pulmonary pressures by tricuspid regurgitation velocity and right atrial pressure (41 mmHg plus RAP). Status: Acute (5) Prostate cancer metastatic to bone: Problem comment: - diagnosed 2020, follows with [facility], currently on treatment break (recent increase from undetectable PSA to 0.33, March 2025) - metastatic to bones and lung Status: Acute (6) Cerebrovascular accident (CVA): Problem comment: - L thalamus lacunar infarct, on daily ASA and statin, no significant residiual deficits Status: Acute (7) Trauma: Problem comment: - fall in June 2025 with multiple rib fractures, vertebral fracture, transverse process fractures; hospitalized at [facility] [place] Status: Acute (8) Physical deconditioning: Problem comment: - Recent trauma and TCU stay (discharged home from the [facility] on 08/19/2025) - will ask PT and OT to evaluate given recent SNF stay Status: Acute Plan - per above (abx, supplemental oxygen, monitoring for recurrent syncope) Total Time Spent Total Time Spent: - per above - requires inpatient stay given acute hypoxic respiratory failure, orthostasis, fluid management Hospitalist- H&P: HPI History of Present Illness Date Seen: 08/20/25 Chief complaint: Weakness Narrative: Jose Chan Jr is a 84 year old male who was brought into the emergency room by ambulance from clinic today after a syncopal episode. Recent history: He was admitted to [facility] [place] from 07/15/25-07/23/25 after a mechanical fall resulting in an anterior L2 vertebral fracture, thoracic transverse process fractures (T6-T10), right rib fractures 5-9. Was discharged from [facility] yesterday with Home Health; daughter has been staying with him. Today he was seen by his PCP (Dr. Fuller) at the [facility] for special care hospital f/u and while being wheeled out of his clinic room, had an episode of unresponsiveness, shallow breathing, thready pulse. IV was placed, Code Blue called, found to be hypotensive (BP frances of 77/41) and confused. Overall improved upon EMS arrival, but then had a large emesis into his nonrebreather mask as he was being loaded into the ambulance. ER: - presented BP 90/53, afebrile, 90% on RA - WBC 6.9, lactate 1.2 - no acute findings on head CT - L sided consolidation on Chest CT, no PE - given azithromycin and ceftriaxone in the ER After arrival to the floor, patient noted to have sinus tachycardia, oxygen saturation as low as 86% on RA, supplemental oxygen applied. Histories reviewed and updated below. Review of Systems Status of ROS: Reports: 10 or more systems reviewed and unremarkable except as noted in History and below [facility] Medical History (Updated 08/20/25 @ 23:49 by Mary Lou Godinez MD) Mitral regurgitation ?I34.0 - Nonrheumatic mitral (valve) insufficiency (ICD-10) Cerebrovascular accident (CVA) ?I63.9 - Cerebral infarction, unspecified (ICD-10) Osteoporosis ?M81.0 - Age-related osteoporosis without current pathological fracture (ICD-10) Left rotator cuff tear arthropathy ?M75.102 - Unspecified rotator cuff tear or rupture of left shoulder, not specified as traumatic (ICD-10) ?M12.812 - Other specific arthropathies, not elsewhere classified, left shoulder (ICD-10) Left wrist fracture ?S62.102A - Fracture of unspecified carpal bone, left wrist, initial encounter for closed fracture (ICD-10) Sleep apnea ?G47.30 - Sleep apnea, unspecified (ICD-10) Prostate cancer metastatic to bone ?C61 - Malignant neoplasm of prostate (ICD-10) ?C79.51 - Secondary malignant neoplasm of bone (ICD-10) Osteoarthritis ?M19.90 - Unspecified osteoarthritis, unspecified site (ICD-10) GERD (gastroesophageal reflux disease) ?K21.9 - Gastro-esophageal reflux disease without esophagitis (ICD-10) COPD (chronic obstructive pulmonary disease) ?J44.9 - Chronic obstructive pulmonary disease, unspecified (ICD-10) Surgical History (Updated 08/20/25 @ 19:54 by Mary Lou Godinez MD) H/O colonoscopy ?Z98.890 - Other specified postprocedural states (ICD-10) Status post left knee replacement ?Z96.652 - Presence of left artificial knee joint (ICD-10) H/O esophagogastroduodenoscopy ?Z98.890 - Other specified postprocedural states (ICD-10) History of laminectomy ?Z98.890 - Other specified postprocedural states (ICD-10) Hx of tonsillectomy ?Z90.89 - Acquired absence of other organs (ICD-10) S/P arthroscopy of right shoulder (11/02/97) ?Z98.890 - Other specified postprocedural states (ICD-10) S/P arthroscopy of left shoulder (12/26/01) ?Z98.890 - Other specified postprocedural states (ICD-10) Social History (Updated 08/20/25 @ 20:59 by Mary Lou Godinez MD) Narrative: Lives independently in [place] (was in [facility] for the month of 07/2025). Daughter Ama would be primary decision maker. Former smoker, no concerning alcohol use. DNR/DNI What is your current living situation?: I presently have a place to live Problems where you live: no known problems Problems where you live details: N/A In the past 12 months, utilities in danger of being shut off: no In past 12 months, lack of transportation kept you from medical appts, meetings, work, or getting things needed for daily living: no In the past 12 mos, have been you worried that your food would run out before you had money to buy more?: never true In the past 12 mos, the food you bought just didn't last and you didn't have money to buy more?: never true Smoking Status: Former smoker What tobacco products do you use: cigarettes Smoking quit date/years: >15 years ago Do you use any of these nicotine containing products: None Second hand tobacco smoke exposure: Yes (around [place] at work) How often do you have a drink containing alcohol: never How often do you have six or more drinks on one occasion: Never AUDIT-C Alcohol total score: 0 Non-prescribed substance use: denies use How often does anyone, including family, friends and others, physically hurt you: never How often does anyone, including family, friends and others, insult or talk down to you: never How often does anyone, including family, friends and others, threaten you with harm: never How often does anyone, including family, friends and others, scream or curse at you: never service: No Meds Home Medications and Allergies Home Medications ?Medication ?Instructions ?Recorded ?Confirmed ?Type albuterol sulfate 90 mcg/actuation inhalation 09/19/23 10/17/23 History aerosol inhaler apalutamide 60 mg tablet (Erleada) mg PO 09/19/23 10/17/23 History atorvastatin 20 mg tablet 20 mg PO DAILY 09/19/23 10/17/23 History famotidine 20 mg tablet 20 mg PO DAILY 09/19/23 10/17/23 History fluticasone propionate 50 1 spray intranasal DAILY 09/19/23 10/17/23 History mcg/actuation nasal spray,suspension mometasone-formoterol HFA 100 2 puff inhalation BID 09/19/23 10/17/23 History mcg-5 mcg/actuation aerosol inhaler (Dulera) tamsulosin 0.4 mg capsule 0.4 mg PO DAILY 09/19/23 10/17/23 History tiotropium bromide 18 mcg capsule 1 cap inhalation DAILY 09/19/23 10/17/23 History with inhalation device (Spiriva with HandiHaler) trazodone 150 mg tablet 150 mg PO QPM 09/19/23 10/17/23 History Allergies Allergy/AdvReac Type Severity Reaction Status Date / Time bupropion Allergy Unknown Verified 05/20/24 14:56 Penicillins Allergy Unknown Verified 05/20/24 14:56 Exam Narrative: Exam Narrative: GEN: Alert, hard of hearing but answering questions appropriately HEENT: EOMIs bilaterally, no scleral icterus CV: Heart rate 100s, heart sounds distant, no notable murmurs R: Decreased bibasilar breath sounds Ab: Soft, no ttp Ext: wwp, no concerning edema Skin: No concerning skin lesions or rashes on exposed skin Neuro: No focal deficits on limited exam Psych: Seems to have mild cognitive impairment, no agitation Const: Vital Signs, click to edit/add: Vital Signs - 24 hr 08/20/25 16:05 08/20/25 16:34 08/20/25 17:29 Temperature 97.5 F L 97.1 F L Pulse Rate [Pulse Oximeter] 72 65 65 Respiratory Rate 20 20 18 Blood Pressure [Le ft Upper Arm] 90/53 L 111/54 L 124/70 Pulse Oximetry 96 95 98 Oxygen Delivery Me thod Nasal Cannula Nasal Cannula Room Air Oxygen Flow Rate 1.5 08/20/25 19:35 Temperature 98.0 F Pulse Rate [Pulse Oximeter] 98 Respiratory Rate 18 Blood Pressure [Le ft Upper Arm] 124/68 Pulse Oximetry 90 Oxygen Delivery Me thod Room Air Oxygen Flow Rate Hospitalist - H&P: Result Labs Labs: Short CBC 08/20/25 Range/Units 17:17 WBC 6.93 (4.50-11.00) K/uL Hgb 9.2 L (13.5-17.5) gm/dL Hct 30.5 L (37.0-53.0) % Plt Count 280 (140-440) K/uL BMP 08/20/25 17:17 Sodium 138 Potassium 3.9 Chloride 109 Carbon Dioxide 23 BUN 22 Creatinine 0.9 Glucose 119 H Calcium 9.2
[2025-08-20] MEDS: AZITHROMYCIN 100 MG/ML inj 500 MG IVPB (20:19)
[2025-08-20] MEDS: ACETAMINOPHEN 325 MG TABLET 975 MG PO (22:34)
[2025-08-20] MEDS: LACTATED RINGERS 1000 ML 1,000 ML 125 ML IV (22:34)
[2025-08-21] VITALS (12 sets, daily range): BP systolic 96–132; BP diastolic 51–76; PULSE 65–106; RESP 16–20; TEMP 36.5–37.3; O2SAT 93–97
[2025-08-21 00:06] LABS: S pneumo Ag Urine S. pneumo Negative (Negative)
--- NOTE | 2025-08-21 04:31 | PC.NURSE ---
Shift note: Patient was brought to the floor for admission at 2024. He came with IV Azithromycin infusing at 200ml/hr. Patient was alert and oriented. Vitally stable. At 2149, HR was elevated butregular rate and rhythm. O2 desaturated to 86. Breath sounds clear bilaterally with noticeable exertional SOB. Skin Warm, dry, intact no visible injuries. MD ordered oxygen1-4 to get O2 above 90. Oxygen 1L given and has been on the oxygen throughout the rest of the night. Iv R/L set up per MD order. At 2229, patient became disoriented, removed the IV line and telebox. New IV line inserted and telemetry reapplied. Assisted several times to the BR with A1, walker and GB. Patient is high due to syncopal episode. Fall precautions initiated included in low position, call light within reach, non-skid socks applied, side rails up ?2.
[2025-08-21 06:02] LABS: Hematocrit* 26.5 % (37.0-53.0); Hemoglobin* 8.2 gm/dL (13.5-17.5); Immature Granulocytes Pct Auto 0.6 %; Mean Corpuscular HGB Conc 31 gm/dL (32-36); Mean Corpuscular Hemoglobin 26 pg (26-34); Mean Corpuscular Volume 84 fL (80-100); RDW Coefficient of Variation % 15.5 % (11.5-15.5); Red Blood Count* 3.17 m/uL (4.30-5.90); White Blood Count* 13.86 K/uL (4.50-11.00)
[2025-08-21 06:05] LABS: Immature Granulocytes Abs Auto 0.10 K/uL (0.00-0.30); Lymphocytes Absolute Auto 1.10 K/uL (0.90-2.90); Slide Review Reflex No
[2025-08-21 06:20] LABS: Chloride* 109 mmol/L (96-114)
[2025-08-21 06:21] LABS: Albumin* 3.0 g/dL (3.3-5.0); Potassium* 4.0 mmol/L (3.6-5.1); Sodium* 138 mmol/L (135-149)
[2025-08-21 06:23] LABS: Blood Urea Nitrogen* 15 mg/dL (7-30); Creatinine* 0.8 mg/dL (0.5-1.5); Est. Creatinine Clearance* 43.13; Estimated Glomerular Filt Rate 86 ml/min
[2025-08-21 06:24] LABS: Alanine Aminotransferase* 24 U/L (4-50); Alkaline Phosphatase* 136 U/L (40-150); Anion Gap 6 mEq/L (7-15); Aspartate Amino Transferase* 29 U/L (12-35); Bilirubin Total* 0.3 mg/dL (0.1-1.5); Calcium* 9.1 mg/dL (8.4-10.6); Carbon Dioxide* 23 mmol/L (20-32); Glucose* 109 mg/dL (60-115); Total Protein* 6.0 g/dL (6.0-8.3)
[2025-08-21] MEDS: ACETAMINOPHEN 325 MG TABLET 975 MG PO ×3 (06:54→22:04)
[2025-08-21] MEDS: LACTATED RINGERS 1000 ML 1,000 ML 125 ML IV ×2 (08:08→18:45)
[2025-08-21] MEDS: cefTRIAXone 1 GM in 0.9 % SODIUM CHLORIDE Mini-bag 100 ML IVPB (09:44)
[2025-08-21] MEDS: AZITHROMYCIN 250 MG TABLET PO (09:44)
[2025-08-21] MEDS: ATORVASTATIN CALCIUM 10 MG TABLET 20 MG PO (09:44)
--- NOTE | 2025-08-21 11:06 | PM.IMPN1 ---
Assessment and Plan Assessment and plan (1) Syncope: Problem comment: - Likely 2/2 hypotension d/t PNA. - in [facility] clinic 08/19/25 prompting EMS transfer to ER - ddx: PNA, vasovagal/orthostasis. Reassuring head CT, no PE on CTA chest - follow orthostatic BPs were WNL - resume Trazodone and Tamsulosin - per Epic chart, was also on Losartan and PCP recommended holding/decreasing that medication, given hypotension in clinic - 08/21; ECHO today didnt show significant , mild-mod MR. Status: Acute (2) Pneumonia: Problem comment: - L bibasilar region, concern for aspiration during clinic visit 08/20/25 - Cont treatment with ceftriaxone and azithromycin - Legionella and strep negative , will screen for MRSA given recent TCU stay - CT chest; ignificant increase in left basilar consolidative airspace disease with increased lymphadenopathy. Appearance is most suspicious for pneumonia. Aspiration pneumonitis could give a similar appearance. Follow-up CT in 3 months may be considered to ensure resolution. Status: Acute (3) Acute hypoxic respiratory failure: Problem comment: - 2/2 PNA Status: Acute (4) Mitral regurgitation: Problem comment: - follows with Dr. Villegas of Cardiology - last TTE 03/2025 with results below Final Impressions: 1. Normal LV size, mildly increased wall thickness, normal function with an estimated EF of 70 - 75%. 2. Right ventricular cavity size is normal, global systolic RV function is normal. 3. Moderately enlarged left atrium. 4. The mitral valve is sclerotic with probably moderate mitral regurgitation, eccentric anteromedially directed jet. No indirect markers of severe (e velocity 1m/s, no PV systolic reversal). 5. Moderately increased estimated pulmonary pressures by tricuspid regurgitation velocity and right atrial pressure (41 mmHg plus RAP). Status: Acute (5) Prostate cancer metastatic to bone: Problem comment: - diagnosed 2020, follows with [facility], currently on treatment break (recent increase from undetectable PSA to 0.33, March 2025) - metastatic to bones and lung Status: Acute (6) Cerebrovascular accident (CVA): Problem comment: - L thalamus lacunar infarct, on daily ASA and statin, no significant residiual deficits Status: Acute (7) Trauma: Problem comment: - fall in June 2025 with multiple rib fractures, vertebral fracture, transverse process fractures; [place] [facility] Status: Acute (8) Physical deconditioning: Problem comment: - Recent trauma and TCU stay (discharged home from the [facility] on 08/19/2025) - will ask PT and OT to evaluate given recent SNF stay Status: Acute (9) Dementia: Status: Acute Total Time Spent Total Time Spent: Today I spent 50 minutes seeing the patient, reviewing [facility] and EPIC notes/diagnostics, discussing the care plan with our care time that includes social work, PT/OT, pharmacy, RT, assisted and documenting my impressions and plan in the medical record. Subjective Date Seen: 08/21/25 Interval history: Patient demented. Patient is doing well. Currently off Oxygen. Exam Narrative: Exam Narrative: Physical exam GENERAL: Comfortable, no acute distress. Patient is not oriented to time or place or situation. HEAD AND NECK: Atraumatic, normocephalic CARDIOVASCULAR: RRR. Normal S1, S2. No murmurs. RESPIRATORY: Clear to auscultation B/L. Good air entry B/L. No wheezes or rhonchi. NEUROLOGY: Alert, awake, Patient is not oriented to time or place or situation.. Normal speech. PSYCH: Normal mood, normal affect. Const: Vital Signs, click to edit/add: Vital Signs - 24 hr 08/20/25 16:05 08/20/25 16:34 08/20/25 17:29 Temperature 97.5 F L 97.1 F L Pulse Rate Pulse Rate [Pulse Oximeter] 72 65 65 Pulse Rate [Right Pulse Oximeter] Pulse Rate [orthos tatic sitting Puls e Oximeter] Pulse Rate [orthos tatic standing Pul se Oximeter] Respiratory Rate 20 20 18 Blood Pressure [Le ft Arm] Blood Pressure [Le ft Upper Arm] 90/53 L 111/54 L 124/70 Blood Pressure [or thostatic sitting Right Arm] Blood Pressure [or thostatic standing Right Arm] Pulse Oximetry 96 95 98 Oxygen Delivery Me thod Nasal Cannula Nasal Cannula Room Air Oxygen Flow Rate 1.5 08/20/25 19:35 08/20/25 20:43 08/20/25 22:00 Temperature 98.0 F 97.5 F L Pulse Rate Pulse Rate [Pulse Oximeter] 98 Pulse Rate [Right Pulse Oximeter] 107 H Pulse Rate [orthos tatic sitting Puls e Oximeter] Pulse Rate [orthos tatic standing Pul se Oximeter] Respiratory Rate 18 18 18 Blood Pressure [Le ft Arm] 115/70 Blood Pressure [Le ft Upper Arm] 124/68 Blood Pressure [or thostatic sitting Right Arm] Blood Pressure [or thostatic standing Right Arm] Pulse Oximetry 90 91 91 Oxygen Delivery Me thod Room Air Room Air Room Air Oxygen Flow Rate 1 08/20/25 22:29 08/20/25 22:37 08/20/25 22:38 Temperature 97.9 F Pulse Rate Pulse Rate [Pulse Oximeter] Pulse Rate [Right Pulse Oximeter] 117 H 117 H Pulse Rate [orthos tatic sitting Puls e Oximeter] Pulse Rate [orthos tatic standing Pul se Oximeter] Respiratory Rate 18 18 Blood Pressure [Le ft Arm] 169/75 H Blood Pressure [Le ft Upper Arm] Blood Pressure [or thostatic sitting Right Arm] Blood Pressure [or thostatic standing Right Arm] Pulse Oximetry 86 L 94 Oxygen Delivery Me thod Room Air Nasal Cannula Oxygen Flow Rate 1 08/20/25 22:38 08/20/25 23:00 08/21/25 02:37 Temperature 97.7 F Pulse Rate 109 H Pulse Rate [Pulse Oximeter] Pulse Rate [Right Pulse Oximeter] 95 Pulse Rate [orthos tatic sitting Puls e Oximeter] Pulse Rate [orthos tatic standing Pul se Oximeter] Respiratory Rate 18 18 Blood Pressure [Le ft Arm] 98/54 L Blood Pressure [Le ft Upper Arm] Blood Pressure [or thostatic sitting Right Arm] Blood Pressure [or thostatic standing Right Arm] Pulse Oximetry 94 97 Oxygen Delivery Me thod Nasal Cannula Nasal Cannula Oxygen Flow Rate 1 1 08/21/25 07:00 08/21/25 07:00 08/21/25 07:00 Temperature 99.2 F Pulse Rate Pulse Rate [Pulse Oximeter] Pulse Rate [Right Pulse Oximeter] 99 Pulse Rate [orthos tatic sitting Puls e Oximeter] 96 Pulse Rate [orthos tatic standing Pul se Oximeter] 106 H Respiratory Rate 20 20 Blood Pressure [Le ft Arm] 132/76 Blood Pressure [Le ft Upper Arm] Blood Pressure [or thostatic sitting Right Arm] 99/67 Blood Pressure [or thostatic standing Right Arm] 112/70 Pulse Oximetry 95 95 Oxygen Delivery Me thod Room Air Room Air Oxygen Flow Rate 08/21/25 07:33 Temperature Pulse Rate 90 Pulse Rate [Pulse Oximeter] Pulse Rate [Right Pulse Oximeter] Pulse Rate [orthos tatic sitting Puls e Oximeter] Pulse Rate [orthos tatic standing Pul se Oximeter] Respiratory Rate Blood Pressure [Le ft Arm] Blood Pressure [Le ft Upper Arm] Blood Pressure [or thostatic sitting Right Arm] Blood Pressure [or thostatic standing Right Arm] Pulse Oximetry Oxygen Delivery Me thod Oxygen Flow Rate Labs Labs: Laboratory Results - last 24 hr 08/20/25 08/20/25 08/20/25 17:17 17:24 19:03 WBC 6.93 RBC 3.58 L Hgb 9.2 L Hct 30.5 L MCV 85 MCH 26 MCHC 30 L RDW Coeff of Neris 15.7 H Plt Count 280 Neut % (Auto) 73.3 H Lymph % (Auto) 11.4 L Barren % (Auto) 9.4 Eos % (Auto) 5.3 Baso % (Auto) 0.3 Neut # (Auto) 5.10 Lymph # (Auto) 0.80 L Barren # (Auto) 0.70 Eos # (Auto) 0.37 Baso # (Auto) 0.02 Abs Immat Gran (auto) 0.02 Imm/Tot Granulo (auto) 0.3 D-Dimer Quant (PE/DVT) 1.87 H Sodium 138 Potassium 3.9 Chloride 109 Carbon Dioxide 23 Anion Gap 6 L BUN 22 Creatinine 0.9 Estimated Creat Clear 51.03 Estimated GFR 83 Glucose 119 H Lactate 1.2 Calcium 9.2 Total Bilirubin AST ALT Alkaline Phosphatase Total Protein Albumin Urine L. pneumophilia Ag Urine Strep pneumoniae Ag SARS-CoV-2 (PCR) Negative SARS-CoV-2 Influenza Type A (PCR) Negative PCR FLU A Influenza Type B (PCR) Negative PCR FLU B RSV (PCR) Negative PCR RSV Lab Acknowledgement Test Added 08/20/25 08/21/25 Unknown 05:53 WBC 13.86 H RBC 3.17 L Hgb 8.2 L Hct 26.5 L MCV 84 MCH 26 MCHC 31 L RDW Coeff of Neris 15.5 Plt Count 399 Neut % (Auto) 85.6 H Lymph % (Auto) 8.2 L Barren % (Auto) 5.3 Eos % (Auto) 0.2 Baso % (Auto) 0.1 Neut # (Auto) 11.90 H Lymph # (Auto) 1.10 Barren # (Auto) 0.70 Eos # (Auto) 0.00 Baso # (Auto) 0.00 Abs Immat Gran (auto) 0.10 Imm/Tot Granulo (auto) 0.6 D-Dimer Quant (PE/DVT) Sodium 138 Potassium 4.0 Chloride 109 Carbon Dioxide 23 Anion Gap 6 L BUN 15 Creatinine 0.8 Estimated Creat Clear 43.13 Estimated GFR 86 Glucose 109 Lactate Calcium 9.1 Total Bilirubin 0.3 AST 29 ALT 24 Alkaline Phosphatase 136 Total Protein 6.0 Albumin 3.0 L Urine L. pneumophilia Ag L. pneumo Negative Urine Strep pneumoniae Ag S. pneumo Negative SARS-CoV-2 (PCR) Influenza Type A (PCR) Influenza Type B (PCR) RSV (PCR) Lab Acknowledgement
--- NOTE | 2025-08-21 12:26 | PC.SOCIAL ---
Addendum entered by SHAUN Cormier 08/21/25 14:19: Discharge planning: Resumption of home care orders when pt discharges [facility] at fax number #[phone]. Social work to follow-up as needed. Addendum entered by SHAUN Cormier 08/21/25 14:13: Discharge planning: composition worker spoke to the intake line at [facility]. #[phone] and they stated that the pt is on their service for home care PT/OT and they will need resumptions orders when the pt discharges from the hospital. Social work to follow-up as needed. Addendum entered by SHAUN Cormier 08/21/25 13:02: Discharge planning: [facility] Pt's daughter stated that they were out to the pt's house already for the intake appointment. composition worker will reach out to [facility]. to let them know that the pt is in the hospital again. Social work to follow-up as needed. Original Note: Discharge planning: composition worker met with the pt and his daughter, Solange. Solange states that she has been staying with her father 11/06 since he was released from [facility] on 08/19/25. Solange states that the pt is not left alone and if she needs to go somewhere or has a personal appointment one of two children or her come and stay with the pt so that he is not alone. composition worker asked if this arrangement needed to continue long-term would it be sustainable for their family and the daughter said that it would. Pt's daughter has no concerns with the pt returning back to his home in her care. Pt's daughter did not want any resources at this time either. composition worker relayed this information to the provider on duty who stated that the pt would most likely discharge on Sunday. Social work to follow-up as needed.
--- NOTE | 2025-08-21 19:29 | PC.NURSE ---
End of shift 1201-2601 - Pt alert, oriented to self only at start of shift, and cooperative. RN reoriented pt to time, place, and situation and pt appeared to remain oriented for remainder of shift. Up with standby assistance and walker/gait belt. Tolerating RA and regular diet/fluids. Denies pain, SOB, n/v. IV remained intact during shift. Family at bedside. Pt appears to be resting comfortably in chair at end of shift with call light within reach.
[2025-08-21] MEDS: SODIUM CHLORIDE 0.9 % (FLUSH) 10 ML SYRINGE 5 ML IVF (22:05)
[2025-08-22] MEDS: LACTATED RINGERS 1000 ML 1,000 ML 125 ML IV (01:47)
[2025-08-22 01:52] VITALS: BP 139/74; PULSE 74; RESP 18; TEMP 36.7; O2SAT 96
--- NOTE | 2025-08-22 05:14 | PC.NURSE ---
Pt rested well tonight. Up SBA with walker. Oriented x3. Reporting zero pain. Voiding. Tele Sinus Arryth. SOB with exertion. vs unremarkable.
[2025-08-22 05:38] VITALS: TEMP 36.7
[2025-08-22] MEDS: ACETAMINOPHEN 325 MG TABLET 975 MG PO (05:38)
[2025-08-22 06:08] LABS: Hematocrit* 27.4 % (37.0-53.0); Hemoglobin* 8.4 gm/dL (13.5-17.5); Mean Corpuscular HGB Conc 31 gm/dL (32-36); Mean Corpuscular Hemoglobin 26 pg (26-34); Mean Corpuscular Volume 85 fL (80-100); Red Blood Count* 3.24 m/uL (4.30-5.90); White Blood Count* 8.42 K/uL (4.50-11.00)
[2025-08-22 06:12] LABS: Slide Review Reflex No
[2025-08-22 06:29] LABS: Chloride* 105 mmol/L (96-114)
[2025-08-22 06:30] LABS: Potassium* 4.1 mmol/L (3.6-5.1); Sodium* 137 mmol/L (135-149)
[2025-08-22 06:32] LABS: Blood Urea Nitrogen* 20 mg/dL (7-30); Creatinine* 1.0 mg/dL (0.5-1.5); Est. Creatinine Clearance* 51.30; Estimated Glomerular Filt Rate 73 ml/min
[2025-08-22 06:33] LABS: Anion Gap 6 mEq/L (7-15); Calcium* 9.1 mg/dL (8.4-10.6); Carbon Dioxide* 26 mmol/L (20-32); Glucose* 92 mg/dL (60-115)
[2025-08-22 07:00] VITALS: BP 137/84; PULSE 48; PULSE 79; RESP 24; TEMP 36.7; O2SAT 97
[2025-08-22 07:45] VITALS: RESP 24; O2SAT 95
[2025-08-22] MEDS: ATORVASTATIN CALCIUM 10 MG TABLET 20 MG PO (09:14)
[2025-08-22] MEDS: cefTRIAXone 1 GM in 0.9 % SODIUM CHLORIDE Mini-bag 100 ML IVPB (09:14)
[2025-08-22] MEDS: AZITHROMYCIN 250 MG TABLET PO (09:14)
[2025-08-22] MEDS: SODIUM CHLORIDE 0.9 % (FLUSH) 10 ML SYRINGE 5 ML IVF (09:15)
--- NOTE | 2025-08-22 09:55 | P.DS_ITS ---
DS: Providers Provider Date Seen: 08/22/25 Date of admission: 08/20/25 22:35 Primary care physician: Rome Fuller MD Admitting Clinician: Mary Lou Godinez MD Consults: 08/20/25 21:02 Consult to Physical Therapy [CONS] Routine Comment: Reason(s) for PT Consult:: Evaluate and Treat Any Restrictions?:: No Restrictions Consult to Respiratory Therapy [CONS] Routine Comment: Reason(s) for RT Consult:: Consult Consult to Financial Developer [CONS] Routine Comment: Reason for Consult:: Discharge Planning Needs 08/20/25 21:06 Consult to Occupational Therapy [CONS] Routine Comment: Reason(s) for OT Consult:: Evaluate and Treat Any Restrictions?:: No Restrictions Attending Physician on discharge: Mary Lou Godinez MD DS: Diagnosis Discharge Diagnosis (1) Syncope: Status: Acute Problem details: - Likely 2/2 hypotension d/t PNA. - in [facility] 08/19/25 prompting EMS transfer to ER - ddx: PNA, vasovagal/orthostasis. Reassuring head CT, no PE on CTA chest - follow orthostatic BPs were WNL - resume Trazodone and Tamsulosin - per Epic chart, was also on Losartan and PCP recommended holding/decreasing that medication, given hypotension in clinic - 08/21; ECHO today didnt show significant , mild-mod MR. - 08/22: Pt needs to follow-up with primary care physician to discuss the follo wing findings and recommendations from our radiologist: 1. CT scan of the chest showed: Significant increase in left basilar consolidative airspace disease with increased lymphadenopathy. Appearance is most suspicious for pneumonia. Aspiration pneumonitis could give a similar appearance. 2. Follow-up CT in 3 months may be considered to ensure resolution. -Our cardiac monitoring, echo and head CT were unremarkable. Pt will need outpatient monitoring by ZIO patch that we will provide + discuss with primary care physician for further evaluation. (2) Pneumonia: Status: Acute Problem details: - L bibasilar region, concern for aspiration during clinic visit 08/20/25 - Cont treatment with ceftriaxone and azithromycin - Legionella and strep negative , will screen for MRSA given recent TCU stay - CT chest; ignificant increase in left basilar consolidative airspace disease with increased lymphadenopathy. Appearance is most suspicious for pneumonia. Aspiration pneumonitis could give a similar appearance. Follow-up CT in 3 months may be considered to ensure resolution. - 08/22: DC on PO Abx to complete the course : Cefdinir and azithromycin. Blood culture showed no growth till now. (3) Acute hypoxic respiratory failure: Status: Acute Problem details: - 12/21 PNA (4) Mitral regurgitation: Status: Acute Problem details: - follows with Dr. Villegas of Cardiology - last TTE 03/2025 with results below Final Impressions: 1. Normal LV size, mildly increased wall thickness, normal function with an estimated EF of 70 - 75%. 2. Right ventricular cavity size is normal, global systolic RV function is normal. 3. Moderately enlarged left atrium. 4. The mitral valve is sclerotic with probably moderate mitral regurgitation, eccentric anteromedially directed jet. No indirect markers of severe (e velocity 1m/s, no PV systolic reversal). 5. Moderately increased estimated pulmonary pressures by tricuspid regurgitation velocity and right atrial pressure (41 mmHg plus RAP). (5) Prostate cancer metastatic to bone: Status: Acute Problem details: - diagnosed 2020, follows with [facility], currently on treatment break (recent increase from undetectable PSA to 0.33, March 2025) - metastatic to bones and lung (6) Cerebrovascular accident (CVA): Status: Acute Problem details: - L thalamus lacunar infarct, on daily ASA and statin, no significant residiual deficits (7) Trauma: Status: Acute Problem details: - fall in June 2025 with multiple rib fractures, vertebral fracture, transverse process fractures; hospitalized at [facility] [place] [place] (8) Physical deconditioning: Status: Acute Problem details: - Recent trauma and TCU stay (discharged home from the [facility] on 08/19/2025) - will ask PT and OT to evaluate given recent SNF stay (9) Dementia: Status: Acute DS: Summary Hospital Course Hospital Course: An 84-year-old male patient with past medical history of CVA and prostate cancer metastatic to the bone presented to the ED after he had a syncopal episode. Patient was found to have consolidation at the lungs and we treated for pneumonia. Our cardiac monitoring, in addition to the echo that was performed during this admission and his head CT were unremarkable. Pt will need outpatient monitoring by ZIO patch that we will provide + discuss with primary care physician for further evaluation.Pt needs to follow-up with primary care physician to discuss the following findings and recommendations from our radiologist:1. CT scan of the chest showed: Significant increase in left basilar consolidative airspace disease with increased lymphadenopathy. Appearance is most suspicious for pneumonia. Aspiration pneumonitis could give a similar appearance. 2. Follow-up CT in 3 months may be considered to ensure resolution. -resume home health previous orders for OT/PT. Status at Discharge Overall status at discharge: patient is progressing back to baseline Time Spent with Patient Time attestation: Total time spent providing and/or coordinating discharge services: Exam Narrative: Exam Narrative: Physical exam GENERAL: Comfortable, no acute distress. Patient is not oriented to time or place or situation. HEAD AND NECK: Atraumatic, normocephalic. Decreased hearing. CARDIOVASCULAR: RRR. Normal S1, S2. No murmurs. RESPIRATORY: Clear to auscultation B/L. Good air entry B/L. No wheezes or rhonchi. NEUROLOGY: Alert, awake, Patient is not oriented to time or place or situation. Normal speech. PSYCH: Normal mood, normal affect. Const: Vital Signs, click to edit/add: Vital Signs - 24 hr 08/21/25 11:00 08/21/25 15:00 08/21/25 15:00 Temperature 98.0 F 97.7 F Pulse Rate Pulse Rate [Right Pulse Oximeter] 86 65 Respiratory Rate 20 20 20 Blood Pressure [Le ft Arm] 115/61 96/51 L Pulse Oximetry 93 93 93 Oxygen Delivery Me thod Room Air Room Air Room Air Oxygen Flow Rate 08/21/25 15:42 08/21/25 19:46 08/21/25 20:23 Temperature 97.8 F Pulse Rate 71 77 Pulse Rate [Right Pulse Oximeter] 78 Respiratory Rate 16 Blood Pressure [Le ft Arm] 121/64 Pulse Oximetry 97 Oxygen Delivery Me thod Room Air Oxygen Flow Rate 08/21/25 22:04 08/21/25 22:12 08/21/25 22:14 Temperature 97.8 F 98 F Pulse Rate Pulse Rate [Right Pulse Oximeter] 82 82 Respiratory Rate 16 16 Blood Pressure [Le ft Arm] 103/59 L Pulse Oximetry 95 Oxygen Delivery Me thod Room Air Oxygen Flow Rate 0 08/21/25 22:15 08/22/25 01:52 08/22/25 05:38 Temperature 98.1 F 98.1 F Pulse Rate Pulse Rate [Right Pulse Oximeter] 74 Respiratory Rate 18 18 Blood Pressure [Le ft Arm] 139/74 Pulse Oximetry 95 96 Oxygen Delivery Me thod Room Air Room Air Oxygen Flow Rate 08/22/25 07:00 Temperature 98.0 F Pulse Rate Pulse Rate [Right Pulse Oximeter] 79 Respiratory Rate 24 Blood Pressure [Le ft Arm] 137/84 Pulse Oximetry 97 Oxygen Delivery Me thod Room Air Oxygen Flow Rate DS: Data Data Completed and Pending Labs on day of discharge: Labs from last 24 hours 08/22/25 05:45 WBC 8.42 RBC 3.24 L Hgb 8.4 L Hct 27.4 L MCV 85 MCH 26 MCHC 31 L Plt Count 396 Sodium 137 Potassium 4.1 Chloride 105 Carbon Dioxide 26 Anion Gap 6 L BUN 20 Creatinine 1.0 Estimated Creat Clear 51.30 Estimated GFR 73 Glucose 92 Calcium 9.1 Preliminary micro results at discharge 08/20/25 17:17 Blood Culture - Preliminary Blood NO GROWTH AFTER 24 HOURS Discharge Plan Discharge Disposition: Home w/ Parent or Adult Date of Admission: 08/20/25 22:35 Attending Provider on Discharge: Valeria Perez Primary Care Provider: Rome Fuller Condition: Unchanged Anticipated Discharge Date/Time: 08/22/25 09:36 Discharge Medications: New acetaminophen 325 mg Tablet 650 mg PO Q8H PRN (Reason: Pain) 15 Days Qty: 45 0RF cefdinir 300 mg capsule 300 mg PO BID Qty: 6 0RF Rx Instructions: Start August 23 in the morning azithromycin 250 mg tablet 250 mg PO DAILY 3 Days Qty: 3 0RF Rx Instructions: Start August 23 in the morning Continued trazodone 150 mg tablet 150 mg PO QPM tamsulosin 0.4 mg capsule 0.4 mg PO DAILY atorvastatin 20 mg tablet 20 mg PO DAILY tiotropium bromide [Spiriva with HandiHaler] 18 mcg capsule, w/inhalation device 1 cap inhalation DAILY pantoprazole 40 mg tablet,delayed release (DR/EC) 40 mg PO DAILY losartan 25 mg tablet 25 mg PO DAILY Trelegy Ellipta 200-62.5-25 mcg blister with device 1 ea inhalation DAILY Discharge Orders: Discharge Order (Routine); Ordered 08/22/25 Ordered By: Valeria Perez Patient Education: Acetaminophen (By mouth), Azithromycin (By mouth), Cefdinir (By mouth), Pneumonia (IP), Zio (Home Heart Monitor) Additional Instructions: - you need to follow-up with your primary care physician to discuss the following findings and recommendations from our radiologist: 1. CT scan of the chest showed: Significant increase in left basilar consolidative airspace disease with increased lymphadenopathy. Appearance is most suspicious for pneumonia. Aspiration pneumonitis could give a similar appearance. 2. Follow-up CT in 3 months may be considered to ensure resolution. -you were admitted for a brief loss of consciousness (syncope), our cardiac monitoring, echo and head CT were unremarkable. You will need outpatient monitoring by ZIO patch that we will provide. Please discuss with your primary care physician for further evaluation. -resume home health previous orders for OT/PT. Activity Level: Activity as Tolerated Discharge Diet: Heart Healthy (2 gm sodium, low fat) Follow Up Appointments: Rome Fuller MD [Primary Care Provider, Family Practice] - 08/24/25 1:15 pm Referral Note: Patient has a follow-up at [facility] [place] [place] due to fall Forms: Patient Belongings, [facility] Info Instructions Discharge Comments: -resume home health previous orders for OT/PT.
--- NOTE | 2025-08-22 12:53 | PC.NURSE ---
Addendum entered by Jodi Gonsalves RN 08/22/25 13:06: The patient is noted to have a dry cough upon discharge, moving well with a standard walker with SBA. All discharge instructions were reviewed with the patient and his daughter. A ziopatch was also applied and instructions were given. [facility] was called to confirm F/U appointment. One was scheduled and I called the daughter. Jodi ALEMAN BSN Original Note: The patient discharged home with his daughter this afternoon.
--- NOTE | 2025-08-24 14:30 | PC.SOCIAL ---
Discharge planning: SW received call from patient's Home Health Care window caser who inquired about when patient will be discharging. ITALO reviewed chart and notes and informed that patient discharge on 08/22. CM requested that discharge summary be sent. ITALO faxed discharge summary to [phone].
== END 2025-08-22 12:00 | disposition home or self-care (01) | DRG 177 ==
LOC: ED 19:51 → MEDSURG 20:01
PROVIDERS: Student in an Organized Health Care Education/Training Program; Admitting Provider Family Medicine; Emergency Provider Emergency Medicine Emergency Medical Services; PCP Family Medicine; Visit Provider Family Medicine
DX: J69.0 Pneumonitis due to inhalation of food and vomit (principal); J96.01 Acute respiratory failure with hypoxia; C78.00 Secondary malignant neoplasm of unspecified lung; C79.51 Secondary malignant neoplasm of bone; R55 Syncope and collapse; K21.9 Gastro-esophageal reflux disease without esophagitis; J44.9 Chronic obstructive pulmonary disease, unspecified; I34.0 Nonrheumatic mitral (valve) insufficiency; C61 Malignant neoplasm of prostate; Z86.73 Personal history of transient ischemic attack (TIA), and cerebral infarction without residual deficits; S32.029D Unspecified fracture of second lumbar vertebra, subsequent encounter for fracture with routine healing; S22.059D Unspecified fracture of T5-T6 vertebra, subsequent encounter for fracture with routine healing; S22.069D Unspecified fracture of T7-T8 vertebra, subsequent encounter for fracture with routine healing; S22.079D Unspecified fracture of T9-T10 vertebra, subsequent encounter for fracture with routine healing; S22.41XD Multiple fractures of ribs, right side, subsequent encounter for fracture with routine healing
CPT/HCPCS: 36415; 70450; 71045; 71275; 80048; 80053; 83605; 85025; 85027; 85379; 87040; 87081; 87449; 87631; 87899; 93005; 93246; 93306; 97161; 97165; 97530; 99284; 99285; A9270; J0456; J0696; J7030; J7120; Q9967